=== PATIENT | male | born 1950 | race Caucasian/White ===

== ENCOUNTER 2016-12-11 11:20 | Emergency (ER) | payer BC ==
[2016-12-11 12:29] LABS: Hematocrit 32 % (42-52); Hemoglobin 11.3 g/dl (14.0-18.0); Mean Corpuscular HGB Conc 35 g/dl (31-36); Mean Corpuscular Hemoglobin 36 pg (27-31); Mean Corpuscular Volume 102 fL (80-94); Mean Platelet Volume 8 um3 (7.4-10.4); Red Blood Count 3.11 10^6/ul (4.0-5.4); Red Cell Distribution Width 20 % (10.5-15); White Blood Count 3.6 10^3/ul (3.5-10.8)
[2016-12-11 12:48] LABS: Troponin I 0.01 ng/mL (<0.04)
[2016-12-11 12:50] LABS: Albumin 3.8 g/dL (3.2-5.2); EGFR African American 51.1 (>60); EGFR Non-African American 39.7 (>60); Globulin 2.7 g/dL (2-4); Potassium 3.9 mmol/L (3.5-5.0); Total Bilirubin 0.6 mg/dL (0.2-1.0); Total Protein 6.5 g/dL (6.4-8.9)
--- NOTE | 2016-12-11 13:49 | RAD ---
INDICATION: Slurred speech COMPARISON: CT brain April 05, 2014 TECHNIQUE: Noncontrast axial source images were acquired from the skull base to the vertex. FINDINGS: Ventricles/sulci: The ventricles and cisterns are normal in size and configuration for age. Brain parenchyma: There is no focal parenchymal finding, evidence of intracranial mass, or intracranial mass effect. Intracranial hemorrhage:None. Extra-axial spaces: There are no abnormal extra axial fluid collections or evidence of extra-axial mass. Calvarium: There is no calvarial fracture or other calvarial abnormality. Scalp: There is no evidence of scalp or extracalvarial soft tissue abnormality. Paranasal sinuses/mastoid: The paranasal sinuses and mastoid air cells are clear. Other: None. IMPRESSION: NEGATIVE EXAMINATION
[2016-12-11 13:51] LABS: Urine Bacteria Absent (Absent); Urine Bilirubin Negative (Negative); Urine Glucose 2+(150 mg/dL) (Negative); Urine Nitrite Negative (Negative)
--- NOTE | 2016-12-11 17:20 | PN ---
Progress Note - Progress Note SOAP: Subjective: []Multiple myeloma a/p allo transplant 03/04/2016 Presented the ER following seeing PCP who was concerned for a stroke. States several weeks of intermittent slurred/garbled speech. agrees slight left facial droop. Denies any weakness of left arm or leg. Denies any headache, dizziness, or other neuro symptoms. PMH: DM, HTN, DM, severe anxiety, headaches, and bells palsy -- seen in past by Dr. Finn of neuro Meds: ASA, Revlimid maintanence -- see medrec for full list Objective: [] Vital Signs Temp Pulse Resp BP Pulse Ox 98.1 F 51 11 133/76 94 12/11/16 11:25 12/11/16 14:04 12/11/16 16:00 12/11/16 16:30 12/11/16 14:04 A&Ox3, EOMI, PERRLA, FREY, strength=bilat. Very slight droop of left eye noted, no left sided lip droop noted HRR, SR on tele Resp even and non-labored Laboratory Results - last 24 hr 12/11/16 12/11/16 12/11/16 12:15 12:15 12:15 WBC 3.6 RBC 3.11 L Hgb 11.3 L Hct 32 L MCV 102 H MCH 36 H MCHC 35 RDW 20 H Plt Count 106 L MPV 8 Neut % (Auto) 40.2 Lymph % (Auto) 39.9 [place] % (Auto) 10.8 H Eos % (Auto) 4.9 Baso % (Auto) 4.2 H Absolute Neuts (auto) 1.5 Absolute Lymphs (auto) 1.4 Absolute Monos (auto) 0.4 Absolute Eos (auto) 0.2 Absolute Basos (auto) 0.1 Absolute Nucleated RBC 0 Nucleated RBC % 0.1 Sodium 132 L Potassium 3.9 Chloride 101 Carbon Dioxide 24 Anion Gap 7 BUN 19 Creatinine 1.73 H Est GFR ( Amer) 51.1 Est GFR (Non-Af Amer) 39.7 BUN/Creatinine Ratio 11.0 Glucose 212 H Lactic Acid 1.5 Calcium 9.0 Total Bilirubin 0.60 AST 63 H ALT 60 H Alkaline Phosphatase 49 Troponin I 0.01 B-Natriuretic Peptide Total Protein 6.5 Albumin 3.8 Globulin 2.7 Albumin/Globulin Ratio 1.4 Urine Color Urine Appearance Urine pH Ur Specific [place] Urine Protein Urine Ketones Urine Blood Urine Nitrate Urine Bilirubin Urine Urobilinogen Ur Leukocyte Esterase Urine WBC (Auto) Urine RBC (Auto) Urine Bacteria Urine Glucose Urine Ascorbic Acid 12/11/16 12/11/16 12:15 13:25 WBC RBC Hgb Hct MCV MCH MCHC RDW Plt Count MPV Neut % (Auto) Lymph % (Auto) [place] % (Auto) Eos % (Auto) Baso % (Auto) Absolute Neuts (auto) Absolute Lymphs (auto) Absolute Monos (auto) Absolute Eos (auto) Absolute Basos (auto) Absolute Nucleated RBC Nucleated RBC % Sodium Potassium Chloride Carbon Dioxide Anion Gap BUN Creatinine Est GFR ( Amer) Est GFR (Non-Af Amer) BUN/Creatinine Ratio Glucose Lactic Acid Calcium Total Bilirubin AST ALT Alkaline Phosphatase Troponin I B-Natriuretic Peptide 258 H Total Protein Albumin Globulin Albumin/Globulin Ratio Urine Color Yellow Urine Appearance Clear Urine pH 5.0 Ur Specific [place] 1.016 Urine Protein 2+(100 mg/dl) H Urine Ketones Negative Urine Blood Negative Urine Nitrate Negative Urine Bilirubin Negative Urine Urobilinogen Negative Ur Leukocyte Esterase Negative Urine WBC (Auto) Absent Urine RBC (Auto) Absent Urine Bacteria Absent Urine Glucose 2+(150 mg/dl) H Urine Ascorbic Acid * H Assessment/Plan: []66 yo male with stable myeloma per labs, minimal change in light chains over last 3 months but without evidence for progressive disease s/p allotransplant approx. 8 months ago; ultimately very low risk for underlying myeloma as cause of neuro symptoms (no elevated IgM therefore no evidence for hyperviscosity). Known risk for hypercoagulability with Revlimid, currently on ASA. DDx includes recurrent [place] Palsy and TIA. If requires work-up for TIA would request hospitalist input for expertise, otherwise suggest outpatient work-up with MRI of head w/wo LANDON, carotid doppler LANDON, and referral back to Dr. Finn. I have instructed him to hold Revlimid and we will see him back in our office 12/13 as scheduled. Case discussed with ER , Dr. Schwarz (hospitalist), and attending (Dr. Jones )
--- NOTE | 2016-12-11 17:37 | ED ---
Davida Almodovar Anna, scribed for Christy Lepe MD on 12/11/16 at 1725 . Progress - Progress Note Progress Note: Patient was signed out from Dr. Long at shift change. Patient was evaluated by Umm Fountain and recommended for outpatient follow up. His diagnosis is facial droop, and he should follow up with Dr. Finn. Course/Dx - Diagnoses Provider Diagnoses: Facial droop The documentation as recorded by the Davida mcfarland Anna accurately reflects the service I personally performed and the decisions made by , Christy Lepe MD.
[2016-12-11 17:38] VITALS: BP 135/68
--- NOTE | 2016-12-11 20:58 | CONS ---
CC: Dr. Finn; Aditya Weston NP NEUROLOGY CONSULT: DATE OF CONSULT: 12/11/16 REQUESTING PHYSICIAN: Dr. Long in ED. NEUROLOGIST: Dr. Finn. PRIMARY CARE PROVIDER: Aditya Weston NP REASON FOR CONSULT: Left facial weakness and dysarthria. HISTORY OF PRESENT ILLNESS: The patient is a 66-year-old right-handed male who about 1 week ago started to have symptoms of feeling hoarse in the voice and feeling dry in the throat, gradually progressing to dysarthria and per the family, swelling of the left side of his face. He also intermittently had problem with walking and balance; however, this was not a continuous problem. He denies any double vision, numbness, choking on food, or weakness in the legs or arms and there has been no reports of confusion. He eventually came to the ED today for evaluation. PAST MEDICAL HISTORY: 1. Hypertension. 2. Diabetes, type 2. 3. Sleep apnea. 4. GERD. 5. History of multiple myeloma, s/p bone marrow allograft. He has closely been followed by Hematology, currently on Revlimid 6. Chronic kidney disease, stage 3. 7. Sluggish gallbladder with history of pancreatitis. 8. Anxiety. 9. Question of renal mass. 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 I looked at his picture on his driving license issued in 2009 with new picture, and there was no ptosis or obvious facial abnormality. PAST SURGICAL HISTORY: 1. He had a bone marrow transplant. 2. Melanoma in the right axilla. 3. Carpal tunnel release on the right hand. 4. Multiple cardiac catheterizations. MEDICATIONS: Include: 1. Metformin 500 mg p.o. b.i.d. 2. Zofran p.r.n. 3. Triamcinolone topical daily. 4. Spiriva 1 inhalation daily. 5. Protonix 40 mg p.o. daily. 6. Oxycodone p.r.n. 7. Nitroglycerin p.r.n. 8. Multivitamin. 9. Metoprolol XL 50 mg p.o. daily. 10. Losartan 50 mg p.o. daily. 11. Loperamide 4 mg p.o. 4 times daily p.r.n. 12. Lenalidomide (Revlimid) 10 mg p.o. daily for 21 days cycles and 7 days off 13. Lantus. 14. Isosorbide. 15. Gabapentin 300 mg 4 times a day. 16. Flexeril 10 mg p.o. t.i.d. p.r.n. 17. Colace. 18. Diltiazem CD 120 mg p.o. daily. 19. Cholecalciferol 6000 units daily. 20. Aspirin 81 mg p.o. daily. 21. Albuterol. 22. Acyclovir 400 mg p.o. b.i.d. 23. Xanax. ALLERGIES: No known drug allergies. FAMILY HISTORY: History of Alzheimer's disease in mother. Father at age 76 with renal failure, diabetes, and heart disease. One of the sisters has heart problems and he has a brother who of sarcoma. SOCIAL HISTORY: He quit smoking a few years ago, but has a long history of smoking prior to that. Drinks only occasionally/socially. Lives with his . REVIEW OF SYSTEMS: Complete review of systems was performed and other than not mentioned above is negative. PHYSICAL EXAM: Blood pressure 126/71, pulse rate 55, respiratory rate 12, O2 sat 94% on room air, temperature 98.1. The patient is awake, alert, and oriented x3. He is in no acute distress. Speech is fluent, but dysarthric; however, it is completely intelligible. Pupils are symmetric and reactive to light. Extraocular movements are intact. Visual acuña are intact by confrontation. There is a mild ptosis on the left eyelid and also slight facial droop on the left side. Sensation is intact to light touch and pinprick in V1 to V3 bilaterally other than a slight increase in sensation to pinprick in the left V3 distribution. Tongue is in midline. Palate elevates upward. Strength is 5/5 throughout. Sensation is intact to light touch and pinprick in the upper and lower extremities. [id number] is intact bilaterally with a very slight target tremor in the left hand with [id number]; however, there is no clear dysmetria. Rapid alternating movements are intact. Gait is narrow based, but cautious. Heart has regular rate and rhythm. Abdomen is slightly distended, but soft and nontender. DIAGNOSTIC STUDIES/LAB DATA: WBC 3.6, hemoglobin 11.3, hematocrit 32, platelets 106. Sodium 132, potassium 3.9, BUN 19, creatinine 1.73. AST 63, ALT 60, alkaline phosphatase 49. Imaging: CT of the head today was negative for acute abnormalities. ASSESSMENT AND PLAN: The patient is a 66-year-old male with history of multiple myeloma under chemotherapy with Revlimid now, who has developed gradual progressive dysarthria and left-sided facial droop within the last week. On exam, currently he has third nerve and probably 7th involvement. The progression of these are not consistent with a vascular event but rather with a slow growing pathology such as involvement of the meninges in the setting of multiple myeloma versus a new onset brain malignancy,. The patient needs an MRI with and without contrast plus an MRA. Based on those results may need an LP. After discussion with the patient and his felt that inpatient admission is more appropriate to proceed with the workup as outlined above. Time at bedside at least 45 minutes. [id number]/CPS #: [id number] MTDD
--- NOTE | 2016-12-23 21:15 | ED ---
I, Oh,Sonandiniun, scribed for Wilbert Long MD on 12/11/16 at 1419 . Neurological HPI - HPI Summary HPI Summary: This 66 y/o male presents to ED after being noted with slurred speech at family doctor office today AM. present at bedside also expresses concern about pt' s recent memory issues. She reports that pt "would put something in front of him and forget that he put it there". No recent head injury. Pt reports mild PUCKETT , but denies any fever, chills, or difficulty with gait. PMHx includes DM, HTN, GERD, carpal tunnel at RUE hand, multiple melanoma s/p removal, bone marros transplant, CAD s/p stent placement, and Rehman Palsy that is currently resolved. Pt cannot recall which side of his faced was affected by Rehman Palsy. Primary care involves Aditya Weston NP. - History of Current Complaint Chief Complaint: EDNeurologicalDeficit Stated Complaint: STROKE LIKE SYMPTOMS Time Seen by Provider: 12/11/16 11:33 Hx Obtained From: Patient, Family/Power Bender Operator - present at bedside, Medical Records Onset/Duration: Started hours ago, Still Present Timing: Constant Onset Severity: Moderate Current Severity: Moderate Character: Impaired Speech, Other: - "memory issues" per Aggravating: Nothing Alleviating: Nothing Associated Signs and Symptoms: Positive: Headache - mild, Impaired Speech - Additional Pertinent History Primary Care Physician: [id number] - Allergy/Home Medications Allergies/Adverse Reactions: Allergies Allergy/AdvReac Type Severity Reaction Status Date / Time No Known Allergies Allergy Verified 12/14/16 12:57 PMH/Surg Hx/FS Hx/Imm Hx Endocrine/Hematology History: Reports: Hx Diabetes - INSULIN and metformin, Hx Anemia Cardiovascular History: Reports: Hx Angina, Hx Coronary Artery Disease - STENT X3, Hx Hypercholesterolemia, Hx Hypertension, Other Cardiovascular Problems/ Disorders - 3 stents Denies: Hx Cardiac Arrest, Hx Pacemaker/ICD Respiratory History: Reports: Hx Asthma - possible, Hx Seasonal Allergies, Hx Sleep Apnea Denies: Other Respiratory Problems/Disorders - DENIES Comment Only: Hx Chronic Obstructive Pulmonary Disease (COPD) - possible GI History: Reports: Hx Gastroesophageal Reflux Disease Comment Only: Other GI Disorders - GERD/HX OD PANCREATITIS History: Reports: Hx Kidney Stones - many years ago Denies: Hx Renal Disease Comment Only: Other Problems/Disorders - benign growth on L kidney Musculoskeletal History: Reports: Hx Arthritis, Hx Back Problems - arthritis Sensory History: Reports: Hx Contacts or Glasses Denies: Hx Cataracts - lens implants, Hx Hearing Aid Opthamlomology History: Reports: Hx Contacts or Glasses Denies: Hx Cataracts - lens implants Neurological History: Reports: Other Neuro Impairments/Disorders - numbness R hand Psychiatric History: Reports: Hx Anxiety - with panic attacks Denies: Hx Panic Disorder - Cancer History Cancer Type, Location and Year: 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 MULTIPLE MELANOMA Hx Chemotherapy: Yes - Surgical History Surgery Procedure, Year, and Place: CAD - HEART STENT -, 09/2013 ( [employer] X3 - [employer] - @[place] - CONDITIONAL 5 FOR 1.5T ONLY). carpal tunnel/trigger finger surgery. cataracts. Rt AXILLA DISSECTION - REMOVED TUMOR-1977 - Immunization History Date of Tetanus Vaccine: Unk Date of Influenza Vaccine: Fall 2012 Infectious Disease History: No Infectious Disease History: Reports: Hx Shingles - 10/2015 Denies: Hx Clostridium Difficile, Hx Hepatitis, Hx Human Immunodeficiency Virus (HIV), Hx of Known/Suspected MRSA, Hx Tuberculosis, Hx Known/Suspected VRE , Hx Known/Suspected VRSA, History Other Infectious Disease, Traveled Outside the [place] in Last 30 Days - Family History Known Family History: Positive: Cardiac Disease - Social History Alcohol Use: Rare Substance Use Type: Reports: None Hx Tobacco Use: Yes - PIPE AND OCCASSIONAL CIGAR Smoking Status (MU): Former Smoker Type: Cigarettes Length of Time of Smoking/Using Tobacco: went form about 1pck/d Cigarettes,to pipe occ cigar. Have You Smoked in the Last Year: No Review of Systems Negative: Fever Negative: Blurred Vision, Erythema Negative: Sore Throat Negative: Chest Pain Negative: Shortness Of Breath, Cough Negative: Abdominal Pain, Vomiting, Nausea Negative: dysuria, hematuria Negative: Myalgia, Edema Positive: Headache - mild, Numbness - chronic numbness at BLE secondary to DM and at RUE hand secondary to carpal tunnel, Slurred Speech Negative: Anxious, Depressed All Other Systems Reviewed And Are Negative: Yes Physical Exam - Summary Physical Exam Summary: Constitutional: Well-developed, Well-nourished, Alert. (-) Distressed Skin: Warm, Dry HENT: Eyes: Conjunctiva normal Neck: Musculoskeletal ROM normal neck. (-) JVD, (-) Stridor, (-) Tracheal deviation Cardio: Rhythm regular, rate normal, Heart sounds normal; Intact distal pulses ; The pedal pulses are 2+ and symmetric. Radial pulses are 2+ and symmetric. (- ) Murmur Pulmonary/Chest wall: Effort normal. (-) Respiratory distress, (-) Wheezes, (-) Rales Abd: Soft. (-) Tenderness, (-) Distension, (-) Guarding, (-) Rebound Musculoskeletal: (-) Edema Lymph: (-) Cervical adenopathy Neuro: Alert, Oriented x3, Strength normal (+) Mild facial droop on left side. ( +) Mild ptosis on left eyelid. (-) Dysmetria, (-) Nystagmus, (-) Ataxia by finger to nose testing, (-) Sensory deficit. Psych: Mood and affect Normal Triage Information Reviewed: Yes Vital Signs On Initial Exam: Initial Vitals Temp Pulse Resp BP Pulse Ox 98.1 F 56 20 140/69 99 12/11/16 11:25 12/11/16 11:25 12/11/16 11:25 12/11/16 11:25 12/11/16 11:25 Vital Signs Reviewed: Yes - Srikanth Coma Scale Coma Scale Total: 15 Diagnostics - Vital Signs Vital Signs Temp Pulse Resp BP Pulse Ox 12/11/16 14:00 51 10 94 12/11/16 13:00 51 10 126/71 92 12/11/16 12:00 53 14 104/60 94 12/11/16 11:38 55 12 95 12/11/16 11:37 116/61 12/11/16 11:25 98.1 F 56 20 140/69 99 - Laboratory Lab Results: Lab Results 12/11/16 12/11/16 12/11/16 Range/Units 12:15 12:15 12:15 WBC 3.6 (3.5-10.8) 10^3/ul RBC 3.11 L (4.0-5.4) 10^6/ul Hgb 11.3 L (14.0-18.0) g/dl Hct 32 L (42-52) % MCV 102 H (80-94) fL MCH 36 H (27-31) pg MCHC 35 (31-36) g/dl RDW 20 H (10.5-15) % Plt Count 106 L (150-450) 10^3/ul MPV 8 (7.4-10.4) um3 Neut % (Auto) 40.2 (38-83) % Lymph % (Auto) 39.9 (25-47) % [place] % (Auto) 10.8 H (1-9) % Eos % (Auto) 4.9 (0-6) % Baso % (Auto) 4.2 H (0-2) % Absolute Neuts (auto) 1.5 (1.5-7.7) 10^3/ul Absolute Lymphs (auto) 1.4 (1.0-4.8) 10^3/ul Absolute Monos (auto) 0.4 (0-0.8) 10^3/ul Absolute Eos (auto) 0.2 (0-0.6) 10^3/ul Absolute Basos (auto) 0.1 (0-0.2) 10^3/ul Absolute Nucleated RBC 0 10^3/ul Nucleated RBC % 0.1 Sodium 132 L (133-145) mmol/L Potassium 3.9 (3.5-5.0) mmol/L Chloride 101 (101-111) mmol/L Carbon Dioxide 24 (22-32) mmol/L Anion Gap 7 (2-11) mmol/L BUN 19 (6-24) mg/dL Creatinine 1.73 H (0.67-1.17) mg/dL Est GFR ( Amer) 51.1 (>60) Est GFR (Non-Af Amer) 39.7 (>60) BUN/Creatinine Ratio 11.0 (8-20) Glucose 212 H (70-100) mg/dL Lactic Acid 1.5 (0.5-2.0) mmol/L Calcium 9.0 (8.6-10.3) mg/dL Total Bilirubin 0.60 (0.2-1.0) mg/dL AST 63 H (13-39) U/L ALT 60 H (7-52) U/L Alkaline Phosphatase 49 (34-104) U/L Troponin I 0.01 (<0.04) ng/mL Total Protein 6.5 (6.4-8.9) g/dL Albumin 3.8 (3.2-5.2) g/dL Globulin 2.7 (2-4) g/dL Albumin/Globulin Ratio 1.4 (1-3) Urine Color Urine Appearance Urine pH (5-9) Ur Specific [place] (1.010-1.030) Urine Protein (Negative) Urine Ketones (Negative) Urine Blood (Negative) Urine Nitrate (Negative) Urine Bilirubin (Negative) Urine Urobilinogen (Negative) Ur Leukocyte Esterase (Negative) Urine WBC (Auto) (Absent) Urine RBC (Auto) (Absent) Urine Bacteria (Absent) Urine Glucose (Negative) Urine Ascorbic Acid (Negative) 12/11/16 Range/Units 13:25 WBC (3.5-10.8) 10^3/ul RBC (4.0-5.4) 10^6/ul Hgb (14.0-18.0) g/dl Hct (42-52) % MCV (80-94) fL MCH (27-31) pg MCHC (31-36) g/dl RDW (10.5-15) % Plt Count (150-450) 10^3/ul MPV (7.4-10.4) um3 Neut % (Auto) (38-83) % Lymph % (Auto) (25-47) % [place] % (Auto) (1-9) % Eos % (Auto) (0-6) % Baso % (Auto) (0-2) % Absolute Neuts (auto) (1.5-7.7) 10^3/ul Absolute Lymphs (auto) (1.0-4.8) 10^3/ul Absolute Monos (auto) (0-0.8) 10^3/ul Absolute Eos (auto) (0-0.6) 10^3/ul Absolute Basos (auto) (0-0.2) 10^3/ul Absolute Nucleated RBC 10^3/ul Nucleated RBC % Sodium (133-145) mmol/L Potassium (3.5-5.0) mmol/L Chloride (101-111) mmol/L Carbon Dioxide (22-32) mmol/L Anion Gap (2-11) mmol/L BUN (6-24) mg/dL Creatinine (0.67-1.17) mg/dL Est GFR ( Amer) (>60) Est GFR (Non-Af Amer) (>60) BUN/Creatinine Ratio (8-20) Glucose (70-100) mg/dL Lactic Acid (0.5-2.0) mmol/L Calcium (8.6-10.3) mg/dL Total Bilirubin (0.2-1.0) mg/dL AST (13-39) U/L ALT (7-52) U/L Alkaline Phosphatase (34-104) U/L Troponin I (<0.04) ng/mL Total Protein (6.4-8.9) g/dL Albumin (3.2-5.2) g/dL Globulin (2-4) g/dL Albumin/Globulin Ratio (1-3) Urine Color Yellow Urine Appearance Clear Urine pH 5.0 (5-9) Ur Specific [place] 1.016 (1.010-1.030) Urine Protein 2+(100 mg/dl) H (Negative) Urine Ketones Negative (Negative) Urine Blood Negative (Negative) Urine Nitrate Negative (Negative) Urine Bilirubin Negative (Negative) Urine Urobilinogen Negative (Negative) Ur Leukocyte Esterase Negative (Negative) Urine WBC (Auto) Absent (Absent) Urine RBC (Auto) Absent (Absent) Urine Bacteria Absent (Absent) Urine Glucose 2+(150 mg/dl) H (Negative) Urine Ascorbic Acid * H (Negative) Result Diagrams: 12/11/16 12:15 12/11/16 12:15 Lab Statement: Any lab studies that have been ordered have been reviewed, and results considered in the medical decision making process. - CT Brain CT Interpretation: No Acute Changes - Negative exam CT Interpretation Completed By: Radiologist - EKG 1301 Cardiac Rate: Bradycardia - 50 bpm EKG Rhythm: Sinus Bradycardia Course/Dx - Diagnoses Provider Diagnoses: Facial droop - Physician Notifications Discussed Care of Patient With: Dr. Brian (Neurologist) at 1430 PM Instructed by Provider To: MD Will See In ED Discharge - Discharge Plan Condition: Guarded Disposition: HOME Referrals: Andreia Finn MD [Medical Doctor] - Aditya Weston NP [Primary Care Provider] - Additional Instructions: Follow up with Dr. Finn and consult with Dr. Finn to schedule an MRI. The documentation as recorded by the Aristides mcfarland Soohyun accurately reflects the service I personally performed and the decisions made by Ethan webster Jerry, MD.
== END 2016-12-11 17:38 | disposition home or self-care (01) ==
LOC: ED 11:20
DX: R29.810 Facial weakness (principal); I12.9 Hypertensive chronic kidney disease with stage 1 through stage 4 chronic kidney disease, or unspecified chronic kidney disease; E11.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mellitus with diabetic chronic kidney disease; N18.3 Chronic kidney disease, stage 3 (moderate); G47.30 Sleep apnea, unspecified; F41.9 Anxiety disorder, unspecified; K21.9 Gastro-esophageal reflux disease without esophagitis; Z85.820 Personal history of malignant melanoma of skin; Z79.82 Long term (current) use of aspirin
CPT/HCPCS: 36415; 70450; 80053; 81003; 81015; 83605; 83880; 84484; 85025; 93005; 99283

== ENCOUNTER → 2017-01-25 12:03 | Day surgery (SDC) | payer BC ==
[~2017-01-25 12:03] MED LIST: Buffered Lidocaine 1% SYRIN* 3 ML/SYR SYRINGE INTRADERM ONE; Bupivacaine 0.25% SDV* 30 ML ONE; Clindamycin 900 MG IVPREMIX(* 900 MG/50 ML SDV IV ONE; Midazolam* 1 MG/ML 2 ML VIAL (2 MG) ONE; fentaNYL* 50 MCG/ML 2 ML VIAL (100 MCG VIAL) ONE
[2017-01-25 15:53] VITALS: BP 114/71
== END | disposition home or self-care (01) ==
LOC: OREAST 12:03
PROVIDERS: ATTEND Plastic Surgery
DX: G56.01 Carpal tunnel syndrome, right upper limb (principal); E11.8 Type 2 diabetes mellitus with unspecified complications; Z79.4 Long term (current) use of insulin; I25.10 Atherosclerotic heart disease of native coronary artery without angina pectoris; Z95.5 Presence of coronary angioplasty implant and graft; I10 Essential (primary) hypertension; J45.909 Unspecified asthma, uncomplicated; Z87.891 Personal history of nicotine dependence; C90.00 Multiple myeloma not having achieved remission
CPT/HCPCS: J2250; J3010

== ENCOUNTER → 2017-10-02 10:26 | Day surgery (SDC) | payer BC ==
[~2017-10-02 10:26] MED LIST changes: -Buffered Lidocaine 1% SYRIN* 3 ML/SYR SYRINGE INTRADERM ONE; -Bupivacaine 0.25% SDV* 30 ML ONE; -Clindamycin 900 MG IVPREMIX(* 900 MG/50 ML SDV IV ONE; +Diazepam TAB(*) 5 MG ONE; +Heparin 2 UNITS/ML IVPREMIX* 1,000 ML IV ONE; +Heparin(*) 1000 UNIT/ML 10 ML VIAL CATH LAB IV ONE; +Iodixanol* (CONTRAST) 320 MG/ML 100 ML SDV ONE; +Lidocaine 1% INJ* 10 MG/ML 30 ML SDV ONE; +Midazolam* 1 MG/ML 10 ML VIAL (10 MG) ONE; -Midazolam* 1 MG/ML 2 ML VIAL (2 MG) ONE; +NS 0.9% 1000 ML* 1,000 ML IV SCH; +VERAPAMIL 2.5 MG/ML 4 ML VIAL ONE; +diPHENhydraMINE PO* 25 MG ONE; +nitroGLYCERIN DRIP* 25,000 MCG/250 ML BTL ONE
[2017-10-02 17:15] VITALS: BP 155/77
--- NOTE | 2017-10-03 09:39 | CATH ---
CC: Aditya Weston NP * CARDIAC CATHETERIZATION REPORT: DATE OF PROCEDURE: 10/02/17 INDICATIONS FOR PROCEDURE: The patient with epigastric discomfort with a history of moderate coronary artery disease with an abnormal nuclear stress test suggested with abnormal proximal anterior/anterolateral perfusion report assessed for the presence of progression in coronary artery disease. PROCEDURE: Coronary arteriography, left heart catheterization. The patient was interviewed and examined in the office where the risks and benefits were explained and he understood them and wished to proceed. The patient was brought to the cardiovascular laboratory where a formal time-out was performed. A coronary arteriography was performed. The patient was prepped and drape in sterile fashion. Of note, in the holding area the right radial artery was assessed and found to be of an appropriate size for an approach for the procedure. The patient was brought to the cardiovascular laboratory where a formal time-out performed and the patient was prepped and draped in sterile fashion. Right radial artery area was anesthetized with 1% lidocaine. The right radial artery was entered and a 6- Sammarinese Glidesheath was placed followed by the radial artery cocktail of 3000 units of heparin, 300 micrograms of nitroglycerin and 3 mg of verapamil. Coronary arteriography was performed utilizing a 5-Sammarinese 4 curved right coronary catheter as well as a 5- Sammarinese 3.5 curve left coronary catheter. Central aortic pressure was recorded using 5-Sammarinese Performa radial catheter, which was advanced to the ascending aorta. The catheter was then passed across the aortic valve into left ventricle , where left ventricular pressure was recorded and pull back was performed. Following this, the catheter was removed and the sheath was removed and hemostasis was obtained with a Vasc band. The total contrast used for the case was 75 cc of Omnipaque dye. The radiation exposure included 9.7 minutes of fluoro time. The air kerma radiation was 1262 milligray. The DAP radiation was 7348 microgray per meter sq. RESULTS: HEMODYNAMIC DATA: Central aortic pressure was recorded at 157/70 with a mean of 107, left ventricular pressure 158 over left ventricular end-diastolic pressure of 31 (of note, the patient was hydrated with at least 500 cc of normal saline prior to coming into the cardiovascular laboratory in light of his renal insufficiency). CORONARY ARTERIOGRAPHY: A. Right coronary artery - a dominant vessel supplying multiple acute marginal branches and the PDA ending in a posterior left ventricular branch. There was moderate narrowing seen in the proximal and mid segment of the right coronary artery with luminal reduction seen to be as much as 40% to 45%. The distal most last posterior left ventricular branch appeared to have a significant 80% obstruction noted in its worst view. B. Left coronary artery: 1. Left main - widely patent. 2. Left anterior descending artery. There was a 60% to 65% proximal lesion in its worst view in the left anterior descending artery. The continuation of the left anterior descending artery had mild 25% to 30% narrowing seen throughout its mid-to- distal portion. The first diagonal branch was a small caliber vessel as was the second diagonal branch. The second diagonal branch itself had moderate disease seen in the mid segment of a small caliber vessel with narrowing as much as 55%. 3. The circumflex artery was a nondominant vessel with a widely patent stent that was placed from the past. There was [id number] narrowing of 35 % to 40% seen in the mid circumflex just after the stented area. This appeared to be unchanged from prior cardiac catheterization. OVERALL ASSESSMENT: Evidence of significant left ventricular diastolic dysfunction with increased left ventricular end diastolic pressure which partly could be due to aggressive hydration, precardiac catheterization in light of renal insufficiency. Moderate coronary artery disease in the left system with the proximal narrowing appearing to be with the proximal lesion being somewhat worst than in prior cardiac catheterization. Stress test however, failed to show any [id number] anterior apical ischemia noted. The most significant lesion was a distal posterior left ventricular branch of the right coronary artery, which reviewing the nuclear images does seem to show the presence of ischemia. At this point in time being a branch distal vessel attempts will be made for increased medical management and if we cannot stabilize the patient with this consideration for stenting the distal vessel for symptoms will be made. At that point, alternative fractional flow reserve analysis of the proximal LAD could be made as well. For now, we will work on medical management and consider increasing the metoprolol and possibly the amlodipine and following him carefully for symptom stabilization. In the meantime, he will also have a BUN and creatinine drawn in 48 hours to decide on restarting his metformin in light of his renal insufficiency. [id number]/[facility] #: [id number] [facility]
== END | disposition home or self-care (01) ==
LOC: CHICATH 10:26
PROVIDERS: ATTEND Internal Medicine Cardiovascular Disease
DX: I25.119 Atherosclerotic heart disease of native coronary artery with unspecified angina pectoris (principal); R10.13 Epigastric pain; R94.39 Abnormal result of other cardiovascular function study; N28.9 Disorder of kidney and ureter, unspecified; E11.9 Type 2 diabetes mellitus without complications; Z79.84 Long term (current) use of oral hypoglycemic drugs; Z79.4 Long term (current) use of insulin; G47.30 Sleep apnea, unspecified; K21.9 Gastro-esophageal reflux disease without esophagitis
CPT/HCPCS: 76937; 93458; A9270-GY; J1644; J2250; J3010

== ENCOUNTER 2017-10-26 10:44 | Inpatient (IN) | payer BC ==
[2017-10-26] MEDS ORDERED: NS 0.9% 1000 ML* 1,000 ML IV ONE (11:07)
--- OUTSIDE RECORDS SUMMARY | 2017-10-26 11:07 | XMS REPORT ---
:1950 External Reference #:[id number] Author Organization [facility] Address [address] [address] Phone [phone] Care Team Providers Name Role Phone Emmanuel David NP Primary Care Physician Unavailable Payers Type Date Identification Numbers Payment Provider Subscriber Commercial Effective: Policy Number: [id number] BS Facets Charo Josse 2012 PayID: [id number] [address] [address] [place] [id number] Medigap Part B Effective: 2009 Policy Number: BS Of CNLeonor Mancilla Josse [id number] Expires: 2012 PayID: [id number] [address] [address] [place] [id number] Problems Date Description Provider Status Onset: 09/27/2011 Coronary arteriosclerosis Jacqueline Garg D.O. Active Onset: 02/26/2012 Chest pain Jacqueline Garg D.O. Active Onset: 06/04/2012 Hyperlipidemia Brianda Butcher N.PPaul Active Onset: 06/04/2012 Benign essential hypertension Brianda Butcher, N.PPaul Active Onset: 10/30/2012 Coronary arteriosclerosis Jacqueline Garg D.O. Active Onset: 09/15/2013 Angina decubitus Jacqueline Garg D.O. Active Onset: 11/28/2013 Essential hypertension Jimmie Malone M.D., [facility], Active [facility] Onset: 11/28/2013 Chronic ischemic heart disease Jimmie Malone M.D., [facility], Active [facility] Onset: 11/28/2013 Radiation injury Jimmie Malone M.D., [facility], Active [facility] Onset: 03/26/2015 Tremor Andreia Finn M.D. Active Onset: 03/26/2015 Headache Andreia Finn M.D. Active Onset: 07/14/2015 Essential hypertension Jimmie Malone M.D., [facility], Active [facility] Onset: 07/14/2015 Chronic ischemic heart disease, Jimmie Malone M.D., [facility], Active unspecified [facility] Onset: 08/10/2016 Carpal tunnel syndrome of right Andreia Finn M.D. Active wrist Onset: 12/14/2016 Facial palsy Andreia Finn M.D. Active Onset: 08/14/2017 Snapping thumb syndrome Jericho Herr MD Active Onset: 08/14/2017 Acquired trigger finger Jericho Herr MD Active Onset: 09/05/2017 Angina pectoris Jimmie Malone M.D., [facility], Active [facility] Onset: 09/18/2017 Lateral epicondylitis Jericho Herr MD Active Onset: 10/08/2017 Athscl heart disease of [place] Jimmie Malone M.D., [facility] , Active art w oth ang pct[facility] Family History Date Family Member(s) Problem(s) Comments General Heart Disease General Diabetes General Cancer Father due to Renal () - was in Failure his 70s. 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 Used to smoke cigarettes then pipe then cigars. Recreational Drug Use Denies Drug Use Daily Caffeine Consumes on average 2 cups of regular coffee per day Daily Caffeine Consumes on average 1 soda diet per day Exercise Type/Frequency Exercises regularly Walks, 3 times a week, 3 miles at a time, Allergies, Adverse Reactions, Alerts Date Description Reaction Status Severity Comments 09/04/2016 Augmentin active diarrhea 01/27/2011 NKDA inactive Medications Medication Date Status Form Strength Qnty SIG Indications Ordering Provider Atorvastatin 09/12 Active Tablets 20mg 90tab take 1 Jimmie Calcium s tablet at [place], bedtime M.DPaul, [facility], [facility] Amlodipine 09/05 Active Tablets 5mg 30tab 1 by mouth I10 Jimmie Besylate s every day Brock Malone, [facility], [facility] Humalog Kwikpen 12/14 Active Solution 100Unit/M 15ml sliding Andreia . Pen-Inject L scale Brock Finn Acyclovir 12/14 Active Tablets 400mg 30tab take 1 Andreia M. s tablet by jonny Finn.Holli twice a day prn Metoprolol 07/14 Active Tablets ER 50mg 180ta 1 by mouth Jimmie Succinate 24HR bs in in the [facility], morning 1 M.D., pill in at [facility], night [facility] Isosorbide 10/28 Active Tablets ER 120mg 90tab 1 by mouth Jimmie Mononitrate ER 24HR s every day Brock Malone, [facility], [facility] [place] 04/17 Active Aerosol 75mcg/Act 3Mon 1 puff bid prn Ordering Provider Proair HFA 04/17 Active Aerosol 108(90Bas 1unit 2 puffs po e) s q4h prn Ordering mcg/Act Provider Oxygen Active 2Liters/M qhs /0000 in Metformin HCL Active Tablets 1000mg 1/2 tablet Unknown 0000 twice daily (500 mg twice daily) Triamcinolone Active Ointment 0.05% 15gm apply to Unknown Acetonide In /0000 affected Absorbase area sparingly daily Lantus Active Solution 100Unit/M 48 units Unknown /0000 L qam Multiple Vitamins Active Tablets 1 po qd Unknown /0000 Iron Active Tablets 325(65Fe) 1 by mouth Unknown /0000 mg every day Oxycodone HCL Active Tablets 10mg as needed Unknown for pain Spiriva Active Capsules 18mcg 1 unit Unknown Handihaler /0000 inhalation daily Gabapentin Active Capsules 300mg 1 am 1 Unknown /0000 noon 1 evening 1 hs Omeprazole Active Capsules 40mg 1 po qd` Unknown DR Aspir-[address] 81mg 1 by mouth Unknown / every day Vitamin D High Active Capsules 2000Units 2 by mouth Unknown Potency /0000 every day Alprazolam Active Tablets 0.5mg 1-2 Unknown tablets 4 times daily as needed Nitroglycerin Active Tablets 0.4mg 1 sl Sub q5mins x3 as needed for chest pain Nystatin Active Powder 10Bu Unknown Valium 12/14 Hx Tablets 5mg 2tabs 1 - 2 tab [facility] PO prior Huma, - to MRI M.D. 07/25 Clopidogrel 10/27 Hx Tablets 75mg 90tab 1 po qd Jimmie [facility] Antoine Ernandez M.D., 03/22 [facility] [place] 09/23 Hx Tablets 5-325mg 20tab 1-2 by Norberto s mouth q Manuela, - as needed M.D. 07/13 Nortriptyline HCL 05/21 Hx Capsules 10mg 120ca 3 po q Andreia Mckeon Antoine Gutierrez M.D. 03/22 Valium 05/19 Hx Tablets 5mg 2tabs 1 - 2 tabs 333.1 by mouth Manuela, - prior to M.D. 03/22 Imdur 01/02 Hx Tablets ER 60mg 150ta 1 1/ po Jimmie 24HR bs Antoine Welch M.D., 10/28 [facility] Diltiazem HCL ER 11/28 Hx Caps ER 120mg 180ca 1 cap by Jimmie 24HR ps mouth Antoine Malone twice a M.D., 08/[address] [facility] Imdur 11/24 Hx Tablets ER 60mg 30tab 1 po qd Jimmie 24HR Antoine Ernandez M.D., 01/02 [facility] Imdur 11/13 Hx Tablets ER 30mg 30tab 1 po qd Jacqueline /2014 24HR Antoine Stallworth D.O. 11/24 Diltiazem CD 10/27 Hx Caps ER 120mg 30cap 1 po qd 24HR s Ordering - Provider 11/28 Aspirin 09/23 Hx Tablets 81mg 100ta 1 po qd bs Antoine Garg.O. 07/25 Plavix 09/23 Hx Tablets 75mg 30tab 1 po qd s Antoine Garg.O. 10/27 Omeprazole 09/15 Hx Capsules 20mg 90cap [address] georges Ordering - Provider 11/04 Ranitidine HCL 09/15 Hx Capsules 150mg 60cap 1 po bid s Ordering - Provider 10/27 Imdur 09/15 Hx Tablets ER 60mg 30tab 1 po daily 24HR s Antoine Garg.O. 11/04 Metoprolol 03/06 Hx Tablets ER 50mg 45tab take one Jimmie Succinate ER 24HR s tablet by Faisal - jonny Gutiérrez, 07/14 every [facility] morning [facility] Atorvastatin 02/25 Hx Tablets 40mg 30tab take one Jimmie Calcium s tablet by Antoine Malone M.D., 09/03 every day [facility] Toprol XL 02/23 Hx Tablets ER 50mg 30tab 1 po qd 24HR s Antoine Garg.O. 09/15 Metoprolol 02/16 Hx Tablets 50mg 60tab 1 po qd Tartrate s Antoine Garg.O. 02/23 Simvastatin 02/16 Hx Tablets 40mg 30tab Take One s Tablet By [place] - Mouth D.O. 02/25 Evening Plavix 02/16 Hx Tablets 75mg 30tab Take One s Tablet By [place] - Mouth D.O. 04/17 Nitrostat 02/16 Hx Tablets 0.4mg 25tab place 1 Sub s tablet Faisal - under the M.DPaul, 09/25 tongue [facility] every 5 [facility] minutes up to 3 doses as needed Xanax 06/08 Hx Tablets 0.5mg 1 to 2 po Antoine Begum M.D. 07/25 Glucotrol XL 06/08 Hx Tablets 10mg 30tab 1 PO qd Antoine Luu M.D. 01/30 Nexium 06/08 Hx Capsules 40mg 30cap 1 PO qd Antoine Luu M.D. 01/27 Zestril 06/08 Hx Tablets 2.5mg 30tab 1 PO qd Antoine Luu M.D. 01/27 Carafate Hx Tablets 1gm 120ta 1 po qid Unknown /0000 bs prn - 01/30 Omeprazole Hx Capsules 40mg 30cap 1 po bid Unknown /0000 s - 02/16 Glipizide ER Hx Tablets ER 10mg 90tab bid Unknown /0000 24HR s - 02/25 Byetta Hx Solution 5mcg/0.02 1mon sc bid Unknown /0000 ML - 01/30 Viagra Hx Tablets 100mg 8tabs 1 po 30 Unknown /0000 min before - intercours 04/21 Avapro Hx Tablets 150mg 30tab 1 po qd Unknown /0000 s - 09/03 Percocet Hx Tablets 5-325mg 40tab 1-2 po q6h Unknown /0000 s prn pain - 01/30 Flexeril Hx Tablets 10mg 40tab 1/2 to 1 Unknown /0000 s po q8h prn - 01/30 Chlorthalidone Hx Tablets 25mg 45tab 1 po qd Unknown /0000 s - 09/15 Amitriptyline HCL 0000 Hx Tablets 10mg 30tab 1/2 po qd Unknown /0000 s - 09/27 Protonix 00/ Hx Tablets DR 40mg 100ta 1 po qd Unknown /0000 bs - 04/17 Novolog Penfill Hx Solution 100Unit/M 10-20 Unknown /0000 L units - before 09/03 (depending on sugar), 45 units @ noon, and 30 units before supper daily. Fish Oil 00/00 Hx 1 qd Unknown / - 11/04 Zantac Hx Capsules 150mg 1 po qd Unknown / - 09/15 Protonix 00/[address] 40mg 30tab 1 po qd Unknown / s - 09/25 Calcitriol Hx Capsules 0.25mcg 90cap 1 po qd Unknown / s - 09/03 Vitamin D 400 / Hx qd Unknown / - 03/22 Topiramate Hx Tablets 25mg 120ta 1 tab po q Unknown / bs evening - 10/27 Hydrochlorothiazi Hx Tablets 25mg 1 by mouth Unknown de /0000 every day - 01/02 Morphine Sulfate Hx Caps ER 30mg 1 by mouth Unknown ER /0000 24HR bid prn - 09/03 Gabapentin / Hx Tablets 600mg bid Unknown / - 09/25 Flexeril Hx Tablets 10mg as needed Unknown /0000 - 07/25 Zofran 00 Hx Tablets 4mg 1 tab by Unknown /0000 mouth - every 6 10/04 hours as needed nausea Valtrex Hx Tablets 500mg take 1 Unknown /0000 tablet by - mouth 12/14 twice day as needed Chemo Therapy 00/00 Hx Unknown /0000 - 09/25 Lasix 00/00 Hx Tablets 20mg 1 by mouth Unknown /0000 every day - 09/03 Colace 00 Hx Capsules 100mg 2 po daily Unknown /0000 prn - 07/25 Humalog 00 Hx Solution 100Unit/M as Unknown /0000 Cartridge L directed - 09/25 Losartan 00 Hx Tablets 50mg 1 by mouth Unknown Potassium /0000 every day - 07/23 Revlimid 0000 Hx Capsules 10mg on for 21 Unknown /0000 days then - off for 7 Novolog Mix 70/30 00/00 Hx Supn (70-30)10 as Unknown Prefilled Flexpen /0000 0Unit/ML directed` - 12/14 Nitroglycerin 00/00 Hx Tablets 0.4mg 1 spray Unknown /0000 Sub with chest - pain,march 02 every 5 mts x max 3 times. if chestpain continues go to er Diltiazem CD 00 Hx Caps ER 120mg 1 by mouth /0000 24HR every day - 09/25 Influenza Virus Active Injection Andreia Mckeon Vaccine /0000 Brock Finn Medications Administered in Office Medication Date Status Form Strength Qnty SIG Indications Ordering Provider Celestone 3 mg Administered Injection Jericho and 3mg 017 MD Carmenza Celestone 3 mg Administered Injection Jericho and 3mg 017 MD Carmenza Celestone 3 mg Administered Injection Jericho and 3mg 017 MD Carmenza Celestone 3 mg Administered Injection Jericho and 3mg 017 MD Carmenza Depomedrol Administered Injection Soni 80MG 015 [place]AND[place] Celestone 3 mg Administered Injection Norberto and 3mg 015 Brock Roy Depomedrol Administered Injection Norberto 80MG 015 Brock Roy Depomedrol Administered Injection Norberto 80MG 012 Brock Roy Depomedrol Administered Injection Norberto 40MG 011 Brock Roy Vital Signs Date Vital Result Comment 10/08/2017 Height 65 inches 5'5" Weight 252.00 lb w/ shoes Heart Rate 76 /min BP Systolic Sitting 142 mmHg lue large cuff BP Diastolic Sitting 86 mmHg lue large cuff BP Systolic Standing 140 mmHg lue large cuff BP Diastolic Standing 80 mmHg lue large cuff Respiratory Rate 18 /min BMI (Body Mass Index) 41.9 kg/m2 Ejection Fraction 55-60% echo 05/15/16 09/26/2017 Height 65 inches 5'5" Weight 248.00 lb Heart Rate 72 /min BP Systolic 172 mmHg home unit (Not Accurate) BP Diastolic 77 mmHg home unit (Not Accurate) BP Systolic Sitting 148 mmHg la, reg BP Diastolic Sitting 64 mmHg la, reg BMI (Body Mass Index) 41.3 kg/m2 Ejection Fraction 55%-60% 05/15/16 echo 09/18/2017 Height 65 inches 5'5" Weight 248.00 lb Heart Rate 80 /min Respiratory Rate 16 /min Body Temperature 97.7 F Pain Level 0 BMI (Body Mass Index) 41.3 kg/m2 09/05/2017 Height 65 inches 5'5" Weight 274.25 lb with shoes Heart Rate 66 /min BP Systolic Sitting 164 mmHg Ra lrg cuff BP Diastolic Sitting 98 mmHg Ra lrg cuff BP Systolic Standing 166 mmHg Ra lrg cuff BP Diastolic Standing 92 mmHg Ra lrg cuff BMI (Body Mass Index) 45.6 kg/m2 Ejection Fraction 55% - 60% echo 05/15/16 08/14/2017 Height 65 inches 5'5" Weight 248.00 lb Heart Rate 72 /min BP Systolic 130 mmHg BP Diastolic 77 mmHg Respiratory Rate 18 /min Body Temperature 97.4 F Pain Level 6 BMI (Body Mass Index) 41.3 kg/m2 01/09/2017 Height 65 inches 5'5" Weight 245.00 lb Heart Rate 68 /min BP Systolic Sitting 118 mmHg BP Diastolic Sitting 72 mmHg Respiratory Rate 14 /min BMI (Body Mass Index) 40.8 kg/m2 12/14/2016 Height 65 inches 5'5" Weight 248.00 lb Heart Rate 78 /min BP Systolic Sitting 118 mmHg BP Diastolic Sitting 64 mmHg Respiratory Rate 16 /min BMI (Body Mass Index) 41.3 kg/m2 09/26/2016 Height 65 inches 5'5" Weight 215.00 lb Heart Rate 72 /min BP Systolic Sitting 118 mmHg BP Diastolic Sitting 64 mmHg Respiratory Rate 18 /min BMI (Body Mass Index) 35.8 kg/m2 09/04/2016 Height 65 inches 5'5" Weight 215.00 lb Heart Rate 72 /min 74 BP Systolic Sitting 122 mmHg left arm, reg cuff BP Diastolic Sitting 60 mmHg left arm, reg cuff BP Systolic Standing 104 mmHg left arm, reg cuff BP Diastolic Standing 58 mmHg left arm, reg cuff Respiratory Rate 24 /min BMI (Body Mass Index) 35.8 kg/m2 Ejection Fraction 55-60% 05/15/16 08/10/2016 Height 65 inches 5'5" Weight 228.00 lb Heart Rate 72 /min BP Systolic Sitting 124 mmHg BP Diastolic Sitting 66 mmHg Respiratory Rate 14 /min BMI (Body Mass Index) 37.9 kg/m2 12/02/2015 Height 65 inches 5'5" Weight 270.00 lb Heart Rate 64 /min BP Systolic Sitting 138 mmHg BP Diastolic Sitting 66 mmHg Respiratory Rate 14 /min BMI (Body Mass Index) 44.9 kg/m2 07/14/2015 Height 65 inches 5'5" Weight 264.00 lb Heart Rate 78 /min 80 BP Systolic Sitting 140 mmHg right arm, large cuff BP Diastolic Sitting 86 mmHg right arm, large cuff BP Systolic Standing 134 mmHg right arm, large cuff BP Diastolic Standing 80 mmHg right arm, large cuff Respiratory Rate 16 /min BMI (Body Mass Index) 43.9 kg/m2 Ejection Fraction 55-60% 09/24/13 04/21/2015 Height 65 inches 5'5" Weight 262.00 lb Heart Rate 68 /min BP Systolic 138 mmHg BP Diastolic 74 mmHg Pain Level 0 BMI (Body Mass Index) 43.6 kg/m2 03/26/2015 Height 65 inches 5'5" Weight 262.00 lb Heart Rate 72 /min BP Systolic Sitting 148 mmHg BP Diastolic Sitting 72 mmHg Respiratory Rate 24 /min BMI (Body Mass Index) 43.6 kg/m2 03/19/2015 Height 65 inches 5'5" Weight 262.00 lb Pain Level 3 8 (at most painful) BMI (Body Mass Index) 43.6 kg/m2 12/25/2014 Height 65 inches 5'5" Weight 260.00 lb Pain Level 7 BMI (Body Mass Index) 43.3 kg/m2 10/28/2014 Height 65 inches 5'5" Weight 260.00 lb Heart Rate 74 /min 82 BP Systolic Sitting 156 mmHg left arm, large cuff BP Diastolic Sitting 84 mmHg left arm, large cuff BP Systolic Standing 154 mmHg left arm, large cuff BP Diastolic Standing 86 mmHg left arm, large cuff Respiratory Rate 24 /min BMI (Body Mass Index) 43.3 kg/m2 10/27/2014 Height 65 inches 5'5" Heart Rate 76 /min BP Systolic 154 mmHg BP Diastolic 78 mmHg 09/23/2014 Height 65 inches 5'5" Weight 264.75 lb Heart Rate 76 /min BP Systolic 153 mmHg BP Diastolic 76 mmHg BMI (Body Mass Index) 44.1 kg/m2 08/27/2014 Height 65.75 inches 5'5.75" Weight 257.00 lb Heart Rate 76 /min BP Systolic Sitting 142 mmHg BP Diastolic Sitting 82 mmHg Respiratory Rate 16 /min BMI (Body Mass Index) 41.8 kg/m2 05/19/2014 Height 65.75 inches 5'5.75" Weight 257.00 lb Heart Rate 7620 /min BP Systolic Sitting 152 mmHg BP Diastolic Sitting 80 mmHg Respiratory Rate 20 /min BMI (Body Mass Index) 41.8 kg/m2 01/02/2014 Height 65.75 inches 5'5.75" Weight 258.00 lb Heart Rate 6870 /min BP Systolic Sitting 144 mmHg left arm, large cuff BP Diastolic Sitting 72 mmHg left arm, large cuff BP Systolic Standing 140 mmHg left arm, large cuff BP Diastolic Standing 68 mmHg left arm, large cuff Respiratory Rate 20 /min BMI (Body Mass Index) 42.0 kg/m2 11/28/2013 Height 65.75 inches 5'5.75" Weight 260.00 lb Heart Rate 7880 /min BP Systolic Sitting 140 mmHg left arm, large cuff BP Diastolic Sitting 62 mmHg left arm, large cuff BP Systolic Standing 134 mmHg left arm, large cuff BP Diastolic Standing 60 mmHg left arm, large cuff Respiratory Rate 22 /min BMI (Body Mass Index) 42.3 kg/m2 11/04/2013 Height 65 inches 5'5" Weight 265.00 lb Heart Rate 78 /min BP Systolic Sitting 140 mmHg BP Diastolic Sitting 70 mmHg BMI (Body Mass Index) 44.1 kg/m2 10/27/2013 Height 65 inches 5'5" Weight 265.25 lb Heart Rate 76 /min BP Systolic Sitting 130 mmHg BP Diastolic Sitting 72 mmHg BMI (Body Mass Index) 44.1 kg/m2 09/15/2013 Height 65 inches 5'5" Weight 266.25 lb Heart Rate 76 /min Regular BP Systolic Sitting 156 mmHg BP Diastolic Sitting 64 mmHg BMI (Body Mass Index) 44.3 kg/m2 04/17/2013 Height 65 inches 5'5" Weight 259.00 lb Heart Rate 68 /min Regular BP Systolic Sitting 128 mmHg BP Diastolic Sitting 68 mmHg BMI (Body Mass Index) 43.1 kg/m2 10/30/2012 Height 65 inches 5'5" Weight 259.75 lb Heart Rate 80 /min BP Systolic Sitting 142 mmHg BP Diastolic Sitting 82 mmHg BMI (Body Mass Index) 43.2 kg/m2 06/04/2012 Height 65 inches 5'5" Weight 253.25 lb Heart Rate 80 /min BP Systolic Sitting 112 mmHg BP Diastolic Sitting 64 mmHg BMI (Body Mass Index) 42.1 kg/m2 02/26/2012 Height 65 inches 5'5" Weight 256.00 lb Heart Rate 80 /min BP Systolic Sitting 130 mmHg BP Diastolic Sitting 70 mmHg BMI (Body Mass Index) 42.6 kg/m2 09/27/2011 Height 65 inches 5'5" Weight 253.00 lb Heart Rate 68 /min BP Systolic 120 mmHg BP Diastolic 78 mmHg BMI (Body Mass Index) 42.1 kg/m2 09/21/2011 Height 65 inches 5'5" Weight 250.00 lb Heart Rate 69 /min BP Systolic 135 mmHg BP Diastolic 77 mmHg BMI (Body Mass Index) 41.6 kg/m2 05/01/2011 Height 65 inches 5'5" Weight 247.00 lb Heart Rate 76 /min BP Systolic Sitting 106 mmHg BP Diastolic Sitting 60 mmHg BMI (Body Mass Index) 41.1 kg/m2 02/16/2011 Height 65 inches 5'5" Weight 246.50 lb Heart Rate 66 /min BP Systolic Sitting 120 mmHg l BP Diastolic Sitting 70 mmHg l BMI (Body Mass Index) 41.0 kg/m2 01/30/2011 Height 65 inches 5'5" Weight 251.00 lb Heart Rate 81 /min BP Systolic Sitting 134 mmHg left arm, right arm 128/66 BP Diastolic Sitting 74 mmHg left arm, right arm 128/66 BP Systolic Standing 152 mmHg right arm BP Diastolic Standing 68 mmHg right arm BMI (Body Mass Index) 41.8 kg/m2 06/22/2005 Height 65 inches 5'5" Weight 235.00 lb Heart Rate 74 /min BP Systolic Sitting 126 mmHg left arm, right arm 134/84 BP Diastolic Sitting 80 mmHg left arm, right arm 134/84 BP Systolic Standing 136 mmHg BP Diastolic Standing 90 mmHg O2 % BldC Oximetry 96 % BMI (Body Mass Index) 39.1 kg/m2 Results Test Date Test Result H/L Range Note Basic Metabolic Panel 10/04/2017 Sodium 138 mmol/L 133-145 Potassium 4.0 mmol/L 3.5-5.0 Chloride 104 mmol/L 101-111 Co2 Carbon Dioxide 28 mmol/L 22-32 Anion Gap 6 mmol/L 2-11 Glucose 122 mg/dL High 70-100 Blood Urea Nitrogen 26 mg/dL High 6-24 Creatinine 1.71 mg/dL High 0.67-1.17 BUN/Creatinine Ratio 15.2 8-20 Calcium 9.0 mg/dL 8.6-10.3 Egfr Non- 40.1 >60 Egfr 51.6 >60 1 Laboratory test finding 10/02/2017 Point of Care 141 mg/dL High 70-100 2 Glucose Cath Panel 09/26/2017 Partial Thrombo Time 27.5 seconds 26.0-36.3 PTT CBC Auto Diff 09/26/2017 White Blood Count 10.1 10^3/uL 3.5-10.8 Red Blood Count 3.59 10^6/uL Low 4.0-5.4 Hemoglobin 11.7 g/dL Low 14.0-18.0 Hematocrit 34 % Low 42-52 Mean Corpuscular Volume 95 fL High 80-94 Mean Corpuscular Hemoglobin 33 pg High 27-31 Mean Corpuscular HGB Conc 34 g/dL 31-36 Red Cell Distribution Width 18 % High 10.5-15 Platelet Count 182 10^3/uL 150-450 Mean Platelet Volume 8 um3 7.4-10.4 Abs Neutrophils 7.5 10^3/uL 1.5-7.7 Abs Lymphocytes 1.7 10^3/uL 1.0-4.8 Abs Monocytes 0.7 10^3/uL 0-0.8 Abs Eosinophils 0.2 10^3/uL 0-0.6 Abs Basophils 0 10^3/uL 0-0.2 Abs Nucleated RBC 0.01 10^3/uL Granulocyte % 74.0 % 38-83 Lymphocyte % 16.7 % Low 25-47 Monocyte % 7.3 % 1-9 Eosinophil % 1.6 % 0-6 Basophil % 0.4 % 0-2 Nucleated Red Blood Cells % 0.1 Inr/Protime 09/26/2017 Inr 0.85 0.77-1.02 3 Basic Metabolic Panel 09/26/2017 Sodium 133 mmol/L 133-145 Potassium 4.3 mmol/L 3.5-5.0 Chloride 99 mmol/L Low 101-111 Co2 Carbon Dioxide 29 mmol/L 22-32 Anion Gap 5 mmol/L 2-11 Glucose 235 mg/dL High 70-100 Blood Urea Nitrogen 24 mg/dL 6-24 Creatinine 1.82 mg/dL High 0.67-1.17 BUN/Creatinine Ratio 13.2 8-20 Calcium 8.6 mg/dL 8.6-10.3 Egfr Non- 37.3 >60 Egfr 48.0 >60 4 Laboratory test finding 09/06/2017 Alt (SGPT) 14 U/L 7-52 Ast (Sgot) 15 U/L 13-39 Lipid Profile (Trig/Chol/HDL) 09/06/2017 Triglycerides 190 mg/dL 5 Cholesterol 233 mg/dL 6 HDL Cholesterol 33.2 mg/dL 7 LDL Cholesterol 162 mg/dL 8 Basic Metabolic Panel 09/06/2017 Sodium 137 mmol/L 133-145 Potassium 4.2 mmol/L 3.5-5.0 Chloride 102 mmol/L 101-111 Co2 Carbon Dioxide 30 mmol/L 22-32 Anion Gap 5 mmol/L 2-11 Glucose 171 mg/dL High 70-100 Blood Urea Nitrogen 27 mg/dL High 6-24 Creatinine 1.54 mg/dL High 0.67-1.17 BUN/Creatinine Ratio 17.5 8-20 Calcium 9.5 mg/dL 8.6-10.3 Egfr Non- 45.3 >60 Egfr 58.2 >60 9 Laboratory test finding 09/06/2017 Alt 14 U/L 7-52 Ast (Sgot) 15 U/L 13-39 Lipid Profile (Trig/Chol/HDL) 09/06/2017 Triglycerides 190 mg/dL 10 Cholesterol 233 mg/dL 11 HDL Cholesterol 33.2 mg/dL 12 LDL Cholesterol 162 mg/dL 13 Basic Metabolic Panel 09/06/2017 Sodium 137 mmol/L 133-145 Potassium 4.2 mmol/L 3.5-5.0 Chloride 102 mmol/L 101-111 Co2 Carbon Dioxide 30 mmol/L 22-32 Anion Gap 5 mmol/L 2-11 Glucose 171 mg/dL High 70-100 Blood Urea Nitrogen 27 mg/dL High 6-24 Creatinine 1.54 mg/dL High 0.67-1.17 BUN/Creatinine Ratio 17.5 8-20 Calcium 9.5 mg/dL 8.6-10.3 Egfr Non- 45.3 >60 Egfr 58.2 >60 14 Basic Metabolic Panel 12/14/2016 Sodium 133 mmol/L 133-145 Potassium 4.1 mmol/L 3.5-5.0 Chloride 100 mmol/L Low 101-111 Co2 Carbon Dioxide 27 mmol/L 22-32 Anion Gap 6 mmol/L 2-11 Glucose 207 mg/dL High 70-100 Blood Urea Nitrogen 20 mg/dL 6-24 Creatinine 2.01 mg/dL High 0.67-1.17 BUN/Creatinine Ratio 10.0 8-20 Calcium 9.4 mg/dL 8.6-10.3 Egfr Non- 33.4 >60 Egfr 43.0 >60 15 Laboratory test finding 09/06/2016 Alt (SGPT) 15 U/L 7-52 16 Ast (Sgot) 11 U/L Low 13-39 17 Lipid Profile (Trig/Chol/HDL) 09/06/2016 Triglycerides 116 mg/dL 18 Cholesterol 135 mg/dL 19 HDL Cholesterol 27.9 mg/dL 20 LDL Cholesterol 84 mg/dL 21 Comp Metabolic Panel 03/28/2016 Sodium 136 mmol/L 133-145 Potassium 4.5 mmol/L 3.5-5.0 Chloride 100 mmol/L Low 101-111 Co2 Carbon Dioxide 28 mmol/L 22-32 Anion Gap 8 mmol/L 2-11 Glucose 199 mg/dL High 70-100 Blood Urea Nitrogen 10 mg/dL 6-24 Creatinine 1.34 mg/dL High 0.67-1.17 BUN/Creatinine Ratio 7.5 Low 8-20 Calcium 10.1 mg/dL 8.6-10.3 Total Protein 6.0 g/dL Low 6.4-8.9 Albumin 3.9 g/dL 3.2-5.2 Globulin 2.1 g/dL 2-4 Albumin/Globulin Ratio 1.9 1-3 Total Bilirubin 0.50 mg/dL 0.2-1.0 Alkaline Phosphatase 65 U/L 34-104 Alt 16 U/L 7-52 Ast 17 U/L 13-39 Egfr Non- 53.5 >60 Egfr 68.8 >60 22 Laboratory test finding 03/28/2016 Magnesium 1.7 mg/dL Low 1.9-2.7 CBC Auto Diff 03/28/2016 White Blood Count 8.3 10^3/uL 3.5-10.8 Red Blood Count 3.28 10^6/uL Low 4.0-5.4 Hemoglobin 10.4 g/dL Low 14.0-18.0 Hematocrit 31 % Low 42-52 Mean Corpuscular Volume 95 fL High 80-94 Mean Corpuscular Hemoglobin 32 pg High 27-31 Mean Corpuscular HGB Conc 33 g/dL 31-36 Red Cell Distribution Width 18 % High 10.5-15 Platelet Count 286 10^3/uL 150-450 Mean Platelet Volume 8 um3 7.4-10.4 Abs Neutrophils 5.2 10^3/uL 1.5-7.7 Abs Lymphocytes 2.0 10^3/uL 1.0-4.8 Abs Monocytes 0.8 10^3/uL 0-0.8 Abs Eosinophils 0.3 10^3/uL 0-0.6 Abs Basophils 0.1 10^3/uL 0-0.2 Abs Nucleated RBC 0 10^3/uL Granulocyte % 62.5 % 38-83 Lymphocyte % 23.8 % Low 25-47 Monocyte % 9.4 % High 1-9 Eosinophil % 3.1 % 0-6 Basophil % 1.2 % 0-2 Nucleated Red Blood Cells % 0 Lipid Profile (Trig/Chol/HDL) 11/04/2014 Triglycerides 86 mg/dL 23, 24 Cholesterol 108 mg/dL 23, 25 HDL Cholesterol 37.0 mg/dL 23, 26 LDL Cholesterol 54 mg/dL 23, 27 Laboratory test finding 11/04/2014 Alt 49 U/L 7-52 23, 28 Ast 25 U/L 13-39 23, 29 Laboratory test finding 05/21/2014 Erythrocyte Sed Rate 15 mm/Hr 0-20 Basic Metabolic Panel 11/23/2013 Sodium 134 mmol/L 133-145 Potassium 4.2 mmol/L 3.5-5.0 Chloride 102 mmol/L 101-111 Co2 Carbon Dioxide 27.0 mmol/L 22-32 Anion Gap 5.0 mmol/L 2-11 Glucose 139 mg/dL High 70-100 Blood Urea Nitrogen 22 mg/dL 6-24 Creatinine 1.40 mg/dL 0.50-1.40 BUN/Creatinine Ratio 15.7 8-20 Calcium 8.8 mg/dL 8.1-9.9 Egfr Non- 51.2 >60 Egfr 65.8 >60 30 Basic Metabolic Panel 11/19/2013 Sodium 132 mmol/L Low 133-145 Potassium 4.1 mmol/L 3.5-5.0 Chloride 101 mmol/L 101-111 Co2 Carbon Dioxide 27.0 mmol/L 22-32 Anion Gap 4.0 mmol/L 2-11 Glucose 192 mg/dL High 70-100 Blood Urea Nitrogen 21 mg/dL 6-24 Creatinine 1.50 mg/dL High 0.50-1.40 BUN/Creatinine Ratio 14.0 8-20 Calcium 8.6 mg/dL 8.1-9.9 Egfr Non- 47.3 >60 Egfr 60.8 >60 31 CBC No Diff 11/19/2013 White Blood Count 8.9 10^3/uL 4.8-10.8 Red Blood Count 3.58 10^6/uL Low 4.0-5.4 Hemoglobin 8.6 g/dL Low 14.0-18.0 Hematocrit 27 % Low 42-52 Mean Corpuscular Volume 75 fL Low 80-94 Mean Corpuscular Hemoglobin 24 pg Low 27-31 Mean Corpuscular HGB Conc 32 g/dL 31-36 Red Cell Distribution Width 20 % High 10.5-15 Platelet Count 318 10^3/uL 150-450 Mean Platelet Volume 8 um3 7.4-10.4 Inr/Protime 11/19/2013 Inr 0.92 0.85-1.06 Laboratory test finding 11/19/2013 Activated Partial 28.7 seconds 24.0- 36.1 Thrombo Time Basic Metabolic Panel 09/25/2013 Sodium 133 mmol/L 133-145 Potassium 4.3 mmol/L 3.5-5.0 Chloride 100 mmol/L Low 101-111 Co2 Carbon Dioxide 27.0 mmol/L 22-32 Anion Gap 6.0 mmol/L 2-11 Glucose 229 mg/dL High 70-100 Blood Urea Nitrogen 18 mg/dL 6-24 Creatinine 1.50 mg/dL High 0.50-1.40 BUN/Creatinine Ratio 12.0 8-20 Calcium 8.8 mg/dL 8.1-9.9 Egfr Non- 47.3 >60 Egfr 60.8 >60 32 Basic Metabolic Panel 09/17/2013 Sodium 133 mmol/L 133-145 Potassium 4.6 mmol/L 3.5-5.0 Chloride 101 mmol/L 101-111 Co2 Carbon Dioxide 28.0 mmol/L 22-32 Anion Gap 4.0 mmol/L 2-11 Glucose 136 mg/dL High 70-100 Blood Urea Nitrogen 17 mg/dL 6-24 Creatinine 1.40 mg/dL 0.50-1.40 BUN/Creatinine Ratio 12.1 8-20 Calcium 8.9 mg/dL 8.1-9.9 Egfr Non- 51.2 >60 Egfr 65.8 >60 33 CBC Auto Diff 09/17/2013 White Blood Count 9.3 10^3/uL 4.8-10.8 Red Blood Count 3.68 10^6/uL Low 4.0-5.4 Hemoglobin 9.1 g/dL Low 14.0-18.0 Hematocrit 28 % Low 42-52 Mean Corpuscular Volume 77 fL Low 80-94 Mean Corpuscular Hemoglobin 25 pg Low 27-31 Mean Corpuscular HGB Conc 32 g/dL 31-36 Red Cell Distribution Width 19 % High 10.5-15 Platelet Count 298 10^3/uL 150-450 Mean Platelet Volume 8 um3 7.4-10.4 Abs Neutrophils 7.2 10^3/uL 1.5-7.7 Abs Lymphocytes 1.2 10^3/uL 1.0-4.8 Abs Monocytes 0.5 10^3/uL 0-0.8 Abs Eosinophils 0.4 10^3/uL 0-0.6 Abs Basophils 0.1 10^3/uL 0-0.2 Abs Nucleated RBC 0 10^3/uL Granulocyte % 77.1 % 38-83 Lymphocyte % 13.0 % Low 25-47 Monocyte % 5.2 % 1-9 Eosinophil % 4.1 % 0-6 Basophil % 0.6 % 0-2 Nucleated Red Blood Cells % 0 Inr/Protime 09/17/2013 Inr 0.90 0.85-1.06 34 Cell Morphology 09/17/2013 Microcytosis 1+ Hypochromasia 1+ Basophilic Stippling 1+ Lipid Profile (Trig/Chol/HDL) 04/03/2013 Triglycerides 109 mg/dL 40-200 Cholesterol 111 mg/dL Less than 200 HDL Cholesterol 35 mg/dL Low 40-60 35 Cholesterol/HDL Ratio 3.2 Average 1-4.44 LDL Cholesterol 54.2 Less Than 100 36 Laboratory test finding 04/03/2013 Alt 29 U/L 14-54 37 Ast 21 U/L 12-42 38 Lipid Profile (Trig/Chol/HDL) 10/23/2012 Triglycerides 128 mg/dL 40-200 Cholesterol 93 mg/dL Low Less than 200 HDL Cholesterol 24 mg/dL Low 40-60 39 Cholesterol/HDL Ratio 3.9 Average 1-4.44 LDL Cholesterol 43.4 mg/dL Less Than 100 40 Urine Culture & 07/06/2012 M <SEE 41 Sensitivi NOTE> Lipid Profile 06/04/2012 Triglyceride 141 mg/dL 40-200 23 (Trig/Chol/HDL) Cholesterol 115 mg/dL Less Than 200 23, 42 High Density Lipoprotein 34 mg/dL Low 40-60 23, 43 Cholesterol/HDL Ratio 3.38 AVERAGE 1-4.97 23 Low Density Lipoprotein 53 mg/dL Less Than 100 23, 44 Laboratory test finding 06/04/2012 Ast (Sgot) 28 U/L 12- 23 Alt (SGPT) 41 U/L - 23 Lipid Profile (Trig/Chol/HDL) 02/21/2012 Triglyceride 134 mg/dL 40-200 Cholesterol 124 mg/dL Less Than 200 45 High Density Lipoprotein 29 mg/dL Low 40-60 46 Cholesterol/HDL Ratio 4.28 AVERAGE 1-4.97 Low Density Lipoprotein 68 mg/dL Less Than 100 47 Laboratory test finding 02/21/2012 Alt (SGPT) 35 U/L - Ast (Sgot) 29 U/L - Lipid Profile (Trig/Chol/HDL) 09/07/2011 Triglyceride 162 mg/dL 40-200 Cholesterol 123 mg/dL Less Than 200 48 High Density Lipoprotein 31 mg/dL Low 40-60 49 Cholesterol/HDL Ratio 3.97 AVERAGE 1-4.97 Low Density Lipoprotein 60 mg/dL Less Than 100 50 Liver Function Panel 09/07/2011 Total Protein 7.3 GM/DL 6.2-8.1 Albumin 3.8 GM/DL 3.2-5.2 Globulin 3.5 GM/DL 2-4 Albumin/Globulin Ratio 1.1 1-3 Bilirubin Total 0.6 mg/dL 0.4-1.5 51 Bilirubin Direct 0.1 mg/dL 0.1-0.5 Indirect Bilirubin 0.5 mg/dL 0.3-1.0 52 Alkaline Phosphatase 72 U/L 39-117 Alt (SGPT) 36 U/L 17-63 Ast (Sgot) 25 U/L - Liver Function Panel 03/13/2011 Total Protein 6.9 GM/DL 6.2-8.1 Albumin 3.6 GM/DL 3.2-5.2 Globulin 3.3 GM/DL 2-4 Albumin/Globulin Ratio 1.1 1-3 Bilirubin Total 0.8 mg/dL 0.4-1.5 53 Bilirubin Direct 0.1 mg/dL 0.1-0.5 Indirect Bilirubin 0.7 mg/dL 0.3-1.0 54 Alkaline Phosphatase 64 U/L 39-117 Alt (SGPT) 34 U/L 17-63 Ast (Sgot) 25 U/L 12-42 Lipid Profile (Trig/Chol/HDL) 03/13/2011 Triglyceride 151 mg/dL 40-200 Cholesterol 110 mg/dL Less Than 200 55 High Density Lipoprotein 29 mg/dL Low 40-60 56 Cholesterol/HDL Ratio 3.79 AVERAGE 1-4.97 Low Density Lipoprotein 51 mg/dL Less Than 100 57 Basic Metabolic Panel 02/13/2011 Sodium 132 mmol/L Low 135-145 Potassium 4.6 mmol/L 3.5-5.0 Chloride 97 mmol/L Low 101-111 Co2 (Carbon Dioxide) 29.0 mmol/L 22-32 Anion Gap 6.0 mmol/L 2-11 58 Glucose 186 mg/dL High 70-100 BUN 17 mg/dL 6-24 Creatinine 1.30 mg/dL 0.50-1.40 One Over Creatinine 0.70 BUN/Creatinine Ratio 13.1 8-20 Calcium 9.4 mg/dL 8.1-9.9 eGFR Non- 56.3 > 60 eGFR 72.4 > 60 59 Basic Metabolic Panel 02/06/2011 Sodium 134 mmol/L Low 135-145 23 Potassium 4.3 mmol/L 3.5-5.0 23 Chloride 95 mmol/L Low 101-111 23 Co2 (Carbon Dioxide) 28.0 mmol/L 22-32 23 Anion Gap 11.0 mmol/L 2-11 23, 60 Glucose 179 mg/dL High 70-100 23 BUN 26 mg/dL High 6-24 23 Creatinine 1.40 mg/dL 0.50-1.40 23 One Over Creatinine 0.70 23 BUN/Creatinine Ratio 18.6 8-20 23 Calcium 9.6 mg/dL 8.1-9.9 23 eGFR Non- 51.7 > 60 23 eGFR 66.5 > 60 23, 61 MRSA/Vre Screen 02/02/2011 MRSA/Vre Culture [facility] 62 CBC Auto Diff 01/30/2011 White Blood Count 8.2 CUMM 4.8-10.8 63 Red Cell Count 4.53 CUMM Low 4.6-6.2 63 Hemoglobin 13.4 g/dL Low 14.0-18.0 63 Hematocrit 40 % Low 42-52 63 Mean Corpuscular Volume 88 um3 80-94 63 Mean Corpuscular Hemoglob 30 pg 27-31 63 Mean Corpuscular HGB Cone 34 g/dL 32-36 63 Redcell Distribution WDTH 15 % 10.5-15 63 Platelet Count 267 CUMM 150-450 63 Mean Platelet Volume 8.0 um3 7.4-10.4 63 Gran % 70.7 % 38-83 63 Lymph % 19.9 % Low 25-47 63 Mononuclear % 5.7 % 1-9 63 Eosinophil % 3.3 % 0-6 63 Basophil % 0.4 % 0-2 63 Abs Lymphs 1.6 1.0-4.8 63 Abs Mononuclear 0.5 0-0.8 63 Absolute Neutrophil Count 5.8 1.5-7.7 63 Abs Eosinophils 0.3 0-0.6 63 Abs Basophils 0 0-0.2 63, 64 Protime 01/30/2011 Inr 0.94 0.82-1.17 63, 65 Protime 11.0 SEC 10.2-14.8 63, 66 Basic Metabolic Panel 01/30/2011 Sodium 134 mmol/L Low 135-145 63 Potassium 4.0 mmol/L 3.5-5.0 63 Chloride 101 mmol/L 101-111 63 Co2 (Carbon Dioxide) 25.0 mmol/L 22-32 63 Anion Gap 8.0 mmol/L 2-11 63, 67 Glucose 247 mg/dL High 70-100 63 BUN 19 mg/dL 6-24 63 Creatinine 1.20 mg/dL 0.50-1.40 63 One Over Creatinine 0.80 63 BUN/Creatinine Ratio 15.8 8-20 63 Calcium 9.5 mg/dL 8.1-9.9 63 eGFR Non- 61.8 > 60 63 eGFR 79.4 > 60 63, 68 Basic Metabolic Panel 07/31/2008 Sodium 133 mmol/L Low 135-145 69 Potassium 4.4 mmol/L 3.5-5.0 69 Chloride 96 mmol/L Low 101-111 69 Co2 (Carbon Dioxide) 30.0 mmol/L 22-32 69 Anion Gap 7.0 mmol/L 2-11 69, 70 Glucose 208 mg/dL High 70-100 69, 71 BUN 19 mg/dL 6-24 69 Creatinine 1.2 mg/dL 0.5-1.4 69 One Over Creatinine 0.83 69 BUN/Creatinine Ratio 15.8 8-20 69 Calcium 9.9 mg/dL 8.1-9.9 69, 72 CBC With Electronic Diff 07/31/2008 White Blood Count 7.8 CUMM 4.8-10.8 69 Red Cell Count 4.88 CUMM 4.6-6.2 69 Hemoglobin 14.8 g/dL 14.0-18.0 69 Hematocrit 43 % 42-52 69 Mean Corpuscular Volume 87 um3 80-94 69 Mean Corpuscular Hemoglob 30 pg 27-31 69 Mean Corpuscular HGB Cone 35 g/dL 32-36 69 Redcell Distribution WDTH 14 % 10.5-15 69 Platelet Count 307 CUMM 150-450 69 Mean Platelet Volume 7.2 um3 Low 7.4-10.4 69 Gran % 70.4 % 38-83 69 Lymph % 21.1 % 20-45 69 Mononuclear % 5.7 % 1-9 69 Eosinophil % 2.3 % 0-6 69 Basophil % 0.5 % 0-2 69 Abs Lymphs 1.7 1.0-4.8 69 Abs Mononuclear 0.4 0-0.8 69 Absolute Neutrophil Count 5.5 1.5-7.7 69 Abs Eosinophils 0.2 0-0.6 69 Abs Basophils 0 0-0.2 69 1 Because ethnic data is not always readily available, this report includes an eGFR for both -Americans and non- Americans. The National Kidney Disease Education Program (NKDEP) does not endorse the use of the MDRD equation for patients that are not between the ages of 18 and 70, are , have extremes of body size, muscle mass, or nutritional status, or are non- or non-. According to the National Kidney Foundation, irrespective of diagnosis, the stage of the disease is based on the level of kidney function: Stage Description GFR(mL/min/1.73 m(2)) 1 Kidney damage with normal or decreased GFR 90 2 Kidney damage with mild decrease in GFR 60-89 3 Moderate decrease in GFR 30-59 4 Severe decrease in GFR 15-29 5 Kidney failure <15 (or dialysis) 2 Scientific Director: [id number] 3 Please note the change in INR reference range effective 17. 4 Because ethnic data is not always readily available, this report includes an eGFR for both -Americans and non- Americans. The National Kidney Disease Education Program (NKDEP) does not endorse the use of the MDRD equation for patients that are not between the ages of 18 and 70, are , have extremes of body size, muscle mass, or nutritional status, or are non- or non-. According to the National Kidney Foundation, irrespective of diagnosis, the stage of the disease is based on the level of kidney function: Stage Description GFR(mL/min/1.73 m(2)) 1 Kidney damage with normal or decreased GFR 90 2 Kidney damage with mild decrease in GFR 60-89 3 Moderate decrease in GFR 30-59 4 Severe decrease in GFR 15-29 5 Kidney failure <15 (or dialysis) 5 Desirable: <150 Borderline High: 150-199 High: 200-499 Very High: >500 6 Desirable: <200 Borderline High: 200-239 High: >239 7 Low: <40 Desirable: 40-60 High: >60 8 Desirable: <100 Near Optimal: 100-129 Borderline High: 130-159 High: 160-189 Very High: >189 9 Because ethnic data is not always readily available, this report includes an eGFR for both -Americans and non- Americans. The National Kidney Disease Education Program (NKDEP) does not endorse the use of the MDRD equation for patients that are not between the ages of 18 and 70, are , have extremes of body size, muscle mass, or nutritional status, or are non- or non-. According to the National Kidney Foundation, irrespective of diagnosis, the stage of the disease is based on the level of kidney function: Stage Description GFR(mL/min/1.73 m(2)) 1 Kidney damage with normal or decreased GFR 90 2 Kidney damage with mild decrease in GFR 60-89 3 Moderate decrease in GFR 30-59 4 Severe decrease in GFR 15-29 5 Kidney failure <15 (or dialysis) 10 Desirable: <150 Borderline High: 150-199 High: 200-499 Very High: >500 11 Desirable: <200 Borderline High: 200-239 High: >239 12 Low: <40 Desirable: 40-60 High: >60 13 Desirable: <100 Near Optimal: 100-129 Borderline High: 130-159 High: 160-189 Very High: >189 14 Because ethnic data is not always readily available, this report includes an eGFR for both -Americans and non- Americans. The National Kidney Disease Education Program (NKDEP) does not endorse the use of the MDRD equation for patients that are not between the ages of 18 and 70, are , have extremes of body size, muscle mass, or nutritional status, or are non- or non-. According to the National Kidney Foundation, irrespective of diagnosis, the stage of the disease is based on the level of kidney function: Stage Description GFR(mL/min/1.73 m(2)) 1 Kidney damage with normal or decreased GFR 90 2 Kidney damage with mild decrease in GFR 60-89 3 Moderate decrease in GFR 30-59 4 Severe decrease in GFR 15-29 5 Kidney failure <15 (or dialysis) 15 Because ethnic data is not always readily available, this report includes an eGFR for both -Americans and non- Americans. The National Kidney Disease Education Program (NKDEP) does not endorse the use of the MDRD equation for patients that are not between the ages of 18 and 70, are , have extremes of body size, muscle mass, or nutritional status, or are non- or non-. According to the National Kidney Foundation, irrespective of diagnosis, the stage of the disease is based on the level of kidney function: Stage Description GFR(mL/min/1.73 m(2)) 1 Kidney damage with normal or decreased GFR 90 2 Kidney damage with mild decrease in GFR 60-89 3 Moderate decrease in GFR 30-59 4 Severe decrease in GFR 15-29 5 Kidney failure <15 (or dialysis) 16 FASTING Copy to ALTAF Platt, Dr. Malick Loya Copy Result to: EMMANUEL DAVID NP ([id number]) 17 FASTING Copy to ALTAF Platt, Dr. Malick Loya Copy Result to: EMMANUEL DAVID NP ([id number]) 18 Desirable <150 Borderline high 150-199 High 200-499 Very High >500 19 Desirable <200 Borderline high 200-239 High >239 20 Low <40 Desirable: 40-60 High: >60 21 Desirable: <100 mg/dL Near Optimal: 100-129 mg/dL Borderline High: 130-159 mg/dL High: 160-189 mg/dL Very High: >189 mg/dL 22 Because ethnic data is not always readily available, this report includes an eGFR for both -Americans and non- Americans. The National Kidney Disease Education Program (NKDEP) does not endorse the use of the MDRD equation for patients that are not between the ages of 18 and 70, are , have extremes of body size, muscle mass, or nutritional status, or are non- or non-. According to the National Kidney Foundation, irrespective of diagnosis, the stage of the disease is based on the level of kidney function: Stage Description GFR(mL/min/1.73 m(2)) 1 Kidney damage with normal or decreased GFR 90 2 Kidney damage with mild decrease in GFR 60-89 3 Moderate decrease in GFR 30-59 4 Severe decrease in GFR 15-29 5 Kidney failure <15 (or dialysis) 23 FASTING 24 Desirable <150 Borderline high 150-199 High 200-499 Very High >500 25 Desirable <200 Borderline high 200-239 High >239 26 Low <40 Desirable: 40-60 High: >60 27 Desirable <100 Near Optimal 100-129 Borderline high 130-159 High 160-189 Very High >189 28 FASTING 29 FASTING 30 Because ethnic data is not always readily available, this report includes an eGFR for both -Americans and non- Americans. The National Kidney Disease Education Program (NKDEP) does not endorse the use of the MDRD equation for patients that are not between the ages of 18 and 70, are , have extremes of body size, muscle mass, or nutritional status, or are non- or non-. According to the National Kidney Foundation, irrespective of diagnosis, the stage of the disease is based on the level of kidney function: Stage Description GFR(mL/min/1.73 m(2)) 1 Kidney damage with normal or decreased GFR 90 2 Kidney damage with mild decrease in GFR 60-89 3 Moderate decrease in GFR 30-59 4 Severe decrease in GFR 15-29 5 Kidney failure <15 (or dialysis) 31 Because ethnic data is not always readily available, this report includes an eGFR for both -Americans and non- Americans. The National Kidney Disease Education Program (NKDEP) does not endorse the use of the MDRD equation for patients that are not between the ages of 18 and 70, are , have extremes of body size, muscle mass, or nutritional status, or are non- or non-. According to the National Kidney Foundation, irrespective of diagnosis, the stage of the disease is based on the level of kidney function: Stage Description GFR(mL/min/1.73 m(2)) 1 Kidney damage with normal or decreased GFR 90 2 Kidney damage with mild decrease in GFR 60-89 3 Moderate decrease in GFR 30-59 4 Severe decrease in GFR 15-29 5 Kidney failure <15 (or dialysis) 32 Because ethnic data is not always readily available, this report includes an eGFR for both -Americans and non- Americans. The National Kidney Disease Education Program (NKDEP) does not endorse the use of the MDRD equation for patients that are not between the ages of 18 and 70, are , have extremes of body size, muscle mass, or nutritional status, or are non- or non-. According to the National Kidney Foundation, irrespective of diagnosis, the stage of the disease is based on the level of kidney function: Stage Description GFR(mL/min/1.73 m(2)) 1 Kidney damage with normal or decreased GFR 90 2 Kidney damage with mild decrease in GFR 60-89 3 Moderate decrease in GFR 30-59 4 Severe decrease in GFR 15-29 5 Kidney failure <15 (or dialysis) 33 Because ethnic data is not always readily available, this report includes an eGFR for both -Americans and non- Americans. The National Kidney Disease Education Program (NKDEP) does not endorse the use of the MDRD equation for patients that are not between the ages of 18 and 70, are , have extremes of body size, muscle mass, or nutritional status, or are non- or non-. According to the National Kidney Foundation, irrespective of diagnosis, the stage of the disease is based on the level of kidney function: Stage Description GFR(mL/min/1.73 m(2)) 1 Kidney damage with normal or decreased GFR 90 2 Kidney damage with mild decrease in GFR 60-89 3 Moderate decrease in GFR 30-59 4 Severe decrease in GFR 15-29 5 Kidney failure <15 (or dialysis) 34 Please note the change in the INR reference range effective 13. 35 HDL Interpretation: Undesirable: High Risk: Less than 40 mg/dL Desirable: Low Risk: Greater than 60 mg/dL 36 LDL Interpretation: Low Risk Optimal Level: LDL Less than 100 mg/dL Near or Above Optimal: LDL 100-129 mg/dL Borderline High Risk: LDL 130-159 mg/dL High Risk: LDL 160-189 mg/dL Very High Risk: LDL Greater than 189 mg/dL 37 FASTING 38 FASTING 39 HDL Interpretation: Undesirable: High Risk: Less than 40 MG/DL Desirable: Low Risk: Greater than 60 MG/DL 40 LDL Interpretation: Low Risk Optimal Level: LDL Less than 100 MG/DL Near or Above Optimal: LDL 100-129 MG/DL Borderline High Risk: LDL 130-159 MG/DL High Risk: LDL 160-189 MG/DL Very High Risk: LDL Greater than 189 MG/DL 41 RUN DATE: 07/08/12 [facility] NMI LIVE PAGE 1 RUN TIME: 45 Specimen Inquiry RUN USER: INTERFACE Name: THAD LOAIZA Status: DIS Larry Re07/06/12 Age/Sex: 62/M Unit#: [id number] Location: : 50 SPEC #: [id number] ANTOINE: 07/06/12 STATUS: COMP REQ #: [id number] RECD: 07/06/[address] [facility] [address]: Sue SCOTT,Gaye Cobb SOURCE: URINE ENTR: 07/06/12 [facility] DR: Enrico LOPES,Emmanuel Camarena [facility]: ORDERED: URINE C S QUERIES: SPECIMEN DESCRIPTION: URINE, RANDOM ACT WKST: UR 07/08/12 #1 Procedure Result Verified Site > URINE CULTURE SENSITIVI Final -0945 ML FINAL: NO GROWTH DAY 2 (<1,000 CFU/mL) ML - [facility] State Permit #[id number] [address] [place] [address] DEPARTMENT OF PATHOLOGY, [address] [place] [address] [facility] Permit #[id number] Lorenzo Lowry M.D. Director Camille Buenrostro M.D. Urologist Md 42 CHOLESTEROL INTERPRETATION: Desirable: Less than 200 MG/DL Borderline-High Risk: 200-239 MG/DL High-Risk: 240 MG/DL and over 43 HDL INTERPRETATION: Undesirable: High Risk: Less than 40 MG/DL Desirable: Low Risk: Greater than 60 MG/DL 44 LDL INTERPRETATION: Low Risk Optimal Level: LDL Less than 100 MG/DL Near or Above Optimal: LDL 100-129 MG/DL Borderline High Risk: LDL 130-159 MG/DL High Risk: LDL 160-189 MG/DL Very High Risk: LDL Greater than 189 MG/DL 45 CHOLESTEROL INTERPRETATION: Desirable: Less than 200 MG/DL Borderline-High Risk: 200-239 MG/DL High-Risk: 240 MG/DL and over 46 HDL INTERPRETATION: Undesirable: High Risk: Less than 40 MG/DL Desirable: Low Risk: Greater than 60 MG/DL 47 LDL INTERPRETATION: Low Risk Optimal Level: LDL Less than 100 MG/DL Near or Above Optimal: LDL 100-129 MG/DL Borderline High Risk: LDL 130-159 MG/DL High Risk: LDL 160-189 MG/DL Very High Risk: LDL Greater than 189 MG/DL 48 CHOLESTEROL INTERPRETATION: Desirable: Less than 200 MG/DL Borderline-High Risk: 200-239 MG/DL High-Risk: 240 MG/DL and over 49 HDL INTERPRETATION: Undesirable: High Risk: Less than 40 MG/DL Desirable: Low Risk: Greater than 60 MG/DL 50 LDL INTERPRETATION: Low Risk Optimal Level: LDL Less than 100 MG/DL Near or Above Optimal: LDL 100-129 MG/DL Borderline High Risk: LDL 130-159 MG/DL High Risk: LDL 160-189 MG/DL Very High Risk: LDL Greater than 189 MG/DL 51 A metabolite of Naproxen, O-desmethylnaproxen, has been shown to interfere with the Jendrassik-Barstow method for measuring total bilirubin. Samples from patients who have taken Naproxen have shown spurious elevation in total bilirubin levels. 52 Please note updated reference range, effective 05/12/10 53 A metabolite of Naproxen, O-desmethylnaproxen, has been shown to interfere with the Jendrassik-Barstow method for measuring total bilirubin. Samples from patients who have taken Naproxen have shown spurious elevation in total bilirubin levels. 54 Please note updated reference range, effective 05/12/10 55 CHOLESTEROL INTERPRETATION: Desirable: Less than 200 MG/DL Borderline-High Risk: 200-239 MG/DL High-Risk: 240 MG/DL and over 56 HDL INTERPRETATION: Undesirable: High Risk: Less than 40 MG/DL Desirable: Low Risk: Greater than 60 MG/DL 57 LDL INTERPRETATION: Low Risk Optimal Level: LDL Less than 100 MG/DL Near or Above Optimal: LDL 100-129 MG/DL Borderline High Risk: LDL 130-159 MG/DL High Risk: LDL 160-189 MG/DL Very High Risk: LDL Greater than 189 MG/DL 58 Anion gap measurement may be of limited value in the presence of any alkalosis, especially in a combined acid base disorder. . 59 Because ethnic data is not always readily available, this report includes an eGFR for both -Americans and non- Americans. The National Kidney Disease Education Program (NKDEP) does not endorse the use of the MDRD equation for patients that are not between the ages of 18 and 70, are , have extremes of body size, muscle mass, or nutritional status, or are non- or non-. According to the National Kidney Foundation, irrespective of diagnosis, the stage of the disease is based on the level of kidney function: Stage Description GFR(mL/min/1.73 m(2)) 1 Kidney damage with normal or decreased GFR 90 2 Kidney damage with mild decrease in GFR 60-89 3 Moderate decrease in GFR 30-59 4 Severe decrease in GFR 15-29 5 Kidney failure <15 (or dialysis) 60 Anion gap measurement may be of limited value in the presence of any alkalosis, especially in a combined acid base disorder. . 61 Because ethnic data is not always readily available, this report includes an eGFR for both -Americans and non- Americans. The National Kidney Disease Education Program (NKDEP) does not endorse the use of the MDRD equation for patients that are not between the ages of 18 and 70, are , have extremes of body size, muscle mass, or nutritional status, or are non- or non-. According to the National Kidney Foundation, irrespective of diagnosis, the stage of the disease is based on the level of kidney function: Stage Description GFR(mL/min/1.73 m(2)) 1 Kidney damage with normal or decreased GFR 90 2 Kidney damage with mild decrease in GFR 60-89 3 Moderate decrease in GFR 30-59 4 Severe decrease in GFR 15-29 5 Kidney failure <15 (or dialysis) 62 NO MRSA ISOLATED 63 PT TAKES AN ASPRIN 64 Lymphopenia % 65 Recommended INR for Patients on Oral Anticoagulants Prophylaxis 2.0 - 3.0 Treatment of thrombosis 2.0 - 3.0 Prevention of embolism 2.0 - 3.0 Prevention of embolism from prosthetic heart valves 2.5 - 3.5 66 DIAGNOSIS,TREATMENT,AND THERAPY MUST BE BASED ON THE INR VALUE ALONE. 67 Anion gap measurement may be of limited value in the presence of any alkalosis, especially in a combined acid base disorder. . 68 Because ethnic data is not always readily available, this report includes an eGFR for both -Americans and non- Americans. The National Kidney Disease Education Program (NKDEP) does not endorse the use of the MDRD equation for patients that are not between the ages of 18 and 70, are , have extremes of body size, muscle mass, or nutritional status, or are non- or non-. According to the National Kidney Foundation, irrespective of diagnosis, the stage of the disease is based on the level of kidney function: Stage Description GFR(mL/min/1.73 m(2)) 1 Kidney damage with normal or decreased GFR 90 2 Kidney damage with mild decrease in GFR 60-89 3 Moderate decrease in GFR 30-59 4 Severe decrease in GFR 15-29 5 Kidney failure <15 (or dialysis) 69 SDS 08/06 70 Anion gap measurement may be of limited value in the presence of any alkalosis, especially in a combined acid base disorder. . 71 Note change in reference range as of 06/11/08. The change was based on recommendations from the [place] [employer]. 72 Please note change in reference range effective 08 . Procedures Date CPT Code Description Status 10/02/2017 36772 Left Heart Cath. Incl S/I Coronaries, Angio S/I V Gram Completed If Done 09/25/2017 88531 Treadmill Interp/Report Only Completed 09/25/2017 06073 Stress Test Supervsn W/Out I/R Completed 09/18/201720666 Injection Single Tendon Origin/Insertion Completed 09/18/201766798 Inject Tendon Sheath Or Ligament Aponeurosis Eg Plantar Completed Fascia 09/05/2017 60918 EKG Tracing & Interpretation Completed 08/14/201731475 Inject Tendon Sheath Or Ligament Aponeurosis Eg Plantar Completed Fascia 08/14/201713679 Inject Tendon Sheath Or Ligament Aponeurosis Eg Plantar Completed Fascia 09/26/2016 33177 Nerve Conduction 03-04 Studies Completed 09/04/2016 33800 EKG Tracing & Interpretation Completed 06/22/2016 51550 Treadmill Interp/Report Only Completed 06/22/2016 41479 Stress Test Supervsn W/Out I/R Completed 06/22/2016 29682 EKG, Interpretation Only Completed 05/15/2016 79276 ECHO Transthorasic Realtime 2D W Doppler & Color Completed [facility] 07/14/2015 35162 EKG Tracing & Interpretation Completed 03/19/2015 83038 Inject/Drain Joint/Bursa Major Completed 12/25/2014 83765 Inject/Drain Joint/Bursa Small Completed 10/28/2014 06158 EKG Tracing & Interpretation Completed 10/27/201437517 Inject/Drain Joint/Bursa Major Completed 09/23/2014 30699 Rad Shoulder Comp, Min. 2 Views Completed 11/21/2013 81714 Left Heart Cath. Incl S/I Coronaries, Angio S/I V Gram Completed If Done 11/13/2013 46932 Treadmill Interp/Report Only Completed 11/13/2013 72906 Stress Test Supervsn W/Out I/R Completed 11/04/2013 24627 EKG Tracing & Interpretation Completed 09/24/2013 26300 ECHO Transthorasic Realtime 2D W Doppler & Color Completed [facility] 09/24/2013 48955 EKG, Interpretation Only Completed 09/23/2013 70668 IV Rx Trancath Therapy(Nitro/Arcenio) Completed 09/23/2013 97864 Percutaneous Transcatheter Placement Of Intracoronary Completed Stent 09/23/2013 97457 Ptca W/Intracor Stent Completed 09/23/2013 37900 EKG, Interpretation Only Completed 09/23/2013 77887 Cath PLMT&NJX L Ventriculog Img S&I Completed 09/23/2013 10300 Left Heart Cath. Incl S/I Coronaries, Angio S/I V Gram Completed If Done 05/23/201222078 Inject/Drain Joint/Bursa Major Completed 03/05/2012 40063 Treadmill Interp/Report Only Completed 03/05/2012 43292 Stress Test Supervsn W/Out I/R Completed 02/26/2012 07841 EKG Tracing & Interpretation Completed 09/27/2011 37751 EKG Tracing & Interpretation Completed 09/21/2011 38007 Rad Shoulder Comp, Min. 2 Views Completed 09/21/201132268 Inject/Drain Joint/Bursa Intermediate Completed 02/16/2011 44883 EKG Tracing & Interpretation Completed 02/04/2011 45457 EKG, Interpretation Only Completed 02/02/2011 21423 Ptca W/Intracor Stent Completed 02/02/2011 36230 EKG, Interpretation Only Completed 02/02/2011 38420 ECHO Transthorasic Realtime 2D W Doppler & Color Completed [facility] 02/02/2011 92765 Pulse Wave/Continuous-Interp.RPT Completed 02/02/2011 58168 Color Flow Doppler/Interp & Reprt Completed 02/02/2011 23730 Left Heart Cath. Incl S/I Coronaries, Angio S/I V Gram Completed If Done 01/30/2011 48091 EKG Tracing & Interpretation Completed 08/06/2008 11981 Endoscopy Wrist Surg W/Release Of Transverse Carpal Completed Ligament 08/06/2008 92029 Endoscopy Wrist Surg W/Release Of Transverse Carpal Completed Ligament 06/23/2005 87197 ECHO/Stress Completed 06/23/2005 28096 Stress Test Completed 06/22/2005 39357 EKG Tracing & Interpretation Completed Encounters Type Date Location Provider CPT E/M Dx Office Visit 09/26/2017 [facility] Jimmie Malone M.D., 04904 R10.13 3:40p Imaging Services Director At [facility], FSCAI R94.39 Office Visit 09/18/2017 2:15p [facility] [place] [address] M65.311 C.M.A. M65.351 M77.12 Office Visit 09/05/2017 10:40a [facility] Jimmie Malone M.D., 29480 E78.5 Imaging Services Director At [facility], [facility] I10 I25.10 R10.13 Office Visit 08/14/2017 1:15p [facility] [place] [address] M65.311 C.M.A. M65.321 M65.351 G56.01 Office Visit 01/09/2017 11:45a [facility] Andreia Finn, 11752 R47.1 Services Of Matthew Gutiérrez R29.810 Office Visit 12/14/2016 9:45a [facility] Andreia Mckeon 05811 R29.810 Services Of Matthew Finn M.D. Office Visit 12/11/2016 3:30p [facility] Augusto Brianliam, 65128 R29.810 Brock R47.1 Office Visit 09/04/2016 9:40a [facility] Jimmie Malone M.D., 21914 I25.10 Imaging Services Director At [facility], [facility] I10 E78.5 Office Visit 08/10/2016 3:00p [facility] Andreia Finn, 61409 G25.0 Services Of Matthew Gutiérrez R20.0 Office Visit 06/22/2016 12:19p [facility] Jimmie Malone M.D., 58153 R07.9 Imaging Services Director At [facility], [facility] I25.10 Office Visit 06/21/2016 12:18p [facility] Jimmie Malone M.D., 65203 R07.9 Imaging Services Director At [facility], [facility] I25.10 Office Visit 12/02/2015 9:00a [facility] Andreia Finn, 90130 R51 Services Of Matthew Gutiérrez G25.0 I67.9 Office Visit 07/14/2015 4:00p [facility] Matthew Malone M.D., 79150 I10 At [facility], [facility] I25.9 E78.5 Office Visit 04/21/2015 10:30a [facility] [place] 49527 333.1 Rivka Veras M.D. Office Visit 03/26/2015 10:30a [facility] Andreia Finn, 83166 784.0 Brock 333.1 Office Visit 12/25/2014 9:45a [facility] Norberto Roy, 49495 719.41 Rivka Gutiérrez 729.5 715.34 Office Visit 10/28/2014 2:40p [facility] Jimmie Malone M.D., 40685 401.1 Imaging Services Director At [facility], [facility] 414.9 272.4 Office Visit 10/27/2014 3:30p [facility] Roy, 90049 719.41 C.M.A. MJaja 726.2 Office Visit 09/23/2014 9:00a [facility] Roy, 76462 719.41 C.M.A. MJaja Office Visit 08/27/2014 12:30p [facility] Andreia Finn, 25205 784.0 Services Of Imaging Services Director M.D. 333.1 437.9 Office Visit 05/19/2014 3:15p [facility] Andreia Finn, 92145 784.0 Services Of Imaging Services Director M.DPaul 333.1 Office Visit 01/02/2014 2:30p [facility] Jimmie Malone M.D., 14429 414.9 Imaging Services Director At [facility] 401.1 272.4 Office Visit 11/28/2013 3:00p [facility] Jimmie Malone M.D., 18383 401.1 Imaging Services Director At [facility] 272.4 414.9 Office Visit 11/04/2013 2:00p [facility] Jacqueline Garg, 54165 786.50 [facility] D.OPaul 414.01 401.1 250.00 530.81 272.4 Office Visit 10/27/2013 11:00a [facility] Jacqueline Garg D.O. 67797 414.01 401.1 250.00 530.81 272.4 Office Visit 09/27/2013 4:00p [facility], Oliverio Scott M.D. 22745 786.50 Hospitalists 414.01 530.81 401.9 Office Visit 09/26/2013 10:37a [facility] Jacqueline Garg D.O. 11584 786.50 414.01 250.00 401.1 Office Visit 09/26/2013 3:59p [facility], Oliverio Scott M.D. 05789 786.50 Hospitalists 414.01 530.81 401.9 Office Visit 09/24/2013 3:13p [facility] Jacqueline Garg D.O. 77255 411.1 414.01 401.1 250.00 Office Visit 09/23/2013 9:30a [facility] Jacqueline Garg D.O. 00514 411.1 414.01 401.1 250.00 Office Visit 09/15/2013 1:20p [facility] Jacqueline Garg D.O. 68963 413.0 414.01 401.1 272.4 250.90 Office Visit 04/17/2013 2:40p [facility] Jacqueline Forest, 52025 414.01 [facility] D.OPaul 401.1 272.4 250.90 278.00 Office Visit 10/30/2012 2:20p [facility] Jacqueline Garg D.O. 42218 414.01 401.1 272.4 250.90 278.00 Office Visit 07/26/2012 8:30a [facility] Andreia Finn, 16980 784.0 Services Of Matthew Gutiérrez 354.0 Office Visit 07/07/2012 9:45a [facility],[place] [address] 530.81 Hospitalists 414.02 250.90 Office Visit 07/06/2012 9:45a [facility],[place] [address] 786.51 Hospitalists 414.02 530.81 250.90 Office Visit 06/04/2012 2:30p [facility] Brianda Adair, 69698 414.01 [facility] 272.4 401.1 Office Visit 05/23/2012 10:15a [facility] Roy M.D. 06148 726.2 C.MPaulAPaul 715.11 Office Visit 02/26/2012 11:00a [facility] Jacqueline Garg D.O. 89565 786.50 414.01 401.1 272.4 250.00 Office Visit 10/18/2011 8:45a [facility] Roy 74976 716.91 C.M.APaul Gutiérrez 726.2 Office Visit 09/27/2011 10:20a [facility] Jacqueline Garg D.O. 99040 414.01 401.1 272.4 250.00 278.00 Office Visit 09/21/2011 2:15p [facility] Roy 51189 716.91 C.Megan Gutiérrez 726.2 Office Visit 05/01/2011 2:20p [facility] Jacqueline Garg D.O. 24273 414.01 401.1 272.4 250.00 278.00 Office Visit 02/16/2011 8:30a [facility] Jacqueline Garg D.O. 82671 414.01 250.62 401.1 272.4 Office Visit 02/05/2011 8:49a [facility] Stacia Rico, 83824 794.31 MJaja 414.01 401.1 786.50 V45.82 Office Visit 02/03/2011 8:44a [facility] Jacqueline Garg D.O. 40371 414.01 V45.82 786.50 Office Visit 02/02/2011 9:30a [facility] Jacqueline Garg D.O. 16376 414.01 v45.82 786.50 Office Visit 01/30/2011 10:20a [facility] Jacqueline Garg D.O. 17264 411.1 250.00 401.1 278.01 Office Visit 07/28/2008 1:00p [facility] Russ Rogers, 80759 354.0 Of Matthew Gutiérrez Office Visit 05/25/2008 3:30p [facility] Russ Rogers, 43736 354.0 Of Matthew Gutiérrez Office Visit 06/22/2005 3:20p [facility] Terrence Zambrano 32022 786.50 Brock Ruiz 401.1 272.0 278.01 Plan of Care 10/08/2017 - Jimmie Malone M.D., [facility], IGMWQG29.5 Hyperlipidemia, unspecifiedComments:We need to check your cholesterol on medication.Recommendations:We will give you a prescription to get your cholesterol checked in late October 2017.I25.10 Athscl heart disease of [place] coronary artery w/o ang pctrsNew Orders:Blood Pressure CheckComments:You currently do not have any significant symptoms of progressive coronary artery disease.Follow up:3 monthsRecommendations:We will increase the metoprolol to 50 mg twice a day.
--- OUTSIDE RECORDS SUMMARY | 2017-10-26 11:09 | XMS REPORT ---
:1950 External Reference #:[id number] Author Organization [facility] Address [address] [address] Phone [phone] Care Team Providers Name Role Phone Emmanuel David NP Primary Care Physician Unavailable Payers Type Date Identification Numbers Payment Provider Subscriber Commercial Effective: Policy Number: [id number] BS Facets Charo Josse 2012 PayID: [id number] [address] [address] [place] [id number] Medigap Part B Effective: 2009 Policy Number: BS Of ARANZA Mancilla Josse [id number] Expires: 2012 PayID: [id number] [address] [address] [place] [id number] Problems Date Description Provider Status Onset: 09/27/2011 Coronary arteriosclerosis Jacqueline Garg D.O. Active Onset: 02/26/2012 Chest pain Jacqueline Garg D.O. Active Onset: 06/04/2012 Hyperlipidemia Brianda Butcher N.PPaul Active Onset: 06/04/2012 Benign essential hypertension Brianda Butcher, N.PPaul Active Onset: 10/30/2012 Coronary arteriosclerosis Jacqueline Garg D.O. Active Onset: 09/15/2013 Angina decubitus Jacqueline Garg D.O. Active Onset: 11/28/2013 Essential hypertension Jimmie Malone M.D., [facility], Active [facility] Onset: 11/28/2013 Chronic ischemic heart disease Jimmie Malone M.D., [facility], Active [facility] Onset: 11/28/2013 Radiation injury Jimmie Malone M.D., [facility], Active [facility] Onset: 03/26/2015 Tremor Andreia Finn M.D. Active Onset: 03/26/2015 Headache Andreia Finn M.D. Active Onset: 07/14/2015 Essential hypertension Jimmie Malone M.D., [facility], Active [facility] Onset: 07/14/2015 Chronic ischemic heart disease, Jimmie Malone M.D., [facility], Active unspecified [facility] Onset: 08/10/2016 Carpal tunnel syndrome of right Andreia Finn M.D. Active wrist Onset: 12/14/2016 Facial palsy Andreia Finn M.D. 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 twice a day prn Metoprolol 07/14 Active Tablets ER 50mg 135ta 1 by mouth Jimmie Succinate ER 24HR bs in in the [facility] [place] morning M.DPaul, 10/23 apill [facility], [facility] night Isosorbide 10/28 Active Tablets ER 120mg 90tab 1 by mouth Jimmie Mononitrate ER 24HR s every day Brock Malone, [facility] Azmacort 04/17 Active Aerosol 75mcg/Act 3Mon 1 puff bid prn Ordering Provider Proair HFA 04/17 Active Aerosol 108(90Bas 1unit 2 puffs po e) s q4h prn Ordering mcg/Act Provider Oxygen Active 2Liters/M qhs Unknown /0000 in Metformin HCL Active Tablets 1000mg 1/2 tablet Unknown /0000 twice daily (500 mg twice daily) Triamcinolone Active Ointment 0.05% 15gm apply to Unknown Acetonide In affected Absorbase area sparingly daily Lantus Active Solution 100Unit/M 48 units Unknown /0000 L qpm Multiple Vitamins Active Tablets 1 po qd Unknown /0000 Iron Active Tablets 325(65Fe) 1 by mouth Unknown /0000 mg every day Oxycodone HCL Active Tablets 10mg as needed Unknown / for pain Spiriva Active Capsules 18mcg 1 unit Unknown Handihaler /0000 inhalation daily Gabapentin Active Capsules 300mg 1 am 1 Unknown /0000 noon 1 evening 1 hs Omeprazole Active Capsules 40mg 1 po qd` Unknown /0000 DR Aspir-[address] 81mg 1 by mouth Unknown /0000 every day Vitamin D High Active Capsules 1000Unit 1 by mouth Unknown Potency /0000 every day Alprazolam Active Tablets 0.5mg Unknown / Nitroglycerin Active Tablets 0.4mg 1 sl Unknown /0000 Sub q5mins x3 as needed for chest pain Valium 12/14 Hx Tablets 5[facility]tabs 1 [facility] - to [facility] M.D. 07/25 Clopidogrel 10/27 Hx Tablets 75mg 90tab 1 po qd Jimmie [facility] s Antoine Malone M.D., 03/22 [facility] Douglas 09/23 Hx Tablets 5-325mg 20tab 1-2 by s mouth alexis Roy, - as needed M.D. 07/13 Nortriptyline HCL 05/21 Hx Capsules 10mg 120ca 3 po [facility] Antoine Gutierrez M.D. 03/22 Valium 05/19 Hx Tablets 5mg 2tabs 1 - 2 tabs 333.1 by mouth Manuela, - prior to M.D. 03/22 Imdur 01/02 Hx Tablets ER 60mg 150ta 1 1 po 24HR bs Antoine Welch M.D., 10/28 [facility] Diltiazem HCL ER 11/28 Hx Caps ER 120mg 180ca 1 cap by 24HR ps jonny Malone - twice a M.DPaul, [facility] Imdur 11/24 Hx Tablets ER 60mg 30tab 1 po qd 24HR Antoine Ernandez M.D., 01/02 [facility] Imdur 11/13 Hx Tablets ER 30mg 30tab 1 po qd 24HR Antoine StallworthOPaul 11/24 Diltiazem CD 10/27 Hx Caps ER 120mg 30cap 1 po qd 24HR s Ordering - Provider 11/28 Aspirin 09/23 Hx Tablets 81mg 100ta 1 po qd Antoine SinghOPaul 07/25 Plavix 09/23 Hx Tablets 75mg 30tab 1 po qd s Antoine Garg D.O. 10/27 Omeprazole 09/15 Hx Capsules 20mg 90cap [address] georges Ordering - Provider 11/04 Ranitidine HCL 09/15 Hx Capsules 150mg 60cap 1 po bid Other s Ordering - Provider 10/27 Imdur 09/15 Hx Tablets ER 60mg 30tab 1 po daily 24HR s Antoine Garg.OPaul 11/04 Metoprolol 03/06 Hx Tablets ER 50mg 45tab take one Jimmie Succinate ER 24HR s tablet by Antoine Malone M.D., 07/14 every [facility] morning [facility] Atorvastatin 02/25 Hx Tablets 40mg 30tab take one Jimmie Calcium s tablet by Antoine Malone M.D., 09/03 every day [facility] Toprol XL 02/23 Hx Tablets ER 50mg 30tab 1 po qd 24HR s Antoine GargOPaul 09/15 Metoprolol 02/16 Hx Tablets 50mg 60tab 1 po qd Tar s Antoine Garg.OPaul 02/23 Simvastatin 02/16 Hx Tablets 40mg 30tab Take One s Tablet By Forest - Mouth D.O. 02/25 Evening Plavix 02/16 Hx Tablets 75mg 30tab Take One s Tablet By Forest - Mouth D.O. 04/17 Nitrostat 02/16 Hx Tablets 0.4mg 25tab place 1 Sub s tablet Antoine Malone the M.DPaul, 09/25 tongue [facility] every 5 [facility] minutes up to 3 doses as needed [...] Tablets 1gm 120ta 1 po qid Unknown / bs prn - 01/30 Omeprazole Hx Capsules 40mg 30cap 1 po bid Unknown /0000 s - 02/16 Glipizide ER Hx Tablets ER 10mg 90tab bid Unknown / 24HR s - 02/25 Byetta Hx Solution [...] s po q8h prn - 01/30 Chlorthalidone / Hx Tablets 25mg 45tab 1 po qd Unknown /0000 s - 09/15 Amitriptyline HCL Hx Tablets 10mg 30tab 1/2 po qd Unknown /0000 s - 09/27 Protonix 00/[address] 40mg 100ta 1 po qd Unknown /0000 bs - 04/17 Novolog Penfill Hx Solution 100Unit/M 10-20 Unknown /0000 L units - before 09/03 (depending on sugar), 45 units @ noon, and 30 units before supper daily. Fish Oil 00/00 Hx 1 qd Unknown /0000 - 11/04 Zantac /00 Hx Capsules 150mg 1 po qd Unknown /0000 - 09/15 Protonix 00/[address] 40mg 30tab 1 po qd Unknown /0000 s - 09/25 Calcitriol Hx Capsules 0.25mcg 90cap 1 po qd Unknown /0000 s - 09/03 Vitamin D 400 Hx qd Unknown /0000 - 03/22 Topiramate Hx Tablets 25mg 120ta 1 tab po q Unknown /0000 bs evening - 10/27 Hydrochlorothiazi Hx Tablets 25mg 1 by mouth Unknown de /0000 every day - 01/02 Morphine Sulfate 00 Hx Caps ER 30mg 1 by mouth Unknown ER /0000 24HR bid prn - 09/03 Gabapentin Hx Tablets 600mg bid Unknown /0000 - 09/25 Flexeril Hx Tablets 10mg as needed Unknown /0000 - 07/25 Zofran Hx Tablets 4mg 1 tab by Unknown /0000 mouth - every 6 10/04 hours needed nausea Valtrex Hx Tablets 500mg take 1 Unknown /0000 tablet by - mouth 12/14 twice day as needed Chemo Therapy 00/ Hx Unknown /0000 - 09/25 Lasix Hx Tablets 20mg 1 by mouth Unknown /0000 every day - 09/03 Colace Hx Capsules 100mg 2 po daily Unknown /0000 prn - 07/25 Humalog Hx Solution 100Unit/M as Unknown /0000 Cartridge L directed - 09/25 Losartan 00 Hx Tablets 50mg 1 by mouth Unknown Potassium /0000 every day - 07/23 Revlimid Hx Capsules 10mg on for 21 Unknown /0000 days then - off for 7 Novolog Mix 70/30 00/00 Hx Supn (70-30)10 as Unknown Prefilled Flexpen /0000 0Unit/ML directed` - 12/14 Nitroglycerin 00/ Hx Tablets 0.4mg 1 spray Unknown /0000 Sub with chest - pain,march 02 every 5 mts x max 3 times. if chestpain continues go to er Diltiazem CD 00 Hx Caps ER 120mg 1 by mouth Unknown /0000 24HR every day - 09/25 Influenza Virus Active Injection Andreia Mckeon Vaccine /0000 Stackman, M.D. Celestone 3 mg 00/00 Active Injection Jericho and 3mg /0000 MD Carmenza Celestone 3 mg 0000 Active Injection Jericho and 3mg /0000 MD Elina Herrestone 3 mg 0000 Active Injection Jericho and 3mg /0000 MD Carmenza Medications Administered in Office Medication Date Status [...] Roy Vital Signs Date Vital Result Comment 09/26/2017 Height 65 inches 5'5" Weight 248.00 [...] Test Date Test Result H/L Range Note Laboratory test finding 09/06/2017 Alt (SGPT) 14 U/L 7-52 Ast (Sgot) 15 U/L 13-39 Lipid Profile (Trig/Chol/HDL) 09/06/2017 Triglycerides 190 mg/dL 1 Cholesterol 233 mg/dL 2 HDL Cholesterol 33.2 mg/dL 3 LDL Cholesterol 162 mg/dL 4 Basic Metabolic Panel 09/06/2017 Sodium 137 mmol/L 133-145 Potassium 4.2 mmol/L 3.5-5.0 Chloride 102 mmol/L 101-111 Co2 Carbon Dioxide 30 mmol/L 22-32 Anion Gap 5 mmol/L 2-11 Glucose 171 mg/dL High 70-100 Blood Urea Nitrogen 27 mg/dL High 6-24 Creatinine 1.54 mg/dL High 0.67-1.17 BUN/Creatinine Ratio 17.5 8-20 Calcium 9.5 mg/dL 8.6-10.3 Egfr Non- 45.3 >60 Egfr 58.2 >60 5 Laboratory test finding 09/06/2017 Alt 14 U/L 7-52 Ast (Sgot) 15 U/L 13-39 Lipid Profile (Trig/Chol/HDL) 09/06/2017 Triglycerides 190 mg/dL 6 Cholesterol 233 mg/dL 7 HDL Cholesterol 33.2 mg/dL 8 LDL Cholesterol 162 mg/dL 9 Basic Metabolic Panel 09/06/2017 Sodium 137 mmol/L 133-145 Potassium 4.2 mmol/L 3.5-5.0 Chloride 102 mmol/L 101-111 Co2 Carbon Dioxide 30 mmol/L 22-32 Anion Gap 5 mmol/L 2-11 Glucose 171 mg/dL High 70-100 Blood Urea Nitrogen 27 mg/dL High 6-24 Creatinine 1.54 mg/dL High 0.67-1.17 BUN/Creatinine Ratio 17.5 8-20 Calcium 9.5 mg/dL 8.6-10.3 Egfr Non- 45.3 >60 Egfr 58.2 >60 10 Basic Metabolic Panel 12/14/2016 Sodium 133 mmol/L 133-145 Potassium 4.1 mmol/L 3.5-5.0 Chloride 100 mmol/L Low 101-111 Co2 Carbon Dioxide 27 mmol/L 22-32 Anion Gap 6 mmol/L 2-11 Glucose 207 mg/dL High 70-100 Blood Urea Nitrogen 20 mg/dL 6-24 Creatinine 2.01 mg/dL High 0.67-1.17 BUN/Creatinine Ratio 10.0 8-20 Calcium 9.4 mg/dL 8.6-10.3 Egfr Non- 33.4 >60 Egfr 43.0 >60 11 Laboratory test finding 09/06/2016 Alt (SGPT) 15 U/L 7-52 12 Ast (Sgot) 11 U/L Low 13-39 13 Lipid Profile (Trig/Chol/HDL) 09/06/2016 Triglycerides 116 mg/dL 14 Cholesterol 135 mg/dL 15 HDL Cholesterol 27.9 mg/dL 16 LDL Cholesterol 84 mg/dL 17 Comp Metabolic Panel 03/28/2016 Sodium 136 mmol/L [...] Egfr Non- 53.5 >60 Egfr 68.8 >60 18 Laboratory test finding 03/28/2016 Magnesium 1.7 mg/dL [...] Lipid Profile (Trig/Chol/HDL) 11/04/2014 Triglycerides 86 mg/dL 19, 20 Cholesterol 108 mg/dL 19, 21 HDL Cholesterol 37.0 mg/dL 19, 22 LDL Cholesterol 54 mg/dL 19, 23 Laboratory test finding 11/04/2014 Alt 49 U/L 7-52 19, 24 Ast 25 U/L 13-39 19, 25 Laboratory test finding 05/21/2014 Erythrocyte Sed Rate [...] Egfr Non- 51.2 >60 Egfr 65.8 >60 26 Basic Metabolic Panel 11/19/2013 Sodium 132 mmol/L Low 133-145 Potassium 4.1 mmol/L 3.5-5.0 Chloride 101 mmol/L 101-111 Co2 Carbon Dioxide 27.0 mmol/L 22-32 Anion Gap 4.0 mmol/L 2-11 Glucose 192 mg/dL High 70-100 Blood Urea Nitrogen 21 mg/dL 6-24 Creatinine 1.50 mg/dL High 0.50-1.40 BUN/Creatinine Ratio 14.0 8-20 Calcium 8.6 mg/dL 8.1-9.9 Egfr Non- 47.3 >60 Egfr 60.8 >60 27 CBC No Diff 11/19/2013 White Blood Count [...] Egfr Non- 47.3 >60 Egfr 60.8 >60 28 Basic Metabolic Panel 09/17/2013 Sodium 133 mmol/L 133-145 Potassium 4.6 mmol/L 3.5-5.0 Chloride 101 mmol/L 101-111 Co2 Carbon Dioxide 28.0 mmol/L 22-32 Anion Gap 4.0 mmol/L 2-11 Glucose 136 mg/dL High 70-100 Blood Urea Nitrogen 17 mg/dL 6-24 Creatinine 1.40 mg/dL 0.50-1.40 BUN/Creatinine Ratio 12.1 8-20 Calcium 8.9 mg/dL 8.1-9.9 Egfr Non- 51.2 >60 Egfr 65.8 >60 29 CBC Auto Diff 09/17/2013 White Blood Count [...] % 0 Inr/Protime 09/17/2013 Inr 0.90 0.85-1.06 30 Cell Morphology 09/17/2013 Microcytosis 1+ Hypochromasia 1+ Basophilic Stippling 1+ Lipid Profile (Trig/Chol/HDL) 04/03/2013 Triglycerides 109 mg/dL 40-200 Cholesterol 111 mg/dL Less than 200 HDL Cholesterol 35 mg/dL Low 40-60 31 Cholesterol/HDL Ratio 3.2 Average 1-4.44 LDL Cholesterol 54.2 Less Than 100 32 Laboratory test finding 04/03/2013 Alt 29 U/L 14-54 33 Ast 21 U/L 12-42 34 Lipid Profile (Trig/Chol/HDL) 10/23/2012 Triglycerides 128 mg/dL 40-200 Cholesterol 93 mg/dL Low Less than 200 HDL Cholesterol 24 mg/dL Low 40-60 35 Cholesterol/HDL Ratio 3.9 Average 1-4.44 LDL Cholesterol 43.4 mg/dL Less Than 100 36 Urine Culture & 07/06/2012 M <SEE 37 Sensitivi NOTE> Lipid Profile 06/04/2012 Triglyceride 141 mg/dL 40-200 19 (Trig/Chol/HDL) Cholesterol 115 mg/dL Less Than 200 19, 38 High Density Lipoprotein 34 mg/dL Low 40-60 19, 39 Cholesterol/HDL Ratio 3.38 AVERAGE 1-4.97 19 Low Density Lipoprotein 53 mg/dL Less Than 100 19, 40 Laboratory test finding 06/04/2012 Ast (Sgot) 28 U/L 12-42 19 Alt (SGPT) 41 U/L 17-63 19 Lipid Profile (Trig/Chol/HDL) 02/21/2012 Triglyceride 134 mg/dL 40-200 Cholesterol 124 mg/dL Less Than 200 41 High Density Lipoprotein 29 mg/dL Low 40-60 42 Cholesterol/HDL Ratio 4.28 AVERAGE 1-4.97 Low Density Lipoprotein 68 mg/dL Less Than 100 43 Laboratory test finding 02/21/2012 Alt (SGPT) 35 U/L 17-63 Ast (Sgot) 29 U/L 12-42 Lipid Profile (Trig/Chol/HDL) 09/07/2011 Triglyceride 162 mg/dL 40-200 Cholesterol 123 mg/dL Less Than 200 44 High Density Lipoprotein 31 mg/dL Low 40-60 45 Cholesterol/HDL Ratio 3.97 AVERAGE 1-4.97 Low Density Lipoprotein 60 mg/dL Less Than 100 46 Liver Function Panel 09/07/2011 Total Protein 7.3 GM/DL 6.2-8.1 Albumin 3.8 GM/DL 3.2-5.2 Globulin 3.5 GM/DL 2-4 Albumin/Globulin Ratio 1.1 1-3 Bilirubin Total 0.6 mg/dL 0.4-1.5 47 Bilirubin Direct 0.1 mg/dL 0.1-0.5 Indirect Bilirubin 0.5 mg/dL 0.3-1.0 48 Alkaline Phosphatase 72 U/L 39-117 Alt (SGPT) 36 U/L 17-63 Ast (Sgot) 25 U/L 12- Liver Function Panel 03/13/2011 Total Protein 6.9 GM/DL 6.2-8.1 Albumin 3.6 GM/DL 3.2-5.2 Globulin 3.3 GM/DL 2-4 Albumin/Globulin Ratio 1.1 1-3 Bilirubin Total 0.8 mg/dL 0.4-1.5 49 Bilirubin Direct 0.1 mg/dL 0.1-0.5 Indirect Bilirubin 0.7 mg/dL 0.3-1.0 50 Alkaline Phosphatase 64 U/L 39-117 Alt (SGPT) 34 U/L 17-63 Ast (Sgot) 25 U/L Lipid Profile (Trig/Chol/HDL) 03/13/2011 Triglyceride 151 mg/dL 40-200 Cholesterol 110 mg/dL Less Than 200 51 High Density Lipoprotein 29 mg/dL Low 40-60 52 Cholesterol/HDL Ratio 3.79 AVERAGE 1-4.97 Low Density Lipoprotein 51 mg/dL Less Than 100 53 Basic Metabolic Panel 02/13/2011 Sodium 132 mmol/L Low 135-145 Potassium 4.6 mmol/L 3.5-5.0 Chloride 97 mmol/L Low 101-111 Co2 (Carbon Dioxide) 29.0 mmol/L 22-32 Anion Gap 6.0 mmol/L 2-11 54 Glucose 186 mg/dL High 70-100 BUN 17 mg/dL 6-24 Creatinine 1.30 mg/dL 0.50-1.40 One Over Creatinine 0.70 BUN/Creatinine Ratio 13.1 8-20 Calcium 9.4 mg/dL 8.1-9.9 eGFR Non- 56.3 > 60 eGFR 72.4 > 60 55 Basic Metabolic Panel 02/06/2011 Sodium 134 mmol/L Low 135-145 19 Potassium 4.3 mmol/L 3.5-5.0 19 Chloride 95 mmol/L Low 101-111 19 Co2 (Carbon Dioxide) 28.0 mmol/L 22-32 19 Anion Gap 11.0 mmol/L 2-11 19, 56 Glucose 179 mg/dL High 70-100 19 BUN 26 mg/dL High 6-24 19 Creatinine 1.40 mg/dL 0.50-1.40 19 One Over Creatinine 0.70 19 BUN/Creatinine Ratio 18.6 8-20 19 Calcium 9.6 mg/dL 8.1-9.9 19 eGFR Non- 51.7 > 60 19 eGFR 66.5 > 60 19, 57 MRSA/Vre Screen 02/02/2011 MRSA/Vre Culture [facility] 58 Basic Metabolic Panel 01/30/2011 Sodium 134 mmol/L Low 135-145 59 Potassium 4.0 mmol/L 3.5-5.0 59 Chloride 101 mmol/L 101-111 59 Co2 (Carbon Dioxide) 25.0 mmol/L 22-32 59 Anion Gap 8.0 mmol/L 2-11 59, 60 Glucose 247 mg/dL High 70-100 59 BUN 19 mg/dL 6-24 59 Creatinine 1.20 mg/dL 0.50-1.40 59 One Over Creatinine 0.80 59 BUN/Creatinine Ratio 15.8 8-20 59 Calcium 9.5 mg/dL 8.1-9.9 59 eGFR Non- 61.8 > 60 59 eGFR 79.4 > 60 59, 61 CBC Auto Diff 01/30/2011 White Blood Count 8.2 CUMM 4.8-10.8 59 Red Cell Count 4.53 CUMM Low 4.6-6.2 59 Hemoglobin 13.4 g/dL Low 14.0-18.0 59 Hematocrit 40 % Low 42-52 59 Mean Corpuscular Volume 88 um3 80-94 59 Mean Corpuscular Hemoglob 30 pg 27-31 59 Mean Corpuscular HGB Cone 34 g/dL 32-36 59 Redcell Distribution WDTH 15 % 10.5-15 59 Platelet Count 267 CUMM 150-450 59 Mean Platelet Volume 8.0 um3 7.4-10.4 59 Gran % 70.7 % 38-83 59 Lymph % 19.9 % Low 25-47 59 Mononuclear % 5.7 % 1-9 59 Eosinophil % 3.3 % 0-6 59 Basophil % 0.4 % 0-2 59 Abs Lymphs 1.6 1.0-4.8 59 Abs Mononuclear 0.5 0-0.8 59 Absolute Neutrophil Count 5.8 1.5-7.7 59 Abs Eosinophils 0.3 0-0.6 59 Abs Basophils 0 0-0.2 59, 62 Protime 01/30/2011 Inr 0.94 0.82-1.17 59, 63 Protime 11.0 SEC 10.2-14.8 59, 64 Basic Metabolic Panel 07/31/2008 Sodium 133 mmol/L Low 135-145 65 Potassium 4.4 mmol/L 3.5-5.0 65 Chloride 96 mmol/L Low 101-111 65 Co2 (Carbon Dioxide) 30.0 mmol/L 22-32 65 Anion Gap 7.0 mmol/L 2-11 65, 66 Glucose 208 mg/dL High 70-100 65, 67 BUN 19 mg/dL 6-24 65 Creatinine 1.2 mg/dL 0.5-1.4 65 One Over Creatinine 0.83 65 BUN/Creatinine Ratio 15.8 8-20 65 Calcium 9.9 mg/dL 8.1-9.9 65, 68 CBC With Electronic Diff 07/31/2008 White Blood Count 7.8 CUMM 4.8-10.8 65 Red Cell Count 4.88 CUMM 4.6-6.2 65 Hemoglobin 14.8 g/dL 14.0-18.0 65 Hematocrit 43 % 42-52 65 Mean Corpuscular Volume 87 um3 80-94 65 Mean Corpuscular Hemoglob 30 pg 27-31 65 Mean Corpuscular HGB Cone 35 g/dL 32-36 65 Redcell Distribution WDTH 14 % 10.5-15 65 Platelet Count 307 CUMM 150-450 65 Mean Platelet Volume 7.2 um3 Low 7.4-10.4 65 Gran % 70.4 % 38-83 65 Lymph % 21.1 % 20-45 65 Mononuclear % 5.7 % 1-9 65 Eosinophil % 2.3 % 0-6 65 Basophil % 0.5 % 0-2 65 Abs Lymphs 1.7 1.0-4.8 65 Abs Mononuclear 0.4 0-0.8 65 Absolute Neutrophil Count 5.5 1.5-7.7 65 Abs Eosinophils 0.2 0-0.6 65 Abs Basophils 0 0-0.2 65 1 Desirable: <150 Borderline High: 150-199 High: 200-499 Very High: >500 2 Desirable: <200 Borderline High: 200-239 High: >239 3 Low: <40 Desirable: 40-60 High: >60 4 Desirable: <100 Near Optimal: 100-129 Borderline High: 130-159 High: 160-189 Very High: >189 5 Because ethnic data is not always readily [...] 15-29 5 Kidney failure <15 (or dialysis) 6 Desirable: <150 Borderline High: 150-199 High: 200-499 Very High: >500 7 Desirable: <200 Borderline High: 200-239 High: >239 8 Low: <40 Desirable: 40-60 High: >60 9 Desirable: <100 Near Optimal: 100-129 Borderline High: 130-159 High: 160-189 Very High: >189 10 Because ethnic data is not always readily [...] 15-29 5 Kidney failure <15 (or dialysis) 11 Because ethnic data is not always readily [...] 15-29 5 Kidney failure <15 (or dialysis) 12 FASTING Copy to ALTAF Platt, Dr. Malick Loya Copy Result to: EMMANUEL DAVID NP ([id number]) 13 FASTING Copy to ALTAF Platt, Dr. Malick Loya Copy Result to: EMMANUEL DAVID NP ([id number]) 14 Desirable <150 Borderline high 150-199 High 200-499 Very High >500 15 Desirable <200 Borderline high 200-239 High >239 16 Low <40 Desirable: 40-60 High: >60 17 Desirable: <100 mg/dL Near Optimal: 100-129 mg/dL Borderline High: 130-159 mg/dL High: 160-189 mg/dL Very High: >189 mg/dL 18 Because ethnic data is not always readily [...] 15-29 5 Kidney failure <15 (or dialysis) 19 FASTING 20 Desirable <150 Borderline high 150-199 High 200-499 Very High >500 21 Desirable <200 Borderline high 200-239 High >239 22 Low <40 Desirable: 40-60 High: >60 23 Desirable <100 Near Optimal 100-129 Borderline high 130-159 High 160-189 Very High >189 24 FASTING 25 FASTING 26 Because ethnic data is not always readily [...] 15-29 5 Kidney failure <15 (or dialysis) 27 Because ethnic data is not always readily [...] 15-29 5 Kidney failure <15 (or dialysis) 28 Because ethnic data is not always readily [...] 15-29 5 Kidney failure <15 (or dialysis) 29 Because ethnic data is not always readily [...] 15-29 5 Kidney failure <15 (or dialysis) 30 Please note the change in the INR reference range effective 13. 31 HDL Interpretation: Undesirable: High Risk: Less than 40 mg/dL Desirable: Low Risk: Greater than 60 mg/dL 32 LDL Interpretation: Low Risk Optimal Level: LDL Less than 100 mg/dL Near or Above Optimal: LDL 100-129 mg/dL Borderline High Risk: LDL 130-159 mg/dL High Risk: LDL 160-189 mg/dL Very High Risk: LDL Greater than 189 mg/dL 33 FASTING 34 FASTING 35 HDL Interpretation: Undesirable: High Risk: Less than 40 MG/DL Desirable: Low Risk: Greater than 60 MG/DL 36 LDL Interpretation: Low Risk Optimal Level: LDL Less than 100 MG/DL Near or Above Optimal: LDL 100-129 MG/DL Borderline High Risk: LDL 130-159 MG/DL High Risk: LDL 160-189 MG/DL Very High Risk: LDL Greater than 189 MG/DL 37 RUN DATE: 07/08/[address] [facility] NMI LIVE PAGE 1 RUN TIME: 944 Specimen Inquiry RUN USER: INTER[id number]: DIS Larry Re07/06/12 Age/Sex: 62/M Unit#: [id number] Location: : 50 SPEC #: [id number] ANTOINE: 07/06/12 STATUS: JADEN REQ #: [id number] RECD: 07/06/[address]: Sue SCOTT,Gaye Cobb SOURCE: URINE ENTR: 07/06/[address]: Enrico LOPES,Emmanuel Camarena [facility]: ORDERED: URINE C S QUERIES: SPECIMEN DESCRIPTION: URINE, RANDOM ACT WKST: UR 07/08/12 #1 Procedure Result Verified Site > URINE CULTURE SENSITIVI Final -0945 ML FINAL: NO GROWTH DAY 2 (<1,000 CFU/mL) ML - [facility] State Permit #[id number] [address] [place] [address] DEPARTMENT OF PATHOLOGY, [address] [place] [address] [facility] Permit #[id number] Lorenzo Lowry M.D. Director Camille Buenrostro M.D. Inside Sales Manager 38 CHOLESTEROL INTERPRETATION: Desirable: Less than 200 MG/DL Borderline-High Risk: 200-239 MG/DL High-Risk: 240 MG/DL and over 39 HDL INTERPRETATION: Undesirable: High Risk: Less than 40 MG/DL Desirable: Low Risk: Greater than 60 MG/DL 40 LDL INTERPRETATION: Low Risk Optimal Level: LDL Less than 100 MG/DL Near or Above Optimal: LDL 100-129 MG/DL Borderline High Risk: LDL 130-159 MG/DL High Risk: LDL 160-189 MG/DL Very High Risk: LDL Greater than 189 MG/DL 41 CHOLESTEROL INTERPRETATION: Desirable: Less than 200 MG/DL Borderline-High Risk: 200-239 MG/DL High-Risk: 240 MG/DL and over 42 HDL INTERPRETATION: Undesirable: High Risk: Less than 40 MG/DL Desirable: Low Risk: Greater than 60 MG/DL 43 LDL INTERPRETATION: Low Risk Optimal Level: LDL Less than 100 MG/DL Near or Above Optimal: LDL 100-129 MG/DL Borderline High Risk: LDL 130-159 MG/DL High Risk: LDL 160-189 MG/DL Very High Risk: LDL Greater than 189 MG/DL 44 CHOLESTEROL INTERPRETATION: Desirable: Less than 200 MG/DL Borderline-High Risk: 200-239 MG/DL High-Risk: 240 MG/DL and over 45 HDL INTERPRETATION: Undesirable: High Risk: Less than 40 MG/DL Desirable: Low Risk: Greater than 60 MG/DL 46 LDL INTERPRETATION: Low Risk Optimal Level: LDL Less than 100 MG/DL Near or Above Optimal: LDL 100-129 MG/DL Borderline High Risk: LDL 130-159 MG/DL High Risk: LDL 160-189 MG/DL Very High Risk: LDL Greater than 189 MG/DL 47 A metabolite of Naproxen, O-desmethylnaproxen, has been shown to interfere with the [place] method for measuring total bilirubin. Samples from patients who have taken Naproxen have shown spurious elevation in total bilirubin levels. 48 Please note updated reference range, effective 05/12/10 49 A metabolite of Naproxen, O-desmethylnaproxen, has been shown to interfere with the [place] method for measuring total bilirubin. Samples from patients who have taken Naproxen have shown spurious elevation in total bilirubin levels. 50 Please note updated reference range, effective 05/12/10 51 CHOLESTEROL INTERPRETATION: Desirable: Less than 200 MG/DL Borderline-High Risk: 200-239 MG/DL High-Risk: 240 MG/DL and over 52 HDL INTERPRETATION: Undesirable: High Risk: Less than 40 MG/DL Desirable: Low Risk: Greater than 60 MG/DL 53 LDL INTERPRETATION: Low Risk Optimal Level: LDL Less than 100 MG/DL Near or Above Optimal: LDL 100-129 MG/DL Borderline High Risk: LDL 130-159 MG/DL High Risk: LDL 160-189 MG/DL Very High Risk: LDL Greater than 189 MG/DL 54 Anion gap measurement may be of limited value in the presence of any alkalosis, especially in a combined acid base disorder. . 55 Because ethnic data is not always readily [...] 15-29 5 Kidney failure <15 (or dialysis) 56 Anion gap measurement may be of limited value in the presence of any alkalosis, especially in a combined acid base disorder. . 57 Because ethnic data is not always readily [...] 15-29 5 Kidney failure <15 (or dialysis) 58 NO MRSA ISOLATED 59 PT TAKES AN ASPRIN 60 Anion gap measurement may be of [...] 5 Kidney failure <15 (or dialysis) 62 Lymphopenia % 63 Recommended INR for Patients on Oral Anticoagulants Prophylaxis 2.0 - 3.0 Treatment of thrombosis 2.0 - 3.0 Prevention of embolism 2.0 - 3.0 Prevention of embolism from prosthetic heart valves 2.5 - 3.5 64 DIAGNOSIS,TREATMENT,AND THERAPY MUST BE BASED ON THE INR VALUE ALONE. 65 SDS /16 66 Anion gap measurement may be of limited value in the presence of any alkalosis, especially in a combined acid base disorder. . 67 Note change in reference range as of 06/11/08. The change was based on recommendations from the [employer] [place] [employer]. 68 Please note change in reference range effective 08 . Procedures Date CPT Code Description Status 09/18/201738693 Injection Single Tendon Origin/Insertion Completed 09/18/201717476 Inject Tendon Sheath Or Ligament Aponeurosis Eg Plantar Completed Fascia 09/05/2017 30353 EKG Tracing & Interpretation Completed 08/14/201731264 Inject Tendon Sheath Or Ligament Aponeurosis Eg Plantar Completed Fascia 08/14/2017 51403 Inject Tendon Sheath Or Ligament Aponeurosis Eg Plantar Completed Fascia 09/26/2016 94127 Nerve Conduction 03-04 Studies Completed 09/04/2016 52619 EKG Tracing & Interpretation Completed 06/22/2016 00489 Treadmill Interp/Report Only Completed 06/22/2016 23704 Stress Test Supervsn W/Out I/R Completed 06/22/2016 59998 EKG, Interpretation Only Completed 05/15/2016 93330 ECHO Transthorasic Realtime 2D W Doppler & Color Completed Flow [facility] 07/14/2015 70765 EKG Tracing & Interpretation Completed 03/19/2015 16247 Inject/Drain Joint/Bursa Major Completed 12/25/2014 33823 Inject/Drain Joint/Bursa Small Completed 10/28/2014 77872 EKG Tracing & Interpretation Completed 10/27/2014 07990 Inject/Drain Joint/Bursa Major Completed 09/23/2014 68708 Rad Shoulder Comp, Min. 2 Views Completed 11/21/2013 18558 Left Heart Cath. Incl S/I Coronaries, Angio S/I V Gram Completed If Done 11/13/2013 77382 Treadmill Interp/Report Only Completed 11/13/2013 71502 Stress Test Supervsn W/Out I/R Completed 11/04/2013 07120 EKG Tracing & Interpretation Completed 09/24/2013 46216 ECHO Transthorasic Realtime 2D W Doppler & Color Completed [facility] 09/24/2013 67369 EKG, Interpretation Only Completed 09/23/2013 40482 IV Rx Trancath Therapy(Nitro/Arcenio) Completed 09/23/2013 76083 Percutaneous Transcatheter Placement Of Intracoronary Completed Stent 09/23/2013 26913 Ptca W/Intracor Stent Completed 09/23/2013 02002 EKG, Interpretation Only Completed 09/23/2013 88625 Cath PLMT&NJX L Ventriculog Img S&I Completed 09/23/2013 90647 Left Heart Cath. Incl S/I Coronaries, Angio S/I V Gram Completed If Done 05/23/2012 27390 Inject/Drain Joint/Bursa Major Completed 03/05/2012 19427 Treadmill Interp/Report Only Completed 03/05/2012 82048 Stress Test Supervsn W/Out I/R Completed 02/26/2012 44300 EKG Tracing & Interpretation Completed 09/27/2011 54162 EKG Tracing & Interpretation Completed 09/21/2011 84307 Rad Shoulder Comp, Min. 2 Views Completed 09/21/2011 39733 Inject/Drain Joint/Bursa Intermediate Completed 02/16/2011 27546 EKG Tracing & Interpretation Completed 02/04/2011 25561 EKG, Interpretation Only Completed 02/02/2011 02180 Ptca W/Intracor Stent Completed 02/02/2011 12310 EKG, Interpretation Only Completed 02/02/2011 73036 ECHO Transthorasic Realtime 2D W Doppler & Color Completed Flow [facility] 02/02/2011 21232 Pulse Wave/Continuous-Interp.RPT Completed 02/02/2011 60217 Color Flow Doppler/Interp & Reprt Completed 02/02/2011 78162 Left Heart Cath. Incl S/I Coronaries, Angio S/I V Gram Completed If Done 01/30/2011 81237 EKG Tracing & Interpretation Completed 08/06/2008 10834 Endoscopy Wrist Surg W/Release Of Transverse Carpal Completed Ligament 08/06/2008 83210 Endoscopy Wrist Surg W/Release Of Transverse Carpal Completed Ligament 06/23/2005 01990 ECHO/Stress Completed 06/23/2005 54872 Stress Test Completed 06/22/2005 04671 EKG Tracing & Interpretation Completed Encounters Type Date Location Provider CPT E/M Dx Office Visit 09/05/2017 [facility] Roxana Malone M.D., 83783 E78.5 10:40a Quality Nurse At [facility] I10 I25.10 R10.13 Office Visit 01/09/2017 11:45a [facility] Andreia Finn, 72217 R47.1 Services Of Matthew Gutiérrez R29.810 Office Visit 12/14/2016 9:45a [facility] Andreia Mckeon 18080 R29.810 Services Of Matthew Finn M.D. Office Visit 12/11/2016 3:30p [facility] Augusto Brian, 05211 R29.810 Brock R47.1 Office Visit 09/04/2016 9:40a [facility] Roxana Malone M.D., 17652 I25.10 [facility] At [facility] I10 E78.5 Office Visit 08/10/2016 3:00p [facility] Finn, 55369 G25.0 Services Of Matthew Gutiérrez R20.0 Office Visit 06/22/2016 12:19p [facility] Roxana Malone M.D., 66044 R07.9 [facility] I25.10 Office Visit 06/21/2016 12:18p [facility] Roxana Malone M.D., 70765 R07.9 Quality Nurse At [facility] I25.10 Office Visit 12/02/2015 9:00a [facility] Finn, 46805 R51 Services Of Matthew Gutiérrez G25.0 I67.9 Office Visit 07/14/2015 4:00p [facility] Of Matthew Malone M.D., 25805 I10 At [facility] I25.9 E78.5 Office Visit 04/21/2015 10:30a [facility] Of Malaika 37295 333.1 Rivka Veras M.D. Office Visit 03/26/2015 10:30a [facility] Andreia Finn, 77277 784.0 MJaja 333.1 Office Visit 12/25/2014 9:45a [facility] Norberto Roy, 03579 719.41 CLilly Gutiérrez 729.5 715.34 Office Visit 10/28/2014 2:40p [facility] Of Jimmie Malone M.D., 28016 401.1 [facility] 414.9 272.4 Office Visit 10/27/2014 3:30p [facility], 30370 719.41 C.Megan Gutiérrez 726.2 Office Visit 09/23/2014 9:00a [facility], 45164 719.41 Rivka Gutiérrez Office Visit 08/27/2014 12:30p [facility] Finn, 74291 784.0 Services Of Matthew Gutiérrez 333.1 437.9 Office Visit 05/19/2014 3:15p [facility] Finn, 81423 784.0 Services Of Matthew Gutiérrez 333.1 Office Visit 01/02/2014 2:30p [facility] Of Jimmie Malone M.D., 07188 414.9 [facility] 401.1 272.4 Office Visit 11/28/2013 3:00p [facility] Of Jimmie Malone M.D., 27924 401.1 [facility] At [facility], [facility] 272.4 414.9 Office Visit 11/04/2013 2:00p [facility] Jacqueline Garg 22428 786.50 [facility] D.OPaul 414.01 401.1 250.00 530.81 272.4 Office Visit 10/27/2013 11:00a [facility] Jacqueline Garg D.O. 79212 414.01 401.1 250.00 530.81 272.4 Office Visit 09/27/2013 4:00p [facility], lOiverio Scott M.D. 21318 786.50 Hospitalists 414.01 530.81 401.9 Office Visit 09/26/2013 3:59p [facility],pc Oliverio Scott M.D. 57480 786.50 Hospitalists 414.01 530.81 401.9 Office Visit 09/26/2013 10:37a [facility] Jacqueline Garg D.O. 08288 786.50 414.01 250.00 401.1 Office Visit 09/24/2013 3:13p [facility] Jacqueline Garg D.O. 06290 411.1 414.01 401.1 250.00 Office Visit 09/23/2013 9:30a [facility] Jacqueline Garg D.O. 84246 411.1 414.01 401.1 250.00 Office Visit 09/15/2013 1:20p [facility] Jacqueline Garg D.O. 02480 413.0 414.01 401.1 272.4 250.90 Office Visit 04/17/2013 2:40p [facility] Jacqueline Garg 67582 414.01 [facility] D.O. 401.1 272.4 250.90 278.00 Office Visit 10/30/2012 2:20p [facility] Jacqueline Garg D.O. 28935 414.01 401.1 272.4 250.90 278.00 Office Visit 07/26/2012 8:30a [facility] Andreia Finn, 29361 784.0 Services Of Matthew Gutiérrez 354.0 Office Visit 07/07/2012 9:45a [facility] [address] 530.81 Hospitalists 414.02 250.90 Office Visit 07/06/2012 9:45a [facility] [address] 786.51 Hospitalists 414.02 530.81 250.90 Office Visit 06/04/2012 2:30p [facility], 21377 414.01 [facility] 272.4 401.1 Office Visit 05/23/2012 10:15a [facility] Roy M.D. 91821 726.2 C.M.A. 715.11 Office Visit 02/26/2012 11:00a [facility] Jacqueline Garg D.O. 07163 786.50 414.01 401.1 272.4 250.00 Office Visit 10/18/2011 8:45a [facility], 62743 716.91 C.M.A. M.DPaul 726.2 Office Visit 09/27/2011 10:20a [facility] Jacqueline Garg D.O. 68097 414.01 401.1 272.4 250.00 278.00 Office Visit 09/21/2011 2:15p [facility] Roy, 85122 716.91 C.M.A. M.DPaul 726.2 Office Visit 05/01/2011 2:20p [facility] Jacqueline Garg D.O. 50782 414.01 401.1 272.4 250.00 278.00 Office Visit 02/16/2011 8:30a [facility] Jacqueline Garg D.O. 15093 414.01 250.62 401.1 272.4 Office Visit 02/05/2011 8:49a [facility] Weslindamarvin MilaPaul Rico, 06960 794.31 Brock 414.01 401.1 786.50 V45.82 Office Visit 02/03/2011 8:44a [facility] Jacqueline Garg D.O. 92822 414.01 V45.82 786.50 Office Visit 02/02/2011 9:30a [facility] Jacqueline Garg D.O. 06425 414.01 v45.82 786.50 Office Visit 01/30/2011 10:20a [facility] Jacqueline Garg D.O. 09804 411.1 250.00 401.1 278.01 Office Visit 07/28/2008 1:00p [facility] Russ Rogers 99978 354.0 Of Matthew Gutiérrez Office Visit 05/25/2008 3:30p [facility] Russ Rogers 73414 354.0 Of Matthew Gutiérrez Office Visit 06/22/2005 3:20p [facility] Terrence Zambrano 22114 786.50 Brock Ruiz 401.1 272.0 278.01 Plan of Care Future Appointment(s):10/08/2017 3:40 pm - Jimmie Malone M.D., FAC, [facility] At [facility]10/02/2017 11:30 am - Jimmie Malone M.D., FACC, [facility] at [facility] At [facility]09/26/2017 - Jimmie Malone M.D., [facility], [id number] Epigastric painNew Orders:Cardiac CatheterizationComments:We need to further assess your chest discomforts in light of the abnormal stress test.Recommendations:We will schedule your catheterization. Stop your metformin 2 days before the catheterization.
[2017-10-26] MEDS ORDERED: Morphine INJ* 4 MG/ML 1 ML CARPUJECT IV ONE (11:55)
[2017-10-26] MEDS ORDERED: Ondansetron INJ* 2 MG/ML VIAL IV ONE (11:55)
[2017-10-26 12:02] LABS: ABS Basophils 0.1 10^3/ul (0-0.2); ABS Eosinophils 0.2 10^3/ul (0-0.6); ABS Lymphocytes 1.7 10^3/ul (1.0-4.8); ABS Monocytes 0.5 10^3/ul (0-0.8); ABS Neutrophils 6.6 10^3/ul (1.5-7.7); ABS Nucleated RBC 0 10^3/ul; Eosinophil % 2.5 % (0-6); Hematocrit 35 % (42-52); Hemoglobin 11.9 g/dl (14.0-18.0); Lymphocyte % 18.4 % (25-47); Mean Corpuscular HGB Conc 34 g/dl (31-36); Mean Corpuscular Hemoglobin 32 pg (27-31); Mean Corpuscular Volume 94 fL (80-94); Mean Platelet Volume 7 um3 (7.4-10.4); Nucleated Red Blood Cells % 0; Platelet Count 237 10^3/ul (150-450); Red Blood Count 3.78 10^6/ul (4.0-5.4); Red Cell Distribution Width 17 % (10.5-15); White Blood Count 9.2 10^3/ul (3.5-10.8)
[2017-10-26 12:15] LABS: EGFR Non-African American 38.6 (>60)
[2017-10-26] MEDS ORDERED: Morphine INJ* 10 MG/ML 1 ML CARPUJECT ONE ×2 (12:44→18:37)
[2017-10-26] MEDS ORDERED: Iodixanol* (CONTRAST) 320 MG/ML 100 ML SDV IV ONE (13:47)
--- NOTE | 2017-10-26 14:33 | RAD ---
CLINICAL HISTORY: Right lower quadrant pain, left upper quadrant pain, history of pancreatitis COMPARISON: November 06, 2014 TECHNIQUE: Multiple contiguous axial CT scans were obtained of the abdomen and pelvis after the administration of intravenous contrast. Coronal and sagittal multiplanar reformations are submitted for review. Oral contrast was administered. Delayed images were obtained through the abdomen and pelvis. FINDINGS: The dome of the liver is incompletely included within the [id number] the current images. LUNG BASES: The lung bases are clear. LIVER: The liver is diffusely low in attenuation compared to the spleen. There are no focal hepatic parenchymal masses. BILE DUCTS: There is no intrahepatic or extrahepatic biliary dilatation. GALLBLADDER: The gallbladder is normal, without pericholecystic inflammatory change. PANCREAS: The pancreas is normal, without mass or ductal dilatation. SPLEEN: Normal in size and appearance. UPPER GI TRACT: Evaluation of the gastrointestinal tract is limited by incomplete gastric distention. The upper GI tract is unremarkable. SMALL BOWEL AND MESENTERY: The small bowel is normal in contour, course, and caliber. There is no obstruction or dilatation. COLON: The colon is normal in contour, course, caliber. There is no pericolonic inflammatory change. ADRENALS: Normal bilaterally. KIDNEYS: There is stranding of the perinephric fat on the right with focal hyperattenuation along the upper pole. There is focal hypoattenuation of the lower pole of the left kidney There is no appreciable hydronephrosis or nephrolithiasis. BLADDER: The bladder is collapsed and is not well evaluated. PELVIC ORGANS: The prostate gland is normal. The seminal vesicles are symmetric. AORTA: There is calcific atherosclerotic disease of the abdominal aorta and its branches, without aneurysmal dilatation IVC: Unremarkable LYMPH NODES: There is no lymphadenopathy by size criteria. ABDOMINAL WALL: There is no evidence for abdominal wall hernia. BONES AND SOFT TISSUES: Degenerative changes are noted OTHER: None IMPRESSION: 1. PERINEPHRIC INFLAMMATORY CHANGE ON THE RIGHT WITH MILD HYPOATTENUATION OF THE UPPER POLE OF THE RIGHT KIDNEY. THERE IS FOCAL HYPOATTENUATION OF THE LEFT KIDNEY. THE DIFFERENTIAL INCLUDES MULTIFOCAL PYELONEPHRITIS OR BILATERAL RENAL INFARCTS.. 2. FATTY INFILTRATION OF THE LIVER. 3. ATHEROSCLEROSIS
[2017-10-26 15:08] LABS: Urine Appearance Cloudy; Urine Blood Negative (Negative); Urine Color Amber; Urine Ketones Negative (Negative); Urine Protein 2+(100 mg/dL) (Negative); Urine Specific Gravity 1.018 (1.010-1.030); Urine Urobilinogen Negative (Negative)
[2017-10-26] MEDS ORDERED: Acetaminophen TAB* 325 MG PO PRN (17:06)
[2017-10-26] MEDS ORDERED: Dextrose 50% Syringe 50 ML* 25 GM/50 ML SYRINGE IV PUSH PRN (17:06)
[2017-10-26] MEDS ORDERED: Ondansetron INJ* 2 MG/ML VIAL IV PRN (17:06)
[2017-10-26] MEDS ORDERED: ALPRAZolam TAB* 0.5 MG PO PRN (17:09)
[2017-10-26] MEDS ORDERED: Albuterol HFA INHALER* 8 gm MDI INH PRN (17:17)
[2017-10-26] MEDS: Morphine INJ* 4 MG/ML 1 ML CARPUJECT IV PRN ×2 (18:40→23:39)
[2017-10-26] MEDS: Insulin GLARGINE(*) 1 UNITS UNIT SUBCUT SCH (21:16)
[2017-10-26] MEDS: Heparin VIAL(*) 5000 UNITS/ML VIAL (FIVE THOUSAND) SUBCUT SCH (21:18)
[2017-10-26] MEDS: Gabapentin CAP(*) 300 MG PO SCH (21:21)
[2017-10-26] MEDS: Metoprolol Succinate XL TAB* 50 MG PO SCH (21:28)
--- NOTE | 2017-10-26 21:51 | HP ---
CC: Aditya Weston NP; Dr. Loya; Dr. Craven * HISTORY AND PHYSICAL: DATE OF ADMISSION: 10/26/17 PRIMARY CARE PROVIDER: Aditya Weston NP PRIMARY ONCOLOGIST: Dr. Loya. ATTENDING PHYSICIAN WHILE IN THE HOSPITAL: Amadeo Keith MD * (report dictated by Amarjit Huynh NP). CHIEF COMPLAINT: Abdominal pain. HISTORY OF PRESENT ILLNESS: Mr. Loaiza is a 67-year-old male patient with multiple medical problems. He is a vasculopath. He has a history of CAD, hypertension, history of tremors, diabetes, RADU, GERD, melanoma, nephro- lithiasis, Rehman's palsy, multiple myeloma, depression, anxiety, and a history of a renal mass. He comes in to our ER today stating that yesterday he started to have a gradual onset of epigastric and right upper quadrant pain that did settle down into his left flank. He was concerned because the pain was getting more and more severe. He had no associated nausea, fevers, chills. No dysuria, no frequency. He has had no vomiting or diarrhea associated with it. He was concerned though, because the discomfort just was not getting any better. He said he had no chest pain and no shortness of breath with this. He denied having any other abdominal pain. He described it as a sharp stabbing pain that was unrelenting. He denied any exacerbating or alleviating factors at this point. He was concerned, came into the ED, was ultimately found to have a CT scan that was concerning for either bilateral pyelonephritis or bilateral renal infarcts. At that point, the hospitalist service was asked to evaluate for admission. PAST MEDICAL HISTORY: Significant for: 1. CAD. 2. Hypertension. 3. Tremors. 4. Diabetes. 5. RADU. 6. GERD. 7. Melanoma. 8. History of nephrolithiasis. 9. Rehman's palsy. 10. Multiple myeloma. 11. Depression. 12. Anxiety. 13. Renal mass. PAST SURGICAL HISTORY: The patient has had carpal tunnel extraction. He has had a melanoma excision. He has had trigger finger release. He has had a heart catheterization x2. He has had cataracts. He has had a history of a stem cell transplant. MEDICATIONS: Home medications include: 1. Amlodipine 5 mg p.o. daily. 2. Prilosec 40 mg daily. 3. Vitamin D 1000 units p.o. daily. 4. Acyclovir 400 mg p.o. b.i.d. as needed. 5. Triamcinolone cream 1 application topically daily as needed. 6. Toprol XL 50 mg p.o. b.i.d. 7. Neurontin 300 mg p.o. 4 times a day. 8. Nitro 0.4 mg sublingual every 5 minutes x3 for chest pain. 9. Ferrous sulfate 325 mg p.o. daily. 10. Aspirin 81 mg daily. 11. ProAir 2 puffs inhaled every 4 hours. 12. Spiriva 1 capsule inhaled daily. 13. Imdur 120 mg p.o. q.a.m. 14. Lantus 48 units subcu q.p.m. 15. Xanax 1 to 2 tablets p.o. 4 times a day as needed. 16. Multivitamin 1 tablet daily. 17. Metformin 500 mg p.o. b.i.d. 18. Lipitor 20 mg at 1700. 19. Insulin 70/30, 45 units daily and 30 units subcu b.i.d. ALLERGIES: To medications include AUGMENTIN. FAMILY HISTORY: His mother had a history of dementia. Father had a history of diabetes, CAD and MS. SOCIAL HISTORY: He is a former smoker. He does not drink alcohol. Surrogate decision maker is his . REVIEW OF SYSTEMS: There is no documented fever. He denied having any significant weight change. There was no double vision. He denies having any rhinorrhea. There was no sore throat. He denied having any thyroid enlargement. There was no chest pain, no orthopnea. There was no nocturnal dyspnea. There is abdominal pain per my HPI. There was no nausea, no vomiting , no dysuria, no frequency, no loss of consciousness, no pruritus, and no skin ulcerations. Review of 14 systems completed, all others negative. PHYSICAL EXAMINATION GENERAL: At this time, Mr. Loaiza is a 67-year-old male patient who appears to be well nourished, well developed. He is sitting in the ED stretcher. He does not appear to be in any acute distress. VITAL SIGNS: Blood pressure 142/85, pulse 61, respirations 16, his O2 saturation was 92% on 2 L, and his temperature is 98.9. HEENT: Head atraumatic and normocephalic. Eyes: EOMs are intact. Sclerae anicteric and not pale. NECK: Supple. Throat; oral mucosa appears to be moist. No oropharyngeal erythema. LUNGS: Clear to auscultation bilaterally. No wheezes, rales, or rhonchi. HEART: Sounds S1 and S2. Regular rate and rhythm. No murmurs, rubs, or gallops. ABDOMEN: Soft, flat and nontender with the exception he did have some left- sided CVA tenderness. EXTREMITIES: Pulses were 2+ throughout. He was able to move all 4 extremities with 5/5 strength. NEUROLOGIC: The patient is awake. He is alert, he is oriented x3. His tongue is midline. His die forger are equal. He had no gross focal deficits. SKIN: Grossly intact. LABORATORY DATA/DIAGNOSTIC STUDIES: WBC of 9.2, RBC of 3.78, hemoglobin 11.9, hematocrit of 35, platelet count of 237,000. Sodium 135, potassium of 4, chloride of 100, bicarb 27, BUN 20, creatinine 1.77, glucose 153, lactate 1.3, calcium 9.5, total bili 0.8, AST 14, ALT 15, alk phos 70, LDH pending. CRP of 59, albumin of 4. Urine showed 2+ protein, 1+ RBC, and 1+ glucose. The patient did have an abdominal and pelvis CT scan with contrast, showed perinephritic inflammatory change on the right with mild hypoattenuation of the upper pole of the right kidney. There was focal hypoattenuation of the left kidney. The differential includes multifocal pyelonephritis with bilateral renal infarcts. He had a fatty infiltrate of the liver. He had atherosclerosis. Old medical records were reviewed. ASSESSMENT AND PLAN: Mr. Loaiza is a 67-year-old male patient with multiple vascular risk factors coming into the ED today with abdominal pain, on evaluation found to have bilateral renal infarcts versus bilateral pyelonephritis. We were asked to evaluate for admission. He will admitted under inpatient status for: 1. Bilateral pyelonephritis versus renal infarcts. I suspect this is probably renal infarct, as his urine essentially has trace WBC's, but no overt signs of infection which is what I would expect with pyelonephritis, particularly bilaterally. In addition to this, he has no white count and no fever. Should he spike a fever, I think he gets antibiotics as this was most likely infection. However, the patient is a vasculopath, he has multiple plaques in his aorta. 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 I did touch base with Dr. Craven. He recommended checking a D-dimer, blood cultures, LDH, also echo with bubble study, and to look for deep venous thrombosis in bilateral lower extremities. Ultrasounds to rule out deep venous thrombosis. I did evaluate the patient's nail beds and did not appreciate any cyanosis or splinter like lesions that I could see. The plan again at this point is to rule out other etiologies. I also have added on a hypercoagulable workup and again the LDH. We will continue with pain management. I did order the patient Percocet as needed for pain and I will continue to follow him closely and follow his renal function closely. 2. Coronary artery disease. He is on nitrates, aspirin, statin and beta- angel therapy. We will continue. 3. Hypertension. Continue meds as prescribed. 4. History of tremors, not an active issue. 5. History of melanoma and multiple myeloma. He will follow with Dr. Loya. 6. History of nephrolithiasis. No reports of stones on CT imaging. 7. Anxiety. Continue meds as prescribed. 8. Obstructive sleep apnea. I did order a CPAP. He does wear O2 at night. 9. History of gastroesophageal reflux disease. Continue PPI therapy. 10. History of diabetes. Continue meds as prescribed. 11. History of reactive airway disease, possible chronic obstructive pulmonary disease. Again, he is on Spiriva and p.r.n. albuterol. We will continue these meds as prescribed. 12. DVT prophylaxis. He will be placed on heparin subcu. 13. Chronic kidney disease. His creatinine appears to be at baseline, we will monitor, especially in the setting of possible renal infarcts. 14. Code status. He is a full code. 15. Fluids, electrolytes, and nutrition. He can have a heart-healthy consistent carb type diet. TIME SPENT: Time spent on the admission was approximately 60 minutes, greater than half that time was spent [id number] with the patient obtaining my history and physical, other half of the time spent going over the plan of care with the patient and implementing the plan of care. I discussed the plan with my attending, Dr. Keith, who is in agreement. AMARJIT HUYNH NP [id number]/[facility] #: [id number] [facility]ITAL[facility]
--- NOTE | 2017-10-26 22:21 | ED ---
Genesis Almodovar Julia, scribed for Wilbert Long MD on 10/26/17 at 1223 . Abdominal Pain/Male - HPI Summary HPI Summary: This patient is a 67 year old M presenting to [facility] accompanied by his with a chief complaint of abdominal pain radiating to back since last evening worsening today. Patient denies N/V/D, irregular BM, dysuria, or hematuria. The patient rates the pain 6/10 in severity. Symptoms aggravated by nothing. Symptoms alleviated by nothing. Patient denies a history of hernias. - History of Current Complaint Chief Complaint: EDAbdPain Stated Complaint: ABD PAIN Time Seen by Provider: 10/26/17 11:25 Hx Obtained From: Patient Onset/Duration: Lasting Days Timing: Constant Severity Initially: Mild Severity Currently: Moderate Pain Intensity: 6 Pain Scale Used: 0-10 Numeric Radiates to: Back Aggravating Factor(s): Nothing Alleviating Factor(s): Nothing - Allergies/Home Medications Allergies/Adverse Reactions: Allergies Allergy/AdvReac Type Severity Reaction Status Date / Time Amoxicillin [From Augmentin] Allergy Diarrhea Verified 10/01/17 15:30 Clavulanic Acid Allergy Unknown Verified 04/12/17 10:36 [From Augmentin] Reaction Details PMH/Surg Hx/FS Hx/Imm Hx Endocrine/Hematology History: Reports: Hx Diabetes - INSULIN and metformin, Hx Anemia Cardiovascular History: Reports: Hx Angina, Hx Coronary Artery Disease, Hx Hypercholesterolemia, Hx Hypertension, Other Cardiovascular Problems/Disorders - 3 stents Denies: Hx Cardiac Arrest, Hx Myocardial Infarction, Hx Pacemaker/ICD, Hx Valvular Heart Disease Respiratory History: Reports: Hx Asthma - possible, Hx Seasonal Allergies, Hx Sleep Apnea Denies: Hx Chronic Obstructive Pulmonary Disease (COPD) - possible, Other Respiratory Problems/Disorders - DENIES GI History: Reports: Hx Gastroesophageal Reflux Disease, Other GI Disorders - GERD/HX OD PANCREATITIS History: Reports: Hx Kidney Stones - many years ago Denies: Hx Renal Disease Comment Only: Other Problems/Disorders - benign growth on L kidney Musculoskeletal History: Reports: Hx Arthritis, Hx Back Problems - arthritis Sensory History: Reports: Hx Contacts or Glasses Denies: Hx Cataracts - lens implants, Hx Hearing Aid Opthamlomology History: Reports: Hx Contacts or Glasses Denies: Hx Cataracts - lens implants Neurological History: Reports: Other Neuro Impairments/Disorders - numbness R hand, PAIN CLINIC PATIENT Psychiatric History: Reports: Hx Anxiety - with panic attacks Denies: Hx Panic Disorder - Cancer History Cancer Type, Location and Year: 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 MULTIPLE Myeloma Hx Chemotherapy: Yes - Surgical History Surgery Procedure, Year, and Place: CAD - HEART STENT -, 09/2013. carpal tunnel /trigger finger surgery-BILATERAL HANDS. cataracts-BILATERAL. Rt AXILLA DISSECTION - REMOVED TUMOR-1977. Stem Cell Transplant, [facility] February 2016 Hx Anesthesia Reactions: No - Immunization History Date of Tetanus Vaccine: Unk Date of Influenza Vaccine: Fall 2012 Infectious Disease History: Yes Infectious Disease History: Reports: Hx Shingles - 10/2015 Denies: Hx Clostridium Difficile, Hx Hepatitis, Hx Human Immunodeficiency Virus (HIV), Hx of Known/Suspected MRSA, Hx Tuberculosis, Hx Known/Suspected VRE , Hx Known/Suspected VRSA, History Other Infectious Disease, Traveled Outside the in Last 30 Days - Family History Known Family History: Positive: Cardiac Disease, Diabetes - Social History Alcohol Use: Rare Substance Use Type: Reports: None Hx Tobacco Use: Yes - PIPE AND OCCASSIONAL CIGAR Smoking Status (MU): Former Smoker Type: Cigarettes Amount Used/How Often: CIGARS AND PIPE 1-3 TIMES A WEEK WHILE GOLFING Length of Time of Smoking/Using Tobacco: went form about 1pck/d Cigarettes,to pipe occ cigar. Have You Smoked in the Last Year: No Review of Systems Negative: Fever, Chills Negative: Erythema Negative: Sore Throat Negative: Chest Pain Negative: Shortness Of Breath, Cough Positive: Abdominal Pain, Other - negative - irregular BM. Negative: Vomiting, Diarrhea, Nausea Negative: dysuria, hematuria Negative: Myalgia, Edema Negative: Rash Neurological: Other - negative - dizziness All Other Systems Reviewed And Are Negative: Yes Physical Exam - Summary Physical Exam Summary: Constitutional: Well-developed, Well-nourished, Alert. (-) Distressed Skin: Warm, Dry HENT: Normocephalic; Atraumatic Eyes: Conjunctiva normal Neck: Musculoskeletal ROM normal neck. (-) JVD, (-) Stridor, (-) Tracheal deviation Cardio: Rhythm regular, rate normal, Heart sounds normal; Intact distal pulses; The pedal pulses are 2+ and symmetric. Radial pulses are 2+ and symmetric. (-) Murmur Pulmonary/Chest wall: Effort normal. (-) Respiratory distress, (-) Wheezes, (-) Rales Abd: Soft, LUQ and RLQ Tenderness, (-) Distension, (-) Guarding, (-) Rebound, No palpable hernias Musculoskeletal: (-) Edema Lymph: (-) Cervical adenopathy Neuro: Alert, Oriented x3 Psych: Mood and affect Normal Triage Information Reviewed: Yes Vital Signs On Initial Exam: Initial Vitals Temp Pulse Resp BP Pulse Ox 98.9 F 70 18 170/89 94 10/26/17 10:46 10/26/17 10:46 10/26/17 10:46 10/26/17 10:46 10/26/17 10:46 Vital Signs Reviewed: Yes - Srikanth Coma Scale Coma Scale Total: 15 Diagnostics - Vital Signs Vital Signs Temp Pulse Resp BP Pulse Ox 10/26/17 11:29 95 10/26/17 11:02 64 95 10/26/17 11:01 144/82 10/26/17 10:46 98.9 F 70 18 170/89 94 - Laboratory Lab Results: Lab Results 10/26/17 10/26/17 10/26/17 Range/Units 11:47 11:47 11:47 WBC 9.2 (3.5-10.8) 10^3/ul RBC 3.78 L (4.0-5.4) 10^6/ul Hgb 11.9 L (14.0-18.0) g/dl Hct 35 L (42-52) % MCV 94 (80-94) fL MCH 32 H (27-31) pg MCHC 34 (31-36) g/dl RDW 17 H (10.5-15) % Plt Count 237 (150-450) 10^3/ul MPV 7 L (7.4-10.4) um3 Neut % (Auto) 72.4 (38-83) % Lymph % (Auto) 18.4 L (25-47) % [place] % (Auto) 5.9 (1-9) % Eos % (Auto) 2.5 (0-6) % Baso % (Auto) 0.8 (0-2) % Absolute Neuts (auto) 6.6 (1.5-7.7) 10^3/ul Absolute Lymphs (auto) 1.7 (1.0-4.8) 10^3/ul Absolute Monos (auto) 0.5 (0-0.8) 10^3/ul Absolute Eos (auto) 0.2 (0-0.6) 10^3/ul Absolute Basos (auto) 0.1 (0-0.2) 10^3/ul Absolute Nucleated RBC 0 10^3/ul Nucleated RBC % 0 Sodium 135 (133-145) mmol/L Potassium 4.0 (3.5-5.0) mmol/L Chloride 100 L (101-111) mmol/L Carbon Dioxide 27 (22-32) mmol/L Anion Gap 8 (2-11) mmol/L BUN 20 (6-24) mg/dL Creatinine 1.77 H (0.67-1.17) mg/dL Est GFR ( Amer) 49.6 (>60) Est GFR (Non-Af Amer) 38.6 (>60) BUN/Creatinine Ratio 11.3 (8-20) Glucose 153 H (70-100) mg/dL Lactic Acid 1.3 (0.5-2.0) mmol/L Calcium 9.5 (8.6-10.3) mg/dL Total Bilirubin 0.80 (0.2-1.0) mg/dL AST 14 (13-39) U/L ALT 15 (7-52) U/L Alkaline Phosphatase 70 (34-104) U/L Lactate Dehydrogenase 219 (140-271) U/L C-Reactive Protein 59.36 H (< 5.00) mg/L Total Protein 7.8 (6.4-8.9) g/dL Albumin 4.0 (3.2-5.2) g/dL Globulin 3.8 (2-4) g/dL Albumin/Globulin Ratio 1.1 (1-3) Lipase 11 (11.0-82.0) U/L Urine Color Urine Appearance Urine pH (5-9) Ur Specific [place] (1.010-1.030) Urine Protein (Negative) Urine Ketones (Negative) Urine Blood (Negative) Urine Nitrate (Negative) Urine Bilirubin (Negative) Urine Urobilinogen (Negative) Ur Leukocyte Esterase (Negative) Urine WBC (Auto) (Absent) Urine RBC (Auto) (Absent) Urine Bacteria (Absent) Urine Glucose (Negative) Urine Ascorbic Acid (Negative) 10/26/17 Range/Units 13:55 WBC (3.5-10.8) 10^3/ul RBC (4.0-5.4) 10^6/ul Hgb (14.0-18.0) g/dl Hct (42-52) % MCV (80-94) fL MCH (27-31) pg MCHC (31-36) g/dl RDW (10.5-15) % Plt Count (150-450) 10^3/ul MPV (7.4-10.4) um3 Neut % (Auto) (38-83) % Lymph % (Auto) (25-47) % [place] % (Auto) (1-9) % Eos % (Auto) (0-6) % Baso % (Auto) (0-2) % Absolute Neuts (auto) (1.5-7.7) 10^3/ul Absolute Lymphs (auto) (1.0-4.8) 10^3/ul Absolute Monos (auto) (0-0.8) 10^3/ul Absolute Eos (auto) (0-0.6) 10^3/ul Absolute Basos (auto) (0-0.2) 10^3/ul Absolute Nucleated RBC 10^3/ul Nucleated RBC % Sodium (133-145) mmol/L Potassium (3.5-5.0) mmol/L Chloride (101-111) mmol/L Carbon Dioxide (22-32) mmol/L Anion Gap (2-11) mmol/L BUN (6-24) mg/dL Creatinine (0.67-1.17) mg/dL Est GFR ( Amer) (>60) Est GFR (Non-Af Amer) (>60) BUN/Creatinine Ratio (8-20) Glucose (70-100) mg/dL Lactic Acid (0.5-2.0) mmol/L Calcium (8.6-10.3) mg/dL Total Bilirubin (0.2-1.0) mg/dL AST (13-39) U/L ALT (7-52) U/L Alkaline Phosphatase (34-104) U/L Lactate Dehydrogenase (140-271) U/L C-Reactive Protein (< 5.00) mg/L Total Protein (6.4-8.9) g/dL Albumin (3.2-5.2) g/dL Globulin (2-4) g/dL Albumin/Globulin Ratio (1-3) Lipase (11.0-82.0) U/L Urine Color Avril Urine Appearance Cloudy Urine pH 6.0 (5-9) Ur Specific [place] 1.018 (1.010-1.030) Urine Protein 2+(100 mg/dl) H (Negative) Urine Ketones Negative (Negative) Urine Blood Negative (Negative) Urine Nitrate Negative (Negative) Urine Bilirubin Negative (Negative) Urine Urobilinogen Negative (Negative) Ur Leukocyte Esterase Negative (Negative) Urine WBC (Auto) Trace(0-5/hpf) (Absent) Urine RBC (Auto) 1+(3-5/hpf) H (Absent) Urine Bacteria Absent (Absent) Urine Glucose 1+(50 mg/dl) H (Negative) Urine Ascorbic Acid * H (Negative) Result Diagrams: 10/26/17 11:47 10/26/17 11:47 Lab Statement: Any lab studies that have been ordered have been reviewed, and results considered in the medical decision making process. - CT A/P CT Interpretation Completed By: Radiologist - 1. PERINEPHRIC INFLAMMATORY CHANGE ON THE RIGHT WITH MILD HYPOATTENUATION OF THE UPPER POLE OF THE RIGHT KIDNEY. THERE IS FOCAL HYPOATTENUATION OF THE LEFT KIDNEY. THE DIFFERENTIAL INCLUDES MULTIFOCAL PYELONEPHRITIS OR BILATERAL RENAL INFARCTS.. 2. FATTY INFILTRATION OF THE LIVER. 3. ATHEROSCLEROSIS ED Physician has reviewed this report. Abdominal Pain Fem Course/Dx - Diagnoses Provider Diagnoses: Renal infarction - Provider Notifications Discussed Care Of Patient With: Zen Keith Time Discussed With Above Provider: 15:45 Instructed by Provider To: Other - admit to r/o thromboembolic source of renal infarction Discharge - Discharge Plan Condition: Stable Disposition: ADMITTED TO [facility] The documentation as recorded by the Genesis mcfarland Julia accurately reflects the service I personally performed and the decisions made by me, Wilbert Long MD.
[2017-10-27] MEDS: Heparin VIAL(*) 5000 UNITS/ML VIAL (FIVE THOUSAND) SUBCUT SCH ×3 (05:53→21:32)
[2017-10-27 08:02] LABS: ABS Basophils 0 10^3/ul (0-0.2); ABS Eosinophils 0.2 10^3/ul (0-0.6); ABS Lymphocytes 1.3 10^3/ul (1.0-4.8); ABS Monocytes 0.5 10^3/ul (0-0.8); ABS Neutrophils 5.5 10^3/ul (1.5-7.7); ABS Nucleated RBC 0 10^3/ul; Eosinophil % 2.8 % (0-6); Hematocrit 30 % (42-52); Hemoglobin 10.2 g/dl (14.0-18.0); Lymphocyte % 16.9 % (25-47); Mean Corpuscular HGB Conc 35 g/dl (31-36); Mean Corpuscular Hemoglobin 32 pg (27-31); Mean Corpuscular Volume 93 fL (80-94); Mean Platelet Volume 7 um3 (7.4-10.4); Nucleated Red Blood Cells % 0; Platelet Count 194 10^3/ul (150-450); Red Blood Count 3.18 10^6/ul (4.0-5.4); Red Cell Distribution Width 18 % (10.5-15); White Blood Count 7.5 10^3/ul (3.5-10.8)
[2017-10-27 08:12] LABS: EGFR Non-African American 37.1 (>60)
[2017-10-27] MEDS: Aspirin EC Low Dose* 81 MG TAB.EC PO SCH (08:49)
[2017-10-27] MEDS: Metoprolol Succinate XL TAB* 50 MG PO SCH ×2 (08:49→21:31)
[2017-10-27] MEDS: Omeprazole CAP* 20 MG PO SCH (08:49)
[2017-10-27] MEDS: amLODIPine TAB* 5 MG PO SCH (08:49)
[2017-10-27] MEDS: Isosorbide Mononitrate ER TAB* 60 MG PO SCH (08:49)
[2017-10-27] MEDS: Gabapentin CAP(*) 300 MG PO SCH ×4 (08:49→21:31)
[2017-10-27] MEDS: Multivitamins/Minerals TAB PO SCH (08:50)
[2017-10-27] MEDS: Insulin LISPRO* 1 UNITS UNIT SUBCUT SCH ×3 (08:50→17:06)
[2017-10-27] MEDS: Ferrous Sulfate TAB* 325 MG PO SCH (08:50)
[2017-10-27] MEDS ORDERED: Spiriva Inhaler DEVICE* 1 EACH DEVICE INH ONE (09:00)
[2017-10-27] MEDS: Tiotropium CAP.INH* CAP.INH/18 MCG (USE ORDER SET !) INH SCH (09:03)
--- NOTE | 2017-10-27 09:41 | PN ---
Subjective Date of Service: 10/27/17 Interval History: Pt examined today at the bedside today. States that he is feeling better. Denies chest pain. States his abdominal pain is imrpoved and is almost gone. Denies nausea or vomiting. ROS-denies fever, denies chest pain, denies sob, admits to abdominal pain to left flank but improved, denies nausea, denies vomiting, denies lightheadedness , denies loc, review of 11 systems completed all others negative, Objective Active Medications: Acetaminophen (Tylenol Tab*) 650 mg PO Q4H PRN PRN Reason: FEVER/PAIN Albuterol (Ventolin Hfa Inhaler*) 2 puff INH Q4H PRN PRN Reason: SOB/WHEEZING Alprazolam (Xanax Tab*) 0.5 mg PO QID PRN PRN Reason: ANXIETY Amlodipine Besylate (Norvasc Tab*) 5 mg PO DAILY [facility] Last Admin: 10/27/17 08:49 Dose: 5 mg Aspirin (A[facility]in Ec Low Dose*) [facility] Last Admin: 10/27/17 08:49 Dose: 81 mg Atorvastatin Calcium (Lipitor*) 80 mg PO 1700 [facility] Dextrose (D50w Syringe 50 Ml*) 12.5 gm IV PUSH .FOR FS < 60 - SS PRN PRN Reason: FS < 60 Ferrous Sulfate (Ferrous Sulfate Tab*) 325 mg PO QAM [facility] Last Admin: 10/27/17 08:50 Dose: 325 mg Gabapentin (Neurontin Cap(*)) 300 mg PO QID [facility] Last Admin: 10/27/17 08:49 Dose: 300 mg Heparin Sodium (Porcine) (Heparin Vial(*)) 5,000 units SUBCUT Q8HR [facility] Last Admin: 10/27/17 05:53 Dose: 5,000 units Insulin Glargine (Lantus(*)) 48 units SUBCUT QPM [facility] Last Admin: 10/26/17 21:16 Dose: 48 units Insulin Human Lispro (Humalog*) 0 units SUBCUT AC [facility] PRN Reason: Protocol Last Admin: 10/27/17 08:50 Dose: 3 unit Isosorbide Mononitrate (Imdur Er Tab*) [facility] Last Admin: 10/27/17 08:49 Dose: 120 mg Metoprolol Succinate (Toprol Xl Tab*) 50 mg PO BID [facility] Last Admin: 10/27/17 08:49 Dose: 50 mg Morphine Sulfate (Morphine Inj (Syringe)*) 4 mg IV Q4H PRN PRN Reason: PAIN Last Admin: 10/26/17 23:39 Dose: 4 mg Multivitamins/Minerals (Theragran/Minerals Tab*) 1 tab PO QAM [facility] Last Admin: 10/27/17 08:50 Dose: 1 tab Omeprazole (Prilosec Cap*) 40 mg PO DAILY [facility] Last Admin: 10/27/17 08:49 Dose: 40 mg Ondansetron HCl (Zofran Inj*) 4 mg IV Q6H PRN PRN Reason: NAUSEA Oxycodone/Acetaminophen (Percocet 5/325 Tab*) 1 tab PO Q4H PRN PRN Reason: PAIN Tiotropium [place] (Spiriva Cap.Inh*) 1 cap INH QAM [facility] Last Admin: 10/27/17 09:03 Dose: 1 cap Vital Signs - 8 hr 10/27/17 10/27/17 10/27/17 03:30 07:21 08:00 Temperature 98.0 F 98.2 F Pulse Rate 62 66 Respiratory 22 16 20 Rate Blood Pressure 130/67 141/67 (mmHg) O2 Sat by Pulse 96 88 Oximetry 10/27/17 10/27/17 08:49 09:10 Temperature Pulse Rate 66 Respiratory 16 20 Rate Blood Pressure (mmHg) O2 Sat by Pulse 90 Oximetry Oxygen Devices in Use Now: Nasal Cannula Appearance: 67 y/o male patient sitting in bed NAD, Eyes: No Scleral Icterus, PERRLA Ears/Nose/Mouth/Throat: NL Teeth, Lips, Gums Neck: NL Appearance and Movements; NL JVP, No Thyroid Enlargement, Masses Respiratory: Symmetrical Chest Expansion and Respiratory Effort Cardiovascular: NL Sounds; No Murmurs; No JVD Abdominal: NL Sounds; No Tenderness; No Distention Extremities: No Edema Skin: No Rash or Ulcers Neurological: Alert and Oriented x 3 Lines/Tubes/Other Access: Clean, Dry and Intact Peripheral IV Result Diagrams: 10/27/17 07:30 10/27/17 07:30 Additional Lab and Data: Lab Results 10/26/17 10/26/17 10/26/17 Range/Units 11:47 11:47 11:47 WBC 9.2 (3.5-10.8) 10^3/ul RBC 3.78 L (4.0-5.4) 10^6/ul Hgb 11.9 L (14.0-18.0) g/dl Hct 35 L (42-52) % MCV 94 (80-94) fL MCH 32 H (27-31) pg MCHC 34 (31-36) g/dl RDW 17 H (10.5-15) % Plt Count 237 (150-450) 10^3/ul MPV 7 L (7.4-10.4) um3 Neut % (Auto) 72.4 (38-83) % Lymph % (Auto) 18.4 L (25-47) % [place] % (Auto) 5.9 (1-9) % Eos % (Auto) 2.5 (0-6) % Baso % (Auto) 0.8 (0-2) % Absolute Neuts (auto) 6.6 (1.5-7.7) 10^3/ul Absolute Lymphs (auto) 1.7 (1.0-4.8) 10^3/ul Absolute Monos (auto) 0.5 (0-0.8) 10^3/ul Absolute Eos (auto) 0.2 (0-0.6) 10^3/ul Absolute Basos (auto) 0.1 (0-0.2) 10^3/ul Absolute Nucleated RBC 0 10^3/ul Nucleated RBC % 0 Sodium 135 (133-145) mmol/L Potassium 4.0 (3.5-5.0) mmol/L Chloride 100 L (101-111) mmol/L Carbon Dioxide 27 (22-32) mmol/L Anion Gap 8 (2-11) mmol/L BUN 20 (6-24) mg/dL Creatinine 1.77 H (0.67-1.17) mg/dL Est GFR ( Amer) 49.6 (>60) Est GFR (Non-Af Amer) 38.6 (>60) BUN/Creatinine Ratio 11.3 (8-20) Glucose 153 H (70-100) mg/dL Lactic Acid 1.3 (0.5-2.0) mmol/L Calcium 9.5 (8.6-10.3) mg/dL Total Bilirubin 0.80 (0.2-1.0) mg/dL AST 14 (13-39) U/L ALT 15 (7-52) U/L Alkaline Phosphatase 70 (34-104) U/L Lactate Dehydrogenase 219 (140-271) U/L C-Reactive Protein 59.36 H (< 5.00) mg/L Total Protein 7.8 (6.4-8.9) g/dL Albumin 4.0 (3.2-5.2) g/dL Globulin 3.8 (2-4) g/dL Albumin/Globulin Ratio 1.1 (1-3) Lipase 11 (11.0-82.0) U/L Urine Color Urine Appearance Urine pH (5-9) Ur Specific [place] (1.010-1.030) Urine Protein (Negative) Urine Ketones (Negative) Urine Blood (Negative) Urine Nitrate (Negative) Urine Bilirubin (Negative) Urine Urobilinogen (Negative) Ur Leukocyte Esterase (Negative) Urine WBC (Auto) (Absent) Urine RBC (Auto) (Absent) Urine Bacteria (Absent) Urine Glucose (Negative) Urine Ascorbic Acid (Negative) 10/26/17 Range/Units 13:55 WBC (3.5-10.8) 10^3/ul RBC (4.0-5.4) 10^6/ul Hgb (14.0-18.0) g/dl Hct (42-52) % MCV (80-94) fL MCH (27-31) pg MCHC (31-36) g/dl RDW (10.5-15) % Plt Count (150-450) 10^3/ul MPV (7.4-10.4) um3 Neut % (Auto) (38-83) % Lymph % (Auto) (25-47) % [place] % (Auto) (1-9) % Eos % (Auto) (0-6) % Baso % (Auto) (0-2) % Absolute Neuts (auto) (1.5-7.7) 10^3/ul Absolute Lymphs (auto) (1.0-4.8) 10^3/ul Absolute Monos (auto) (0-0.8) 10^3/ul Absolute Eos (auto) (0-0.6) 10^3/ul Absolute Basos (auto) (0-0.2) 10^3/ul Absolute Nucleated RBC 10^3/ul Nucleated RBC % Sodium (133-145) mmol/L Potassium (3.5-5.0) mmol/L Chloride (101-111) mmol/L Carbon Dioxide (22-32) mmol/L Anion Gap (2-11) mmol/L BUN (6-24) mg/dL Creatinine (0.67-1.17) mg/dL Est GFR ( Amer) (>60) Est GFR (Non-Af Amer) (>60) BUN/Creatinine Ratio (8-20) Glucose (70-100) mg/dL Lactic Acid (0.5-2.0) mmol/L Calcium (8.6-10.3) mg/dL Total Bilirubin (0.2-1.0) mg/dL AST (13-39) U/L ALT (7-52) U/L Alkaline Phosphatase (34-104) U/L Lactate Dehydrogenase (140-271) U/L C-Reactive Protein (< 5.00) mg/L Total Protein (6.4-8.9) g/dL Albumin (3.2-5.2) g/dL Globulin (2-4) g/dL Albumin/Globulin Ratio (1-3) Lipase (11.0-82.0) U/L Urine Color Avril Urine Appearance Cloudy Urine pH 6.0 (5-9) Ur Specific [place] 1.018 (1.010-1.030) Urine Protein 2+(100 mg/dl) H (Negative) Urine Ketones Negative (Negative) Urine Blood Negative (Negative) Urine Nitrate Negative (Negative) Urine Bilirubin Negative (Negative) Urine Urobilinogen Negative (Negative) Ur Leukocyte Esterase Negative (Negative) Urine WBC (Auto) Trace(0-5/hpf) (Absent) Urine RBC (Auto) 1+(3-5/hpf) H (Absent) Urine Bacteria Absent (Absent) Urine Glucose 1+(50 mg/dl) H (Negative) Urine Ascorbic Acid * H (Negative) Assess/Plan/Problems-Billing Assessment: 67 y/[place] [facility] [place] flank pain, found to have bilateral renal infarcts, - Patient Problems (1) CAD (coronary artery disease) Current Visit: Yes Status: Acute Priority: High Comment: No reports of chest pain, or sob, on asa stain and beta, nitrates, follows with Dr aleman, (2) HTN (hypertension) Current Visit: Yes Status: Acute Priority: High Comment: Blood pressure stable, continue PO meds, (3) HLD (hyperlipidemia) Current Visit: Yes Status: Acute Priority: High Comment: Increased statin 80 mg, (4) Tremor Current Visit: Yes Status: Acute Priority: High Comment: Not active, no tremor seen (5) Diabetes Current Visit: Yes Status: Acute Priority: High Comment: COnintue sliding scale, glucose 150-160's, continue lantus, (6) RADU (obstructive sleep apnea) Current Visit: Yes Status: Acute Priority: High Comment: 02 at night, (7) GERD (gastroesophageal reflux disease) Current Visit: Yes Status: Acute Priority: High Comment: PPI no reports of epigastric pain (8) Melanoma Current Visit: Yes Status: Acute Priority: High Comment: not active follows with Dr Loya, (9) Multiple myeloma Current Visit: Yes Status: Acute Priority: High Comment: in remission, follows with Dr Loya, (10) Depression with anxiety Current Visit: Yes Status: Acute Priority: High Comment: Supportive Care, (11) DVT prophylaxis Current Visit: Yes Status: Acute Priority: High Comment: heparin sub q (12) FEN Current Visit: Yes Status: Acute Priority: High Comment: Consistent Carb diet, (13) Full code status Current Visit: Yes Status: Acute Priority: High (14) Renal infarct Current Visit: Yes Status: Acute Priority: High Comment: Creatitine 1.8, etiology unclear but most likely arthoembolic disease, statin increased, will need BP control and DM control, on asa, Dr ibarra to see, echo pending dvt studies pending, hypercoaug work up sent given hx of CA, Dr Loya seeing as well , pain improved, echo tomorrow, (15) Hypoxia Current Visit: Yes Status: Acute Priority: High Comment: Etiology unclear , less likley PE as ddimer 200, checking u/s lower exts, would hold on cta given renal infarct, not tachy and no reports of sob, states he wears o2 at night and his o2 sats are low at baseline, will check cxr, Status and Disposition: Home when stable await input from nephrology,
--- NOTE | 2017-10-27 10:16 | PN ---
Progress Note - Progress Note Date of Service: 10/27/17 SOAP: Subjective: []Has had some intermittent abdominal pain, RUQ with acute increase in pain 2 days ago, sever, 07/31 and came to ER. CT scan with hypodense area lower pole of left kidney, question of infarct or infection. Admission for further evaluation. PmHx: - MM. Dx 05/2015, induction and ASCT 02/2016. - off all therapy from 11/2016 - ROSY as of 09/18/17 - CAD, vascular disease - CRI - DM II - GERD - pancreatitis. Objective: [] Vital Signs Temp Pulse Resp BP Pulse Ox 98.2 F 66 20 141/67 90 10/27/17 07:21 10/27/17 09:10 10/27/17 09:10 10/27/17 07:21 10/27/17 09:10 HEENT - mucosa moist, pale CTA RRR S1S2 Obease, no abdominal or flank pain on exam. Patient reports improved Tr edema LE CT scan reviewed with Dr. Carballo. Most notable finding is lower pole Left kidney , could be infection, infarct, could be chronic. Right side finding left significant. Pancreas looks fine as does GB. Assessment: [67 year old with multiple medical problems and follow for MM in remission. He has acute RUQ pain and CT with question of left renal infarct or infection but no supporting evidence for either. Differential is broad and I am not sure pain is related to CT finding. ] Plan: []1. Agree with coagulation work up, negative Ddimer is reassuring. - No anticoagulation 2. Consider RUQ US for gall stones. 3. Follow pain and if continues to improve can probably be discharged. 4. Nephrology input pending.
--- NOTE | 2017-10-27 10:20 | PN ---
Progress Note - Progress Note Date of Service: 10/27/17 SOAP: ADDENDUM: [There is some increase in globulin, CT no new lytic lesions. Will check SPEP, light chains and QSIG ]
--- NOTE | 2017-10-27 10:22 | RAD ---
INDICATION: Hypoxia. COMPARISON: Comparison is made with a prior chest x-ray study from September 26, 2013. TECHNIQUE: Dual-energy PA and lateral views of the chest were obtained. FINDINGS: The heart is within normal limits in size. Mediastinal and hilar contours appear within normal limits. The lungs are underinflated and clear. No pleural effusion is seen. There is an old healed fracture of the left lateral sixth rib. IMPRESSION: NO EVIDENCE FOR ACTIVE CARDIOPULMONARY DISEASE.
[2017-10-27] MEDS: oxyCODONE/Acetamin 5/325 MG* TAB PO PRN ×2 (14:05→21:32)
[2017-10-27] MEDS ORDERED: Atorvastatin* 20 MG TAB PO SCH (17:00)
[2017-10-27] MEDS: Atorvastatin* 80 MG TAB PO SCH (17:06)
[2017-10-27] MEDS: Insulin GLARGINE(*) 1 UNITS UNIT SUBCUT SCH (18:07)
[2017-10-28] MEDS: Heparin VIAL(*) 5000 UNITS/ML VIAL (FIVE THOUSAND) SUBCUT SCH ×3 (05:22→21:27)
[2017-10-28 05:45] LABS: ABS Basophils 0 10^3/ul (0-0.2); ABS Eosinophils 0.3 10^3/ul (0-0.6); ABS Lymphocytes 1.5 10^3/ul (1.0-4.8); ABS Monocytes 0.5 10^3/ul (0-0.8); ABS Neutrophils 4.4 10^3/ul (1.5-7.7); ABS Nucleated RBC 0 10^3/ul; Eosinophil % 4.4 % (0-6); Hematocrit 28 % (42-52); Hemoglobin 9.5 g/dl (14.0-18.0); Lymphocyte % 22.2 % (25-47); Mean Corpuscular HGB Conc 34 g/dl (31-36); Mean Corpuscular Hemoglobin 32 pg (27-31); Mean Corpuscular Volume 93 fL (80-94); Mean Platelet Volume 7 um3 (7.4-10.4); Nucleated Red Blood Cells % 0; Platelet Count 189 10^3/ul (150-450); Red Blood Count 2.98 10^6/ul (4.0-5.4); Red Cell Distribution Width 18 % (10.5-15); White Blood Count 6.7 10^3/ul (3.5-10.8)
[2017-10-28 06:00] LABS: EGFR Non-African American 31.1 (>60)
[2017-10-28] MEDS: Tiotropium CAP.INH* CAP.INH/18 MCG (USE ORDER SET !) INH SCH (08:15)
[2017-10-28] MEDS: Gabapentin CAP(*) 300 MG PO SCH ×4 (08:53→21:24)
[2017-10-28] MEDS: Aspirin EC Low Dose* 81 MG TAB.EC PO SCH (08:53)
[2017-10-28] MEDS: Multivitamins/Minerals TAB PO SCH (08:53)
[2017-10-28] MEDS: Omeprazole CAP* 20 MG PO SCH (08:53)
[2017-10-28] MEDS: Metoprolol Succinate XL TAB* 50 MG PO SCH ×2 (08:53→21:24)
[2017-10-28] MEDS: amLODIPine TAB* 5 MG PO SCH (08:53)
[2017-10-28] MEDS: Ferrous Sulfate TAB* 325 MG PO SCH (08:53)
[2017-10-28] MEDS: Isosorbide Mononitrate ER TAB* 60 MG PO SCH (08:54)
[2017-10-28] MEDS: Insulin LISPRO* 1 UNITS UNIT SUBCUT SCH ×3 (08:54→17:53)
--- NOTE | 2017-10-28 14:33 | PN ---
Subjective Date of Service: 10/28/17 Interval History: Pt examined today at the bedside. Pt states that he is feeling better he denies chest pain and denies abdominal pain. Denies nausea and denies vomiting. States he is voiding. ROS-denies fever, denies chills, denies abdominal pain, denies nausea, denies vomiting, denies lightheadedness, denies loc, denies chest pain, denies sob, review of 11 systems completed all others negative, Objective Active Medications: Acetaminophen (Tylenol Tab*) 650 mg PO Q4H PRN PRN Reason: FEVER/PAIN Albuterol (Ventolin Hfa Inhaler*) 2 puff INH Q4H PRN PRN Reason: SOB/WHEEZING Alprazolam (Xanax Tab*) 0.5 mg PO QID PRN PRN Reason: ANXIETY Last Admin: 10/27/17 21:41 Dose: 0.5 mg Amlodipine Besylate (Norvasc Tab*) 5 mg PO DAILY [facility] Last Admin: 10/28/17 08:53 Dose: 5 mg Aspirin (Aspirin Ec Low Dose*) [facility] Last Admin: 10/28/17 08:53 Dose: 81 mg Atorvastatin Calcium (Lipitor*) 80 mg PO 1700 [facility] Last Admin: 10/27/17 17:06 Dose: 80 mg Dextrose (D50w Syringe 50 Ml*) 12.5 gm IV PUSH .FOR FS < 60 - SS PRN PRN Reason: FS < 60 Ferrous Sulfate (Ferrous Sulfate Tab*) [facility] Last Admin: 10/28/17 08:53 Dose: 325 mg Gabapentin (Neurontin Cap(*)) 300 mg PO QID [facility] Last Admin: 10/28/17 13:41 Dose: 300 mg Heparin Sodium (Porcine) (Heparin Vial(*)) 5,000 units SUBCUT Q8HR [facility] Last Admin: 10/28/17 13:38 Dose: 5,000 units Insulin Glargine (Lantus(*)) 48 units SUBCUT QPM [facility] Last Admin: 10/27/17 18:07 Dose: 48 units Insulin Human Lispro (Humalog*) 0 units SUBCUT AC [facility] PRN Reason: Protocol Last Admin: 10/28/17 13:38 Dose: 3 unit Isosorbide Mononitrate (Imdur Er Tab*) 120 mg PO [facility] Last Admin: 10/28/17 08:54 Dose: 120 mg Metoprolol Succinate (Toprol Xl Tab*) 50 mg PO BID [facility] Last Admin: 10/28/17 08:53 Dose: 50 mg Morphine Sulfate (Morphine Inj (Syringe)*) 4 mg IV Q4H PRN PRN Reason: PAIN Last Admin: 10/26/17 23:39 Dose: 4 mg Multivitamins/Minerals (Theragran/Minerals Tab*) 1 tab PO QAM [facility] Last Admin: 10/28/17 08:53 Dose: 1 tab Omeprazole (Prilosec Cap*) 40 mg PO DAILY [facility] Last Admin: 10/28/17 08:53 Dose: 40 mg Ondansetron HCl (Zofran Inj*) 4 mg IV Q6H PRN PRN Reason: NAUSEA Oxycodone/Acetaminophen (Percocet 5/325 Tab*) 1 tab PO Q4H PRN PRN Reason: PAIN Last Admin: 10/27/17 21:32 Dose: 1 tab Tiotropium [place] (Spiriva Cap.Inh*) [facility] Last Admin: 10/28/17 08:15 Dose: 1 cap Vital Signs - 8 hr 10/28/17 10/28/17 10/28/17 07:24 08:00 08:15 Temperature 97.5 F Pulse Rate 58 66 Respiratory 18 18 16 Rate Blood Pressure 144/81 (mmHg) O2 Sat by Pulse 98 98 Oximetry 10/28/17 10/28/17 10/28/17 08:53 12:32 13:41 Temperature 97.2 F Pulse Rate 61 Respiratory 18 20 16 Rate Blood Pressure 130/74 (mmHg) O2 Sat by Pulse 95 Oximetry Oxygen Devices in Use Now: None Appearance: 67 y/o male patietn NAD, sitting in chair Eyes: No Scleral Icterus, PERRLA Ears/Nose/Mouth/Throat: NL Teeth, Lips, Gums Neck: NL Appearance and Movements; NL JVP Respiratory: Symmetrical Chest Expansion and Respiratory Effort, Clear to Auscultation Cardiovascular: NL Sounds; No Murmurs; No JVD Abdominal: NL Sounds; No Tenderness; No Distention Extremities: No Edema Skin: No Rash or Ulcers Neurological: Alert and Oriented x 3, NL Muscle Strength and Tone Lines/Tubes/Other Access: Clean, Dry and Intact Peripheral IV Result Diagrams: 10/28/17 05:02 10/28/17 05:02 Additional Lab and Data: Lab Results 10/26/17 10/26/17 10/26/17 Range/Units 11:47 11:47 11:47 WBC 9.2 (3.5-10.8) 10^3/ul RBC 3.78 L (4.0-5.4) 10^6/ul Hgb 11.9 L (14.0-18.0) g/dl Hct 35 L (42-52) % MCV 94 (80-94) fL MCH 32 H (27-31) pg MCHC 34 (31-36) g/dl RDW 17 H (10.5-15) % Plt Count 237 (150-450) 10^3/ul MPV 7 L (7.4-10.4) um3 Neut % (Auto) 72.4 (38-83) % Lymph % (Auto) 18.4 L (25-47) % [place] % (Auto) 5.9 (1-9) % Eos % (Auto) 2.5 (0-6) % Baso % (Auto) 0.8 (0-2) % Absolute Neuts (auto) 6.6 (1.5-7.7) 10^3/ul Absolute Lymphs (auto) 1.7 (1.0-4.8) 10^3/ul Absolute Monos (auto) 0.5 (0-0.8) 10^3/ul Absolute Eos (auto) 0.2 (0-0.6) 10^3/ul Absolute Basos (auto) 0.1 (0-0.2) 10^3/ul Absolute Nucleated RBC 0 10^3/ul Nucleated RBC % 0 Sodium 135 (133-145) mmol/L Potassium 4.0 (3.5-5.0) mmol/L Chloride 100 L (101-111) mmol/L Carbon Dioxide 27 (22-32) mmol/L Anion Gap 8 (2-11) mmol/L BUN 20 (6-24) mg/dL Creatinine 1.77 H (0.67-1.17) mg/dL Est GFR ( Amer) 49.6 (>60) Est GFR (Non-Af Amer) 38.6 (>60) BUN/Creatinine Ratio 11.3 (8-20) Glucose 153 H (70-100) mg/dL Lactic Acid 1.3 (0.5-2.0) mmol/L Calcium 9.5 (8.6-10.3) mg/dL Total Bilirubin 0.80 (0.2-1.0) mg/dL AST 14 (13-39) U/L ALT 15 (7-52) U/L Alkaline Phosphatase 70 (34-104) U/L Lactate Dehydrogenase 219 (140-271) U/L C-Reactive Protein 59.36 H (< 5.00) mg/L Total Protein 7.8 (6.4-8.9) g/dL Albumin 4.0 (3.2-5.2) g/dL Globulin 3.8 (2-4) g/dL Albumin/Globulin Ratio 1.1 (1-3) Lipase 11 (11.0-82.0) U/L Urine Color Urine Appearance Urine pH (5-9) Ur Specific [place] (1.010-1.030) Urine Protein (Negative) Urine Ketones (Negative) Urine Blood (Negative) Urine Nitrate (Negative) Urine Bilirubin (Negative) Urine Urobilinogen (Negative) Ur Leukocyte Esterase (Negative) Urine WBC (Auto) (Absent) Urine RBC (Auto) (Absent) Urine Bacteria (Absent) Urine Glucose (Negative) Urine Ascorbic Acid (Negative) 10/26/17 Range/Units 13:55 WBC (3.5-10.8) 10^3/ul RBC (4.0-5.4) 10^6/ul Hgb (14.0-18.0) g/dl Hct (42-52) % MCV (80-94) fL MCH (27-31) pg MCHC (31-36) g/dl RDW (10.5-15) % Plt Count (150-450) 10^3/ul MPV (7.4-10.4) um3 Neut % (Auto) (38-83) % Lymph % (Auto) (25-47) % [place] % (Auto) (1-9) % Eos % (Auto) (0-6) % Baso % (Auto) (0-2) % Absolute Neuts (auto) (1.5-7.7) 10^3/ul Absolute Lymphs (auto) (1.0-4.8) 10^3/ul Absolute Monos (auto) (0-0.8) 10^3/ul Absolute Eos (auto) (0-0.6) 10^3/ul Absolute Basos (auto) (0-0.2) 10^3/ul Absolute Nucleated RBC 10^3/ul Nucleated RBC % Sodium (133-145) mmol/L Potassium (3.5-5.0) mmol/L Chloride (101-111) mmol/L Carbon Dioxide (22-32) mmol/L Anion Gap (2-11) mmol/L BUN (6-24) mg/dL Creatinine (0.67-1.17) mg/dL Est GFR ( Amer) (>60) Est GFR (Non-Af Amer) (>60) BUN/Creatinine Ratio (8-20) Glucose (70-100) mg/dL Lactic Acid (0.5-2.0) mmol/L Calcium (8.6-10.3) mg/dL Total Bilirubin (0.2-1.0) mg/dL AST (13-39) U/L ALT (7-52) U/L Alkaline Phosphatase (34-104) U/L Lactate Dehydrogenase (140-271) U/L C-Reactive Protein (< 5.00) mg/L Total Protein (6.4-8.9) g/dL Albumin (3.2-5.2) g/dL Globulin (2-4) g/dL Albumin/Globulin Ratio (1-3) Lipase (11.0-82.0) U/L Urine Color Avril Urine Appearance Cloudy Urine pH 6.0 (5-9) Ur Specific [place] 1.018 (1.010-1.030) Urine Protein 2+(100 mg/dl) H (Negative) Urine Ketones Negative (Negative) Urine Blood Negative (Negative) Urine Nitrate Negative (Negative) Urine Bilirubin Negative (Negative) Urine Urobilinogen Negative (Negative) Ur Leukocyte Esterase Negative (Negative) Urine WBC (Auto) Trace(0-5/hpf) (Absent) Urine RBC (Auto) 1+(3-5/hpf) H (Absent) Urine Bacteria Absent (Absent) Urine Glucose 1+(50 mg/dl) H (Negative) Urine Ascorbic Acid * H (Negative) Microbiology and Other Data: Microbiology 10/26/17 18:35 Aerobic Blood Culture - Preliminary Blood Venous No Growth Day 1 Anaerobic Blood Culture - Preliminary No Growth Day 1 10/26/17 18:35 Aerobic Blood Culture - Preliminary Blood Venous No Growth Day 1 Anaerobic Blood Culture - Preliminary No Growth Day 1 Assess/Plan/Problems-Billing Assessment: 67 y/o male patient [place] [facility] [place] of left flank pain, found to have bilateral renal infarcts, - Patient Problems (1) CAD (coronary artery disease) Current Visit: Yes Status: Acute Priority: High Comment: No reports of chest pain, or sob, on asa stain and beta, nitrates, follows with Dr aleman, (2) HTN (hypertension) Current Visit: Yes Status: Acute Priority: High Comment: Blood pressure stable, continue PO meds, (3) HLD (hyperlipidemia) Current Visit: Yes Status: Acute Priority: High Comment: Increased statin 80 mg, (4) Tremor Current Visit: Yes Status: Acute Priority: High Comment: Not active, no tremor seen (5) Diabetes Current Visit: Yes Status: Acute Priority: High Comment: COnintue sliding scale, glucose stable continue lantus, (6) RADU (obstructive sleep apnea) Current Visit: Yes Status: Acute Priority: High Comment: 02 at night, (7) GERD (gastroesophageal reflux disease) Current Visit: Yes Status: Acute Priority: High Comment: PPI no reports of epigastric pain (8) Melanoma Current Visit: Yes Status: Acute Priority: High Comment: not active follows with Dr Loya, (9) Multiple myeloma Current Visit: Yes Status: Acute Priority: High Comment: in remission, follows with Dr Loya, (10) Depression with anxiety Current Visit: Yes Status: Acute Priority: High Comment: Supportive Care, (11) DVT prophylaxis Current Visit: Yes Status: Acute Priority: High Comment: heparin sub q (12) FEN Current Visit: Yes Status: Acute Priority: High Comment: Consistent Carb diet, (13) Full code status Current Visit: Yes Status: Acute Priority: High (14) Renal infarct Current Visit: Yes Status: Acute Priority: High Comment: Creatitine 2.1 today, etiology unclear but most likely arthoembolic disease, statin increased, will need BP control and DM control, on asa, Dr ibarra to see, echo pending dvt studies pending, hypercoaug work up sent given hx of CA, Dr Loya seeing as well , pain improved, echo done today await report, plan for FENA, renal u/s, check urine protien and check bladder scan, hold nephrotoxic agents, (15) Hypoxia Current Visit: Yes Status: Acute Priority: High Comment: Etiology unclear , less likley PE as ddimer 200, checking u/s lower exts, would hold on cta given renal infarct, not tachy and no reports of sob, states he wears o2 at night and his o2 sats are low at baseline, CXR stable on RA today 95 percent Status and Disposition: Home when stable await input from nephrology,
--- NOTE | 2017-10-28 15:49 | ECHO ---
Patient: MAURICE WEBER [facility] Rec#: [id number] : 1950 Date: 10/28/2017 Age: 67y Height: 165.1 cm / 65.0 in Weight: 112.49 kg / 247.9 lbs Sex: M BSA: 2.17 Room#: 438 Admit Date#: 10/26/2017 Type: Inpatient Referring: Amarjit Huynh NP Reading: Jaya Hansen MD Tree Farmer: Radha Sparks RDCS Transthoracic Echocardiogram Indication: Renal infarction, CAD BP: 153/74 HR: 70 Rhythm: NSR with PVCs Findings History: CAD, HTN, tremors, DM, RADU, GERD, melanoma, renal mass, nephrolithiasis, bells palsy, multiple myeloma. Technical Comments: The study quality is fair. The study is technically limited due to poor apical windows. The study is technically limited due to patient body habitus. Completed at 1300. Left Ventricle: The left ventricular chamber size is normal. Moderate concentric left ventricular hypertrophy is observed. Global left ventricular wall motion and contractility are within normal limits. There is normal left ventricular systolic function. The estimated ejection fraction is 55-60%. There is no consistent Doppler evidence of clinically significant diastolic dysfunction. Left Atrium: The left atrium is severely dilated. Right Ventricle: The right ventricular cavity size is normal. The right ventricular global systolic function is normal. Right Atrium: The right atrium is moderately dilated. Interatrial septum appears intact without evidence of shunting. The bubble study is negative. A patent foramen ovale is not demonstrated with color Doppler and agitated contrast. Aortic Valve: The aortic valve is trileaflet. The aortic valve leaflets are mildly thickened. There is a trace of aortic regurgitation. There is no evidence of aortic stenosis. Mitral Valve: There is mitral annular calcification. The mitral valve leaflets are moderately thickened. There is trace to mild mitral regurgitation. There is no evidence of mitral stenosis. Tricuspid Valve: The tricuspid valve leaflets are mildly thickened. There is trace tricuspid regurgitation. The right ventricular systolic pressure is estimated at 24 mmHg. No pulmonary hypertension is noted. There is no tricuspid stenosis. Pulmonic Valve: The pulmonic valve appears normal. There is a trace pulmonic regurgitation. There is no pulmonic stenosis. Pericardium: There is no significant pericardial effusion. A pericardial fat pad is visualized. Aorta: There is mild dilatation of the ascending aorta. There is no dilatation of the aortic arch. There is moderate dilatation of the aortic root. Pulmonary Artery: The main pulmonary artery is not well visualized. Venous: The inferior vena cava appears normal in size. There is a greater than 50% respiratory change in the inferior vena cava dimension. Contrast: Normal saline was used as contrast for the bubble study. Images 1 and 2. Intravenous contrast was used to help determine presence of intracardiac shunting. Conclusions Moderate concentric left ventricular hypertrophy is observed. Global left ventricular wall motion and contractility are within normal limits. The estimated ejection fraction is 55-60%. The right ventricular global systolic function is normal. Interatrial septum appears intact without evidence of shunting. A patent foramen ovale is not demonstrated with color Doppler and agitated contrast. There is a trace of aortic regurgitation. There is trace to mild mitral regurgitation. There is trace tricuspid regurgitation. The right ventricular systolic pressure is estimated at 24 mmHg. There is no significant pericardial effusion. Measurements Name Value Normal Range RVIDd (AP) 2D 3.5 cm (0.9 - 2.6) RVDdMajor (2D) 4.3 cm (2.2 - 4.4) RAd ISD 4CH 6.2 cm (3.4 - 4.9) RA (A4C)W 4.6 cm (2.9 - 4.6) IVSd (2D) 1.5 cm (0.6 - 1) LVPWd (2D) 1.4 cm (0.6 - 1) LVIDd (2D) 4.6 cm (3.6 - 5.4) LVIDs (2D) 3.7 cm - LV FS (2D) 20 % (25 - 45) Aortic Annulus 1.8 cm (1.4 - 2.6) Ao root diameter (2D) 4.1 cm (2.1 - 3.5) Ascending Ao 3.7 cm (2.1 - 3.4) Aortic arch 2.5 cm (1.8 - 3.4) LA dimension (AP) 2D 4.2 cm (2.3 - 3.8) LAd ISD 4CH 5.7 cm (2.9 - 5.3) LA ISD 4CH W 4.9 cm (2.5 - 4.5) Name Value Normal Range LA ESV SP 4CH (A/L) 90 ml - LA ESV SP 2CH (A/L) 109 ml - LA ESV BP (A/L) 105 ml - LA ESV BP (A/L) index 48.55 ml/m2 - LA ESV SP 4CH (MOD) 83 ml - LA ESV SP 2CH (MOD) 101 ml - Name Value Normal Range MV E-wave Vmax 0.99 m/sec - MV deceleration time 189 msec - MV A-wave Vmax 0.52 m/sec - MV E:A ratio 1.9 ratio - LV septal e' Vmax 0.07 m/sec - LV lateral e' Vmax 0.1 m/sec - LV E:e' septal ratio 14.14 ratio - LV E:e' lateral ratio 9.9 ratio - Name Value Normal Range AV Vmax 1.22 m/sec - AV VTI 26.28 cm - AV peak gradient 6.03 mmHg - AV mean gradient 3.27 mmHg - LVOT Vmax 0.99 m/sec - LVOT VTI 22.07 cm - LVOT peak gradient 3.91 mmHg - LVOT mean gradient 2.03 mmHg - DOMINICK Vmax 0.88 m/sec - Name Value Normal Range TR Vmax 2.3 m/sec - TR peak gradient 21 mmHg - RAP 3 mmHg - RVSP 24 mmHg - IVC diameter 1.6 cm - Name Value Normal Range PV Vmax 0.73 m/sec - PV peak gradient 2.16 mmHg -
--- NOTE | 2017-10-28 16:36 | RAD ---
INDICATION: Renal infarcts. COMPARISON: Comparison is made with a prior CT of the abdomen and pelvis from October 26, 2017. TECHNIQUE: Multiple real-time images of the kidneys were obtained. FINDINGS: The kidneys are normal in size shape and echogenicity. The right kidney measured 11.4 x 5.6 x 7.1 cm and the left kidney measured 11.3 x 5.5 x 6.1 cm. No hydronephrosis is seen. No focal abnormality is seen to correlate with the areas of decreased attenuation within the kidneys noted on the prior CT study. IMPRESSION: NEGATIVE EXAM.
[2017-10-28] MEDS: Atorvastatin* 80 MG TAB PO SCH (17:49)
[2017-10-28] MEDS: Insulin GLARGINE(*) 1 UNITS UNIT SUBCUT SCH (17:51)
[2017-10-28 17:58] LABS: Urine Appearance Cloudy; Urine Blood Negative (Negative); Urine Color Yellow; Urine Ketones Negative (Negative); Urine Protein 2+(100 mg/dL) (Negative); Urine Urobilinogen Negative (Negative)
[2017-10-29 05:43] LABS: ABS Basophils 0 10^3/ul (0-0.2); ABS Eosinophils 0.3 10^3/ul (0-0.6); ABS Lymphocytes 1.5 10^3/ul (1.0-4.8); ABS Monocytes 0.5 10^3/ul (0-0.8); ABS Neutrophils 4.5 10^3/ul (1.5-7.7); ABS Nucleated RBC 0 10^3/ul; Hematocrit 27 % (42-52); Hemoglobin 9.4 g/dl (14.0-18.0); Lymphocyte % 22.4 % (25-47); Mean Corpuscular HGB Conc 34 g/dl (31-36); Mean Corpuscular Hemoglobin 32 pg (27-31); Mean Corpuscular Volume 92 fL (80-94); Mean Platelet Volume 7 um3 (7.4-10.4); Nucleated Red Blood Cells % 0; Platelet Count 188 10^3/ul (150-450); Red Blood Count 2.99 10^6/ul (4.0-5.4); Red Cell Distribution Width 18 % (10.5-15); White Blood Count 6.8 10^3/ul (3.5-10.8)
[2017-10-29 05:58] LABS: EGFR Non-African American 33.5 (>60)
[2017-10-29] MEDS: Heparin VIAL(*) 5000 UNITS/ML VIAL (FIVE THOUSAND) SUBCUT SCH (06:05)
[2017-10-29 08:21] VITALS: BP 148/64
[2017-10-29] MEDS: Tiotropium CAP.INH* CAP.INH/18 MCG (USE ORDER SET !) INH SCH (08:24)
[2017-10-29] MEDS: Ferrous Sulfate TAB* 325 MG PO SCH (09:04)
[2017-10-29] MEDS: Gabapentin CAP(*) 300 MG PO SCH (09:04)
[2017-10-29] MEDS: Isosorbide Mononitrate ER TAB* 60 MG PO SCH (09:04)
[2017-10-29] MEDS: Metoprolol Succinate XL TAB* 50 MG PO SCH (09:04)
[2017-10-29] MEDS: Multivitamins/Minerals TAB PO SCH (09:04)
[2017-10-29] MEDS: Omeprazole CAP* 20 MG PO SCH (09:04)
[2017-10-29] MEDS: Aspirin EC Low Dose* 81 MG TAB.EC PO SCH (09:04)
[2017-10-29] MEDS: amLODIPine TAB* 5 MG PO SCH (09:04)
[2017-10-29] MEDS: Insulin LISPRO* 1 UNITS UNIT SUBCUT SCH (09:05)
--- NOTE | 2017-10-30 05:44 | DS ---
CC: Aditya Weston NP; Dr. Craven; Dr. Loya * DISCHARGE SUMMARY: DATE OF ADMISSION: 10/26/17 DATE OF DISCHARGE: 10/29/17 PRIMARY CARE PROVIDER: Aditya Weston NP ATTENDING PHYSICIAN WHILE IN THE HOSPITAL: Jericho Schwarz MD * (report dictated by Amarjit Huynh NP). CONSULTING POLICY INTERN: Dr. Craven. CONSULTING BILL DISTRIBUTOR: Dr. Loya. PRINCIPAL DIAGNOSIS: Include renal infarct. SECONDARY DIAGNOSES: Include: 1. Coronary artery disease. 2. Hypertension. 3. Tremors. 4. Diabetes. 5. Obstructive sleep apnea. 6. Gastroesophageal reflux disease. 7. Melanoma. 8. Multiple myeloma. 9. Rehman's palsy. 10. Anxiety. 11. Depression. 12. Renal mass. DISCHARGE MEDICATIONS: Include new medications: 1. Atorvastatin 80 mg p.o. daily. 2. Amlodipine 5 mg daily. 3. Prilosec 40 mg daily. 4. Vitamin D 1000 units p.o. daily. 5. Acyclovir 400 mg p.o. b.i.d. as needed. 6. Triamcinolone cream 1 application topically daily as needed. 7. Metoprolol 50 mg p.o. b.i.d. 8. Gabapentin 300 mg p.o. q.i.d. 9. Nitro 0.4 mg sublingual q.5 minutes p.r.n. chest pain x3. 10. Ferrous sulfate 325 mg p.o. daily. 11. Aspirin 81 mg daily. 12. ProAir 2 puffs inhaled every 4 hours as needed. 13. Spiriva 1 capsule inhaled daily. 14. Imdur 120 mg p.o. daily. 15. Lantus 48 units subcu q.p.m. 16. Xanax 1 to 2 tablets every 6 hours as needed. 17. Multivitamin 1 tablet daily. 18. Metformin 500 mg p.o. b.i.d. 19. Insulin 70/30, 45 units in the morning and 30 units b.i.d. 20. Lipitor 80 mg daily. HISTORY OF PRESENT ILLNESS: I will refer you to my H and P dictated on the for details, but in short, Mr. Loaiza is a 67-year-old male patient that presented to the emergency department today on the with complaints of abdominal pain, starting initially epigastric, right upper quadrant and then settled into his left flank. He said the pain was getting more severe. He had no fevers, chills, dysuria, or frequency. He had no vomiting or diarrhea associated. He was concerned and came into the ED. Ultimately, CT scan was concerning for either bilateral pyelonephritis or bilateral renal infarcts. At that point, we were asked to evaluate for admission. He was admitted. I touched base with Dr. Craven. I touched base with Dr. Loya. We initially send him for hypercoagulable workup which is pending, but his LDH never spiked, which was odd in the setting of a renal infarct. His pain went away throughout the hospital stay and got better and better each day. He had an echo with a bubble study that showed no PFO. Ultrasound of the lower extremities at that point were held because it was a negative D-dimer. It was felt that him having a clot in the lower extremities and it going over to the arterial circulation would be unlikely. Working diagnosis is may be he had a plaque rupture as a CT of the aorta, did show some significant plaques. 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 He did have a couple of episodes when it was in the 88% to 89%, but his stats now are 95% on room air. He had a chest x-ray, which was negative. I did repeat the renal cell ultrasound yesterday as his creatinine did bumped just a little bit to 2.1 from 1.8 and it was a negative exam. There was no hydronephrosis. He was urinating. He had no issues there. He had no reports of tarry black, melanotic stools. Today he was evaluated. He said his pain was gone and he wanted to go home. He denied having any chest pain or shortness of breath, said he was feeling well and again he was urinating. It was noted that his H and H did drop a little bit, one from 10.2 on the first day of admission to 9.4 today. I did send off some iron studies as he does have a history of anemia in the past. He is to follow with Dr. Loya for this and Aditya Weston. The patient again will be discharged home. CONDITION ON DISCHARGE: Stable. STATUS DURING HOSPITALIZATION: Inpatient. PHYSICAL EXAM ON DISCHARGE: Vital Signs: Blood pressure 148/64, pulse 61, respirations 16, O2 sat 92% on room air, temperature 98.4. General: At this time, Mr. Loaiza is a 67-year-old male pain. He is sitting in the hospital bed. He is awake. He is alert. He is oriented x3. He had no gross focal deficits. His skin was intact. HEENT: Head: Atraumatic, normocephalic. Eyes : EOMs intact. Sclerae anicteric and not pale. Neck: Supple. Throat: Oral mucosa appears to be moist. No oropharyngeal erythema. Heart: Sounds S1, S2. Regular rate and rhythm. No murmurs, rubs, or gallops. Lungs: Clear to auscultation bilaterally. No wheezing, rales, or rhonchi. Abdomen is soft, flat , nontender. Bowel sounds are present. Extremities: Pulses are 2+ throughout. Neurologically, he is awake, alert, oriented x3. No gross focal deficits. Skin: Intact. DIAGNOSTIC STUDIES/LAB DATA: WBC today 6.8, RBC of 2.99, hemoglobin 9.4, hematocrit 27, platelet count 188. His D-dimer was 200. His sodium was 136; potassium of 4; chloride of 104; bicarb 27; BUN was 30; creatinine was 2, his baseline is 1.8; his glucose was 171; calcium 8.4. Urine was again negative. He did have a renal ultrasound done yesterday, which showed negative exam. He had a chest x-ray obtained on the , which showed no evidence for acute disease. He got a CT abdomen and pelvis done on the , which showed perinephric inflammatory change on the right with mild hypoattenuation of the upper pole of the right kidney. There is focal hypoattenuation of the left kidney. Differential includes multifocal pyelonephritis or bilateral renal infarcts. Fatty infiltration of the liver, atherosclerosis. He did have an echo done on Sunday, the , impression: EF of 55% to 60%. He had PFO, has not demonstrated with color Doppler and agitated contrast. Intraarterial septum appears intact without evidence of shunting. Again, he had no signs of AFib on tele. This is a complex medical case, I refer you to the medical chart for details. ISSUES TO BE ADDRESSED ON FOLLOWUP: 1. Renal infarcts. Again, at this point the etiology is unclear. He is to follow up with Dr. Craven. At this point, we will increase his statin up to 80 mg. We will go ahead and continue aspirin therapy. There was concern that he may have had a ruptured plaque, but again will not a bump as this seems highly unlikely. I did send off hypercoagulable workup which is pending at the time of dictation along with anemia studies, which is pending at the time of dictation and he can follow with his primary for this and Dr. Loya. As I did touch base with Dr. Loya, his office will be reaching out and Dr. Craven did state that to have the patient call his office for an appointment. 2. CAD. Follow with Dr. Malone. Continue with aggressive lifestyle modifications. In addition to this, continue his beta-angel, aspirin and statin therapy and nitrates. 3. History of anemia. Again, his H and H was slightly lower than baseline here today. I did send off some anemia or studies of the iron panels and B12 panels. Follow with primary for this. 4. Hypertension. Continue meds as prescribed. 5. Tremors, not an active issue currently and follow up with primary. 6. Diabetes. Continue meds as prescribed. His blood sugars are controlled here. 7. Obstructive sleep apnea. Continue his current medical regimen. 8. GERD. Continue PPI therapy. 9. History of melanoma and multiple myeloma. Follow up with Dr. Loya. 10. History of anxiety and depression. Continue meds as prescribed. 11. Issues to return to the hospital include, but not limited to chest pain, shortness of breath, fevers, chills, nausea, vomiting, chest pain, shortness of breath, or any other worrisome symptoms. TIME SPENT: On the discharge was approximately 40 minutes, greater than half the time spent going over the plan of care with the patient, another half time was spent on implementing the discharge plan. I did discuss the discharge plan with my attending, Dr. Schwarz; he is in agreement. AMARJIT HUYNH NP [id number]/[facility] #: [id number] CAM
[2017-10-30 17:24] LABS: Prothrombin 20210 Mutation Negative (Negative)
== END 2017-10-29 11:50 | disposition home or self-care (01) | DRG 468 ==
LOC: ED 10:44 → MEDTELE 16:43
PROVIDERS: ADMIT Internal Medicine; ATTEND Internal Medicine
DX: N28.0 Ischemia and infarction of kidney (principal); C90.00 Multiple myeloma not having achieved remission; E11.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mellitus with diabetic chronic kidney disease; Z94.84 Stem cells transplant status; Q21.1 Atrial septal defect; I25.10 Atherosclerotic heart disease of native coronary artery without angina pectoris; K21.9 Gastro-esophageal reflux disease without esophagitis; G47.33 Obstructive sleep apnea (adult) (pediatric); E78.5 Hyperlipidemia, unspecified; J45.909 Unspecified asthma, uncomplicated; M19.90 Unspecified osteoarthritis, unspecified site; G51.0 Bell's palsy; R25.1 Tremor, unspecified; I70.0 Atherosclerosis of aorta; I12.9 Hypertensive chronic kidney disease with stage 1 through stage 4 chronic kidney disease, or unspecified chronic kidney disease; N18.9 Chronic kidney disease, unspecified; F41.8 Other specified anxiety disorders; R09.02 Hypoxemia; K76.0 Fatty (change of) liver, not elsewhere classified; N28.89 Other specified disorders of kidney and ureter; D64.9 Anemia, unspecified; Z88.1 Allergy status to other antibiotic agents; Z88.8 Allergy status to other drugs, medicaments and biological substances; Z95.5 Presence of coronary angioplasty implant and graft; Z79.82 Long term (current) use of aspirin; Z87.442 Personal history of urinary calculi; Z85.820 Personal history of malignant melanoma of skin; Z86.19 Personal history of other infectious and parasitic diseases; Z98.42 Cataract extraction status, left eye; Z98.41 Cataract extraction status, right eye; Z82.49 Family history of ischemic heart disease and other diseases of the circulatory system; Z83.3 Family history of diabetes mellitus; Z87.891 Personal history of nicotine dependence; Z79.4 Long term (current) use of insulin
CPT/HCPCS: 36415; 71046; 74177; 76775; 80048; 80053; 81003; 81015; 81240; 81241; 82570; 82607; 82728; 82746; 82784; 83090; 83540; 83550; 83605; 83615; 83690; 83883; 83921; 84155; 84156; 84165; 84300; 84466; 85025; 85300; 85303; 85306; 85307; 85379; 85610; 85613; 85730; 86140; 86147; 87040; 87086; 93306; 94640; 94760; 99232; A9270-GY; J1644; J2270; J2405; Q9967

== ENCOUNTER 2018-01-30 06:13 | Inpatient (IN) | payer BC ==
[2018-01-30] MEDS ORDERED: Furosemide IV* 10 MG/ML VIAL (40 MG) IV SLOW PU ONE (07:01)
[2018-01-30 07:04] LABS: ABS Basophils 0.1 10^3/ul (0-0.2); ABS Eosinophils 0.2 10^3/ul (0-0.6); ABS Lymphocytes 1.5 10^3/ul (1.0-4.8); ABS Monocytes 0.5 10^3/ul (0-0.8); ABS Nucleated RBC 0 10^3/ul; Eosinophil % 2.8 % (0-6); Hematocrit 28 % (42-52); Hemoglobin 9.5 g/dl (14.0-18.0); Lymphocyte % 17.8 % (25-47); Mean Corpuscular HGB Conc 34 g/dl (31-36); Mean Corpuscular Hemoglobin 31 pg (27-31); Mean Corpuscular Volume 91 fL (80-94); Mean Platelet Volume 6.5 um3 (7.4-10.4); Nucleated Red Blood Cells % 0; Platelet Count 198 10^3/ul (150-450); Red Blood Count 3.09 10^6/ul (4.0-5.4); Red Cell Distribution Width 20 % (10.5-15); White Blood Count 8.4 10^3/ul (3.5-10.8)
--- NOTE | 2018-01-30 07:05 | ED ---
Samira Almodovar Abhishek, scribed for Tenzin Daniels MD on 01/30/18 at 0653 . Shortness of Breath - HPI Summary HPI Summary: PT is a 67 y/o male BIBA in ALS to the [facility] with a chief complaint of SOB The pt reports indigestion, and slight chest pain. The pt states uses oxygen only at HS but otherwise has no other respiratory issues. Currently, pt has no pain and rates the severity as a 0/10. Symptoms are aggravated by nothing and symptoms are alleviated by nothing. - History of Current Complaint Chief Complaint: EDShortnessOfBreath Time Seen by Provider: 01/30/18 06:28 Hx Obtained From: Patient, EMS Onset/Duration: Sudden Onset, Still Present Associated Signs & Symptoms: Chest Pain Unrelated to Cough - Allergy/Home Medications Allergies/Adverse Reactions: Allergies Allergy/AdvReac Type Severity Reaction Status Date / Time amoxicillin Allergy Diarrhea Verified 01/30/18 06:38 clavulanic acid Allergy Unknown Verified 01/30/18 06:38 Reaction Details PMH/Surg Hx/FS Hx/Imm Hx Endocrine/Hematology History: Reports: Hx Diabetes - INSULIN and metformin, Hx Anemia, Other Endocrine/Hematological Disorders Cardiovascular History: Reports: Hx Angina, Hx Coronary Artery Disease, Hx Hypercholesterolemia, Hx Hypertension, Other Cardiovascular Problems/Disorders - 3 stents Denies: Hx Cardiac Arrest, Hx Myocardial Infarction, Hx Pacemaker/ICD, Hx Valvular Heart Disease Respiratory History: Reports: Hx Asthma - possible, Hx Seasonal Allergies, Hx Sleep Apnea Denies: Hx Chronic Obstructive Pulmonary Disease (COPD) - possible, Other Respiratory Problems/Disorders - DENIES GI History: Reports: Hx Gastroesophageal Reflux Disease, Other GI Disorders - GERD/HX OD PANCREATITIS History: Reports: Hx Kidney Stones - many years ago Denies: Hx Renal Disease Comment Only: Other Problems/Disorders - benign growth on L kidney Musculoskeletal History: Reports: Hx Arthritis, Hx Back Problems - arthritis Sensory History: Reports: Hx Contacts or Glasses Denies: Hx Cataracts - lens implants, Hx Hearing Aid Opthamlomology History: Reports: Hx Contacts or Glasses Denies: Hx Cataracts - lens implants Neurological History: Reports: Other Neuro Impairments/Disorders - numbness R hand, PAIN CLINIC PATIENT Psychiatric History: Reports: Hx Anxiety - with panic attacks, Hx Depression, Other Psychiatric Issues/Disorders - claustrophobia Denies: Hx Panic Disorder - Cancer History Cancer Type, Location and Year: 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 MULTIPLE Myeloma Hx Chemotherapy: Yes - Surgical History Surgery Procedure, Year, and Place: CAD - HEART STENT -, 09/2013. carpal tunnel /trigger finger surgery-BILATERAL HANDS. cataracts-BILATERAL. Rt AXILLA DISSECTION - REMOVED TUMOR-1977. Stem Cell Transplant, [facility] February 2016 Hx Anesthesia Reactions: No - Immunization History Date of Tetanus Vaccine: Unk Date of Influenza Vaccine: Fall 2012 Infectious Disease History: No Infectious Disease History: Reports: Hx Shingles - 10/2015 Denies: Hx Clostridium Difficile, Hx Hepatitis, Hx Human Immunodeficiency Virus (HIV), Hx of Known/Suspected MRSA, Hx Tuberculosis, Hx Known/Suspected VRE , Hx Known/Suspected VRSA, History Other Infectious Disease, Traveled Outside the [place] in Last 30 Days - Family History Known Family History: Positive: Cardiac Disease, Diabetes - Social History Alcohol Use: Rare Substance Use Type: Reports: None Hx Tobacco Use: Yes - PIPE AND OCCASSIONAL CIGAR Smoking Status (MU): Former Smoker Type: Cigarettes Amount Used/How Often: CIGARS AND PIPE 1-3 TIMES A WEEK WHILE GOLFING Length of Time of Smoking/Using Tobacco: went form about 1pck/d Cigarettes,to pipe occ cigar. Have You Smoked in the Last Year: No Review of Systems Constitutional: Negative Eyes: Negative ENT: Negative Positive: Chest Pain Positive: Shortness Of Breath Gastrointestinal: Other - Indigestion Genitourinary: Negative Musculoskeletal: Negative Skin: Negative Neurological: Negative Psychological: Normal All Other Systems Reviewed And Are Negative: Yes Physical Exam - Summary Physical Exam Summary: VITAL SIGNS: Reviewed. GENERAL: ~Patient is morbidly obese (MALE) who is lying comfortable in the stretcher. Patient is not in any acute respiratory distress. HEAD AND FACE: No signs of trauma. No ecchymosis, hematomas or skull depressions. No sinus tenderness. EYES: PERRLA, EOMI x 2, No injected conjunctiva, no nystagmus. EARS: Hearing grossly intact. Ear canals and tympanic membranes are within normal limits. MOUTH: Oropharynx within normal limits. NECK: Supple, trachea is midline, no adenopathy, no JVD, no carotid bruit, no c- spine tenderness, neck with full ROM. CHEST: Symmetric, no tenderness at palpation LUNGS: decrease breath sounds bilaterally CVS: Regular rate and rhythm, S1 and S2 present, no murmurs or gallops appreciated. ABDOMEN: Soft, non-tender. No signs of distention. No rebound no guarding, and no masses palpated. Bowel sounds are normal. EXTREMITIES: 2+ bilaterally pitting edema NEURO: Alert and oriented x 3. No acute neurological deficits. Speech is normal and follows commands. SKIN: Dry and warm Triage Information Reviewed: Yes Vital Signs On Initial Exam: Initial Vitals Temp Pulse Resp BP Pulse Ox 98.4 F 78 32 168/77 88 01/30/18 06:16 01/30/18 06:16 01/30/18 06:16 01/30/18 06:16 01/30/18 06:16 Vital Signs Reviewed: Yes Diagnostics - Vital Signs Vital Signs Temp Pulse Resp BP Pulse Ox 01/30/18 06:16 98.4 F 78 32 168/77 88 - Laboratory Lab Statement: Any lab studies that have been ordered have been reviewed, and results considered in the medical decision making process. - Radiology Chest X-ray Radiology Interpretation Completed By: ED Physician - Chest X-ray reveals bilateral interstitial infiltrate consistent with CHF as per ED physician. - EKG 0654 EKG Rhythm: Sinus Rhythm ST Segment: Normal - 71 bpm Course/Dx - Course Course Of Treatment: The pt is a 67 y/o male with a chief complaint of SOB. PT also reports of chest pain and indigestion. The pt will be signed out to Dr. Glez, pending lab work and imaging results as well as disposition. Dx will be difficulty breathing. - Diagnoses Provider Diagnoses: Difficulty breathing Discharge - Sign-Out/Discharge Documenting (check all that apply): Sign-Out Patient Signing out patient TO: Ahmet Glez - Discharge Plan Condition: Stable Discharge Disposition Comment: Signed out to Dr. Glez Referrals: Aditya Weston, HOG DROPPER [Primary Care Provider] - The documentation as recorded by the Samira mcfarland Abhishek accurately reflects the service I personally performed and the decisions made by me, Tenzin Daniels MD.
[2018-01-30 07:20] LABS: INR 0.87 (0.77-1.02)
[2018-01-30 07:22] LABS: EGFR Non-African American 24.7 (>60)
--- NOTE | 2018-01-30 07:46 | RAD ---
INDICATION: Abdominal pain and shortness of breath COMPARISON: Chest x-ray dated October 27, 2017 TECHNIQUE: PA and lateral views of the chest were obtained. FINDINGS: The heart and mediastinum are normal in size and contour. On the AP view there are increased reticular nodular densities overlying the bilateral lungs. The left lung base is obscured. On the lateral view this density is localized to the posterior deep tendon thorax. Visualized bones are normal for the patient's age. There is no radiographic evidence of free air beneath the diaphragm IMPRESSION: DEPENDING ON THE CLINICAL PRESENTATION, THE CHEST X-RAY FINDINGS COULD BE COMPATIBLE WITH VASCULAR CONGESTION WITH PLEURAL EFFUSION AT THE LEFT LUNG BASE. ALTERNATIVELY PNEUMONIA AT THE POSTERIOR LEFT LUNG BASE COULD ALSO BE CONSIDERED.
[2018-01-30] MEDS ORDERED: Enoxaparin(*) 100 MG/ML SYR SUBCUT ONE (10:14)
--- NOTE | 2018-01-30 11:24 | RAD ---
INDICATION: Shortness of breath. Comparison: Comparison is made with a prior chest x-ray study from January 30, 2018. Technique: The patient was given an intravenous injection of 11.5 mCi of xenon-133 via a rebreathing mask. The lungs were imaged in both the anterior and posterior projections. Subsequently, the patient received 6.2 mCi of technetium 99 MAA intravenously and the lungs were imaged in 8 projections. The ventilation images are limited. The patient was unable to take a good breath. FINDINGS: There is a small subsegmental perfusion defect present laterally toward the left lung base. There is also a small matched subsegmental defect present posteriorly at the right lung base There is otherwise relatively normal distribution of radiopharmaceutical on the perfusion images. The ventilation images are extremely limited. The chest x-ray study performed earlier today demonstrates diffuse interstitial infiltrates small bibasilar patchy infiltrates and small bilateral pleural effusions. IMPRESSION: LOW PROBABILITY FOR PULMONARY EMBOLISM.
[2018-01-30] MEDS ORDERED: Lidocaine PATCH 5%* 1 PATCH TRANSDERM PRN (12:10)
[2018-01-30] MEDS ORDERED: Albuterol HFA INHALER* 8 gm MDI INH PRN (12:10)
[2018-01-30] MEDS ORDERED: Ondansetron TAB* 4 MG PO PRN (12:10)
[2018-01-30] MEDS ORDERED: amLODIPine TAB* 5 MG PO ONE (12:12)
[2018-01-30] MEDS ORDERED: Dextrose 50% Syringe 50 ML* 25 GM/50 ML SYRINGE IV PUSH PRN (12:13)
[2018-01-30] MEDS ORDERED: Acetaminophen TAB* 325 MG PO PRN (12:15)
[2018-01-30] MEDS ORDERED: Lidocaine Patch REMOVE* 1 NOTE MISC PATCH OFF PRN (12:42)
[2018-01-30] MEDS: Isosorbide Mononitrate ER TAB* 60 MG PO SCH (14:23)
--- NOTE | 2018-01-30 16:19 | HP ---
CC: Aditya Weston NP; Dr. Loya; Dr. Craven * ADMISSION HISTORY AND PHYSICAL: DATE OF ADMISSION: 01/30/18 PRIMARY CARE PROVIDER: Aditya Weston NP INTRAMURAL DIRECTOR: Dr. Loya. MEDIUM CYCLE SALESPERSON: Dr. Craven. HEALTHCARE PROXY: His . CODE STATUS: Full. SOURCE OF INFORMATION: History obtained from interview with the patient and his , review of past medical records. RELIABILITY: From the patient and is fair. CHIEF COMPLAINT: Shortness of breath. HISTORY OF PRESENT ILLNESS: This is a 67-year-old man, with past medical history of CAD, status post 3 stents, last approximately 5 years prior to presentation; insulin-dependent diabetes mellitus; hypertension; RADU, not on CPAP; multiple myeloma, status post stem cell transplant, as well as diastolic heart dysfunction based on last left heart cath in September 2017, who had several weeks of headaches, saw his PCP 4 days prior to presentation, thought it was secondary to either sinus or ear infection, started on Bactrim. Approximately 1-1/2 weeks ago, he has had a GI illness, where he had had vertigo and a fall associated with profound nausea and vomiting. No diarrhea associated with subjective fevers that lasted for approximately 24 hours before resolving, after which his contracted the same illness. Since Sunday, he had been feeling better; however, day prior to presentation, he was downtown , walked upstairs and noticed increased shortness of breath as well as a substernal chest pain. He usually has anginal symptoms that are typical, substernal, lasting approximately 3 minutes, resolving with rest; however, this episode was described as a burning, aching and stabbing similar in character to previous pain; however, lasted there until the time he went to sleep. He noticed that his breathing became worse throughout the day and he woke up approximately 2:30 a.m. with shortness of breath and a cough. He tried to sit up and then his breathing was improved; however, he still had difficulty breathing. He had no chest pain at 02:30 when he woke up and no nausea or vomiting, his chest pain did not radiate, he had no diaphoresis. Because his breathing did not improve, he presented to the emergency room. He noticed no increased lower extremity swelling, orthopnea, or PND other than what was just described above. He noticed recent changes in medication include with the addition of Bactrim 4 days prior to presentation as well as the doubling of his dose of Toprol approximately 2 to 3 weeks prior to presentation by his plan nurse, Dr. Malone. He denies any recent travel and other sick contacts. PAST MEDICAL HISTORY: Includes: 1. CAD, status post multiple stents, last left heart cath September 2017 with decision to manage CAD medically at that time. 2. Hypertension. 3. Insulin-dependent type 2 diabetes mellitus. 4. Obstructive sleep apnea, on CPAP. 5. Chronic respiratory failure, on 2 L home oxygen. 6. GERD. 7. Melanoma. 8. Nephrolithiasis. 9. Episode of last hospital stay for concern for bilateral renal infarct, although identification of those masses has not been established. 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 11. Multiple myeloma, stem cell transplant. 12. Depression. 13. Anxiety. 14. Carpal tunnel release. 15. Trigger finger release. 16. Cataract surgery. 17. CKD. MEDICATIONS: Include: 1. Bactrim double strength twice daily since Sunday. 2. Oxycodone 10 mg twice daily as needed. The patient notes he has not been taking this medication for a month. 3. Metformin 1000 mg twice daily despite CKD. 4. Amlodipine 5 mg daily. 5. Ondansetron 4 mg every 8 hours as needed. 6. Omeprazole 40 mg daily. 7. Metoprolol succinate 50 mg twice daily. 8. Imdur 120 mg daily. 9. Insulin glargine in the evening 44 units. 10. Insulin NovoLog 70/30, 20 units in the morning, 45 units with lunch, and 30 units in the evening. 11. Gabapentin 300 mg four times a day as needed. 12. Lipitor 80 mg in the evening. 13. Vitamin D 4000 units daily. 14. Aspirin 81 mg daily. 15. Triamcinolone 0.5% cream topically twice daily as needed. 16. Sublingual nitroglycerin every 5 minutes as needed. 17. Multivitamin 1 tab daily. 18. Nystatin cream 3 times a day. 19. Asmanex inhaled daily. 20. Ventolin every 4 hours as needed. 21. Lidocaine patch 5% topically daily as needed. 22. Xanax 0.5 to 1 tab twice daily as needed for anxiety. ALLERGIES: To AMOXICILLIN AND CLAVULANIC ACID. FAMILY HISTORY: Father with CAD with an [place] as well as type 2 diabetes. SOCIAL HISTORY: Former tobacco, quit 10 years prior. Smoked since his 20s, less than 1 pack per day as well as cigars and pipes. Rare alcohol. 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 REVIEW OF SYSTEMS: As per HPI; otherwise, all other systems negative. PHYSICAL EXAMINATION GENERAL: Older than stated age, sitting up 45 degrees in bed, interactive, pleasant, in no apparent distress. VITAL SIGNS: When seen by this author, 178/80, heart rate 73, respiratory rate is 16, T-max in the emergency room is 94%. The patient notes he did not take his medications this morning. HEENT: Oropharynx is clear. He has moist mucous membranes. Sclerae are anicteric. NECK: JVD to the angle of his jaw. No cervical or supraclavicular lymphadenopathy. LUNGS: Has rales bilateral bases up about a quarter to the apex. HEART: He has regular rate and rhythm, no murmurs, rubs, or gallops. ABDOMEN: Soft, nontender, nondistended. EXTREMITIES: Warm, well perfused. He has 2+ bilateral pitting edema to approximately 6 inches below the knees. NEUROLOGIC: He is alert, oriented x3. His cranial nerves II through XII are intact. Moves all extremities symmetrically. He has no anxiety, agitation, or depression. DIAGNOSTIC STUDIES/LAB DATA: Laboratory data reviewed: Hemoglobin 9.5. Arterial blood gas: pH 7.4, CO2 43, PO2 69, unknown FiO2. BUN 30, creatinine 2.6, lactic acid 1.2. Troponin I 0.03. CRP 9. BNP 334. TSH 30. Data reviewed: EKG: Normal sinus rhythm. Normal limit axis. Late R-wave progression in V5. No ST or T-wave changes. : Formal report, depending on the clinical presentation, x-ray findings could be compatible with vascular congestion with pleural effusion at the left lung base. Alternatively, pneumonia at the posterior left lung base could be considered. Lung V/Q scan: Low probability for pulmonary embolism. ASSESSMENT AND PLAN: This is a 67-year-old man with past medical history of diastolic heart failure; coronary artery disease; multiple myeloma, status post stem cell transplant, presenting with increasing shortness of breath, worse since yesterday, associated with worsening substernal chest pain compared to his usual angina. 1. Hypoxic respiratory failure, suspect in the setting of diastolic heart failure exacerbation. Please note, diastolic dysfunction was noted on his left heart cath, although not as clearly on his last echocardiogram in October of 2017. He has received 40 mg of IV Lasix in the emergency room and now feels better. Strict I's and O's. Daily weights. Continue Lasix tomorrow. Pneumonia is possible based on the chest x-ray, although he has had no fevers. We will hold on antibiotics, continue to follow. If he has fevers or change in his leukocytosis, can consider treating. V/Q scan ordered in the emergency room , low probability pulmonary embolism. In the setting of worsening chest pain, there is concern this could have been preceded by ischemic event or his heart failure was the etiology of his worsening chest pain. We will continue to trend troponins. EKG if they are rising. If rise in troponin, we will consider Cardiology consultation given known coronary artery disease and decision to manage medically. Suspect congestive heart failure exacerbation in the setting of recent illness 1-1/2 weeks ago. I am not ordering a repeat transthoracic echocardiogram compared to October at this time. 2. Congestive heart failure exacerbation, diastolic, acute. Continue Lasix as indicated above. 3. Coronary artery disease. Last left heart cath September 2017. Continue aspirin, metoprolol, atorvastatin, Imdur. 4. Obstructive sleep apnea, on no CPAP. Would likely benefit in the future. 5. Hypertension. Systolic blood pressure 170s now. Did not take medications this morning, one time doses of amlodipine and Imdur, then continue all antihypertensives tomorrow. 6. Type 2 diabetes. Holding metformin in the setting of known chronic kidney disease. Continue with home dose Lantus as well as high-dose insulin sliding scale. Consideration for addition of carb counting ratio should his glucose remain out of control. 7. Hypothyroidism. TSH is elevated, is 30, which is consistent with his previous check in September, unclear validity in the setting of acute illness. I have added on free T3 and free T4 for comparison. Can consider starting low- dose Synthroid in the setting of congestive heart failure exacerbation. This may have contributed to his exacerbation as well. 8. Recent diagnosis of sinus infection. Continue Bactrim double strength twice daily. 9. DVT prophylaxis. The patient received 1 mg/kg of Lovenox in the emergency room prior to V/Q scan. We will continue heparin subcutaneously, starting 24 hours from now. 10. Code status. Full. [id number] #: [id number]
[2018-01-30] MEDS ORDERED: Insulin LISPRO* 1 UNITS UNIT SUBCUT SCH ×2 (16:30→17:32)
[2018-01-30] MEDS: Insulin GLARGINE(*) 1 UNITS UNIT SUBCUT SCH (17:37)
[2018-01-30] MEDS: Insulin LISPRO* 1 UNITS UNIT SUBCUT SCH ×2 (17:41→20:57)
[2018-01-30] MEDS: Atorvastatin* 80 MG TAB PO SCH (20:57)
[2018-01-30] MEDS: Sulfamethox/Trimethoprim DS 800/160* TAB PO SCH (20:57)
[2018-01-30] MEDS: Metoprolol Succinate XL TAB* 50 MG PO SCH (20:57)
[2018-01-30] MEDS: ALPRAZolam TAB* 0.25 MG PO PRN (23:35)
[2018-01-30] MEDS: Gabapentin CAP(*) 300 MG PO PRN (23:40)
[2018-01-31 05:27] LABS: ABS Basophils 0.1 10^3/ul (0-0.2); ABS Eosinophils 0.3 10^3/ul (0-0.6); ABS Lymphocytes 1.8 10^3/ul (1.0-4.8); ABS Monocytes 0.6 10^3/ul (0-0.8); ABS Neutrophils 5.3 10^3/ul (1.5-7.7); ABS Nucleated RBC 0 10^3/ul; Eosinophil % 3.7 % (0-6); Hematocrit 27 % (42-52); Hemoglobin 9.2 g/dl (14.0-18.0); Lymphocyte % 21.9 % (25-47); Mean Corpuscular HGB Conc 34 g/dl (31-36); Mean Corpuscular Hemoglobin 31 pg (27-31); Mean Corpuscular Volume 91 fL (80-94); Mean Platelet Volume 6.4 um3 (7.4-10.4); Nucleated Red Blood Cells % 0.1; Platelet Count 186 10^3/ul (150-450); Red Blood Count 3.01 10^6/ul (4.0-5.4); Red Cell Distribution Width 20 % (10.5-15); White Blood Count 8.1 10^3/ul (3.5-10.8)
[2018-01-31 05:42] LABS: EGFR Non-African American 24.5 (>60)
[2018-01-31] MEDS: Insulin LISPRO* 1 UNITS UNIT SUBCUT SCH ×5 (07:48→21:25)
[2018-01-31] MEDS ORDERED: Furosemide IV* 10 MG/ML VIAL (40 MG) IV SLOW PU SCH (09:00)
[2018-01-31] MEDS: Isosorbide Mononitrate ER TAB* 60 MG PO SCH (09:20)
[2018-01-31] MEDS: Cholecalciferol TAB* 1000 UNITS PO SCH (09:20)
[2018-01-31] MEDS: Gabapentin CAP(*) 300 MG PO PRN (09:20)
[2018-01-31] MEDS: Metoprolol Succinate XL TAB* 50 MG PO SCH ×2 (09:20→21:26)
[2018-01-31] MEDS: Aspirin EC TAB* 81 MG TAB.EC PO SCH (09:21)
[2018-01-31] MEDS: Omeprazole CAP* 20 MG PO SCH (09:21)
[2018-01-31] MEDS: amLODIPine TAB* 5 MG PO SCH (09:21)
[2018-01-31] MEDS: Sulfamethox/Trimethoprim DS 800/160* TAB PO SCH ×2 (09:21→21:26)
[2018-01-31] MEDS: Multivitamins/Minerals TAB PO SCH (09:21)
[2018-01-31] MEDS: Furosemide IV* 10 MG/ML VIAL (40 MG) IV SLOW PU SCH ×2 (09:22→21:25)
[2018-01-31] MEDS: Mometasone 220 MCG MDI INH SCH (12:04)
--- NOTE | 2018-01-31 12:04 | ED ---
Arsalan Almodovar Angela, scribed for Ahmet Glez MD on 01/30/18 at 0719 . Progress - Progress Note Progress Note: This pt was signed out by Dr. Daniels, pending disposition, awaiting labs. Pt is a 67 y/o male who presents to [facility] via EMS for SOB and slight chest pain. PMHx includes diabetes, HTN, CAD s/p 3 stents. Chest XR, as read by radiologist IMPRESSION: Depending on the clinical presentation, the chest x-ray findings could be compatible with vascular congestion with pleural effusion at the left lung base. Alternatively pneumonia at the posterior left lung base could also be considered. Lung VQ Scan, as read by radiologist IMPRESSION: Low probability for pulmonary embolism. Dr. Glez has reviewed these radiology report. Course/Dx - Course Course Of Treatment: This pt was signed out by Dr. Daniels to follow up on the lab results and further disposition. Pt has chronic anemia, D-dimer is 674, he has acute on chronic renal failure, BUN of 30, creatinine of 2.60, BNP of 334 and CRP is 9. ABG shows pH of 7.42, pCO2 of 43, pO2 of 69, O2 saturation of 94.3. Chest XR: Depending on the clinical presentation, the chest x-ray findings could be compatible with vascular congestion with pleural effusion at the left lung base. Alternatively pneumonia at the posterior left lung base could also be considered. In the ED course the pt was given Lasix by Dr. Daniels for CHF exacerbation. Because of the increased D-dimer I wanted to do a chest CTA but the GFR is too low, therefore I ordered a lung perfusion and ventilation scan, which is still pending. I gave the pt Lovenox to prevent the risk for blood clots. He denied any recent GI bleed or melena, therefore the pt was given Lovenox. I discussed the case with Dr. Schwarz, hospitalist, who accepted the pt for admission. Pt is hemodynamically stable, alert and oriented x3. - Diagnoses Provider Diagnoses: CHF exacerbation, Acute on chronic renal failure, Hypoxia - Provider Notifications Discussed Care Of Patient With: Jericho Schwarz Time Discussed With Above Provider: 10:18 Instructed by Provider To: Other - I discussed pt's case with Dr. Schwarz, hospitalist, who has agreed to admit the pt. Discharge - Sign-Out/Discharge Documenting (check all that apply): Discharge - admit to [facility] [place], Receiving Sign-Out Receiving patient FROM: Tenzin Daniels - Discharge Plan Condition: Stable Disposition: ADMITTED TO [facility] Referrals: Aditya Weston, LACTATION SPECIALIST [Primary Care Provider] - The documentation as recorded by the Arsalan mcfarland Angela accurately reflects the service I personally performed and the decisions made by , Ahmet Glez MD.
[2018-01-31] MEDS: Heparin VIAL(*) 5000 UNITS/ML VIAL (FIVE THOUSAND) SUBCUT SCH ×2 (14:12→21:27)
--- NOTE | 2018-01-31 15:09 | PN ---
Subjective Date of Service: 01/31/18 Interval History: Breathing feels much better today. However, ambulated this afternoon and desat to high 80s on 4L with associated SOB. At baseline [place] walk around [place] mall several times without HINKLE. No other complaints Objective Active Medications: Acetaminophen (Tylenol Tab*) 650 mg PO Q4H PRN PRN Reason: FEVER/PAIN Albuterol (Ventolin Hfa Inhaler*) 1 puff INH Q4H PRN PRN Reason: COUGH Alprazolam (Xanax Tab*) 0.25 mg PO BID PRN PRN Reason: ANXIETY Last Admin: 01/30/18 23:35 Dose: 0.25 mg Amlodipine Besylate (Norvasc Tab*) 5 mg PO DAILY [facility] Last Admin: 01/31/18 09:21 Dose: 5 mg Aspirin (Aspirin Ec Tab*) 81 mg PO QAM [facility] Last Admin: 01/31/18 09:21 Dose: 81 mg Atorvastatin Calcium (Lipitor*) 80 mg PO BEDTIME [facility] Last Admin: 01/30/18 20:57 Dose: 80 mg Cholecalciferol (Vitamin D Tab*) 4,000 units PO DAILY [facility] Last Admin: 01/31/18 09:20 Dose: 4,000 units Dextrose (D50w Syringe 50 Ml*) 12.5 gm IV PUSH .FOR FS < 60 - SS PRN PRN Reason: FS < 60 Furosemide (Lasix Iv*) 40 mg IV SLOW PU BID [facility] Last Admin: 01/31/18 09:22 Dose: 40 mg Gabapentin (Neurontin Cap(*)) 300 mg PO QID PRN PRN Reason: PAIN Last Admin: 01/31/18 09:20 Dose: 300 mg Heparin Sodium (Porcine) (Heparin Vial(*)) 5,000 units SUBCUT Q8HR [facility] Last Admin: 01/31/18 14:12 Dose: 5,000 units Insulin Glargine (Lantus(*)) 44 units SUBCUT QPM [facility] Last Admin: 01/30/18 17:37 Dose: 44 units Insulin Human Lispro (Humalog*) 0 units SUBCUT 0730,1130,1630,2100 YOVANA PRN Reason: Protocol Last Admin: 01/31/18 13:03 Dose: 9 units Isosorbide Mononitrate (Imdur Er Tab*) 120 mg PO QAM [facility] Last Admin: 01/31/18 09:20 Dose: 120 mg Lidocaine (Lidoderm 5% Patch*) 1 patch TRANSDERM DAILY PRN PRN Reason: PAIN Metoprolol Succinate (Toprol Xl Tab*) 50 mg PO BID [facility] Last Admin: 01/31/18 09:20 Dose: 50 mg Mometasone Furoate (Asmanex 220 Mcg Mdi *) 1 puff INH DAILY [facility] PRN Reason: Protocol Last Admin: 01/31/18 12:04 Dose: Not Given Multivitamins/Minerals (Theragran/Minerals Tab*) 1 tab PO QAM [facility] Last Admin: 01/31/18 09:21 Dose: 1 tab Omeprazole (Prilosec Cap*) 40 mg PO DAILY [facility] Last Admin: 01/31/18 09:21 Dose: 40 mg Ondansetron HCl (Zofran Tab*) 4 mg PO Q8H PRN PRN Reason: NAUSEA Pharmacy Profile Note (Lidocaine Patch Remove*) 1 note PATCH OFF 2100 PRN PRN Reason: IF APPLIED Trimethoprim/Sulfamethoxazole (Bactrim Ds 800/160 Tab*) 1 tab PO BID [facility] Last Admin: 01/31/18 09:21 Dose: 1 tab Vital Signs - 8 hr 01/31/18 01/31/18 01/31/18 07:06 08:00 09:20 Temperature 97.8 F Pulse Rate 73 Respiratory 18 16 18 Rate Blood Pressure 153/82 (mmHg) O2 Sat by Pulse 92 Oximetry 01/31/18 01/31/18 11:27 11:57 Temperature 98.2 F Pulse Rate 74 Respiratory 18 18 Rate Blood Pressure 154/78 (mmHg) O2 Sat by Pulse 100 Oximetry Oxygen Devices in Use Now: Nasal Cannula - 4L Appearance: Sleeping flat when I arrived, wakes easily, NAD Eyes: No Scleral Icterus, PERRLA Ears/Nose/Mouth/Throat: Clear Oropharnyx, Mucous Membranes Moist Neck: NL Appearance and Movements; NL JVP Respiratory: Symmetrical Chest Expansion and Respiratory Effort, - - left greater than right rales in bases Cardiovascular: RRR Abdominal: NL Sounds; No Tenderness; No Distention, No Hepatosplenomegaly Lymphatic: No Cervical Adenopathy Extremities: - - trace to 1+ LE - improved Neurological: Alert and Oriented x 3 Result Diagrams: 01/31/18 05:15 01/31/18 05:15 Assess/Plan/Problems-Billing Assessment: 67 yo M ho dCHF, CAD, multiple myeloma, pw increased SOB - Patient Problems (1) Acute respiratory failure with hypoxia Comment: suspect acute decompensated dyastolic HF exacerbation. Improving with diuretics. Increase lasix to BID. Fluid restrict to 1500cc/day Strict I/O, daily weights Less likely PNA while improving w/o abx and in absence of fever, cough, normal procalcitonin (2) CAD (coronary artery disease) Comment: ASA, statin, beta angel, nitrates (3) RADU (obstructive sleep apnea) Comment: does not use CPAP (4) Diabetes Comment: AM FSG <100 but elevate dthroughout the day Add carb counting insulin (1:12) in addition to long acting and sliding scale (5) Hypothyroidism Comment: low T4 but normal T3 recheck 4-6 weeks when not ill. (6) DVT prophylaxis Comment: HSQ
[2018-01-31] MEDS: Insulin GLARGINE(*) 1 UNITS UNIT SUBCUT SCH (17:40)
[2018-01-31] MEDS: Atorvastatin* 80 MG TAB PO SCH (21:25)
[2018-01-31] MEDS: ALPRAZolam TAB* 0.25 MG PO PRN (21:26)
[2018-02-01] MEDS: Heparin VIAL(*) 5000 UNITS/ML VIAL (FIVE THOUSAND) SUBCUT SCH (05:44)
[2018-02-01 05:57] LABS: ABS Basophils 0.1 10^3/ul (0-0.2); ABS Eosinophils 0.3 10^3/ul (0-0.6); ABS Lymphocytes 1.6 10^3/ul (1.0-4.8); ABS Monocytes 0.5 10^3/ul (0-0.8); ABS Neutrophils 5.3 10^3/ul (1.5-7.7); ABS Nucleated RBC 0 10^3/ul; Hematocrit 30 % (42-52); Hemoglobin 10.1 g/dl (14.0-18.0); Lymphocyte % 20.3 % (25-47); Mean Corpuscular HGB Conc 34 g/dl (31-36); Mean Corpuscular Hemoglobin 31 pg (27-31); Mean Corpuscular Volume 92 fL (80-94); Mean Platelet Volume 6.9 um3 (7.4-10.4); Nucleated Red Blood Cells % 0.1; Platelet Count 208 10^3/ul (150-450); Red Blood Count 3.23 10^6/ul (4.0-5.4); Red Cell Distribution Width 20 % (10.5-15); White Blood Count 7.8 10^3/ul (3.5-10.8)
[2018-02-01 06:12] LABS: EGFR Non-African American 23.3 (>60)
[2018-02-01] MEDS: Mometasone 220 MCG MDI INH SCH (07:56)
[2018-02-01 08:34] VITALS: BP 156/78
[2018-02-01] MEDS: Isosorbide Mononitrate ER TAB* 60 MG PO SCH (08:50)
[2018-02-01] MEDS: amLODIPine TAB* 5 MG PO SCH (08:51)
[2018-02-01] MEDS: Sulfamethox/Trimethoprim DS 800/160* TAB PO SCH (08:51)
[2018-02-01] MEDS: Cholecalciferol TAB* 1000 UNITS PO SCH (08:51)
[2018-02-01] MEDS: Insulin LISPRO* 1 UNITS UNIT SUBCUT SCH ×4 (08:51→12:13)
[2018-02-01] MEDS: Metoprolol Succinate XL TAB* 50 MG PO SCH (08:51)
[2018-02-01] MEDS: Multivitamins/Minerals TAB PO SCH (08:51)
[2018-02-01] MEDS: Furosemide IV* 10 MG/ML VIAL (40 MG) IV SLOW PU SCH (08:51)
[2018-02-01] MEDS: Omeprazole CAP* 20 MG PO SCH (08:51)
[2018-02-01] MEDS: Aspirin EC TAB* 81 MG TAB.EC PO SCH (08:51)
--- NOTE | 2018-02-01 14:16 | DS ---
CC: Aditya Weston NP * DISCHARGE SUMMARY: DATE OF ADMISSION: 01/30/18 DATE OF DISCHARGE: 01/31/18 PRIMARY CARE PROVIDER: Aditya Weston NP PRIMARY DIAGNOSES: 1. Acute diastolic heart failure exacerbation. 2. History of coronary artery disease with multiple stents. 3. Hypertension. 4. Insulin-dependent type 2 diabetes mellitus. 5. Obstructive sleep apnea, on CPAP. 6. Chronic respiratory failure, uses oxygen more during sleep and not during the day. 7. Gastroesophageal reflux disease. 8. Multiple myeloma status post stem cell transplant. 9. Depression. 10. Anxiety. 11. Chronic kidney disease. MEDICATIONS ON DISCHARGE: Metformin was discontinued secondary to CKD. Largely unchanged except for the addition of Lasix and as follows: 1. Lasix 40 mg daily. 2. Oxycodone 10 mg twice daily as needed. 3. Amlodipine 5 mg daily. 4. Ondansetron 4 mg every 8 hours as needed. 5. Omeprazole 40 mg daily. 6. Metoprolol succinate 50 mg twice daily. 7. Imdur 120 mg daily. 8. Insulin glargine 44 units in the evening with NovoLog 70/30 - 20 units in the morning , 45 units at lunch, and 30 units in the evening with meals. 9. Gabapentin 300 mg 4 times a day as needed. 10. Atorvastatin 80 mg at bedtime. 11. Vitamin D 4000 units daily. 12. Aspirin 81 mg daily. 13. Triamcinolone cream topically twice daily. 14. Nitroglycerin 0.4 mg sublingual 3 times up to 5 minutes apart. 15. Multivitamin 1 tab daily. 16. Nystatin cream topically 3 times a day. 17. Mometasone 1 puff daily. 18. Albuterol HFA every 4 hours as needed. 19. Lidocaine patch transdermally as needed. 20. Xanax 0.5 mg to 1 mg twice daily as needed. 21. Bactrim double strength, to complete prescription started by Aditya Weston for sinus infection. PERTINENT LABORATORY DATA: Notable for creatinine of 2.74 on discharge with a BUN of 35. TSH is 30; free T4 is 0.56, low; and free T3 is 2.70, normal. PERTINENT IMAGING STUDIES: Chest x-ray, impression: Depending on the clinical presentation, the chest x-ray finding could be compatible with a vascular congestion with pleural effusion at the left lung base. Alternatively, a pneumonia at the posterior left lung base could also be considered. Lung V/Q scan: Low probability for pulmonary embolism. HISTORY OF PRESENT ILLNESS AND HOSPITAL COURSE: This is a 67-year-old man with a past medical history as outlined in the history of present illness on the day of admission, who presented to the hospital with shortness of breath with notable findings as indicated above suggestive of pulmonary vascular congestion. There is a low suspicion for pneumonia based on his absence of leukocytosis, normal procalcitonin, absence of cough and fever. He was treated with diuretics in the emergency room with improvement the following day. His diuretics were increased to 40 mg IV twice daily with a negative output of 1000 cc the following day. He was titrated down to room air oxygen and was ambulating around the unit without distress. His lower extremity edema had improved and his lung exam had completely cleared without rales or rhonchi. The etiology for exacerbation is not entirely clear; however, he had been sick approximately 1 to 2 weeks prior to presentation with GI illness and was suffering from what was thought to be a sinus infection, being treated with Bactrim on presentation. He has diastolic dysfunction based on his left heart cath, although not elucidate on his echocardiogram. He will be discharged on 40 mg of Lasix. Of note, his chronic kidney disease precludes the administration of metformin and was discontinued. Additionally, on 40 mg twice daily of Lasix or 80 mg IV Lasix daily. He only produced 2100 cc of urine in a day. The 40 mg of Lasix may or may not be sufficient to maintain his volume neutrality. Additionally, his TSH is elevated with a low T4, but a normal T3. There were no other complications during the course of the hospital stay. At followup, please: 1. A BMP was ordered for the day of his followup on 02/07/18 to trend his creatinine, which is elevated, now on Lasix as well as to check his potassium level. 2. Please adjust Lasix based on volume status. His right leg is noted to have trace to 1+ lower extremity edema, while his left has none. The patient notes this is chronic. 3. We recommend repeat TSH with free T3 and T4 in 4 to 6 weeks when the patient is not acutely ill. 4. No other specific labs or vitals. Please note the patient's dry weight was 110.45 kg on the day of discharge. Reasons to return to the hospital including, but not limited to, recurrent or worsening symptoms, chest pain, shortness of breath, nausea, vomiting, lightheadedness, loss of consciousness, syncope, lower extremity swelling, inability to obtain or tolerate medications, fevers or chills, we discussed with the patient. He acknowledged understanding. TIME SPENT: Greater than 60 minutes was spent on the discharge of this patient , greater than half was spent [id number] with the patient. [id number]/[facility] #: [id number] CAM
== END 2018-02-01 12:33 | disposition home or self-care (01) | DRG 194 ==
LOC: ED 06:13 → MEDTELE 12:15
PROVIDERS: ADMIT Internal Medicine; ATTEND Internal Medicine
DX: I13.0 Hypertensive heart and chronic kidney disease with heart failure and stage 1 through stage 4 chronic kidney disease, or unspecified chronic kidney disease (principal); I50.33 Acute on chronic diastolic (congestive) heart failure; J96.21 Acute and chronic respiratory failure with hypoxia; C90.00 Multiple myeloma not having achieved remission; Z94.84 Stem cells transplant status; N17.9 Acute kidney failure, unspecified; Z68.41 Body mass index [BMI] 40.0-44.9, adult; I25.10 Atherosclerotic heart disease of native coronary artery without angina pectoris; G47.33 Obstructive sleep apnea (adult) (pediatric); K21.9 Gastro-esophageal reflux disease without esophagitis; F32.9 Major depressive disorder, single episode, unspecified; F41.9 Anxiety disorder, unspecified; E11.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mellitus with diabetic chronic kidney disease; N18.9 Chronic kidney disease, unspecified; E03.9 Hypothyroidism, unspecified; E78.00 Pure hypercholesterolemia, unspecified; J45.909 Unspecified asthma, uncomplicated; M46.90 Unspecified inflammatory spondylopathy, site unspecified; F40.240 Claustrophobia; E66.01 Morbid (severe) obesity due to excess calories; D64.9 Anemia, unspecified; J32.9 Chronic sinusitis, unspecified; Z95.5 Presence of coronary angioplasty implant and graft; Z99.81 Dependence on supplemental oxygen; Z79.4 Long term (current) use of insulin; Z79.82 Long term (current) use of aspirin; Z87.442 Personal history of urinary calculi; Z85.820 Personal history of malignant melanoma of skin; Z88.1 Allergy status to other antibiotic agents; Z88.0 Allergy status to penicillin; Z82.49 Family history of ischemic heart disease and other diseases of the circulatory system; Z83.3 Family history of diabetes mellitus; Z91.81 History of falling; Z87.891 Personal history of nicotine dependence; Z98.42 Cataract extraction status, left eye; Z98.41 Cataract extraction status, right eye; Z72.89 Other problems related to lifestyle
CPT/HCPCS: 36415; 36600; 71046; 78582; 80048; 80053; 82803; 83605; 83880; 84145; 84439; 84443; 84481; 84484; 85025; 85379; 85610; 85730; 86140; 87040; 93005; 94640; 94760; 99284; A9270-GY; A9540; A9558; J1644; J1650; J1940

== ENCOUNTER 2018-04-29 11:00 | Day surgery (SDC) | payer BC ==
[~2018-04-29 11:00] MED LIST changes: +Buffered Lidocaine 0.9% SYRIN* 5 ML/SYR SYRINGE INTRADERM ONE; -Diazepam TAB(*) 5 MG ONE; +Famotidine IV* 10 MG/ML 2 ML (20 mg) IV ONE; -Heparin 2 UNITS/ML IVPREMIX* 1,000 ML IV ONE; -Heparin(*) 1000 UNIT/ML 10 ML VIAL CATH LAB IV ONE; -Iodixanol* (CONTRAST) 320 MG/ML 100 ML SDV ONE; -Lidocaine 1% INJ* 10 MG/ML 30 ML SDV ONE; -Midazolam* 1 MG/ML 10 ML VIAL (10 MG) ONE; -NS 0.9% 1000 ML* 1,000 ML IV SCH; +Ondansetron INJ* 2 MG/ML VIAL ONE; -VERAPAMIL 2.5 MG/ML 4 ML VIAL ONE; -diPHENhydraMINE PO* 25 MG ONE; -fentaNYL* 50 MCG/ML 2 ML VIAL (100 MCG VIAL) ONE; -nitroGLYCERIN DRIP* 25,000 MCG/250 ML BTL ONE
[2018-04-29] MEDS ORDERED: Ondansetron ODT TAB* 4 MG ONE (11:18)
[2018-04-29] MEDS ORDERED: Famotidine IV* 10 MG/ML 2 ML (20 mg) ONE (11:18)
[2018-04-29] MEDS ORDERED: Metoprolol Tartrate TAB* 25 MG ONE (13:44)
[2018-04-29] MEDS ORDERED: fentaNYL* 50 MCG/ML 2 ML VIAL (100 MCG VIAL) ONE (14:02)
[2018-04-29] MEDS ORDERED: Midazolam* 1 MG/ML 10 ML VIAL (10 MG) ONE (14:02)
[2018-04-29] MEDS ORDERED: Bupivacaine 0.5% PF 10 ML VIAL INJ ONE (14:15)
[2018-04-29] MEDS ORDERED: fentaNYL* 50 MCG/ML 2 ML VIAL (100 MCG VIAL) IV PRN (14:30)
[2018-04-29] MEDS ORDERED: DiMENhydriNATE IV* 50 MG/ML VIAL IV PUSH PRN (14:30)
[2018-04-29] MEDS ORDERED: Naloxone* 0.4 MG/ML 1 ML VIAL IV PRN (14:30)
[2018-04-29] MEDS ORDERED: oxyCODONE/Acetamin 5/325 MG* TAB PO PRN (14:30)
[2018-04-29] MEDS ORDERED: Metoprolol Tartrate IV* 1 MG/ML 5 ML VIAL ONE (14:50)
[2018-04-29 15:55] VITALS: BP 149/77
--- NOTE | 2018-05-08 11:19 | OP ---
DATE OF OPERATION: 04/29/18 - [facility] DATE OF : 50 SURGEON: Jericho Herr MD NURSE GENERAL DUTY: ALEJANDRINA Morris ANESTHESIA: Local MAC. PRE-OP DIAGNOSES: 1. Right small trigger finger. 2. Right trigger thumb. POST-OP DIAGNOSES: 1. Right small trigger finger. 2. Right trigger thumb. OPERATIVE PROCEDURE: 1. Right small trigger finger release. 2. Right trigger thumb release. INDICATIONS: Thad has a history of multiple trigger fingers. He has had prior injections. The trigger fingers have recurred. We had talked about doing more injections versus surgery. He had wanted to proceed with surgery. ESTIMATED BLOOD LOSS: 2 mL. COMPLICATIONS: None. FINDINGS: As expected. DESCRIPTION OF PROCEDURE: Thad was seen in the preoperative holding area. The correct side, site, and procedures were identified. We came back to the operating room where the arm was prepped and draped in the usual fashion. I had infiltrated the operative area with Marcaine prior to prepping and draping the arm. A time-out was performed. The arm was exsanguinated with the Esmarch and the tourniquet inflated to 250 mmHg. I began by making a 1 cm transverse incision in the MP joint flexion crease of the right thumb. Full-thickness flaps were bluntly raised off the tendon sheath. The digital nerves were protected. A 15-blade was used to incise the A1 caitlin longitudinally. The release was completed distally and proximally with a tenotomy scissors. Everything was looking good, so the wound was irrigated out and the skin closed with 4-0 nylon. I made a 1 cm longitudinal incision over the small finger A1 caitlin. Full- thickness flaps were again bluntly raised off the tendon sheath. Again, digital nerves were protected. The tendon sheath was incised longitudinally on the radial aspect with the 15-blade. The release was completed distally and proximally with the tenotomy scissors. Once the release was complete, the wound was irrigated out, the skin closed with 4-0 nylon suture. The wounds were dressed. The tourniquet was deflated. All fingers pinked up immediately. He was taken to the recovery room in stable condition. [id number]/[facility] #: [id number] MTDD
== END 2018-04-29 15:54 | disposition home or self-care (01) ==
LOC: OR 11:00
PROVIDERS: ATTEND Orthopaedic Surgery Hand Surgery
DX: M65.311 Trigger thumb, right thumb (principal); M65.351 Trigger finger, right little finger; M75.32 Calcific tendinitis of left shoulder; M77.12 Lateral epicondylitis, left elbow; E11.9 Type 2 diabetes mellitus without complications; Z79.4 Long term (current) use of insulin; I25.119 Atherosclerotic heart disease of native coronary artery with unspecified angina pectoris; I10 Essential (primary) hypertension; E78.5 Hyperlipidemia, unspecified; R25.1 Tremor, unspecified; R53.82 Chronic fatigue, unspecified
CPT/HCPCS: A9270-GY; J2250; J3010; J3490

== ENCOUNTER 2018-05-21 12:41 | Inpatient (IN) | payer BC ==
[2018-05-21] MEDS ORDERED: NS 0.9% 1000 ML* 1,000 ML IV ONE (12:42)
--- NOTE | 2018-05-21 12:44 | ED ---
Neurological HPI - HPI Summary HPI Summary: ALYSSIA KAY CALLED AT 1241. This is bruna Hou documenting for attending Ahmet Glez MD. This patient is a 67 year old M BIBA to ED with a chief complaint of neurological deficit since [id number] this morning. The patient reports he had R leg numbness and inability to write s/p walking home from the mall. The patient rates the pain 5/10 in severity. Symptoms aggravated by nothing. Symptoms alleviated by nothing. Patient was initially seen at 1240 upon arrival by ambulance. Head CT was ordered at 1241 and done at 1242. Patient was seen again at 1251. Radiologist called at [address] is negative. Consulted Dr. Araujo at 1256 about the patients case. - History of Current Complaint Stated Complaint: WEAKNESS Time Seen by Provider: 05/21/18 12:41 Hx Obtained From: Patient Onset/Duration: Sudden Onset, Started hours ago - since [id number] this morning. , Still Present Timing: Constant Neurological Deficit Location: RLE - numbness Pain Intensity: 5 Pain Scale Used: 0-10 Numeric Aggravating: Nothing Alleviating: Nothing Associated Signs and Symptoms: Positive: Numbness - in R leg, Nothing - unable to write - Additional Pertinent History Primary Care Physician: [id number] - Allergy/Home Medications Allergies/Adverse Reactions: Allergies Allergy/AdvReac Type Severity Reaction Status Date / Time amoxicillin Allergy Diarrhea Verified 04/22/18 11:29 clavulanic acid Allergy Dizziness Verified 04/22/18 11:29 Home Medications: Home Medications ALPRAZolam TAB* [Xanax TAB*] 0.5 - 1 mg PO BID PRN MDD 2 mg 05/21/18 [History Confirmed 05/21/18] Albuterol HFA INHALER* [Ventolin HFA Inhaler*] 1 puff INH .Q4-6H PRN 05/21/18 [ History Confirmed 05/21/18] Albuterol/Ipratropium RESP(NF) [Combivent Respimat(NF)] 1 puff INH BID 05/21/18 [History Confirmed 05/21/18] Cholecalciferol TAB* [Vitamin D TAB*] 2,000 units PO DAILY 05/21/18 [History Confirmed 05/21/18] Gabapentin CAP(*) [Neurontin 300 CAP(*)] 300 mg PO QID 05/21/18 [History Confirmed 05/21/18] Insulin Glargine,Hum.rec.anlog [Lantus Solostar] 60 unit SUBCUT DAILY 05/21/18 [ History Confirmed 05/21/18] Levothyroxine TAB* [Synthroid TAB*] 50 mcg PO DAILY 05/21/18 [History Confirmed 05/21/18] Lidocaine PATCH 5%* [Lidoderm 5% Patch*] 1 patch TRANSDERM DAILY 05/21/18 [ History Confirmed 05/21/18] Metoprolol Succinate XL TAB* [Toprol XL TAB*] 50 mg PO BID 05/21/18 [History Confirmed 05/21/18] Mometasone 220 MCG MDI * [Asmanex 220 MCG MDI *] 1 puff INH DAILY 05/21/18 [ History Confirmed 05/21/18] Multivitamins/Minerals TAB* [Theragran/minerals TAB*] 1 tab PO DAILY 05/21/18 [ History Confirmed 05/21/18] Nitroglycerin TAB 0.4 MG* 0.4 mg SL Q5M PRN 05/21/18 [History Confirmed 05/21/18 ] Ondansetron TAB* [Zofran 4 MG Tab*] 4 mg PO TID PRN 05/21/18 [History Confirmed 05/21/18] traMADol TAB* [Ultram*] 50 - 100 mg PO Q6HR PRN 05/21/18 [History Confirmed ] PMH/Surg Hx/FS Hx/Imm Hx Endocrine/Hematology History: Reports: Hx Bone Marrow Disease - Multiple myeloma 2014/2015, Hx Diabetes - INSULIN and metformin, Hx Thyroid Disease - on medication, Hx Anemia - history of, not recent, Other Endocrine/ Hematological Disorders Cardiovascular History: Reports: Hx Angina - unstable angina, Hx Coronary Artery Disease - 3 cardiac stents, 2010 & 2012, Hx Hypercholesterolemia, Hx Hypertension - on medication, Other Cardiovascular Problems/Disorders - hyperlipidemia Denies: Hx Cardiac Arrest, Hx Myocardial Infarction, Hx Pacemaker/ICD, Hx Valvular Heart Disease Respiratory History: Reports: Hx Asthma - possible, Hx Seasonal Allergies, Hx Sleep Apnea - Oxygen 3 liters at night. Denies: Hx Chronic Obstructive Pulmonary Disease (COPD) - possible, Hx Pulmonary Edema, Other Respiratory Problems/Disorders GI History: Reports: Hx Gastroesophageal Reflux Disease - on medication, Other GI Disorders - PANCREATITIS History: Reports: Hx Kidney Stones - history of, 3, Other Problems/ Disorders - benign growth on L kidney-follows with Dr Posey Denies: Hx Renal Disease Musculoskeletal History: Reports: Hx Arthritis - left shoulder, Hx Back Problems - arthritis, Hx Tendonitis - right elbow, Other Musculoskeletal History - Right hand thumb and pinky trigger fingers Sensory History: Reports: Hx Cataracts - 2007 Bilateral, Hx Contacts or Glasses - Reading glasses Denies: Hx Hearing Aid Opthamlomology History: Reports: Hx Cataracts - 2008 Bilateral, Hx Contacts or Glasses - Reading glasses Neurological History: Reports: Hx Headaches, Hx Nerve Disease - Neuropathy bilateral feet, hx of carpal tunnel right wrist, Other Neuro Impairments/ Disorders - numbness R hand, Rehman's palsy 2008, balance issues, hx of tremors Psychiatric History: Reports: Hx Anxiety - occasional, Hx Depression - history of, not recent, Other Psychiatric Issues/Disorders - claustrophobia Denies: Hx Panic Disorder - Cancer History Cancer Type, Location and Year: 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 MULTIPLE Myeloma Hx Chemotherapy: Yes - Surgical History Surgery Procedure, Year, and Place: CAD - HEART STENT - 09/2013. Carpal tunnel/ trigger finger surgery-BILATERAL HANDS. Cataracts-BILATERAL. Rt AXILLA DISSECTION - REMOVED melonama-1977. Stem Cell Transplant, [facility] February 2016. Carpal tunnel Hx Anesthesia Reactions: No - Immunization History Date of Tetanus Vaccine: Unk Date of Influenza Vaccine: Fall 2012 Infectious Disease History: Reports: Hx Shingles - 10/2015 Denies: Hx Clostridium Difficile, Hx Hepatitis, Hx Human Immunodeficiency Virus (HIV), Hx of Known/Suspected MRSA, Hx Tuberculosis, Hx Known/Suspected VRE , Hx Known/Suspected VRSA, History Other Infectious Disease - Family History Known Family History: Positive: Cardiac Disease, Diabetes - Social History Alcohol Use: Occasionally Substance Use Type: Reports: None Hx Tobacco Use: Yes - PIPE AND OCCASSIONAL CIGAR Smoking Status (MU): Former Smoker Type: Cigarettes Amount Used/How Often: CIGARS AND PIPE 1-3 TIMES A WEEK WHILE GOLFING Length of Time of Smoking/Using Tobacco: went form about 1pck/d Cigarettes,to pipe occ cigar. Have You Smoked in the Last Year: No Review of Systems Negative: Fever Neurological: Other - unable to write Positive: Numbness - in R leg All Other Systems Reviewed And Are Negative: Yes Physical Exam - Summary Physical Exam Summary: VITAL SIGNS: Reviewed. GENERAL: Patient is a well-developed and nourished MALE who is lying comfortable in the stretcher.Patient is not in any acute respiratory distress. HEAD AND FACE: No signs of trauma. No ecchymosis, hematomas or skull depressions. No sinus tenderness. EYES: PERRLA, EOMI x 2, No injected conjunctiva, no nystagmus. No photophobia. EARS: Hearing grossly intact. Ear canals and tympanic membranes are within normal limits. MOUTH: Oropharynx within normal limits. NECK: Supple, trachea is midline, no adenopathy, no JVD, no carotid bruit, no c- spine tenderness, neck with full ROM. No meningeal signs, no Kernig's or brudzinskis signs. CHEST: Symmetric, no tenderness at palpation LUNGS: Clear to auscultation bilaterally. No wheezing or crackles. CVS: Regular rate and rhythm, S1 and S2 present, no murmurs or gallops appreciated. ABDOMEN: Soft, non-tender. No signs of distention. No rebound no guarding, and no masses palpated. Bowel sounds are normal. EXTREMITIES: FROM in all major joints, no edema, no cyanosis or clubbing. NEURO: Alert and oriented x 3. Speech is normal and follows commands. Slight facial droop and L side weakness with NIH score of 3 SKIN: Dry and warm GCS: 15 Triage Information Reviewed: Yes Vital Signs On Initial Exam: Initial Vitals Temp Pulse Resp BP Pulse Ox 98.4 F 60 18 134/80 98 05/21/18 12:42 05/21/18 12:42 05/21/18 12:42 05/21/18 12:42 05/21/18 12:42 Vital Signs Reviewed: Yes Diagnostics - Laboratory Result Diagrams: 05/21/18 13:01 05/21/18 13:01 Lab Statement: Any lab studies that have been ordered have been reviewed, and results considered in the medical decision making process. - Radiology CXR Radiology Interpretation Completed By: Radiologist - PULMONARY VASCULAR CONGESTION. ED physician has reviewed this radiology report. - CT Head CT Interpretation Completed By: Radiologist - NO ACUTE INTRACRANIAL PATHOLOGY. PRELIMINARY FINDINGS WERE DISCUSSED WITH DR. BLOOM IN THE EMERGENCY DEPARTMENT AT APPROXIMATELY 12:50 PM ON MAY 21, 2018. ED physician has reviewed this radiology report. CTA CT Interpretation: No Acute Changes CT Interpretation Completed By: Radiologist - IMPRESSION: NO ANEURYSM, VASCULAR MALFORMATION, OCCLUSION, OR STENOSIS OF THE VISUALIZED INTRACRANIAL CIRCULATION. MRA Head CT Interpretation: No Acute Changes CT Interpretation Completed By: Radiologist - IMPRESSION: NO ANEURYSM, VASCULAR MALFORMATION, OCCLUSION, OR STENOSIS OF THE VISUALIZED INTRACRANIAL CIRCULATION. - Ultrasound No standard instances Ultrasound Interpretation Completed By: Radiologist - Carotid US reveals THERE IS MILD PLAQUE PRESENT BILATERALLY WITHIN THE CAROTID BULBS AND PROXIMAL INTERNAL CAROTID ARTERIES, NO HEMODYNAMICALLY SIGNIFICANT STENOSIS IS SEEN. ED physician has reviewed this radiology report. - EKG 1322 Cardiac Rate: NL - 62 BPM EKG Rhythm: Sinus Rhythm EKG Interpretation: No ST elevations EKG Comparison: No Significant Change - similar to EKG done on 01/30/18 NIH Scale - NIH Scale Level of Consciousness: Alert/Keenly Responsive Ask Patient the Month and His/Her Age: Both Correct Ask Pt to Open/Close Eyes and Wind Up Worker/Release Non-Paretic Hand: Both Correctly Best Gaze (Only Horizontal Eye Movement): Normal Visual Field Testing: No Visual Loss Facial Paresis-Pt to Smile & Close Eyes or Grimace Symmetry: Minor Paralysis Motor Function - Right Arm: No Drift-Holds 10 Seconds Motor Function - Left Arm: Drifts LT 10 seconds Motor Function - Right Leg: No Drift-Holds 10 Seconds Motor Function - Left Leg: Drifts LT 10 seconds Limb Ataxia-Must be out of Proportion to Weakness Present: Absent Sensory (Use Pinprick to Test Arms/Legs/Trunk/Face): Normal Best Language (Describe Picture, Name Items): No Aphasia Dysarthria (Read Several Words): Normal Extinction and Inattention: No Abnormality Total Score: 3 Course/Dx - Course Assessment/Plan: ALYSSIA KAY CALLED AT 1241. Patient was initially seen at 1240 upon arrival by ambulance. Head CT was ordered at 1241 and done at 1242. Patient was seen again at 1251. Radiologist called at [address] is negative. Consulted Dr. Araujo at 1256 about the patients case. Patient was accepted for admission at 1608. This patient is a 67 year old M BIBA to ED with a chief complaint of neurological deficit since [id number] this morning. The patient reports he had R leg numbness and inability to write s/p walking home from the mall. The patient rates the pain 5/10 in severity. Symptoms aggravated by nothing. Symptoms alleviated by nothing. Patient was initially seen at 1240 upon arrival by ambulance. Head CT was ordered at 1241 and done at 1242. Patient was seen again at 1251. Radiologist called at [address] is negative. Consulted Dr. Araujo at 1256 about the patients case. Blood test results she was instructed anemia, be when of 33 creatinine 2.46 significant for renal failure. Glucose is 213, troponin is 0.01. EKG shows a sinus rhythm with no ST elevation. Head CT impression: No acute intracranial pathology. At this time I discussed my physical exam, findings and test results with Dr. Araujo who came and assessed the patient. He recommends for the patient to get a CTA of the head and neck. However because of the renal failure at this time unable to get a CTA. Therefore he recommends carotid ultrasound and also to give him Plavix 300 mg by mouth. Carotid ultrasound impression: There is some mild headache present bilaterally within the carotid bulb and proximal internal carotid arteries. No hemodynamically significant stenosis is seen. At this point he recommends for the patient to get an MRA of the brain. MRI of the brain impression: No aneurysm or vascular malformation or occlusion or stenosis of the visualized intracranial circulation. At this time Dr. Araujo recommends for the patient to be admitted to the medical team for further workup and management. I discussed the case with Dr. Amin who agrees to admit the patient to his services for further workup and management. The patient is hemodynamically stable alert and oriented 3. - Differential Dx Differential Diagnoses Neuro: Positive: Carbon Monoxide Poisoning, Cerebrovascular Accident, Seizure Disorder, Transient Ischemic Attack, Vasovagal Reaction - Diagnoses Provider Diagnoses: Ischemic cerebrovascular accident (CVA) - Physician Notifications Discussed Care Of Patient With: Merlin Araujo Time Discussed With Above Provider: 12:56 Instructed by Provider To: Other - Consulted Dr. Araujo at 1256 about the patients case and he recommend to do a Head CTA. Dr. Araujo came and saw the patient in the ED at 1334. Consult Dr. Araujo at 1334 who recommends to do a carotid US instead of the CTA and give the patient Plavix 300 PO. He reports not to do a TPA because its been more than 4.[address] Araujo ordered an MRI for this patient at 1447. Discharge - Sign-Out/Discharge Documenting (check all that apply): Patient Departure - Discharge Plan Condition: Stable Disposition: ADMITTED TO [facility] - Billing Disposition and Condition Condition: STABLE Disposition: Admitted to [facility]
--- NOTE | 2018-05-21 12:56 | RAD ---
HISTORY: Neurological changes/code petit COMPARISONS: December 11, 2016 TECHNIQUE: Multiple contiguous axial CT scans were obtained of the head without intravenous contrast. FINDINGS: HEMORRHAGE/INFARCT: There is no hemorrhage or acute infarct. MASSES/SHIFT: There is no mass or shift. EXTRA-AXIAL SPACES: There are no extra-axial fluid collections. SULCI AND VENTRICLES: The sulci and ventricles are normal in size and position for the patient's stated age. CEREBRUM: There are no focal parenchymal abnormalities. BRAINSTEM: There are no focal parenchymal abnormalities. CEREBELLUM: There are no focal parenchymal abnormalities. VESSELS: There is calcification of the cavernous segments of the internal carotid arteries bilaterally. PARANASAL SINUSES: The paranasal sinuses are clear. ORBITS: The orbits are unremarkable. BONES AND SOFT TISSUE: No bone or soft tissue abnormalities are noted. OTHER: None IMPRESSION: NO ACUTE INTRACRANIAL PATHOLOGY. PRELIMINARY FINDINGS WERE DISCUSSED WITH DR. BLOOM IN THE EMERGENCY DEPARTMENT AT APPROXIMATELY 12:50 PM ON MAY 21, 2018.
[2018-05-21 13:12] LABS: ABS Basophils 0 10^3/ul (0-0.2); ABS Eosinophils 0.2 10^3/ul (0-0.6); ABS Lymphocytes 1.8 10^3/ul (1.0-4.8); ABS Monocytes 0.5 10^3/ul (0-0.8); ABS Neutrophils 5.1 10^3/ul (1.5-7.7); ABS Nucleated RBC 0 10^3/ul; Eosinophil % 3.1 % (0-6); Hematocrit 31 % (42-52); Hemoglobin 10.5 g/dl (14.0-18.0); Mean Corpuscular HGB Conc 33 g/dl (31-36); Mean Corpuscular Hemoglobin 31 pg (27-31); Mean Corpuscular Volume 93 fL (80-94); Mean Platelet Volume 7.5 um3 (7.4-10.4); Nucleated Red Blood Cells % 0; Platelet Count 212 10^3/ul (150-450); Red Blood Count 3.39 10^6/ul (4.00-5.40); Red Cell Distribution Width 18 % (10.5-15); White Blood Count 7.7 10^3/ul (3.5-10.8)
[2018-05-21 13:28] LABS: INR 0.88 (0.77-1.02)
[2018-05-21 13:31] LABS: EGFR Non-African American 26.4 (>60)
[2018-05-21] MEDS ORDERED: Clopidogrel TAB* 300 MG PO ONE (13:35)
--- NOTE | 2018-05-21 13:53 | RAD ---
HISTORY: Neurological Changes/Code Machado COMPARISONS: January 30, 2018 VIEWS: 1: frontal portable view of the chest at 1:10 PM FINDINGS: LINES AND TUBES: None. CARDIOMEDIASTINAL SILHOUETTE: The cardiomediastinal silhouette is normal for portable technique. PLEURA: The costophrenic angles are sharp. No pleural abnormalities are noted. LUNG PARENCHYMA: There is prominence of the central pulmonary vasculature. ABDOMEN: The upper abdomen is clear. There is no subphrenic gas. BONES AND SOFT TISSUES: No bone or soft tissue abnormalities are noted. IMPRESSION: PULMONARY VASCULAR CONGESTION.
--- NOTE | 2018-05-21 14:54 | RAD ---
INDICATION: Left-sided weakness. COMPARISON: Correlation is made with a prior carotid duplex study from December 15, 2016. TECHNIQUE: Multiple grayscale, color and Doppler tracings of the common, internal and external carotid and vertebral arteries were obtained. Stenosis estimations reflect velocity criteria that it been correlated to angiographic stenosis calculations based on the distal internal carotid diameter. RIGHT CAROTID: There is mild plaque within the right carotid bulb and proximal internal carotid artery. The peak systolic velocity in the proximal right internal carotid artery is 51 cm/s and the maximum end-diastolic velocity is 15 cm/s. The peak systolic velocity in the distal right common carotid artery is 86 cm/s and the maximum end-diastolic velocity is 17 cm/s. The internal to common carotid artery ratio is 0.6. This would be consistent with a less than 50% stenosis. LEFT CAROTID: There is mild plaque within the left carotid bulb and proximal internal carotid artery. The peak systolic velocity in the proximal left internal carotid artery is 72 cm/s and the maximum end-diastolic velocity is 20 cm/s. The peak systolic velocity in the distal left common carotid artery is 86 cm/s and the maximum end-diastolic velocity is 19 cm/s. The internal to common carotid artery ratio is 0.8. This would be consistent with a less than 50% stenosis. VERTEBRALS: There is antegrade flow in both vertebral arteries. IMPRESSION: THERE IS MILD PLAQUE PRESENT BILATERALLY WITHIN THE CAROTID BULBS AND PROXIMAL INTERNAL CAROTID ARTERIES, NO HEMODYNAMICALLY SIGNIFICANT STENOSIS IS SEEN. CPT II Codes: 3100F
[2018-05-21] MEDS ORDERED: LORazepam INJ* 2 MG/ML 1 ML VIAL IV PUSH ONE ×3 (15:00→19:08)
--- NOTE | 2018-05-21 15:50 | RAD ---
HISTORY: cva COMPARISONS: None TECHNIQUE: 3-D axial [id number] MR angiography was performed of the head to include the eek of Hernandez. Multiple 3-D maximum intensity projection reconstructions are also submitted for review. FINDINGS: RIGHT VERTEBRAL ARTERY: The distal right vertebral artery is unremarkable, without stenosis. LEFT VERTEBRAL ARTERY: The distal left vertebral artery is unremarkable, without stenosis. DOMINANCE: The vertebral arteries are codominant. DISTAL RIGHT CERVICAL INTERNAL CAROTID ARTERY: The distal right cervical internal carotid artery is unremarkable. DISTAL LEFT CERVICAL INTERNAL CAROTID ARTERY: The distal left cervical internal carotid artery is unremarkable. INTRACRANIAL CIRCULATION: There is no aneurysm, vascular malformation, occlusion, or stenosis of the visualized intracranial circulation. The anterior communicating artery complex is clear. There is a origin of the left posterior cerebral artery. OTHER FINDINGS: None IMPRESSION: NO ANEURYSM, VASCULAR MALFORMATION, OCCLUSION, OR STENOSIS OF THE VISUALIZED INTRACRANIAL CIRCULATION.
[2018-05-21 16:32] LABS: Urine Appearance Clear; Urine Blood 1+ (Negative); Urine Color Straw; Urine Ketones Negative (Negative); Urine Protein 2+(100 mg/dL) (Negative); Urine Red Blood Cell Trace(0-2/hpf) (Absent); Urine Specific Gravity 1.011 (1.010-1.030); Urine Urobilinogen Negative (Negative); Urine White Blood Cell Trace(0-5/hpf) (Absent)
--- NOTE | 2018-05-21 16:43 | CONS ---
CC: Dr. Craven; Aditya Weston NP * NEUROLOGY CONSULTATION: DATE OF CONSULT: 05/21/18 REFERRING PHYSICIAN: Dr. Glez. LOCATION: He is in the emergency room to be admitted. CHIEF COMPLAINT: Rights-sided weakness. HISTORY OF PRESENT ILLNESS: Thad Loaiza is a 67-year-old right-handed man who was out doing some errands this morning at about 8:00. He went to the mall and was walking the length of it. He noted that his right leg started to become weak. He drove home and subsequently realized that his right arm was getting weak and not sure when he noticed his speech was off, but that was affected as well. He presented to the emergency room about 4-1/2 hours after onset of symptoms. Dr. Glez evaluated him and I was asked to see him in evaluation. He had a CT scan of the brain, which I reviewed and is interpreted as normal. There is no prior history of cerebrovascular disease. He does not note any significant headache or change in vision. He notes the right side of his face feels a little numb. He is an ex-smoker. He has diabetes, hypertension, peripheral vascular disease, and coronary artery disease. He takes aspirin 81 mg on a daily basis. He is not on any anticoagulants. PAST MEDICAL HISTORY: Notable for chronic kidney disease; diabetes; hypertension; obstructive sleep apnea, not on CPAP; multiple myeloma with bone marrow transplant; diastolic heart dysfunction based on cardiac catheterization in 2017; episodes of vertigo in the past; diabetic neuropathy. MEDICATIONS: At home, consist of: 1. Insulin. 2. Imdur 120 mg p.o. q. day. 3. Metoprolol 50 mg p.o. b.i.d. 4. Omeprazole 40 mg p.o. q. day. 5. Metformin 1000 mg p.o. b.i.d. 6. Lipitor 80 mg p.o. q. day. 7. Gabapentin 300 mg q.i.d. 8. Aspirin 81 mg p.o. q. day. 9. Xanax 0.5 mg b.i.d. p.r.n. anxiety. ALLERGIES: He is listed as having reactions of diarrhea to AMOXICILLIN and dizziness to CLAVULANIC ACID. No other drug allergies listed. FAMILY HISTORY: Noncontributory. REVIEW OF SYSTEMS: Negative for GI bleeding, he is not on any anticoagulants, he has not fallen. He does not have any headache currently. He has not had any recent fevers or infections. PHYSICAL EXAM: He is overweight. Heart rate in the 70s and sinus on the monitor. Blood pressure is running about 140/70. Heart is in a regular rhythm and I do not hear any murmurs. Carotid pulses are present. There are no cervical bruits. Oral mucosa is moist and atraumatic. On neurological exam, pupils react equally from about 3 to 2 mm. Eye movements are normal. Visual acuña are full to confrontation. Funduscopic exam is unremarkable. Facial musculature is notable for right facial synkinesis (he has a history of right Rehman's palsy). Facial sensation is reported as symmetric to pin, decreased to light touch in the right. Palate and tongue appear normal and he has a mild dysarthria. Tongue protrudes in the midline and palate rises symmetrically, however. Motor exam reveals antigravity strength in the right upper extremity, but with a pronator drift. He has good strength in the left arm. He has barely antigravity strength in the right leg proximally, but normal strength distally in the right leg. He has normal strength in the left leg proximally and distally. On sensory exam, he has sensory loss to pin and light touch in a stocking distribution to just below the knees bilaterally. He has decreased pin discrimination in the right arm relative to the left and decreased light touch in the right hand relative to the left. Reflexes are intact and symmetric at the right biceps, left brachioradialis, both knees. Ankle reflexes are absent. Plantar responses are flexor bilaterally. Finger taps are slow and clumsy in the right hand. He is alert and oriented and a good detailed historian. Memory is intact and language is fluent. He has normal attention, concentration, and fund of knowledge. Language is fluent. DIAGNOSTIC STUDIES/LAB DATA: Includes a EKG, which is in sinus rhythm. His CBC from today is notable for a hemoglobin of 10.5, which is stable for him historically from prior evaluations. Platelets counts normal at 212,000. Chemistries today notable for a creatinine of 2.46, which is also stable for him from historical values. Hemoglobin A1c on 04/23/18 was 8.7%. Cholesterol today is 139, LDL 67. CT scan of the brain is reported in the history of present illness is interpreted as no acute intracranial pathology. IMPRESSION: Impression is that of a left hemisphere cerebrovascular accident. He is over 4-1/2 hours out and not a candidate for intravenous t-PA. Unfortunately, we cannot get a CT angiogram with the way his renal function is. He therefore does not appear to be a large vessel occlusion candidate. I recommend we will get a carotid ultrasound in the emergency room. If he has high- grade left internal carotid stenosis, he may be a candidate for transfer to a center with vascular surgery capabilities. If he does not, then I think he should be admitted here. I should note he had a carotid ultrasound early last year, which showed less than 50% stenosis bilaterally. Recommend giving Plavix load 300 mg now. He should be continued on his aspirin therapy. Blood pressure should be managed with permissive hypertension, most recent value is 134/80. If he does stay here, he will need an MRI scan of the brain, telemetry, and probably an echocardiogram. He is already on a statin and his lipid profile is optimized. Further recommendations depend upon his hospital course and results of his studies. [id number]/[facility] #: [id number] CAM
[2018-05-21] MEDS ORDERED: Ondansetron INJ* 2 MG/ML VIAL IV PRN (17:31)
[2018-05-21] MEDS ORDERED: Acetaminophen TAB* 325 MG PO PRN (17:31)
[2018-05-21] MEDS ORDERED: ALPRAZolam TAB* 0.5 MG PO PRN (17:44)
[2018-05-21] MEDS ORDERED: Nystatin TOP POWDER* 15 GM BTL TOPICAL PRN (17:44)
[2018-05-21] MEDS ORDERED: traMADol TAB* 50 MG PO PRN (17:44)
[2018-05-21] MEDS ORDERED: oxyCODONE TAB* 5 MG TAB PO PRN (17:44)
[2018-05-21] MEDS ORDERED: Albuterol HFA INHALER* 8 gm MDI INH PRN (17:44)
[2018-05-21] MEDS ORDERED: Ondansetron TAB* 4 MG PO PRN (17:44)
[2018-05-21] MEDS ORDERED: INSULIN ASPART PROT SUBCUT SCH ×2 (17:45→18:00)
[2018-05-21] MEDS ORDERED: INSULN ASP SUBCUT SCH ×2 (17:45→18:00)
[2018-05-21] MEDS ORDERED: Dextrose 50% Syringe 50 ML* 25 GM/50 ML SYRINGE IV PUSH PRN (18:32)
--- NOTE | 2018-05-21 20:08 | RAD ---
HISTORY: Right arm numbness COMPARISONS: None TECHNIQUE: The following sequences were obtained of the head: Sagittal T1-weighted images, axial T2-weighted images, axial FLAIR images, axial susceptibility weighted images, axial T1-weighted images. Additionally, axial diffusion-weighted images were obtained with calculated apparent diffusion coefficients.. FINDINGS: HEMORRHAGE/INFARCT: There is no hemorrhage or acute infarct. MASSES/SHIFT: There is no mass or shift. EXTRA-AXIAL SPACES/MENINGES: There are no extra-axial fluid collections. SULCI AND VENTRICLES: The sulci and ventricles are normal in size and position for the patient's stated age. CEREBRUM: At the left thalamus there is a 6 mm hyperattenuating focus on diffusion-weighted imaging consistent with a focal acute infarction. On T2-weighted imaging there is additional periventricular and subcortical white matter hyperintensity most consistent with chronic microvascular disease that does not correspond to any acute findings on diffusion-weighted imaging. BRAINSTEM: There are no focal parenchymal abnormalities. CEREBELLUM: There are no focal parenchymal abnormalities. The cerebellar tonsils are normal in size and position. SELLA: The sella is normal. PINEAL: The pineal region is clear. CP ANGLE/TEMPORAL BONES: The labyrinthine structures are grossly normal. VESSELS: Normal flow-voids are noted within the visualized vertebral vasculature. DIFFUSION ABNORMALITIES: There are no diffusion abnormalities. PARANASAL SINUSES/MASTOIDS: The paranasal sinuses are clear. ORBITS: The orbits are unremarkable. BONES AND SOFT TISSUE: No bone or soft tissue abnormalities are noted. IMPRESSION: 1. MR FINDINGS ARE CONSISTENT WITH AN ACUTE FOCAL INFARCTION MEASURING 6 MM AT THE LEFT THALAMUS. 2. IN ADDITION THERE IS MILD CHRONIC APPEARING PERIVENTRICULAR AND SUBCORTICAL WHITE MATTER MICROVASCULAR DISEASE.
[2018-05-21] MEDS: Albuterol/Ipratropium RESP(NF) MDI (Combivent Respimat) INH SCH (20:50)
[2018-05-21] MEDS ORDERED: Insulin GLARGINE(*) 1 UNITS UNIT SUBCUT SCH (21:00)
[2018-05-21] MEDS: Insulin LISPRO* 1 UNITS UNIT SUBCUT SCH ×2 (21:10→21:16)
[2018-05-21] MEDS: Atorvastatin* 80 MG TAB PO SCH (21:28)
[2018-05-21] MEDS: Gabapentin CAP(*) 300 MG PO SCH (21:28)
[2018-05-21] MEDS: Heparin VIAL(*) 5000 UNITS/ML VIAL (FIVE THOUSAND) SUBCUT SCH (21:30)
[2018-05-21] MEDS: CMCS: Pantoprazole TAB (NF) 40 MG TAB PO SCH (21:33)
--- NOTE | 2018-05-21 22:01 | CONS ---
NEUROLOGY CONSULTATION: ADDENDUM: DATE OF CONSULTATION: 05/21/18 LOCATION: He is in the emergency room to be admitted. EMERGENCY ROOM PHYSICIAN: Dr. Glez. Thad had a carotid ultrasound study which I reviewed and which shows no significant carotid stenosis. We decided to do MR angiogram of the brain without contrast because of his renal dysfunction and to rule out a large vessel occlusion. There is no evidence of significant large vessel disease on the MR angiogram. On exam, he has markedly improved. He no longer has a right pronator drift and he can raise his right leg up strongly as well as the left. Visual acuña are full to confrontations. He had some diazepam for the MRI, so his speech is a little bit dysarthric, but other than that he is doing fine. We plan to admit him and continue Plavix and aspirin. He should have an echocardiogram and a regular MRI scan of the brain without contrast. [id number] #: [id number] MTDD
--- NOTE | 2018-05-21 22:58 | HP ---
CC: Aditya Weston NP; Dr. Thad Loya; Dr. Bradly Craven; Dr. Jimmie Malone * MEDICINE HISTORY AND PHYSICAL: DATE OF ADMISSION: 05/21/18 PROVIDER: Brandon Leblanc NP. ATTENDING PHYSICIAN: Dr. Ximena Amin * (dictated by Brandon Leblanc NP). CONSULTING NEUROLOGIST: Dr. Merlin Araujo. PRIMARY CARE PROVIDER: Aditya Weston. PRIMARY TAPE SEWER: Dr. Bradly Craven. PRIMARY AUTOMATION TECHNOLOGIST/ONCOLOGIST: Dr. Thad Loya. PRIMARY RESTAURANT AND BAR MANAGER: Dr. Malone. CHIEF COMPLAINT: Right-sided weakness and speech difficulties. HISTORY OF PRESENT ILLNESS: Mr. Loaiza is a 67-year-old male, who presented to the ER today with concern for right-sided weakness and speech difficulties. He states he was out early this morning doing errands and walking around the mall. He has noticed at one point that he felt like his right leg was dragging. He was able to get into his car and drive himself home. He states that he could barely walk inside the house. He also noticed that he was having some difficulty with his speech, and that it sounded different than normal. He did call EMS Services and was transported to the ER where he was evaluated, was concerned for an acute stroke. He was a [employer] [place] and seen in consultation in the ER by Dr. Araujo of Neurology. At that time, he was recommended to have a carotid ultrasound and head MRA in the emergency room in order to evaluate for high-grade internal carotid stenosis, as he was unable to have a CTA due to his renal function. His carotid Doppler studies showed mild plaque present bilaterally within the carotid bulbs and proximal internal carotid arteries, but no hemodynamically significant stenosis was seen. His head MRA showed no aneurysm, vascular malformation, occlusion, or stenosis of the visualized intracranial circulation and a CT brain showed no acute intracranial pathology. The CT was taken upon arrival per [facility] protocol. Given these findings, the patient was recommended for admission here to [facility]. He was given a Plavix load of 300 mg and recommended to continue on aspirin therapy. Mr. Loaiza does report some mild improvement in his symptoms stating that he now has more active use of his right lower extremity. He feels as if his right hand weakness is still fairly significant. He does not feel as if he is having difficulty expressing himself or forming his words. He denies any chest pain. He does state at baseline he does have some chest pain with exertion and was told by his web coordinator to take a nitro prior to exerting activities, such as mowing his lawn. He states that most recently when mowing his lawn, he had more chest pain than usual requiring up to 3 nitro. However, he denies having any chest pain today. He denies any significant shortness of breath stating that he does get some shortness of breath with exertion at baseline, but denies any increase in this. He has felt at his best and denies any acute illness or concerns prior to his presentation this morning with the right-sided weakness. PAST MEDICAL HISTORY: Which was gathered from the patient and review of medical records includes: 1. Coronary artery disease, status post multiple stents. 2. Hypertension. 3. Type 2 diabetes, insulin dependent. 4. Obstructive sleep apnea, not on CPAP. 5. COPD. 6. History of multiple myeloma, status post stem cell transplant. 7. Chronic kidney disease, Nephrology consult pending. 8. GERD. 9. Melanoma. 10. History of nephrolithiasis. 11. Question of previous bilateral renal infarct. 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 13. Depression. 14. Anxiety. 15. Cataracts with surgery. PAST SURGICAL HISTORY: Includes carpal tunnel release, trigger finger release, cataract surgery, and left heart cath in September 2017. HOME MEDICATIONS: 1. Mometasone 220 mcg 1 puff inhaled daily. 2. Tramadol 50 to 100 mg q. 6 hours p.r.n. 3. Oxycodone 10 mg q.i.d. p.r.n. 4. Omeprazole 40 mg b.i.d. 5. Furosemide 40 mg q.a.m. 6. Atorvastatin 80 mg q.p.m. 7. Amlodipine 5 mg q.a.m. 8. Gabapentin 300 mg q.i.d. 9. Aspirin 81 mg q.a.m. 10. Multivitamin 1 tablet daily. 11. Cholecalciferol 2000 units daily. 12. Metoprolol succinate XL 50 mg b.i.d. 13. Nitroglycerin 0.4 mg sublingual q. 5 minutes p.r.n. 14. Nystatin 1 application topical t.i.d. p.r.n. 15. Albuterol inhaler 1 puff inhaled q. 4 to 6 hours p.r.n. 16. Lidocaine patch 5% apply 1 patch transdermally daily. 17. Imdur ER 120 mg q.a.m. 18. Alprazolam 0.5 to 1 mg b.i.d. p.r.n. 19. Insulin glargine 60 units subcu daily. 20. NovoLog Mix 70/30, 30 units subcu q.p.m. 21. NovoLog Mix 70/30, 20 units subcu q.a.m. 22. NovoLog Mix 70/30, 45 units subcu at lunch. 23. Zofran 4 mg t.i.d. p.r.n. 24. Combivent 1 puff inhaled b.i.d. 25. Levothyroxine 50 mcg daily. ALLERGIES: Include AMOXICILLIN and CLAVULANIC ACID. FAMILY HISTORY: Includes father with history of coronary artery disease and type 2 diabetes. SOCIAL HISTORY: He is a former smoker. He quit 10 years ago and was a previous less than 1 pack per day smoker. He reports rare alcohol use, reporting an occasional beer. He is retired. 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 He is . His , Charo Loaiza is his surrogate decision maker and healthcare proxy. REVIEW OF SYSTEMS: An 11 point review of systems was completed. All pertinent positives and negatives as per HPI. All others not mentioned are negative. PHYSICAL EXAMINATION GENERAL: This is a very pleasant older male, who is lying in bed, in no acute distress. He is very pleasant, interactive. VITAL SIGNS: Temperature 98.4, pulse rate 56, respiratory rate 20, blood pressure 163/86, and O2 saturation is 95% on room air. HEENT: Head, atraumatic, normocephalic. He appears to have mild facial drooping to the left side, which he states is chronic from history of Rehman's palsy. Pupils are equal, round, and reactive to light and accommodation. Extraocular movements are intact. Oral mucosa is moist. There is no oropharyngeal erythema or exudate. NECK: Supple. No JVD noted. No carotid bruits noted. He has full range of motion to the neck. No lymphadenopathy appreciated. RESPIRATORY: Lungs are clear to auscultation bilaterally with good air flow throughout. CARDIAC: Normal S1 and S2 heart sounds with regular rate and rhythm. No murmurs appreciated. He does have bilateral lower extremity edema, approximately 1+ and pitting. Distal pulses are intact and present 1+. ABDOMEN: Soft, nontender, nondistended. Bowel sounds are normoactive. MUSCULOSKELETAL: There is no clubbing or cyanosis. SKIN: Appears warm and dry. No rashes noted. NEUROLOGIC: He is alert and oriented x3. Speech has occasional slurring but is fluent and easy to understand. The patient is able to make needs known and able to follow commands. There is mild right pronator drift and slight right- sided weakness with dry cans operator. Strength is 5/5 in lower extremities, 4/5 in right upper extremity and 5/5 in left upper extremity. The patient was able to stand steadily but was somewhat lightheaded, so we did not ambulate. LABORATORY DATA AND DIAGNOSTIC STUDIES: CBC: WBC 7.7, hemoglobin 10.5, hematocrit 31, platelet count 212. INR 0.88. CMP: Sodium 138, potassium 4.3, chloride 106, carbon dioxide 24, BUN 33, creatinine 2.46, glucose 213, lactic acid 1.5, calcium 8.7. Total bilirubin 0.4, AST 20, ALT 20, alk phos 88. Troponin 0.01. Total protein 6.6. Albumin 3.8. Triglycerides 325, cholesterol 139, LDL 67, HDL 27.2. Urinalysis positive for 1+ blood and 1+ glucose. Head MRA and carotid Doppler studies as per the HPI. EKG was reviewed, shows sinus rhythm with no significant ST or T wave changes. Chest x-ray was reviewed , shows some pulmonary vascular congestion. Brain CT also as per HPI and old medical records were reviewed. ASSESSMENT: This is a 67-year-old male, who presents today for left hemispheric cerebrovascular accident. He unfortunately presented outside the window for tPA, but he will be admitted here initially in observation for further evaluation and monitoring as well as MRI and echocardiogram. PLAN: As follows: 1. CVA. Admit to telemetry, continue to monitor the patient on telemetry with plans to follow up with an MRI of the brain as well as an echo, which will likely happen tomorrow. I appreciate recommendations as outlined by Dr. Araujo in his notes. We will continue him on Plavix and allow for permissive hypertension. I do note that he has had some elevated blood pressures here in the ER, but I am not sure of the accuracy of this as he is moving when pressure cuff tightens and the cuff does appear to be too small for the patient; however , if we do find that he has persistently elevated pressures with SBP >200 or DBP >110, we can consider utilizing a small dosage of antihypertensive to regulate this; however, in the mean time, we will continue to hold his medications and to allow for permissive hypertension with close attention to the blood pressures. Statin therapy will be continued at his current dosing. He is already optimized on this. Continuous neurological checks, PT/OT consults and he is ordered bedside dysphagia screen, should he show any concern for dysphagia , he will be ordered a speech consult. 2. History of coronary artery disease. Continue aspirin and atorvastatin. We will continue his Imdur. We will hold his metoprolol temporarily to allow for permissive hypertension. 3. History of hypertension. Again, we will be holding the majority of his medications to allow for permissive hypertension in the presence of an acute CVA. 4. History of congestive heart failure. It does not appear to be acute exacerbation. We will need to carefully monitor him for his fluid status. We will temporarily hold his Lasix, but we will resume this when reasonable to do so. 5. History of obstructive sleep apnea. Does not use CPAP. 6. History of chronic kidney disease. The patient states that he is due to see Dr. Craven in 2 weeks in his office. He should follow up as an outpatient in terms of his renal function here. We will recheck his BMP again tomorrow. We will continue to follow this intermittently. His creatinine appears to be within baseline as his last few checks showed his baseline to be between 2.6 and 2.7 since January. 6. Type 2 diabetes. We will continue him on insulin therapy. He will continue on his daily dose of insulin glargine. We will change his NovoLog 70/ 30 insulin to lispro sliding scale insulin with carb coverage. 7. History of GERD. Continue omeprazole. 8. History of multiple myeloma and melanoma. Continue outpatient followup with Dr. Loya as scheduled. 9. History of depression and anxiety. Continue home regimen with alprazolam. 10. Hypothyroidism. Continue levothyroxine. 11. FEN: He will be ordered a heart-healthy diet. 12. Code status: He is a full code. 13. DVT prophylaxis: He was ordered subcu heparin. 14. Disposition: Pending PT and OT evaluations TIME SPENT: Approximately 65 minutes were spent on this admission with more than half that time spent [id number] with the patient obtaining history and physical, performing physical examination and reviewing the plan of care. Plan of care was also reviewed with my attending, Dr. Ximena Amin, who is in agreement. BRANDON LEBLANC, PSYCHOLOGY TEACHER [id number]/CPS #: [id number] CAM
[2018-05-22 05:49] LABS: ABS Basophils 0 10^3/ul (0-0.2); ABS Eosinophils 0.2 10^3/ul (0-0.6); ABS Lymphocytes 1.3 10^3/ul (1.0-4.8); ABS Monocytes 0.5 10^3/ul (0-0.8); ABS Nucleated RBC 0 10^3/ul; Eosinophil % 3.4 % (0-6); Hematocrit 31 % (42-52); Hemoglobin 10.3 g/dl (14.0-18.0); Lymphocyte % 18.7 % (25-47); Mean Corpuscular HGB Conc 34 g/dl (31-36); Mean Corpuscular Hemoglobin 31 pg (27-31); Mean Corpuscular Volume 93 fL (80-94); Mean Platelet Volume 7.2 um3 (7.4-10.4); Nucleated Red Blood Cells % 0; Platelet Count 188 10^3/ul (150-450); Red Blood Count 3.29 10^6/ul (4.00-5.40); Red Cell Distribution Width 18 % (10.5-15); White Blood Count 7.2 10^3/ul (3.5-10.8)
[2018-05-22] MEDS: Levothyroxine TAB* 50 MCG TAB PO SCH (05:51)
[2018-05-22] MEDS: Heparin VIAL(*) 5000 UNITS/ML VIAL (FIVE THOUSAND) SUBCUT SCH ×3 (05:51→21:18)
[2018-05-22] MEDS: Mometasone 220 MCG MDI INH SCH (07:48)
[2018-05-22 07:58] LABS: EGFR Non-African American 26.5 (>60)
--- NOTE | 2018-05-22 08:04 | PN ---
Subjective Date of Service: 05/22/18 Interval History: Pt is feeling weak in his R UE. He thinks he has significant improvement in his R LE. His speech is still slurred. He states he is hungry having only had a turkey sandwich last night. He denies any pain or SOB. Objective Active Medications: Acetaminophen (Tylenol Tab*) 650 mg PO Q4H PRN PRN Reason: FEVER/PAIN Albuterol (Ventolin Hfa Inhaler*) 1 puff INH Q4H PRN PRN Reason: SHORTNESS OF BREATH Last Admin: 05/22/18 07:47 Dose: 1 puff Albuterol/Ipratropium (Combivent Respimat(Nf)) 1 puff INH BID [facility]; Protocol Last Admin: 05/21/18 20:50 Dose: Not Given Alprazolam (Xanax Tab*) 0.5 mg PO BID PRN PRN Reason: ANXIETY Last Admin: 05/21/18 22:40 Dose: 0.5 mg Aspirin (Aspirin Ec Tab*) 81 mg PO QAM [facility] Atorvastatin Calcium (Lipitor*) 80 mg PO QPM [facility] Last Admin: 05/21/18 21:28 Dose: 80 mg Cholecalciferol (Vitamin D Tab*) 2,000 units PO DAILY [facility] Clopidogrel Bisulfate (Plavix Tab*) 75 mg PO DAILY [facility] Dextrose (D50w Syringe 50 Ml*) 12.5 gm IV PUSH .FOR FS < 60 - SS PRN PRN Reason: FS < 60 Gabapentin (Neurontin Cap(*)) 300 mg PO QID [facility] Last Admin: 05/21/18 21:28 Dose: 300 mg Heparin Sodium (Porcine) (Heparin Vial(*)) 5,000 units SUBCUT Q8HR [facility] Last Admin: 05/22/18 05:51 Dose: 5,000 units Insulin Glargine (Lantus(*)) 60 units SUBCUT DAILY [facility] Insulin Human Lispro (Humalog*) 0 units SUBCUT AC [facility]; Protocol Last Admin: 05/21/18 21:16 Dose: Not Given Insulin Human Lispro (Humalog*) 0 units SUBCUT AC [facility]; Protocol Last Admin: 05/21/18 21:10 Dose: Not Given Isosorbide Mononitrate (Imdur Er Tab*) 120 mg PO QAM [facility] Levothyroxine Sodium (Synthroid Tab*) 50 mcg PO 0600 [facility] Last Admin: 05/22/18 05:51 Dose: 50 mcg Lidocaine (Lidoderm 5% Patch*) 1 patch TRANSDERM DAILY [facility] Mometasone Furoate (Asmanex 220 Mcg Mdi *) 1 puff INH DAILY [facility]; Protocol Last Admin: 05/22/18 07:48 Dose: 1 puff Multivitamins/Minerals (Theragran/Minerals Tab*) 1 tab PO DAILY [facility] Nystatin (Nystatin Top Powder*) 1 applic TOPICAL TID PRN PRN Reason: RASH Ondansetron HCl (Zofran Inj*) 4 mg IV Q4H PRN PRN Reason: NAUSEA/VOMITING Ondansetron HCl (Zofran Tab*) 4 mg PO TID PRN PRN Reason: NAUSEA/VOMITING Oxycodone HCl (Roxycodone Tab*) 10 mg PO QID PRN PRN Reason: PAIN Pantoprazole Sodium (Protonix Tab (Nf)) 80 mg PO BID [facility] Last Admin: 05/21/18 21:33 Dose: 80 mg Pharmacy Profile Note (Lidocaine Patch Remove*) 1 note PATCH OFF 2099 [facility] Tramadol HCl (Ultram*) 50 mg PO Q6HR PRN PRN Reason: PAIN Vital Signs - 8 hr 05/22/18 05/22/18 05/22/18 00:20 00:21 03:41 Temperature 98.3 F Pulse Rate 67 Respiratory 18 18 20 Rate Blood Pressure 198/84 (mmHg) O2 Sat by Pulse 95 Oximetry 05/22/18 03:56 Temperature Pulse Rate Respiratory Rate Blood Pressure 188/98 (mmHg) O2 Sat by Pulse Oximetry Oxygen Devices in Use Now: Nasal Cannula Appearance: Middle aged male lying in bed, NAD Eyes: No Scleral Icterus Ears/Nose/Mouth/Throat: Mucous Membranes Moist Respiratory: Symmetrical Chest Expansion and Respiratory Effort, Clear to Auscultation - anteriorly and lateral bases Cardiovascular: NL Sounds; No Murmurs; No JVD, RRR, No Edema, - - heart sounds are distant Abdominal: NL Sounds; No Tenderness; No Distention, - - obese abdomen Extremities: No Clubbing, Cyanosis Skin: No Nodules or Sclerosis Neurological: Alert and Oriented x 3, - - + mild dysarthria, mild droop of the L corner of the mouth, 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 - Patient Problems (1) Acute thalamic infarction Current Visit: Yes Status: Acute Code(s): I63.9 - CEREBRAL INFARCTION, UNSPECIFIED SNOMED Code(s): 238573006 Comment: The patient was found to have an acute infarct at the L thalamus on MRI. Today pt still dysarthric and with mild R arm weakness. Will obtain echo, continue to monitor on tele, continue ASA and plavix (new), continue lipitor. PT /OT/speech evals pending. (2) CAD (coronary artery disease) Current Visit: Yes Status: Acute Code(s): I25.10 - ATHSCL HEART DISEASE OF [place] CORONARY ARTERY W/O ANG PCTRS SNOMED Code(s): 00037608 Comment: Pt has episodes of CP with exertion. Nothing recent. He will continue on his usual home medication regimen and plavix has been added for his acute CVA. Monitor for symptoms. (3) Diabetes Current Visit: Yes Status: Acute Code(s): E11.9 - TYPE 2 DIABETES MELLITUS WITHOUT COMPLICATIONS SNOMED Code(s): 22830467 Comment: A1c in 04/2018 was elevated at 8.7%. Will continue lantus and monitor sugars. Pt is on a combination insulin at home. Continue lispro sliding scale. The patient's uncontrolled diabetes likely has lead to some vascular disease and therefore likely contributed in a roundabout way to his acute CVA. (4) HTN (hypertension) Current Visit: Yes Status: Acute Code(s): I10 - ESSENTIAL (PRIMARY) HYPERTENSION SNOMED Code(s): 23076901 Comment: Allowing the patient to be hypertensive. Will start back metoprolol XL so he does not become tachycardic from BBlocker withdrawal. Continue imdur. Hold amlodipine. (5) Depression with anxiety Current Visit: Yes Status: Acute Comment: Continue xanax prn. Continue supportive care. (6) HLD (hyperlipidemia) Current Visit: Yes Status: Acute Code(s): E78.5 - HYPERLIPIDEMIA, UNSPECIFIED SNOMED Code(s): 13792072 Comment: Continue lipitor 80mg daily. LDL is 67. (7) GERD (gastroesophageal reflux disease) Current Visit: Yes Status: Acute Code(s): K21.9 - GASTRO-ESOPHAGEAL REFLUX DISEASE WITHOUT ESOPHAGITIS SNOMED Code(s): 882537352 Comment: Continue protonix. (8) Hypothyroidism Current Visit: Yes Status: Acute Code(s): E03.9 - HYPOTHYROIDISM, UNSPECIFIED SNOMED Code(s): 49653115 Comment: TSH 17.73 in 04/2018-improving from 02/2018. Continue current dose of synthroid and he will need recheck in about 2 weeks. (9) Multiple myeloma Current Visit: Yes Status: Acute Code(s): C90.00 - MULTIPLE MYELOMA NOT HAVING ACHIEVED REMISSION SNOMED Code(s): 360933795 Comment: In remission, follows with Dr Loya. (10) DVT prophylaxis Current Visit: Yes Status: Acute Code(s): RZK6361 - SNOMED Code(s): 525804522 Comment: SQ heparin (11) Full code status Current Visit: Yes Status: Acute Code(s): Z78.9 - OTHER SPECIFIED HEALTH STATUS SNOMED Code(s): 218209384
[2018-05-22] MEDS ORDERED: [UNRECOGNIZED DRUG - OTHER] SUBCUT SCH (09:00)
[2018-05-22] MEDS ORDERED: Insulin GLARGINE(*) 1 UNITS UNIT SUBCUT SCH (09:00)
[2018-05-22] MEDS ORDERED: INSULN ASP SUBCUT SCH (09:00)
[2018-05-22] MEDS ORDERED: INSULIN GLARGINE HUM REC ANLOG 60 UNIT SUBCUT SCH (09:00)
[2018-05-22] MEDS ORDERED: INSULIN ASPART PROT SUBCUT SCH (09:00)
[2018-05-22] MEDS: Insulin GLARGINE(*) 1 UNITS UNIT SUBCUT SCH (09:18)
[2018-05-22] MEDS: Insulin LISPRO* 1 UNITS UNIT SUBCUT SCH ×6 (09:19→18:06)
[2018-05-22] MEDS: Isosorbide Mononitrate ER TAB* 60 MG PO SCH (09:20)
[2018-05-22] MEDS: Aspirin EC TAB* 81 MG TAB.EC PO SCH (09:20)
[2018-05-22] MEDS: Metoprolol Succinate XL TAB* 50 MG PO SCH ×2 (09:20→21:02)
[2018-05-22] MEDS: Gabapentin CAP(*) 300 MG PO SCH ×4 (09:20→21:03)
[2018-05-22] MEDS: Cholecalciferol TAB* 1000 UNITS PO SCH (09:20)
[2018-05-22] MEDS: Clopidogrel TAB* 75 MG PO SCH (09:20)
[2018-05-22] MEDS: Multivitamins/Minerals TAB PO SCH (09:21)
[2018-05-22] MEDS: Lidocaine PATCH 5%* 1 PATCH TRANSDERM SCH (09:21)
[2018-05-22] MEDS: CMCS: Pantoprazole TAB (NF) 40 MG TAB PO SCH ×2 (09:28→21:16)
[2018-05-22] MEDS: Albuterol/Ipratropium RESP(NF) MDI (Combivent Respimat) INH SCH ×2 (09:30→20:45)
[2018-05-22] MEDS ORDERED: Perflutren Lipid Microsphere* 3 ML VIAL ONE (11:10)
--- NOTE | 2018-05-22 13:44 | ECHO ---
Patient: MAURICE WEBER [facility] Rec#: [id number] : 1950 Date: 05/22/2018 Age: 67y Height: 165 cm / 65.0 in Weight: 117 kg / 257.9 lbs Sex: M BSA: 2.2 Room#: [facility] Admit Date#: 05/21/2018 Type: Inpatient Referring: Maddison Nolan Reading: Agusto Cruz DO Optometric Coordinator: Brianda Chopra,PAYTONCS,RDMS CC: Aditya Weston NP Transthoracic Echocardiogram Indication: CVA BP: 188/98 HR: 55 Rhythm: Bradycardia Findings History: CAD, PCI, HTN, DM, COPD, RADU Technical Comments: The study quality is fair. The study is technically limited due to poor apical windows. Left Ventricle: The left ventricular chamber size is normal. Moderate concentric left ventricular hypertrophy is observed. There is normal left ventricular systolic function. The estimated ejection fraction is 55-60%. Abnormal left ventricular diastolic function is observed. Left Atrium: The left atrium is mildly dilated. Right Ventricle: The right ventricular chamber size and systolic function are within normal limits. Right Atrium: The right atrium is mildly dilated. The bubble study is negative. A patent foramen ovale is not demonstrated with color Doppler and agitated contrast. Aortic Valve: The aortic valve is trileaflet. The aortic valve leaflets are mildly thickened. Mild aortic leaflet calcification is visualized. Systolic excursion of the aortic valve is normal. There is no evidence of aortic regurgitation. There is no evidence of aortic stenosis. Mitral Valve: The mitral valve leaflets are moderately thickened. Mild mitral leaflet calcification is visualized. There is mild mitral regurgitation. There is no evidence of mitral stenosis. Tricuspid Valve: The tricuspid valve leaflets are normal. There is no evidence of tricuspid valve regurgitation. Unable to estimate the right ventricular systolic pressure. Pulmonic Valve: The pulmonic valve appears normal. There is a trace pulmonic regurgitation. Pericardium: There is no significant pericardial effusion. Aorta: The aortic root appears normal. There is no dilatation of the aortic arch. Pulmonary Artery: The main pulmonary artery is not well visualized. Venous: The inferior vena cava appears normal in size. There is a greater than 50% respiratory change in the inferior vena cava dimension. Contrast: Definity was used to optimize study. A total of 2 ml was used Intravenous agitated saline contrast was used to assess intracardiac shunting. Conclusions The left ventricular chamber size is normal. Moderate concentric left ventricular hypertrophy is observed. There is normal left ventricular systolic function. The estimated ejection fraction is 55-60%. The left atrium is mildly dilated. The right ventricular chamber size and systolic function are within normal limits. No significant valvular abnormalities noted The bubble study is negative. Definity was used to optimize study. Compared to prior study from 10/2017, no clinically significant changes noted. Measurements Name Value Normal Range RVIDd (AP) 2D 3 cm (0.9 - 2.6) RVDdMajor (2D) 3.9 cm (2.2 - 4.4) RAd ISD 4CH 5.9 cm (3.4 - 4.9) RA (A4C)W 4.4 cm (2.9 - 4.6) IVSd (2D) 1.6 cm (0.6 - 1) LVPWd (2D) 1.4 cm (0.6 - 1) LVIDd (2D) 4.8 cm (3.6 - 5.4) LVIDs (2D) 3.2 cm - LV FS (2D) 34 % (25 - 45) Aortic Annulus 2.2 cm (1.4 - 2.6) Ao root diameter (2D) 3.3 cm (2.1 - 3.5) Ascending Ao 3 cm (2.1 - 3.4) Aortic arch 2.8 cm (1.8 - 3.4) LA dimension (AP) 2D 4.6 cm (2.3 - 3.8) LAd ISD 4CH 6.3 cm (2.9 - 5.3) LA ISD 4CH W 5.2 cm (2.5 - 4.5) Name Value Normal Range LA ESV BP (A/L) index 35 ml/m2 - Name Value Normal Range MV E-wave Vmax 0.9 m/sec - MV deceleration time 240 msec - MV A-wave Vmax 0.5 m/sec - MV E:A ratio 1.6 ratio - LV septal e' Vmax 0.07 m/sec - LV lateral e' Vmax 0.1 m/sec - LV E:e' septal ratio 13 ratio - LV E:e' lateral ratio 9 ratio - Name Value Normal Range AV Vmax 1.1 m/sec - AV VTI 24.5 cm - AV peak gradient 5 mmHg - AV mean gradient 3 mmHg - LVOT diameter 2.3 cm - LVOT Vmax 0.9 m/sec - LVOT VTI 19 cm - LVOT peak gradient 3.2 mmHg - LVOT mean gradient 1 mmHg - AMARILIS (continuity Vmax) 3.4 cm2 - AMARILIS (continuity VTI) 3.2 cm2 - DOMINICK Vmax 0.7 m/sec - Name Value Normal Range MV Vmax 1.1 m/sec - MV VTI 37 cm - MV peak gradient 5 mmHg - MV mean gradient 2 mmHg - MV PHT 109 msec - MVA (PHT) 2 cm2 - MVA (continuity VTI) 2.2 cm2 - Name Value Normal Range RAP 8 mmHg - IVC diameter 2 cm - Name Value Normal Range PV Vmax 0.7 m/sec - PV peak gradient 2 mmHg -
[2018-05-22] MEDS: Atorvastatin* 80 MG TAB PO SCH (18:05)
[2018-05-22] MEDS ORDERED: Nitroglycerin TAB 0.4 MG* 0.4 MG TAB SL ONE (20:55)
[2018-05-22] MEDS ORDERED: Nitroglycerin TAB 0.4 MG* 0.4 MG TAB ONE (21:00)
[2018-05-22] MEDS: Lidocaine Patch REMOVE* 1 NOTE MISC PATCH OFF SCH (21:07)
--- NOTE | 2018-05-22 22:04 | CONS ---
NEUROLOGY FOLLOWUP NOTE: DATE OF FOLLOWUP: 05/22/18 LOCATION: He is an inpatient, room 441. HOSPITALIST: Ximena Amin DO CHIEF COMPLAINT: Right-sided weakness. INTERVAL HISTORY: Since yesterday, Thad feels that there has been some improvement in his right-sided strength. He was able to ambulate with the assistance of the physical therapist. He has no new symptoms to report. MEDICATIONS: Reviewed and he remains on: 1. Aspirin 81 mg p.o. daily. 2. Clopidogrel 75 mg p.o. daily. 3. Gabapentin 300 mg p.o. 4 times a day. 4. Heparin subcutaneous 5000 units q.8 hours. 5. Insulin sliding scale. 6. Imdur ER 120 mg p.o. q.a.m. 7. Levothyroxine 50 mcg p.o. daily. 8. Lidoderm patch. 9. Metoprolol XL 50 mg p.o. b.i.d. 10. Oxycodone 10 mg p.o. 4 times a day p.r.n. pain. 11. Protonix 80 mg p.o. b.i.d. 12. Ultram 50 mg p.o. q.6 hours p.r.n. pain. 13. Atorvastatin 80 mg p.o. q.p.m. PHYSICAL EXAMINATION: He is overweight. Temperature 97.9, most recent blood pressure 152/72, heart rate in the 60s, respiratory rate 20, oxygen saturation is 98% on 3 L by nasal cannula. Neurological Exam: He has mild right central pattern facial weakness. He has mild dysarthria. Eye movements are full. He has a right pronator drift, but has otherwise resistive strength in the right arm. There is pain with testing about the left shoulder, but strength is otherwise normal. He has normal strength in the left leg and good resistive strength proximally and distally in the right leg. Finger taps are slow and clumsy in the right hand. Pin discrimination is perhaps slightly decreased in the right cheek relative to the left. Pin discrimination in the limbs is symmetric. He is able to rise from a chair without the use of his arms 2 or 3 times, but then fatigued. He is alert and oriented with intact memory and fluent language. LABORATORY DATA/DIAGNOSTIC STUDIES: Included an MRI scan of the brain, which I reviewed and reveals an acute infarction in the left posterior limb of the internal capsule. It is measured at about 6 mm in diameter. There are also some chronic appearing white matter changes consistent with mild chronic ischemic changes. MR angiogram of the brain yesterday revealed no significant vascular abnormalities. Carotid ultrasound from 05/21/18 revealed mild atherosclerotic plaque in the carotid bulbs, but no significant stenosis bilaterally. Transthoracic echocardiogram was performed and reveals normal left ventricular chamber size, ejection fraction 55% to 60%, mildly dilated left atrium. Bubble study was negative. Other laboratory studies today include a stable CBC with a hemoglobin of 10.3, platelet count of 188,000. Chemistries from today notable for BUN at 30 and creatinine 2.45 which is stable compared to yesterday when it was 2.46. His cholesterol yesterday was 139 and LDL 67. 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 He carries the major risk factors of diabetes with hypertension. There is no evidence of significant large vessel disease or of cardioembolic disease. I recommend continued dual antiplatelet therapy for about 30 days and then switch to Plavix monotherapy. His statin is adequately controlled and his lipids. There is no evidence of cardioembolic disease. I would recommend he be reevaluated by the physical medicine rehab unit to see if they feel he is a candidate. We talked about prognosis a little bit. I told him most of the recovery takes place within the first 6 months and that early physical and other therapy is important to maximize his recovery. [id number]/CPS #: [id number] MTDD
[2018-05-23] MEDS: Heparin VIAL(*) 5000 UNITS/ML VIAL (FIVE THOUSAND) SUBCUT SCH ×3 (05:45→21:48)
[2018-05-23] MEDS: Levothyroxine TAB* 50 MCG TAB PO SCH (05:45)
[2018-05-23] MEDS: Albuterol/Ipratropium RESP(NF) MDI (Combivent Respimat) INH SCH ×2 (07:12→20:02)
--- NOTE | 2018-05-23 08:03 | PN ---
Subjective Date of Service: 05/23/18 Interval History: Feels good today, thinks he is getting better. Speech feels improved, as does strength. Notes that he leans towards the right when he transfers from bed to chair but also says he has had trouble with balance for years due to diabetic neuropathy. He is anxious to get to rehab. He expresses frustration with being sick so often and agrees much of his ailments are due to diabetes. We talked extensively about vasculopathies and diabetes. He is especially upset about his inability to get an erection and his inability to take viagra due to being on imdur. Family History: Unchanged from Admission Social History: Unchanged from Admission Past Medical History: Unchanged from Admission Objective Active Medications: Acetaminophen (Tylenol Tab*) 650 mg PO Q4H PRN PRN Reason: FEVER/PAIN Albuterol (Ventolin Hfa Inhaler*) 1 puff INH Q4H PRN PRN Reason: SHORTNESS OF BREATH Last Admin: 05/22/18 07:47 Dose: 1 puff Albuterol/Ipratropium (Combivent Respimat(Nf)) 1 puff INH BID [facility]; Protocol Last Admin: 05/23/18 07:12 Dose: Not Given Alprazolam (Xanax Tab*) 0.5 mg PO BID PRN PRN Reason: ANXIETY Last Admin: 05/21/18 22:40 Dose: 0.5 mg Aspirin (Aspirin Ec Tab*) 81 mg PO QAM [facility] Last Admin: 05/22/18 09:20 Dose: 81 mg Atorvastatin Calcium (Lipitor*) 80 mg PO QPM [facility] Last Admin: 05/22/18 18:05 Dose: 80 mg Cholecalciferol (Vitamin D Tab*) 2,000 units PO DAILY [facility] Last Admin: 05/22/18 09:20 Dose: 2,000 units Clopidogrel Bisulfate (Plavix Tab*) 75 mg PO DAILY [facility] Last Admin: 05/22/18 09:20 Dose: 75 mg Dextrose (D50w Syringe 50 Ml*) 12.5 gm IV PUSH .FOR FS < 60 - SS PRN PRN Reason: FS < 60 Gabapentin (Neurontin Cap(*)) 300 mg PO QID [facility] Last Admin: 05/22/18 21:03 Dose: 300 mg Heparin Sodium (Porcine) (Heparin Vial(*)) 5,000 units SUBCUT Q8HR [facility] Last Admin: 05/23/18 05:45 Dose: 5,000 units Insulin Glargine (Lantus(*)) 60 units SUBCUT DAILY [facility] Last Admin: 05/22/18 09:18 Dose: 60 unit Insulin Human Lispro (Humalog*) 0 units SUBCUT AC [facility]; Protocol Last Admin: 05/22/18 18:06 Dose: 3 unit Insulin Human Lispro (Humalog*) 0 units SUBCUT AC [facility]; Protocol Last Admin: 05/22/18 18:06 Dose: 3 unit Isosorbide Mononitrate (Imdur Er Tab*) 120 mg PO QAM [facility] Last Admin: 05/22/18 09:20 Dose: 120 mg Levothyroxine Sodium (Synthroid Tab*) 50 mcg PO 0600 [facility] Last Admin: 05/23/18 05:45 Dose: 50 mcg Lidocaine (Lidoderm 5% Patch*) 1 patch TRANSDERM DAILY [facility] Last Admin: 05/22/18 09:21 Dose: Not Given Metoprolol Succinate (Toprol Xl Tab*) 50 mg PO BID [facility] Last Admin: 05/22/18 21:02 Dose: 50 mg Mometasone Furoate (Asmanex 220 Mcg Mdi *) 1 puff INH DAILY [facility]; Protocol Last Admin: 05/22/18 07:48 Dose: 1 puff Multivitamins/Minerals (Theragran/Minerals Tab*) 1 tab PO DAILY [facility] Last Admin: 05/22/18 09:21 Dose: 1 tab Nystatin (Nystatin Top Powder*) 1 applic TOPICAL TID PRN PRN Reason: RASH Ondansetron HCl (Zofran Inj*) 4 mg IV Q4H PRN PRN Reason: NAUSEA/VOMITING Ondansetron HCl (Zofran Tab*) 4 mg PO TID PRN PRN Reason: NAUSEA/VOMITING Oxycodone HCl (Roxycodone Tab*) 10 mg PO QID PRN PRN Reason: PAIN Pantoprazole Sodium (Protonix Tab (Nf)) 80 mg PO BID [facility] Last Admin: 05/22/18 21:16 Dose: 80 mg Pharmacy Profile Note (Lidocaine Patch Remove*) 1 note PATCH OFF 2100 [facility] Last Admin: 05/22/18 21:07 Dose: Not Given Tramadol HCl (Ultram*) 50 mg PO Q6HR PRN PRN Reason: PAIN Vital Signs - 8 hr 05/23/18 05/23/18 05/23/18 03:21 03:29 03:30 Temperature 98.1 F Pulse Rate 59 Respiratory 22 18 18 Rate Blood Pressure 149/71 (mmHg) O2 Sat by Pulse 97 Oximetry Oxygen Devices in Use Now: None Appearance: alert, sitting up in bed, no distress Eyes: No Scleral Icterus Ears/Nose/Mouth/Throat: NL Teeth, Lips, Gums Neck: NL Appearance and Movements; NL JVP Respiratory: Symmetrical Chest Expansion and Respiratory Effort Skin: No Rash or Ulcers Neurological: Alert and Oriented x 3, - - speech is slow and intentional but clear and appropriate. right arm is just slightly weaker than left. Result Diagrams: 05/22/18 05:22 05/22/18 05:22 Assess/Plan/Problems-Billing Mr Loaiza is a 67 yo M who has a h/o stage III CKD, CAD, CHF, HTN, RADU and type II DM who presented to the ER with c/o R sided weakness and slurred speech and was admitted for an acute CVA. - Patient Problems (1) Acute thalamic infarction Current Visit: Yes Status: Acute Code(s): I63.9 - CEREBRAL INFARCTION, UNSPECIFIED SNOMED Code(s): 037494383 Comment: plan for dual antiplatelet therapy x 30 days, then plavix monotherapy evaluated by PT/OT/speech; awaiting PMRU evaluation bubble study negative, no large vessel disease on MRA (2) Stable angina Current Visit: Yes Status: Acute Code(s): I20.8 - OTHER FORMS OF ANGINA PECTORIS SNOMED Code(s): 294636264 Comment: he thinks he would rather be able to take viagra and have sex and have more poorly controlled angina than be on imdur I suggested he discuss this with his and then Dr. Malone at his next appointment after he goes home from rehab For now, continue imdur and nitro prn (3) CAD (coronary artery disease) Current Visit: Yes Status: Acute Code(s): I25.10 - ATHSCL HEART DISEASE OF [place] CORONARY ARTERY W/O ANG PCTRS SNOMED Code(s): 21750397 Comment: continue asa, statin, BB, nitrates (4) Depression with anxiety Current Visit: Yes Status: Acute Comment: Continue xanax prn. Continue supportive care. (5) Diabetes Current Visit: Yes Status: Acute Code(s): E11.9 - TYPE 2 DIABETES MELLITUS WITHOUT COMPLICATIONS SNOMED Code(s): 56412678 Comment: A1c 04/2018 was 8.7% continue lantus and monitor sugars Continue lispro sliding scale counseled on dietary changes and weight loss as the most effective treatment for diabetes (6) HTN (hypertension) Current Visit: Yes Status: Acute Code(s): I10 - ESSENTIAL (PRIMARY) HYPERTENSION SNOMED Code(s): 20829971 Comment: Allowing the patient to be hypertensive Plan to add back amlodipine at discharge (7) RADU (obstructive sleep apnea) Current Visit: No Status: Acute Priority: High Code(s): G47.33 - OBSTRUCTIVE SLEEP APNEA (ADULT) (PEDIATRIC) SNOMED Code(s): 22893501
[2018-05-23] MEDS: Mometasone 220 MCG MDI INH SCH (09:22)
[2018-05-23] MEDS: Insulin LISPRO* 1 UNITS UNIT SUBCUT SCH ×6 (09:40→17:50)
[2018-05-23] MEDS: Insulin GLARGINE(*) 1 UNITS UNIT SUBCUT SCH (09:42)
[2018-05-23] MEDS: Multivitamins/Minerals TAB PO SCH (09:49)
[2018-05-23] MEDS: Aspirin EC TAB* 81 MG TAB.EC PO SCH (09:49)
[2018-05-23] MEDS: Gabapentin CAP(*) 300 MG PO SCH ×4 (09:52→21:47)
[2018-05-23] MEDS: Cholecalciferol TAB* 1000 UNITS PO SCH (09:52)
[2018-05-23] MEDS: Clopidogrel TAB* 75 MG PO SCH (09:52)
[2018-05-23] MEDS: Metoprolol Succinate XL TAB* 50 MG PO SCH ×2 (09:54→21:48)
[2018-05-23] MEDS: Isosorbide Mononitrate ER TAB* 60 MG PO SCH (09:54)
[2018-05-23] MEDS: CMCS: Pantoprazole TAB (NF) 40 MG TAB PO SCH ×2 (09:55→21:48)
[2018-05-23] MEDS: Lidocaine PATCH 5%* 1 PATCH TRANSDERM SCH (09:56)
[2018-05-23] MEDS: Atorvastatin* 80 MG TAB PO SCH (17:53)
[2018-05-23] MEDS: Lidocaine Patch REMOVE* 1 NOTE MISC PATCH OFF SCH (21:48)
[2018-05-24] MEDS: Levothyroxine TAB* 50 MCG TAB PO SCH (05:34)
[2018-05-24] MEDS: Heparin VIAL(*) 5000 UNITS/ML VIAL (FIVE THOUSAND) SUBCUT SCH ×2 (05:35→13:28)
[2018-05-24] MEDS: Mometasone 220 MCG MDI INH SCH (07:15)
[2018-05-24] MEDS: Albuterol/Ipratropium RESP(NF) MDI (Combivent Respimat) INH SCH (07:16)
[2018-05-24] MEDS: Insulin GLARGINE(*) 1 UNITS UNIT SUBCUT SCH (09:48)
[2018-05-24] MEDS: Insulin LISPRO* 1 UNITS UNIT SUBCUT SCH ×6 (09:49→17:57)
[2018-05-24] MEDS: Cholecalciferol TAB* 1000 UNITS PO SCH (09:53)
[2018-05-24] MEDS: Aspirin EC TAB* 81 MG TAB.EC PO SCH (09:53)
[2018-05-24] MEDS: Clopidogrel TAB* 75 MG PO SCH (09:54)
[2018-05-24] MEDS: Gabapentin CAP(*) 300 MG PO SCH ×3 (09:55→16:39)
[2018-05-24] MEDS: Metoprolol Succinate XL TAB* 50 MG PO SCH (09:56)
[2018-05-24] MEDS: Isosorbide Mononitrate ER TAB* 60 MG PO SCH (09:56)
[2018-05-24] MEDS: Multivitamins/Minerals TAB PO SCH (09:56)
[2018-05-24] MEDS: CMCS: Pantoprazole TAB (NF) 40 MG TAB PO SCH (10:02)
[2018-05-24] MEDS: Lidocaine PATCH 5%* 1 PATCH TRANSDERM SCH (12:02)
[2018-05-24] MEDS ORDERED: Furosemide IV* 10 MG/ML VIAL (40 MG) IV ONE (13:41)
[2018-05-24] MEDS ORDERED: Furosemide TAB* 40 MG PO SCH (14:00)
[2018-05-24 15:26] VITALS: BP 160/83
[2018-05-24] MEDS: Atorvastatin* 80 MG TAB PO SCH (17:57)
--- NOTE | 2018-05-25 02:31 | DS ---
ADDENDUM INCLUDED ON THIS REPORT CC: Aditya Weston NP; Dr. Loya; Dr. Craven * DISCHARGE SUMMARY: DATE OF ADMISSION: 05/21/18 DATE OF DISCHARGE: 05/24/18 PRINCIPAL DISCHARGE DIAGNOSIS: Acute left thalamic cerebrovascular accident. SECONDARY DISCHARGE DIAGNOSES: 1. Type 2 diabetes. 2. Chronic kidney disease. 3. Hypertension. 4. Obstructive sleep apnea. 5. Multiple myeloma. 6. Chronic diastolic heart failure. 7. Diabetic neuropathy. 8. Coronary artery disease status post PCI. 9. Gastroesophageal reflux disease. 10. History of melanoma. 11. History of nephrolithiasis. 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 13. Depression and anxiety. DISCHARGE MEDICATIONS: 1. Imdur 120 mg daily. 2. Aspirin 81 mg daily. 3. Omeprazole 80 mg daily. 4. Amlodipine 5 mg daily. 5. 70/30 45 units at lunch. 6. NovoLog 20 units with breakfast. 7. NovoLog 70/30 30 units with dinner. 8. Oxycodone 10 mg q.i.d. p.r.n. pain. 9. Atorvastatin 80 mg nightly. 10. Nystatin powder t.i.d. p.r.n., rash. 11. Lasix 40 mg daily. 12. Mometasone 1 puff inhaled daily. 13. Tramadol 50 mg q.6 p.r.n. pain. 14. Gabapentin 300 mg q.i.d. 15. Multivitamin daily. 16. Cholecalciferol 2000 units daily. 17. Metoprolol XL 50 mg b.i.d. 18. Nitroglycerin 0.4 sublingual q. 5 minutes p.r.n. chest pain. 19. Albuterol 1 puff inhaled q.4 p.r.n., wheezing. 20. Lidocaine patch transdermal daily. 21. Alprazolam b.i.d. p.r.n. anxiety. 22. Lantus 60 units daily. 23. Zofran 4 mg p.o. t.i.d. as needed for nausea. 24. Levothyroxine 50 mcg daily. 25. Plavix 75 mg daily. PHYSICAL EXAM: At the time of discharge, temperature 98.2, heart rate 76, respiratory rate 20, pulse ox 94% on room air, blood pressure 143/78. General: Alert and well-appearing man in no distress, sitting up in the chair. HEENT: Pupils equal, round, and reactive to light. No nystagmus. Oral mucosa is moist. Tongue is midline. No pharyngeal exudates. Face is symmetric. Neck: No JVP. No cervical or supraclavicular adenopathy. Chest: Regular rate and rhythm. No murmurs. PMI nondisplaced. Lungs: Clear bilaterally. Abdomen: Soft, nontender, nondistended. No guarding or rebound. No CVA tenderness. Extremities: 2+ pitting edema to the knees. Strength is 4/5 in the right upper extremity, 5/5 in all other upper extremities. Neurologic: Speech is clear and articulate. He follows all commands both simple and complex. He answers my questions appropriately. His sensation is intact. His balance is slightly impaired with some lean towards the right. PERTINENT DATA: Transthoracic echocardiogram on 05/21/18 showed ejection fraction of 55% to 60%. No PFO. Bubble study is negative. No significant valvular abnormality is noted. Head MRA, no aneurysm, vascular malformation, occlusion, stenosis, or visualized intracranial circulation. MRI findings are consistent with an acute focal infarction measuring 6 mm at the left thalamus. In addition, there is mild chronic-appearing periventricular and subcortical white matter microvascular disease. HOSPITAL COURSE BY PROBLEM: 1. Acute left thalamic CVA. Unfortunately, he presented to the emergency department 4-1/2 hours after onset of symptoms excluding him from candidacy for tPA. He was evaluated by Dr. Araujo emergently who recommended the studies that were obtained and recommended a Plavix load and continuing aspirin. He has continued on aspirin, Plavix, and statin and should be for 30 days after which he should be continued on Plavix only. He underwent PT, OT, and speech evaluation and was improving already at the time of discharge. He is being discharged to [facility] for ongoing physical therapy. He was counseled extensively on modifiable secondary risk factors including improved control of diabetes, blood pressure and active lifestyle. He is a nonsmoker. 2. Chronic kidney disease. His creatinine was at baseline during this admission which appears to be approximately 2.5. 3. Chronic stable angina. He does report stable angina for sometime at home. He follows with Dr. Malone for this. Unfortunately, he is not a good candidate for left heart catheterization electively due to his renal failure, so he is medically optimized on nitroglycerin and Imdur. 4. Type 2 diabetes. He is on an unusual regimen of Lantus and 70/30, and he will be continued on this. This was verified with his pharmacy. 5. Diabetic neuropathy. He was continued on gabapentin. 6. Chronic diastolic heart failure. At the time of discharge, he does have lower extremity edema, but no oxygen requirement. His Lasix is being resumed. DISPOSITION: Mr. Loaiza is being discharged to [facility] on 05/24/18. Please do not hesitate to contact me with questions or concerns about his admission or discharge. TIME SPENT: Forty minutes were spent on this discharge with 20 minutes spent face- to-face with the patient. ADDENDUM: I note that his gabapentin dose is too high for his renal failure. I am discontinuing his current dose of gabapentin and reducing it to 600 mg once daily. [id number]/[facility] #: [id number]/CPS #: [id number] [facility]
--- NOTE | 2018-05-25 02:48 | DS ---
DISCHARGE SUMMARY: ADDENDUM: I note that his gabapentin dose is too high for his renal failure. I am discontinuing his current dose of gabapentin and reducing it to 600 mg once daily. [id number]/[facility] #: [id number] MTDD
== END 2018-05-24 18:15 | DRG 45 ==
LOC: ED 12:41 → MEDTELE 17:31 → OBSVTOIN 21:17 → INTOOBSV 21:17 → OBSVTOIN 05-22 21:17
PROVIDERS: ADMIT Hospitalist; ATTEND Internal Medicine
DX: I63.9 Cerebral infarction, unspecified (principal); G81.91 Hemiplegia, unspecified affecting right dominant side; I13.0 Hypertensive heart and chronic kidney disease with heart failure and stage 1 through stage 4 chronic kidney disease, or unspecified chronic kidney disease; I50.32 Chronic diastolic (congestive) heart failure; C90.01 Multiple myeloma in remission; Z68.41 Body mass index [BMI] 40.0-44.9, adult; R20.0 Anesthesia of skin; J45.909 Unspecified asthma, uncomplicated; K21.9 Gastro-esophageal reflux disease without esophagitis; M19.012 Primary osteoarthritis, left shoulder; F41.9 Anxiety disorder, unspecified; F32.9 Major depressive disorder, single episode, unspecified; F40.240 Claustrophobia; R29.703 NIHSS score 3; E11.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mellitus with diabetic chronic kidney disease; G47.33 Obstructive sleep apnea (adult) (pediatric); E11.40 Type 2 diabetes mellitus with diabetic neuropathy, unspecified; F41.8 Other specified anxiety disorders; I25.118 Atherosclerotic heart disease of native coronary artery with other forms of angina pectoris; R47.81 Slurred speech; E03.9 Hypothyroidism, unspecified; N18.3 Chronic kidney disease, stage 3 (moderate); E78.5 Hyperlipidemia, unspecified; I65.22 Occlusion and stenosis of left carotid artery; E66.3 Overweight; Z79.82 Long term (current) use of aspirin; Z98.42 Cataract extraction status, left eye; Z88.8 Allergy status to other drugs, medicaments and biological substances; Z88.0 Allergy status to penicillin; Z87.442 Personal history of urinary calculi; Z95.5 Presence of coronary angioplasty implant and graft; Z98.41 Cataract extraction status, right eye; Z82.49 Family history of ischemic heart disease and other diseases of the circulatory system; Z83.3 Family history of diabetes mellitus; Z72.89 Other problems related to lifestyle; Z79.4 Long term (current) use of insulin; Z85.820 Personal history of malignant melanoma of skin; Z79.02 Long term (current) use of antithrombotics/antiplatelets
CPT/HCPCS: 36415; 70450; 70544; 70551; 71045; 80048; 80053; 80061; 81003; 81015; 82784; 83605; 83883; 84155; 84165; 84484; 85025; 85610; 85730; 86850; 86900; 86901; 87086; 93005; 93306; 93880; 94640; 99284; A9270-GY; C8929; G0378; G8999-GN-CJ; G9158-GN-CI; G9186-GN-CJ; J1644; J2060

== ENCOUNTER 2018-05-24 14:12 | Inpatient (IN) | payer BC, MEDICARE ==
[2018-05-24] MEDS ORDERED: Docusate CAP* 100 MG PO PRN (14:26)
[2018-05-24] MEDS ORDERED: Senna TAB PO PRN (14:26)
[2018-05-24] MEDS ORDERED: traMADol TAB* 50 MG PO PRN (14:32)
[2018-05-24] MEDS ORDERED: oxyCODONE TAB* 5 MG TAB PO PRN (14:33)
[2018-05-24] MEDS ORDERED: Nitroglycerin TAB 0.4 MG* 0.4 MG TAB SL PRN (14:38)
[2018-05-24] MEDS ORDERED: Nystatin TOP POWDER* 15 GM BTL TOPICAL PRN (14:39)
[2018-05-24] MEDS ORDERED: ALPRAZolam TAB* 0.5 MG PO PRN (14:41)
[2018-05-24] MEDS ORDERED: Ondansetron ODT TAB* 4 MG SL PRN (14:42)
[2018-05-24] MEDS ORDERED: Dextrose 50% Syringe 50 ML* 25 GM/50 ML SYRINGE IV PUSH PRN (14:51)
--- NOTE | 2018-05-24 18:19 | HP ---
CC: Dr. Araujo; Aditya Weston NP; Dr. Craven; Dr. Loya; Dr. Malone REHABILITATION ADMISSION NOTE: DATE OF ADMISSION: 05/24/18 NEUROLOGIST: Dr. Araujo. PRIMARY CARE PROVIDER: Aditya Weston NP TELEGRAPH REPEATER INSTALLER: Dr. Craven. HEMATOLOGY/ONCOLOGY: Dr. Loya. CARDIOLOGY: Dr. Malone. REASON FOR ADMISSION: Stroke. HISTORY OF PRESENT ILLNESS: This is a 67-year-old man with coronary artery disease, hypertension, and diabetes, who was admitted on 05/21/18 after noticing some increased right-sided weakness at home and difficulty speaking. CT of the head was negative as well as initial MRA. He cannot have a CTA because of his chronic renal disease. Carotid Doppler showed mild plaquing, but no significant stenosis. He was seen by Dr. Araujo and given a Plavix load of 300 mg and then put on dual-antiplatelet therapy with aspirin and Plavix. MRI of the brain later showed a left thalamic infarct and mild chronic white matter ischemic changes. Transthoracic echo showed moderate LVH, ejection fraction 55% to 60% and a negative bubble study. While in the hospital, he has been monitored on telemetry. He had some exertional chest pain on 05/22/18 that was treated with nitroglycerin sublingually. He has had angina mowing the lawn regularly at home. Troponins were negative. EKG showed no changes. Prior to admission, he was independent with ambulating using a single-point cane. With physical therapy, he required contact guard for transfers and ambulation using a rolling walker up to 50 feet. With occupational therapy, he required a moderate amount of assistance for lower body dressing and 2 mod assistance for toileting and showering. With Speech, he has been noted to have a [id number] dysarthria. Initially, he was allowed to have permissive hypertension. He has been restarted on most of his medications except for Lasix. He has also been on sliding scale insulin instead of NovoLog 70/30 at meal times. PAST MEDICAL HISTORY: 1. Coronary artery disease, status post multiple stents with left heart cath in September 2017. He has been noted to have diastolic dysfunction. 2. Hypertension. 3. Insulin-dependent diabetes mellitus, type 2. 4. Obstructive sleep apnea. He does not use CPAP. 5. COPD. He uses oxygen 3 L at night. 6. History of multiple myeloma, status post stem cell transplant. 7. Chronic kidney disease with questionable bilateral renal infarcts, followed by Dr. Craven. 8. GERD. 9. Melanoma. 10. History of nephrolithiasis. 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 12. Depression and anxiety. 13. Status post cataract surgery. 14. Status post carpal tunnel releases and trigger finger releases with chronic numbness of his right hand. 15. Hypothyroidism. 16. History of vertigo. MEDICATIONS: 1. Mometasone 220 mcg 1 puff q. day. 2. Tramadol 50 mg q.6 hours p.r.n. 3. Oxycodone 10 mg four times daily p.r.n. 4. Protonix 80 mg b.i.d. 5. Lasix 40 mg q. day; has been on hold. 6. Atorvastatin 80 mg q.a.m. 7. Amlodipine 5 mg q. day; has been on hold. 8. Gabapentin 300 mg four times daily. 9. Aspirin 81 mg q. day. 10. Multivitamin q. day. 11. Cholecalciferol 2000 units q. day. 12. Metoprolol XL 50 mg b.i.d. 13. Nitro sublingual p.r.n. 14. Nystatin topically t.i.d. p.r.n. 15. Albuterol MDI 1 puff q.4 hours p.r.n. 16. Lidoderm patch to the left upper back q. day p.r.n. 17. Imdur ER 120 mg q. day. 18. Alprazolam 0.5 mg b.i.d. p.r.n. 19. Lantus insulin 60 units q.a.m. 20. Lispro sliding scale insulin for carb counting and by sliding scale. 21. Zofran 4 mg t.i.d. p.r.n. 22. Combivent 1 puff b.i.d. 23. Levothyroxine 50 mcg q. day. 24. Tylenol p.r.n. 25. Plavix 75 mg q. day. 26. Heparin 5000 units q.8 hours for DVT prophylaxis. ALLERGIES: AMOXICILLIN, CLAVULANIC ACID. FAMILY HISTORY: Significant for father with coronary artery disease and diabetes. SOCIAL HISTORY: He lives with his , Charo, who is his healthcare proxy if he cannot make decisions for himself. He quit smoking about 10 years ago. He rarely drinks alcohol. 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 His home has 1 level and has 3 steps to enter. REVIEW OF SYSTEMS: See history of present illness and past medical history. The remainder of a 13-system review was completed. No other significant findings. PHYSICAL EXAMINATION GENERAL: Well developed, well nourished, overweight. Mental Status: Alert and appropriate. He is oriented x3. VITAL SIGNS: Temperature 98.2, heart rate 76, respirations 20, oxygenation 94% on room air, blood pressure 143/78. HEENT: Normocephalic, atraumatic. Oropharynx is clear. Moist mucous membranes. LUNGS: Clear to auscultation bilaterally. HEART: Regular rate and rhythm. ABDOMEN: Active bowel sounds. Soft, nontender, nondistended. EXTREMITIES: No clubbing, cyanosis, or edema. He has scars from prior surgeries. MUSCULOSKELETAL: He has functional range of motion of all of his major joints. NEUROLOGICAL: Cranial nerves II through XII are intact. Upper and lower extremity motor shows 4/5 strength in the right upper and lower extremity with diminished sensation compared to the left. He reports the right hand has been numb since his prior hand surgeries. The left side shows 5/5 motor throughout with normal sensation. He has some diminished proprioception in the right great toe. IMPRESSION: A 67-year-old man with left thalamic stroke and right hemiparesis. He will be readmitted to [facility] so he can return to independent living. PLAN: 1. Stroke. Continue with Plavix and aspirin. The plan is after 30 days to switch to Plavix monotherapy. Continue with Lipitor. We can start to control his blood pressure better and consider when it is appropriate to add back in Lasix and amlodipine. Follow up with Neurology. 2. Coronary artery disease. Continue with aspirin, Lipitor, and Imdur. Heart - healthy diet. Add in his other antihypertensives as appropriate. 3. Chronic kidney disease. Follow up with Dr. Craven. 4. Hypothyroidism. Continue with levothyroxine and recommendations to have his TSH rechecked in 2 weeks. 5. Diabetes mellitus. Continue with Lantus insulin for now and sliding scale lispro with meals. See if we can get him on a more regular regimen. 6. Impaired mobility. He will be seen by Physical Therapy for transfer, gait, and stair training using the least restrictive assistive device. 7. Impaired self-care. He will be seen by Occupational Therapy for ADL training and equipment evaluation. 8. Dysarthria. He will be seen by Speech Therapy. 9. DVT prophylaxis. Continue with subcutaneous heparin. 10. Advance directives. He is a full code. His is his healthcare proxy if he cannot make decisions for himself. ESTIMATED LENGTH OF STAY: 1 week. [id number]/CPS #: [id number] CAM
--- NOTE | 2018-05-24 19:00 | PN ---
Progress Note - Progress Note Date of Service: 05/24/18 SOAP: Subjective: []Developed sudden weakness in right leg and right arm. Was walking in mall when symptoms occurred. Came to ER and MRI with L thalamus infarct 0.6 cm. MRI and Doppler without significant large vessel disease. Placed on ASA and Plavix. Has has had improved use of right arm, leg is still difficult. Health prior to this event had been stable. Chronic angina managed with NTG for mowing lawn but otherwise had been free of chest pain. PMHx: Myeloma, IgG Lambda 1. Sudden chest pain without trauma. CT chest on 06/14/15 - fracture in sixth rib, review of prior CT on 05/26/15 with 2 cm lytic lesion at location of fracture. No other bone lesions. CT chest 2004 did not show the lytic lesion. 2. Serology: M-spike 2.5 cm IgG lambda, SFLC neg, B2M 4.28 in CRI 3. 05/2015 Bone marrow biopsy 17% plasma cells 4. Skeletal Survey negative except for know rib fracture. 5. CyBorD started 09/24/15, on hold d/t pending BM transplant 6. 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 Day #80, BmBx: no myeloma, M-spike 0.5 mg/dl 8. 04/2016 Skeletal survey - Lytic lesions proximal humerus, new. 9. 05/2016 Revlimid maintenance 10 mg po daily. 10. 11/2016 Rev held d/t neuro symptoms 11. Admission 10/2017 with left flank pain - CT with question of renal infarct, ddimer negative. 12. Revlimid held 10/2017 - no therapy since 02/2018 slow rise in M-spike, BmBx: 8% PC CRI - progressive and followed by Dr. Craven. Hypothyriod - Recent increase in Levothyroxine to 50 mcg GERD DM II CAD - Refractory pain, not candidate for stent 2nd to CRI. Acetaminophen (Tylenol Tab*) 650 mg PO Q4H PRN PRN Reason: FEVER > 101 Albuterol (Ventolin Hfa Inhaler*) 1 puff INH Q4H PRN PRN Reason: SOB/WHEEZING Albuterol/Ipratropium (Combivent Respimat(Nf)) 1 puff INH RT.BID [facility]; Protocol Alprazolam (Xanax Tab*) 0.5 mg PO BID PRN PRN Reason: ANXIETY Aspirin (Aspirin 81 Mg Chew Tab*) 81 mg PO DAILY [facility] Atorvastatin Calcium (Lipitor*) 80 mg PO 1700 [facility] Cholecalciferol (Vitamin D Tab*) 2,000 units PO DAILY [facility] Clopidogrel Bisulfate (Plavix Tab*) 75 mg PO DAILY [facility] Dextrose (D50w Syringe 50 Ml*) 12.5 gm IV PUSH .FOR FS < 60 - SS PRN PRN Reason: FS < 60 Docusate Sodium (Colace Cap*) 100 mg PO BID PRN PRN Reason: CONSTIPATION Gabapentin (Neurontin Cap(*)) 300 mg PO QID [facility] Heparin Sodium (Porcine) (Heparin Vial(*)) 5,000 units SUBCUT Q8HR [facility] Insulin Glargine (Lantus(*)) 60 units SUBCUT Q24H [facility] Insulin Human Lispro (Humalog*) 0 units SUBCUT AC [facility]; Protocol Insulin Human Lispro (Humalog*) 1 units SUBCUT AC [facility]; Protocol Isosorbide Mononitrate (Imdur Er Tab*) 120 mg PO DAILY [facility] Levothyroxine Sodium (Synthroid Tab*) 50 mcg PO DAILY@0600 [facility] Lidocaine (Lidoderm 5% Patch*) 1 patch TRANSDERM DAILY [facility] Metoprolol Succinate (Toprol Xl Tab*) 50 mg PO BID [facility] Mometasone Furoate (Asmanex 220 Mcg Mdi *) 1 puff INH DAILY [facility]; Protocol Multivitamins/Minerals (Theragran/Minerals Tab*) 1 tab PO DAILY [facility] Nitroglycerin (Nitroglycerin Tab 0.4 Mg*) 0.4 mg SL Q5M PRN PRN Reason: ANGINA Nystatin (Nystatin Top Powder*) 1 applic TOPICAL TID PRN PRN Reason: RASH Ondansetron HCl (Zofran Odt Tab*) 4 mg SL Q6H PRN PRN Reason: NAUSEA/VOMITING Oxycodone HCl (Roxycodone Tab*) 10 mg PO Q6H PRN PRN Reason: low back pain Pantoprazole Sodium (Protonix Tab (Nf)) 80 mg PO BID [facility] Pharmacy Profile Note (Lidocaine Patch Remove*) 1 note N/A 2100 [facility] Senna (Senokot Tab*) 2 tab PO BEDTIME PRN PRN Reason: CONSTIPATION Tramadol HCl (Ultram*) 50 mg PO Q6H PRN PRN Reason: PAIN Objective: [] Vital Signs Temp Pulse Resp BP Pulse Ox 99.5 F 71 18 167/70 98 05/24/18 18:50 05/24/18 18:50 05/24/18 18:50 05/24/18 19:00 05/24/18 18:50 HEENT - Pale, no oral lesions, no JVD CTA RRR S1S2 Obese NT ND Ext tr edema Neuro - did not do full exam, talking and good history, right arm movement is fine. Assessment: []67 year old with long standing MM status post transplant with recurrent low grade disease but has not required additional therapy. Course complicated by CRI that has been progressive, CAD with exertional angina. 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 Plan: []1. In PMRU and appears to be improving. 2. HTN continues, un sure how far from infarct more stringent blood pressure control is safe. 3. Myeloma. Will re-check staging studies. Serologic evaluation pending. Will send 24 hr urine as well given increase in Cr. 4. Will follow up on Sunday, call over weekend with any questions.
[2018-05-24] MEDS: Acetaminophen TAB* 325 MG PO PRN (19:14)
[2018-05-24] MEDS: Insulin LISPRO* 1 UNITS UNIT SUBCUT SCH ×2 (19:51→19:52)
[2018-05-24] MEDS: Atorvastatin* 80 MG TAB PO SCH (19:53)
[2018-05-24] MEDS: Gabapentin CAP(*) 300 MG PO SCH ×2 (19:53→21:28)
[2018-05-24] MEDS: PTO:Albuterol/Ipratropium RESP(NF) MDI (Combivent Respimat) INH SCH (20:25)
[2018-05-24] MEDS: Albuterol HFA INHALER* 8 gm MDI INH PRN (20:42)
[2018-05-24] MEDS: Metoprolol Succinate XL TAB* 50 MG PO SCH (21:28)
[2018-05-24] MEDS: CMCS: Pantoprazole TAB (NF) 40 MG TAB PO SCH (21:28)
[2018-05-24] MEDS: Heparin VIAL(*) 5000 UNITS/ML VIAL (FIVE THOUSAND) SUBCUT SCH (21:30)
[2018-05-24] MEDS: Lidocaine Patch REMOVE* 1 NOTE MISC SCH (21:33)
[2018-05-25] MEDS: Heparin VIAL(*) 5000 UNITS/ML VIAL (FIVE THOUSAND) SUBCUT SCH ×3 (06:00→21:38)
[2018-05-25] MEDS: Levothyroxine TAB* 50 MCG TAB PO SCH (06:00)
[2018-05-25 06:08] LABS: ABS Basophils 0.1 10^3/ul (0-0.2); ABS Eosinophils 0.2 10^3/ul (0-0.6); ABS Lymphocytes 1.5 10^3/ul (1.0-4.8); ABS Monocytes 0.5 10^3/ul (0-0.8); ABS Neutrophils 4.3 10^3/ul (1.5-7.7); ABS Nucleated RBC 0 10^3/ul; Eosinophil % 3.3 % (0-6); Hematocrit 33 % (42-52); Hemoglobin 10.9 g/dl (14.0-18.0); Mean Corpuscular HGB Conc 34 g/dl (31-36); Mean Corpuscular Hemoglobin 31 pg (27-31); Mean Corpuscular Volume 92 fL (80-94); Mean Platelet Volume 7.1 um3 (7.4-10.4); Nucleated Red Blood Cells % 0; Platelet Count 199 10^3/ul (150-450); Red Blood Count 3.54 10^6/ul (4.00-5.40); Red Cell Distribution Width 18 % (10.5-15); White Blood Count 6.5 10^3/ul (3.5-10.8)
[2018-05-25] MEDS: Isosorbide Mononitrate ER TAB* 60 MG PO SCH (07:42)
[2018-05-25] MEDS: Metoprolol Succinate XL TAB* 50 MG PO SCH ×2 (07:42→21:36)
[2018-05-25] MEDS: Multivitamins/Minerals TAB PO SCH (07:43)
[2018-05-25] MEDS: CMCS: Pantoprazole TAB (NF) 40 MG TAB PO SCH ×2 (07:43→21:36)
[2018-05-25] MEDS: Gabapentin CAP(*) 300 MG PO SCH ×4 (07:43→21:35)
[2018-05-25] MEDS: Cholecalciferol TAB* 1000 UNITS PO SCH (07:43)
[2018-05-25] MEDS: Clopidogrel TAB* 75 MG PO SCH (07:43)
[2018-05-25] MEDS: Aspirin 81 mg CHEW TAB* 81 MG TAB.CHEW PO SCH (07:43)
[2018-05-25] MEDS: Mometasone 220 MCG MDI INH SCH (07:47)
[2018-05-25] MEDS: PTO:Albuterol/Ipratropium RESP(NF) MDI (Combivent Respimat) INH SCH ×2 (07:48→20:20)
[2018-05-25] MEDS: Albuterol HFA INHALER* 8 gm MDI INH PRN (07:49)
[2018-05-25] MEDS ORDERED: Insulin GLARGINE(*) 1 UNITS UNIT SUBCUT SCH (09:00)
[2018-05-25] MEDS ORDERED: Insulin GLARGINE(*) 1 UNITS UNIT SUBCUT ONE (09:40)
[2018-05-25] MEDS: amLODIPine TAB* 5 MG PO SCH (10:18)
[2018-05-25] MEDS: Insulin LISPRO* 1 UNITS UNIT SUBCUT SCH ×7 (10:21→17:41)
[2018-05-25] MEDS: Furosemide TAB* 40 MG PO SCH (11:20)
[2018-05-25] MEDS: Lidocaine PATCH 5%* 1 PATCH TRANSDERM SCH (11:20)
--- NOTE | 2018-05-25 12:15 | PN ---
Progress Note Date of Service: 05/25/18 Note: MAURICE WEBER was visited. Nursing notes read and reviewed. Evaluations in progress. No chest pain, shortness of breath or abdominal pain. Has a rash behind his right ear that itches. He has a cream he uses at home for it. His is bringing it in. Current Medications: Active Medications Generic Name Dose Route Start Last Admin Trade Name Freq PRN Reason Stop Dose Admin Acetaminophen 650 mg 05/24/18 14:26 05/24/18 19:14 Tylenol Tab* PO 650 mg Q4H PRN Administration FEVER > 101 Albuterol 1 puff 05/24/18 14:39 05/25/18 07:49 Ventolin Hfa Inhaler* INH 1 puff Q4H PRN Administration SOB/WHEEZING Albuterol/Ipratropium 1 puff 05/24/18 19:00 05/25/18 07:48 Combivent Respimat(Nf) INH Not Given RT.BID [facility] Protocol Alprazolam 0.5 mg 05/24/18 14:41 Xanax Tab* PO BID PRN ANXIETY Amlodipine Besylate 5 mg 05/25/18 10:00 05/25/18 10:18 Norvasc Tab* PO 5 mg DAILY [facility] Administration Aspirin 81 mg 05/25/18 09:00 05/25/18 07:43 Aspirin 81 Mg Chew Tab* PO 81 mg DAILY [facility] Administration Atorvastatin Calcium 80 mg 05/24/18 17:00 05/24/18 19:53 Lipitor* PO Not Given 1700 [facility] Cholecalciferol 2,000 units 05/25/18 09:00 05/25/18 07:43 Vitamin D Tab* PO 2,000 units DAILY [facility] Administration Clopidogrel Bisulfate 75 mg 05/25/18 09:00 05/25/18 07:43 Plavix Tab* PO 75 mg DAILY [facility] Administration Dextrose 12.5 gm 05/24/18 14:51 D50w Syringe 50 Ml* IV PUSH .FOR FS < 60 - SS PRN FS < 60 Docusate Sodium 100 mg 05/24/18 14:26 Colace Cap* PO BID PRN CONSTIPATION Furosemide 40 mg 05/25/18 10:00 05/25/18 11:20 Lasix Tab* PO 40 mg DAILY [facility] Administration Gabapentin 300 mg 05/24/18 17:00 05/25/18 07:43 Neurontin Cap(*) PO 300 mg QID [facility] Administration Heparin Sodium (Porcine) 5,000 units 05/24/18 22:00 05/25/18 06:00 Heparin Vial(*) SUBCUT 5,000 units Q8HR [facility] Administration Insulin Glargine 70 units 05/26/18 09:00 Lantus(*) SUBCUT Q24H [facility] Insulin Human Lispro 0 units 05/24/18 16:30 05/25/18 10:22 Humalog* SUBCUT 6 units AC [facility] Administration Protocol Insulin Human Lispro 0 units 05/25/18 09:30 05/25/18 10:21 Humalog* SUBCUT 3 units AC [facility] Administration Protocol Isosorbide Mononitrate 120 mg 05/25/18 09:00 05/25/18 07:42 Imdur Er Tab* PO 120 mg DAILY [facility] Administration Levothyroxine Sodium 50 mcg 05/25/18 06:00 05/25/18 06:00 Synthroid Tab* PO 50 mcg DAILY@0600 [facility] Administration Lidocaine 1 patch 05/25/18 09:00 05/25/18 11:20 Lidoderm 5% Patch* TRANSDERM 1 patch DAILY [facility] Administration Metoprolol Succinate 50 mg 05/24/18 21:00 05/25/18 07:42 Toprol Xl Tab* PO 50 mg BID [facility] Administration Mometasone Furoate 1 puff 05/25/18 09:00 05/25/18 07:47 Asmanex 220 Mcg Mdi * INH 1 puff DAILY [facility] Administration Protocol Multivitamins/Minerals 1 tab 05/25/18 09:00 05/25/18 07:43 Theragran/Minerals Tab* PO 1 tab DAILY [facility] Administration Nitroglycerin 0.4 mg 05/24/18 14:38 Nitroglycerin Tab 0.4 Mg* SL Q5M PRN ANGINA Nystatin 1 applic 05/24/18 14:39 Nystatin Top Powder* TOPICAL TID PRN RASH Ondansetron HCl 4 mg 05/24/18 14:42 Zofran Odt Tab* SL Q6H PRN NAUSEA/VOMITING Oxycodone HCl 10 mg 05/24/18 14:33 Roxycodone Tab* PO Q6H PRN low back pain Pantoprazole Sodium 80 mg 05/24/18 21:00 05/25/18 07:43 Protonix Tab (Nf) PO 80 mg BID [facility] Administration Pharmacy Profile Note 1 note 05/24/18 21:00 05/24/18 21:33 Lidocaine Patch Remove* N/A 1 note 2100 [facility] Administration Senna 2 tab 05/24/18 14:26 Senokot Tab* PO BEDTIME PRN CONSTIPATION Tramadol HCl 50 mg 05/24/18 14:32 Ultram* PO Q6H PRN PAIN Vital Signs: Vital Signs Temp Pulse Resp BP Pulse Ox 97.4 F 58 18 177/87 100 05/25/18 06:06 05/25/18 06:11 05/25/18 07:43 05/25/18 06:11 05/25/18 06:06 Lab Results: Laboratory Results - last 24 hr 05/24/18 05/25/18 05/25/18 20:03 05:51 05:51 WBC 6.5 RBC 3.54 L Hgb 10.9 L Hct 33 L MCV 92 MCH 31 MCHC 34 RDW 18 H Plt Count 199 MPV 7.1 L Neut % (Auto) 65.4 Lymph % (Auto) 23.0 L Bertie % (Auto) 7.4 H Eos % (Auto) 3.3 Baso % (Auto) 0.9 Absolute Neuts (auto) 4.3 Absolute Lymphs (auto) 1.5 Absolute Monos (auto) 0.5 Absolute Eos (auto) 0.2 Absolute Basos (auto) 0.1 Absolute Nucleated RBC 0 Nucleated RBC % 0 Sodium 136 Potassium 4.1 Chloride 104 Carbon Dioxide 27 Anion Gap 5 BUN 32 H Creatinine 2.49 H Est GFR ( Amer) 31.5 Est GFR (Non-Af Amer) 26.0 BUN/Creatinine Ratio 12.9 Glucose 194 H POC Glucose (mg/dL) 212 H Calcium 9.0 Total Bilirubin 0.50 AST 11 L ALT 12 Alkaline Phosphatase 77 Total Protein 6.3 L Albumin 3.5 Globulin 2.8 Albumin/Globulin Ratio 1.3 05/25/18 05/25/18 07:17 11:46 WBC RBC Hgb Hct MCV MCH MCHC RDW Plt Count MPV Neut % (Auto) Lymph % (Auto) Bertie % (Auto) Eos % (Auto) Baso % (Auto) Absolute Neuts (auto) Absolute Lymphs (auto) Absolute Monos (auto) Absolute Eos (auto) Absolute Basos (auto) Absolute Nucleated RBC Nucleated RBC % Sodium Potassium Chloride Carbon Dioxide Anion Gap BUN Creatinine Est GFR ( Amer) Est GFR (Non-Af Amer) BUN/Creatinine Ratio Glucose POC Glucose (mg/dL) 185 H 270 H Calcium Total Bilirubin AST ALT Alkaline Phosphatase Total Protein Albumin Globulin Albumin/Globulin Ratio Exam: GEN: no acute distress. alert and appropriate. LUNGS: clear to auscultation bilaterally. CV: regular rate and rhythm. ABD: + bowel sounds. soft, non-tender, non-distended. EXT: no edema. No increased tone. NEURO: CN II-XII intact. Decreased sensation in RUE/RLE compared to left. Motor 4+/5 RUE/RLE. 5/5 LUE/LLE. Assessment/Plan: 67yo man with left thalamic stroke and right hemiparesis. #Left thalamic stroke - Plavix and aspirin for 30days then change to plavix monotherapy. Continue lipitor. PT/OT/Speech #Hypertension - initially allowed permissive hypertension. Will now add back in lasix and amlodipine. Continue metoprolol/imdur. #CAD - has NTG sl prn and used to angina with mowing lawn. Had 1 episode on acute service. Heart healthy diet and meds as above. #CKD - f/u with Dr. Craven #Diabetes mellitus - increase lantus to 70u qday. On ssI lispro for carb counting and sliding scale. Was on 70/30 at home with each meal, but this may now change. May be a good candidate for f/u with clinical informatics educator. He did not eat well at home. #DVT ppx - sc heparin #Advanced directives - Full code. is hcp. #Estimated LOS - IPOC today. 05/25/18 12:23
--- NOTE | 2018-05-25 12:36 | PMRUTEAM ---
PMRU: Team Meeting Current Status: Nursing: Current Status Skin Deviations [right Rash posterior ear, neck] Physical Therapy: Current Status Bed Mobility Assistance min assist Transfer Moblility Assistance Contact Guard Assist Ambulation Assistance Contact Guard Assist Ambulation Assistive Devices Rolling Walker Stairs Assistance not tested Stairs Recommended Devices Two Rails Number of Stairs 4 Occupational Therapy: Current Status Upper Body Dressing Supervision Lower Body Dressing Min Assist Bathing Min Assist Toileting Contact Guard Assist Toilet Transfer Contact Guard Assist Shower Transfer Contact Guard Assist Speech therapy: evaluation on progress. Goals: PHYSICAL THERAPY INITIAL GOALS: modified independent bed mobility, transfers, ambulation and stairs with single point cane. Occupational Therapy: Initial Goals Goals to be Completed in (Days 7-10 ) Upper Body Bathing Routine Modified Independent with Lower Body Bathing Routine Modified Independent with Upper Body Dressing Routine Independent Lower Body Dressing Routine Modified Independent with Toilet Hygeine and Clothing Modified Independent with Management Routine Toilet Transfer Routine Modified Independent with Step-In Shower Transfer Modified Independent with Routine Functional Transfers for ADL Modified Independent with Grooming Routine Independent Feeding Routine Independent Speech therapy initial goals: evaluation in progress. Care Plan: Diabetes mellitus - independent with fingersticks and insulin management. Education on appropriate diet. Medication self administration Hypertension - educate on monitoring Stroke education Medicine Note: Length of Stay: [10 days] Anticipated Discharge Destination: home Tentative Discharge Date: [06/04/18] Discharged to: [home]
[2018-05-25] MEDS: Atorvastatin* 80 MG TAB PO SCH (17:38)
[2018-05-25] MEDS: Lidocaine Patch REMOVE* 1 NOTE MISC SCH (21:38)
[2018-05-26] MEDS: Heparin VIAL(*) 5000 UNITS/ML VIAL (FIVE THOUSAND) SUBCUT SCH ×3 (06:10→21:20)
[2018-05-26] MEDS: Levothyroxine TAB* 50 MCG TAB PO SCH (06:10)
[2018-05-26] MEDS ORDERED: Triamcinolone 0.5% OINT * 15 GM TUBE TOPICAL PRN (08:50)
[2018-05-26] MEDS: Mometasone 220 MCG MDI INH SCH (08:54)
[2018-05-26] MEDS: PTO:Albuterol/Ipratropium RESP(NF) MDI (Combivent Respimat) INH SCH ×2 (08:54→20:57)
[2018-05-26] MEDS: amLODIPine TAB* 5 MG PO SCH (09:07)
[2018-05-26] MEDS: Cholecalciferol TAB* 1000 UNITS PO SCH (09:07)
[2018-05-26] MEDS: Aspirin 81 mg CHEW TAB* 81 MG TAB.CHEW PO SCH (09:07)
[2018-05-26] MEDS: Furosemide TAB* 40 MG PO SCH (09:08)
[2018-05-26] MEDS: Clopidogrel TAB* 75 MG PO SCH (09:08)
[2018-05-26] MEDS: Isosorbide Mononitrate ER TAB* 60 MG PO SCH (09:09)
[2018-05-26] MEDS: Metoprolol Succinate XL TAB* 50 MG PO SCH ×2 (09:10→20:36)
[2018-05-26] MEDS: CMCS: Pantoprazole TAB (NF) 40 MG TAB PO SCH ×2 (09:10→20:36)
[2018-05-26] MEDS: Multivitamins/Minerals TAB PO SCH (09:10)
[2018-05-26] MEDS: Insulin LISPRO* 1 UNITS UNIT SUBCUT SCH ×6 (09:12→18:15)
[2018-05-26] MEDS: Insulin GLARGINE(*) 1 UNITS UNIT SUBCUT SCH (09:13)
[2018-05-26] MEDS: Lidocaine PATCH 5%* 1 PATCH TRANSDERM SCH (09:17)
[2018-05-26] MEDS: Gabapentin CAP(*) 300 MG PO SCH ×2 (09:53→20:36)
--- NOTE | 2018-05-26 10:39 | PN ---
Progress Note Date of Service: 05/26/18 Note: MAURICE WEBER was visited. Nursing and therapy notes read and reviewed. No new concerns overnight. Ordered home nystatin cream and steroid ointment he uses behind ear/neck prn. No chest pain, shortness of breath or abdominal pain. Current Medications: Active Medications Generic Name Dose Route Start Last Admin Trade Name Freq PRN Reason Stop Dose Admin Acetaminophen 650 mg 05/24/18 14:26 05/24/18 19:14 Tylenol Tab* PO 650 mg Q4H PRN Administration FEVER > 101 Albuterol 1 puff 05/24/18 14:39 05/25/18 07:49 Ventolin Hfa Inhaler* INH 1 puff Q4H PRN Administration SOB/WHEEZING Albuterol/Ipratropium 1 puff 05/24/18 19:00 05/26/18 08:54 Combivent Respimat(Nf) INH 1 puff RT.BID [facility] Administration Protocol Alprazolam 0.5 mg 05/24/18 14:41 Xanax Tab* PO BID PRN ANXIETY Amlodipine Besylate 5 mg 05/25/18 10:00 05/26/18 09:07 Norvasc Tab* PO 5 mg DAILY [facility] Administration Aspirin 81 mg 05/25/18 09:00 05/26/18 09:07 Aspirin 81 Mg Chew Tab* PO 81 mg DAILY [facility] Administration Atorvastatin Calcium 80 mg 05/24/18 17:00 05/25/18 17:38 Lipitor* PO 80 mg 1700 [facility] Administration Cholecalciferol 2,000 units 05/25/18 09:00 05/26/18 09:07 Vitamin D Tab* PO 2,000 units DAILY [facility] Administration Clopidogrel Bisulfate 75 mg 05/25/18 09:00 05/26/18 09:08 Plavix Tab* PO 75 mg DAILY [facility] Administration Dextrose 12.5 gm 05/24/18 14:51 D50w Syringe 50 Ml* IV PUSH .FOR FS < 60 - SS PRN FS < 60 Docusate Sodium 100 mg 05/24/18 14:26 Colace Cap* PO BID PRN CONSTIPATION Furosemide 40 mg 05/25/18 10:00 05/26/18 09:08 Lasix Tab* PO 40 mg DAILY [facility] Administration Gabapentin 300 mg 05/24/18 17:00 05/26/18 09:53 Neurontin Cap(*) PO 300 mg QID [facility] Administration Heparin Sodium (Porcine) 5,000 units 05/24/18 22:00 05/26/18 06:10 Heparin Vial(*) SUBCUT 5,000 units Q8HR [facility] Administration Insulin Glargine 70 units 05/26/18 09:00 05/26/18 09:13 Lantus(*) SUBCUT 70 units Q24H [facility] Administration Insulin Human Lispro 0 units 05/24/18 16:30 05/26/18 09:12 Humalog* SUBCUT 9 units [facility] Administration Protocol Insulin Human Lispro 0 units 05/25/18 09:30 05/26/18 09:13 Humalog* SUBCUT 12 units [facility] Administration Protocol Isosorbide Mononitrate 120 mg 05/25/18 09:00 05/26/18 09:09 Imdur Er Tab* PO 120 mg DAILY [facility] Administration Levothyroxine Sodium 50 mcg 05/25/18 06:00 05/26/18 06:10 Synthroid Tab* PO 50 mcg DAILY@0600 [facility] Administration Lidocaine 1 patch 05/25/18 09:00 05/26/18 09:17 Lidoderm 5% Patch* TRANSDERM 1 patch DAILY [facility] Administration Metoprolol Succinate 50 mg 05/24/18 21:00 05/26/18 09:10 Toprol Xl Tab* PO 50 mg BID [facility] Administration Mometasone Furoate 1 puff 05/25/18 09:00 05/26/18 08:54 Asmanex 220 Mcg Mdi * INH 1 puff DAILY [facility] Administration Protocol Multivitamins/Minerals 1 tab 05/25/18 09:00 05/26/18 09:10 Theragran/Minerals Tab* PO 1 tab DAILY [facility] Administration Nitroglycerin 0.4 mg 05/24/18 14:38 Nitroglycerin Tab 0.4 Mg* SL Q5M PRN ANGINA Nystatin 1 applic 05/24/18 14:39 Nystatin Top Powder* TOPICAL TID PRN RASH Nystatin 1 applic 05/26/18 08:49 Nystatin Cream* TOPICAL BID PRN itching rash Ondansetron HCl 4 mg 05/24/18 14:42 Zofran Odt Tab* SL Q6H PRN NAUSEA/VOMITING Oxycodone HCl 10 mg 05/24/18 14:33 Roxycodone Tab* PO Q6H PRN low back pain Pantoprazole Sodium 80 mg 05/24/18 21:00 05/26/18 09:10 Protonix Tab (Nf) PO 80 mg BID [facility] Administration Pharmacy Profile Note 1 note 05/24/18 21:00 05/25/18 21:38 Lidocaine Patch Remove* N/A 1 note 2100 [facility] Administration Senna 2 tab 05/24/18 14:26 Senokot Tab* PO BEDTIME PRN CONSTIPATION Tramadol HCl 50 mg 05/24/18 14:32 Ultram* PO Q6H PRN PAIN Triamcinolone Acetonide 1 applic 05/26/18 08:50 Triamcinolone 0.5% Oint * TOPICAL BID PRN itching rash Protocol Vital Signs: Vital Signs Temp Pulse Resp BP Pulse Ox 98.9 F 77 18 163/61 97 05/26/18 06:09 05/26/18 08:55 05/26/18 09:53 05/26/18 06:09 05/26/18 08:55 Lab Results: Laboratory Results - last 24 hr 05/25/18 05/25/18 05/25/18 11:46 16:45 20:32 POC Glucose (mg/dL) 270 H 251 H 128 H Exam: GEN: no acute distress. alert and appropriate. LUNGS: clear to auscultation bilaterally. CV: regular rate and rhythm. ABD: + bowel sounds. soft, non-tender, non-distended. EXT: no edema. No increased tone. NEURO: CN II-XII intact. Decreased sensation in RUE/RLE compared to left. Motor 4+/5 RUE/RLE. 5/5 LUE/LLE. Assessment/Plan: 67yo man with left thalamic stroke and right hemiparesis. #Left thalamic stroke - Plavix and aspirin for 30days then change to plavix monotherapy. Continue lipitor. PT/OT/Speech #Hypertension - Continue metoprolol/imdur/lasix/amlodipine. #CAD - has NTG sl prn and used to angina with mowing lawn. Had 1 episode on acute service. Heart healthy diet and meds as above. #CKD - f/u with Dr. Craven. Dr. Cisneros in her discharge summary wanted his gabapentin dose reduced to 600mg daily due to his poor renal function. I d/w patient. He originally was put on it for postherpetic neuralgia about 3yrs ago and continued for neuropathy. Will reduce dose to 300mg bid and see if ok. #Diabetes mellitus - increased lantus to 70u qday on 05/25. On ssI lispro for carb counting and sliding scale. Was on 70/30 at home with each meal at home, but this may now change. May be a good candidate for f/u with art educator. He did not eat well at home and diabetes was not well controlled. #DVT ppx - sc heparin #Advanced directives - Full code. is hcp. #Estimated LOS - anticipate d/c around 06/04. 05/26/18 10:32
[2018-05-26] MEDS: Atorvastatin* 80 MG TAB PO SCH (18:12)
[2018-05-26] MEDS: Lidocaine Patch REMOVE* 1 NOTE MISC SCH (20:40)
[2018-05-26] MEDS: Nystatin CREAM* 15 GM TUBE TOPICAL PRN (21:05)
[2018-05-27] MEDS: Levothyroxine TAB* 50 MCG TAB PO SCH (06:13)
[2018-05-27] MEDS: Heparin VIAL(*) 5000 UNITS/ML VIAL (FIVE THOUSAND) SUBCUT SCH ×3 (06:13→20:54)
[2018-05-27] MEDS: PTO:Albuterol/Ipratropium RESP(NF) MDI (Combivent Respimat) INH SCH ×2 (07:44→20:29)
[2018-05-27] MEDS: Mometasone 220 MCG MDI INH SCH (07:44)
[2018-05-27] MEDS: Insulin LISPRO* 1 UNITS UNIT SUBCUT SCH ×6 (08:57→18:08)
[2018-05-27] MEDS: Aspirin 81 mg CHEW TAB* 81 MG TAB.CHEW PO SCH (09:00)
[2018-05-27] MEDS: Cholecalciferol TAB* 1000 UNITS PO SCH (09:00)
[2018-05-27] MEDS: Clopidogrel TAB* 75 MG PO SCH (09:00)
[2018-05-27] MEDS: amLODIPine TAB* 5 MG PO SCH (09:00)
[2018-05-27] MEDS: Insulin GLARGINE(*) 1 UNITS UNIT SUBCUT SCH (09:01)
[2018-05-27] MEDS: Gabapentin CAP(*) 300 MG PO SCH ×2 (09:01→21:00)
[2018-05-27] MEDS: Furosemide TAB* 40 MG PO SCH (09:01)
[2018-05-27] MEDS: CMCS: Pantoprazole TAB (NF) 40 MG TAB PO SCH ×2 (09:02→20:53)
[2018-05-27] MEDS: Multivitamins/Minerals TAB PO SCH (09:02)
[2018-05-27] MEDS: Metoprolol Succinate XL TAB* 50 MG PO SCH ×2 (09:02→20:53)
[2018-05-27] MEDS: Lidocaine PATCH 5%* 1 PATCH TRANSDERM SCH (09:02)
[2018-05-27] MEDS: Isosorbide Mononitrate ER TAB* 60 MG PO SCH (09:02)
[2018-05-27] MEDS: Nystatin CREAM* 15 GM TUBE TOPICAL PRN (16:56)
[2018-05-27] MEDS: Atorvastatin* 80 MG TAB PO SCH (18:09)
--- NOTE | 2018-05-27 18:39 | PN ---
Progress Note Date of Service: 05/27/18 Note: MAURICE WEBER was visited. Therapy notes read and reviewed. Discussed some lifestyle changes with Malick and his family. Current Medications: Active Medications Generic Name Dose Route Start Last Admin Trade Name Freq PRN Reason Stop Dose Admin Acetaminophen 650 mg 05/24/18 14:26 05/24/18 19:14 Tylenol Tab* PO 650 mg Q4H PRN Administration FEVER > 101 Albuterol 1 puff 05/24/18 14:39 05/25/18 07:49 Ventolin Hfa Inhaler* INH 1 puff Q4H PRN Administration SOB/WHEEZING Albuterol/Ipratropium 1 puff 05/24/18 19:00 05/27/18 07:44 Combivent Respimat(Nf) INH 1 puff RT.BID [facility] Administration Protocol Alprazolam 0.5 mg 05/24/18 14:41 Xanax Tab* PO BID PRN ANXIETY Amlodipine Besylate 5 mg 05/25/18 10:00 05/27/18 09:00 Norvasc Tab* PO 5 mg DAILY [facility] Administration Aspirin 81 mg 05/25/18 09:00 05/27/18 09:00 Aspirin 81 Mg Chew Tab* PO 81 mg DAILY [facility] Administration Atorvastatin Calcium 80 mg 05/24/18 17:00 05/27/18 18:09 Lipitor* PO 80 mg 1700 [facility] Administration Cholecalciferol 2,000 units 05/25/18 09:00 05/27/18 09:00 Vitamin D Tab* PO 2,000 units DAILY [facility] Administration Clopidogrel Bisulfate 75 mg 05/25/18 09:00 05/27/18 09:00 Plavix Tab* PO 75 mg DAILY [facility] Administration Dextrose 12.5 gm 05/24/18 14:51 D50w Syringe 50 Ml* IV PUSH .FOR FS < 60 - SS PRN FS < 60 Docusate Sodium 100 mg 05/24/18 14:26 Colace Cap* PO BID PRN CONSTIPATION Furosemide 40 mg 05/25/18 10:00 05/27/18 09:01 Lasix Tab* PO 40 mg DAILY [facility] Administration Gabapentin 300 mg 05/26/18 21:00 05/27/18 09:01 Neurontin Cap(*) PO 300 mg 0921 [facility] Administration Heparin Sodium (Porcine) 5,000 units 05/24/18 22:00 05/27/18 13:25 Heparin Vial(*) SUBCUT 5,000 units Q8HR [facility] Administration Insulin Glargine 70 units 05/26/18 09:00 05/27/18 09:01 Lantus(*) SUBCUT 70 units Q24H [facility] Administration Insulin Human Lispro 0 units 05/24/18 16:30 05/27/18 18:07 Humalog* SUBCUT 7 units AC [facility] Administration Protocol Insulin Human Lispro 0 units 05/25/18 09:30 05/27/18 18:08 Humalog* SUBCUT 3 units AC [facility] Administration Protocol Isosorbide Mononitrate 120 mg 05/25/18 09:00 05/27/18 09:02 Imdur Er Tab* PO 120 mg DAILY [facility] Administration Levothyroxine Sodium 50 mcg 05/25/18 06:00 05/27/18 06:13 Synthroid Tab* PO 50 mcg DAILY@0600 [facility] Administration Lidocaine 1 patch 05/25/18 09:00 05/27/18 09:02 Lidoderm 5% Patch* TRANSDERM 1 patch DAILY [facility] Administration Metoprolol Succinate 50 mg 05/24/18 21:00 05/27/18 09:02 Toprol Xl Tab* PO 50 mg BID [facility] Administration Mometasone Furoate 1 puff 05/25/18 09:00 05/27/18 07:44 Asmanex 220 Mcg Mdi * INH 1 puff DAILY [facility] Administration Protocol Multivitamins/Minerals 1 tab 05/25/18 09:00 05/27/18 09:02 Theragran/Minerals Tab* PO 1 tab DAILY [facility] Administration Nitroglycerin 0.4 mg 05/24/18 14:38 Nitroglycerin Tab 0.4 Mg* SL Q5M PRN ANGINA Nystatin 1 applic 05/24/18 14:39 Nystatin Top Powder* TOPICAL TID PRN RASH Nystatin 1 applic 05/26/18 08:49 05/27/18 16:56 Nystatin Cream* TOPICAL 1 applic BID PRN Administration itching rash Ondansetron HCl 4 mg 05/24/18 14:42 Zofran Odt Tab* SL Q6H PRN NAUSEA/VOMITING Oxycodone HCl 10 mg 05/24/18 14:33 Roxycodone Tab* PO Q6H PRN low back pain Pantoprazole Sodium 80 mg 05/24/18 21:00 08/06/18 09:02 Protonix Tab (Nf) PO 80 mg BID [facility] Administration Pharmacy Profile Note 1 note 05/24/18 21:00 05/26/18 20:40 Lidocaine Patch Remove* N/A 1 note 2100 [facility] Administration Senna 2 tab 05/24/18 14:26 Senokot Tab* PO BEDTIME PRN CONSTIPATION Tramadol HCl 50 mg 05/24/18 14:32 Ultram* PO Q6H PRN PAIN Triamcinolone Acetonide 1 applic 05/26/18 08:50 Triamcinolone 0.5% Oint * TOPICAL BID PRN itching rash Protocol Vital Signs: Vital Signs Temp Pulse Resp BP Pulse Ox 98.3 F 71 18 143/67 96 05/27/18 16:16 05/27/18 16:16 05/27/18 16:16 05/27/18 16:16 05/27/18 16:16 Lab Results: Laboratory Results - last 24 hr 05/26/18 05/26/18 05/26/18 07:12 11:55 16:43 POC Glucose (mg/dL) 171 H 268 H 233 H 05/26/18 21:07 POC Glucose (mg/dL) 196 H Exam: GENERAL: no acute distress. alert and appropriate. LUNGS: clear to auscultation bilaterally. HEART: regular rate and rhythm. ABDOMEN: + bowel sounds. soft, non-tender, non-distended. EXTREMITIES: no edema. No increased tone. NEUROLOGIC: CN II-XII intact. Decreased sensation in RUE/RLE compared to left. Motor 4+/5 RUE/RLE. 5/5 LUE/LLE. Assessment/Plan: 1. Left thalamic CVA: Plavix/ASA for 30 days then change to plavix monotherapy. Continue lipitor. PT/OT/Speech 2. Hypertension: Continue metoprolol/imdur/lasix/amlodipine. 3. CAD: has NTG sl prn and used to angina with mowing lawn. Had 1 episode on acute service. Heart healthy diet and meds as above. 4. CKD: f/u with Dr. Craven. Dr. Cisneros wanted his gabapentin dose reduced to 600mg daily due to his renal function. Now on 300mg bid. 5. Diabetes mellitus: increased lantus to 70u qday on 05/25. On ssI lispro for carb counting and sliding scale. HbA1C 8.7 on April 23 6. DVT prophylaxis: sc heparin 7. Advanced directives - Full code. is hcp. 8. Estimated LOS - anticipate d/c around 06/04. 05/27/18 18:39 05/27/18 18:44
[2018-05-27] MEDS: Acetaminophen TAB* 325 MG PO PRN (20:53)
[2018-05-27] MEDS: Lidocaine Patch REMOVE* 1 NOTE MISC SCH (21:04)
[2018-05-28] MEDS: Levothyroxine TAB* 50 MCG TAB PO SCH (05:32)
[2018-05-28] MEDS: Heparin VIAL(*) 5000 UNITS/ML VIAL (FIVE THOUSAND) SUBCUT SCH ×3 (05:32→22:14)
[2018-05-28] MEDS: Mometasone 220 MCG MDI INH SCH (08:38)
[2018-05-28] MEDS: PTO:Albuterol/Ipratropium RESP(NF) MDI (Combivent Respimat) INH SCH ×2 (08:38→20:50)
[2018-05-28] MEDS: Lidocaine PATCH 5%* 1 PATCH TRANSDERM SCH (09:02)
[2018-05-28] MEDS: Insulin LISPRO* 1 UNITS UNIT SUBCUT SCH ×6 (09:05→18:06)
[2018-05-28] MEDS: Insulin GLARGINE(*) 1 UNITS UNIT SUBCUT SCH (09:07)
[2018-05-28] MEDS: Clopidogrel TAB* 75 MG PO SCH (09:09)
[2018-05-28] MEDS: Aspirin 81 mg CHEW TAB* 81 MG TAB.CHEW PO SCH (09:09)
[2018-05-28] MEDS: CMCS: Pantoprazole TAB (NF) 40 MG TAB PO SCH ×2 (09:09→20:27)
[2018-05-28] MEDS: Isosorbide Mononitrate ER TAB* 60 MG PO SCH (09:09)
[2018-05-28] MEDS: Metoprolol Succinate XL TAB* 50 MG PO SCH ×2 (09:09→20:27)
[2018-05-28] MEDS: Furosemide TAB* 40 MG PO SCH (09:09)
[2018-05-28] MEDS: Multivitamins/Minerals TAB PO SCH (09:09)
[2018-05-28] MEDS: amLODIPine TAB* 5 MG PO SCH (09:09)
[2018-05-28] MEDS: Cholecalciferol TAB* 1000 UNITS PO SCH (09:09)
[2018-05-28] MEDS: Gabapentin CAP(*) 300 MG PO SCH ×2 (09:10→20:29)
--- NOTE | 2018-05-28 11:06 | PN ---
Progress Note - Progress Note Date of Service: 05/28/18 SOAP: Subjective: []Doing better. More use of arm and leg over weekend. In PT and tolerating. No other complaints. Acetaminophen (Tylenol Tab*) 650 mg PO Q4H PRN PRN Reason: FEVER > 101 Last Admin: 05/27/18 20:53 Dose: 650 mg Albuterol (Ventolin Hfa Inhaler*) 1 puff INH Q4H PRN PRN Reason: SOB/WHEEZING Last Admin: 05/25/18 07:49 Dose: 1 puff Albuterol/Ipratropium (Combivent Respimat(Nf)) 1 puff INH RT.BID [facility]; Protocol Last Admin: 05/28/18 08:38 Dose: 1 puff Alprazolam (Xanax Tab*) 0.5 mg PO BID PRN PRN Reason: ANXIETY Amlodipine Besylate (Norvasc Tab*) 5 mg PO DAILY [facility] Last Admin: 05/28/18 09:09 Dose: 5 mg Aspirin (Aspirin 81 Mg Chew Tab*) 81 mg PO DAILY [facility] Last Admin: 05/28/18 09:09 Dose: 81 mg Atorvastatin Calcium (Lipitor*) 80 mg PO 1700 [facility] Last Admin: 05/27/18 18:09 Dose: 80 mg Cholecalciferol (Vitamin D Tab*) 2,000 units PO DAILY [facility] Last Admin: 05/28/18 09:09 Dose: 2,000 units Clopidogrel Bisulfate (Plavix Tab*) 75 mg PO DAILY [facility] Last Admin: 05/28/18 09:09 Dose: 75 mg Dextrose (D50w Syringe 50 Ml*) 12.5 gm IV PUSH .FOR FS < 60 - SS PRN PRN Reason: FS < 60 Docusate Sodium (Colace Cap*) 100 mg PO BID PRN PRN Reason: CONSTIPATION Furosemide (Lasix Tab*) 40 mg PO DAILY [facility] Last Admin: 05/28/18 09:09 Dose: 40 mg Gabapentin (Neurontin Cap(*)) 300 mg PO , [facility] Last Admin: 05/28/18 09:10 Dose: 300 mg Heparin Sodium (Porcine) (Heparin Vial(*)) 5,000 units SUBCUT Q8HR [facility] Last Admin: 05/28/18 05:32 Dose: 5,000 units Insulin Glargine (Lantus(*)) 70 units SUBCUT Q24H [facility] Last Admin: 05/28/18 09:07 Dose: 70 units Insulin Human Lispro (Humalog*) 0 units SUBCUT AC [facility]; Protocol Last Admin: 05/28/18 09:05 Dose: 7 units Insulin Human Lispro (Humalog*) 0 units SUBCUT AC [facility]; Protocol Last Admin: 05/28/18 09:07 Dose: 3 units Isosorbide Mononitrate (Imdur Er Tab*) 120 mg PO DAILY [facility] Last Admin: 05/28/18 09:09 Dose: 120 mg Levothyroxine Sodium (Synthroid Tab*) 50 mcg PO DAILY@0600 [facility] Last Admin: 05/28/18 05:32 Dose: 50 mcg Lidocaine (Lidoderm 5% Patch*) 1 patch TRANSDERM DAILY [facility] Last Admin: 05/28/18 09:02 Dose: 1 patch Metoprolol Succinate (Toprol Xl Tab*) 50 mg PO BID [facility] Last Admin: 05/28/18 09:09 Dose: 50 mg Mometasone Furoate (Asmanex 220 Mcg Mdi *) 1 puff INH DAILY [facility]; Protocol Last Admin: 05/28/18 08:38 Dose: 1 puff Multivitamins/Minerals (Theragran/Minerals Tab*) 1 tab PO DAILY [facility] Last Admin: 05/28/18 09:09 Dose: 1 tab Nitroglycerin (Nitroglycerin Tab 0.4 Mg*) 0.4 mg SL Q5M PRN PRN Reason: ANGINA Nystatin (Nystatin Top Powder*) 1 applic TOPICAL TID PRN PRN Reason: RASH Nystatin (Nystatin Cream*) 1 applic TOPICAL BID PRN PRN Reason: itching rash Last Admin: 05/27/18 16:56 Dose: 1 applic Ondansetron HCl (Zofran Odt Tab*) 4 mg SL Q6H PRN PRN Reason: NAUSEA/VOMITING Oxycodone HCl (Roxycodone Tab*) 10 mg PO Q6H PRN PRN Reason: low back pain Pantoprazole Sodium (Protonix Tab (Nf)) 80 mg PO BID [facility] Last Admin: 05/28/18 09:09 Dose: 80 mg Pharmacy Profile Note (Lidocaine Patch Remove*) 1 note N/A 2100 [facility] Last Admin: 05/27/18 21:04 Dose: 1 note Senna (Senokot Tab*) 2 tab PO BEDTIME PRN PRN Reason: CONSTIPATION Tramadol HCl (Ultram*) 50 mg PO Q6H PRN PRN Reason: PAIN Triamcinolone Acetonide (Triamcinolone 0.5% Oint *) 1 applic TOPICAL BID PRN; Protocol PRN Reason: itching rash Objective: [] Vital Signs Temp Pulse Resp BP Pulse Ox 97.8 F 64 18 144/79 100 05/28/18 05:41 05/28/18 05:41 05/28/18 09:10 05/28/18 05:41 05/28/18 05:41 HEENT - Pale, no oral lesions, no JVD CTA RRR S1S2 Obese NT ND Ext tr edema Neuro - talking and good history, right arm movement is fine, right leg 4/5 Labs: kappa 2.08, Lambda 4.37 Iga 107 Igm 27 IgG 1120 M-spice 0.8 24 urine pending. Assessment: []67 year old with long standing MM status post transplant with recurrent low grade disease but has not required additional therapy. Course complicated by CRI that has been progressive, CAD with exertional angina. 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 Plan: []1. In PMRU and appears to be improving. 2. Myeloma. Sociologically stable, follow up 24 hr urine. 3. Will follow up as out patient baring additional issues.
--- NOTE | 2018-05-28 12:42 | PMRUTEAM ---
PMRU: Team Meeting Current Status: Nursing: Current Status Skin Deviations [right Rash posterior ear, neck] Skin Deviation Description [ topical cream applied right posterior ear, neck] Bladder Current Status using urinal Bowel Current Status last bm 05/27 Nutrition Current Status appetite great. 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 met with patient on 05/27 for carb counting education Medication Current Status needs reinforcement Physical Therapy: Current Status Bed Mobility Assistance Not Tested Transfer Moblility Assistance Supervision Transfer/Bed Mobility Rolling Walker Recommended Devices Ambulation Assistance Supervision Ambulation Assistive Devices Rolling Walker Number of Feet Patient 150' Ambulated Stairs Assistance Supervision Stairs Recommended Devices Two Rails Number of Stairs 5 Manual Wheelchair Control/ Bilateral UE's Technique Wheelchair Propulsion Ability Standby Assistance Wheelchair Distance (ft) 30' Occupational Therapy: Current Status Upper Body Dressing Ind with Adaptive Equip Lower Body Dressing Supervision Lower Body Dressing Progress min A to thread TIFFANIE depends. Uses sock aid and materials management clerk. Bathing Contact Guard Assist Bathing Progress S for all steps but standing to wash manda area - CGA Toileting Supervision Toilet Transfer Supervision Shower Transfer Contact Guard Assist Eating Independent Rec Therapy: Current Status Summary of Assessment and Pt. was open to conversation - pt. 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 Pt. identified with numerous interests and regularly involvement in them. Pt. identifies with health problems that have made it difficult for him to engage in some of his hobbies. Treatment Goals Pt. will engage in leisure activities while on the unit. Treatment Plan Provide RT services and encourage involvement. Social Work: Current Status Discharge Plan return home with home care svs and family support Potential for Family Training pt's family are supportive and involved Anticipated Discharge Home Destination Discharge With home care svs and family support Nutrition: Current Status Monitoring Verbal consult received to review consistent carb diet with pt. Visited pt this afternoon and reinforced consistent carb diet and carb recommendations (4-5 servings per meal, 1-2 servings snacks). Answered pt's questions about protein items (i.e sausage or fry at B), and will allow LS gravy at L & D as needed as pt c/o meats being dry. Answered pt's questions about desserts (lyudmila peyton food cake) and how to balance carb content of meal if he orders a sugary dessert . Will continue to follow for any further ed needs . Otherwise doing well - eating adequately; last BM today; skin intact. Goals: Physical Therapy: Updated Goals Transfer/Bed Mobility Rolling Walker Recommended Devices Occupational Therapy: Initial Goals Goals to be Completed in (Days 7-10 ) Upper Body Bathing Routine Independent Lower Body Bathing Routine Modified Independent with Upper Body Dressing Routine Independent Lower Body Dressing Routine Modified Independent with Toilet Hygeine and Clothing Modified Independent with Management Routine Toilet Transfer Routine Modified Independent with Step-In Shower Transfer Modified Independent with Routine Functional Transfers for ADL Modified Independent with Grooming Routine Independent Feeding Routine Independent Light Housekeeping Tasks Modified Independent with Nursing: Goals Bladder Goal independent Bowel Goal independent Nutrition Goal 100% of all meals Medication Goal independent Nutrition: Goals Intervention Goals 1. Adequate PO intake to maintain lean body mass and hydration w/o promoting undesired weight gain 2. Adequate glycemic control per inpatient parameters (goal < 180) 3. Questions regarding diet in the setting of DM will be addressed prior to dc 4. Intake will promote skin integrity w/o pressure related breakdown 5. Maintain regularity of BM w/o constipation or diarrhea Speech: Goals Speech Goal 1 Motor-speech Goal 1 Comments Motor-speech Goals: Long-Term Goal: Pt speak with 95-100% intelligibility I'ly Short-Term Goal 1: Pt will use compensatory articulation strategies to increase speech to intelligibility to 95% in spontaneous conversational speech, given minimal cueing. Short-Term Goal 2: Pt will use compensatory articulation strategies to increase speech to intelligibility to 95% in structured speech activities, given minimal cueing. Speech Goal 2 Problem Solving Speech Goal 2 Comments Problem Solving Goals: Long-Term Goal: Pt will use compensatory strategies to solve moderately complex routine problems, with 100% accuracy, Independently, for ADLs such as shopping, time and money management. Short-Term Goal: Pt will use compensatory strategies to solve moderately complex routine problems, with 80% accuracy, given Moderate skilled instruction and cueing. Social Work: Goals Discharge Plan return home with home care svs and family support Potential for Family Training pt's family are supportive and involved Anticipated Discharge Home Destination Discharge With home care svs and family support Care Plan: Care Plan Communication-Improve/Maintain Start: 05/25/18 15:22 Freq: DAILY Status: Active Target: Protocol: Activity Type Activity Date Activity User E-Sign Co-Sign Detail Recorded Client Recorded Date Recorded By Document 05/28/18 00:00 [id number] [id number] 05/28/18 00:04 [id number] 05/28/18 00:00 PMRU Outcome: Communication/Cognitive Status Outcome/Goals Makes Needs Known Effectively Progression Toward Outcomes/Goals Progressing DVT Prophylaxis- Improve/Maintain Start: 05/25/18 17:04 Freq: QSHIFT Status: Active Target: Protocol: Activity Type Activity Date Activity User E-Sign Co-Sign Detail Recorded Client Recorded Date Recorded By Document 05/28/18 10:12 [id number] [id number] 05/28/18 10:13 [id number] 05/28/18 10:12 PMRU Outcome: DVT Prophylaxis Outcome/Goals Remains Free of DVT Complies with DVT Prophylaxis /Treatment TEDS Stockings on Every AM, Off at HS Progression Toward Outcome/Goals Progressing Discharge Planning - Improve/Maintain Start: 05/25/18 17:04 Freq: DAILY Status: Active Target: Protocol: Activity Type Activity Date Activity User E-Sign Co-Sign Detail Recorded Client Recorded Date Recorded By Document 05/28/18 00:00 [id number] 05/28/18 00:05 [id number] 05/28/18 00:00 PMRU Outcome: Discharge Planning Update Patient Family No Outcome/Goals Demonstrates Understanding of Discharge Plan Progression Toward Outcome/Goals Progressing Metabolic Status- Improve/Maintain Start: 05/25/18 17:04 Freq: QSHIFT Status: Active Target: Protocol: Activity Type Activity Date Activity User E-Sign Co-Sign Detail Recorded Client Recorded Date Recorded By Document 05/28/18 10:12 [id number] 05/28/18 10:13 [id number] 05/28/18 10:12 PMRU Outcome: Metabolic Status Have Fingersticks Been Ordered Yes Fingerstick Order Frequency AC & HS Outcome/Goals Maintain/ Improve Metabolic Status Demonstrate Knowledge of Prevention/ Treatment of Metabolic Imbalances Progression Toward Outcome/Goals Progressing Mobility- Improve/Maintain Start: 05/25/18 14:19 Freq: DAILY Status: Active Target: Protocol: Activity Type Activity Date Activity User E-Sign Co-Sign Detail Recorded Client Recorded Date Recorded By Document 05/25/18 14:19 [id number] [id number] 05/25/18 14:20 [id number] 05/25/18 14:19 PMRU Outcome: Mobility Physical Therapy Evaluation and Yes Treatment Activity OOB with Assistance Yes Device Yes: RW Assistance Yes: CGA Patient to be seen 5x/wk for 60-120 min/ Therex day for: Mobility Training Gait Training W/C Mobility Balance Outcome/Goals Maintain/ Achieve Baseline Mobility Status Improve Mobility Status Demonstrates Proper Use of Assistive Devices Free from Complications of Immobility Bed Mobility Yes: IND Transfers Yes: MOD I Gait x ft Yes: MOD I 150FT Up/Down Stairs Yes: MOD I 12 STEPS With HEP Yes Safety- Improve/Maintain Start: 05/25/18 17:04 Freq: QSHIFT Status: Active Target: Protocol: Activity Type Activity Date Activity User E-Sign Co-Sign Detail Recorded Client Recorded Date Recorded By Document 05/28/18 10:12 [id number] 05/28/18 10:13 [id number] 05/28/18 10:12 PMRU Outcome: Safety Outcome/Goals Remain Free of Injury or Harm Cooperates with Safety Measures for Least Restrictive Environment Prevent Falls/ Injury Progression Toward Outcome/Goals Progressing Outcome/Goals Met Comment PA in place Medicine Note: Length of Stay: 3 days Anticipated Discharge Destination: Home Tentative Discharge Date: 05/31/18 Discharged to: Home
[2018-05-28] MEDS: Acetaminophen TAB* 325 MG PO PRN ×2 (14:28→22:15)
[2018-05-28] MEDS: Atorvastatin* 80 MG TAB PO SCH (17:08)
--- NOTE | 2018-05-28 17:08 | PN ---
Progress Note Date of Service: 05/28/18 Note: MAURICE WEBER was visited. Therapy notes read and reviewed. Malick was discussed in interdisciplinary team rounds. He is doing fairly well with his function and may go home at end of week. Blood sugars a little high. May need additional agent (Januvia?) Current Medications: Active Medications Generic Name Dose Route Start Last Admin Trade Name Freq PRN Reason Stop Dose Admin Acetaminophen 650 mg 05/24/18 14:26 05/28/18 14:28 Tylenol Tab* PO 650 mg Q4H PRN Administration FEVER > 101 Albuterol 1 puff 05/24/18 14:39 05/25/18 07:49 Ventolin Hfa Inhaler* INH 1 puff Q4H PRN Administration SOB/WHEEZING Albuterol/Ipratropium 1 puff 05/24/18 19:00 05/28/18 08:38 Combivent Respimat(Nf) INH 1 puff RT.BID YOVANA Administration Protocol Alprazolam 0.5 mg 05/24/18 14:41 Xanax Tab* PO BID PRN ANXIETY Amlodipine Besylate 5 mg 05/25/18 10:00 05/28/18 09:09 Norvasc Tab* PO 5 mg DAILY YOVANA Administration Aspirin 81 mg 05/25/18 09:00 05/28/18 09:09 Aspirin 81 Mg Chew Tab* PO 81 mg DAILY YOVANA Administration Atorvastatin Calcium 80 mg 05/24/18 17:00 05/27/18 18:09 Lipitor* PO 80 mg 1700 YOVANA Administration Cholecalciferol 2,000 units 05/25/18 09:00 05/28/18 09:09 Vitamin D Tab* PO 2,000 units DAILY YOVANA Administration Clopidogrel Bisulfate 75 mg 05/25/18 09:00 05/28/18 09:09 Plavix Tab* PO 75 mg DAILY YOVANA Administration Dextrose 12.5 gm 05/24/18 14:51 D50w Syringe 50 Ml* IV PUSH .FOR FS < 60 - SS PRN FS < 60 Docusate Sodium 100 mg 05/24/18 14:26 Colace Cap* PO BID PRN CONSTIPATION Furosemide 40 mg 05/25/18 10:00 05/28/18 09:09 Lasix Tab* PO 40 mg DAILY YOVANA Administration Gabapentin 300 mg 05/26/18 21:00 05/28/18 09:10 Neurontin Cap(*) PO 300 mg YOVANA Administration Heparin Sodium (Porcine) 5,000 units 05/24/18 22:00 05/28/18 14:22 Heparin Vial(*) SUBCUT 5,000 units Q8HR YOVANA Administration Insulin Glargine 70 units 05/26/18 09:00 05/28/18 09:07 Lantus(*) SUBCUT 70 units Q24H YOVANA Administration Insulin Human Lispro 0 units 05/24/18 16:30 05/28/18 14:24 Humalog* SUBCUT 9 units AC YOVANA Administration Protocol Insulin Human Lispro 0 units 05/25/18 09:30 05/28/18 14:25 Humalog* SUBCUT 6 units AC [facility] Administration Protocol Isosorbide Mononitrate 120 mg 05/25/18 09:00 05/28/18 09:09 Imdur Er Tab* PO 120 mg DAILY YOVANA Administration Levothyroxine Sodium 50 mcg 05/25/18 06:00 05/28/18 05:32 Synthroid Tab* PO 50 mcg DAILY@0600 YOVANA Administration Lidocaine 1 patch 05/25/18 09:00 05/28/18 09:02 Lidoderm 5% Patch* TRANSDERM 1 patch DAILY YOVANA Administration Metoprolol Succinate 50 mg 05/24/18 21:00 05/28/18 09:09 Toprol Xl Tab* PO 50 mg BID YOVANA Administration Mometasone Furoate 1 puff 05/25/18 09:00 05/28/18 08:38 Asmanex 220 Mcg Mdi * INH 1 puff DAILY YOVANA Administration Protocol Multivitamins/Minerals 1 tab 05/25/18 09:00 05/28/18 09:09 Theragran/Minerals Tab* PO 1 tab DAILY YOVANA Administration Nitroglycerin 0.4 mg 05/24/18 14:38 Nitroglycerin Tab 0.4 Mg* SL Q5M PRN ANGINA Nystatin 1 applic 05/24/18 14:39 Nystatin Top Powder* TOPICAL TID PRN RASH Nystatin 1 applic 05/26/18 08:49 05/27/18 16:56 Nystatin Cream* TOPICAL 1 applic BID PRN Administration itching rash Ondansetron HCl 4 mg 05/24/18 14:42 Zofran Odt Tab* SL Q6H PRN NAUSEA/VOMITING Oxycodone HCl 10 mg 05/24/18 14:33 Roxycodone Tab* PO Q6H PRN low back pain Pantoprazole Sodium 80 mg 05/24/18 21:00 05/28/18 09:09 Protonix Tab (Nf) PO 80 mg BID YOVANA Administration Pharmacy Profile Note 1 note 05/24/18 21:00 05/27/18 21:04 Lidocaine Patch Remove* N/A 1 note 2100 YOVANA Administration Senna 2 tab 05/24/18 14:26 Senokot Tab* PO BEDTIME PRN CONSTIPATION Tramadol HCl 50 mg 05/24/18 14:32 Ultram* PO Q6H PRN PAIN Triamcinolone Acetonide 1 applic 05/26/18 08:50 Triamcinolone 0.5% Oint * TOPICAL BID PRN itching rash Protocol Vital Signs: Vital Signs Temp Pulse Resp BP Pulse Ox 98.3 F 67 18 146/67 95 05/28/18 15:11 05/28/18 15:11 05/28/18 15:11 05/28/18 15:11 05/28/18 15:11 Lab Results: Laboratory Results - last 24 hr 05/24/18 05/27/18 05/27/18 20:00 07:48 11:47 POC Glucose (mg/dL) 176 H 250 H PEP Impression See comment Ur Random Albumin % 74 U Random Total Protein 196 Ur Albumin/Globulin 2.82 U Random q-6-Ghejcepa % 4 U Random i-9-Mhyrtujt % 5 U Random b-Globulin % 7 U Random Gamma Glob % 10 05/27/18 05/27/18 05/28/18 16:49 20:45 07:49 POC Glucose (mg/dL) 176 H 218 H 174 H PEP Impression Ur Random Albumin % U Random Total Protein Ur Albumin/Globulin U Random o-2-Tmzsifdr % U Random m-4-Eivrwiyz % U Random b-Globulin % U Random Gamma Glob % 05/28/18 12:13 POC Glucose (mg/dL) 232 H PEP Impression Ur Random Albumin % U Random Total Protein Ur Albumin/Globulin U Random w-5-Snekonbx % U Random q-3-Akhzwoca % U Random b-Globulin % U Random Gamma Glob % Exam: GENERAL: no acute distress. alert and appropriate. LUNGS: clear to auscultation bilaterally. HEART: regular rate and rhythm. ABDOMEN: + bowel sounds. soft, non-tender, non-distended. EXTREMITIES: no edema. No increased tone. NEUROLOGIC: CN II-XII intact. Decreased sensation in RUE/RLE compared to left. Motor 4+/5 RUE/RLE. 5/5 LUE/LLE. Assessment/Plan: 1. Left thalamic CVA: Plavix/ASA for 30 days then change to plavix monotherapy. Continue lipitor. PT/OT/Speech 2. Hypertension: Continue metoprolol/imdur/lasix/amlodipine. 3. CAD: has NTG sl prn and used to angina with mowing lawn. Had 1 episode on acute service. Heart healthy diet and meds as above. 4. CKD: f/u with Dr. Craven. Dr. Cisneros wanted his gabapentin dose reduced due to his renal function. Now on 300mg bid. 5. Diabetes mellitus: increased lantus to 70u qday on 05/25. On ssI lispro for carb counting and sliding scale. HbA1C 8.7 on April 23. May need another agent 6. DVT prophylaxis: sc heparin 7. Advanced directives - Full code. is hcp. 8. Estimated LOS - anticipate d/c around 05/31. 05/28/18 17:08
[2018-05-28] MEDS: Nystatin CREAM* 15 GM TUBE TOPICAL PRN (20:28)
[2018-05-28] MEDS: Lidocaine Patch REMOVE* 1 NOTE MISC SCH (20:59)
[2018-05-29] MEDS: Acetaminophen TAB* 325 MG PO PRN ×3 (03:53→16:07)
[2018-05-29] MEDS: Heparin VIAL(*) 5000 UNITS/ML VIAL (FIVE THOUSAND) SUBCUT SCH ×3 (05:38→21:03)
[2018-05-29] MEDS: Levothyroxine TAB* 50 MCG TAB PO SCH (05:40)
[2018-05-29] MEDS: Insulin LISPRO* 1 UNITS UNIT SUBCUT SCH ×6 (08:28→17:42)
[2018-05-29] MEDS: amLODIPine TAB* 5 MG PO SCH (08:29)
[2018-05-29] MEDS: Aspirin 81 mg CHEW TAB* 81 MG TAB.CHEW PO SCH (08:29)
[2018-05-29] MEDS: Cholecalciferol TAB* 1000 UNITS PO SCH (08:30)
[2018-05-29] MEDS: Clopidogrel TAB* 75 MG PO SCH (08:30)
[2018-05-29] MEDS: Lidocaine PATCH 5%* 1 PATCH TRANSDERM SCH (08:31)
[2018-05-29] MEDS: Furosemide TAB* 40 MG PO SCH (08:31)
[2018-05-29] MEDS: Isosorbide Mononitrate ER TAB* 60 MG PO SCH (08:31)
[2018-05-29] MEDS: Metoprolol Succinate XL TAB* 50 MG PO SCH ×2 (08:32→20:58)
[2018-05-29] MEDS: Multivitamins/Minerals TAB PO SCH (08:32)
[2018-05-29] MEDS: CMCS: Pantoprazole TAB (NF) 40 MG TAB PO SCH ×2 (08:33→20:58)
[2018-05-29] MEDS: Insulin GLARGINE(*) 1 UNITS UNIT SUBCUT SCH (08:35)
[2018-05-29] MEDS: Gabapentin CAP(*) 300 MG PO SCH ×2 (08:54→20:58)
[2018-05-29] MEDS: Mometasone 220 MCG MDI INH SCH (09:37)
[2018-05-29] MEDS: PTO:Albuterol/Ipratropium RESP(NF) MDI (Combivent Respimat) INH SCH ×2 (09:38→20:43)
[2018-05-29] MEDS: Atorvastatin* 80 MG TAB PO SCH (17:15)
--- NOTE | 2018-05-29 20:05 | PN ---
Progress Note Date of Service: 05/29/18 Note: MAURICE WEBER was visited. Therapy notes read and reviewed. His dietary choices are still not great and his carbs may have to be limited. He is ambulating better Current Medications: Active Medications Generic Name Dose Route Start Last Admin Trade Name Freq PRN Reason Stop Dose Admin Acetaminophen 650 mg 05/24/18 14:26 05/29/18 16:07 Tylenol Tab* PO 650 mg Q4H PRN Administration FEVER > 101 Albuterol 1 puff 05/24/18 14:39 05/25/18 07:49 Ventolin Hfa Inhaler* INH 1 puff Q4H PRN Administration SOB/WHEEZING Albuterol/Ipratropium 1 puff 05/24/18 19:00 05/29/18 09:38 Combivent Respimat(Nf) INH 1 puff RT.BID YOVANA Administration Protocol Alprazolam 0.5 mg 05/24/18 14:41 Xanax Tab* PO BID PRN ANXIETY Amlodipine Besylate 5 mg 05/25/18 10:00 05/29/18 08:29 Norvasc Tab* PO 5 mg DAILY YOVANA Administration Aspirin 81 mg 05/25/18 09:00 05/29/18 08:29 Aspirin 81 Mg Chew Tab* PO 81 mg DAILY YOVANA Administration Atorvastatin Calcium 80 mg 05/24/18 17:00 05/29/18 17:15 Lipitor* PO 80 mg 1700 YOVANA Administration Cholecalciferol 2,000 units 05/25/18 09:00 05/29/18 08:30 Vitamin D Tab* PO 2,000 units DAILY YOVANA Administration Clopidogrel Bisulfate 75 mg 05/25/18 09:00 05/29/18 08:30 Plavix Tab* PO 75 mg DAILY YOVANA Administration Dextrose 12.5 gm 05/24/18 14:51 D50w Syringe 50 Ml* IV PUSH .FOR FS < 60 - SS PRN FS < 60 Docusate Sodium 100 mg 05/24/18 14:26 Colace Cap* PO BID PRN CONSTIPATION Furosemide 40 mg 05/25/18 10:00 05/29/18 08:31 Lasix Tab* PO 40 mg DAILY YOVANA Administration Gabapentin 300 mg 05/26/18 21:00 05/29/18 08:54 Neurontin Cap(*) PO 300 mg YOVANA Administration Heparin Sodium (Porcine) 5,000 units 05/24/18 22:00 05/29/18 12:53 Heparin Vial(*) SUBCUT 5,000 units Q8HR YOVANA Administration Insulin Glargine 70 units 05/26/18 09:00 05/29/18 08:35 Lantus(*) SUBCUT 70 units Q24H YOVANA Administration Insulin Human Lispro 0 units 05/24/18 16:30 05/29/18 17:42 Humalog* SUBCUT 9 units AC [facility] Administration Protocol Insulin Human Lispro 0 units 05/25/18 09:30 05/29/18 17:42 Humalog* SUBCUT 6 units AC [facility] Administration Protocol Isosorbide Mononitrate 120 mg 05/25/18 09:00 05/29/18 08:31 Imdur Er Tab* PO 120 mg DAILY YOVANA Administration Levothyroxine Sodium 50 mcg 05/25/18 06:00 05/29/18 05:40 Synthroid Tab* PO 50 mcg DAILY@0600 [facility] Administration Lidocaine 1 patch 05/25/18 09:00 05/29/18 08:31 Lidoderm 5% Patch* TRANSDERM 1 patch DAILY YOVANA Administration Metoprolol Succinate 50 mg 05/24/18 21:00 05/29/18 08:32 Toprol Xl Tab* PO 50 mg BID YOVANA Administration Mometasone Furoate 1 puff 05/25/18 09:00 05/29/18 09:37 Asmanex 220 Mcg Mdi * INH 1 puff DAILY [facility] Administration Protocol Multivitamins/Minerals 1 tab 05/25/18 09:00 05/29/18 08:32 Theragran/Minerals Tab* PO 1 tab DAILY YOVANA Administration Nitroglycerin 0.4 mg 05/24/18 14:38 Nitroglycerin Tab 0.4 Mg* SL Q5M PRN ANGINA Nystatin 1 applic 05/24/18 14:39 Nystatin Top Powder* TOPICAL TID PRN RASH Nystatin 1 applic 05/26/18 08:49 05/28/18 20:28 Nystatin Cream* TOPICAL 1 applic BID PRN Administration itching rash Ondansetron HCl 4 mg 05/24/18 14:42 Zofran Odt Tab* SL Q6H PRN NAUSEA/VOMITING Oxycodone HCl 10 mg 05/24/18 14:33 Roxycodone Tab* PO Q6H PRN low back pain Pantoprazole Sodium 80 mg 05/24/18 21:00 05/29/18 08:33 Protonix Tab (Nf) PO 80 mg BID YOVANA Administration Pharmacy Profile Note 1 note 05/24/18 21:00 05/28/18 20:59 Lidocaine Patch Remove* N/A 1 note 2100 YOVANA Administration Senna 2 tab 05/24/18 14:26 Senokot Tab* PO BEDTIME PRN CONSTIPATION Tramadol HCl 50 mg 05/24/18 14:32 Ultram* PO Q6H PRN PAIN Triamcinolone Acetonide 1 applic 05/26/18 08:50 Triamcinolone 0.5% Oint * TOPICAL BID PRN itching rash Protocol Vital Signs: Vital Signs Temp Pulse Resp BP Pulse Ox 98.2 F 68 18 133/57 94 05/29/18 18:05 05/29/18 18:05 05/29/18 18:05 05/29/18 18:05 05/29/18 18:45 Lab Results: Laboratory Results - last 24 hr 05/28/18 05/29/18 05/29/18 20:10 07:42 11:48 POC Glucose (mg/dL) 157 H 192 H 306 H 05/29/18 16:40 POC Glucose (mg/dL) 206 H Exam: GENERAL: no acute distress. alert and appropriate. LUNGS: clear to auscultation bilaterally. HEART: regular rate and rhythm. ABDOMEN: + bowel sounds. soft, non-tender, non-distended. EXTREMITIES: no edema. No increased tone. NEUROLOGIC: CN II-XII intact. Decreased sensation in RUE/RLE compared to left. Motor 4+/5 RUE/RLE. 5/5 LUE/LLE. Assessment/Plan: 1. Left thalamic CVA: Plavix/ASA for 30 days then change to plavix monotherapy. Continue lipitor. PT/OT/Speech 2. Hypertension: Continue metoprolol/imdur/lasix/amlodipine. 3. CAD: has NTG sl prn. Heart healthy diet and Metoprolol/Imdur. 4. CKD: f/u with Dr. Craven. gabapentin dose reduced to 300mg bid. 5. Diabetes mellitus: increased lantus to 70u qday on 05/25. On ssI lispro for carb counting and sliding scale. HbA1C 8.7 on April 23. May need another agent 6. DVT prophylaxis: sc heparin 7. Advanced directives - Full code. is hcp. 8. Estimated LOS - anticipate d/c around 05/31. 05/29/18 20:06
[2018-05-29] MEDS: Lidocaine Patch REMOVE* 1 NOTE MISC SCH (21:02)
[2018-05-30] MEDS: Levothyroxine TAB* 50 MCG TAB PO SCH (06:01)
[2018-05-30] MEDS: Acetaminophen TAB* 325 MG PO PRN ×2 (06:02→16:20)
[2018-05-30] MEDS: Heparin VIAL(*) 5000 UNITS/ML VIAL (FIVE THOUSAND) SUBCUT SCH ×3 (06:04→21:42)
[2018-05-30] MEDS: PTO:Albuterol/Ipratropium RESP(NF) MDI (Combivent Respimat) INH SCH ×2 (07:48→20:35)
[2018-05-30] MEDS: Mometasone 220 MCG MDI INH SCH (07:48)
[2018-05-30] MEDS: amLODIPine TAB* 5 MG PO SCH (09:24)
[2018-05-30] MEDS: Aspirin 81 mg CHEW TAB* 81 MG TAB.CHEW PO SCH (09:24)
[2018-05-30] MEDS: Clopidogrel TAB* 75 MG PO SCH (09:25)
[2018-05-30] MEDS: Cholecalciferol TAB* 1000 UNITS PO SCH (09:25)
[2018-05-30] MEDS: Furosemide TAB* 40 MG PO SCH (09:26)
[2018-05-30] MEDS: Gabapentin CAP(*) 300 MG PO SCH ×2 (09:26→20:53)
[2018-05-30] MEDS: Isosorbide Mononitrate ER TAB* 60 MG PO SCH (09:27)
[2018-05-30] MEDS: Insulin GLARGINE(*) 1 UNITS UNIT SUBCUT SCH (09:27)
[2018-05-30] MEDS: Metoprolol Succinate XL TAB* 50 MG PO SCH ×2 (09:28→20:53)
[2018-05-30] MEDS: Lidocaine PATCH 5%* 1 PATCH TRANSDERM SCH (09:28)
[2018-05-30] MEDS: Multivitamins/Minerals TAB PO SCH (09:28)
[2018-05-30] MEDS: CMCS: Pantoprazole TAB (NF) 40 MG TAB PO SCH ×2 (09:29→20:53)
[2018-05-30] MEDS: Insulin LISPRO* 1 UNITS UNIT SUBCUT SCH ×6 (09:37→18:55)
--- NOTE | 2018-05-30 18:37 | PN ---
Progress Note Date of Service: 05/30/18 Note: MAURICE WEBER was visited. Therapy notes read and reviewed. He complains of a headache behind his left eye that comes and goes. Blood sugars slightly better today Current Medications: Active Medications Generic Name Dose Route Start Last Admin Trade Name Freq PRN Reason Stop Dose Admin Acetaminophen 650 mg 05/24/18 14:26 05/30/18 16:20 Tylenol Tab* PO 650 mg Q4H PRN Administration FEVER > 101 Albuterol 1 puff 05/24/18 14:39 05/25/18 07:49 Ventolin Hfa Inhaler* INH 1 puff Q4H PRN Administration SOB/WHEEZING Albuterol/Ipratropium 1 puff 05/24/18 19:00 05/30/18 07:48 Combivent Respimat(Nf) INH 1 puff RT.BID YOVANA Administration Protocol Alprazolam 0.5 mg 05/24/18 14:41 Xanax Tab* PO BID PRN ANXIETY Amlodipine Besylate 5 mg 05/25/18 10:00 05/30/18 09:24 Norvasc Tab* PO 5 mg DAILY YOVANA Administration Aspirin 81 mg 05/25/18 09:00 05/30/18 09:24 Aspirin 81 Mg Chew Tab* PO 81 mg DAILY YOVANA Administration Atorvastatin Calcium 80 mg 05/24/18 17:00 05/29/18 17:15 Lipitor* PO 80 mg 1700 YOVANA Administration Cholecalciferol 2,000 units 05/25/18 09:00 05/30/18 09:25 Vitamin D Tab* PO 2,000 units DAILY YOVANA Administration Clopidogrel Bisulfate 75 mg 05/25/18 09:00 05/30/18 09:25 Plavix Tab* PO 75 mg DAILY YOVANA Administration Dextrose 12.5 gm 05/24/18 14:51 D50w Syringe 50 Ml* IV PUSH .FOR FS < 60 - SS PRN FS < 60 Docusate Sodium 100 mg 05/24/18 14:26 Colace Cap* PO BID PRN CONSTIPATION Furosemide 40 mg 05/25/18 10:00 05/30/18 09:26 Lasix Tab* PO 40 mg DAILY YOVANA Administration Gabapentin 300 mg 05/26/18 21:00 05/30/18 09:26 Neurontin Cap(*) PO 300 mg YOVANA Administration Heparin Sodium (Porcine) 5,000 units 05/24/18 22:00 05/30/18 13:15 Heparin Vial(*) SUBCUT 5,000 units Q8HR YOVANA Administration Insulin Glargine 70 units 05/26/18 09:00 05/30/18 09:27 Lantus(*) SUBCUT 70 units Q24H YOVANA Administration Insulin Human Lispro 0 units 05/24/18 16:30 05/30/18 13:18 Humalog* SUBCUT 10 units AC [facility] Administration Protocol Insulin Human Lispro 0 units 05/25/18 09:30 05/30/18 13:26 Humalog* SUBCUT 9 units AC [facility] Administration Protocol Isosorbide Mononitrate 120 mg 05/25/18 09:00 05/30/18 09:27 Imdur Er Tab* PO 120 mg DAILY YOVANA Administration Levothyroxine Sodium 50 mcg 05/25/18 06:00 05/30/18 06:01 Synthroid Tab* PO 50 mcg DAILY@0600 YOVANA Administration Lidocaine 1 patch 05/25/18 09:00 05/30/18 09:28 Lidoderm 5% Patch* TRANSDERM 1 patch DAILY YOVANA Administration Metoprolol Succinate 50 mg 05/24/18 21:00 05/30/18 09:28 Toprol Xl Tab* PO 50 mg BID YOVANA Administration Mometasone Furoate 1 puff 05/25/18 09:00 05/30/18 07:48 Asmanex 220 Mcg Mdi * INH 1 puff DAILY [facility] Administration Protocol Multivitamins/Minerals 1 tab 05/25/18 09:00 05/30/18 09:28 Theragran/Minerals Tab* PO 1 tab DAILY YOVANA Administration Nitroglycerin 0.4 mg 05/24/18 14:38 Nitroglycerin Tab 0.4 Mg* SL Q5M PRN ANGINA Nystatin 1 applic 05/24/18 14:39 Nystatin Top Powder* TOPICAL TID PRN RASH Nystatin 1 applic 05/26/18 08:49 05/28/18 20:28 Nystatin Cream* TOPICAL 1 applic BID PRN Administration itching rash Ondansetron HCl 4 mg 05/24/18 14:42 Zofran Odt Tab* SL Q6H PRN NAUSEA/VOMITING Oxycodone HCl 10 mg 05/24/18 14:33 Roxycodone Tab* PO Q6H PRN low back pain Pantoprazole Sodium 80 mg 05/24/18 21:00 05/30/18 09:29 Protonix Tab (Nf) PO 80 mg BID YOVANA Administration Pharmacy Profile Note 1 note 05/24/18 21:00 05/29/18 21:02 Lidocaine Patch Remove* N/A 1 note 2100 YOVANA Administration Senna 2 tab 05/24/18 14:26 Senokot Tab* PO BEDTIME PRN CONSTIPATION Tramadol HCl 50 mg 05/24/18 14:32 Ultram* PO Q6H PRN PAIN Triamcinolone Acetonide 1 applic 05/26/18 08:50 Triamcinolone 0.5% Oint * TOPICAL BID PRN itching rash Protocol Vital Signs: Vital Signs Temp Pulse Resp BP Pulse Ox 98.2 F 66 18 145/63 93 05/30/18 15:46 05/30/18 15:46 05/30/18 15:46 05/30/18 15:46 05/30/18 15:46 Lab Results: Laboratory Results - last 24 hr 05/29/18 05/30/18 05/30/18 20:28 07:48 12:41 POC Glucose (mg/dL) 230 H 175 H 262 H 05/30/18 17:08 POC Glucose (mg/dL) 213 H Exam: GENERAL: no acute distress. alert and appropriate. HEENT: No tenderness over left eye LUNGS: clear to auscultation bilaterally. HEART: regular rate and rhythm. ABDOMEN: + bowel sounds. soft, non-tender, non-distended. EXTREMITIES: no edema. No increased tone. NEUROLOGIC: CN II-XII intact. Decreased sensation in RUE/RLE compared to left. Motor 4+/5 RUE/RLE. 5/5 LUE/LLE. Assessment/Plan: 1. Left thalamic CVA: Plavix/ASA for 30 days then change to plavix monotherapy. Continue lipitor. PT/OT/Speech 2. Hypertension: Continue metoprolol/imdur/lasix/amlodipine. 3. CAD: has NTG sl prn. Heart healthy diet and Metoprolol/Imdur. 4. CKD: f/u with Dr. Craven. gabapentin dose reduced to 300mg bid. 5. Diabetes mellitus: increased lantus to 70u qday on 05/25. On ssI lispro for carb counting and sliding scale. HbA1C 8.7 on April 23. May need another agent 6. DVT prophylaxis: Heparin S/Q 7. Advanced directives: Full code. is hcp. 8. Estimated LOS - anticipate d/c tomorrow. 9. Headache: Will check CT of head 05/30/18 18:39
[2018-05-30] MEDS: Atorvastatin* 80 MG TAB PO SCH (19:07)
--- NOTE | 2018-05-30 19:27 | RAD ---
Indication: History of LEFT thalamic CVA. Now with LEFT-sided headache. Comparison: May 21, [address] Technique: Noncontrast CT vertex of skull through foramen magnum. Report: 0.6 cm subacute lacunar infarct at the interface of the LEFT thalamus and posterior limb of the internal capsule corresponding with the focus of restricted diffusion on the May 21, 2018 MRI. Negative for mass effect. No additional intra or extra-axial lesions evident. Negative for intra or extra-axial hemorrhage. Decreased density in the periventricular and subcortical white matter while non-specific is most likely due to chronic microangiopathy. Unremarkable cerebral sulci, ventricles, and basal cisterns. Unremarkable partially visualized orbital contents. Unremarkable calvarium and skull base. Unchanged mild posterior scalp edema extending to the vertex. IMPRESSION: #. 0.6 cm subacute lacunar infarct at the interface of the LEFT thalamus and posterior limb of the internal capsule corresponding with the focus of restricted diffusion on the May 21, 2018 MRI. Negative for mass effect. #. Negative for intracranial hemorrhage. #. Stigmata of chronic small vessel ischemic disease.
[2018-05-30] MEDS: Lidocaine Patch REMOVE* 1 NOTE MISC SCH (20:59)
[2018-05-31] MEDS: Acetaminophen TAB* 325 MG PO PRN (01:06)
[2018-05-31] MEDS: Heparin VIAL(*) 5000 UNITS/ML VIAL (FIVE THOUSAND) SUBCUT SCH (05:30)
[2018-05-31] MEDS: Levothyroxine TAB* 50 MCG TAB PO SCH (05:30)
[2018-05-31 05:32] VITALS: BP 138/68
[2018-05-31] MEDS: amLODIPine TAB* 5 MG PO SCH (09:22)
[2018-05-31] MEDS: Cholecalciferol TAB* 1000 UNITS PO SCH (09:22)
[2018-05-31] MEDS: Gabapentin CAP(*) 300 MG PO SCH (09:23)
[2018-05-31] MEDS: Furosemide TAB* 40 MG PO SCH (09:23)
[2018-05-31] MEDS: Clopidogrel TAB* 75 MG PO SCH (09:23)
[2018-05-31] MEDS: Isosorbide Mononitrate ER TAB* 60 MG PO SCH (09:24)
[2018-05-31] MEDS: Metoprolol Succinate XL TAB* 50 MG PO SCH (09:24)
[2018-05-31] MEDS: Insulin GLARGINE(*) 1 UNITS UNIT SUBCUT SCH (09:24)
[2018-05-31] MEDS: Lidocaine PATCH 5%* 1 PATCH TRANSDERM SCH (09:24)
[2018-05-31] MEDS: Multivitamins/Minerals TAB PO SCH (09:25)
[2018-05-31] MEDS: Aspirin 81 mg CHEW TAB* 81 MG TAB.CHEW PO SCH (09:25)
[2018-05-31] MEDS: Insulin LISPRO* 1 UNITS UNIT SUBCUT SCH ×4 (09:25→12:36)
[2018-05-31] MEDS: CMCS: Pantoprazole TAB (NF) 40 MG TAB PO SCH (09:25)
[2018-05-31] MEDS: PTO:Albuterol/Ipratropium RESP(NF) MDI (Combivent Respimat) INH SCH (09:58)
[2018-05-31] MEDS: Mometasone 220 MCG MDI INH SCH (09:58)
--- NOTE | 2018-06-01 04:08 | DS ---
CC: Aditya Weston NP, [facility]* DISCHARGE SUMMARY: DATE OF ADMISSION: 05/24/18 DATE OF DISCHARGE: 05/31/18 DISCHARGE DIAGNOSES: 1. Left thalamic cerebrovascular accident. 2. Diabetes mellitus. 3. Multiple myeloma. 4. Chronic kidney disease. 5. Coronary artery disease. 6. Hypertension. HISTORY OF ILLNESS AND HOSPITAL COURSE: For complete history of the events leading up to his rehab stay, please see the history and physical dictated by Dr. Nupur Calderon on 05/24/18. While on the rehab unit, his blood sugars remained in fairly good control. Several attempts were made to try to teach the patient the concept of carb counting with insulin coverage. The patient could not understand the concept of carb counting. Instead, it was recommended that he go home on a consistent carbohydrate diet with Humalog insulin at a fixed dose with every meal. The patient's kidney disease was stable while on the rehab unit. The patient was seen by Dr. Loya several times during his rehab stay. The patient was otherwise medically stable. He was seen by both Physical and Occupational Therapy and made good gains with both disciplines. With physical therapy at the time of admission, the patient required minimal amount of assistance for bed mobility, contact guard for transfers, contact guard to ambulate. With occupational therapy, he was min assist for lower body dressing, setup for upper body dressing, min assist for bathing, contact guard for toileting. By the time of discharge, he was independent in all activities. The patient was discharged home on 05/31/18. DISCHARGE DIET: Consistent carbohydrate. DISCHARGE MEDICATIONS: 1. Lantus insulin 70 units subcutaneously once a day. 2. Humalog or lispro insulin 4 units subcutaneously with meals. 3. Albuterol HFA inhaler 1 puff every 4 hours as needed. 4. Combivent 1 puff twice a day. 5. Xanax 0.5 mg twice daily as needed. 6. Norvasc 5 mg daily. 7. Aspirin 81 mg daily. 8. Plavix 75 mg daily. 9. Lipitor 80 mg at 5 p.m. 10. Lasix 40 mg daily. 11. Gabapentin 300 mg at 9 a.m. and 9 p.m. 12. Imdur ER 120 mg daily. 13. Synthroid 50 mcg daily. 14. Toprol-XL 50 mg twice daily. 15. Asmanex 1 puff daily. 16. Nitroglycerin 0.4 mg sublingually every 5 minutes as needed for angina. 17. Oxycodone 10 mg every 6 hours as needed. 18. Omeprazole 40 mg twice daily. 19. The patient will also have Humalog insulin 4 units subcutaneous with every meal. SERVICES AFTER DISCHARGE: The patient will have outpatient physical therapy and occupational therapy. FOLLOWUP: The patient will follow up with his primary care provider, Aditya Weston NP. The patient will remain on dual-antiplatelet therapy for 30 days and then go to Plavix monotherapy. Greater than 50 minutes were spent on this discharge of which more than half was face to face instructions to the patient and his on post rehab care and diabetes management. He was examined by me on the day of his discharge and his exam was stable. [id number]/[facility] #: [id number] CAM
== END 2018-05-31 15:26 | disposition home or self-care (01) | DRG 57 ==
LOC: PMRU 18:16
PROVIDERS: ADMIT Physical Medicine & Rehabilitation; ATTEND Physical Medicine & Rehabilitation
PROC: F07Z5ZZ Bed Mobility Treatment (ICD-10-PCS; principal; 2018-05-24)
PROC: F07Z9ZZ Gait Training/Functional Ambulation Treatment (ICD-10-PCS; 2018-05-24)
PROC: F07Z8ZZ Transfer Training Treatment (ICD-10-PCS; 2018-05-24)
PROC: F07Z4ZZ Wheelchair Mobility Treatment (ICD-10-PCS; 2018-05-24)
PROC: F08Z0ZZ Bathing/Showering Techniques Treatment (ICD-10-PCS; 2018-05-24)
PROC: F08Z1ZZ Dressing Techniques Treatment (ICD-10-PCS; 2018-05-24)
PROC: F08Z3ZZ Feeding/Eating Treatment (ICD-10-PCS; 2018-05-24)
PROC: F06Z8ZZ Motor Speech Treatment (ICD-10-PCS; 2018-05-24)
PROC: F08Z2ZZ Grooming/Personal Hygiene Treatment (ICD-10-PCS; 2018-05-24)
DX: I69.351 Hemiplegia and hemiparesis following cerebral infarction affecting right dominant side (principal); I13.0 Hypertensive heart and chronic kidney disease with heart failure and stage 1 through stage 4 chronic kidney disease, or unspecified chronic kidney disease; I50.30 Unspecified diastolic (congestive) heart failure; C90.02 Multiple myeloma in relapse; Z99.81 Dependence on supplemental oxygen; E11.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mellitus with diabetic chronic kidney disease; C43.9 Malignant melanoma of skin, unspecified; I69.322 Dysarthria following cerebral infarction; J44.9 Chronic obstructive pulmonary disease, unspecified; N18.9 Chronic kidney disease, unspecified; I25.10 Atherosclerotic heart disease of native coronary artery without angina pectoris; E03.9 Hypothyroidism, unspecified; K21.9 Gastro-esophageal reflux disease without esophagitis; F32.9 Major depressive disorder, single episode, unspecified; F41.9 Anxiety disorder, unspecified; Z95.5 Presence of coronary angioplasty implant and graft; Z79.82 Long term (current) use of aspirin; Z79.4 Long term (current) use of insulin; Z79.891 Long term (current) use of opiate analgesic; Z79.899 Other long term (current) drug therapy; Z88.1 Allergy status to other antibiotic agents; Z88.8 Allergy status to other drugs, medicaments and biological substances; Z82.49 Family history of ischemic heart disease and other diseases of the circulatory system; Z83.3 Family history of diabetes mellitus
CPT/HCPCS: 36415; 70450; 80053; 84156; 84166; 85025; 94640; 99232; 99233; A9270-GY; G0515-GO; J1644

== ENCOUNTER 2018-06-17 15:40 | Inpatient (IN) | payer BC, MEDICARE ==
--- OUTSIDE RECORDS SUMMARY | 2018-06-17 16:16 | XMS REPORT ---
:1950 External Reference #:[id number] Author Organization [facility] Address [address] [place] [address] [place] [address] Phone [phone] Care Team Providers Name Role Phone Emmanuel David NP Primary Care Physician Unavailable Payers Type Date Identification Numbers Payment Provider Subscriber Commercial Effective: Policy Number: [id number] BS Facets Charo Josse 2012 PayID: [id number] [address] [address] [place] [address] Medigap Part B Effective: 2009 Policy Number: BS Of CNLeonor Mancilla Josse [id number] Expires: 2012 PayID: [id number] [address] [address] [place] [address] Problems Date Description Provider Status Onset: 09/27/2011 Coronary arteriosclerosis Jacqueline Garg D.O. Active Onset: 02/26/2012 Chest pain Jacqueline Garg D.O. Active Onset: 06/04/2012 Hyperlipidemia Brianda Butcher NRoyal Active Onset: 06/04/2012 Benign essential hypertension Brianda Butcher N.Ariel Active Onset: 10/30/2012 Coronary arteriosclerosis Jacqueline Garg D.O. Active Onset: 09/15/2013 Angina decubitus Jacqueline Garg D.O. Active Onset: 11/28/2013 Essential hypertension Jimmie Malone M.D., [facility], Active [facility] Onset: 11/28/2013 Chronic ischemic heart disease Jimmie Malone M.D., [facility], Active [facility] Onset: 11/28/2013 Radiation injury Jimmie Malone M.D., [facility], Active [facility] Onset: 03/26/2015 Tremor Andreia Finn M.D. Active Onset: 03/26/2015 Headache Andreia Finn M.D. Active Onset: 07/14/2015 Essential hypertension Jimmie Malone M.D., [facility], Active [facility] Onset: 07/14/2015 Chronic ischemic heart disease, Jimmie Malone M.D., [facility], Active unspecified [facility] Onset: 08/10/2016 Carpal tunnel syndrome of right Andreia Finn M.D. Active wrist Onset: 12/14/2016 Facial palsy Andreia Finn M.D. Active Onset: 08/14/2017 Snapping thumb syndrome Jericho Herr MD Active Onset: 08/14/2017 Acquired trigger finger Jericho Herr MD Active Onset: 09/05/2017 Angina pectoris Jimmie Malone M.D., [facility], Active [facility] Onset: 09/18/2017 Lateral epicondylitis Jericho Herr MD Active Onset: 10/08/2017 Athscl heart disease of [place] Jimmie Malone M.D., [facility], Active cor art w oth ang pctrs [facility] Onset: 01/09/2018 Preoperative cardiovascular Jimmie Malone M.D., [facility], Active examination [facility] Onset: 02/22/2018 Polyneuropathy Jude Ramos M.D. Active Onset: 02/22/2018 Abnormal gait Jude Ramos M.D. Active Onset: 02/22/2018 Nervous system symptoms Jude Ramos M.D. Active Onset: 02/22/2018 Chronic fatigue syndrome Jude Ramos M.D. Active Onset: 03/20/2018 Athscl heart disease of [place] Jimmie Malone M.D., [facility], Active cor art w unsp ang pctrs [facility] Onset: 06/04/2018 Type 2 diabetes mellitus Jude Ramos M.D. Active Onset: 06/04/2018 Cerebrovascular disease Jude Ramos M.D. Active Onset: 06/04/2018 Cerebral artery occlusion Jude Ramos M.D. 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 Used to smoke cigarettes then pipe then cigars. Recreational Drug Use Denies Drug Use Daily Caffeine Consumes on average 2 cups of regular coffee per day Exercise Type/Frequency Exercises regularly Walks, 3 times a week, 3 miles at a time, Allergies, Adverse Reactions, Alerts Date Description Reaction Status Severity Comments 09/04/2016 Augmentin active diarrhea 01/27/2011 NKDA inactive Medications Medication Date Status Form Strength Qnty SIG Indications Ordering Provider Metoprolol 03/20 Active Tablets ER 100mg 60tab 100mg in Jimmie Succinate 24HR s the am, Stefek, 50mg at M.D., night [facility], [facility] Amlodipine 09/05 Active Tablets 5mg 30tab 1 by I10 Jimmie Besylate s mouth Stefek, every day M.D., [facility], [facility] Isosorbide 10/28 Active Tablets ER 120mg 90tab 1 by mouth Jimmie Mononitrate 24HR s every day Brock Malone, [facility], [facility] Azmacort 04/17 Active Aerosol 75mcg/Act 3Mon 1 puff bid prn Ordering Provider Proair HFA 04/17 Active Aerosol 108(90Bas 1unit 2 puffs po e) s q4h prn Ordering mcg/Act Provider Oxygen Active 4Liters/M qhs Unknown / in Triamcinolone Active Ointment 0.05% 15gm apply to Unknown Acetonide In affected Absorbase area sparingly daily Lantus Active Solution 100Unit/M 70 units Unknown /0000 L qam Oxycodone HCL Active Tablets 10mg half Unknown tablet to one tablet as needed for pain Spiriva Active Capsules 18mcg 1 unit Unknown Handihaler 0000 inhalation daily Gabapentin Active Capsules 300mg 1 am and Unknown /0000 1 hs Omeprazole Active Capsules 40mg Twice A Unknown /0000 DR Day Aspir-[address] 81mg 1 by mouth Unknown / every day Vitamin D High Active Capsules 2000Units 2 by mouth Unknown Potency / every day Alprazolam Active Tablets 0.5mg half tab Unknown to one tablet twice a day as needed Nitroglycerin Active Tablets 0.4mg 30tab 1 sl Sub s q5mins x3 Stefek, as needed M.D., for chest FACC, pain [facility] Levothyroxine Active Tablets 50mcg 1 by mouth Unknown Sodium every day Furosemide Active Tablets 40mg 1 by mouth Unknown every day Foradil Aerolizer Active Capsules 12mcg inhale one Unknown /0000 capsule twice a day Ventolin HFA Active Aerosol 108(90Bas inhale one Unknown e) puff every mcg/Act 4 to 6 hours as needed Asmanex HFA Active Aerosol one puff Unknown once a day Atorvastatin Active Tablets 20mg take 1 Unknown Calcium 0000 tablet at bedtime Ondansetron Active Tablets 4mg one tablet Unknown Dispers three times a day as needed Lidocaine Active Patch 5% appy to as Unknown /[address] Humalog Kwikpen Active Solution 100Unit/M 4 units Unknown Pen-Inject L with each meal Clopidogrel Active Tablets 75mg [place], Bisulfate /0000 MD Juan Tramadol HCL 04/29 Hx Tablets 50mg 30tab 1-2 Jericho s tablets by MD Carmenza - mouth 06/03 every hours as needed pain Atorvastatin 11/26 Hx Tablets 80mg 1 by mouth Jimmie Calcium every day Faisal, - M.DPaul, 04[facility] Atorvastatin 09/12 Hx Tablets 20mg 90tab take 1 [facility] - bed[facility] M.D., 11/26 [facility]AC [facility] Humalog Kwikpen 12/14 Hx Solution 100Unit/M 15ml sliding Pen-Inject L scale Antoine Finn M.D. 10/18 Acyclovir 12/14 Hx Tablets 400mg 30tab take 1 . s tablet by Huma, - mouth M.D. 12/19 twice a day prn Valium 12/14 Hx Tablets 5mg 2tabs 1 - 2 tab . PO prior Huma, - to MRI M.D. 07/25 Metoprolol 07/14 Hx Tablets ER 50mg 180ta 1.5 Jimmie Succinate 24HR bs tablets by Faisal, - mouth in M.D., 03/20 in the [facility] morning 1 [facility] pill in at night Clopidogrel 10/27 Hx Tablets 75mg 90tab 1 po qd Jimmie Bisulf s Antoine Malone M.D., 03/22 [facility] Council 09/23 Hx Tablets 5-325mg 20tab 1-2 by Norberto s mouth qpatti Roy, - as needed M.D. 07/13 Nortriptyline HCL 05/21 Hx Capsules 10mg 120ca 3 po qhs Andreia . ps Antoine Finn M.D. 03/22 Valium 05/19 Hx Tablets 5mg 2tabs 1 - 2 tabs 333.1 by mouth Manuela, - prior to M.D. 03/22 Imdur 01/02 Hx Tablets ER 60mg 150ta 1 1/2 po Jimmie 24HR bs qd Antoine Malone M.D., 10/28 [facility] Diltiazem HCL ER 11/28 Hx Caps ER 120mg 180ca 1 cap by Jimmie 24HR ps mouth Faisal, - twice a M.D., 08/14 day [facility] Imdur 11/24 Hx Tablets ER 60mg 30tab 1 po qd Jimmie 24HR s Antoine Malone M.D., 01/02 [facility] Imdur 11/13 Hx Tablets ER 30mg 30tab 1 po qd Jacqueline 24HR s Antoine Garg D.O. 11/24 Diltiazem CD 10/27 Hx Caps [...] ER 50mg 45tab take one Jimmie Succinate 24HR s tablet by Antoine Malone M.D., 07/14 every [facility] morning [facility] Atorvastatin 02/25 Hx Tablets 40mg 30tab take one Jimmie Calcium s tablet by Antoine Malone M.D., 09/03 every day [facility] Toprol XL 02/23 Hx Tablets ER 50mg 30tab 1 po qd 24HR s Antoine Garg.O. 09/15 Metoprolol 02/16 Hx Tablets 50mg 60tab 1 po qd Tar Antoine Stallworth.O. 02/23 Simvastatin 02/16 Hx Tablets 40mg 30tab Take One s Tablet By [place] - Mouth D.O. 02/25 Evening Plavix 02/16 Hx Tablets 75mg 30tab Take One s Tablet By [place] - Mouth D.O. 04/17 Nitrostat 02/16 Hx Tablets 0.4mg 25tab place 1 Sub s tablet Faisal - under the M.DPaul, 09/25 tongue [facility] every [facility] minutes up to 3 doses as needed [...] sc bid Unknown /0000 ML - 01/30 Metformin HCL Hx Tablets 1000mg 1/2 tablet Unknown /0000 twice - daily (500 /30 mg twice /2018 daily) Viagra Hx Tablets 100mg 8tabs 1 po [...] po qd Unknown /0000 s - 09/27 Multiple Vitamins 00/00 Hx Tablets 1 po qd Unknown /0000 - 03/19 Protonix 00/[address] 40mg 100ta 1 po qd Unknown /0000 bs - 04/17 Novolog Penfill 00/00 Hx Solution 100Unit/M 10-20 Unknown /0000 L units - before 09/03 (depending on sugar), 45 units @ noon, and 30 units before supper daily. Fish Oil 00/00 Hx 1 qd Unknown /0000 - 11/04 Zantac 00/00 Hx Capsules 150mg 1 po qd Unknown /0000 - 09/15 Protonix 00/[address] 40mg 30tab 1 po qd Unknown /0000 s - 09/25 Calcitriol 00/ Hx Capsules 0.25mcg 90cap 1 po qd Unknown /0000 s - 09/03 Vitamin D 400 00/ Hx qd Unknown /0000 - 03/22 Topiramate 00/00 Hx Tablets 25mg 120ta 1 tab po q Unknown /0000 bs evening - 10/27 Iron 00/00 Hx Tablets 325(65Fe) 1 by mouth Unknown /0000 mg every day - 12/19 Hydrochlorothiazi 00/ Hx Tablets 25mg 1 by mouth Unknown de /0000 every day - 01/02 Morphine Sulfate 00/00 Hx Caps ER 30mg 1 by mouth Unknown ER /0000 24HR bid prn - 09/03 Gabapentin 00/ Hx Tablets 600mg bid Unknown /0000 - 09/25 Flexeril 00/00 Hx Tablets 10mg as needed Unknown /0000 - 07/25 Zofran 00/00 Hx Tablets 4mg 1 tab by Unknown /0000 mouth - every 6 10/04 hours needed nausea Valtrex 00 Hx Tablets 500mg take 1 Unknown /0000 tablet by - mouth 12/14 twice a day as needed Chemo Therapy 00/00 Hx Unknown /0000 - 09/25 Lasix 00/00 Hx Tablets 20mg 1 by mouth Unknown /0000 every day - 09/03 Colace 00/00 Hx Capsules 100mg 2 po daily Unknown /0000 prn - 07/25 Humalog 00/00 Hx Solution 100Unit/M as Unknown /0000 Cartridge L directed - 09/25 Losartan 00/00 Hx Tablets 50mg 1 by mouth Unknown Potassium /0000 every day - 07/23 Revlimid 00/00 Hx Capsules 10mg on for 21 Unknown [...] Unknown /0000 24HR every day - 09/25 Nystatin Hx Powder 10Bu Unknown /0000 - 04/24 Novolog Mix 70/30 00/00 Hx Supn (70-30)10 20 units Unknown Prefilled Flexpen /0000 0Unit/ML prior to - breakfast, 06/03 45 units /2017 prior to lunch, 30 units prior to dinner. Lasix 00 Hx Tablets 40mg 1 by mouth Unknown /0000 every day - 06/03 Medications Administered in Office Medication Date Status Form Strength Qnty SIG Indications Ordering Provider Celestone 3 mg Administered Injection Jericho and 3mg 018 MD Carmenza Celestone 3 mg Administered Injection Jericho and 3mg 017 MD Elina Herrestone 3 mg Administered Injection Jericho and 3mg 017 MD Elina Herrestone 3 mg Administered Injection Jericho and 3mg [...] Roy Vital Signs Date Vital Result Comment 06/04/2018 Height 65 inches 5'5" Weight 147.00 lb Heart Rate 72 /min BP Systolic 158 mmHg BP Diastolic 70 mmHg Respiratory Rate 20 /min BMI (Body Mass Index) 24.5 kg/m2 05/10/2018 Height 65 inches 5'5" Heart Rate 78 /min BP Systolic 142 mmHg BP Diastolic 76 mmHg Respiratory Rate 18 /min Body Temperature 98.0 F Pain Level 2 04/26/2018 Height 65 inches 5'5" Weight 252.00 lb Heart Rate 72 /min BP Systolic Sitting 148 mmHg BP Diastolic Sitting 80 mmHg Respiratory Rate 16 /min BMI (Body Mass Index) 41.9 kg/m2 04/12/2018 Height 65 inches 5'5" Weight 258.75 lb Heart Rate 78 /min BP Systolic 126 mmHg BP Diastolic 72 mmHg Respiratory Rate 14 /min Body Temperature 98.3 F Pain Level 6 BMI (Body Mass Index) 43.1 kg/m2 04/08/2018 Height 65 inches 5'5" Weight 256.00 lb w/ shoes Heart Rate 70 /min reg BP Systolic Sitting 130 mmHg Lue, lg cuff BP Diastolic Sitting 70 mmHg Lue, lg cuff BP Systolic Standing 126 mmHg Lue BP Diastolic Standing 70 mmHg Lue Respiratory Rate 16 /min BMI (Body Mass Index) 42.6 kg/m2 Ejection Fraction 55-60% as of 10/2017 echo 03/20/2018 Height 65 inches 5'5" Weight 255.00 lb w/ shoes 248 at home w/o clothing Heart Rate 80 /min BP Systolic Sitting 152 mmHg lue lg cuff BP Diastolic Sitting 82 mmHg lue lg cuff BP Systolic Standing 158 mmHg lue lg cuff BP Diastolic Standing 82 mmHg lue lg cuff Respiratory Rate 22 /min BMI (Body Mass Index) 42.4 kg/m2 Ejection Fraction 55-60% echo 10/28/17 02/22/2018 Height 65 inches 5'5" Weight 244.00 lb Heart Rate 72 /min BP Systolic Sitting 138 mmHg BP Diastolic Sitting 60 mmHg Respiratory Rate 16 /min BMI (Body Mass Index) 40.6 kg/m2 01/09/2018 Height 65 inches 5'5" Weight 244.00 lb Heart Rate 70 /min BP Systolic Sitting 132 mmHg lue large cuff BP Diastolic Sitting 72 mmHg lue large cuff BP Systolic Standing 138 mmHg lue large cuff BP Diastolic Standing 68 mmHg lue large cuff Respiratory Rate 18 /min BMI (Body Mass Index) 40.6 kg/m2 Ejection Fraction 55-60% echo 10/28/17 12/24/2017 Height 65 inches 5'5" Weight 247.00 lb w/ shoes Heart Rate 74 /min BP Systolic Sitting 142 mmHg lue large cuff BP Diastolic Sitting 82 mmHg lue large cuff BP Systolic Standing 152 mmHg lue large cuff BP Diastolic Standing 74 mmHg lue large cuff Respiratory Rate 18 /min BMI (Body Mass Index) 41.1 kg/m2 Ejection Fraction 55-60% ECHO 10/28/17 10/24/2017 Height 65 inches 5'5" Weight 247.00 lb stated by pt weighed at home w/o clothes Heart Rate 68 /min BP Systolic Sitting 132 mmHg lue large cuff BP Diastolic Sitting 76 mmHg lue large cuff BP Systolic Standing 138 mmHg lue large cuff BP Diastolic Standing 74 mmHg lue large cuff Respiratory Rate 18 /min BMI (Body Mass Index) 41.1 kg/m2 Ejection Fraction 55-60% echo 05/15/16 10/08/2017 Height 65 inches 5'5" Weight 252.00 [...] kg/m2 Ejection Fraction 55%-60% 05/15/16 echo 09/18/2017 Heart Rate 70 /min irregular BP Systolic Sitting 132 mmHg lue large cuff BP Diastolic Sitting 64 mmHg lue large cuff BP Systolic Standing 140 mmHg lue large cuff BP Diastolic Standing 70 mmHg lue large cuff 09/18/2017 Height 65 inches 5'5" Weight 248.00 [...] Result H/L Range Note Laboratory test finding 04/29/2018 Point of Care Glucose 142 mg/dL High 70 -100 1 Laboratory test finding 04/29/2018 Point of Care Glucose 186 mg/dL High 70 -100 2 Laboratory test finding 02/22/2018 Lyme Disease Serology Negative Negative 3 Laboratory test finding 02/22/2018 Vitamin B12 515 pg/mL 180-914 4 Folic Acid (Folate) 18.54 ng/mL >3.99 Connective Tissue Panel 02/22/2018 Anti-Nuclear Antibody 0.8 U 5 Cyclic Citrullinated Peptide <15.6 U 6 Interpretation See Comment 7 Laboratory test finding 02/22/2018 PSA Screening 0.885 ng/mL 0-4.0 8 Protein Electrophoresis 02/22/2018 Total Protein(Pep) 6.9 g/dL 6.3 - 7.9 Albumin 3.4 g/dL 3.4-4.7 Alpha-1 Globulin 0.3 g/dL 0.1-0.3 Alpha-2 Globulin 1.1 g/dL 0.6-1.0 Beta Globulin 1.0 g/dL 0.7-1.2 Gamma Globulin 1.3 g/dL 0.6-1.6 Albumin/Globulin Ratio 0.95 M Fercho 0.9 g/dL Impression See Comment 9 Anca Panel For Vasculitis 02/22/2018 Myeloperoxidase AB < 0.2 U 10 Proteinase 3 AB < 0.2 U 11 Laboratory test finding 02/22/2018 TSH (Thyroid Stim 38.30 mcIU/mL High 0.34-5.60 Horm) Free T4 (Free Thyroxine) 0.47 ng/dL Low 0.61-1.12 CBC Auto Diff 02/22/2018 White Blood Count 8.4 10^3/uL 3.5-10.8 Red Blood Count 3.05 10^6/uL Low 4.0-5.4 Hemoglobin 9.5 g/dL Low 14.0-18.0 Hematocrit 28 % Low 42-52 Mean Corpuscular Volume 93 fL 80-94 Mean Corpuscular Hemoglobin 31 pg 27-31 Mean Corpuscular HGB Conc 34 g/dL 31-36 Red Cell Distribution Width 20 % High 10.5-15 Platelet Count 236 10^3/uL 150-450 Mean Platelet Volume 7.4 um3 7.4-10.4 Abs Neutrophils 5.6 10^3/uL 1.5-7.7 Abs Lymphocytes 1.9 10^3/uL 1.0-4.8 Abs Monocytes 0.5 10^3/uL 0-0.8 Abs Eosinophils 0.3 10^3/uL 0-0.6 Abs Basophils 0 10^3/uL 0-0.2 Abs Nucleated RBC 0 10^3/uL Granulocyte % 66.9 % 38-83 Lymphocyte % 22.9 % Low 25-47 Monocyte % 6.2 % 0-7 Eosinophil % 3.5 % 0-6 Basophil % 0.5 % 0-2 Nucleated Red Blood Cells % 0 Comp Metabolic Panel 02/22/2018 Sodium 136 mmol/L Low 139-145 Potassium 4.1 mmol/L 3.5-5.0 Chloride 101 mmol/L 101-111 Co2 Carbon Dioxide 27 mmol/L 22-32 Anion Gap 8 mmol/L 2-11 Glucose 210 mg/dL High 70-100 Blood Urea Nitrogen 36 mg/dL High 6-24 Creatinine 2.63 mg/dL High 0.67-1.17 BUN/Creatinine Ratio 13.7 8-20 Calcium 8.8 mg/dL 8.6-10.3 Total Protein 6.5 g/dL 6.4-8.9 Albumin 3.7 g/dL 3.2-5.2 Globulin 2.8 g/dL 2-4 Albumin/Globulin Ratio 1.3 1-3 Total Bilirubin 0.40 mg/dL 0.2-1.0 Alkaline Phosphatase 74 U/L 34-104 Alt 14 U/L 7-52 Ast 13 U/L 13-39 Egfr Non- 24.4 >60 Egfr 31.4 >60 12 [place]/Lambda Free Light Chains 02/22/2018 [place] Free Light Chain 4.13 mg/dL 13 Ser Lambda Free Light Chain 7.53 mg/dL 14 [place]/Lambda Free Light Chain 0.5485 15 Immunoglobulins Serum Quant 02/22/2018 Immunoglobulin G 1330 mg/dL 767 - 1590 16 Immunoglobulin M 26 mg/dL 37 - 286 Immunoglobulin A 142 mg/dL 61 - 356 Basic Metabolic Panel 02/05/2018 Sodium 137 mmol/L Low 139-145 Potassium 4.8 mmol/L 3.5-5.0 Chloride 103 mmol/L 101-111 Co2 Carbon Dioxide 27 mmol/L 22-32 Anion Gap 7 mmol/L 2-11 Glucose 131 mg/dL High 70-100 Blood Urea Nitrogen 32 mg/dL High 6-24 Creatinine 2.70 mg/dL High 0.67-1.17 BUN/Creatinine Ratio 11.9 8-20 Calcium 9.1 mg/dL 8.6-10.3 Egfr Non- 23.7 >60 Egfr 30.5 >60 17 Lipid Profile (Trig/Chol/HDL) 11/26/2017 Triglycerides 98 mg/dL 18, 19 Cholesterol 90 mg/dL 18, 20 HDL Cholesterol 24.9 mg/dL 18, 21 LDL Cholesterol 46 mg/dL 18, 22 Laboratory test finding 11/26/2017 Alt (SGPT) 14 U/L 7-52 18, 23 Ast (Sgot) 11 U/L Low 13-39 18, 24 Basic Metabolic Panel 10/04/2017 Sodium 138 mmol/L 133-145 Potassium 4.0 mmol/L 3.5-5.0 Chloride 104 mmol/L 101-111 Co2 Carbon Dioxide 28 mmol/L 22-32 Anion Gap 6 mmol/L 2-11 Glucose 122 mg/dL High 70-100 Blood Urea Nitrogen 26 mg/dL High 6-24 Creatinine 1.71 mg/dL High 0.67-1.17 BUN/Creatinine Ratio 15.2 8-20 Calcium 9.0 mg/dL 8.6-10.3 Egfr Non- 40.1 >60 Egfr 51.6 >60 25 Laboratory test finding 10/02/2017 Point of Care 141 mg/dL High 70-100 26 Glucose Cath Panel 09/26/2017 Partial Thrombo Time [...] % 0.1 Inr/Protime 09/26/2017 Inr 0.85 0.77-1.02 27 Basic Metabolic Panel 09/26/2017 Sodium 133 mmol/L 133-145 Potassium 4.3 mmol/L 3.5-5.0 Chloride 99 mmol/L Low 101-111 Co2 Carbon Dioxide 29 mmol/L 22-32 Anion Gap 5 mmol/L 2-11 Glucose 235 mg/dL High 70-100 Blood Urea Nitrogen 24 mg/dL 6-24 Creatinine 1.82 mg/dL High 0.67-1.17 BUN/Creatinine Ratio 13.2 8-20 Calcium 8.6 mg/dL 8.6-10.3 Egfr Non- 37.3 >60 Egfr 48.0 >60 28 Laboratory test finding 09/06/2017 Alt (SGPT) 14 U/L 7-52 Ast (Sgot) 15 U/L 13-39 Lipid Profile (Trig/Chol/HDL) 09/06/2017 Triglycerides 190 mg/dL 29 Cholesterol 233 mg/dL 30 HDL Cholesterol 33.2 mg/dL 31 LDL Cholesterol 162 mg/dL 32 Basic Metabolic Panel 09/06/2017 Sodium 137 mmol/L 133-145 Potassium 4.2 mmol/L 3.5-5.0 Chloride 102 mmol/L 101-111 Co2 Carbon Dioxide 30 mmol/L 22-32 Anion Gap 5 mmol/L 2-11 Glucose 171 mg/dL High 70-100 Blood Urea Nitrogen 27 mg/dL High 6-24 Creatinine 1.54 mg/dL High 0.67-1.17 BUN/Creatinine Ratio 17.5 8-20 Calcium 9.5 mg/dL 8.6-10.3 Egfr Non- 45.3 >60 Egfr 58.2 >60 33 Laboratory test finding 09/06/2017 Alt 14 U/L 7-52 Ast (Sgot) 15 U/L 13-39 Lipid Profile (Trig/Chol/HDL) 09/06/2017 Triglycerides 190 mg/dL 34 Cholesterol 233 mg/dL 35 HDL Cholesterol 33.2 mg/dL 36 LDL Cholesterol 162 mg/dL 37 Basic Metabolic Panel 09/06/2017 Sodium 137 mmol/L 133-145 Potassium 4.2 mmol/L 3.5-5.0 Chloride 102 mmol/L 101-111 Co2 Carbon Dioxide 30 mmol/L 22-32 Anion Gap 5 mmol/L 2-11 Glucose 171 mg/dL High 70-100 Blood Urea Nitrogen 27 mg/dL High 6-24 Creatinine 1.54 mg/dL High 0.67-1.17 BUN/Creatinine Ratio 17.5 8-20 Calcium 9.5 mg/dL 8.6-10.3 Egfr Non- 45.3 >60 Egfr 58.2 >60 38 Basic Metabolic Panel 12/14/2016 Sodium 133 mmol/L 133-145 Potassium 4.1 mmol/L 3.5-5.0 Chloride 100 mmol/L Low 101-111 Co2 Carbon Dioxide 27 mmol/L 22-32 Anion Gap 6 mmol/L 2-11 Glucose 207 mg/dL High 70-100 Blood Urea Nitrogen 20 mg/dL 6-24 Creatinine 2.01 mg/dL High 0.67-1.17 BUN/Creatinine Ratio 10.0 8-20 Calcium 9.4 mg/dL 8.6-10.3 Egfr Non- 33.4 >60 Egfr 43.0 >60 39 Laboratory test finding 09/06/2016 Alt (SGPT) 15 U/L 7-52 40 Ast (Sgot) 11 U/L Low 13-39 41 Lipid Profile (Trig/Chol/HDL) 09/06/2016 Triglycerides 116 mg/dL 42 Cholesterol 135 mg/dL 43 HDL Cholesterol 27.9 mg/dL 44 LDL Cholesterol 84 mg/dL 45 CBC Auto Diff 03/28/2016 White Blood Count [...] 0-2 Nucleated Red Blood Cells % 0 Laboratory test finding 03/28/2016 Magnesium 1.7 mg/dL Low 1.9-2.7 Comp Metabolic Panel 03/28/2016 Sodium 136 mmol/L [...] Egfr Non- 53.5 >60 Egfr 68.8 >60 46 Laboratory test finding 11/04/2014 Alt 49 U/L 7-52 18, 47 Ast 25 U/L 13-39 18, 48 Lipid Profile (Trig/Chol/HDL) 11/04/2014 Triglycerides 86 mg/dL 18, 49 Cholesterol 108 mg/dL 18, 50 HDL Cholesterol 37.0 mg/dL 18, 51 LDL Cholesterol 54 mg/dL 18, 52 Laboratory test finding 05/21/2014 Erythrocyte Sed Rate [...] Egfr Non- 51.2 >60 Egfr 65.8 >60 53 Laboratory test finding 11/19/2013 Activated Partial 28.7 seconds 24.0- 36.1 Thrombo Time Inr/Protime 11/19/2013 Inr 0.92 0.85-1.06 CBC No Diff 11/19/2013 White Blood Count [...] 150-450 Mean Platelet Volume 8 um3 7.4-10.4 Basic Metabolic Panel 11/19/2013 Sodium 132 mmol/L Low 133-145 Potassium 4.1 mmol/L 3.5-5.0 Chloride 101 mmol/L 101-111 Co2 Carbon Dioxide 27.0 mmol/L 22-32 Anion Gap 4.0 mmol/L 2-11 Glucose 192 mg/dL High 70-100 Blood Urea Nitrogen 21 mg/dL 6-24 Creatinine 1.50 mg/dL High 0.50-1.40 BUN/Creatinine Ratio 14.0 8-20 Calcium 8.6 mg/dL 8.1-9.9 Egfr Non- 47.3 >60 Egfr 60.8 >60 54 Basic Metabolic Panel 09/25/2013 Sodium 133 mmol/L 133-145 Potassium 4.3 mmol/L 3.5-5.0 Chloride 100 mmol/L Low 101-111 Co2 Carbon Dioxide 27.0 mmol/L 22-32 Anion Gap 6.0 mmol/L 2-11 Glucose 229 mg/dL High 70-100 Blood Urea Nitrogen 18 mg/dL 6-24 Creatinine 1.50 mg/dL High 0.50-1.40 BUN/Creatinine Ratio 12.0 8-20 Calcium 8.8 mg/dL 8.1-9.9 Egfr Non- 47.3 >60 Egfr 60.8 >60 55 Basic Metabolic Panel 09/17/2013 Sodium 133 mmol/L 133-145 Potassium 4.6 mmol/L 3.5-5.0 Chloride 101 mmol/L 101-111 Co2 Carbon Dioxide 28.0 mmol/L 22-32 Anion Gap 4.0 mmol/L 2-11 Glucose 136 mg/dL High 70-100 Blood Urea Nitrogen 17 mg/dL 6-24 Creatinine 1.40 mg/dL 0.50-1.40 BUN/Creatinine Ratio 12.1 8-20 Calcium 8.9 mg/dL 8.1-9.9 Egfr Non- 51.2 >60 Egfr 65.8 >60 56 CBC Auto Diff 09/17/2013 White Blood Count [...] % 0 Inr/Protime 09/17/2013 Inr 0.90 0.85-1.06 57 Cell Morphology 09/17/2013 Microcytosis 1+ Hypochromasia 1+ Basophilic Stippling 1+ Lipid Profile (Trig/Chol/HDL) 04/03/2013 Triglycerides 109 mg/dL 40-200 Cholesterol 111 mg/dL Less than 200 HDL Cholesterol 35 mg/dL Low 40-60 58 Cholesterol/HDL Ratio 3.2 Average 1-4.44 LDL Cholesterol 54.2 Less Than 100 59 Laboratory test finding 04/03/2013 Alt 29 U/L 14-54 60 Ast 21 U/L 12-42 61 Lipid Profile (Trig/Chol/HDL) 10/23/2012 Triglycerides 128 mg/dL 40-200 Cholesterol 93 mg/dL Low Less than 200 HDL Cholesterol 24 mg/dL Low 40-60 62 Cholesterol/HDL Ratio 3.9 Average 1-4.44 LDL Cholesterol 43.4 mg/dL Less Than 100 63 Urine Culture & 07/06/2012 M <SEE NOTE> 64 Sensitivi Lipid Profile 06/04/2012 Triglyceride 141 mg/dL 40-200 18 (Trig/Chol/HDL) Cholesterol 115 mg/dL Less Than 200 18, 65 High Density Lipoprotein 34 mg/dL Low 40-60 18, 66 Cholesterol/HDL Ratio 3.38 AVERAGE 1-4.97 18 Low Density Lipoprotein 53 mg/dL Less Than 100 18, 67 Laboratory test finding 06/04/2012 Ast (Sgot) 28 U/L 12-42 18 Alt (SGPT) 41 U/L 17-63 18 Lipid Profile (Trig/Chol/HDL) 02/21/2012 Triglyceride 134 mg/dL 40-200 Cholesterol 124 mg/dL Less Than 200 68 High Density Lipoprotein 29 mg/dL Low 40-60 69 Cholesterol/HDL Ratio 4.28 AVERAGE 1-4.97 Low Density Lipoprotein 68 mg/dL Less Than 100 70 Laboratory test finding 02/21/2012 Alt (SGPT) 35 U/L 17-63 Ast (Sgot) 29 U/L 12-42 Lipid Profile (Trig/Chol/HDL) 09/07/2011 Triglyceride 162 mg/dL 40-200 Cholesterol 123 mg/dL Less Than 200 71 High Density Lipoprotein 31 mg/dL Low 40-60 72 Cholesterol/HDL Ratio 3.97 AVERAGE 1-4.97 Low Density Lipoprotein 60 mg/dL Less Than 100 73 Liver Function Panel 09/07/2011 Total Protein 7.3 GM/DL 6.2-8.1 Albumin 3.8 GM/DL 3.2-5.2 Globulin 3.5 GM/DL 2-4 Albumin/Globulin Ratio 1.1 1-3 Bilirubin Total 0.6 mg/dL 0.4-1.5 74 Bilirubin Direct 0.1 mg/dL 0.1-0.5 Indirect Bilirubin 0.5 mg/dL 0.3-1.0 75 Alkaline Phosphatase 72 U/L 39-117 Alt (SGPT) 36 U/L 17-63 Ast (Sgot) 25 U/L 12-42 Liver Function Panel 03/13/2011 Total Protein 6.9 GM/DL 6.2-8.1 Albumin 3.6 GM/DL 3.2-5.2 Globulin 3.3 GM/DL 2-4 Albumin/Globulin Ratio 1.1 1-3 Bilirubin Total 0.8 mg/dL 0.4-1.5 76 Bilirubin Direct 0.1 mg/dL 0.1-0.5 Indirect Bilirubin 0.7 mg/dL 0.3-1.0 77 Alkaline Phosphatase 64 U/L 39-117 Alt (SGPT) 34 U/L 17-63 Ast (Sgot) 25 U/L 12-42 Lipid Profile (Trig/Chol/HDL) 03/13/2011 Triglyceride 151 mg/dL 40-200 Cholesterol 110 mg/dL Less Than 200 78 High Density Lipoprotein 29 mg/dL Low 40-60 79 Cholesterol/HDL Ratio 3.79 AVERAGE 1-4.97 Low Density Lipoprotein 51 mg/dL Less Than 100 80 Basic Metabolic Panel 02/13/2011 Sodium 132 mmol/L Low 135-145 Potassium 4.6 mmol/L 3.5-5.0 Chloride 97 mmol/L Low 101-111 Co2 (Carbon Dioxide) 29.0 mmol/L 22-32 Anion Gap 6.0 mmol/L 2-11 81 Glucose 186 mg/dL High 70-100 BUN 17 mg/dL 6-24 Creatinine 1.30 mg/dL 0.50-1.40 One Over Creatinine 0.70 BUN/Creatinine Ratio 13.1 8-20 Calcium 9.4 mg/dL 8.1-9.9 eGFR Non- 56.3 > 60 eGFR 72.4 > 60 82 Basic Metabolic Panel 02/06/2011 Sodium 134 mmol/L Low 135-145 18 Potassium 4.3 mmol/L 3.5-5.0 18 Chloride 95 mmol/L Low 101-111 18 Co2 (Carbon Dioxide) 28.0 mmol/L 22-32 18 Anion Gap 11.0 mmol/L 2-11 18, 83 Glucose 179 mg/dL High 70-100 18 BUN 26 mg/dL High 6-24 18 Creatinine 1.40 mg/dL 0.50-1.40 18 One Over Creatinine 0.70 18 BUN/Creatinine Ratio 18.6 8-20 18 Calcium 9.6 mg/dL 8.1-9.9 18 eGFR Non- 51.7 > 60 18 eGFR 66.5 > 60 18, 84 MRSA/Vre Screen 02/02/2011 MRSA/Vre Culture [facility] 85 Basic Metabolic Panel 01/30/2011 Sodium 134 mmol/L Low 135-145 86 Potassium 4.0 mmol/L 3.5-5.0 86 Chloride 101 mmol/L 101-111 86 Co2 (Carbon Dioxide) 25.0 mmol/L 22-32 86 Anion Gap 8.0 mmol/L 2-11 86, 87 Glucose 247 mg/dL High 70-100 86 BUN 19 mg/dL 6-24 86 Creatinine 1.20 mg/dL 0.50-1.40 86 One Over Creatinine 0.80 86 BUN/Creatinine Ratio 15.8 8-20 86 Calcium 9.5 mg/dL 8.1-9.9 86 eGFR Non- 61.8 > 60 86 eGFR 79.4 > 60 86, 88 Protime 01/30/2011 Inr 0.94 0.82-1.17 86, 89 Protime 11.0 SEC 10.2-14.8 86, 90 CBC Auto Diff 01/30/2011 White Blood Count 8.2 CUMM 4.8-10.8 86 Red Cell Count 4.53 CUMM Low 4.6-6.2 86 Hemoglobin 13.4 g/dL Low 14.0-18.0 86 Hematocrit 40 % Low 42-52 86 Mean Corpuscular Volume 88 um3 80-94 86 Mean Corpuscular Hemoglob 30 pg 27-31 86 Mean Corpuscular HGB Cone 34 g/dL 32-36 86 Redcell Distribution WDTH 15 % 10.5-15 86 Platelet Count 267 CUMM 150-450 86 Mean Platelet Volume 8.0 um3 7.4-10.4 86 Gran % 70.7 % 38-83 86 Lymph % 19.9 % Low 25-47 86 Mononuclear % 5.7 % 1-9 86 Eosinophil % 3.3 % 0-6 86 Basophil % 0.4 % 0-2 86 Abs Lymphs 1.6 1.0-4.8 86 Abs Mononuclear 0.5 0-0.8 86 Absolute Neutrophil Count 5.8 1.5-7.7 86 Abs Eosinophils 0.3 0-0.6 86 Abs Basophils 0 0-0.2 86, 91 Basic Metabolic Panel 07/31/2008 Sodium 133 mmol/L Low 135-145 92 Potassium 4.4 mmol/L 3.5-5.0 92 Chloride 96 mmol/L Low 101-111 92 Co2 (Carbon Dioxide) 30.0 mmol/L 22-32 92 Anion Gap 7.0 mmol/L 2-11 92, 93 Glucose 208 mg/dL High 70-100 92, 94 BUN 19 mg/dL 6-24 92 Creatinine 1.2 mg/dL 0.5-1.4 92 One Over Creatinine 0.83 92 BUN/Creatinine Ratio 15.8 8-20 92 Calcium 9.9 mg/dL 8.1-9.9 92, 95 CBC With Electronic Diff 07/31/2008 White Blood Count 7.8 CUMM 4.8-10.8 92 Red Cell Count 4.88 CUMM 4.6-6.2 92 Hemoglobin 14.8 g/dL 14.0-18.0 92 Hematocrit 43 % 42-52 92 Mean Corpuscular Volume 87 um3 80-94 92 Mean Corpuscular Hemoglob 30 pg 27-31 92 Mean Corpuscular HGB Cone 35 g/dL 32-36 92 Redcell Distribution WDTH 14 % 10.5-15 92 Platelet Count 307 CUMM 150-450 92 Mean Platelet Volume 7.2 um3 Low 7.4-10.4 92 Gran % 70.4 % 38-83 92 Lymph % 21.1 % 20-45 92 Mononuclear % 5.7 % 1-9 92 Eosinophil % 2.3 % 0-6 92 Basophil % 0.5 % 0-2 92 Abs Lymphs 1.7 1.0-4.8 92 Abs Mononuclear 0.4 0-0.8 92 Absolute Neutrophil Count 5.5 1.5-7.7 92 Abs Eosinophils 0.2 0-0.6 92 Abs Basophils 0 0-0.2 92 1 Aircraft Pne[employer]raulic [employer] Mechanic: [id number] 2 Aircraft Pneudraulic Systems Mechanic: [id number] 3 No evidence of antibodies to B. burgdorferi detected. False negative results may occur in recently infected patients (<=2 weeks) due to low or undetectable antibody levels to B. burgdorferi. If recent exposure is suspected, a second sample should be collected and tested in 2-4 weeks. Test Performed by: [facility] [address] [place] [address] 4 Normal Range 180 to 914 Indeterminate Range 145 to 180 Deficient Range <145 5 REFERENCE VALUE <=1.0 (Negative) 6 REFERENCE VALUE <20.0 (Negative) 7 Tests for antibodies to dsDNA and CHRISTINE antigens are not performed automatically unless the JOSH result is > or= 3.0 U. Studies performed at [facility] indicate that positive JOSH results <3.0 U are rarely accompanied by positive second order tests. Test Performed by: [place] [id number] 8 Serum levels of PSA measured using the Kim Lola Pirindola DXI Hybritech immunoassay should not be interpreted as absolute evidence of the presence or absence of disease. The PSA value should be used in conjunction with other pertinent clinical diagnostic procedures. The values obtained with different assay methods or kits cannot be used interchangeably. 9 M-spike in gamma fraction. Size of monoclonal protein not changed significantly since 11/13/2017. Test Performed by: [facility] - [address] [address] 10 REFERENCE VALUE <0.4 (Negative) 11 REFERENCE VALUE <0.4 (Negative) Test Performed by: [address] [id number] 12 Because ethnic data is not always readily [...] 15-29 5 Kidney failure <15 (or dialysis) 13 REFERENCE VALUE 0.3300-1.94 14 REFERENCE VALUE 0.5700-2.63 15 REFERENCE VALUE 0.2600-1.65 Test Performed by: [place] [address] 16 Test Performed by: [place] [address] 17 Because ethnic data is not always readily [...] 15-29 5 Kidney failure <15 (or dialysis) 18 FASTING 19 Desirable: <150 Borderline High: 150-199 High: 200-499 Very High: >500 20 Desirable: <200 Borderline High: 200-239 High: >239 21 Low: <40 Desirable: 40-60 High: >60 22 Desirable: <100 Near Optimal: 100-129 Borderline High: 130-159 High: 160-189 Very High: >189 23 FASTING 24 FASTING 25 Because ethnic data is not always readily [...] 15-29 5 Kidney failure <15 (or dialysis) 26 Aircraft Pneudraulic [employer] Mechanic: [id number] 27 Please note the change in INR reference range effective 17. 28 Because ethnic data is not always [...] 5 Kidney failure <15 (or dialysis) 29 Desirable: <150 Borderline High: 150-199 High: 200-499 Very High: >500 30 Desirable: <200 Borderline High: 200-239 High: >239 31 Low: <40 Desirable: 40-60 High: >60 32 Desirable: <100 Near Optimal: 100-129 Borderline High: 130-159 High: 160-189 Very High: >189 33 Because ethnic data is not always [...] 5 Kidney failure <15 (or dialysis) 34 Desirable: <150 Borderline High: 150-199 High: 200-499 Very High: >500 35 Desirable: <200 Borderline High: 200-239 High: >239 36 Low: <40 Desirable: 40-60 High: >60 37 Desirable: <100 Near Optimal: 100-129 Borderline High: 130-159 High: 160-189 Very High: >189 38 Because ethnic data is not always readily [...] 15-29 5 Kidney failure <15 (or dialysis) 39 Because ethnic data is not always readily [...] 15-29 5 Kidney failure <15 (or dialysis) 40 FASTING Copy to ALTAF Platt, Dr. Malick Loya Copy Result to: EMMANUEL DAVID NP ([id number]) 41 FASTING Copy to ALTAF Platt, Dr. Malick Loya Copy Result to: EMMANUEL DAVID NP ([id number]) 42 Desirable <150 Borderline high 150-199 High 200-499 Very High >500 43 Desirable <200 Borderline high 200-239 High >239 44 Low <40 Desirable: 40-60 High: >60 45 Desirable: <100 mg/dL Near Optimal: 100-129 mg/dL Borderline High: 130-159 mg/dL High: 160-189 mg/dL Very High: >189 mg/dL 46 Because ethnic data is not always readily [...] 15-29 5 Kidney failure <15 (or dialysis) 47 FASTING 48 FASTING 49 Desirable <150 Borderline high 150-199 High 200-499 Very High >500 50 Desirable <200 Borderline high 200-239 High >239 51 Low <40 Desirable: 40-60 High: >60 52 Desirable <100 Near Optimal 100-129 Borderline high 130-159 High 160-189 Very High >189 53 Because ethnic data is not always readily [...] 15-29 5 Kidney failure <15 (or dialysis) 54 Because ethnic data is not always readily [...] 15-29 5 Kidney failure <15 (or dialysis) 55 Because ethnic data is not always [...] 5 Kidney failure <15 (or dialysis) 56 Because ethnic data is not always readily [...] 15-29 5 Kidney failure <15 (or dialysis) 57 Please note the change in the INR reference range effective 13. 58 HDL Interpretation: Undesirable: High Risk: Less than 40 mg/dL Desirable: Low Risk: Greater than 60 mg/dL 59 LDL Interpretation: Low Risk Optimal Level: LDL Less than 100 mg/dL Near or Above Optimal: LDL 100-129 mg/dL Borderline High Risk: LDL 130-159 mg/dL High Risk: LDL 160-189 mg/dL Very High Risk: LDL Greater than 189 mg/dL 60 FASTING 61 FASTING 62 HDL Interpretation: Undesirable: High Risk: Less than 40 MG/DL Desirable: Low Risk: Greater than 60 MG/DL 63 LDL Interpretation: Low Risk Optimal Level: LDL Less than 100 MG/DL Near or Above Optimal: LDL 100-129 MG/DL Borderline High Risk: LDL 130-159 MG/DL High Risk: LDL 160-189 MG/DL Very High Risk: LDL Greater than 189 MG/DL 64 RUN DATE: 07/08/12 [facility] NMI LIVE PAGE 1 RUN TIME: 944 Specimen Inquiry RUN USER: INTERFACE Name: THAD LOAIZA Status: DIS Larry Re07/06/12 Age/Sex: 62/M Unit#: [id number] Location: : 50 SPEC #: [id number] ANTOINE: 07/06/12 STATUS: COMP REQ #: [id number] RECD: 07/06/[address]: Gaye Rogers MD SOURCE: URINE ENTR: 07/06/[address]: Enrico LOPES,Emmanuel Camarena [facility]: ORDERED: URINE C S QUERIES: SPECIMEN DESCRIPTION: URINE, RANDOM ACT WKST: UR 07/08/12 #1 Procedure Result Verified Site > URINE CULTURE SENSITIVI Final 07/08/12- 944 ML FINAL: NO GROWTH DAY 2 (<1,000 CFU/mL) ML - [facility] Permit #[id number] [address] [place] [address] DEPARTMENT OF PATHOLOGY, [address] [place] [address] [facility] Permit #[id number] Brock Lugo M.D. [employer] 65 CHOLESTEROL INTERPRETATION: Desirable: Less than 200 MG/DL Borderline-High Risk: 200-239 MG/DL High-Risk: 240 MG/DL and over 66 HDL INTERPRETATION: Undesirable: High Risk: Less than 40 MG/DL Desirable: Low Risk: Greater than 60 MG/DL 67 LDL INTERPRETATION: Low Risk Optimal Level: LDL Less than 100 MG/DL Near or Above Optimal: LDL 100-129 MG/DL Borderline High Risk: LDL 130-159 MG/DL High Risk: LDL 160-189 MG/DL Very High Risk: LDL Greater than 189 MG/DL 68 CHOLESTEROL INTERPRETATION: Desirable: Less than 200 MG/DL Borderline-High Risk: 200-239 MG/DL High-Risk: 240 MG/DL and over 69 HDL INTERPRETATION: Undesirable: High Risk: Less than 40 MG/DL Desirable: Low Risk: Greater than 60 MG/DL 70 LDL INTERPRETATION: Low Risk Optimal Level: LDL Less than 100 MG/DL Near or Above Optimal: LDL 100-129 MG/DL Borderline High Risk: LDL 130-159 MG/DL High Risk: LDL 160-189 MG/DL Very High Risk: LDL Greater than 189 MG/DL 71 CHOLESTEROL INTERPRETATION: Desirable: Less than 200 MG/DL Borderline-High Risk: 200-239 MG/DL High-Risk: 240 MG/DL and over 72 HDL INTERPRETATION: Undesirable: High Risk: Less than 40 MG/DL Desirable: Low Risk: Greater than 60 MG/DL 73 LDL INTERPRETATION: Low Risk Optimal Level: LDL Less than 100 MG/DL Near or Above Optimal: LDL 100-129 MG/DL Borderline High Risk: LDL 130-159 MG/DL High Risk: LDL 160-189 MG/DL Very High Risk: LDL Greater than 189 MG/DL 74 A metabolite of Naproxen, O-desmethylnaproxen, has been shown to interfere with the Jenmarquesik-Sera method for measuring total bilirubin. Samples from patients who have taken Naproxen have shown spurious elevation in total bilirubin levels. 75 Please note updated reference range, effective 05/12/10 76 A metabolite of Naproxen, O-desmethylnaproxen, has been shown to interfere with the Jendrassik-Teachey method for measuring total bilirubin. Samples from patients who have taken Naproxen have shown spurious elevation in total bilirubin levels. 77 Please note updated reference range, effective 05/12/10 78 CHOLESTEROL INTERPRETATION: Desirable: Less than 200 MG/DL Borderline-High Risk: 200-239 MG/DL High-Risk: 240 MG/DL and over 79 HDL INTERPRETATION: Undesirable: High Risk: Less than 40 MG/DL Desirable: Low Risk: Greater than 60 MG/DL 80 LDL INTERPRETATION: Low Risk Optimal Level: LDL Less than 100 MG/DL Near or Above Optimal: LDL 100-129 MG/DL Borderline High Risk: LDL 130-159 MG/DL High Risk: LDL 160-189 MG/DL Very High Risk: LDL Greater than 189 MG/DL 81 Anion gap measurement may be of limited value in the presence of any alkalosis, especially in a combined acid base disorder. . 82 Because ethnic data is not always readily [...] 15-29 5 Kidney failure <15 (or dialysis) 83 Anion gap measurement may be of limited value in the presence of any alkalosis, especially in a combined acid base disorder. . 84 Because ethnic data is not always readily [...] 15-29 5 Kidney failure <15 (or dialysis) 85 NO MRSA ISOLATED 86 PT TAKES AN ASPRIN 87 Anion gap measurement may be of limited value in the presence of any alkalosis, especially in a combined acid base disorder. . 88 Because ethnic data is not always readily [...] 15-29 5 Kidney failure <15 (or dialysis) 89 Recommended INR for Patients on Oral Anticoagulants Prophylaxis 2.0 - 3.0 Treatment of thrombosis 2.0 - 3.0 Prevention of embolism 2.0 - 3.0 Prevention of embolism from prosthetic heart valves 2.5 - 3.5 90 DIAGNOSIS,TREATMENT,AND THERAPY MUST BE BASED ON THE INR VALUE ALONE. 91 Lymphopenia % 92 SDS 08/06 93 Anion gap measurement may be of limited value in the presence of any alkalosis, especially in a combined acid base disorder. . 94 Note change in reference range as of 06/11/08. The change was based on recommendations from the [employer]. 95 Please note change in reference range effective 08 . Procedures Date CPT Code Description Status 05/22/2018 87657 ECHO Transthorasic Realtime 2D W Doppler & Color Flow Completed Hosp 04/29/2018 83533 Trigger Finger Release Incision / Tendon Sheath Completed Incision 04/29/2018 44801 Trigger Finger Release Incision / Tendon Sheath Completed Incision 04/29/2018 14824 Trigger Finger Release Incision / Tendon Sheath Completed Incision 04/29/2018 47091 Trigger Finger Release Incision / Tendon Sheath Completed Incision 04/12/2018 66687 Inject/Drain Joint/Bursa Major W/O US Completed 03/20/2018 45293 EKG Tracing & Interpretation Completed 02/13/2018 Colonoscopy Completed 02/13/2018 39099 Endoscopy Upper GI Biopsy Completed 02/13/2018 20000 Colonoscopy Flexible Remove Tumor/Polyp/Lesion Snare Completed Technique 02/13/2018 23814 Colonoscopy Flexible W/Biopsy Completed 12/24/2017 95579 EKG Tracing & Interpretation Completed 10/28/2017 89973 ECHO Transthorasic Realtime 2D W Doppler & Color Flow Completed Hosp 10/02/2017 63581 Left Heart Cath. Incl S/I Coronaries, Angio S/I V Gram Completed If Done 09/25/2017 59040 Treadmill Interp/Report Only Completed 09/25/2017 46096 Stress Test Supervsn W/Out I/R Completed 09/18/2017 55528 Injection Single Tendon Origin/Insertion Completed 09/18/2017 44467 Inject Tendon Sheath Or Ligament Aponeurosis Eg Plantar Completed Fascia 09/05/2017 32066 EKG Tracing & Interpretation Completed 08/14/2017 72011 Inject Tendon Sheath Or Ligament Aponeurosis Eg Plantar Completed Fascia 08/14/2017 86901 Inject Tendon Sheath Or Ligament Aponeurosis Eg Plantar Completed Fascia 09/26/2016 36062 Nerve Conduction 03-04 Studies Completed 09/04/2016 79837 EKG Tracing & Interpretation Completed 06/22/2016 99993 Stress Test Supervsn W/Out I/R Completed 06/22/2016 89743 EKG, Interpretation Only Completed 06/22/2016 96991 Treadmill Interp/Report Only Completed 05/15/2016 43894 ECHO Transthorasic Realtime 2D W Doppler & Color Flow Completed Hosp 07/14/2015 89515 EKG Tracing & Interpretation Completed 03/19/2015 32781 Inject/Drain Joint/Bursa Major W/O US Completed 12/25/2014 23760 Inject/Drain Joint/Bursa Small W/O US Completed 10/28/2014 85191 EKG Tracing & Interpretation Completed 10/27/2014 97994 Inject/Drain Joint/Bursa Major W/O US Completed 09/23/2014 96730 Rad Shoulder Comp, Min. 2 Views Completed 11/21/2013 33585 Left Heart Cath. Incl S/I Coronaries, Angio S/I V Gram Completed If Done 11/13/2013 60537 Treadmill Interp/Report Only Completed 11/13/2013 78512 Stress Test Supervsn W/Out I/R Completed 11/04/2013 20287 EKG Tracing & Interpretation Completed 09/24/2013 64308 ECHO Transthorasic Realtime 2D W Doppler & Color Flow Completed Hosp 09/24/2013 58495 EKG, Interpretation Only Completed 09/23/2013 53191 Left Heart Cath. Incl S/I Coronaries, Angio S/I V Gram Completed If Done 09/23/2013 53444 Cath PLMT&NJX L Ventriculog Img S&I Completed 09/23/2013 41521 EKG, Interpretation Only Completed 09/23/2013 98092 Ptca W/Intracor Stent Completed 09/23/2013 65577 Percutaneous Transcatheter Placement Of Intracoronary Completed Stent 09/23/2013 62942 IV Rx Trancath Therapy(Nitro/Arcenio) Completed 05/23/201220145 Inject/Drain Joint/Bursa Major W/O US Completed 03/05/2012 29562 Treadmill Interp/Report Only Completed 03/05/2012 90845 Stress Test Supervsn W/Out I/R Completed 02/26/2012 17053 EKG Tracing & Interpretation Completed 09/27/2011 37703 EKG Tracing & Interpretation Completed 09/21/2011 25369 Rad Shoulder Comp, Min. 2 Views Completed 09/21/201124203 Inject/Drain Joint/Bursa Intermediate W/O US Completed 02/16/2011 91049 EKG Tracing & Interpretation Completed 02/04/2011 93675 EKG, Interpretation Only Completed 02/02/2011 29348 Left Heart Cath. Incl S/I Coronaries, Angio S/I V Gram Completed If Done 02/02/2011 65758 Color Flow Doppler/Interp & Reprt Completed 02/02/2011 62009 Pulse Wave/Continuous-Interp.RPT Completed 02/02/2011 56958 ECHO Transthorasic Realtime 2D W Doppler & Color Flow Completed Hosp 02/02/2011 98420 EKG, Interpretation Only Completed 02/02/2011 99429 Ptca W/Intracor Stent Completed 01/30/2011 13018 EKG Tracing & Interpretation Completed 08/06/2008 87242 Endoscopy Wrist Surg W/Release Of Transverse Carpal Completed Ligament 08/06/2008 43148 Endoscopy Wrist Surg W/Release Of Transverse Carpal Completed Ligament 06/23/2005 71734 ECHO/Stress Completed 06/23/2005 15666 Stress Test Completed 06/22/2005 88069 EKG Tracing & Interpretation Completed Encounters Type Date Location Provider CPT E/M Dx Office Visit 06/04/2018 [facility] Jude Ramos M.D. 87020 G46.5 8:00a Services Of Matthew E11.9 I63.9 Office Visit 05/23/2018 3:18p [facility],[place] [address] I63.9 Hospitalists I25.10 E11.9 I10 G47.33 Office Visit 05/22/2018 7:00a [facility] Merlin Araujo, 95231 I63.8 Brock G46.5 Office Visit 05/22/2018 3:17p [facility], Ximena Amin, 10436 I63.9 Hospitalists D.OPaul I25.10 E11.8 I10 F41.8 E78.5 K21.9 E03.9 Office Visit 05/21/2018 7:00a [facility] Merlin Araujo, 50873 I63.9 Brock N18.9 Office Visit 05/21/2018 3:17p [facility],[place] [address] I63.9 Hospitalists Z86.79 I10 I50.9 G47.33 N18.9 E11.9 K21.9 Office Visit 04/26/2018 10:15a [facility] Jude Ramos, 01893 R26.81 Services Of Matthew Gutiérrez G62.9 R29.6 Office Visit 04/12/2018 9:45a [facility] [place] [address] M65.311 C.M.A. 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 AT [facility] [place] Brock, [facility] [place] Office Visit 02/22/2018 10:00a [facility] Ramos, 46728 G62.9 Services Of [facility] Brock R26.81 R29.6 R53.82 Office Visit 02/01/2018 10:23a [facility], Jericho Schwarz, 41109 J96.11 Hospitalists Brock J18.1 G47.33 E08.9 Office Visit 01/31/2018 10:23a [facility], Jericho Schwarz, 81975 J96.11 Hospitalists Brock J18.1 G47.33 E08.9 Office Visit 01/30/2018 10:22a [facility], Jericho Schwarz, 21271 J96.11 Hospitalists Brock J18.1 G47.33 E08.9 Office Visit 01/09/2018 9:40a [facility] Of Jimmie Malone M.D., 13654 I20.9 Toolroom Keeper AT [facility], [facility] I10 Z01.810 Office Visit 12/24/2017 9:40a [facility] Of Jimmie Malone M.D., 08958 I20.9 Toolroom Keeper AT [facility], [facility] I10 E78.5 Office Visit 10/29/2017 12:47p [facility], Harsha Huynh, 94552 N28.0 Hospitalists N.P. I25.10 E11.8 I10 Office Visit 10/28/2017 12:46p [facility], Harshajered Huynh, 43992 N28.0 Hospitalists N.P. E11.8 I25.10 I10 Office Visit 10/27/2017 12:45p [facility], Harsha Huynh, 54466 N28.0 Hospitalists N.P. E11.8 I25.10 I10 Office Visit 10/26/2017 12:44p [facility], Harsha Huynh, 58928 N28.0 Hospitalists N.P. 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311 C.M.A. M65.351 M77.12 Office Visit 09/05/2017 10:40a [facility] Of Jimmie Malone M.D., 17861 E78.5 Toolroom Keeper AT [facility], [facility] [place] I10 I25.10 R10.13 Office Visit 08/14/2017 1:15p [facility] [place] [address] M65.311 C.M.A. M65.321 M65.351 G56.01 Office Visit 01/09/2017 11:45a [facility] Andreia Finn, 05006 R47.1 Services Of Matthew Gutiérrez R29.810 Office Visit 12/14/2016 9:45a [facility] Andreia Mckeon 83447 R29.810 Services Of Matthew Finn M.D. Office Visit 12/11/2016 3:30p [facility] Augusto Brian, 03247 R29.810 Brock R47.1 Office Visit 09/04/2016 9:40a [facility] Of Jimmie Malone M.D., 09297 I25.10 Toolroom Keeper AT [facility], [facility] I10 E78.5 Office Visit 08/10/2016 3:00p [facility] Andreia Finn, 20454 G25.0 Services Of Matthew Gutiérrez R20.0 Office Visit 06/22/2016 12:19p [facility] Roxana Malone M.D., 39200 R07.9 [facility] AT [facility], [facility] I25.10 Office Visit 06/21/2016 12:18p [facility] Of Jimmie Malone M.D., 73198 R07.9 [facility] AT [facility], [facility] [place] I25.10 Office Visit 12/02/2015 9:00a [facility] Andreia Finn, 25866 R51 Services Of Matthew Gutiérrez G25.0 I67.9 Office Visit 07/14/2015 4:00p [facility] Of [facility] Jimmie Malone M.D., 84425 I10 AT [facility], [facility] I25.9 E78.5 Office Visit 04/21/2015 10:30a [facility] [place] 91406 333.1 Rivka Veras M.D. Office Visit 03/26/2015 10:30a [facility] Andreia Finn, 21749 784.0 MJaja 333.1 Office Visit 12/25/2014 9:45a [facility] Norberto Roy, 67180 719.41 CLilly Gutiérrez 729.5 715.34 Office Visit 10/28/2014 2:40p [facility] Jimmie Malone M.D., 93951 401.1 [facility] AT [facility] [place] 414.9 272.4 Office Visit 10/27/2014 3:30p [facility], 74330 719.41 Rivka Gutiérrez 726.2 Office Visit 09/23/2014 9:00a [facility] 66660 719.41 CLilly Gutiérrez Office Visit 08/27/2014 12:30p [facility] Finn, 99499 784.0 Services Of Matthew Gutiérrez 333.1 437.9 Office Visit 05/19/2014 3:15p [facility] Finn, 77207 784.0 Services Of Matthew Gutiérrez 333.1 Office Visit 01/02/2014 2:30p [facility] Jimmie Malone M.D., 97630 414.9 [employer] AT [facility], [facility] 401.1 272.4 Office Visit 11/28/2013 3:00p [facility] Jim[facility] Malone M.D., 37156 401.1 [employer] AT [facility], [facility] 272.4 414.9 Office Visit 11/04/2013 2:00p [facility] AT Jacqueline Forest, 59657 786.50 [facility] [place] D.OPaul 414.01 401.1 250.00 530.81 272.4 Office Visit 10/27/2013 11:00a [facility] Jacqueline Garg D.O. 80912 414.01 401.1 250.00 530.81 272.4 Office Visit 09/27/2013 4:00p [facility], Oliverio Scott M.D. 69280 786.50 Hospital[facility] 414.01 530.81 401.9 Office Visit 09/26/2013 3:59p [facility], Oliverio Scott M.D. 75010 786.50 Hospital[facility] 414.01 530.81 401.9 Office Visit 09/26/2013 10:37a [facility] Jacqueline Garg D.O. 31909 786.50 414.01 250.00 401.1 Office Visit 09/24/2013 3:13p [facility] Jacqueline Garg D.O. 51127 411.1 414.01 401.1 250.00 Office Visit 09/23/2013 9:30a [facility] Jacqueline Garg D.O. 40796 411.1 414.01 401.1 250.00 Office Visit 09/15/2013 1:20p [facility] Jacqueline Garg D.O. 80569 413.0 414.01 401.1 272.4 250.90 Office Visit 04/17/2013 2:40p [facility] Jac[place]eline [place] 55734 414.01 [facility] [place] D.OPaul 401.1 272.4 250.90 278.00 Office Visit 10/30/2012 2:20p [facility] Jacqueline Garg D.O. 85407 414.01 401.1 272.4 250.90 278.00 Office Visit 07/26/2012 8:30a [facility] Finn, 63922 784.0 Services Of Matthew Gutiérrez 354.0 Office Visit 07/07/2012 9:45a [facility],[place] [address] 530.81 Hospitalists 414.02 250.90 Office Visit 07/06/2012 9:45a [facility] [address] 786.51 Hospitalists 414.02 530.81 250.90 Office Visit 06/04/2012 2:30p [facility] AT [facility], 18906 414.01 [facility] [place] N.P. 272.4 401.1 Office Visit 05/23/2012 10:15a [facility] M.D. 25764 726.2 C.M.APaul 715.11 Office Visit 02/26/2012 11:00a [facility] Jacqueline Garg D.O. 10589 786.50 414.01 401.1 272.4 250.00 Office Visit 10/18/2011 8:45a [facility], 76578 716.91 C.M.A. MJaja 726.2 Office Visit 09/27/2011 10:20a [facility] Jacqueline Garg D.O. 09543 414.01 401.1 272.4 250.00 278.00 Office Visit 09/21/2011 2:15p [facility], 19306 716.91 C.M.A. MJaja 726.2 Office Visit 05/01/2011 2:20p [facility] Jacqueline Garg D.O. 67039 414.01 401.1 272.4 250.00 278.00 Office Visit 02/16/2011 8:30a [facility] Jacqueline Garg D.O. 73832 414.01 250.62 401.1 272.4 Office Visit 02/05/2011 8:49a [facility] Stacia Rico, 58364 794.31 Brock 414.01 401.1 786.50 V45.82 Office Visit 02/03/2011 8:44a [facility] Jacqueline Garg D.O. 34878 414.01 V45.82 786.50 Office Visit 02/02/2011 9:30a [facility] Jacqueline Garg D.O. 47386 414.01 v45.82 786.50 Office Visit 01/30/2011 10:20a [facility] Jacqueline Garg D.O. 22057 411.1 250.00 401.1 278.01 Office Visit 07/28/2008 1:00p [facility] Russ Rogers, 57756 354.0 [facility] Brock Office Visit 05/25/2008 3:30p [facility] Russ Rogers, 21326 354.0 Of Matthew Gutiérrez Office Visit 06/22/2005 3:20p [facility] Terrence Zambrano 97729 786.50 Brock Ruiz 401.1 272.0 278.01 Plan of Care Future Appointment(s):09/09/2018 9:00 am - Jude Ramos M.D. at [facility]10/31/2018 10:30 am - Jude Ramos M.D. at [facility]06/04/2018 - Jude Ramos M.D.G46.5 Pure motor lacunar syndromeFollow up:Follow up in 3 monthsRecommendations:Stop Aspirin on June 23, 2018 Go to ER with any stroke like [id number] Type 2 diabetes mellitus without [id number] Cerebral infarction, unspecified
--- OUTSIDE RECORDS SUMMARY | 2018-06-17 16:17 | XMS REPORT ---
:1950 External Reference #:[id number] Author Organization [facility] Address [address] [address] [place] [address] Phone [phone] Care Team Providers Name Role Phone Emmanuel David NP Primary Care Physician Unavailable Payers Type Date Identification Numbers Payment Provider Subscriber Commercial Effective: Policy Number: [id number] BS Facets Charo Josse 2012 PayID: [id number] [address] [address] [place] [address] Medigap Part B Effective: 2009 Policy Number: BS Of CNLeonor Mancilla Josse [id number] Expires: 2012 PayID: [id number] [address] [address] [place] [id number] Problems Date Description Provider Status Onset: 09/27/2011 Coronary arteriosclerosis Jacqueline Garg D.O. Active Onset: 02/26/2012 Chest pain Jacqueline Garg D.O. Active Onset: 06/04/2012 Hyperlipidemia Brianda Butcher NRoyal Active Onset: 06/04/2012 Benign essential hypertension Brianda Butcher, N.PPaul Active Onset: 10/30/2012 Coronary arteriosclerosis Jacqueline Garg D.O. Active Onset: 09/15/2013 Angina decubitus Jacqueline Garg D.O. Active Onset: 11/28/2013 Essential hypertension Jimmie Malone M.D., [facility], Active [facility] Onset: 11/28/2013 Chronic ischemic heart disease Jimmie Malone M.D., [facility], Active [facility] Onset: 11/28/2013 Radiation injury Jimmie Malone M.D., [facility], Active [facility] Onset: 03/26/2015 Tremor Andreia Finn M.D. Active Onset: 03/26/2015 Headache Andreia Finn M.D. Active Onset: 07/14/2015 Essential hypertension Jimmie Malone M.D., [facility], Active [facility] Onset: 07/14/2015 Chronic ischemic heart disease, Jimmie Malone M.D., [facility], Active unspecified [facility] Onset: 08/10/2016 Carpal tunnel syndrome of right Andreia Finn M.D. Active wrist Onset: 12/14/2016 Facial palsy Andreia Finn M.D. Active Onset: 08/14/2017 Snapping thumb syndrome Jericho Herr MD Active Onset: 08/14/2017 Acquired trigger finger Jericho Herr MD Active Onset: 09/05/2017 Angina pectoris Jimmie Malone M.D., [facility], Active [facility] Onset: 09/18/2017 Lateral epicondylitis Jericho Herr MD Active Onset: 10/08/2017 Athscl heart disease of marshall Jimmie Malone M.D., [facility], Active cor art w ot ang pctrs [facility] Onset: 01/09/2018 Preoperative cardiovascular Jimmie Malone M.D., [facility], Active examination [facility] Onset: 02/22/2018 Polyneuropathy Jude Ramos M.D. Active Onset: 02/22/2018 Abnormal gait Jude Ramos M.D. Active Onset: 02/22/2018 Nervous system symptoms Jude Ramos M.D. Active Onset: 02/22/2018 Chronic fatigue syndrome Jude Ramos M.D. 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 ETOH Use Rarely consumes alcohol [...] Form Strength Qnty SIG Indications Ordering Provider Tramadol HCL 04/29 Active Tablets 50mg 30tab 1-2 s tablets by MD Carmenza mouth every 6 hours as needed pain Metoprolol 03/20 Active Tablets ER 100mg 60tab 100mg in Jimmie Succinate 24HR s the am, Stefek, 50mg at M.D., night [facility] Amlodipine 09/05 Active Tablets 5mg 30tab 1 by I10 Jimmie Besylate s mouth Stefek, every day Brock, [facility], [facility] Isosorbide 10/28 Active Tablets ER 120mg 90tab 1 by mouth Jimmie Mononitrate ER 24HR s every day Brock Malone, [facility], [facility] Azmacort 04/17 Active Aerosol 75mcg/Act 3Mon 1 puff bid prn Ordering Provider Proair HFA 04/17 Active Aerosol 108(90Bas 1unit 2 puffs po e) s q4h prn Ordering mcg/Act Provider Oxygen Active 2Liters/M qhs Unknown /0000 in Triamcinolone Active Ointment 0.05% 15gm apply to Unknown Acetonide In affected Absorbase area sparingly daily Lantus Active Solution 100Unit/M 50 units Unknown /0000 L qam Oxycodone HCL Active Tablets 10mg half Unknown tablet to one tablet as needed for pain Spiriva Active Capsules 18mcg 1 unit Unknown Handihaler /0000 inhalation daily Gabapentin Active Capsules 300mg 1 am 1 Unknown /0000 noon 1 evening 1 hs Omeprazole Active Capsules 40mg Twice A Unknown /0000 DR Day Aspir-[address] 81mg 1 by mouth Unknown /0000 every day Vitamin D High Active Capsules 2000Units 2 by mouth Unknown Potency /0000 every day Alprazolam Active Tablets 0.5mg half tab Unknown /0000 to one tablet twice a day as needed Nitroglycerin Active Tablets 0.4mg 30tab 1 sl Sub s q5mins x3 Stefek, as needed M.D., for chest FACC, pain [facility] Novolog Mix 70/30 Active Supn (70-30)10 20 units Unknown Prefilled Flexpen / 0Unit/ML prior to breakfast, 45 units prior to lunch, 30 units prior to dinner. Levothyroxine Active Tablets 25mcg 1 by mouth Unknown Sodium / every day Furosemide Active Tablets 20mg 1 by mouth Unknown / every day Foradil Aerolizer Active Capsules 12mcg inhale one Unknown /0000 capsule twice a day Ventolin HFA Active Aerosol 108(90Bas inhale one Unknown /0000 e) puff every mcg/Act 4 to 6 hours as needed Asmanex HFA Active Aerosol one puff Unknown /0000 once a day Lasix Active Tablets 40mg 1 by mouth Unknown /0000 every day Atorvastatin Active Tablets 20mg take 1 Unknown Calcium / tablet at bedtime Ondansetron Active Tablets 4mg one tablet Unknown /0000 Dispers three times a day as needed Lidocaine Active Patch 5% appy to as Unknown /[address] Atorvastatin 11/26 Hx Tablets 80mg 1 by mouth Jimmie every day Faisal - M.DPaul, 04/24 FAC [facility] Atorvastatin 09/12 Hx Tablets 20mg 90tab take 1 Jimmie Calcium s tablet at [facility], - bedtime M.D., 11/26 FAC [facility] Humalog Kwikpen 12/14 Hx Solution 100Unit/M 15ml sliding Andreia MPaul Pen-Inject L scale Antoine Finn M.D. 10/18 Acyclovir 12/14 Hx Tablets 400mg 30tab take 1 . s tablet by Huma, - mouth M.D. 12/19 twice a day prn Valium 12/14 Hx Tablets 5mg 2tabs 1 - 2 tab PO prior Huma, - to MRI M.D. 07/25 Metoprolol 07/14 Hx Tablets ER 50mg 180ta 1.5 Jimmie Succinate 24HR bs tablets by Faisal, - mouth in M.D., 03/20 in the [facility], morning 1 [facility] pill in at night Clopidogrel 10/27 Hx Tablets 75mg 90tab 1 po qd Jimmie Callejas s Antoine Malone M.D., 03/22 [facility] Glen 09/23 Hx Tablets 5-325mg 20tab 1-2 by Norberto s mouth qhs Manuela, - as needed M.D. 07/13 Nortriptyline HCL 05/21 Hx Capsules 10mg 120ca 3 po qhs Andreia Paul ps Antoine Finn M.D. 03/22 Valium 05/19 Hx Tablets 5mg 2tabs 1 - 2 tabs 333.1 by mouth Manuela, - prior to M.D. 03/22 Imdur 01/02 Hx Tablets ER 60mg 150ta 1 1/2 po Jimmie 24HR bs qd Antoine Malone M.D., 10/28 [facility] Diltiazem HCL ER 11/28 Hx Caps ER 120mg 180ca 1 cap by Jimmie 24HR ps mouth Faisal, - twice a M.D., 08/14 day [facility] Imdur 11/24 Hx Tablets ER 60mg 30tab 1 po qd Jimmie 24HR s Antoine Malone M.D., 01/02 [facility] Imdur 11/13 Hx Tablets ER 30mg 30tab 1 po qd Jacqueline /2014 24HR s Antoine Garg D.O. 11/24 Diltiazem CD 10/27 Hx Caps ER 120mg 30cap 1 po qd 24HR s Ordering - Provider 11/28 Aspirin 09/23 Hx Tablets 81mg 100ta 1 po qd bs Forest - D.OPaul 07/25 Plavix 09/23 Hx Tablets 75mg 30tab 1 po qd s Forest - Josiah.O. 10/27 Omeprazole 09/15 Hx Capsules 20mg 90cap [address] georges Ordering - Provider 11/04 Ranitidine HCL 09/15 Hx Capsules 150mg 60cap 1 po bid s Ordering - Provider 10/27 Imdur 09/15 Hx Tablets ER 60mg 30tab 1 po daily 24HR s Antoine Garg D.O. 11/04 Metoprolol 03/06 Hx Tablets ER 50mg 45tab take one Jimmie Succinate ER 24HR s tablet by Antoine Malone M.D., 07/14 every [facility] morning [facility] Atorvastatin 02/25 Hx Tablets 40mg 30tab take one Jimmie Calcium s tablet by Antoine Malone M.D., 09/03 every day [facility] Toprol XL 02/23 Hx Tablets ER 50mg 30tab 1 po qd 24HR s Antoine Garg.O. 09/15 Metoprolol 02/16 Hx Tablets 50mg 60tab 1 po qd s Antoine Garg.O. 02/23 Simvastatin 02/16 Hx Tablets 40mg 30tab Take One s Tablet By Forest - Mouth D.O. 02/25 Evening Plavix 02/16 Hx Tablets 75mg 30tab Take One s Tablet By Forest - Mouth D.O. 04/17 Nitrostat 02/16 Hx Tablets 0.4mg 25tab place 1 Sub s tablet Antoine Malone the MJaja, 09/25 tongue [facility] every 5 [facility] minutes up to 3 doses as needed [...] Unknown /0000 s - 09/15 Amitriptyline HCL 00 Hx Tablets 10mg 30tab 1/2 po qd Unknown /0000 s - 09/27 Multiple Vitamins 00/00 Hx Tablets 1 po qd Unknown /0000 - 03/19 Protonix / Hx Tablets DR 40mg 100ta 1 po qd Unknown /0000 bs - 04/17 Novolog Penfill Hx Solution 100Unit/M 10-20 Unknown /0000 L units - before 09/03 (depending on sugar), 45 units @ noon, and 30 units before supper daily. Fish Oil 00/00 Hx 1 qd Unknown / - 11/04 Zantac 00/00 Hx Capsules 150mg 1 po qd Unknown / - 09/15 Protonix /[address] 40mg 30tab 1 po qd Unknown / s - 09/25 Calcitriol /00 Hx Capsules 0.25mcg 90cap 1 po qd Unknown /0000 s - 09/03 Vitamin D 400 00/ Hx qd Unknown / - 03/22 Topiramate 00/ Hx Tablets 25mg 120ta 1 tab po q Unknown /0000 bs evening - 10/27 Iron 00/00 Hx Tablets 325(65Fe) 1 by mouth Unknown /0000 mg every day - 12/19 Hydrochlorothiazi / Hx Tablets 25mg 1 by mouth Unknown de /0000 every day - 01/02 Morphine Sulfate / Hx Caps ER 30mg 1 by mouth [...] 00/00 Hx Unknown /0000 - 09/25 Lasix 00 Hx Tablets 20mg 1 by mouth Unknown /0000 every day - 09/03 Colace 00/ Hx Capsules 100mg 2 po daily Unknown /0000 prn - 07/25 Humalog 00/00 Hx Solution 100Unit/M as Unknown /0000 Cartridge L directed - 09/25 Losartan 0000 Hx Tablets 50mg 1 by mouth Unknown Potassium /0000 every day - 07/23 Revlimid 00/00 Hx Capsules 10mg on for 21 Unknown /0000 days then - off for 7 Novolog Mix 70/30 00/00 Hx Supn (70-30)10 as Unknown Prefilled Flexpen /0000 0Unit/ML directed` - 12/14 Nitroglycerin 00 Hx Tablets 0.4mg 1 spray Unknown /0000 Sub with chest - pain,march 02 every 5 mts x max 3 times. if chestpain continues go to er Diltiazem CD 00 Hx Caps ER 120mg 1 by mouth Unknown /0000 24HR every day - 09/25 Nystatin Hx Powder 10Bu Unknown / - 04/24 Medications Administered in Office Medication Date Status Form Strength Qnty SIG Indications Ordering Provider Celestone 3 mg Administered Injection Jericho and 3mg 018 MD Carmenza Celestone 3 mg Administered Injection Jericho and 3mg 017 MD Carmenza Celestone 3 mg Administered Injection Jerciho and 3mg 017 MD Elina Herrestone 3 [...] Roy Vital Signs Date Vital Result Comment 05/10/2018 Height 65 inches 5'5" Heart Rate [...] Non- 24.4 >60 Egfr 31.4 >60 12 Boardman/Lambda Free Light Chains 02/22/2018 [place] Free Light Chain 4.13 mg/dL 13 Ser Lambda Free Light Chain 7.53 mg/dL 14 [place]/Lambda Free Light Chain 0.5485 15 Immunoglobulins Serum [...] 35 U/L 17-63 Ast (Sgot) 29 U/L - Lipid Profile [...] 34 U/L 17-63 Ast (Sgot) 25 U/L - Lipid Profile (Trig/Chol/HDL) 03/13/2011 Triglyceride 151 mg/dL [...] 92 Abs Basophils 0 0-0.2 92 1 Edge Trimmer: [id number] 2 Edge Trimmer: [id number] 3 No evidence of antibodies to B. burgdorferi detected. False negative results may occur in recently infected patients (<=2 weeks) due to low or undetectable antibody levels to B. burgdorferi. If recent exposure is suspected, a second sample should be collected and tested in 2-4 weeks. Test Performed by: [facility] [address] [place] [address] 4 Normal Range 180 to 914 Indeterminate Range 145 to 180 Deficient Range <145 5 REFERENCE VALUE <=1.0 (Negative) 6 REFERENCE VALUE <20.0 (Negative) 7 Tests for antibodies to dsDNA and CHRISTINE antigens are not performed automatically unless the JOSH result is > or= 3.0 U. Studies performed at [facility] indicate that positive JOSH results <3.0 U are rarely accompanied by positive second order tests. Test Performed by: [facility] - [address] [address] 8 Serum levels of PSA measured using the Loomio DXI Hybritech immunoassay should not be interpreted as absolute evidence of the presence or absence of disease. The PSA value should be used in conjunction with other pertinent clinical diagnostic procedures. The values obtained with different assay methods or kits cannot be used interchangeably. 9 M-spike in gamma fraction. Size of monoclonal protein not changed significantly since 11/13/2017. Test Performed by: [facility] - [address] [address] 10 REFERENCE VALUE <0.4 (Negative) 11 REFERENCE VALUE <0.4 (Negative) Test Performed by: [facility] - [address] [address] 12 Because ethnic data is not always [...] 15 REFERENCE VALUE 0.2600-1.65 Test Performed by: [facility] [address] [address] 16 Test Performed by: [facility] - [address] [address] 17 Because ethnic data is not always [...] 5 Kidney failure <15 (or dialysis) 26 Edge Trimmer: [id number] 27 Please note the change in INR [...] Platt, Dr. Malick Loya Copy Result to: MUNIRA DAVIDNTI SPACE BUYER ([id number]) 41 FASTING Copy to ALTAF Platt, Dr. Malick Loya Copy Result to: JOANN EMMANUEL LOPES ([id number]) 42 Desirable <150 Borderline high 150-199 High [...] than 189 MG/DL 64 RUN DATE: 07/08/12 [facility] NMI LIVE PAGE 1 RUN TIME: 944 Specimen Inquiry RUN USER: INTERFACE Name: THAD LOAIZA Status: DIS Larry Re07/06/12 Age/Sex: 62/M Unit#: [id number] Location: : 50 SPEC #: [id number] ANTOINE: 07/06/12 STATUS: COMP REQ #: [id number] RECD: 07/06/[address] [facility] [address]: Sue SCOTT,Gaye Cobb SOURCE: URINE ENTR: 07/06/12 [facility] DR: Joann LOPES,Emmanuel Camarena SPDESC: ORDERED: URINE C S QUERIES: SPECIMEN DESCRIPTION: URINE, RANDOM ACT WKST: UR 07/08/12 #1 Procedure Result Verified Site > URINE CULTURE SENSITIVI Final 07/08/12- 0945 ML FINAL: NO GROWTH DAY 2 (<1,000 CFU/mL) - [facility] Permit #[id number] [facility] [email or web address] [place] [address] DEPARTMENT OF PATHOLOGY, [address] [place] [address] [facility] Permit #[id number] Lorenzo Lowry M.D. Director Camille Buenrostro M.D. [place] 65 CHOLESTEROL INTERPRETATION: Desirable: Less than 200 [...] has been shown to interfere with the Jendrassik-Murdo method for measuring total bilirubin. Samples from patients who have taken Naproxen have shown spurious elevation in total bilirubin levels. 75 Please note updated reference range, effective 05/12/10 76 A metabolite of Naproxen, O-desmethylnaproxen, has been shown to interfere with the Jendrassik-Murdo method for measuring total bilirubin. Samples from [...] change was based on recommendations from the [place] [employer]. 95 Please note change in reference range effective 08 . Procedures Date CPT Code Description Status 04/29/2018 22865 Trigger Finger Release Incision / Tendon Sheath Completed Incision 04/29/2018 19690 Trigger Finger Release Incision / Tendon Sheath Completed Incision 04/29/2018 78965 Trigger Finger Release Incision / Tendon Sheath Completed Incision 04/29/2018 53757 Trigger Finger Release Incision / Tendon Sheath Completed Incision 04/12/2018 55417 Inject/Drain Joint/Bursa Major W/O US Completed 03/20/2018 25230 EKG Tracing & Interpretation Completed 02/13/2018 Colonoscopy Completed 02/13/2018 56116 Endoscopy Upper GI Biopsy Completed 02/13/2018 75681 Colonoscopy Flexible Remove Tumor/Polyp/Lesion Snare Completed Technique 02/13/2018 81120 Colonoscopy Flexible W/Biopsy Completed 12/24/2017 72305 EKG Tracing & Interpretation Completed 10/28/2017 68654 ECHO Transthorasic Realtime 2D W Doppler & Color Flow Completed Hosp 10/02/2017 35176 Left Heart Cath. Incl S/I Coronaries, Angio S/I V Gram Completed If Done 09/25/2017 84559 Treadmill Interp/Report Only Completed 09/25/2017 63633 Stress Test Supervsn W/Out I/R Completed 09/18/201768860 Injection Single Tendon Origin/Insertion Completed 09/18/201753885 Inject Tendon Sheath Or Ligament Aponeurosis Eg Plantar Completed Fascia 09/05/2017 62276 EKG Tracing & Interpretation Completed 08/14/201758292 Inject Tendon Sheath Or Ligament Aponeurosis Eg Plantar Completed Fascia 08/14/201734492 Inject Tendon Sheath Or Ligament Aponeurosis Eg Plantar Completed Fascia 09/26/2016 86992 Nerve Conduction 03-04 Studies Completed 09/04/2016 24800 EKG Tracing & Interpretation Completed 06/22/2016 32698 Stress Test Supervsn W/Out I/R Completed 06/22/2016 13826 EKG, Interpretation Only Completed 06/22/2016 65256 Treadmill Interp/Report Only Completed 05/15/2016 43108 ECHO Transthorasic Realtime 2D W Doppler & Color Flow Completed Hosp 07/14/2015 54131 EKG Tracing & Interpretation Completed 03/19/2015 10624 Inject/Drain Joint/Bursa Major W/O US Completed 12/25/2014 05789 Inject/Drain Joint/Bursa Small W/O US Completed 10/28/2014 18490 EKG Tracing & Interpretation Completed 10/27/2014 47355 Inject/Drain Joint/Bursa Major W/O US Completed 09/23/2014 91716 Rad Shoulder Comp, Min. 2 Views Completed 11/21/2013 58254 Left Heart Cath. Incl S/I Coronaries, Angio S/I V Gram Completed If Done 11/13/2013 69487 Treadmill Interp/Report Only Completed 11/13/2013 76431 Stress Test Supervsn W/Out I/R Completed 11/04/2013 23397 EKG Tracing & Interpretation Completed 09/24/2013 82169 ECHO Transthorasic Realtime 2D W Doppler & Color Flow Completed Hosp 09/24/2013 43325 EKG, Interpretation Only Completed 09/23/2013 66990 Left Heart Cath. Incl S/I Coronaries, Angio S/I V Gram Completed If Done 09/23/2013 53197 Cath PLMT&NJX L Ventriculog Img S&I Completed 09/23/2013 41687 EKG, Interpretation Only Completed 09/23/2013 28469 Ptca W/Intracor Stent Completed 09/23/2013 13710 Percutaneous Transcatheter Placement Of Intracoronary Completed Stent 09/23/2013 93478 IV Rx Trancath Therapy(Nitro/Arcenio) Completed 05/23/2012 Inject/Drain Joint/Bursa Major W/O US Completed 03/05/2012 01520 Treadmill Interp/Report Only Completed 03/05/2012 74723 Stress Test Supervsn W/Out I/R Completed 02/26/2012 58507 EKG Tracing & Interpretation Completed 09/27/2011 69400 EKG Tracing & Interpretation Completed 09/21/2011 95755 Rad Shoulder Comp, Min. 2 Views Completed 09/21/2011 Inject/Drain Joint/Bursa Intermediate W/O US Completed 02/16/2011 50506 EKG Tracing & Interpretation Completed 02/04/2011 85374 EKG, Interpretation Only Completed 02/02/2011 74858 Left Heart Cath. Incl S/I Coronaries, Angio S/I V Gram Completed If Done 02/02/2011 17289 Color Flow Doppler/Interp & Reprt Completed 02/02/2011 98469 Pulse Wave/Continuous-Interp.RPT Completed 02/02/2011 13058 ECHO Transthorasic Realtime 2D W Doppler & Color Flow Completed Hosp 02/02/2011 02962 EKG, Interpretation Only Completed 02/02/2011 85586 Ptca W/Intracor Stent Completed 01/30/2011 64395 EKG Tracing & Interpretation Completed 08/06/2008 55689 Endoscopy Wrist Surg W/Release Of Transverse Carpal Completed Ligament 08/06/2008 94416 Endoscopy Wrist Surg W/Release Of Transverse Carpal Completed Ligament 06/23/2005 92777 ECHO/Stress Completed 06/23/2005 13671 Stress Test Completed 06/22/2005 43288 EKG Tracing & Interpretation Completed Encounters Type Date Location Provider CPT E/M Dx Office Visit 04/26/2018 [facility] Jude Ramos, 67365 R26.81 10:15a Services Of Matthew Gutiérrez G62.9 R29.6 Office Visit 04/12/2018 9:45a [facility] [place] [address] M65.311 C.M.A. M65.351 M75.32 M77.12 Office Visit 04/08/2018 1:00p [facility] [place] [address] I10 Accounts Payable Administrator AT [facility] Office Visit 03/20/2018 3:40p [facility] Jimmie Malone, 74162 I25.119 Accounts Payable Administrator AT [facility] Brock, [facility], [facility] I10 Office Visit 02/22/2018 10:00a [facility] Jude Ramos, 31803 G62.9 Services Of Accounts Payable Administrator Brock R26.81 R29.6 R53.82 Office Visit 02/01/2018 10:23a [facility], Jericho Schwarz, 82807 J96.11 Hospitalists Brock J18.1 G47.33 E08.9 Office Visit 01/31/2018 10:23a [facility], Jericho Schwarz, 76623 J96.11 Hospitalists Brock J18.1 G47.33 E08.9 Office Visit 01/30/2018 10:22a [facility], Jericho Schwarz, 68348 J96.11 Hospitalists Brock J18.1 G47.33 E08.9 Office Visit 01/09/2018 9:40a [facility] Of Jimmie Malone M.D., 17312 I20.9 Accounts Payable Administrator AT [facility], [facility] I10 Z01.810 Office Visit 12/24/2017 9:40a [facility] Of Jimmie Malone M.D., 31867 I20.9 Accounts Payable Administrator AT [facility], [facility] I10 E78.5 Office Visit 10/29/2017 12:47p [facility], Harsha Huynh, 17947 N28.0 Hospitalists N.P. I25.10 E11.8 I10 Office Visit 10/28/2017 12:46p [facility], Harsha Huynh, 65691 N28.0 Hospitalists N.P. E11.8 I25.10 I10 Office Visit 10/27/2017 12:45p [facility], Harsha Huynh, 01585 N28.0 Hospitalists N.P. E11.8 I25.10 I10 Office Visit 10/26/2017 12:44p [facility], Harsha Huynh, 06208 N28.0 Hospitalists N.P. I25.10 E11.8 I10 Office Visit 10/24/2017 2:00p [facility] [place] [address] I25.10 [facility] AT [facility] Office Visit 10/08/2017 3:40p [facility] Of Jimmie Malone M.D., 70156 E78.5 Accounts Payable Administrator AT [facility], [facility] I25.10 I10 Office Visit 09/26/2017 3:40p [facility] Of Jimmie Malone M.D., 08137 R10.13 Accounts Payable Administrator AT [facility], [facility] R94.39 Office Visit 09/18/2017 2:15p [facility] [place] [address] M65.311 C.M.A. M65.351 M77.12 Office Visit 09/18/2017 1:00p [facility] [place] [address] I10 AT [facility] Office Visit 09/05/2017 10:40a [facility] Jimmie Malone M.D., 20235 E78.5 AT [facility], [facility] I10 I25.10 R10.13 Office Visit 08/14/2017 1:15p [facility] [place] [address] M65.311 C.M.A. M65.321 M65.351 G56.01 Office Visit 01/09/2017 11:45a [facility] Andreia Finn, 67142 R47.1 Services Of Matthew Gutiérrez R29.810 Office Visit 12/14/2016 9:45a [facility] Andreia Mckeon 06220 R29.810 Services Of Matthew Finn M.D. Office Visit 12/11/2016 3:30p [facility] Augusto Brian, 56017 R29.810 Brock R47.1 Office Visit 09/04/2016 9:40a [facility] Of Jimmie Malone M.D., 28949 I25.10 Accounts Payable Administrator AT [facility], [facility] I10 E78.5 Office Visit 08/10/2016 3:00p Eladio Finn, 13181 G25.0 Services Of Matthew Gutiérrez R20.0 Office Visit 06/22/2016 12:19p [facility] Of Jimmie Malone M.D., 04183 R07.9 [facility] AT [facility], [facility] I25.10 Office Visit 06/21/2016 12:18p [facility] Of Jimmie Malone M.D., 60257 R07.9 [facility] AT [facility], [facility] I25.10 Office Visit 12/02/2015 9:00a [facility] Andre[facility] Finn, 61363 R51 Services Of Matthew Gutiérrez G25.0 I67.9 Office Visit 07/14/2015 4:00p [facility] Of Matthew Malone M.D., 56999 I10 AT [facility], [facility] I25.9 E78.5 Office Visit 04/21/2015 10:30a [facility] Of Malaika 74207 333.1 Rivka Veras M.D. Office Visit 03/26/2015 10:30a [facility] Andreia Finn, 83871 784.0 Brock 333.1 Office Visit 12/25/2014 9:45a [facility] Of Norberto Roy 17981 719.41 CLilly Gutiérrez 729.5 715.34 Office Visit 10/28/2014 2:40p [facility] Jimmie Malone M.D., 73628 401.1 [facility] AT [facility] 414.9 272.4 Office Visit 10/27/2014 3:30p [facility] 93990 719.41 C.Megan Gutiérrez 726.2 Office Visit 09/23/2014 9:00a [facility] 98425 719.41 Rivka Gutiérrez Office Visit 08/27/2014 12:30p [facility] Andreia Finn, 67238 784.0 Services Of Matthew Gutiérrez 333.1 437.9 Office Visit 05/19/2014 3:15p [facility] Finn, 59643 784.0 Services Of Matthew Gutiérrez 333.1 Office Visit 01/02/2014 2:30p [facility] Jimmie Malone M.D., 23035 414.9 Accounts Payable Administrator AT [facility] 401.1 272.4 Office Visit 11/28/2013 3:00p [facility] Jimmie Malone M.D., 35437 401.1 Accounts Payable Administrator AT [facility] 272.4 414.9 Office Visit 11/04/2013 2:00p [facility] AT Jacqueline Garg, 80954 786.50 [facility] D.OPaul 414.01 401.1 250.00 530.81 272.4 Office Visit 10/27/2013 11:00a [facility] Jacqueline Garg D.O. 15840 414.01 401.1 250.00 530.81 272.4 Office Visit 09/27/2013 4:00p [facility], Oliverio Scott M.D. 63190 786.50 Hospital[facility] 414.01 530.81 401.9 Office Visit 09/26/2013 10:37a [facility] Jacqueline Garg D.O. 00752 786.50 414.01 250.00 401.1 Office Visit 09/26/2013 3:59p [facility], Oliverio Scott M.D. 14458 786.50 Hospitalists 414.01 530.81 401.9 Office Visit 09/24/2013 3:13p [facility] Jacqueline Garg D.O. 87827 411.1 414.01 401.1 250.00 Office Visit 09/23/2013 9:30a [facility] Jacqueline Garg D.O. 01722 411.1 414.01 401.1 250.00 Office Visit 09/15/2013 1:20p [facility] Jacqueline Garg D.O. 83110 413.0 414.01 401.1 272.4 250.90 Office Visit 04/17/2013 2:40p [facility] AT Jacqueline Garg 70495 414.01 [facility] Josiah.OPaul 401.1 272.4 250.90 278.00 Office Visit 10/30/2012 2:20p [facility] Jacqueline Garg D.O. 94767 414.01 401.1 272.4 250.90 278.00 Office Visit 07/26/2012 8:30a [facility] Andreia Finn, 39765 784.0 Services Of Matthew Gutiérrez 354.0 Office Visit 07/07/2012 9:45a [facility],[place] [address] 530.81 Hospitalists 414.02 250.90 Office Visit 07/06/2012 9:45a [facility], [place] [address] 786.51 Hospitalists 414.02 530.81 250.90 Office Visit 06/04/2012 2:30p [facility] AT [facility], 06848 414.01 [facility] 272.4 401.1 Office Visit 05/23/2012 10:15a [facility] M.D. 79346 726.2 C.M.APaul 715.11 Office Visit 02/26/2012 11:00a [facility] Jacqueline Garg D.O. 58930 786.50 414.01 401.1 272.4 250.00 Office Visit 10/18/2011 8:45a [facility], 40096 716.91 [facility] MJaja 726.2 Office Visit 09/27/2011 10:20a [facility] Jacqueline Garg D.O. 12566 414.01 401.1 272.4 250.00 278.00 Office Visit 09/21/2011 2:15p [facility], 59735 716.91 C.M.A. MJaja 726.2 Office Visit 05/01/2011 2:20p [facility] Jacqueline Garg D.O. 70979 414.01 401.1 272.4 250.00 278.00 Office Visit 02/16/2011 8:30a [facility] Jacqueline Garg D.O. 47455 414.01 250.62 401.1 272.4 Office Visit 02/05/2011 8:49a [facility] Stacia Rico, 73344 794.31 Brock 414.01 401.1 786.50 V45.82 Office Visit 02/03/2011 8:44a [facility] Jacqueline Garg D.O. 25589 414.01 V45.82 786.50 Office Visit 02/02/2011 9:30a [facility] Jacqueline Garg D.O. 18765 414.01 v45.82 786.50 Office Visit 01/30/2011 10:20a [facility] Jacqueline Garg D.O. 25541 411.1 250.00 401.1 278.01 Office Visit 07/28/2008 1:00p [facility] Russ Rogers 28422 354.0 Of Matthew Gutiérrez Office Visit 05/25/2008 3:30p [facility] Russ Rogers 85408 354.0 Of Matthew Gutiérrez Office Visit 06/22/2005 3:20p [facility] Terrence Zambrano 92339 786.50 Brock Ruiz 401.1 272.0 278.01 Plan of Care Future Appointment(s):06/05/2018 10:15 am - Jacqueline Barajas M.D. at [facility]10/31/2018 10:30 am - Jude Ramos M.D. at [facility]05/10/2018 - Elvira Regan [facility]-CM65.311 Trigger thumb, right thumbFollow up:Follow up: with Dr. Herr 3-4 ergwaP44.351 Trigger finger, right little eoidmuR20.02 Encounter for removal of sutures
--- NOTE | 2018-06-17 16:31 | ED ---
HPI Chest Pain - HPI Summary HPI Summary: The pt is a 68 y/[facility] since [facility] days ago worsened today. The CP is rated 9/10 in severity at its worst. The pt wears O2 at home. He notes SOB, productive cough and weakness on the R side. The CP is aggravated by walking. He reports that he had a CVA at the end of April 2018 for which he was hospitalized. He did not take any medication for the pain [employer]GER - History of Current Complaint Chief Complaint: EDChestPainROMI Time Seen by Provider: 06/17/18 15:54 Hx Obtained From: Patient, Family/Patrol Mother Onset/Duration: Started Days Ago - 3 days, Atraumatic, Still Present Timing: Constant Current Severity: Severe Pain Intensity: 9 Pain Scale Used: 0-10 Numeric Character: Cough, Productive, Dyspnea at Exertion Aggravating Factor(s): Other: - Walking Associated Signs and Symptoms: Positive: Chest Pain, Weakness - R sided, Shortness of Breath, Productive Cough - Additional Pertinent History Primary Care Physician: JIA - Allergy/Home Medications Allergies/Adverse Reactions: Allergies Allergy/AdvReac Type Severity Reaction Status Date / Time amoxicillin Allergy Diarrhea Verified 06/17/18 15:56 clavulanic acid Allergy Dizziness Verified 06/17/18 15:56 Home Medications: Home Medications Albuterol Sulfate [Ventolin Hfa] 1 puff INH Q4H PRN 06/17/18 [History Confirmed 06/17/18] Albuterol/Ipratropium RESP(NF) [Combivent Respimat (NF)] 1 puff INH DAILY [History Confirmed 06/17/18] Insulin Lispro [Humalog Kwikpen U-100] 4 unit SUBCUT AC 06/17/18 [History Confirmed 06/17/18] Metoprolol Succinate [Toprol Xl] 100 mg PO BID 06/17/18 [History Confirmed 06/17] Triamcinolone 0.1% Oint (NF) [Triamcinolone Acetonide] 1 applic TOPICAL BID [History Confirmed 06/17/18] oxyCODONE TAB* [Roxycodone TAB 5 mg*] 5 - 10 mg PO Q6H PRN 06/17/18 [History Confirmed 06/17/18] PMH/Surg Hx/FS Hx/Imm Hx Previously Healthy: No Endocrine/Hematology History: Reports: Hx Bone Marrow Disease - Multiple myeloma , Hx Diabetes, Hx Thyroid Disease - on medication, Hx Anemia - history of, not recent, Other Endocrine/Hematological Disorders Cardiovascular History: Reports: Hx Angina - unstable angina, Hx Coronary Artery Disease - 3 cardiac stents, 2010 & 2012, Hx Hypercholesterolemia, Hx Hypertension, Other Cardiovascular Problems/Disorders - hyperlipidemia Denies: Hx Cardiac Arrest, Hx Myocardial Infarction, Hx Pacemaker/ICD, Hx Valvular Heart Disease Respiratory History: Reports: Hx Asthma - possible, Hx Chronic Obstructive Pulmonary Disease (COPD), Hx Seasonal Allergies, Hx Sleep Apnea - Oxygen 3 liters at night. Denies: Hx Pulmonary Edema, Other Respiratory Problems/Disorders GI History: Reports: Hx Gastroesophageal Reflux Disease - on medication, Other GI Disorders - PANCREATITIS History: Reports: Hx Kidney Stones - history of, 3, Other Problems/ Disorders - benign growth on L kidney-follows with Dr Posey Denies: Hx Renal Disease Musculoskeletal History: Reports: Hx Arthritis - left shoulder, Hx Back Problems - arthritis, Hx Tendonitis - right elbow, Other Musculoskeletal History - Right hand thumb and pinky trigger fingers Sensory History: Reports: Hx Cataracts - 2007 Bilateral, Hx Contacts or Glasses - reading Denies: Hx Hearing Aid Opthamlomology History: Reports: Hx Cataracts - 2007 Bilateral, Hx Contacts or Glasses - reading Neurological History: Reports: Hx Headaches, Hx Nerve Disease - Neuropathy bilateral feet, hx of carpal tunnel right wrist, Other Neuro Impairments/ Disorders - numbness R hand, Rehman's palsy 2008, balance issues, hx of tremors Psychiatric History: Reports: Hx Anxiety - occasional, Hx Depression - history of, not recent, Other Psychiatric Issues/Disorders - claustrophobia Denies: Hx Panic Disorder - Cancer History Cancer Type, Location and Year: 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 MULTIPLE Myeloma Hx Chemotherapy: Yes - Surgical History Surgery Procedure, Year, and Place: CAD - HEART STENT - 09/2013. Carpal tunnel/ trigger finger surgery-BILATERAL HANDS. Cataracts-BILATERAL. Rt AXILLA DISSECTION - REMOVED melonama-1977. Stem Cell Transplant, [facility] February 2016. Carpal tunnel Hx Anesthesia Reactions: No - Immunization History Date of Tetanus Vaccine: Unk Date of Influenza Vaccine: Fall 2012 Infectious Disease History: Yes Infectious Disease History: Reports: Hx Shingles - 10/2015 Denies: Hx Clostridium Difficile, Hx Hepatitis, Hx Human Immunodeficiency Virus (HIV), Hx of Known/Suspected MRSA, Hx Tuberculosis, Hx Known/Suspected VRE , Hx Known/Suspected VRSA, History Other Infectious Disease, Traveled Outside the [place] in Last 30 Days - Family History Known Family History: Positive: Cardiac Disease, Diabetes - Social History Occupation: Retired Lives: With Family Alcohol Use: Rare Substance Use Type: Reports: None Hx Tobacco Use: Yes - PIPE AND OCCASSIONAL CIGAR Smoking Status (MU): Former Smoker Type: Cigarettes Amount Used/How Often: CIGARS AND PIPE 1-3 TIMES A WEEK WHILE GOLFING Length of Time of Smoking/Using Tobacco: went form about 1pck/d Cigarettes,to pipe occ cigar. Have You Smoked in the Last Year: No Review of Systems Positive: Chest Pain Positive: Shortness Of Breath Positive: Weakness - R sided All Other Systems Reviewed And Are Negative: Yes Physical Exam - Summary Physical Exam Summary: GENERAL: Patient is a well developed and nourished M who is lying comfortable in the stretcher. Patient is not in any acute respiratory distress. HEAD AND FACE: Normocephalic EYES: PERRLA, EOMI x 2. EARS: Hearing grossly intact. MOUTH: Oropharynx within normal limits. NECK: Supple, trachea is midline, no adenopathy, no JVD, no carotid bruit. CHEST: Symmetric, no tenderness at palpation LUNGS: Decreased breath sounds with mild expiratory wheezing CVS: Regular rate and rhythm, S1 and S2 present, no murmurs or gallops appreciated. ABDOMEN: Soft, non-tender. Bowel sounds are normal. No abdominal abnormal pulsations. EXTREMITIES: Full ROM in all major joints, 3+ pitting pedal edema bilaterally, no cyanosis or clubbing. NEURO: Alert and oriented x 3. No acute neurological deficits. Speech is normal and follows commands. SKIN: Dry and warm Triage Information Reviewed: Yes Vital Signs On Initial Exam: Initial Vitals Temp Pulse Resp BP Pulse Ox 98.6 F 67 18 150/50 94 06/17/18 15:49 06/17/18 15:49 06/17/18 15:49 06/17/18 15:49 06/17/18 15:49 Vital Signs Reviewed: Yes Diagnostics - Vital Signs Vital Signs Temp Pulse Resp BP Pulse Ox 06/17/18 16:10 50 27 161/56 94 08/27/18 16:08 38 24 97 06/17/18 15:49 98.6 F 67 18 150/50 94 - Laboratory Result Diagrams: 06/17/18 16:35 06/17/18 16:36 Lab Statement: Any lab studies that have been ordered have been reviewed, and results considered in the medical decision making process. - Radiology CXR Radiology Interpretation Completed By: Radiologist - IMPRESSION: In the correct clinical setting chest x-ray findings could be compatible with early, mild vascular congestion similar in appearance to the prior chest x-ray. The ED physician has reviewed this radiology report. - EKG 16:11 Cardiac Rate: NL - 89 bpm EKG Interpretation: PVC is consistent with ventricular bigeminy Chest Pain Course/Dx - Course Course Of Treatment: A 68 year-old M presents to the ED with a CC of CP since 3 days ago worsened today. The CP is rated 9/10 in severity at its worst. The pt wears O2 at home. He notes SOB, productive cough and weakness on the R side. The CP is aggravated by walking. He reports that he had a CVA at the end of April 2018 for which he was hospitalized. A physical exam revealed decreased breath sounds and 3+ pitting pedal edeam bilaterally. A CXR reveals early, mild vascular congestion similar in appearance to the prior chest x-ray. An EKG reveals PVC consistent with ventricular bigeminy. In the ED course, pt was given Albuterol, Dexamethasone, Furosemide, Guaifensin and Azithromycin which improved the symptoms. I discussed the care of the pt with Coby Alston who agreed to admit the pt. Patient will be admitted to [facility] with a final Dx of CHF exacerbation and COPD exacerbation. The pt is agreeable with this plan. Allergies noted. - Diagnoses Provider Diagnoses: COPD exacerbation, CHF exacerbation - Provider Notifications Discussed Care Of Patient With: Coby Cisneros Time Discussed With Above Provider: 17:51 Instructed by Provider To: Admit As Inpatient Discharge - Sign-Out/Discharge Documenting (check all that apply): Patient Departure - Admit - Discharge Plan Condition: Stable Disposition: ADMITTED TO [facility] - Billing Disposition and Condition Condition: STABLE Disposition: Admitted to [facility] - Attestation Statements Document Initiated by Scribe: Yes Documenting Scribe: Marina Higuera Provider For Whom Toshia is Documenting (Include Credential): Dr. Emma Mai MD Scribe Attestation: I, Marina Higuera , scribed for Dr. Emma Mai MD on 06/17/18 at 1852. Scribe Documentation Reviewed: Yes Provider Attestation: The documentation as recorded by the scribeMarina accurately reflects the service I personally performed and the decisions made by me, Dr. Emma Mai MD
[2018-06-17 16:46] LABS: ABS Basophils 0.1 10^3/ul (0-0.2); ABS Eosinophils 0.4 10^3/ul (0-0.6); ABS Lymphocytes 2.1 10^3/ul (1.0-4.8); ABS Monocytes 0.6 10^3/ul (0-0.8); ABS Neutrophils 6.8 10^3/ul (1.5-7.7); ABS Nucleated RBC 0 10^3/ul; Eosinophil % 3.8 % (0-6); Hematocrit 27 % (42-52); Hemoglobin 9.1 g/dl (14.0-18.0); Lymphocyte % 20.8 % (25-47); Mean Corpuscular HGB Conc 33 g/dl (31-36); Mean Corpuscular Hemoglobin 31 pg (27-31); Mean Corpuscular Volume 93 fL (80-94); Mean Platelet Volume 7.6 um3 (7.4-10.4); Nucleated Red Blood Cells % 0.1; Platelet Count 196 10^3/ul (150-450); Red Blood Count 2.93 10^6/ul (4.00-5.40); Red Cell Distribution Width 18 % (10.5-15)
--- NOTE | 2018-06-17 17:01 | RAD ---
INDICATION: Chest pain COMPARISON: Most recent comparison chest x-rays dated May 21, 2018 TECHNIQUE: Single AP portable view of the chest was obtained. FINDINGS: Image quality is compromised due to the relative inferiority of a portable chest x-ray. The heart and mediastinum exhibit normal size and contour. The pulmonary vasculature appears mildly engorged and indistinct, an appearance similar to the prior chest x-ray. There is no focal mass or consolidation. The costophrenic angles are adequately defined in the AP projection. Visualized bones are normal for the patient's age. IMPRESSION: In the correct clinical setting chest x-ray findings could be compatible with early, mild vascular congestion similar in appearance to the prior chest x-ray.
[2018-06-17] MEDS ORDERED: Dexamethasone IV* 4 MG/ML 1 ML (4 MG) IV SLOW PU ONE (17:22)
[2018-06-17] MEDS ORDERED: Albuterol/Ipratropium NEB.SOL* Albuterol 2.5 MG/Ipratropium 0.5 MG 3 ML INH ONE (17:22)
[2018-06-17] MEDS ORDERED: guaiFENesin/CODIEN 100MG-10MG* 5 ML UDC PO ONE (17:24)
[2018-06-17] MEDS ORDERED: Azithromycin IV(*) 500 MG in NS 0.9% 250 ML* 250 ML IVPB ONE (17:24)
[2018-06-17] MEDS ORDERED: Furosemide IV* 10 MG/ML VIAL (40 MG) IV ONE (17:24)
[2018-06-17 17:25] LABS: INR 0.98 (0.77-1.02)
[2018-06-17] MEDS ORDERED: Azithromycin IV* 500 MG ADVAN VIAL/BAG IVPB ONE (17:33)
[2018-06-17] MEDS ORDERED: Ondansetron TAB* 4 MG PO PRN (18:55)
[2018-06-17] MEDS ORDERED: oxyCODONE TAB* 5 MG TAB PO PRN (18:55)
[2018-06-17] MEDS ORDERED: Albuterol HFA INHALER* 8 gm MDI INH PRN (18:55)
[2018-06-17] MEDS ORDERED: Dextrose 50% Syringe 50 ML* 25 GM/50 ML SYRINGE IV PUSH PRN (19:02)
[2018-06-17] MEDS ORDERED: Nitroglycerin 2% OINT* 1 GM PAK TOPICAL ONE (19:36)
[2018-06-17] MEDS ORDERED: Albuterol/Ipratropium NEB.SOL* Albuterol 2.5 MG/Ipratropium 0.5 MG 3 ML INH PRN (19:43)
[2018-06-17] MEDS ORDERED: Albuterol/Ipratropium NEB.SOL* Albuterol 2.5 MG/Ipratropium 0.5 MG 3 ML INH SCH (20:00)
--- NOTE | 2018-06-17 22:20 | HP ---
CC: Aditya Weston NP * HISTORY AND PHYSICAL: DATE OF ADMISSION: 06/17/18 PRIMARY CARE PROVIDER: Aditya Weston NP. ATTENDING PHYSICIAN: Carmina Gonzalez MD * (dictated by Fortino Thorne NP). CHIEF COMPLAINT: Shortness of breath and chest pain. HISTORY OF PRESENT ILLNESS: Mr. Loaiza is a 68-year-old male with past medical history significant for coronary artery disease status post stenting x3; recent CVA; angina; hypertension; GERD; obesity; chronic ischemic heart disease; obstructive sleep apnea, not on CPAP who states that he had been feeling pretty well since his stroke and being discharged on 05/31/18. The patient states that he had noticed cough and what he feels like was some wheezing ever since he was started on Plavix around 05/22/18. In the past, he has angina with any exertional activity and had been instructed by Cardiology to take a nitro prior to activity. He stated it was taking him up to 3 nitro to be able to mow his lawn, he reports that Cardiology stated that was took much Nitro and he had decreased the amount of activity he was doing. Denies any recent fevers, chills , nausea or vomiting. He states that he had chest pain today that is similar to his past, which he feels was worse due to the fact that he was not doing anything exertional when he was having the pain. He took nitro and the pain did not go away. Additionally, he has been having shortness of breath for a few days. He typically only uses oxygen at night, but used oxygen during the day today due to his shortness of breath. He states that on Sunday approximately 3 days ago, he had crab bisque and a few days prior to that, he had meat loaf. He feels as though his lower extremity edema is slightly worse than his baseline. Additionally, the patient has chronic kidney disease and has been trying to follow up with Dr. Craven, but due to his stroke he has been unable to make an appointment. Due to his symptoms, he presented to the emergency room for further evaluation. While in the emergency room, he had labs showing an elevated creatinine slightly above his baseline. He additionally had an elevated troponin at 0.05, elevated BNP of 1665, and was noted to be anemic. He had a chest x-ray showing vasculature congestion. He received nebulizers, steroids, and azithromycin for a possible COPD exacerbation and additionally, he received IV Lasix for a CHF exacerbation. The hospitalists were asked to evaluate the patient for admission. PAST MEDICAL HISTORY: 1. Coronary artery disease. 2. CVA. 3. Angina. 4. Hypertension. 5. GERD. 6. Multiple myeloma. 7. Melanoma status post BCG treatment. 8. Obesity, BMI of 42. 9. Erectile dysfunction. 10. Headaches. 11. Chronic ischemic heart disease. 12. Hyperlipidemia. 13. Obstructive sleep apnea, uses O2 at night. 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 15. Pancreatitis. 16. Anxiety. 17. Diabetes mellitus. PAST SURGICAL HISTORY: 1. Status post cataract extraction. 2. Status post PCI with history of 3 stents, 1 in the RCA, 1 in the proximal circ, and 1 in the first posterolateral branch or circ. 3. Status post excision of melanoma of the right axilla. 4. Status post trigger finger repair x2 on the left and x2 on the right hand. 5. Status post bilateral carpal tunnel release. HOME MEDICATIONS: Include: 1. Triamcinolone 0.1% apply topical twice daily. 2. Combivent Respimat 1 puff inhalation daily. 3. Humalog KwikPen 4 units subcu with meals. 4. Xanax 0.5 to 1 mg oral twice daily as needed for anxiety. 5. Ventolin 1 puff inhalation every 4 hours as needed for shortness of breath or wheeze. 6. Vitamin D 2000 units oral twice daily. 7. Atorvastatin 80 mg oral daily. 8. Aspirin 81 mg oral daily. 9. Furosemide 40 mg oral daily. 10. Plavix 75 mg oral daily. 11. Gabapentin 3 mg oral twice daily. 12. Lantus 70 units subcu daily. 13. Metoprolol succinate 100 mg oral twice daily. 14. Lidocaine patch 5% apply transdermal daily. 15. Levothyroxine 50 mcg oral daily. 16. Imdur ER 120 mg oral daily. 17. Zofran 4 mg oral 3 times daily as needed for nausea. 18. Asmanex 220 mg MDI 1 puff inhalation daily. 19. Nystatin apply topical 3 times daily as needed for rash. 20. Nitro 0.4 mg sublingual every 5 minutes as needed for chest pain. 21. Prilosec 40 mg oral twice daily. 22. Oxycodone 5 to 10 mg oral every 6 hours as needed for low back pain. 23. Amlodipine 5 mg oral daily. ALLERGIES: AUGMENTIN. FAMILY HISTORY: The patient's sister with a history of heart disease and diabetes. His paternal grandmother with a history of diabetes. Brother with a history of sarcoma. Father with a history of renal failure, coronary artery disease, diabetes, and a pacemaker. Mother with a history of possible CVA and dementia. SOCIAL HISTORY: He is a former smoker, quit approximately 4 years ago. Prior to that, he smoked a pack a day and then had transitioned to a cigar pipe 1 to 3 times a week. He rarely drinks alcohol. Denies recreational drug use. His , Charo Loaiza, will be his surrogate decision maker in the event he is unable to make decisions for himself. REVIEW OF SYSTEMS: I performed an 11-point review of systems. All the pertinent positives and negatives are mentioned in the history of present illness. The remaining review of systems are negative. PHYSICAL EXAMINATION GENERAL APPEARANCE: The patient is alert, pleasant, and appears to be in no acute distress. VITAL SIGNS: Temperature 98.6, heart rate 78, respiratory rate 14, O2 sat 92% on 2 L via nasal cannula, blood pressure 123/70. HEENT: Normocephalic, atraumatic. Pupils are equal and reactive to light. Extraocular movements are intact. RESPIRATORY: There is no accessory muscle use. The lung sounds have some expiratory wheezing and crackles bilateral. CARDIOVASCULAR: Regular rate and rhythm. S1 and S2 present. There are no murmurs, rubs, or gallops heard. ABDOMEN: Soft, nontender, large, nondistended. There are bowel sounds present x4. EXTREMITIES: There is 2 to 3+ bilateral lower extremity edema. DP and PT pulses are 1+ and symmetric. MUSCULOSKELETAL: There is no clubbing or cyanosis noted. The patient exhibits good strength in all extremities, though he does have right upper and lower extremity weakness. NEUROLOGICAL: Cranial nerves II through XII are grossly intact. The patient is alert and oriented x4. PSYCHOLOGICAL: The patient is calm and cooperative. SKIN: There are no rashes or abnormalities seen. DIAGNOSTIC STUDIES/LAB DATA: Sodium 136, potassium 4.1, chloride 106, CO2 of 26, BUN 42, creatinine 2.76, glucose 118. White blood cell count 10, hemoglobin 9.1, hematocrit 27, platelet count 196,000. Troponin 0.05. BNP 1665. EKG shows a sinus rhythm, rate of 89 and PVC's, similar to previous EKG from 12/09. Chest x-ray from today, radiologist's impression: Mild vascular congestion. IMPRESSION: Mr. Loaiza is a 68-year-old male with past medical history significant for coronary artery disease, cerebrovascular accident, angina, hypertension, gastroesophageal reflux disease, multiple myeloma, melanoma, obesity, chronic ischemic heart disease, Rehman's palsy, pancreatitis, anxiety, obstructive sleep apnea treated with nocturnal oxygen, who presented to the ER with complaints of chest pain and shortness of breath who will be admitted as an inpatient for an [id number] diastolic congestive heart failure exacerbation. ASSESSMENT/PLAN: 1. Txpok-vl-[id number] diastolic congestive heart failure. The patient has congestive heart failure exacerbation based on his chest x-ray with vascular congestion, 2 to 3+ bilateral lower extremity edema and crackles in the bases. He received IV Lasix in the ER. I will continue him on 40 mg of IV Lasix daily , with daily weights, strict I's and O's. I will also place him on Nitro paste. His last echocardiogram was 05/21/18 at which time his EF was 55-60%, I will not repeat an echo at this time. 2. Possible chronic obstructive pulmonary disease exacerbation. The patient has some wheezing. I question if this is actually secondary to his congestive heart failure exacerbation. For now we will hold off on steroids and antibiotics. If he continues to have significant wheezing, we can consider treating him for a chronic obstructive pulmonary disease exacerbation. 3. Chest pain. The patient has no signs of acute ischemia on his EKG. He has an elevated troponin of 0.05. I question if the elevated troponin is secondary to his chronic kidney disease. We will trend his troponins. Monitor him on telemetry. He will benefit from a stress test outpatient once he has recovered from his congestive heart failure exacerbation. 4. Chronic kidney disease stage 4. Creatinine is slightly elevated above his baseline. We will avoid necphrotoxic agents. He should follow with Dr. Craven outpatient as previously planned. 5. Anemia. His HH is lower than he was earlier this month, but appears to be similar to his baseline. We will continue to monitor. 6. Coronary artery disease. The patient will be continued on his home aspirin , Plavix, statin, and beta-angel. 7. Cerebrovascular accident. The patient will be continued on his statin, aspirin and Plavix. 8. Hypertension. The patient is currently normotensive. He will be continued on amlodipine, metoprolol. 9. Obesity. The patient's BMI is approximately 42. 10. Diabetes mellitus. We will do glucose checks a.c. and h.s. He will have lispro sliding scale with meals and he will be continued on his home Lantus. We will get a nutrition consult for carb counting as he is trying to transition to carb counting at home. 11. Obstructive sleep apnea. The patient will be continued on oxygen at night. 12. Anxiety. He will be continued on his home Xanax. 13. Fluids, electrolytes, and nutrition. He will be on a heart-healthy, low- sodium diet. 14. Code status. Full code. 15. DVT prophylaxis. He is at highest risk, will have subcu heparin. I will hold on TEDs or SCDs in the setting of his congestive heart failure. 16. Disposition. Inpatient. TIME SPENT: Time for this admission was approximately 60 minutes, greater than half of that was spent with the patient and his discussing medications, past medical history, the events leading up to his arrival today, and performing a physical examination. The case has been reviewed with the attending , Dr. Gonzalez, who agrees with the plan of care. Reviewed by FORTINO THORNE, ALTAF-C 06/18/18 1941 [id number]/[facility] #: [id number] CAM
[2018-06-17] MEDS: Metoprolol Succinate XL TAB* 100 MG PO SCH (22:58)
[2018-06-17] MEDS: CMCS:Pantoprazole TAB (NF) 40 MG TAB PO SCH (22:58)
[2018-06-17] MEDS: Gabapentin CAP(*) 300 MG PO SCH (22:58)
[2018-06-17] MEDS: Cholecalciferol TAB* 1000 UNITS PO SCH (22:58)
[2018-06-17] MEDS: ALPRAZolam TAB* 0.5 MG PO PRN (22:58)
[2018-06-17] MEDS: Heparin VIAL(*) 5000 UNITS/ML VIAL (FIVE THOUSAND) SUBCUT SCH (22:59)
[2018-06-18 06:01] LABS: Hematocrit 26 % (42-52); Hemoglobin 8.7 g/dl (14.0-18.0)
[2018-06-18 06:17] LABS: EGFR Non-African American 21.7 (>60)
[2018-06-18] MEDS: Heparin VIAL(*) 5000 UNITS/ML VIAL (FIVE THOUSAND) SUBCUT SCH ×3 (06:23→22:39)
[2018-06-18] MEDS: Levothyroxine TAB* 50 MCG TAB PO SCH (06:23)
[2018-06-18] MEDS ORDERED: methylPREDNISolone SOD 40 MG* 1 ML VIAL IV SCH (08:00)
--- NOTE | 2018-06-18 08:13 | PN ---
Subjective Date of Service: 06/18/18 Interval History: Patient reports his breathing has improved since admission reporting he doesnt feel SOB at rest. He states his LE edema hasnt changed and feels that he is at his baseline. He reports prior to his CVA at the end of April he started taking his nitro prn more frequently, he then states during his rehab he did not experience this increase in CP and denies the need for prn nitro however over the past 2 week he reports he has had increase in CP with exertion and reports this week the last 3-4 days everyday has taken 3-4 nitros throughout the day when he experience CP with exertion reporting relief of symptoms after taking the nitro., Since being hospitalized he has not had any CP. Pt reports cough which is chronic, denies sputum production. Denies fever and chills. Objective Active Medications: Albuterol (Ventolin Hfa Inhaler*) 1 puff INH Q4H PRN PRN Reason: WHEEZING Albuterol/Ipratropium (Duoneb (Albuterol 2.5 Mg/Ipratropium 0.5 Mg)) 1 neb INH Q6H PRN PRN Reason: SOB/WHEEZING Alprazolam (Xanax Tab*) 0.5 mg PO BID PRN PRN Reason: ANXIETY Last Admin: 06/17/18 22:58 Dose: 0.5 mg Amlodipine Besylate (Norvasc Tab*) 5 mg PO DAILY [facility] Aspirin (Aspirin Ec Tab*) 81 mg PO QAM [facility] Atorvastatin Calcium (Lipitor*) 80 mg PO 1700 [facility] Cholecalciferol (Vitamin D Tab*) 2,000 units PO BID [facility] Last Admin: 06/17/18 22:58 Dose: 2,000 units Clopidogrel Bisulfate (Plavix Tab*) 75 mg PO DAILY [facility] Dextrose (D50w Syringe 50 Ml*) 12.5 gm IV PUSH .FOR FS < 60 - SS PRN PRN Reason: FS < 60 Furosemide (Lasix Iv*) 40 mg IV DAILY [facility] Gabapentin (Neurontin Cap(*)) 300 mg PO Q12HR@0900,2100 [facility] Last Admin: 06/17/18 22:58 Dose: 300 mg Heparin Sodium (Porcine) (Heparin Vial(*)) 5,000 units SUBCUT Q8HR [facility] Last Admin: 06/18/18 06:23 Dose: 5,000 units Insulin Glargine (Lantus(*)) 70 units SUBCUT Q24H [facility] Insulin Human Lispro (Humalog*) 0 - 10 units SUBCUT AC [facility]; Protocol Isosorbide Mononitrate (Imdur Er Tab*) 120 mg PO DAILY [facility] Levothyroxine Sodium (Synthroid Tab*) 50 mcg PO DAILY@0600 [facility] Last Admin: 06/18/18 06:23 Dose: 50 mcg Lidocaine (Lidoderm 5% Patch*) 1 patch TRANSDERM DAILY [facility] Metoprolol Succinate (Toprol Xl Tab*) 100 mg PO BID [facility] Last Admin: 06/17/18 22:58 Dose: 100 mg Mometasone Furoate (Asmanex 220 Mcg Mdi *) 1 puff INH DAILY [facility]; Protocol Ondansetron HCl (Zofran Tab*) 4 mg PO TID PRN PRN Reason: NAUSEA/VOMITING Oxycodone HCl (Roxycodone Tab*) 5 mg PO Q6H PRN PRN Reason: low back pain Pantoprazole Sodium (Protonix Tab (Nf)) 40 mg PO BID [facility] Last Admin: 06/17/18 22:58 Dose: 40 mg Pharmacy Profile Note (Lidocaine Patch Remove*) 1 note PATCH OFF 2100 [facility] Vital Signs - 8 hr 06/18/18 06/18/18 06/18/18 02:11 04:23 07:37 Temperature 98.1 F 97.9 F Pulse Rate 63 55 Respiratory 16 24 18 Rate Blood Pressure 143/53 153/67 (mmHg) O2 Sat by Pulse 95 97 Oximetry 06/18/18 07:40 Temperature Pulse Rate Respiratory 18 Rate Blood Pressure (mmHg) O2 Sat by Pulse Oximetry Oxygen Devices in Use Now: Nasal Cannula Appearance: obese male sitting up on the side of the bed in NAD. A+O x3 Eyes: No Scleral Icterus, PERRLA Ears/Nose/Mouth/Throat: NL Teeth, Lips, Gums, Mucous Membranes Moist Neck: NL Appearance and Movements; NL JVP Respiratory: Symmetrical Chest Expansion and Respiratory Effort, Clear to Auscultation Cardiovascular: NL Sounds; No Murmurs; No JVD, RRR, - - 1+ bilateral LE edema Abdominal: NL Sounds; No Tenderness; No Distention, - - obese Extremities: No Clubbing, Cyanosis Skin: No Nodules or Sclerosis Neurological: Alert and Oriented x 3, NL Sensation, NL Muscle Strength and Tone Lines/Tubes/Other Access: Clean, Dry and Intact Peripheral IV Nutrition: Taking PO's Result Diagrams: 06/18/18 05:29 06/18/18 05:29 Assess/Plan/Problems-Billing Assessment: 68 yo male with a PMH significant for multiple myeloma (followed by Dr. Loya), CAD s/p stenting x3, recent CVA (discharged 05/31/18), angina, HTN, Obesity, chronic ischemic heart disease, RADU, hx of renal infarct who presented on 06/17 with c/o SOB/CP - Patient Problems (1) Acute CHF (congestive heart failure) Comment: - SOB improved since admission - BNP 1600- much higher than previous, - reports high salt diet this past week. - DC weight on 05/31 was 248 - however the day previous was 255 - difficult to know what pts baseline weight is. - Chest xray in ED showing mild CHF - Echo 05/22 normla LV function EF 55-60%, LVH, RV function wnls, no significant valvular abdnormalities, negative bubble study - Started on IV lasix on admission and dose of 40 mg given this am - plan to hold lasix for now and re-evaluated tomorrow - Dank wraps to LEs - Monitor daily weights (2) Chest pain Comment: - angina at baseline taking prn nitro at home however this has increased over the last week. - Initial Trop 0.05 - next two trops were flat. - No ST EKG changes - repeat EKG this am - Plan for Nuclear Stress Test - chemical - tomorrow, NPO at midnight - side consulted with Dr. Hansen who agrees with the plan and reviewed the prior stress test imaging. (3) Acute on chronic renal failure Comment: a little above baseline Repeat in am (4) Diabetes Comment: A1c 04/2018 was 8.7% Hyperglycemic this morning suspect secondary to Dexamethasone given in ED yesterday continue lantus and lispro sliding scale (5) History of CVA (cerebrovascular accident) Comment: recent left thalamic CVA with [facility] [place] hospitalization and PMRU rehab from 05/21 - - dual-antiplatelet therapy for 30 days then plavix monotherapy post CVA - continue ASA, plavix (6) CAD (coronary artery disease) Comment: continue asa, statin, BB, Imdur (7) HTN (hypertension) Comment: - slightly hypertensive - needs better control - plan to increase home norvasc - continue metoprolol, norvasc, metoprolol, Imdur (8) Hypothyroidism Comment: TSH 17.73 in 04/2018-improving from 02/2018. Continue home dose of synthroid Add on TSH (9) RADU (obstructive sleep apnea) Comment: does not use CPAP (10) DVT prophylaxis Comment: SQ heparin Status and Disposition: inpatient CHF and chest pain. Home when medically stable
[2018-06-18] MEDS: Mometasone 220 MCG MDI INH SCH (08:20)
[2018-06-18] MEDS: Insulin LISPRO* 1 UNITS UNIT SUBCUT SCH ×4 (08:54→22:39)
[2018-06-18] MEDS: Metoprolol Succinate XL TAB* 100 MG PO SCH ×2 (08:55→22:38)
[2018-06-18] MEDS: Cholecalciferol TAB* 1000 UNITS PO SCH ×2 (08:55→22:38)
[2018-06-18] MEDS: Isosorbide Mononitrate ER TAB* 60 MG PO SCH (08:55)
[2018-06-18] MEDS: Aspirin EC TAB* 81 MG TAB.EC PO SCH (08:55)
[2018-06-18] MEDS: Insulin GLARGINE(*) 1 UNITS UNIT SUBCUT SCH (08:55)
[2018-06-18] MEDS: Clopidogrel TAB* 75 MG PO SCH (08:55)
[2018-06-18] MEDS ORDERED: Albuterol/Ipratropium RESP(NF) MDI (Combivent Respimat) INH SCH (09:00)
[2018-06-18] MEDS ORDERED: amLODIPine TAB* 5 MG PO SCH (09:00)
[2018-06-18] MEDS ORDERED: Furosemide IV* 10 MG/ML VIAL (40 MG) IV SCH (09:00)
[2018-06-18] MEDS ORDERED: Pneumococcal *Vac Polyvalent 0.5 ML VIAL IM ONE (09:00)
[2018-06-18] MEDS: CMCS:Pantoprazole TAB (NF) 40 MG TAB PO SCH ×2 (09:01→22:38)
[2018-06-18] MEDS: Gabapentin CAP(*) 300 MG PO SCH ×2 (09:01→22:38)
[2018-06-18] MEDS: Lidocaine PATCH 5%* 1 PATCH TRANSDERM SCH (09:01)
[2018-06-18] MEDS ORDERED: Insulin LISPRO* 1 UNITS UNIT SUBCUT ONE (12:42)
[2018-06-18] MEDS ORDERED: Dextrose 50% Syringe 50 ML* 25 GM/50 ML SYRINGE IV PUSH PRN (12:42)
[2018-06-18] MEDS: Atorvastatin* 80 MG TAB PO SCH (17:10)
[2018-06-18] MEDS ORDERED: Azithromycin IV(*) 500 MG in NS 0.9% 250 ML* 250 ML IVPB SCH (18:00)
[2018-06-18] MEDS: Lidocaine Patch REMOVE* 1 NOTE MISC PATCH OFF SCH (22:41)
[2018-06-18] MEDS: ALPRAZolam TAB* 0.5 MG PO PRN (22:50)
[2018-06-19] MEDS: Levothyroxine TAB* 50 MCG TAB PO SCH (05:14)
[2018-06-19] MEDS: Heparin VIAL(*) 5000 UNITS/ML VIAL (FIVE THOUSAND) SUBCUT SCH ×3 (05:15→20:24)
[2018-06-19 05:57] LABS: ABS Basophils 0.1 10^3/ul (0-0.2); ABS Eosinophils 0.1 10^3/ul (0-0.6); ABS Lymphocytes 1.3 10^3/ul (1.0-4.8); ABS Monocytes 0.4 10^3/ul (0-0.8); ABS Neutrophils 7.6 10^3/ul (1.5-7.7); ABS Nucleated RBC 0 10^3/ul; Eosinophil % 0.9 % (0-6); Hematocrit 27 % (42-52); Hemoglobin 9.3 g/dl (14.0-18.0); Lymphocyte % 13.7 % (25-47); Mean Corpuscular HGB Conc 34 g/dl (31-36); Mean Corpuscular Hemoglobin 32 pg (27-31); Mean Corpuscular Volume 93 fL (80-94); Mean Platelet Volume 8.1 um3 (7.4-10.4); Nucleated Red Blood Cells % 0; Platelet Count 200 10^3/ul (150-450); Red Blood Count 2.95 10^6/ul (4.00-5.40); Red Cell Distribution Width 18 % (10.5-15); White Blood Count 9.5 10^3/ul (3.5-10.8)
[2018-06-19] MEDS: ALPRAZolam TAB* 0.5 MG PO PRN (07:45)
[2018-06-19] MEDS: Mometasone 220 MCG MDI INH SCH (07:54)
[2018-06-19] MEDS: Insulin GLARGINE(*) 1 UNITS UNIT SUBCUT SCH (09:22)
[2018-06-19] MEDS: Isosorbide Mononitrate ER TAB* 60 MG PO SCH (09:24)
[2018-06-19] MEDS: CMCS:Pantoprazole TAB (NF) 40 MG TAB PO SCH ×2 (09:24→20:23)
[2018-06-19] MEDS: Cholecalciferol TAB* 1000 UNITS PO SCH ×3 (09:25→20:23)
[2018-06-19] MEDS: Clopidogrel TAB* 75 MG PO SCH (09:25)
[2018-06-19] MEDS: Aspirin EC TAB* 81 MG TAB.EC PO SCH (09:25)
[2018-06-19] MEDS: amLODIPine TAB* 5 MG PO SCH (09:37)
[2018-06-19] MEDS: Insulin LISPRO* 1 UNITS UNIT SUBCUT SCH ×4 (09:41→20:24)
[2018-06-19] MEDS: Metoprolol Succinate XL TAB* 100 MG PO SCH (09:42)
[2018-06-19] MEDS: Gabapentin CAP(*) 300 MG PO SCH ×2 (09:45→20:28)
[2018-06-19] MEDS: Lidocaine PATCH 5%* 1 PATCH TRANSDERM SCH (10:20)
[2018-06-19] MEDS ORDERED: Aminophylline IV* 25 MG/ML 10 ML VIAL ONE (11:11)
[2018-06-19] MEDS ORDERED: Regadenoson* 0.4 MG/5 ML SYRINGE ONE (11:11)
--- NOTE | 2018-06-19 13:15 | PN ---
Subjective Date of Service: 06/19/18 Interval History: pt reports he feels "fine" he denies having any CP or SOB. After stress test noted to have HR 40's which increases with activity - he states he is asymtomatic to this - he also was given a xanax due to anxiety of the test and being in small close areas. He reports he has been fairly sleepy all day. Discussed plan with his - Objective Active Medications: Albuterol (Ventolin Hfa Inhaler*) 1 puff INH Q4H PRN PRN Reason: WHEEZING Last Admin: 06/18/18 08:20 Dose: 1 puff Albuterol/Ipratropium (Duoneb (Albuterol 2.5 Mg/Ipratropium 0.5 Mg)) 1 neb INH Q6H PRN PRN Reason: SOB/WHEEZING Alprazolam (Xanax Tab*) 0.5 mg PO BID PRN PRN Reason: ANXIETY Last Admin: 06/19/18 07:45 Dose: 0.5 mg Amlodipine Besylate (Norvasc Tab*) 10 mg PO DAILY [facility] Last Admin: 06/19/18 09:37 Dose: 10 mg Aspirin (Aspirin Ec Tab*) 81 mg PO QAM [facility] Last Admin: 06/19/18 09:25 Dose: 81 mg Atorvastatin Calcium (Lipitor*) 80 mg PO 1700 [facility] Last Admin: 06/18/18 17:10 Dose: 80 mg Cholecalciferol (Vitamin D Tab*) 2,000 units PO BID [facility] Last Admin: 06/19/18 09:36 Dose: 2,000 units Clopidogrel Bisulfate (Plavix Tab*) 75 mg PO DAILY [facility] Last Admin: 06/19/18 09:25 Dose: 75 mg Dextrose (D50w Syringe 50 Ml*) 12.5 gm IV PUSH .FOR FS < 60 - SS PRN PRN Reason: FS < 60 Gabapentin (Neurontin Cap(*)) 300 mg PO Q12HR@0900,2100 [facility] Last Admin: 06/19/18 09:45 Dose: 300 mg Heparin Sodium (Porcine) (Heparin Vial(*)) 5,000 units SUBCUT Q8HR [facility] Last Admin: 06/19/18 05:15 Dose: 5,000 units Insulin Glargine (Lantus(*)) 70 units SUBCUT Q24H [facility] Last Admin: 06/19/18 09:22 Dose: 70 units Insulin Human Lispro (Humalog*) 0 - 10 units SUBCUT ACHS [facility]; Protocol Last Admin: 06/19/18 09:41 Dose: Not Given Isosorbide Mononitrate (Imdur Er Tab*) 120 mg PO DAILY [facility] Last Admin: 06/19/18 09:24 Dose: 120 mg Levothyroxine Sodium (Synthroid Tab*) 50 mcg PO DAILY@0600 [facility] Last Admin: 06/19/18 05:14 Dose: 50 mcg Lidocaine (Lidoderm 5% Patch*) 1 patch TRANSDERM DAILY [facility] Last Admin: 06/19/18 10:20 Dose: Not Given Metoprolol Succinate (Toprol Xl Tab*) 100 mg PO BID [facility] Last Admin: 06/19/18 09:42 Dose: Not Given Mometasone Furoate (Asmanex 220 Mcg Mdi *) 1 puff INH DAILY [facility]; Protocol Last Admin: 06/19/18 07:54 Dose: 1 puff Ondansetron HCl (Zofran Tab*) 4 mg PO TID PRN PRN Reason: NAUSEA/VOMITING Oxycodone HCl (Roxycodone Tab*) 5 mg PO Q6H PRN PRN Reason: low back pain Pantoprazole Sodium (Protonix Tab (Nf)) 40 mg PO BID [facility] Last Admin: 06/19/18 09:24 Dose: 40 mg Pharmacy Profile Note (Lidocaine Patch Remove*) 1 note PATCH OFF 2100 [facility] Last Admin: 06/18/18 22:41 Dose: Not Given Vital Signs - 8 hr 06/19/18 06/19/18 06/19/18 07:39 07:45 07:56 Temperature 97.3 F Pulse Rate 55 74 Respiratory 20 18 14 Rate Blood Pressure 129/76 (mmHg) O2 Sat by Pulse 98 96 Oximetry 06/19/18 06/19/18 06/19/18 08:00 09:45 09:52 Temperature Pulse Rate Respiratory 20 20 20 Rate Blood Pressure (mmHg) O2 Sat by Pulse Oximetry 06/19/18 10:14 Temperature Pulse Rate 48 Respiratory Rate Blood Pressure 140/64 (mmHg) O2 Sat by Pulse Oximetry Oxygen Devices in Use Now: None Appearance: obese 68 yo male A+O x3 in NAD Eyes: No Scleral Icterus, PERRLA Ears/Nose/Mouth/Throat: NL Teeth, Lips, Gums, Mucous Membranes Moist Neck: NL Appearance and Movements; NL JVP Respiratory: Symmetrical Chest Expansion and Respiratory Effort, Clear to Auscultation Cardiovascular: NL Sounds; No Murmurs; No JVD, RRR, No Edema Abdominal: No Hepatosplenomegaly Lymphatic: No Cervical Adenopathy Extremities: No Edema, No Clubbing, Cyanosis Skin: No Rash or Ulcers, No Nodules or Sclerosis Neurological: Alert and Oriented x 3, NL Sensation, NL Gait, NL Muscle Strength and Tone Lines/Tubes/Other Access: Clean, Dry and Intact Peripheral IV Nutrition: Taking PO's Result Diagrams: 06/19/18 05:28 06/19/18 05:28 Assess/Plan/Problems-Billing Assessment: 68 yo male with a PMH significant for multiple myeloma (followed by Dr. Loya), CAD s/p stenting x3, recent CVA (discharged 05/31/18), angina, HTN, Obesity, chronic ischemic heart disease, RADU, hx of renal infarct who presented on 06/17 with c/o SOB/CP - Patient Problems (1) Acute CHF (congestive heart failure) Comment: - suspect mild CHF exacerbation - SOB improved since admission - BNP 1600 on admission- much higher than previous, - reports high salt diet this past week. - DC weight on 05/31 was 248 - however the day previous was 255 - difficult to know what pts baseline weight is. - Chest xray in ED showing mild CHF - Echo 05/22 normla LV function EF 55-60%, LVH, RV function wnls, no significant valvular abdnormalities, negative bubble study - Continue daily home dose lasix 40 mg po - Dank wraps to LEs - Monitor daily weights (2) Chest pain Comment: - angina at baseline taking prn nitro at home however this has increased over the last week. Side consulted Dr. Witt - she reviewed the nuclear images and states there might be some ischemia in the apex - the patient is not a canidate for cath d/t hx of renal infarcts - recommednatio is to switch the patients metopprol to coreg this evening as he is on a very high dose and is somewhat bradycardic. Start corge 25 mg BID and could discharge home on metorpolol 50 mg po Q6 hr prn for HR >80. Recommendation to keep patient monitor overnight on telemetry. - Initial Trop 0.05 - next two trops were flat. - No ST EKG changes - Nuclear Stress Test - chemical - placing him at low risk - discussed with Dr. Witt (3) Acute on chronic renal failure Comment: a little above baseline Pt is to follow up with Dr. Craven on 06/26 - he is supposed to have labs prior to appointment BMP, Mg, Phos. Repeat in am (4) Diabetes Comment: A1c 04/2018 was 8.7% improving continue lantus and lispro sliding scale (5) History of CVA (cerebrovascular accident) Comment: recent left thalamic CVA with [facility] hospitalization and [facility] rehab from 05/21 - - dual-antiplatelet therapy for 30 days then plavix monotherapy post CVA - continue ASA, plavix (6) CAD (coronary artery disease) Comment: continue asa, statin, BB, Imdur (7) HTN (hypertension) Comment: - slightly hypertensive - needs better control - plan to increase home norvasc - continue metoprolol, norvasc, metoprolol, Imdur (8) Hypothyroidism Comment: TSH 17.73 in 04/2018-improving from 02/2018. Continue home dose of synthroid TSH wnls (9) RADU (obstructive sleep apnea) Comment: does not use CPAP (10) DVT prophylaxis Comment: SQ heparin Status and Disposition: inpatient CHF and chest pain. Home when medically stable
[2018-06-19] MEDS ORDERED: Furosemide TAB* 40 MG PO ONE (13:18)
--- NOTE | 2018-06-19 13:40 | RAD ---
Edited for charges. INDICATION: Chest pain on exertion. Shortness of breath. Diabetes, hypertension , elevated cholesterol, family history of heart disease. COMPARISON: September 25, 2017 TECHNIQUE: 10.900 mCi of Tc-99m Myoview were administered IV. SPECT images of the heart were obtained. Later on the same day. Under the direction of Dr. Malone, the patient was given an IV injection of a pharmacologic stress agent. Subsequently, the patient was given an IV injection of 25.980 mCi Tc-99m Myoview. SPECT images of the heart were obtained and a gated wall motion study was performed. No CT for attenuation correction due to claustrophobia. FINDINGS: Gated wall motion images were obtained at stress and demonstrate global mild hypokinesia. The calculated left ventricular ejection fraction is 51 % at stress. Estimated LEFT ventricular end diastolic volume is 157 mL. TID 1.09. Very small focus of decreased perfusion at the apex at stress without corresponding finding on the rest exam. No additional perfusion defects at stress or rest. IMPRESSION: #. Suggestion of a small focus of potential ischemia at the apex. #. Dilated LEFT ventricle with global mild hypokinesia and borderline low estimated LEFT ventricular ejection fraction. ASSESSMENT: Low risk based on nuclear portion. Based on imaging criteria from ACC/AHA 2002 Guideline Update for the Management of Patients With Chronic Stable Angina Table 23. Noninvasive Risk Stratification. MTDD
[2018-06-19] MEDS: Atorvastatin* 80 MG TAB PO SCH (17:10)
[2018-06-19] MEDS: Carvedilol TAB* 25 MG PO SCH (20:23)
[2018-06-19] MEDS: Lidocaine Patch REMOVE* 1 NOTE MISC PATCH OFF SCH (20:27)
[2018-06-20] MEDS: Heparin VIAL(*) 5000 UNITS/ML VIAL (FIVE THOUSAND) SUBCUT SCH (05:52)
[2018-06-20] MEDS: Levothyroxine TAB* 50 MCG TAB PO SCH (05:52)
[2018-06-20 05:55] LABS: EGFR Non-African American 26.5 (>60)
[2018-06-20] MEDS: Mometasone 220 MCG MDI INH SCH (07:27)
[2018-06-20] MEDS: Insulin GLARGINE(*) 1 UNITS UNIT SUBCUT SCH (08:18)
[2018-06-20] MEDS: Insulin LISPRO* 1 UNITS UNIT SUBCUT SCH ×2 (08:21→12:40)
[2018-06-20] MEDS: Cholecalciferol TAB* 1000 UNITS PO SCH (08:39)
[2018-06-20] MEDS: Isosorbide Mononitrate ER TAB* 60 MG PO SCH (08:40)
[2018-06-20] MEDS: amLODIPine TAB* 5 MG PO SCH (08:41)
[2018-06-20] MEDS: Clopidogrel TAB* 75 MG PO SCH (08:42)
[2018-06-20] MEDS: Gabapentin CAP(*) 300 MG PO SCH (08:42)
[2018-06-20] MEDS: Aspirin EC TAB* 81 MG TAB.EC PO SCH (08:44)
[2018-06-20] MEDS: Carvedilol TAB* 25 MG PO SCH (08:45)
[2018-06-20] MEDS: Lidocaine PATCH 5%* 1 PATCH TRANSDERM SCH (08:46)
[2018-06-20] MEDS: CMCS:Pantoprazole TAB (NF) 40 MG TAB PO SCH (09:14)
--- NOTE | 2018-06-20 10:21 | DCNOTE ---
Subjective Date of Service: 06/20/18 Interval History: Patient reports he feels good and would like to go home. He reports he feels steady on his feet. No CP/SOB. He reports his LE's edema is much improved. Objective Active Medications: Albuterol (Ventolin Hfa Inhaler*) 1 puff INH Q4H PRN PRN Reason: WHEEZING Last Admin: 06/18/18 08:20 Dose: 1 puff Albuterol/Ipratropium (Duoneb (Albuterol 2.5 Mg/Ipratropium 0.5 Mg)) 1 neb INH Q6H PRN PRN Reason: SOB/WHEEZING Alprazolam (Xanax Tab*) 0.5 mg PO BID PRN PRN Reason: ANXIETY Last Admin: 06/19/18 07:45 Dose: 0.5 mg Amlodipine Besylate (Norvasc Tab*) 10 mg PO DAILY [facility] Last Admin: 06/20/18 08:41 Dose: 10 mg Aspirin (Aspirin Ec Tab*) 81 mg PO QAM [facility] Last Admin: 06/20/18 08:44 Dose: 81 mg Atorvastatin Calcium (Lipitor*) 80 mg PO 1700 [facility] Last Admin: 06/19/18 17:10 Dose: 80 mg Carvedilol (Coreg Tab*) 25 mg PO BID [facility] Last Admin: 06/20/18 08:45 Dose: 25 mg Cholecalciferol (Vitamin D Tab*) 2,000 units PO BID [facility] Last Admin: 06/20/18 08:39 Dose: 2,000 units Clopidogrel Bisulfate (Plavix Tab*) 75 mg PO DAILY [facility] Last Admin: 06/20/18 08:42 Dose: 75 mg Dextrose (D50w Syringe 50 Ml*) 12.5 gm IV PUSH .FOR FS < 60 - SS PRN PRN Reason: FS < 60 Gabapentin (Neurontin Cap(*)) 300 mg PO Q12HR@0900,2100 [facility] Last Admin: 06/20/18 08:42 Dose: 300 mg Heparin Sodium (Porcine) (Heparin Vial(*)) 5,000 units SUBCUT Q8HR [facility] Last Admin: 06/20/18 05:52 Dose: 5,000 units Insulin Glargine (Lantus(*)) 70 units SUBCUT Q24H [facility] Last Admin: 06/20/18 08:18 Dose: 70 units Insulin Human Lispro (Humalog*) 0 - 10 units SUBCUT ACHS [facility]; Protocol Last Admin: 06/20/18 08:21 Dose: 2 units Isosorbide Mononitrate (Imdur Er Tab*) 120 mg PO DAILY [facility] Last Admin: 06/20/18 08:40 Dose: 120 mg Levothyroxine Sodium (Synthroid Tab*) 50 mcg PO DAILY@0600 [facility] Last Admin: 06/20/18 05:52 Dose: 50 mcg Lidocaine (Lidoderm 5% Patch*) 1 patch TRANSDERM DAILY [facility] Last Admin: 06/20/18 08:46 Dose: Not Given Mometasone Furoate (Asmanex 220 Mcg Mdi *) 1 puff INH DAILY [facility]; Protocol Last Admin: 06/20/18 07:27 Dose: 1 puff Ondansetron HCl (Zofran Tab*) 4 mg PO TID PRN PRN Reason: NAUSEA/VOMITING Oxycodone HCl (Roxycodone Tab*) 5 mg PO Q6H PRN PRN Reason: low back pain Pantoprazole Sodium (Protonix Tab (Nf)) 40 mg PO BID [facility] Last Admin: 06/20/18 09:14 Dose: 40 mg Pharmacy Profile Note (Lidocaine Patch Remove*) 1 note PATCH OFF 2100 [facility] Last Admin: 06/19/18 20:27 Dose: Not Given Vital Signs - 8 hr 06/20/18 06/20/18 06/20/18 04:10 07:43 08:42 Temperature 97.6 F 97.8 F Pulse Rate 59 59 Respiratory 20 16 18 Rate Blood Pressure 149/69 152/65 (mmHg) O2 Sat by Pulse 93 95 Oximetry 06/20/18 09:03 Temperature Pulse Rate Respiratory 18 Rate Blood Pressure (mmHg) O2 Sat by Pulse Oximetry Oxygen Devices in Use Now: None Appearance: 68 yo male sitting up in a chair in NAD, A+O x3 Eyes: No Scleral Icterus, PERRLA Ears/Nose/Mouth/Throat: Mucous Membranes Moist Neck: NL Appearance and Movements; NL JVP Respiratory: Symmetrical Chest Expansion and Respiratory Effort, Clear to Auscultation Cardiovascular: NL Sounds; No Murmurs; No JVD, RRR, No Edema Abdominal: NL Sounds; No Tenderness; No Distention, - - obese Extremities: No Edema, No Clubbing, Cyanosis Skin: No Rash or Ulcers, No Nodules or Sclerosis Neurological: Alert and Oriented x 3, NL Sensation, NL Muscle Strength and Tone Lines/Tubes/Other Access: Clean, Dry and Intact Peripheral IV Nutrition: Taking PO's Result Diagrams: 06/19/18 05:28 06/20/18 05:15 Assess/Plan/Problems-Billing Assessment: 68 yo male with a PMH significant for multiple myeloma (followed by Dr. Loya), CAD s/p stenting x3, recent CVA (discharged 05/31/18), angina, HTN, Obesity, chronic ischemic heart disease, RADU, hx of renal infarct who presented on 06/17 with c/o SOB/CP - Patient Problems (1) Acute CHF (congestive heart failure) Comment: - suspect mild CHF exacerbation - SOB improved since admission with IV lasix - BNP 1600 on admission- much higher than previous, - reports high salt diet this past week. - DC weight on 05/31 was 248 - however the day previous was 255 - difficult to know what pts baseline weight is. - Chest xray in ED showing mild CHF - Echo 05/22 normla LV function EF 55-60%, LVH, RV function wnls, no significant valvular abdnormalities, negative bubble study - Continue daily home dose lasix 40 mg po - Dank wraps to LEs - Monitor daily weights - avoid high salt foods (2) Chest pain Comment: - angina at baseline taking prn nitro at home however this has increased over the last week. Side consulted Dr. Witt - she reviewed the nuclear images and states there might be some ischemia in the apex - the patient is not a canidate for cath d/t hx of renal infarcts - recommedation to medical optimize and switch the patients metoporol to coreg d/t bradycardic. Tolerating Coreg 25 mg BID - Initial Trop 0.05 - next two trops were flat. - No ST EKG changes - Nuclear Stress Test - chemical - placing him at low risk - discussed with Dr. Witt (3) Acute on chronic renal failure Comment: a little above baseline Pt is to follow up with Dr. Craven on 06/26 - he is supposed to have labs prior to appointment BMP, Mg, Phos on 06/24 - will send home with lab order Repeat in am (4) Diabetes Comment: A1c 04/2018 was 8.7% increased from previous. Inhospital continues to have higher FSBGs FSBGs continue in the 180-300 range continue lantus and lispro sliding scale - add on home dose of 4 units lispro AC Discussed healthy diabetic/cardiac diet with patient - he is interested in referral to [facility] Dr. Loja to see patient prior to DC today - (5) History of CVA (cerebrovascular accident) Comment: recent left thalamic CVA with [facility] [place] [facility] rehab from 05/21 - - dual-antiplatelet therapy for 30 days then plavix monotherapy post CVA - continue ASA, plavix (6) CAD (coronary artery disease) Comment: continue asa, statin, BB, Imdur (7) HTN (hypertension) Comment: - slightly hypertensive - needs better control - plan to increase home norvasc - continue metoprolol, norvasc, coreg, Imdur (8) Hypothyroidism Comment: TSH 17.73 in 04/2018-improving from 02/2018. Continue home dose of synthroid TSH wnls (9) RADU (obstructive sleep apnea) Comment: does not use CPAP (10) DVT prophylaxis Comment: SQ heparin Status and Disposition: inpatient CHF and chest pain. Home when medically stable
[2018-06-20] MEDS ORDERED: Insulin LISPRO* 1 UNITS UNIT SUBCUT SCH (11:30)
--- NOTE | 2018-06-20 11:58 | CONSULT ---
Consult Consult: SUBJECTIVE: 68 yo M with complicated T2DM of >10 years duration, managed with basal/bolus insulin regimen with A1c 7.0-9.5% in recent years. He also has history of CAD (s/p PTCA), CVA (April 2018) MM (s/p aBMT 2015). He presented this week [place] [facility] with complaints of SOB and chest discomfort, attributed to combination of COPD and CHF. Endocrine was consulted on the day prior to discharge for further evaluation and management of hyperglycemia. After his rehab stay in early May 2018, he was discharged on Lantus 70 and Humalog SSI with meals. Prior to this admission, he tells me that he was using scheduled doses of Humalog with every meal, 25 units with breakfast, 45 units with lunch and 35 units with supper -- total of 175 units/day or approximately 1.5 units/kg/day. On this regimen he was able to achieve A1c 7.0% in December 2017 , though most recent A1c 8.7% in April 2018 represents a significant worsening of glycemic control since then. Since Humalog dose was reduced, however, he has experienced significant hyperglycemia with frequent BG>250 noted during the current admission. He has received only sliding scale coverage for BG>200 in the past 48 hours due to NPO status. OBJECTIVE: Vital Signs - 12 hr Temp Pulse Resp BP Pulse Ox 06/20/18 11:38 18 06/20/18 09:03 18 06/20/18 08:42 18 06/20/18 07:43 97.8 F 59 16 152/65 95 06/20/18 07:27 80 06/20/18 04:10 97.6 F 59 20 149/69 93 06/20/18 00:30 152/74 06/20/18 00:21 97.4 F 51 20 175/69 98 GEN: obese male in no distress, sitting upright in chair ENT: MMM, no bruit, no thyromegaly HEART: RRR, no murmur CHEST: no crackles or dullness in upright position ABD: obese, S/NT/ND EXT: bilat ankle wraps in place Glucose Results 06/19/18 00:34 380 06/19/18 08:05 263 06/19/18 13:10 181 06/19/18 16:29 252 06/19/18 16:59 252 06/19/18 20:07 294 08/30/18 08:06 185 Laboratory Results - last 24 hr 06/20/18 05:15 Sodium 138 Potassium 4.0 Chloride 107 Carbon Dioxide 25 Anion Gap 6 BUN 53 H Creatinine 2.44 H Est GFR ( Amer) 32.1 Est GFR (Non-Af Amer) 26.5 BUN/Creatinine Ratio 21.7 H Glucose 197 H Calcium 8.9 Magnesium 2.0 ASSESSMENT: 68 yo M with long-standing, insulin-deficient type 2 diabetes complicated by CKD3, CAD, neuropathy and retinopathy. He has achieved some success in recent years with basal/bolus insulin regimen, but his current doses should be rebalanced to bring him back under control. His estimated daily insulin requirement is 1.2 units/kg/day = 120 units/day. Of this dose, 50% should be provided as basal and 50% provided TID-AC as bolus. Unfortunately, oral and other injectable medications for diabetes are not an option for him due to renal disease. To improve adherence and dosing with multi-dose insulin regimen, I have discussed that he consider a wearable glucose monitor ( [email or web address]) in place of fingerstick glucose monitoring -- this is not currently covered by his insurance carrier, however, and will need to be revisited at a future appointment. PLAN: - reduce Lantus to 60 units once daily - restart Humalog 20 units immediately prior to meals - further insulin titration to happen as outpatient in next 7-10 days - follow-up at [facility] Endocrinology and Diabetes in 1-2 weeks (to be scheduled, patient will be contacted)
[2018-06-20 12:56] VITALS: BP 139/58
--- NOTE | 2018-06-20 16:54 | DS ---
ADDENDUM NOW INCLUDED ON THIS REPORT DISCHARGE SUMMARY: DATE OF ADMISSION: 06/17/18 DATE OF DISCHARGE: 06/20/18 PROVIDER: Sami Narayanan NP ATTENDING PHYSICIAN: Dr. Amin * (report dictated by Sami Narayanan NP). PRIMARY CARE PROVIDER: Aditya Weston NP APPLIED RESEARCH DIRECTOR: Dr. Cruz EDUCATION PROGRAM COORDINATOR: Dr. Batres DISCHARGE DIAGNOSES: 1. Acute-on chronic diastolic congestive heart failure. 2. Angina. 3. Uncontrolled type 2 diabetes. SECONDARY DIAGNOSES: 1. Coronary artery disease. 2. Cerebrovascular accident. 3. Hypertension. 4. Obesity. 5. Gastroesophageal reflux disease. 6. Multiple myeloma. 7. Melanoma status post BCG treatment. 8. Erectile dysfunction. 9. Headaches. 10. Chronic ischemic heart disease. 11. Hyperlipidemia. 12. Episodes of sleep apnea, uses 2 liters of oxygen at night. 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 14. History of pancreatitis. 15. Anxiety. 16. Insulin-dependent type 2 diabetes. 17. History of renal infarcts, now with chronic kidney disease. HISTORY OF PRESENT ILLNESS AND HOSPITAL COURSE: Please see history and physical by Dr. Radha Spears for full admission details. In summary , this is a 68- year-old with a past medical history stated above, who presented to the emergency department on 06/17/18, with shortness of breath and chest pain. The patient reports a history of angina symptoms in which with exertional activity as mentioned to the Cardiology, has taken nitro prior to activity. However, in the last couple of weeks, this has increased in frequency. He also reported use of oxygen during the day due to shortness of breath, and reported mild increase of lower extremity edema. The patient did admit to several salty meals the few days prior to hospitalization. In the emergency department, he was found to have a BNP of 1665, which was much higher than his baseline. Chest x-ray showing "early mild vascular congestion." He also initially had a troponin of 0.05. The patient was admitted to the hospitalist service on telemetry. He underwent a cardiac nuclear stress test placing him at low risk reporting "suggestion of a small focus of potential ischemia at the apex, dilated left ventricle with global, mild hypokinesia and borderline low estimate EF ventricular ejection fraction." Reporting that he has a left ventricular ejection fraction of 51% at rest. Again, the assessment was low-risk based on nuclear portion. The patient underwent a chemical stress portion, which showed no acute changes. I did decide to consult Dr. Witt, it data architect due to the noted potential ischemia at the apex. She reviewed the images and does report it is possible there is a very small amount of ischemia at the apex. The patient is not a candidate for cardiac catheterization due to the history of renal infarcts after his last cardiac catheterization. The patient's troponins were trended, which were as stated above, initially was 0.05 and the next 2 were flat. He has had no EKG changes. Recommendation from Cardiology was to discontinue the patient's metoprolol due to noted baseline heart rates in the 50s and low 60s and start the patient on Coreg 25 mg p.o. b.i.d. As well, the patient was noted to be slightly hypertensive during his hospitalization and his Norvasc was increased from 5 mg to 10 mg p.o. daily. The patient was monitored overnight on medication change for discontinued metoprolol to initiating the Coreg last night. His heart rate is in the high 50s to low 60s. When he ambulates, this increases to 70s. The patient has no complaints today and is stable for discharge to home. His previous it data architect is Dr. Malone, who has recently retired from outpatient medicine and the patient will follow up with it data architect, Dr. Agusto Cruz. In regards to the patient's mild congestive heart failure, he was given several doses of IV Lasix in which he was able to be off oxygen during the day, as well as his lower extremity edema has greatly improved. It was unclear what the patient's baseline weight is per the hospital records and the patient is unaware. I did discuss with the patient to monitor his weight daily and if he gains 2 to 3 pounds, this should be reported to his primary care or it data architect. The patient will resume his home dose of Lasix 40 mg p.o. daily as well we discussed avoiding high-salt meals and added salt. The patient is interested in referal to [facility]. In regards to the patient's uncontrolled type 2 diabetes, it appears his hemoglobin A1c has increased from his last evaluation per the patient as well. He reports his blood sugars have been consistently higher at home. The patient is referred to Dr. Casper Batres, clothes wringer for better diabetes control. The patient has also been referred to [facility]. In regards to the patient's chronic angina, the patient has not had any further chest pain during hospitalization. He has been ambulating around the unit and is at his baseline. The patient is to follow up with Dr. Craven regarding his chronic kidney disease next week. The labs have been ordered for his upcoming appointment in request with the energy administrator. DISCHARGE MEDICATIONS: Coreg 25 mg p.o. b.i.d. New medication: 1. Norvasc 10 mg p.o. daily. Please note this is an increase from 5 mg. 2. Oxycodone 5 to 10 mg p.o. q.6 hours p.r.n. 3. Omeprazole 40 mg p.o. b.i.d. 4. Nitroglycerin 0.4 mg sublingual q.5 minutes p.r.n. 5. Nystatin 1 application topical t.i.d. p.r.n. 6. Asmanex 1 puff INH daily. 7. Imdur 120 mg p.o. daily. 8. Synthroid 50 mcg p.o. daily. 9. Lidocaine patch 5% 1 patch transderm daily. 10. Lantus SoloSTAR 70 units subcu daily. 11. Neurontin 300 mg p.o. b.i.d. 12. Plavix 75 mg p.o. daily. 13. Lasix 40 mg p.o. daily. 14. Aspirin 81 mg p.o. q.a.m. 15. Lipitor 80 mg p.o. daily. 16. Vitamin D 2000 units p.o. daily. 17. Ventolin 1 puff INH q.4 hours. 18. Xanax 0.5 to 1 mg p.o. b.i.d. p.r.n. max daily dose 2 mg. 19. Lisinopril 4 units subcu a.c. 20. Combivent 1 puff INH b.i.d. DISCHARGE PLAN: 1. The patient is to follow up with his primary care provider within 4 to 7 days. 2. Follow up with Dr. Casper Batres. The patient was seen by Dr. Batres on the day of discharge. 3. Follow up with Dr. Agusto Cruz. The patient was instructed to call his office to make a followup appointment. 4. Follow up with Dr. Bradly Craven, energy administrator on 06/26/18, at 10:30 a.m. 5. The patient is to get labs on 06/25/18, with phosphorus, magnesium, and BNP with results sent to Dr. Craven. 6. Referal to [facility]. TIME SPENT: Approximately 60 minutes was spent on this discharge. SAMI NARAYANAN NP ADDENDUM: Discussed case with Dr. Armin Loaj, clothes wringer, who saw the patient prior to discharge recommending the patient lower his Lantus to 60 units subcu 24 hours and discontinue the sliding scale and increase his mealtime lispro to 20 units with meals 3 times a day. He will follow up with the patient in this office next week or the week prior. SAMI NARAYANAN NP [id number]/CPS #: [id number]/CPS #: [id number] CAM
--- NOTE | 2018-06-20 20:51 | DS ---
DISCHARGE SUMMARY: DATE OF ADMISSION: DATE OF DISCHARGE: ADDENDUM: Discussed case with Dr. Armin Loja, data clerk, who saw the patient prior to discharge recommending the patient lower his Lantus to 60 units subcu 24 hours and discontinue the sliding scale and increase his mealtime lispro to 20 units with meals 3 times a day. He will follow up with the patient in this office next week or the week prior. SAMI NARAYANAN NP [id number]/CPS #: [id number] CAM
== END 2018-06-20 14:30 | disposition home or self-care (01) | DRG 194 ==
LOC: ED 15:40 → MEDTELE 17:48
PROVIDERS: ADMIT Internal Medicine; ATTEND Hospitalist
PROC: 4A12XM4 Monitoring of Cardiac Stress, External Approach (ICD-10-PCS; principal; 2018-06-19)
DX: I13.0 Hypertensive heart and chronic kidney disease with heart failure and stage 1 through stage 4 chronic kidney disease, or unspecified chronic kidney disease (principal); I50.33 Acute on chronic diastolic (congestive) heart failure; N18.4 Chronic kidney disease, stage 4 (severe); N17.9 Acute kidney failure, unspecified; Z68.41 Body mass index [BMI] 40.0-44.9, adult; E03.9 Hypothyroidism, unspecified; J44.9 Chronic obstructive pulmonary disease, unspecified; J30.2 Other seasonal allergic rhinitis; M19.012 Primary osteoarthritis, left shoulder; F41.9 Anxiety disorder, unspecified; F32.9 Major depressive disorder, single episode, unspecified; F40.240 Claustrophobia; K21.9 Gastro-esophageal reflux disease without esophagitis; E66.9 Obesity, unspecified; I25.9 Chronic ischemic heart disease, unspecified; D63.1 Anemia in chronic kidney disease; E78.5 Hyperlipidemia, unspecified; E11.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mellitus with diabetic chronic kidney disease; E11.40 Type 2 diabetes mellitus with diabetic neuropathy, unspecified; E11.319 Type 2 diabetes mellitus with unspecified diabetic retinopathy without macular edema; N52.9 Male erectile dysfunction, unspecified; G47.33 Obstructive sleep apnea (adult) (pediatric); E11.65 Type 2 diabetes mellitus with hyperglycemia; I25.119 Atherosclerotic heart disease of native coronary artery with unspecified angina pectoris; R51 Headache; Z88.0 Allergy status to penicillin; Z88.8 Allergy status to other drugs, medicaments and biological substances; Z95.5 Presence of coronary angioplasty implant and graft; Z99.81 Dependence on supplemental oxygen; Z85.79 Personal history of other malignant neoplasms of lymphoid, hematopoietic and related tissues; Z98.42 Cataract extraction status, left eye; Z98.41 Cataract extraction status, right eye; Z87.442 Personal history of urinary calculi; Z82.49 Family history of ischemic heart disease and other diseases of the circulatory system; Z83.3 Family history of diabetes mellitus; Z87.891 Personal history of nicotine dependence; Z86.73 Personal history of transient ischemic attack (TIA), and cerebral infarction without residual deficits; Z81.8 Family history of other mental and behavioral disorders; Z84.1 Family history of disorders of kidney and ureter; Z85.820 Personal history of malignant melanoma of skin; Z79.4 Long term (current) use of insulin; Z79.82 Long term (current) use of aspirin; Z79.02 Long term (current) use of antithrombotics/antiplatelets
CPT/HCPCS: 36415; 71045; 78452; 80048; 80053; 82947; 83605; 83735; 83880; 84443; 84484; 85014; 85018; 85025; 85610; 85730; 93005; 93017; 94640; 99284; A9270-GY; A9502; J0280; J0456; J1100; J1644; J1940; J2785

== ENCOUNTER 2018-09-02 12:11 | Inpatient (IN) | payer BC ==
[2018-09-02] MEDS ORDERED: NS 0.9% 1000 ML* 1,000 ML IV ONE (12:40)
[2018-09-02] MEDS ORDERED: Levofloxacin 750 MG IVPREMIX(* 750 MG/150 ML BAG IVPB ONE (12:40)
[2018-09-02] MEDS ORDERED: Acetaminophen TAB* 325 MG PO ONE (12:40)
--- NOTE | 2018-09-02 12:44 | ED ---
Complex/Multi-Sys Presentation - HPI Summary HPI Summary: A 68 y/o male brought in by ambulance presents to the ED c/o generalized weakness since the night of 09/01/2018. He states that after sleeping he has gotten better, but the morning of 09/02/2018 he fell and could not get back up. He is currently in remission for multiple myeloma. He also c/o a fever at 102.6 , chills, edema in both legs, pain in his big toe of his right leg, and a nonproductive cough. He denies rhinorrhea, dysuria and diarrhea. He states that he is taking Lantus for his DM. He states that he had diabetic neuropathy when going through chemotherapy. He denies smoking. - History Of Current Complaint Time Seen by Provider: 09/02/18 12:27 Hx Obtained From: Patient Onset/Duration: Gradual Onset Timing: Constant Severity Currently: Moderate Severity Initially: Moderate Associated Signs And Symptoms: Positive: Weakness, Edema. Negative: Dysuria - Allergies/Home Medications Allergies/Adverse Reactions: Allergies Allergy/AdvReac Type Severity Reaction Status Date / Time amoxicillin Allergy Diarrhea Verified 07/15/18 09:29 clavulanic acid Allergy Dizziness Verified 07/15/18 09:29 Home Medications: Home Medications Albuterol HFA INHALER* [Ventolin HFA Inhaler*] 1 puff INH .Q4-6H PRN 09/02/18 [ History Confirmed 09/02/18] Atorvastatin* [Lipitor*] 80 mg PO 1700 09/02/18 [History Confirmed 09/02/18] Benzonatate CAP* [Tessalon 100 MG CAP*] 100 mg PO TID PRN 09/02/18 [History Confirmed 09/02/18] Carvedilol TAB* [Coreg TAB*] 25 mg PO BID WITH MEALS 09/02/18 [History Confirmed 09/02/18] Clopidogrel TAB* [Plavix TAB*] 75 mg PO DAILY 09/02/18 [History Confirmed ] Gabapentin CAP(*) [Neurontin 300 CAP(*)] 300 mg PO BID 09/02/18 [History Confirmed 09/02/18] Insulin GLARGINE(*) [Lantus(*)] 60 units SUBCUT QPM 09/02/18 [History Confirmed 09/02/18] Levothyroxine TAB* [Synthroid TAB*] 50 mcg PO DAILY 09/02/18 [History Confirmed 09/02/18] Multivitamin [Multivitamins] 1 cap PO DAILY 09/02/18 [History Confirmed 09/02/18 ] Pantoprazole TAB (NF) [Protonix TAB (NF)] 40 mg PO DAILY 09/02/18 [History Confirmed 09/02/18] amLODIPine TAB* [Norvasc 5 mg TAB*] 5 mg PO DAILY 09/02/18 [History Confirmed ] PMH/Surg Hx/FS Hx/Imm Hx Endocrine/Hematology History: Reports: Hx Bone Marrow Disease - Multiple myeloma , Hx Diabetes, Hx Thyroid Disease - on medication, Hx Anemia - history of, not recent, Other Endocrine/Hematological Disorders Cardiovascular History: Reports: Hx Angina - unstable angina, Hx Coronary Artery Disease - 3 cardiac stents, 2010 & 2012, Hx Hypercholesterolemia, Hx Hypertension - ON MEDS, Other Cardiovascular Problems/Disorders - hyperlipidemia Denies: Hx Cardiac Arrest, Hx Myocardial Infarction, Hx Pacemaker/ICD, Hx Valvular Heart Disease Respiratory History: Reports: Hx Asthma - possible, Hx Chronic Obstructive Pulmonary Disease (COPD), Hx Seasonal Allergies, Hx Sleep Apnea - Oxygen 3 liters at night. Denies: Hx Pulmonary Edema, Other Respiratory Problems/Disorders GI History: Reports: Hx Gastroesophageal Reflux Disease - on medication, Other GI Disorders - PANCREATITIS History: Reports: Hx Kidney Stones - history of, 3, Other Problems/ Disorders - benign growth on L kidney-follows with Dr Posey Denies: Hx Renal Disease Musculoskeletal History: Reports: Hx Arthritis - left shoulder, Hx Back Problems - arthritis, Hx Tendonitis - right elbow, Other Musculoskeletal History - Right hand thumb and pinky trigger fingers Sensory History: Reports: Hx Cataracts - 2008 Bilateral, Hx Contacts or Glasses - reading Denies: Hx Hearing Aid Opthamlomology History: Reports: Hx Cataracts - 2008 Bilateral, Hx Contacts or Glasses - reading Neurological History: Reports: Hx Headaches, Hx Nerve Disease - Neuropathy bilateral feet, hx of carpal tunnel right wrist, Other Neuro Impairments/ Disorders - numbness R hand, Rehman's palsy 2009, balance issues, hx of tremors Psychiatric History: Reports: Hx Anxiety - occasional, Hx Depression - history of, not recent, Other Psychiatric Issues/Disorders - claustrophobia Denies: Hx Panic Disorder - Cancer History Cancer Type, Location and Year: 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 MULTIPLE Myeloma Hx Chemotherapy: Yes - Surgical History Surgery Procedure, Year, and Place: CAD - HEART STENT - 09/2013 -3X. Carpal tunnel/trigger finger surgery-BILATERAL HANDS. Cataracts-BILATERAL. Rt AXILLA DISSECTION - REMOVED melonama-1977. Stem Cell Transplant, [facility] February 2016. Carpal tunnel Hx Anesthesia Reactions: No - Immunization History Date of Tetanus Vaccine: Unk Date of Influenza Vaccine: Fall 2012 Infectious Disease History: Reports: Hx Shingles - 10/2015 Denies: Hx Clostridium Difficile, Hx Hepatitis, Hx Human Immunodeficiency Virus (HIV), Hx of Known/Suspected MRSA, Hx Tuberculosis, Hx Known/Suspected VRE , Hx Known/Suspected VRSA, History Other Infectious Disease - Family History Known Family History: Positive: Cardiac Disease, Diabetes - Social History Alcohol Use: Occasionally Substance Use Type: Reports: None Hx Tobacco Use: Yes - PIPE AND OCCASSIONAL CIGAR Smoking Status (MU): Former Smoker Type: Cigarettes Amount Used/How Often: CIGARS AND PIPE 1-3 TIMES A WEEK WHILE GOLFING Length of Time of Smoking/Using Tobacco: went form about 1pck/d Cigarettes,to pipe occ cigar. Have You Smoked in the Last Year: No Review of Systems Positive: Fever, Chills Negative: Nasal Discharge Positive: Cough Negative: Diarrhea Negative: dysuria Positive: Myalgia, Edema Positive: Weakness All Other Systems Reviewed And Are Negative: Yes Physical Exam - Summary Physical Exam Summary: Appearance: The patient is well-nourished in no acute distress and in no acute pain. Skin: The skin is warm and dry and skin color reflects adequate perfusion. HEENT: The head is normocephalic and atraumatic. The pupils are equal and reactive. The conjunctivae are clear and without drainage. Nares are patent and without drainage. Mouth reveals moist mucous membranes and the throat is without erythema and exudate. The external ears are intact. The ear canals are patent and without drainage. The tympanic membranes are intact. Neck: The neck is supple with full range of motion and non-tender. There are no carotid bruits. There is no neck vein distension. Respiratory: Chest is non-tender. Lungs are clear to auscultation and breath sounds are symmetrical and equal. Cardiovascular: Hard to hear heart because of body habitus and pt was not very cooperative. There is no murmur or rub auscultated. Abdomen: The abdomen is soft and non-tender. There are normal bowel sounds heard in all four quadrants and there is no organomegaly palpated. Musculoskeletal: There is no back tenderness noted. Extremities are non-tender with full range of motion. There is good capillary refill. Bilateral pitting edema of legs. Neurological: Patient is alert and oriented to person, place and time. The patient has symmetrical motor strength in all four extremities. Cranial nerves are grossly intact. Deep tendon reflexes are symmetrical and equal in all four extremities. Psychiatric: The patient has an appropriate affect and does not exhibit any anxiety or depression. Triage Information Reviewed: Yes Vital Signs Reviewed: Yes Diagnostics - Laboratory Result Diagrams: 09/02/18 13:09 09/02/18 13:09 Lab Statement: Any lab studies that have been ordered have been reviewed, and results considered in the medical decision making process. - Radiology CXR Radiology Interpretation Completed By: Radiologist - No evidence for acute disease. This report has been reviewed by the ED physician. Complex Multi-Symp Course/Dx Course Of Treatment: Mr. Loaiza presented to the emergency department complaining of extreme fatigue which came on today and perhaps a little bit yesterday. His only other complaint has been a cough that's mild for a few days. He was febrile on arrival. I could not find the source. He was given Levaquin on arrival in the emergency department and IV fluids and the hospitals were contacted for admission. - Diagnoses Provider Diagnoses: Fever - Physician Notifications Discussed Care Of Patient With: Luis Alfredo Stoddard Time Discussed With Above Provider: 14:40 Instructed by Provider To: Other - Dr. Stoddard, oncologist, wants the hospitalist to accept the pt for admission. Discharge - Sign-Out/Discharge Documenting (check all that apply): Post-Discharge Follow Up - Admit - Discharge Plan Condition: Fair Disposition: ADMITTED TO [facility] - Billing Disposition and Condition Condition: FAIR Disposition: Admitted to [facility] - Attestation Statements Document Initiated by Scribe: Yes Documenting Scribe: Jimmie Barkley Provider For Whom Scribe is Documenting (Include Credential): Shahid Perkins MD Scribe Attestation: IJimmie, scribed for Shahid Perkins MD on 09/02/18 at 2040. Scribe Documentation Reviewed: Yes Provider Attestation: The documentation as recorded by the scribe, Jimmie Barkley accurately reflects the service I personally performed and the decisions made by me, Shahid Perkins MD Consult Consult: At 13:05 Dr. Mojica accepted the pt for admission.
[2018-09-02 13:21] LABS: ABS Basophils 0.1 10^3/ul (0-0.2); ABS Eosinophils 0.1 10^3/ul (0-0.6); ABS Lymphocytes 1.4 10^3/ul (1.0-4.8); ABS Monocytes 0.7 10^3/ul (0-0.8); ABS Neutrophils 7.9 10^3/ul (1.5-7.7); ABS Nucleated RBC 0 10^3/ul; Eosinophil % 1.2 % (0-6); Hematocrit 27 % (42-52); Lymphocyte % 13.9 % (25-47); Mean Corpuscular HGB Conc 34 g/dl (31-36); Mean Corpuscular Hemoglobin 31 pg (27-31); Mean Corpuscular Volume 92 fL (80-94); Mean Platelet Volume 6.8 fL (7.4-10.4); Nucleated Red Blood Cells % 0.1; Platelet Count 203 10^3/ul (150-450); Red Blood Count 2.92 10^6/ul (4.00-5.40); Red Cell Distribution Width 19 % (10.5-15); White Blood Count 10.3 10^3/ul (3.5-10.8)
[2018-09-02 13:31] LABS: INR 1.07 (0.77-1.02)
[2018-09-02 13:54] LABS: EGFR Non-African American 24.1 (>60)
[2018-09-02 14:22] LABS: Urine Appearance Clear; Urine Blood 2+ (Negative); Urine Color Yellow; Urine Ketones Negative (Negative); Urine Protein 2+(100 mg/dL) (Negative); Urine Red Blood Cell 1+(3-5/hpf) (Absent); Urine Specific Gravity 1.013 (1.010-1.030); Urine Urobilinogen Negative (Negative); Urine White Blood Cell Absent (Absent)
[2018-09-02] MEDS ORDERED: Acetaminophen TAB* 325 MG PO PRN (16:00)
[2018-09-02] MEDS ORDERED: Dextrose 50% Syringe 50 ML* 25 GM/50 ML SYRINGE IV PUSH PRN (16:00)
[2018-09-02] MEDS ORDERED: NS 0.9% 1000 ML* 1,000 ML IV SCH (16:00)
[2018-09-02] MEDS ORDERED: oxyCODONE TAB* 5 MG TAB PO PRN (16:03)
[2018-09-02] MEDS ORDERED: ALPRAZolam TAB* 0.5 MG PO PRN (16:03)
[2018-09-02] MEDS ORDERED: Albuterol 2.5 MG/3 ML NEB.SOL* (0.083%) INH PRN (16:07)
[2018-09-02] MEDS: Insulin LISPRO* 1 UNITS UNIT SUBCUT SCH (18:21)
[2018-09-02] MEDS: Azithromycin IV(*) 500 MG in NS 0.9% 250 ML* 250 ML IVPB SCH (18:21)
[2018-09-02] MEDS: Insulin GLARGINE(*) 1 UNITS UNIT SUBCUT SCH (18:22)
[2018-09-02] MEDS: Atorvastatin* 80 MG TAB PO SCH (18:23)
[2018-09-02] MEDS: Carvedilol TAB* 25 MG PO SCH (18:23)
[2018-09-02] MEDS: cefTRIAXone(*) 1 GM in NS 0.9% 50 ML* 50 ML IVPB SCH (19:49)
[2018-09-02] MEDS: Albuterol/Ipratropium RESP(NF) MDI (Combivent Respimat) INH SCH (20:15)
--- NOTE | 2018-09-02 20:43 | HP ---
AMENDED REPORT NOW INCLUDES DESIGNATED COSIGNER CC: Aditya Weston NP; Dr. Agusto Cruz; Dr. Craven; Dr. Loya * HISTORY AND PHYSICAL: DATE OF ADMISSION: 09/02/18 PRIMARY CARE PROVIDER: Aditya Weston NP ATTENDING PHYSICIAN WHILE IN THE HOSPITAL: Kala Srinivasan MD * (report dictated by Amarjit Huynh NP) CHIEF COMPLAINT: 1. Cough. 2. Weakness. 3. Not feeling well. HISTORY OF PRESENT ILLNESS: Mr. Loaiza is a 68-year-old male patient with multiple medical problems. He has a history of CAD, CVA, angina, hypertension, GERD, multiple myeloma. He carries a history of melanoma, history of CHF, obesity, ED, headaches, COPD, CKD, Rehman's palsy, RADU, hyperlipidemia, pancreatitis, anxiety, and history of diabetes. He is coming in to our ER today stating that this morning, he was feeling very weak. He has been having a cough for the last 2 to 3 days. It has been nonproductive. He denies any URI symptoms. He does not feel short of breath, but he was concerned today because he felt like he had a fever at home, may have had one last night he says. He says he he could barely walk, could not get up, he just was generally weak. His was concerned and brought him into the hospital. He denies again shortness of breath. There has been no nausea, no vomiting. No abdominal pain. He states that his appetite has been okay. He is feeling better now, he is eating. He denied having any chest discomfort with this and he denies having any arthralgias or myalgias and no sick contacts. He came into the ED today. It was noted that he was febrile as high as 103.9. When he came in, heart rate was in the 90s. He was tachypneic. There was concern because he was showing signs of SIRS and sepsis. Chest x-ray did reveal possible nodule. Because of these findings, we were asked to evaluate for admission. PAST MEDICAL HISTORY: Significant for: 1. CAD. 2. CVA. 3. Angina. 4. Hypertension. 5. GERD. 6. Multiple myeloma. 7. Melanoma. 8. CHF. 9. Obesity. 10. ED. 11. Headaches. 12. COPD. 13. CKD. 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 15. RADU. 16. Hyperlipidemia. 17. Pancreatitis. 18. Anxiety. 19. Diabetes. 20. Hypothyroidism. PAST SURGICAL HISTORY: 1. He has had cardiac catheterization with 3 stents. 2. Cataract extraction. 3. Melanoma excision to his right axilla. 4. Trigger finger repair to the left hand twice, to the right hand twice. 5. Carpal tunnel release bilaterally. HOME MEDICATIONS: According to the list that he provided includes: 1. Oxycodone 1 to 2 tablets p.o. every 6 hours as needed. 2. Zofran 4 mg p.o. t.i.d. as needed. 3. Triamcinolone cream 1 application topically b.i.d. 4. Xanax 0.25 to 0.5 mg p.o. b.i.d. as needed. 5. Nystatin powder 1 application topically t.i.d. as needed. 6. Lidocaine 1 patch transdermally daily as needed. 7. Coreg 25 mg p.o. b.i.d. with meals. 8. Tessalon Perles 100 mg p.o. t.i.d. as needed. 9. Combivent 1 puff inhaled b.i.d. 10. Ventolin 1 puff inhaled every 4 to 6 hours as needed. 11. Vitamin D 2000 units p.o. b.i.d. 12. Gabapentin 300 mg p.o. b.i.d. 13. Aspirin 81 mg daily. 14. Nitro 0.4 mg sublingual q.5 minutes x3 p.r.n. chest pain. 15. Imdur 120 mg p.o. daily. 16. Lipitor 80 mg daily. 17. Multivitamin 1 tablet daily. 18. Lasix 40 mg daily. 19. Norvasc 5 mg daily. 20. Synthroid 50 mcg daily. 21. Protonix 40 mg daily. 22. Plavix 75 mg daily. 23. Insulin lispro 20 units subcu before meals. 24. Lantus 60 units subcu q.p.m. ALLERGIES TO MEDICATIONS: Include AUGMENTIN. FAMILY HISTORY: His mother had history of dementia. Father also had a history of renal failure, CAD, and diabetes. SOCIAL HISTORY: He is a former smoker. He does not drink alcohol; if he does, it is very rarely. Surrogate decision maker is his . REVIEW OF SYSTEMS: There is a documented fever here. He did admit to having possible fever last night. He denies having any chills. He denied having any rhinorrhea. No sore throat. No thyroid enlargement. He denied chest pain. He denied any shortness of breath. No orthopnea. He denies having any weight changes. No nocturnal dyspnea. There was no abdominal pain. No nausea, no vomiting. No dysuria, no frequency. There was no seizure. No loss of consciousness. No pruritus and no skin ulcerations. Review of 14 systems completed, all others negative. PHYSICAL EXAMINATION GENERAL: At this time, Mr. Loaiza is a 68-year-old male patient. He is chronically ill appearing. He is sitting in the ED stretcher. He does not appear to be in any acute distress. VITAL SIGNS: Blood pressure 165/89, pulse 78, respirations were 24 now with O2 saturation was 94% on 2 L, temperature of 100.4. HEENT: Head: Atraumatic and normocephalic. Eyes: EOMs are intact. Sclerae are anicteric and not pale. Throat: Oral mucosa appears to be dry. No oropharyngeal erythema. NECK: Supple. LUNGS: Clear to auscultation bilaterally. There were no wheezes, rales, rhonchi. HEART: Sounds S1, S2. He had a regular rate and rhythm. He had no murmurs, rubs, or gallops. ABDOMEN: Soft. It was flat, it was nontender. Bowel sounds were present. EXTREMITIES: Pulses were 2+ throughout. He is moving all 4 extremities now with 5/5 strength. NEUROLOGICAL: He is awake. He is alert. He is oriented x3. His tongue is midline. Harpoon Engagement Planning Operator were equal. He had no gross focal deficits. SKIN: Intact. LABORATORY DATA/DIAGNOSTIC STUDIES: Labs, WBC 10.3, RBC of 2.92, hemoglobin of 9, hematocrit 27, it is right at his baseline for his hemoglobin, his platelet count was 203. INR 1.07. His sodium was 135, potassium 4.0, chloride of 103, bicarb 24, BUN 39, creatinine at 2.65, his baseline creatinine is right around 2.4. His glucose is 130. Lactate 0.9. Calcium 8.8. Total bili 1.0, AST 13, ALT 14, alk phos 97. Troponin 0.04. CRP is 70. Albumin is 3.7. Urine showed 2+ protein, 2+ blood, 1+ rbc, 1+ glucose. Serology was negative for the flu. He had a chest x- ray obtained today, which revealed no evidence for acute disease. He did have an echo done in April of this year, which showed EF of 55% to 60%. He did have a stress test done on 06/19/18, which did show a small focus of potential ischemia at the apex, dilated left ventricle with global mild hypokinesis and borderline low left ventricular EF. Old medical records were reviewed. ASSESSMENT AND PLAN: Mr. Loaiza is a 68-year-old male patient coming in to the ED today with complaints of cough, weakness, fevers and chills. We were asked to evaluate for admission. He will be admitted under inpatient status for: 1. Systemic inflammatory response syndrome. Again, etiology is unclear as to the source of infection. It could certainly be upper respiratory infection, possible viral. So, he has been pancultured. I have put him on empiric antibiotic therapy. I am going to hydrate him with 75 cc an hour of fluid, keeping an eye on his respiratory status given his history of congestive heart failure, but I think he looks clinically dehydrated currently. He deserves the fluids, he is pancultured and we will continue to follow him. This could just be viral. He is now wheezing on exam, so I do not think he need steroids, but I did order p.r.n. albuterol for him. We will try to get sputum cultures, Strep pneumoniae antigen and Legionella antigen and we will continue to follow. 2. Abnormal chest x-ray. There does appear to be a possible nodule, so I am getting a CT of the chest. Unfortunately, I cannot do it with contrast because of his history of chronic kidney disease. 3. Coronary artery disease. His troponin was mildly elevated. It is probably demand ischemia in the setting of acute illness. We will trend those troponins. We will get an echo. EKG is pending right now, which is being done, but he is on aspirin, statin, beta-angel. We will continue these. 4. History of cerebrovascular accident. Continue with secondary prevention. 5. History of angina. Continue his nitrates with hold parameters and his beta - angel and continue to follow. 6. Hypertension. Continue meds as prescribed with the exception of Lasix. 7. History of congestive heart failure. He does not appear to be in acute failure. We will diurese as needed. I held his Lasix. He appears to be dry. 8. History of multiple myeloma. Again, we are getting a CT of chest. If there is any concern for masses, certainly we will get in touch with Oncology. 9. Melanoma. Again, we are CTing his chest. If there is any concern for masses, we will touch base with Oncology. 10. Gastroesophageal reflux disease. Continue PPI therapy. 11. History of chronic obstructive pulmonary disease. I have ordered his p.r.n. nebs. We will continue his oxygen. 12. Hyperlipidemia. Continue statin therapy. 13. Chronic kidney disease with acute kidney injury. His creatinine is up from his baseline at 2.6. I will send off a FENa and hydrate him and we will try to avoid nephrotoxic agents. 14. Obstructive sleep apnea. He wears an oxygen at night, which I have ordered. 15. History of anxiety. Continue with p.r.n. Xanax. 16. Diabetes. He has been put on a lispro sliding scale and Lantus. 17. DVT prophylaxis. I have ordered heparin subcu. 18. Code status. He wishes to be a full code. 19. Fluids, electrolytes, and nutrition. I have ordered a consistent carb diet. TIME SPENT: Time spent on the admission 60 minutes, greater than half the time spent [id number] with the patient obtaining my history and physical; the other half time spent going over the plan of care with the patient and implementing plan of care. I did discuss the plan of care with my attending, Dr. Srinivasan; she is in agreement. AMARJIT HUYNH, MARIANNE [id number]/[facility] #: [id number] CAM
[2018-09-02] MEDS: Heparin VIAL(*) 5000 UNITS/ML VIAL (FIVE THOUSAND) SUBCUT SCH (21:29)
[2018-09-02] MEDS: Gabapentin CAP(*) 300 MG PO SCH (21:29)
[2018-09-03] MEDS: Heparin VIAL(*) 5000 UNITS/ML VIAL (FIVE THOUSAND) SUBCUT SCH ×3 (05:36→20:11)
[2018-09-03] MEDS: Levothyroxine TAB* 50 MCG TAB PO SCH (05:36)
[2018-09-03 07:27] LABS: ABS Basophils 0 10^3/ul (0-0.2); ABS Eosinophils 0.1 10^3/ul (0-0.6); ABS Monocytes 0.4 10^3/ul (0-0.8); ABS Neutrophils 5.2 10^3/ul (1.5-7.7); ABS Nucleated RBC 0 10^3/ul; Eosinophil % 1.1 % (0-6); Hematocrit 24 % (42-52); Lymphocyte % 14.6 % (25-47); Mean Corpuscular HGB Conc 33 g/dl (31-36); Mean Corpuscular Hemoglobin 31 pg (27-31); Mean Corpuscular Volume 92 fL (80-94); Mean Platelet Volume 7.4 fL (7.4-10.4); Nucleated Red Blood Cells % 0; Platelet Count 156 10^3/ul (150-450); Red Blood Count 2.61 10^6/ul (4.00-5.40); Red Cell Distribution Width 19 % (10.5-15); White Blood Count 6.7 10^3/ul (3.5-10.8)
[2018-09-03 07:32] LABS: INR 1.17 (0.77-1.02)
[2018-09-03] MEDS ORDERED: Perflutren Lipid Microsphere* 3 ML VIAL ONE (07:56)
[2018-09-03 08:16] LABS: EGFR Non-African American 23.2 (>60)
[2018-09-03] MEDS: Albuterol/Ipratropium RESP(NF) MDI (Combivent Respimat) INH SCH ×2 (08:23→20:14)
[2018-09-03] MEDS ORDERED: Aspirin EC TAB* 81 MG TAB.EC PO SCH (09:00)
[2018-09-03] MEDS: Insulin LISPRO* 1 UNITS UNIT SUBCUT SCH ×3 (09:11→16:49)
[2018-09-03] MEDS: Gabapentin CAP(*) 300 MG PO SCH ×2 (09:13→20:10)
[2018-09-03] MEDS: Isosorbide Mononitrate ER TAB* 60 MG PO SCH (09:13)
[2018-09-03] MEDS: Clopidogrel TAB* 75 MG PO SCH (09:13)
[2018-09-03] MEDS: Carvedilol TAB* 25 MG PO SCH ×2 (09:13→16:49)
[2018-09-03] MEDS: Multivitamins/Minerals TAB PO SCH (09:13)
[2018-09-03] MEDS: amLODIPine TAB* 5 MG PO SCH (09:13)
[2018-09-03] MEDS: CMCS Pantoprazole TAB (NF) 40 MG TAB PO SCH (09:18)
--- NOTE | 2018-09-03 11:15 | ECHO ---
Patient: MAURICE WEBER [facility] Rec#: [id number] : 1950 Date: 09/03/2018 Age: 68y Height: 165 cm / 65.0 in Weight: 113.4 kg / 249.9 lbs Sex: M BSA: 2.17 Room#: 433 Admit Date#: 09/02/2018 Type: Inpatient Referring: Amarjit Huynh NP Reading: Jaya Hansen MD Travel Nurse: Radha Sparks RDCS CC: Aditya Weston NP Transthoracic Echocardiogram Indication: Shortness of breath BP: 165/89 HR: 56 Rhythm: Bradycardia Findings History: DM, COPD, chemotherapy, RADU, stents, HTN, HLD, obesity, CHF, CVA, in remission for multiple myeloma. Technical Comments: The study is technically limited due to patient body habitus. Completed at 0845. Left Ventricle: The left ventricular chamber size is normal. Moderate concentric left ventricular hypertrophy is observed. Global left ventricular wall motion and contractility are within normal limits. There is normal left ventricular systolic function. The estimated ejection fraction is 55-60%. Abnormal left ventricular diastolic function is observed. Left Atrium: The left atrium is moderately dilated. Right Ventricle: Moderator Band present. The right ventricle is mildly dilated. The right ventricular global systolic function is low normal. Right Atrium: The right atrium is mildly dilated. Aortic Valve: The aortic valve is trileaflet. The aortic valve leaflets are mildly thickened. There is no evidence of aortic regurgitation. There is no evidence of aortic stenosis. Mitral Valve: There is mitral annular calcification. The mitral valve leaflets are moderately thickened. There is moderate mitral regurgitation. There is borderline mitral stenosis. Tricuspid Valve: The tricuspid valve leaflets are normal. There is trace tricuspid regurgitation. Unable to estimate the right ventricular systolic pressure. There is no tricuspid stenosis. Pulmonic Valve: The pulmonic valve appears normal. There is a trace pulmonic regurgitation. There is no pulmonic stenosis. Pericardium: There is no significant pericardial effusion. A pericardial fat pad is visualized. Aorta: There is mild dilatation of the ascending aorta.3.7 cm The aortic arch is not well visualized. There is mild dilatation of the aortic root. Pulmonary Artery: The main pulmonary artery is not well visualized. Venous: The inferior vena cava is dilated. There is a greater than 50% respiratory change in the inferior vena cava dimension. Contrast: Definity was used to optimize study. 3 mL of diluted Definity were utilized. Intravenous contrast was used to enhance endocardial border definition. Conclusions Moderate concentric left ventricular hypertrophy is observed. Global left ventricular wall motion and contractility are within normal limits. The estimated ejection fraction is 55-60%. There is no evidence of aortic stenosis. There is moderate mitral regurgitation. There is trace tricuspid regurgitation. Unable to estimate the right ventricular systolic pressure. There is no significant pericardial effusion. Compared to study of 05/22/18, the LV function is the same. The degree of MR is slightly worse Measurements Name Value Normal Range RVIDd (AP) 2D 3.6 cm (0.9 - 2.6) RVDdMajor (2D) 4.7 cm (2.2 - 4.4) RAd ISD 4CH 5.9 cm (3.4 - 4.9) RA (A4C)W 4.9 cm (2.9 - 4.6) IVSd (2D) 1.4 cm (0.6 - 1) LVPWd (2D) 1.3 cm (0.6 - 1) LVIDd (2D) 4.9 cm (3.6 - 5.4) LVIDs (2D) 3.9 cm - LV FS (2D) 20 % (25 - 45) Aortic Annulus 2.2 cm (1.4 - 2.6) Ao root diameter (2D) 3.6 cm (2.1 - 3.5) Ascending Ao 3.7 cm (2.1 - 3.4) LA dimension (AP) 2D 4.3 cm (2.3 - 3.8) LAd ISD 4CH 6.3 cm (2.9 - 5.3) LA ISD 4CH W 5.3 cm (2.5 - 4.5) Name Value Normal Range LA ESV BP (A/L) index 49 ml/m2 - Name Value Normal Range MV E-wave Vmax 1.3 m/sec - MV deceleration time 222 msec - MV A-wave Vmax 0.4 m/sec - MV E:A ratio 3.2 ratio - Name Value Normal Range AV Vmax 1.3 m/sec - AV VTI 26.8 cm - AV peak gradient 7 mmHg - AV mean gradient 4 mmHg - LVOT Vmax 1 m/sec - LVOT VTI 19.9 cm - LVOT peak gradient 4 mmHg - LVOT mean gradient 2 mmHg - Name Value Normal Range MR Vmax 4.65 m/sec - MR VTI 145 cm - MR flow (PISA) 60.4 ml/sec - MR ERO 0.13 cm2 - MR PISA radius 0.5 cm - MR alias Vmax 38.5 cm/sec - Name Value Normal Range IVC diameter 2.5 cm - Name Value Normal Range PV Vmax 1 m/sec - PV peak gradient 4 mmHg -
--- NOTE | 2018-09-03 15:53 | PN ---
Subjective Date of Service: 09/03/18 Interval History: Patient seen in this afternoon, He was sitting in the chair, He does have increase wheezing, no acute distress but audible wheezing and rales with minimal movement during the exam. No chest pain. he has not had a fever since admission Past Medical History: Unchanged from Admission Objective Active Medications: Acetaminophen (Tylenol Tab*) 650 mg PO Q4H PRN PRN Reason: FEVER/PAIN Last Admin: 09/02/18 18:22 Dose: 650 mg Albuterol (Ventolin 2.5 Mg/3 Ml Neb.Ronel*) 2.5 mg INH Q2H PRN PRN Reason: SOB/WHEEZING Albuterol/Ipratropium (Combivent Respimat(Nf)) 1 puff INH BID [facility]; Protocol Last Admin: 09/03/18 08:23 Dose: Not Given Alprazolam (Xanax Tab*) 0.25 mg PO BID PRN PRN Reason: ANXIETY Amlodipine Besylate (Norvasc Tab*) 5 mg PO DAILY [facility] Last Admin: 09/03/18 09:13 Dose: 5 mg Atorvastatin Calcium (Lipitor*) 80 mg PO 1700 [facility] Last Admin: 09/02/18 18:23 Dose: 80 mg Carvedilol (Coreg Tab*) 25 mg PO BID WITH MEALS [facility] Last Admin: 09/03/18 09:13 Dose: 25 mg Clopidogrel Bisulfate (Plavix Tab*) 75 mg PO DAILY [facility] Last Admin: 09/03/18 09:13 Dose: 75 mg Dextrose (D50w Syringe 50 Ml*) 12.5 gm IV PUSH .FOR FS < 60 - SS PRN PRN Reason: FS < 60 Furosemide (Lasix Tab*) 40 mg PO DAILY [facility] Gabapentin (Neurontin Cap(*)) 300 mg PO BID [facility] Last Admin: 09/03/18 09:13 Dose: 300 mg Heparin Sodium (Porcine) (Heparin Vial(*)) 5,000 units SUBCUT Q12HR [facility] Ceftriaxone Sodium 1 gm/ (Sodium Chloride) 50 mls @ 200 mls/hr IVPB Q24H [facility] Last Admin: 09/02/18 19:49 Dose: 200 mls/hr Azithromycin 500 mg/ Sodium (Chloride) 250 mls @ 250 mls/hr IVPB 1700 [facility] Last Admin: 09/02/18 18:21 Dose: 250 mls/hr Insulin Glargine (Lantus(*)) 60 units SUBCUT QPM [facility] Last Admin: 09/02/18 18:22 Dose: 60 units Insulin Human Lispro (Humalog*) 0 units SUBCUT AC [facility]; Protocol Last Admin: 09/03/18 12:12 Dose: 6 units Isosorbide Mononitrate (Imdur Er Tab*) 120 mg PO DAILY [facility] Last Admin: 09/03/18 09:13 Dose: 120 mg Levothyroxine Sodium (Synthroid Tab*) 50 mcg PO 0600 [facility] Last Admin: 09/03/18 05:36 Dose: 50 mcg Multivitamins/Minerals (Theragran/Minerals Tab*) 1 tab PO DAILY [facility] Last Admin: 09/03/18 09:13 Dose: 1 tab Oxycodone HCl (Roxycodone Tab*) 5 mg PO Q6H PRN PRN Reason: PAIN - BACK Pantoprazole Sodium (Protonix Tab (Nf)) 40 mg PO DAILY [facility] Last Admin: 09/03/18 09:18 Dose: 40 mg Vital Signs - 8 hr 09/03/18 09/03/18 09/03/18 08:00 09:13 13:26 Respiratory 20 18 18 Rate Oxygen Devices in Use Now: Nasal Cannula Appearance: Awake, Obese, no Acute distress. No fever at present time Eyes: No Scleral Icterus, - - EOMI Ears/Nose/Mouth/Throat: NL Teeth, Lips, Gums Neck: NL Appearance and Movements; NL JVP, Trachea Midline Respiratory: - - audible wheezing bilateral. diminished breath sound at bases bilateral Cardiovascular: NL Sounds; No Murmurs; No JVD, RRR, - - + 2 edema Abdominal: NL Sounds; No Tenderness; No Distention Extremities: - - + 2 edema Skin: No Rash or Ulcers Neurological: Alert and Oriented x 3 Result Diagrams: 09/03/18 06:44 09/03/18 06:44 Microbiology and Other Data: Microbiology 09/02/18 13:08 Aerobic Blood Culture - Preliminary Blood Venous No Growth Day 1 Anaerobic Blood Culture - Preliminary No Growth Day 1 09/02/18 13:09 Aerobic Blood Culture - Preliminary Blood Venous No Growth Day 1 Anaerobic Blood Culture - Preliminary No Growth Day 1 09/02/18 14:09 Legionella Urinary Antigen - Final Urine Negative Legionella Antigen Streptococcus pneumoniae Ag Screen - Final Negative S. pneumo Antigen 09/02/18 13:48 Influenza Types A,B Antigen - Final Nasal Specimen received for Influenza A/B Molecular testing Assess/Plan/Problems-Billing Assessment: 68 year old male presented for generalized malaise fatigue difficulty ambulating and was found to have fever 103.9 admitted for penumonaie and SIRS! - Patient Problems (1) Right middle lobe pneumonia Current Visit: Yes Status: Acute Code(s): J18.1 - LOBAR PNEUMONIA, UNSPECIFIED ORGANISM SNOMED Code(s): 273067902 Comment: - Community acquired - s/p Fever 103.9 - BC pending, improving on rocehpin and azithromycin Day # 1! Follow up final flu a serology and will order sputum culture and sensitivity. continue albuterol and will place on mucinex 600 mg bid - CT scan of chest could not rule out mass. Recommend repeat CT scan in a month to ensure resolution of the mass/consolidaiton given his underlying history of multiple myeloma (2) Anemia Current Visit: Yes Status: Acute Code(s): D64.9 - ANEMIA, UNSPECIFIED SNOMED Code(s): 806532039 Comment: - Acute on chronic (CKD & Mulitple Myeloma) in addtion to dual antiplatelet. - No active bleed I will check for stool OB - I did order for iron panel and B12, Folate - I did place a call to Dr. Stoddard covering for Dr. Loya. given his acute drop and know Multiple myeloma it would be appreciated to get the input from Hem/Onc if his anemia simply due to chonric illness versus progression of his MM, espescially with his CT chest finding (3) Chronic kidney disease (CKD) stage G4/A1, severely decreased glomerular filtration rate (GFR) between 15-29 mL/min/1.73 square meter and albuminuria creatinine ratio less than 30 mg/g Current Visit: Yes Status: Chronic Code(s): N18.4 - CHRONIC KIDNEY DISEASE, STAGE 4 (SEVERE) SNOMED Code(s): 646127729 Comment: - Acute on chronic. He follows with Dr. Craven. - His GFR today is 24. Classify for CKD-4 - It is probably secondary to diabetes and polypharmacy including cardiac meds. - Will monitor, however I do need to d/c fluid as he does show today mild sign of CHF given his fluid and diuretic on hold. I will resume his lasix and will alert Dr. Craven if any need for emergent dialysis. but for now will manage conservatively and avoid nephrotoxic drug that is not nesscarry. But I do feel the need to resume his diuretics (4) RADU (obstructive sleep apnea) Current Visit: No Status: Chronic Code(s): G47.33 - OBSTRUCTIVE SLEEP APNEA (ADULT) (PEDIATRIC) SNOMED Code(s): 68192502 Comment: - He does not use CPAP - Only O2 at night (5) Diastolic CHF, chronic Current Visit: Yes Status: Acute Code(s): I50.32 - CHRONIC DIASTOLIC ( CONGESTIVE) HEART FAILURE SNOMED Code(s): 158620331 Comment: - Will D/c IVF. Check BNP from ED and recheck in 2-3 days - I will resume lasix and d/c IVF - Continue his Coreg, - Echo done today shows EF 55%; Diastollic dysfunction and Moderate MR (6) Mitral regurgitation Current Visit: Yes Status: Chronic Comment: - Will D/c IVF. Check BNP from ED and recheck in 2-3 days - I will resume lasix and d/c IVF - Continue his Coreg, - Echo done today shows EF 55%; Diastollic dysfunction and Moderate MR (7) Depression with anxiety Current Visit: No Status: Acute Comment: - Continue xanax prn. Continue supportive care. (8) GERD (gastroesophageal reflux disease) Current Visit: No Status: Acute Code(s): K21.9 - GASTRO-ESOPHAGEAL REFLUX DISEASE WITHOUT ESOPHAGITIS SNOMED Code(s): 243221345 Comment: - Not on PPI will initiate protonix 40 mg daily given his anemia (9) HLD (hyperlipidemia) Current Visit: No Status: Acute Code(s): E78.5 - HYPERLIPIDEMIA, UNSPECIFIED SNOMED Code(s): 21501961 Comment: - Continue lipitor 80mg daily. (10) Multiple myeloma Current Visit: No Status: Acute Code(s): C90.00 - MULTIPLE MYELOMA NOT HAVING ACHIEVED REMISSION SNOMED Code(s): 686491012 Comment: - He follows with Dr Loya. - Left a message with Dr. Stoddard for consult given his anemia, CT finding. - Will not transfuse today, will reassess CBC in am, will type and screen with an labs but will not type and cross unless transfusion is required (11) CAD (coronary artery disease) Current Visit: No Status: Chronic Code(s): I25.10 - ATHSCL HEART DISEASE OF [place] CORONARY ARTERY W/O ANG PCTRS SNOMED Code(s): 14977783 Comment: - Given his anemnia, I did hold his aspirin, I kept him only on plavix. - I will continue his Coreg, statins, And isosorbide - Will need to verbally discuss with cardiology if patient will need to remain on both antiplatet therapy (and if not aspirin versus plavix alone) (12) HTN (hypertension) Current Visit: No Status: Chronic Code(s): I10 - ESSENTIAL (PRIMARY) HYPERTENSION SNOMED Code(s): 64500799 Comment: - Continue his home amlodipine, coreg, Imdur (13) Hypothyroidism Current Visit: No Status: Chronic Code(s): E03.9 - HYPOTHYROIDISM, UNSPECIFIED SNOMED Code(s): 30574699 Comment: - Continue home dose of synthroid - Chect TSH/FT4 in am (14) DVT prophylaxis Current Visit: No Status: Acute Code(s): MDM6359 - SNOMED Code(s): 192746340 Comment: - SQ heparin, decrease to Q12 given his anemia
[2018-09-03] MEDS: Furosemide TAB* 40 MG PO SCH (16:35)
[2018-09-03] MEDS: Atorvastatin* 80 MG TAB PO SCH (16:49)
[2018-09-03] MEDS: Azithromycin IV(*) 500 MG in NS 0.9% 250 ML* 250 ML IVPB SCH (17:04)
[2018-09-03] MEDS: Insulin GLARGINE(*) 1 UNITS UNIT SUBCUT SCH (18:02)
[2018-09-03] MEDS: cefTRIAXone(*) 1 GM in NS 0.9% 50 ML* 50 ML IVPB SCH (18:14)
[2018-09-03] MEDS: guaiFENesin ER TAB 600 MG PO SCH (20:10)
[2018-09-04 05:34] LABS: ABS Basophils 0 10^3/ul (0-0.2); ABS Eosinophils 0.2 10^3/ul (0-0.6); ABS Lymphocytes 1.3 10^3/ul (1.0-4.8); ABS Monocytes 0.6 10^3/ul (0-0.8); ABS Neutrophils 3.6 10^3/ul (1.5-7.7); ABS Nucleated RBC 0 10^3/ul; Eosinophil % 4.2 % (0-6); Hematocrit 23 % (42-52); Hemoglobin 7.8 g/dl (14.0-18.0); Lymphocyte % 22.2 % (25-47); Mean Corpuscular HGB Conc 34 g/dl (31-36); Mean Corpuscular Hemoglobin 31 pg (27-31); Mean Corpuscular Volume 91 fL (80-94); Nucleated Red Blood Cells % 0; Platelet Count 156 10^3/ul (150-450); Red Blood Count 2.52 10^6/ul (4.00-5.40); Red Cell Distribution Width 19 % (10.5-15); White Blood Count 5.8 10^3/ul (3.5-10.8)
[2018-09-04] MEDS: Levothyroxine TAB* 50 MCG TAB PO SCH (05:54)
[2018-09-04 05:59] LABS: EGFR Non-African American 21.2 (>60)
[2018-09-04] MEDS: Albuterol/Ipratropium RESP(NF) MDI (Combivent Respimat) INH SCH ×2 (07:16→20:00)
[2018-09-04] MEDS: Heparin VIAL(*) 5000 UNITS/ML VIAL (FIVE THOUSAND) SUBCUT SCH ×2 (08:26→20:26)
[2018-09-04] MEDS: Insulin LISPRO* 1 UNITS UNIT SUBCUT SCH ×3 (08:29→16:38)
[2018-09-04] MEDS: amLODIPine TAB* 5 MG PO SCH (08:31)
[2018-09-04] MEDS: Furosemide TAB* 40 MG PO SCH (08:31)
[2018-09-04] MEDS: Isosorbide Mononitrate ER TAB* 60 MG PO SCH (08:31)
[2018-09-04] MEDS: Gabapentin CAP(*) 300 MG PO SCH ×2 (08:32→20:26)
[2018-09-04] MEDS: Carvedilol TAB* 25 MG PO SCH ×2 (08:33→16:37)
[2018-09-04] MEDS: CMCS Pantoprazole TAB (NF) 40 MG TAB PO SCH (08:33)
[2018-09-04] MEDS: Clopidogrel TAB* 75 MG PO SCH (08:34)
[2018-09-04] MEDS: guaiFENesin ER TAB 600 MG PO SCH ×2 (08:35→20:27)
[2018-09-04] MEDS: Multivitamins/Minerals TAB PO SCH (08:35)
--- NOTE | 2018-09-04 11:15 | PN ---
Progress Note - Progress Note Date of Service: 09/04/18 SOAP: Subjective: []Admitted with SIRS 2/2 PNA. Onc. consult requested 2/2 anemia with hx. Multiple Myeloma. Mr. Loaiza was initially diagnosed in 2014 following incidental findings of lytic lesions after traumatic injury (05/2015). At that time he had an M.spike of 2.5cm IgG lambda with negative SFLC and a Beta-2 microglobulin of 4.28. At the time of diagnosis he had moderate renal insufficienty with Cr 1.52 and a GFR 46.4 (stage 3 renal insufficiency likely 2/2 DM type II). Bone marrow biopsy at that time revealed 17% plasma cells. He received induction therapy with CyBorD starting 09/2015 and had ASCT 03/04/16. Post transplant bone marrow biopsy day 80 with no evidence for myeloma and M-spike 0.5mg/dl. He was started on maintanence Revlimid 05/2016 however his course was complicated by acute neurological changes 11/2016 (negative work-up and followed by neurology) with Revlimid subsequently held, this was not restarted. He has since been stable from an oncologic standpoint, though his course has been complicated by a CVA in May. of this year. He was last seen by Dr. Loya (primary oncologist) on 07/23/18 at which time there was no indication for therapy and his anemia was being evaluated as 2/2 CRI or Iron def. Mr. Loaiza tells me up until this admission he has been feeling reasonably well. He has chronic intermittent back pain, most recently in the lower back L> R. He denies new areas of pain. He has normal UO and denies changes in his urine. He is followed by Dr. Craven for his CRI. He has chronic neuropathy in the feet R>L and tells me this might be a little worse in his great toes. He has no other areas of neuro changes. At this time he feels better than admission though is still coughing quite a bit. Medications: Acetaminophen (Tylenol Tab*) 650 mg PO Q4H PRN PRN Reason: FEVER/PAIN Last Admin: 09/02/18 18:22 Dose: 650 mg Albuterol (Ventolin 2.5 Mg/3 Ml Neb.Ronel*) 2.5 mg INH Q2H PRN PRN Reason: SOB/WHEEZING Albuterol/Ipratropium (Combivent Respimat(Nf)) 1 puff INH BID [facility]; Protocol Last Admin: 09/04/18 07:16 Dose: Not Given Alprazolam (Xanax Tab*) 0.25 mg PO BID PRN PRN Reason: ANXIETY Last Admin: 09/03/18 21:51 Dose: 0.25 mg Amlodipine Besylate (Norvasc Tab*) 5 mg PO DAILY [facility] Last Admin: 09/04/18 08:31 Dose: 5 mg Atorvastatin Calcium (Lipitor*) 80 mg PO 1700 [facility] Last Admin: 09/03/18 16:49 Dose: 80 mg Carvedilol (Coreg Tab*) 25 mg PO BID WITH MEALS [facility] Last Admin: 09/04/18 08:33 Dose: 25 mg Clopidogrel Bisulfate (Plavix Tab*) 75 mg PO DAILY [facility] Last Admin: 09/04/18 08:34 Dose: 75 mg Dextrose (D50w Syringe 50 Ml*) 12.5 gm IV PUSH .FOR FS < 60 - SS PRN PRN Reason: FS < 60 Furosemide (Lasix Tab*) 40 mg PO DAILY [facility] Last Admin: 09/04/18 08:31 Dose: 40 mg Gabapentin (Neurontin Cap(*)) 300 mg PO BID [facility] Last Admin: 09/04/18 08:32 Dose: 300 mg Guaifenesin (Mucinex*) 600 mg PO BID [facility] Last Admin: 09/04/18 08:35 Dose: 600 mg Heparin Sodium (Porcine) (Heparin Vial(*)) 5,000 units SUBCUT Q12HR [facility] Last Admin: 09/04/18 08:26 Dose: 5,000 units Ceftriaxone Sodium 1 gm/ (Sodium Chloride) 50 mls @ 200 mls/hr IVPB Q24H [facility] Last Admin: 09/03/18 18:14 Dose: 200 mls/hr Azithromycin 500 mg/ Sodium (Chloride) 250 mls @ 250 mls/hr IVPB 1700 [facility] Last Admin: 09/03/18 17:04 Dose: 250 mls/hr Insulin Glargine (Lantus(*)) 60 units SUBCUT QPM [facility] Last Admin: 09/03/18 18:02 Dose: 60 units Insulin Human Lispro (Humalog*) 0 units SUBCUT AC [facility]; Protocol Last Admin: 09/04/18 08:29 Dose: 2 units Isosorbide Mononitrate (Imdur Er Tab*) 120 mg PO DAILY [facility] Last Admin: 09/04/18 08:31 Dose: 120 mg Levothyroxine Sodium (Synthroid Tab*) 50 mcg PO 0600 [facility] Last Admin: 09/04/18 05:54 Dose: 50 mcg Multivitamins/Minerals (Theragran/Minerals Tab*) 1 tab PO DAILY [facility] Last Admin: 09/04/18 08:35 Dose: 1 tab Oxycodone HCl (Roxycodone Tab*) 5 mg PO Q6H PRN PRN Reason: PAIN - BACK Pantoprazole Sodium (Protonix Tab (Nf)) 40 mg PO DAILY [facility] Last Admin: 09/04/18 08:33 Dose: 40 mg Objective: [] Vital Signs Temp Pulse Resp BP Pulse Ox 98.4 F 73 22 133/72 97 09/04/18 03:37 09/04/18 04:38 09/04/18 08:32 09/04/18 03:37 09/04/18 04:38 A&Ox3, EOMI, FREY, good strength=bilat. HRR, S1S2 LS clear with harsh wet cough +BS, abd. soft and non-tender Obese Involved in plan of care Laboratory Tests 05/23/18 05/26/18 06/18/18 05:21 11:30 05:29 Hgb Hct MCV MCH MCHC RDW Creatinine 2.91 H Est GFR (Non-Af Amer) 21.7 Total Protein Ur Total Protein 24 Hr 8760 H D IgG 1120 [place] Light Chain 2.08 H Lambda Light Chain 4.37 H 06/19/18 08/29/18 09/02/18 05:28 09:19 13:09 Hgb 9.3 L 9.0 L Hct 27 L 27 L MCV MCH MCHC RDW Creatinine Est GFR (Non-Af Amer) Total Protein Ur Total Protein 24 Hr IgG 1650 H [place] Light Chain 2.81 H Lambda Light Chain 8.40 H 09/02/18 09/03/18 09/04/18 13:09 06:44 05:14 Hgb 8.0 L 7.8 L Hct 23 L MCV 91 MCH 31 MCHC 34 RDW 19 H Creatinine Est GFR (Non-Af Amer) Total Protein 6.9 Ur Total Protein 24 Hr IgG [place] Light Chain Lambda Light Chain 09/04/18 05:14 Hgb Hct MCV MCH MCHC RDW Creatinine 2.97 H Est GFR (Non-Af Amer) 21.2 Total Protein Ur Total Protein 24 Hr IgG [place] Light Chain Lambda Light Chain Assessment: []68 yo male with history of multiple myeloma admitted with severe PNA and found to have progressive anemia. At this time I believe there is a combination of causes, including his acute illness with positive fluid balance and likely CRI as a large factor. Plan: []1. PNA: management as per hospitalist 2. Anemia: normocytic, normochromatic - suspect 2/2 CRI - followed by nephrology and case discussed - consider epo as outpatient, however risk associated with thrombosis - no evidence for vitamin def., no replacement indicated - consider transfusion for hmg <7.5 d/t cardiac demand 3. CRI with proteinuria: appears chronic without clone on prior electrophoresis , repeat today - f/u with nephrology as outpatient 4. Multiple Myeloma: no clear indication for relapse on labs from 08/29 - check 24hr urine with UPEP, no roll for further imaging or bone marrow biopsy at this time
[2018-09-04] MEDS ORDERED: Furosemide IV* 10 MG/ML VIAL (40 MG) IV ONE (14:02)
[2018-09-04] MEDS: Atorvastatin* 80 MG TAB PO SCH (16:37)
[2018-09-04] MEDS: Insulin GLARGINE(*) 1 UNITS UNIT SUBCUT SCH (16:37)
--- NOTE | 2018-09-04 16:52 | PN ---
Subjective Date of Service: 09/04/18 Interval History: Mr. Loaiza is feeling much better today. His and sister are in the room with him and agree he is getting better. He has not been producing much sputum. He went for a walk in the hallway today without shortnes of breath. His fevers have reduced. Past Medical History: Unchanged from Admission Objective Active Medications: Acetaminophen (Tylenol Tab*) 650 mg PO Q4H PRN PRN Reason: FEVER/PAIN Last Admin: 09/02/18 18:22 Dose: 650 mg Albuterol (Ventolin 2.5 Mg/3 Ml Neb.Ronel*) 2.5 mg INH Q2H PRN PRN Reason: SOB/WHEEZING Albuterol/Ipratropium (Combivent Respimat(Nf)) 1 puff INH BID [facility]; Protocol Last Admin: 09/04/18 07:16 Dose: Not Given Alprazolam (Xanax Tab*) 0.25 mg PO BID PRN PRN Reason: ANXIETY Last Admin: 09/03/18 21:51 Dose: 0.25 mg Amlodipine Besylate (Norvasc Tab*) 5 mg PO DAILY [facility] Last Admin: 09/04/18 08:31 Dose: 5 mg Atorvastatin Calcium (Lipitor*) 80 mg PO 1700 [facility] Last Admin: 09/04/18 16:37 Dose: 80 mg Carvedilol (Coreg Tab*) 25 mg PO BID WITH MEALS [facility] Last Admin: 09/04/18 16:37 Dose: 25 mg Clopidogrel Bisulfate (Plavix Tab*) 75 mg PO DAILY [facility] Last Admin: 09/04/18 08:34 Dose: 75 mg Dextrose (D50w Syringe 50 Ml*) 12.5 gm IV PUSH .FOR FS < 60 - SS PRN PRN Reason: FS < 60 Furosemide (Lasix Tab*) 40 mg PO DAILY [facility] Last Admin: 09/04/18 08:31 Dose: 40 mg Gabapentin (Neurontin Cap(*)) 300 mg PO BID [facility] Last Admin: 09/04/18 08:32 Dose: 300 mg Guaifenesin (Mucinex*) 600 mg PO BID [facility] Last Admin: 09/04/18 08:35 Dose: 600 mg Heparin Sodium (Porcine) (Heparin Vial(*)) 5,000 units SUBCUT Q12HR [facility] Last Admin: 09/04/18 08:26 Dose: 5,000 units Ceftriaxone Sodium 1 gm/ (Sodium Chloride) 50 mls @ 200 mls/hr IVPB Q24H [facility] Last Admin: 09/03/18 18:14 Dose: 200 mls/hr Azithromycin 500 mg/ Sodium (Chloride) 250 mls @ 250 mls/hr IVPB 1700 [facility] Last Admin: 09/03/18 17:04 Dose: 250 mls/hr Insulin Glargine (Lantus(*)) 60 units SUBCUT QPM [facility] Last Admin: 09/04/18 16:37 Dose: 60 units Insulin Human Lispro (Humalog*) 0 units SUBCUT AC [facility]; Protocol Last Admin: 09/04/18 16:38 Dose: 6 units Isosorbide Mononitrate (Imdur Er Tab*) 120 mg PO DAILY [facility] Last Admin: 09/04/18 08:31 Dose: 120 mg Levothyroxine Sodium (Synthroid Tab*) 50 mcg PO 0600 [facility] Last Admin: 09/04/18 05:54 Dose: 50 mcg Multivitamins/Minerals (Theragran/Minerals Tab*) 1 tab PO DAILY [facility] Last Admin: 09/04/18 08:35 Dose: 1 tab Oxycodone HCl (Roxycodone Tab*) 5 mg PO Q6H PRN PRN Reason: PAIN - BACK Pantoprazole Sodium (Protonix Tab (Nf)) 40 mg PO DAILY [facility] Last Admin: 09/04/18 08:33 Dose: 40 mg Vital Signs - 8 hr 09/04/18 09/04/18 11:35 12:25 Temperature 97.6 F Pulse Rate 63 Respiratory 18 18 Rate Blood Pressure 128/58 (mmHg) O2 Sat by Pulse 97 Oximetry Oxygen Devices in Use Now: Nasal Cannula Appearance: alert, sitting up in chair, well appearing Eyes: No Scleral Icterus Ears/Nose/Mouth/Throat: NL Teeth, Lips, Gums Neck: NL Appearance and Movements; NL JVP Respiratory: Symmetrical Chest Expansion and Respiratory Effort, Clear to Auscultation Cardiovascular: NL Sounds; No Murmurs; No JVD, RRR Abdominal: NL Sounds; No Tenderness; No Distention Lymphatic: No Cervical Adenopathy Extremities: No Edema Skin: No Rash or Ulcers Neurological: Alert and Oriented x 3 Result Diagrams: 09/04/18 05:14 09/04/18 05:14 Microbiology and Other Data: Microbiology 09/02/18 13:08 Aerobic Blood Culture - Preliminary Blood Venous No Growth Day 1 Anaerobic Blood Culture - Preliminary No Growth Day 1 09/02/18 13:09 Aerobic Blood Culture - Preliminary Blood Venous No Growth Day 1 Anaerobic Blood Culture - Preliminary No Growth Day 1 09/02/18 14:09 Legionella Urinary Antigen - Final Urine Negative Legionella Antigen Streptococcus pneumoniae Ag Screen - Final Negative S. pneumo Antigen 09/02/18 13:48 Influenza Types A,B Antigen - Final Nasal Specimen received for Influenza A/B Molecular testing Assess/Plan/Problems-Billing Assessment: 68 year old male presented for generalized malaise fatigue difficulty ambulating and was found to have fever 103.9 admitted for pneumonia and SIRS - Patient Problems (1) Community acquired bacterial pneumonia Current Visit: Yes Status: Acute Code(s): J15.9 - UNSPECIFIED BACTERIAL PNEUMONIA SNOMED Code(s): 620329126 Comment: sputum culture pending need sputum culture prior to discharge given his immunocompromised status with myeloma (2) Acute on chronic diastolic (congestive) heart failure Current Visit: Yes Status: Acute Code(s): I50.33 - ACUTE ON CHRONIC DIASTOLIC (CONGESTIVE) HEART FAILURE SNOMED Code(s): 452116117 Comment: likely due to IVF given at admission for sepsis needs diuresis; IV lasix given today (3) Anemia Current Visit: Yes Status: Acute Code(s): D64.9 - ANEMIA, UNSPECIFIED SNOMED Code(s): 582440000 Comment: acute on chronic in setting of myeloma and CKD evaluated by oncology today who recommended nephrology evaluation (4) Multiple myeloma Current Visit: No Status: Acute Code(s): C90.00 - MULTIPLE MYELOMA NOT HAVING ACHIEVED REMISSION SNOMED Code(s): 596032909 Comment: - He follows with Dr Loya. - Left a message with Dr. Stoddard for consult given his anemia, CT finding. - Will not transfuse today, will reassess CBC in am, will type and screen with an labs but will not type and cross unless transfusion is required (5) CAD (coronary artery disease) Current Visit: No Status: Chronic Code(s): I25.10 - ATHSCL HEART DISEASE OF [place] CORONARY ARTERY W/O ANG PCTRS SNOMED Code(s): 42976344 Comment: asa held yesterday for anemia no evidence of bleeding so will resume (6) RADU (obstructive sleep apnea) Current Visit: No Status: Chronic Code(s): G47.33 - OBSTRUCTIVE SLEEP APNEA (ADULT) (PEDIATRIC) SNOMED Code(s): 41412035 Comment: - He does not use CPAP - Only O2 at night Status and Disposition: requires inpatient status awaiting culture results and ambulatory pulse ox
[2018-09-04] MEDS: Azithromycin IV(*) 500 MG in NS 0.9% 250 ML* 250 ML IVPB SCH (16:54)
[2018-09-04] MEDS: cefTRIAXone(*) 1 GM in NS 0.9% 50 ML* 50 ML IVPB SCH (18:00)
[2018-09-05] MEDS: Levothyroxine TAB* 50 MCG TAB PO SCH (05:22)
[2018-09-05 05:23] LABS: ABS Basophils 0 10^3/ul (0-0.2); ABS Eosinophils 0.3 10^3/ul (0-0.6); ABS Lymphocytes 1.3 10^3/ul (1.0-4.8); ABS Monocytes 0.5 10^3/ul (0-0.8); ABS Neutrophils 4.2 10^3/ul (1.5-7.7); ABS Nucleated RBC 0 10^3/ul; Eosinophil % 4.9 % (0-6); Hematocrit 24 % (42-52); Hemoglobin 8.1 g/dl (14.0-18.0); Mean Corpuscular HGB Conc 34 g/dl (31-36); Mean Corpuscular Hemoglobin 31 pg (27-31); Mean Corpuscular Volume 91 fL (80-94); Mean Platelet Volume 7.4 fL (7.4-10.4); Nucleated Red Blood Cells % 0; Platelet Count 177 10^3/ul (150-450); Red Blood Count 2.61 10^6/ul (4.00-5.40); Red Cell Distribution Width 19 % (10.5-15); White Blood Count 6.4 10^3/ul (3.5-10.8)
[2018-09-05] MEDS: Albuterol/Ipratropium RESP(NF) MDI (Combivent Respimat) INH SCH (08:00)
[2018-09-05] MEDS ORDERED: Aspirin EC TAB* 81 MG TAB.EC PO SCH (09:00)
[2018-09-05] MEDS ORDERED: Furosemide IV* 10 MG/ML VIAL (40 MG) IV ONE (09:20)
[2018-09-05] MEDS: Carvedilol TAB* 25 MG PO SCH (09:22)
[2018-09-05] MEDS: Clopidogrel TAB* 75 MG PO SCH (09:23)
[2018-09-05] MEDS: Gabapentin CAP(*) 300 MG PO SCH (09:23)
[2018-09-05] MEDS: guaiFENesin ER TAB 600 MG PO SCH (09:23)
[2018-09-05] MEDS: Isosorbide Mononitrate ER TAB* 60 MG PO SCH (09:23)
[2018-09-05] MEDS: amLODIPine TAB* 5 MG PO SCH (09:23)
[2018-09-05] MEDS: CMCS Pantoprazole TAB (NF) 40 MG TAB PO SCH (09:23)
[2018-09-05] MEDS: Heparin VIAL(*) 5000 UNITS/ML VIAL (FIVE THOUSAND) SUBCUT SCH (09:24)
[2018-09-05] MEDS: Multivitamins/Minerals TAB PO SCH (09:24)
[2018-09-05] MEDS: Insulin LISPRO* 1 UNITS UNIT SUBCUT SCH ×2 (09:24→12:32)
[2018-09-05] MEDS: Furosemide TAB* 40 MG PO SCH ×2 (09:24→09:58)
[2018-09-05 11:32] VITALS: BP 147/67
--- NOTE | 2018-09-06 14:40 | DS ---
CC: Aditya Weston NP; Dr. Loya * DISCHARGE SUMMARY: DATE OF ADMISSION: 09/02/18 DATE OF DISCHARGE: 09/05/18 PRINCIPAL DISCHARGE DIAGNOSIS: Community-acquired pneumonia. SECONDARY DISCHARGE DIAGNOSES: 1. Chronic kidney disease. 2. Multiple myeloma. 3. Diabetes mellitus. 4. Chronic diastolic heart failure. 5. History of cerebrovascular accident. 6. History of coronary artery disease. 7. Chronic obstructive pulmonary disease. 8. Obstructive sleep apnea. 9. Hyperlipidemia. 10. Anxiety. PHYSICAL EXAMINATION: At the time of discharge, temperature 98.9, heart rate 69 , respiratory rate 18, pulse ox 95% on room air, blood pressure 147/67. General : Alert, well appearing, nontoxic pleasant man sitting up in the chair, in no distress. HEENT: Pupils are equal, round, and reactive to light. Oral mucosa is moist. No exudates or erythema. Neck: No JVP. No cervical adenopathy. Chest: Regular rate and rhythm. No murmurs. Lungs clear bilaterally. Abdomen : Soft, nontender, nondistended. Extremities: 2+ edema bilaterally. HOSPITAL COURSE BY PROBLEM: 1. Community-acquired pneumonia. Mr. Loaiza was found to have an infiltrate on his chest x-ray and CT clinically clearly had pneumonia as well. He had productive sputum, fever, and was hypoxic at rest. He was treated with ceftriaxone and azithromycin. His sputum cultures returned only with yeast for culture and on the day of discharge. I attempted to send him home with renally dose of levofloxacin; however, Victorina' s did not have the dose so I am discharging him on Augmentin and azithromycin for 3 more days. He feels much better at the time of discharge and he has been walking around the hallways and ambulatory pulse ox revealed that his pulse ox was 95% on room air with ambulation. He does have oxygen at home and he has to continue to wear it at night. 2. Acute on chronic diastolic heart failure. He did receive some fluids at the time of admission and at the time of discharge, he has bilateral lower extremity swelling; however, he does not have any signs of pulmonary edema. So I am instructing him to double his home Lasix for the next 3 days that will be a dose of 80 mg daily and then return to his usual dose of 40 mg daily after that. 3. Multiple myeloma. He follows with Dr. Loya. His hemoglobin was slightly below baseline so Hematology was consulted and they believe it to be renal etiology and discussed the case with Nephrology, who will consider EPO or Aranesp. 4. CKD. Oncology ordered a 24-hour urine protein prior to discharge to be sure he does not have myeloma kidney. This is pending at the time of this dictation and will need to be followed up as an outpatient. 5. Abnormal CT scan. His CT showed a pneumonia versus mass. Clinically, he clearly had pneumonia; however, an underlying malignancy needs to be ruled out. I have explained the finding to both Mr. Loaiza and his and have asked that he will follow up with both his primary care physician and Dr. Loya to have a repeat CT ordered in 4 to 6 weeks. 6. Diabetes. He was continued on lispro 20 units t.i.d. with meals and Lantus 60 units daily. 7. Coronary artery disease. He was continued on Plavix and aspirin and atorvastatin. 8. Hypothyroidism. He was continued on levothyroxine. DISPOSITION: Mr. Loaiza was discharged to home on 09/05/18 with his and he is to follow up with Dr. Loya, Aditya Weston, and Dr. Craven. [id number]/[facility] #: [id number] [facility]
== END 2018-09-05 14:48 | disposition home or self-care (01) | DRG 720 ==
LOC: ED 12:11 → MEDTELE 15:57
PROVIDERS: ADMIT Internal Medicine; ATTEND Internal Medicine
DX: A41.9 Sepsis, unspecified organism (principal); J18.1 Lobar pneumonia, unspecified organism; I50.33 Acute on chronic diastolic (congestive) heart failure; N17.9 Acute kidney failure, unspecified; N18.4 Chronic kidney disease, stage 4 (severe); I13.0 Hypertensive heart and chronic kidney disease with heart failure and stage 1 through stage 4 chronic kidney disease, or unspecified chronic kidney disease; Z68.41 Body mass index [BMI] 40.0-44.9, adult; J44.0 Chronic obstructive pulmonary disease with (acute) lower respiratory infection; C90.01 Multiple myeloma in remission; I25.10 Atherosclerotic heart disease of native coronary artery without angina pectoris; K21.9 Gastro-esophageal reflux disease without esophagitis; E03.9 Hypothyroidism, unspecified; G47.33 Obstructive sleep apnea (adult) (pediatric); F41.9 Anxiety disorder, unspecified; R93.89 Abnormal findings on diagnostic imaging of other specified body structures; F40.240 Claustrophobia; D63.1 Anemia in chronic kidney disease; E78.5 Hyperlipidemia, unspecified; M19.012 Primary osteoarthritis, left shoulder; E11.40 Type 2 diabetes mellitus with diabetic neuropathy, unspecified; F32.9 Major depressive disorder, single episode, unspecified; R09.02 Hypoxemia; I34.0 Nonrheumatic mitral (valve) insufficiency; G89.29 Other chronic pain; E11.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mellitus with diabetic chronic kidney disease; E66.9 Obesity, unspecified; M54.5 Low back pain; Z86.73 Personal history of transient ischemic attack (TIA), and cerebral infarction without residual deficits; Z85.820 Personal history of malignant melanoma of skin; Z95.5 Presence of coronary angioplasty implant and graft; Z88.1 Allergy status to other antibiotic agents; Z84.1 Family history of disorders of kidney and ureter; Z83.3 Family history of diabetes mellitus; Z82.49 Family history of ischemic heart disease and other diseases of the circulatory system; Z87.891 Personal history of nicotine dependence; Z85.89 Personal history of malignant neoplasm of other organs and systems; Z95.9 Presence of cardiac and vascular implant and graft, unspecified; Z87.442 Personal history of urinary calculi; Z98.42 Cataract extraction status, left eye; Z98.41 Cataract extraction status, right eye; Z92.21 Personal history of antineoplastic chemotherapy; Z99.81 Dependence on supplemental oxygen; Z82.0 Family history of epilepsy and other diseases of the nervous system
CPT/HCPCS: 36415; 71045; 71250; 80048; 80053; 81003; 81015; 82272; 82570; 82607; 82728; 82746; 83540; 83550; 83605; 83735; 83880; 84100; 84156; 84300; 84439; 84443; 84484; 85025; 85610; 85730; 86140; 86850; 86900; 86901; 87040; 87070; 87205; 87899; 93005; 93306; 99233; 99283; A9270-GY; C8929; G8978-GP-CI; G8979-GP-CI; G8980-GP-CI; J0456; J0696; J1644; J1940

== ENCOUNTER 2019-02-24 06:35 | Emergency (ER) | payer BC, MEDICARE ==
[2019-02-24] MEDS ORDERED: Albuterol/Ipratropium NEB.SOL* Albuterol 2.5 MG/Ipratropium 0.5 MG 3 ML INH ONE (07:22)
[2019-02-24] MEDS ORDERED: methylPREDNISolone 125 MG* 2 ML VIAL IV ONE (07:23)
[2019-02-24 07:45] LABS: ABS Eosinophils 0.1 10^3/ul (0-0.6); ABS Lymphocytes 2.3 10^3/ul (1.0-4.8); ABS Monocytes 0.7 10^3/ul (0-0.8); ABS Neutrophils 10.2 10^3/ul (1.5-7.7); Eosinophil % 0.4 %; Hematocrit 29 % (42-52); Hemoglobin 9.6 g/dL (14.0-18.0); Lymphocyte % 17.2 %; Mean Corpuscular HGB Conc 33 g/dL (31-36); Mean Corpuscular Hemoglobin 30 pg (27-31); Mean Corpuscular Volume 92 fL (80-94); Mean Platelet Volume 7.4 fL (7.4-10.4); Platelet Count 194 10^3/uL (150-450); Red Blood Count 3.16 10^6 /uL (4.18-5.48); Red Cell Distribution Width 21 % (10.5-15); White Blood Count 13.2 10^3/uL (3.5-10.8)
[2019-02-24 08:04] LABS: Troponin I 0.02 ng/mL (<0.04)
[2019-02-24 08:07] LABS: Albumin 3.8 g/dL (3.2-5.2); Albumin/Globulin Ratio 1.1 (1-3); BUN/Creatinine Ratio 24.6 (8-20); C Reactive Protein 2.29 mg/L (<8.01); Calcium 9.2 mg/dL (8.6-10.3); EGFR African American 30.9 (>60); EGFR Non-African American 25.6 (>60); Globulin 3.5 g/dL (2-4); Potassium 3.9 mmol/L (3.5-5.0); Total Bilirubin 0.5 mg/dL (0.2-1.0); Total Protein 7.3 g/dL (6.4-8.9)
[2019-02-24 10:19] VITALS: BP 148/93
--- NOTE | 2019-02-24 17:09 | ED ---
Shortness of Breath - HPI Summary HPI Summary: Patient is a 68-year-old male who presents emergency department for ongoing cough several months. Patient has a history of COPD, CHF, diabetes, high blood pressure. Patient states he saw his family doctor last week and finished a course of doxycycline and prednisone. Patient states his cough still per cyst and presents for evaluation. Patient denies chest pain. He wears oxygen at home at night and not during the day. He denies abdominal pain, vomiting, diarrhea, urinary symptoms. Symptoms are moderate in severity. Activity makes symptoms worse. Rest makes symptoms better. - History of Current Complaint Chief Complaint: EDShortnessOfBreath Time Seen by Provider: 02/24/19 07:00 Hx Obtained From: Patient - Allergy/Home Medications Allergies/Adverse Reactions: Allergies Allergy/AdvReac Type Severity Reaction Status Date / Time amoxicillin Allergy Diarrhea Verified 02/24/19 06:50 clavulanic acid Allergy Dizziness Verified 02/24/19 06:50 PMH/Surg Hx/FS Hx/Imm Hx Previously Healthy: Yes Endocrine/Hematology History: Reports: Hx Bone Marrow Disease - Multiple myeloma , Hx Diabetes, Hx Thyroid Disease - on medication, Hx Anemia - history of, not recent, Other Endocrine/Hematological Disorders Cardiovascular History: Reports: Hx Angina - unstable angina, Hx Coronary Artery Disease - 3 cardiac stents, 2010 & 2012, Hx Hypercholesterolemia, Hx Hypertension - ON MEDS, Other Cardiovascular Problems/Disorders - hyperlipidemia , CVA 05/08 Denies: Hx Cardiac Arrest, Hx Myocardial Infarction, Hx Pacemaker/ICD, Hx Valvular Heart Disease Respiratory History: Reports: Hx Asthma - possible, Hx Chronic Obstructive Pulmonary Disease (COPD), Hx Seasonal Allergies, Hx Sleep Apnea - Oxygen 3 liters at night. Denies: Hx Pulmonary Edema, Other Respiratory Problems/Disorders GI History: Reports: Hx Gastroesophageal Reflux Disease - on medication, Other GI Disorders - PANCREATITIS History: Reports: Hx Kidney Stones - history of, 3, Other Problems/ Disorders - benign growth on L kidney-follows with Dr Posey Denies: Hx Renal Disease Musculoskeletal History: Reports: Hx Arthritis - left shoulder, Hx Back Problems - arthritis, Hx Tendonitis - right elbow, Other Musculoskeletal History - Right hand thumb and pinky trigger fingers Sensory History: Reports: Hx Cataracts - 2007 Bilateral, Hx Contacts or Glasses - reading Denies: Hx Hearing Aid Opthamlomology History: Reports: Hx Cataracts - 2008 Bilateral, Hx Contacts or Glasses - reading Neurological History: Reports: Hx Headaches, Hx Nerve Disease - Neuropathy bilateral feet, hx of carpal tunnel right wrist, Other Neuro Impairments/ Disorders - numbness R hand, Rehman's palsy 2008, balance issues, hx of tremors. 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 MULTIPLE Myeloma Hx Chemotherapy: Yes - Surgical History Surgery Procedure, Year, and Place: CAD - HEART STENT - 09/2013 -3X. Carpal tunnel/trigger finger surgery-BILATERAL HANDS. Cataracts-BILATERAL. Rt AXILLA DISSECTION - REMOVED melonama-1977. Stem Cell Transplant, [facility] February 2016. Carpal tunnel Hx Anesthesia Reactions: No - Immunization History Date of Tetanus Vaccine: Unk Date of Influenza Vaccine: Fall 2012 Infectious Disease History: No Infectious Disease History: Reports: Hx Shingles - 10/2015 Denies: Hx Clostridium Difficile, Hx Hepatitis, Hx Human Immunodeficiency Virus (HIV), Hx of Known/Suspected MRSA, Hx Tuberculosis, Hx Known/Suspected VRE , Hx Known/Suspected VRSA, History Other Infectious Disease, Traveled Outside the in Last 30 Days - Family History Known Family History: Positive: Cardiac Disease, Diabetes - Social History Occupation: Retired Lives: With Family Alcohol Use: Weekly Alcohol Amount: 1-2 beers a week Substance Use Type: Reports: None Hx Tobacco Use: Yes Smoking Status (MU): Former Smoker Type: Cigarettes Amount Used/How Often: CIGARS AND PIPE 1-3 TIMES A WEEK WHILE GOLFING Length of Time of Smoking/Using Tobacco: went form about 1pck/d Cigarettes,to pipe occ cigar. Have You Smoked in the Last Year: No Review of Systems Constitutional: Negative Negative: Fever, Chills Eyes: Negative ENT: Negative Cardiovascular: Negative Negative: Palpitations, Chest Pain Positive: Shortness Of Breath, Cough Gastrointestinal: Negative Negative: Abdominal Pain, Vomiting, Diarrhea Genitourinary: Negative Skin: Negative Neurological: Negative All Other Systems Reviewed And Are Negative: Yes Physical Exam Triage Information Reviewed: Yes Vital Signs On Initial Exam: Initial Vitals Temp Pulse Resp BP Pulse Ox 98.7 F 62 19 179/84 96 02/24/19 06:42 02/24/19 06:42 02/24/19 06:42 02/24/19 06:42 02/24/19 06:42 Vital Signs Reviewed: Yes Appearance: Positive: Well-Appearing - Pt. sitting up in bed in NAD. Breathing easily on RA. Skin: Positive: Warm, Dry Head/Face: Positive: Normal Head/Face Inspection Eyes: Positive: Normal, EOMI Neck: Positive: Supple Respiratory/Lung Sounds: Positive: Other - Diminished breath sounds in bases.. Negative: Stridor, Tracheal Deviation, Unable to speak in full sentences, Fatigue Cardiovascular: Positive: Normal, RRR Abdomen Description: Positive: Nontender, Soft Musculoskeletal: Positive: Normal, Strength/ROM Intact. Negative: Edema Left, Edema Right Neurological: Positive: Normal, Alert, Oriented to Person Place, Time, CN Intact II-III Psychiatric: Positive: Affect/Mood Appropriate Diagnostics - Vital Signs Vital Signs Temp Pulse Resp BP Pulse Ox 02/24/19 10:17 97.5 F 61 18 148/93 95 02/24/19 10:15 148/93 02/24/19 10:00 59 97 02/24/19 09:48 57 145/66 92 02/24/19 09:18 61 164/76 92 02/24/19 09:00 61 93 02/24/19 08:48 67 121/64 95 02/24/19 08:18 58 134/63 90 02/24/19 08:00 62 98 02/24/19 07:23 58 12 100 02/24/19 07:18 65 16 150/76 98 02/24/19 07:00 66 27 91 02/24/19 06:48 61 18 179/84 97 02/24/19 06:46 9 02/24/19 06:42 98.7 F 62 19 179/84 96 - Laboratory Lab Results: Lab Results 02/24/19 02/24/19 02/24/19 Range/Units 07:32 07:32 07:32 WBC 13.2 H (3.5-10.8) 10^3/uL RBC 3.16 L (4.18-5.48) 10^6 /uL Hgb 9.6 L (14.0-18.0) g/dL Hct 29 L (42-52) % MCV 92 (80-94) fL MCH 30 (27-31) pg MCHC 33 (31-36) g/dL RDW 21 H (10.5-15) % Plt Count 194 (150-450) 10^3/uL MPV 7.4 (7.4-10.4) fL Neut % (Auto) 76.7 % Lymph % (Auto) 17.2 % Mcdonald % (Auto) 5.5 % Eos % (Auto) 0.4 % Baso % (Auto) 0.2 % Absolute Neuts (auto) 10.2 H (1.5-7.7) 10^3/ul Absolute Lymphs (auto) 2.3 (1.0-4.8) 10^3/ul Absolute Monos (auto) 0.7 (0-0.8) 10^3/ul Absolute Eos (auto) 0.1 (0-0.6) 10^3/ul Absolute Basos (auto) 0.0 (0-0.2) 10^3/ul Absolute Nucleated RBC 0.0 10^3/ul Nucleated RBC % 0.0 Sodium 137 (135-145) mmol/L Potassium 3.9 (3.5-5.0) mmol/L Chloride 105 (101-111) mmol/L Carbon Dioxide 25 (22-32) mmol/L Anion Gap 7 (2-11) mmol/L BUN 62 H (6-24) mg/dL Creatinine 2.52 H (0.67-1.17) mg/dL Est GFR ( Amer) 30.9 (>60) Est GFR (Non-Af Amer) 25.6 (>60) BUN/Creatinine Ratio 24.6 H (8-20) Glucose 131 H (70-100) mg/dL POC Glucose (mg/dL) (70-100) mg/dL Lactic Acid 1.4 (0.5-2.0) mmol/L Calcium 9.2 (8.6-10.3) mg/dL Total Bilirubin 0.50 (0.2-1.0) mg/dL AST 14 (13-39) U/L ALT 24 (7-52) U/L Alkaline Phosphatase 74 (34-104) U/L Troponin I 0.02 (<0.04) ng/mL C-Reactive Protein 2.29 (<8.01) mg/L B-Natriuretic Peptide (<=100) pg/mL Total Protein 7.3 (6.4-8.9) g/dL Albumin 3.8 (3.2-5.2) g/dL Globulin 3.5 (2-4) g/dL Albumin/Globulin Ratio 1.1 (1-3) 02/24/19 02/24/19 02/24/19 Range/Units 07:32 09:29 09:32 WBC (3.5-10.8) 10^3/uL RBC (4.18-5.48) 10^6 /uL Hgb (14.0-18.0) g/dL Hct (42-52) % MCV (80-94) fL MCH (27-31) pg MCHC (31-36) g/dL RDW (10.5-15) % Plt Count (150-450) 10^3/uL MPV (7.4-10.4) fL Neut % (Auto) % Lymph % (Auto) % Mcdonald % (Auto) % Eos % (Auto) % Baso % (Auto) % Absolute Neuts (auto) (1.5-7.7) 10^3/ul Absolute Lymphs (auto) (1.0-4.8) 10^3/ul Absolute Monos (auto) (0-0.8) 10^3/ul Absolute Eos (auto) (0-0.6) 10^3/ul Absolute Basos (auto) (0-0.2) 10^3/ul Absolute Nucleated RBC 10^3/ul Nucleated RBC % Sodium (135-145) mmol/L Potassium (3.5-5.0) mmol/L Chloride (101-111) mmol/L Carbon Dioxide (22-32) mmol/L Anion Gap (2-11) mmol/L BUN (6-24) mg/dL Creatinine (0.67-1.17) mg/dL Est GFR ( Amer) (>60) Est GFR (Non-Af Amer) (>60) BUN/Creatinine Ratio (8-20) Glucose (70-100) mg/dL POC Glucose (mg/dL) 59 L 64 L (70-100) mg/dL Lactic Acid (0.5-2.0) mmol/L Calcium (8.6-10.3) mg/dL Total Bilirubin (0.2-1.0) mg/dL AST (13-39) U/L ALT (7-52) U/L Alkaline Phosphatase (34-104) U/L Troponin I (<0.04) ng/mL C-Reactive Protein (<8.01) mg/L B-Natriuretic Peptide 384 H (<=100) pg/mL Total Protein (6.4-8.9) g/dL Albumin (3.2-5.2) g/dL Globulin (2-4) g/dL Albumin/Globulin Ratio (1-3) Result Diagrams: 02/24/19 07:32 02/24/19 07:32 Lab Statement: Any lab studies that have been ordered have been reviewed, and results considered in the medical decision making process. Course/Dx - Course Course Of Treatment: Patient presenting with ongoing cough. He is afebrile. Oxygen saturation is 96% on room air which is normal. The patient a DuoNeb treatment, dose of sinus Medrol and check labs chest x-ray. ECG done at 718 shows a sinus rhythm of 67bpm, normal axis, no ST elevation or depression. Labs shows leukocytosis of 13, could be secondary to recent prednisone. Chronic anemia and CKD. BNP 384. Negative troponin. CXR shows COPD without infiltrate or acute findings, per radiology. On re-exam pt. is resting comfortably and moving air better. Pt. was ambulated on RA and O2 saturation stayed 93% and above on RA and pt. did two laps around the ER. Pt. would like to be dc home at this time. Will hold off on antibx and another course of steroids at this time. To see PCP in 1-2 days. Will return to ER if sxs change or worsen. Pt. understands and agrees with plan. - Diagnoses Differential Diagnosis/HQI/PQRI: Positive: Bronchitis, CHF, COPD Exacerbation, MT, Pneumonia, Pneumothorax Provider Diagnoses: COPD (chronic obstructive pulmonary disease) Discharge - Sign-Out/Discharge Documenting (check all that apply): Patient Departure Patient Received Moderate/Deep Sedation with Procedure: No - Discharge Plan Condition: Improved Disposition: HOME Patient Education Materials: COPD (Chronic Obstructive Pulmonary Disease) (ED) Referrals: Aditya Weston FIELD CARE COORDINATOR [Primary Care Provider] - Additional Instructions: Call PCP today for a close follow up appointment Continue medications as directed Return to ER if symptoms change or worsen - Billing Disposition and Condition Condition: IMPROVED Disposition: Home
== END 2019-02-24 10:17 | disposition home or self-care (01) ==
LOC: ED 06:35
DX: J44.9 Chronic obstructive pulmonary disease, unspecified (principal); I10 Essential (primary) hypertension; E11.9 Type 2 diabetes mellitus without complications; E07.9 Disorder of thyroid, unspecified; I25.10 Atherosclerotic heart disease of native coronary artery without angina pectoris; E78.00 Pure hypercholesterolemia, unspecified; E78.5 Hyperlipidemia, unspecified; K21.9 Gastro-esophageal reflux disease without esophagitis; G62.9 Polyneuropathy, unspecified; Z88.3 Allergy status to other anti-infective agents; Z79.899 Other long term (current) drug therapy; Z85.89 Personal history of malignant neoplasm of other organs and systems; Z95.5 Presence of coronary angioplasty implant and graft; Z86.73 Personal history of transient ischemic attack (TIA), and cerebral infarction without residual deficits; Z85.820 Personal history of malignant melanoma of skin; Z87.891 Personal history of nicotine dependence
CPT/HCPCS: 36415; 71046; 80053; 83605; 83880; 84484; 85025; 86140; 87040; 93005; 96374; 99283; A9270-GY; J2930

== ENCOUNTER 2019-07-27 12:35 | Inpatient (IN) | payer BC ==
[2019-07-27] MEDS ORDERED: NS 0.9% 1000 ML** 1,000 ML IV ONE (12:37)
--- OUTSIDE RECORDS SUMMARY | 2019-07-27 12:49 | XMS REPORT | Continuity of Care Document ---
:1950 External Reference #:[id number] Author Name Marquita Campbell MD (transmitted by agent of provider Nupur [place]) Address [address] [place] [address] Care Team Providers Name Role Phone Aditya Weston NP - Family Care Team Information [facility] [phone] Paul Humphreys MD - Plastic and Care Team Information [facility] Reconstructive Surgery Problems Active Problems Provider Date Coronary arteriosclerosis Jacqueline Garg D.O. Onset: 09/27/2011 Chest pain Jacqueline Garg D.O. Onset: 02/26/2012 Hyperlipidemia Brianda Butcher N.P. Onset: 06/04/2012 Benign essential hypertension Brianda Butcher N.P. Onset: 06/04/2012 Coronary arteriosclerosis Jacqueline Garg D.O. Onset: 10/30/2012 Angina decubitus Jacqueline Garg D.O. Onset: 09/15/2013 Essential hypertension Jimmie Malone M.D., [facility], [facility] Onset: 11/28/2013 Chronic ischemic heart disease Jimmie Malone M.D., [facility], [facility] Onset: 2013 Radiation injury Jimmie Malone M.D., [facility], [facility] Onset: 11/28/2013 Tremor Andreia Finn M.D. Onset: 03/26/2015 Headache Andreia Finn M.D. Onset: 03/26/2015 Essential hypertension Jimmie Malone M.D., [facility], [facility] Onset: 07/14/2015 Chronic ischemic heart disease, [facility].D., [facility] Onset: 2014 unspecified Carpal tunnel syndrome of right Andreia Finn M.D. Onset: 08/10/2016 wrist Facial palsy Andreia Finn M.D. Onset: 12/14/2016 Snapping thumb syndrome Jericho Herr MD Onset: 08/14/2017 Acquired trigger finger Jericho Herr MD Onset: 08/14/2017 Angina pectoris Jimmie Malone M.D., [facility] Onset: 09/05/2017 Lateral epicondylitis Jericho Herr MD Onset: 09/18/2017 Atherosclerotic heart disease of Jimmie Malone M.D., [facility] Onset: 2016 knik coronary artery with other forms of angina pectoris Preoperative cardiovascular Jimmie Malone M.D., [facility] Onset: 01/09/2018 examination Polyneuropathy Jude Ramos M.D. Onset: 02/22/2018 Abnormal gait Jude Ramos M.D. Onset: 02/22/2018 Nervous system symptoms Jude Ramos M.D. Onset: 02/22/2018 Chronic fatigue syndrome Jude Ramos M.D. Onset: 02/22/2018 Atherosclerotic heart disease of Jimmie Malone M.D., [facility] Onset: 2017 knik coronary artery with unspecified angina pectoris Type 2 diabetes mellitus Jude Ramos M.D. Onset: 06/04/2018 Cerebrovascular disease Jude Ramos M.D. Onset: 06/04/2018 Cerebral artery occlusion Jude Ramos M.D. Onset: 06/04/2018 Multiple myeloma Jude Ramos M.D. Onset: 09/09/2018 Other specified abnormal findings of Luana Witt.Ariel Onset: 09/02/2018 blood chemistry Gastroesophageal reflux disease Harsha Huynh N.P. Onset: 09/02/2018 Social History Type Date Description Comments Sex Unknown ETOH Use Rarely consumes alcohol Tobacco Use Start: Unknown End: Patient is a former Quit 4 years ago. Unknown smoker Used to smoke cigarettes then pipe then cigars. Recreational Drug Use Denies Drug Use Smoking Status Reviewed: 07/18/19 Patient is a former Quit 4 years ago. smoker Used to smoke cigarettes then pipe then cigars. Allergies, Adverse Reactions, Alerts Active Allergies Reaction Severity Comments Date Augmentin diarrhea 09/04/2016 Inactive Allergies NKDA 01/27/2011 Medications Active Medications SIG Qnty Indications Ordering Date Provider Torsemide 2 tabs po daily 30tabs N18.4 Marquita 02/27/2019 20mg Tablets for 5 days and MD Adrian then 1 tab po q daily Lantus Solostar inject 60 units 30ml Armin Loja MD 06/27/2018 in at night 100Unit/ML Solution Pen-Inject Pen [place] 1 each with every 200units E11.9 Armin Loja MD 06/27/2018 31G X 6 mm insulin injection [facility] [place], [place] Diabetic Shoes 1 pair of 1units E11.9 Armin Loja MD 06/27/2018 [facility] [place], [place] diabetic shoes for daily use Freestyle place 1 sensor 3units E11.8 Armin Loja MD 06/27/2018 Jamie/Sensor/Flash every 10 days Monitoring System [facility] [place] [place] Freestyle use every 8 hours 1units Armin Loja MD 06/27/2018 Jamie/[place]/Flash with sensor Monitoring System Device Amlodipine Besylate 1 by mouth every 30tabs I10 Jimmie Malone, 09/05/2017 5mg day M.D., FACC, Tablets FSCAI Isosorbide 1 by mouth every 90tabs Agusto SPaul 10/28/2014 Mononitrate ER day DO FACC 120mg Tablets ER 24HR Prevacid one a day Unknown Symbicort 1 puff twice a Unknown day 160-4.5mcg/Act Aerosol Albuterol Sulfate 1 unit dose via Unknown nebulizer every 4 (2.5mg/3ML) 0.083% hours as needed Nebulizer Humalog Fabricio 20 units before Unknown Kwikpen meals 3 times 100Unit/ML daily, + sliding Solution Pen-Inject scale- max 100 units daily Levothyroxine Sodium 1 tab by mouth Unknown once daily 75mcg Tablets Multi-Vitamins take one tablet Unknown Tablets by mouth every day (supplement) Atorvastatin Calcium 1 by mouth every 90tabs Agusto SPaul day Cruz, DO FACC 80mg Tablets Carvedilol 1 tab by mouth 90tabs Agusto S. 25mg Tablets twice a day Cruz, DO FACC Clopidogrel Bisulfate once daily [place], MD Juan 75mg Tablets Lidocaine appy to as needed Unknown 5% Patch places Ventolin HFA inhale one puff Unknown every 4 to 6 108(90Base) mcg/Act hours as needed Aerosol Nitroglycerin 1 sl q5mins x3 as 30tabs Agusto S. 0.4mg needed for chest Cruz, DO FACC Tablets Sub pain Alprazolam half tab to one Unknown 0.5mg tablet twice a Tablets day as needed Vitamin D High 2 by mouth every Unknown Potency day 2000Units Capsules Gabapentin 1 am and 1 hs Unknown 300mg Capsules Triamcinolone apply to affected 15gm Unknown Acetonide In area sparingly Absorbase daily prn 0.05% Ointment Oxygen qhs Unknown 4Liters/Min Medications Administered in Office Medication SIG Qnty Indications Ordering Provider Date Celestone 3 mg and 3mg Jericho Herr MD 04/12/2018 Injection Celestone 3 mg and 3mg Jericho Herr MD 09/18/2017 Injection Celestone 3 mg and 3mg Jericho Herr MD 09/18/2017 Injection Celestone 3 mg and 3mg Jericho Herr MD 08/14/2017 Injection Celestone 3 mg and 3mg Jericho Herr MD 08/14/[address] 80[address] 03/19/2015 Injection Celestone 3 mg and 3mg Norberto Roy M.D. 12/25/2014 Injection Depomedrol 80MG Norberto Roy M.D. 10/27/2014 Injection Depomedrol 80MG Norberto Roy M.D. 05/23/2012 Injection Depomedrol 40MG Norberto Roy M.D. 09/21/2011 Injection Immunizations Description No Information Available Vital Signs Date Vital Result Comment 07/18/2019 1:49pm Height 65 inches 5'5" Weight 250.00 lb Heart Rate 70 /min BP Systolic Sitting 114 mmHg left arm sitting large cuff BP Diastolic Sitting 51 mmHg left arm sitting large cuff O2 % BldC Oximetry 93 % room air BMI (Body Mass Index) 41.6 kg/m2 04/29/2019 9:56am Height 65 inches 5'5" Weight 250.00 lb with shoes Heart Rate 70 /min BP Systolic Sitting 140 mmHg lue reg cuff BP Diastolic Sitting 68 mmHg lue reg cuff BP Systolic Standing 134 mmHg lue reg cuff BP Diastolic Standing 68 mmHg lue reg cuff Respiratory Rate 14 /min BMI (Body Mass Index) 41.6 kg/m2 Ejection Fraction 55-60% echo.09/03/18 Results Test Date Facility Test Result H/L Range Note Laboratory test 04/23/2019 [facility] TSH (Thyroid 1.22 Normal 0.34-5.[address] Stim Horm) mcIU/[place] [address] [phone] Basic Metabolic 04/23/2019 [facility] Sodium 137 mmol/L Normal 135-145 Panel [address] [place] [address] [phone] Potassium 4.2 mmol/L Normal 3.5-5.0 Chloride 105 mmol/L Normal 101-111 Co2 Carbon Dioxide 26 mmol/L Normal 22-32 Anion Gap 6 mmol/L Normal 2-11 Glucose 126 mg/dL High 70-100 Blood Urea Nitrogen 36 mg/dL High 6-24 Creatinine 2.60 mg/dL High 0.67-1.17 BUN/Creatinine Ratio 13.8 Normal 8-20 Calcium 8.5 mg/dL Low 8.6-10.3 Egfr Non- 24.7 >60 Egfr 29.9 >60 1 Laboratory test 04/23/2019 [facility] Hemoglobin A1c 7.7 % High 4.0-5.[address] (Glyco HGB) [place] [address] [phone] Fructosamine 237 mcmol/L 200 - 285 3 CBC Auto 03/01/2019 [facility] White Blood 7.2 10^3/uL Normal 3.5-10.[address] [place] [address] [phone] Red Blood Count 3.20 10^6/uL Low 4.18-5.48 Hemoglobin 10.0 g/dL Low 14.0-18.0 Hematocrit 30 % Low 42-52 Mean Corpuscular Volume 94 fL Normal 80-94 Mean Corpuscular Hemoglobin 31 pg Normal 27-31 Mean Corpuscular HGB Conc 33 g/dL Normal 31-36 Red Cell Distribution Width 21 % High 10.5-15 Platelet Count 147 10^3/uL Low 150-450 Mean Platelet Volume 7.6 fL Normal 7.4-10.4 Abs Neutrophils 4.6 10^3/uL Normal 1.5-7.7 Abs Lymphocytes 1.6 10^3/uL Normal 1.0-4.8 Abs Monocytes 0.8 10^3/uL Normal 0-0.8 Abs Eosinophils 0.1 10^3/uL Normal 0-0.6 Abs Basophils 0.0 10^3/uL Normal 0-0.2 Abs Nucleated RBC 0.0 10^3/uL Granulocyte % 63.5 % Lymphocyte % 22.9 % Monocyte % 11.2 % Eosinophil % 2.1 % Basophil % 0.3 % Nucleated Red Blood Cells % 0.0 Comp Metabolic 03/01/2019 [facility] Sodium 135 mmol/L Normal 135-[address] [place] [address] [phone] Potassium 4.3 mmol/L Normal 3.5-5.0 Chloride 100 mmol/L Low 101-111 Co2 Carbon Dioxide 28 mmol/L Normal 22-32 Anion Gap 7 mmol/L Normal 2-11 Glucose 182 mg/dL High 70-100 Blood Urea Nitrogen 39 mg/dL High 6-24 Creatinine 2.53 mg/dL High 0.67-1.17 BUN/Creatinine Ratio 15.4 Normal 8-20 Calcium 8.4 mg/dL Low 8.6-10.3 Total Protein 6.3 g/dL Low 6.4-8.9 Albumin 3.2 g/dL Normal 3.2-5.2 Globulin 3.1 g/dL Normal 2-4 Albumin/Globulin Ratio 1.0 Normal 1-3 Total Bilirubin 0.70 mg/dL Normal 0.2-1.0 Alkaline Phosphatase 57 U/L Normal 34-104 Alt 19 U/L Normal 7-52 Ast 15 U/L Normal 13-39 Egfr Non- 25.5 >60 Egfr 30.8 >60 4 Total Protein 24HR 03/01/2019 [facility] Urine Collection Time 24 hr Urine [address] [place] [address] [phone] Urine Total Volume 2600 mL 5 Urine TP Concentration 174 mg/dL Urine Total Protein/24HR 4524 mg/24Hr High 0-165 Laboratory 03/01/2019 [facility] Immunoglobulin G 2140 Abnormal 767 - [address] (Igg) mg/dL 1590 [place], [place] [id number] [phone] Immunoglobulin M (Igm) 28 mg/dL Abnormal 37 - 286 7 Immunoglobulin A (Iga) 71 mg/dL 61 - 356 8 [place]/Lambda Free 03/01/2019 [facility] [place] Free 2.29 mg/dL Abnormal [address] [place] [address] [phone] Lambda Free Light Chain 7.49 mg/dL Abnormal 10 [place]/Lambda Free Light Chain 0.3057 11 Protein 03/01/2019 [facility] Total 6.6 g/dL 6.3 - Electrophoresis 101 Protein(Pep) 7.9 [place] [address] [phone] Albumin 3.0 g/dL Abnormal 3.4-4.7 Alpha-1 Globulin 0.2 g/dL 0.1-0.3 Alpha-2 Globulin 0.9 g/dL 0.6-1.0 Beta Globulin 0.8 g/dL 0.7-1.2 Gamma Globulin 1.7 g/dL Abnormal 0.6-1.6 Albumin/Globulin Ratio 0.84 M Fercho 1.5 g/dL Impression See Comment 12 Laboratory 03/01/2019 [facility] Miscellaneous See Comment [address] [place] [address] [phone] CBC Auto Diff 02/17/2019 [facility] White Blood Count 7.4 10^3/ uL Normal 3.5- [address] 10.8 [place] [address] [phone] Red Blood Count 2.87 10^6/uL Low 4.18-5.48 Hemoglobin 8.9 g/dL Low 14.0-18.0 Hematocrit 27 % Low 36-46 Mean Corpuscular Volume 93 fL Normal 80-94 Mean Corpuscular Hemoglobin 31 pg Normal 27-31 Mean Corpuscular HGB Conc 34 g/dL Normal 31-36 Red Cell Distribution Width 21 % High 10.5-15 Platelet Count 186 10^3/uL Normal 150-450 Mean Platelet Volume 7.4 fL Normal 7.4-10.4 Abs Neutrophils 5.3 10^3/uL Normal 1.5-7.7 Abs Lymphocytes 1.5 10^3/uL Normal 1.0-4.8 Abs Monocytes 0.4 10^3/uL Normal 0-0.8 Abs Eosinophils 0.2 10^3/uL Normal 0-0.6 Abs Basophils 0 10^3/uL Normal 0-0.2 Abs Nucleated RBC 0 10^3/uL Granulocyte % 71.6 % Lymphocyte % 19.9 % Monocyte % 5.8 % Eosinophil % 2.3 % Basophil % 0.4 % Nucleated Red Blood Cells % 0 Basic Metabolic 02/17/2019 [facility] Sodium 136 mmol/L Normal 135-145 Panel [address] [place] [address] [phone] Potassium 3.9 mmol/L Normal 3.5-5.0 Chloride 105 mmol/L Normal 101-111 Co2 Carbon Dioxide 26 mmol/L Normal 22-32 Anion Gap 5 mmol/L Normal 2-11 Glucose 52 mg/dL Low 70-100 Blood Urea Nitrogen 43 mg/dL High 6-24 Creatinine 2.69 mg/dL High 0.67-1.17 BUN/Creatinine Ratio 16.0 Normal 8-20 Egfr Non- 23.7 >60 Egfr 28.7 >60 14 Laboratory test 02/17/2019 [facility] Creatinine Random 37.23 mg /dL finding [address] [place] [address] [phone] Urine Microalbumin 02/17/2019 [facility] Urine Creatinine 37.23 mg/dL Random [address] [place] [address] [phone] Ur Microalbumin (mg/L) 721.8 mg/L Urine Microalbumin/Creatinine 1938.7 High <31 Laboratory test 02/17/2019 [facility] Total Protein 116 mg/dL finding [address] [place] [place] [address] [phone] Calcium 9.2 mg/dL Normal 8.6-10.3 Phosphorus 3.6 mg/dL Normal 2.5-5.0 Magnesium 1.9 mg/dL Normal 1.9-2.7 Basic Metabolic 01/22/2019 [facility] Sodium 138 mmol/L Normal 135-145 Panel [address] [place] [address] [phone] Potassium 4.0 mmol/L Normal 3.5-5.0 Chloride 106 mmol/L Normal 101-111 Co2 Carbon Dioxide 28 mmol/L Normal 22-32 Anion Gap 4 mmol/L Normal 2-11 Glucose 60 mg/dL Low 70-100 Blood Urea Nitrogen 40 mg/dL High 6-24 Creatinine 2.13 mg/dL High 0.67-1.17 BUN/Creatinine Ratio 18.8 Normal 8-20 Calcium 8.8 mg/dL Normal 8.6-10.3 Egfr Non- 31.1 >60 Egfr 37.6 >60 15 Laboratory test 01/22/2019 [facility] Hemoglobin A1c 7.5 % High 4.0-5.6 16 [address] [place], [place] [id number] [phone] 1 Because ethnic data is not always [...] 5 Kidney failure <15 (or dialysis) 2 Therapeutic target for the treatment of diabetes mellitus patients is <7% HBA1C, and in selective patients <6.0%. Please refer to [place] [employer] diabetic care guidelines for further information. 3 Test Performed by: [address] [address] 4 Because ethnic data is not always [...] 5 Kidney failure <15 (or dialysis) 5 CORRECTED REPORT --- Corrected on 03/01/19 1403 --- Total Volume previously reported as: 1550 mL 6 Test Performed by: [place] [address] 7 Test Performed by: [place] [address] 8 Test Performed by: [place] [address] 9 REFERENCE VALUE 0.3300-1.94 10 REFERENCE VALUE 0.5700-2.63 11 REFERENCE VALUE 0.2600-1.65 Test Performed by: [place] [address] 12 M-spike in gamma fraction. Size of monoclonal protein not changed significantly since 11/01/2018. Test Performed by: [place] [address] 13 Test Result Flag Unit RefValue Quant Free [place]/Lambda Light Chains Hours Collected 24 hr Total Volume 2600 mL Total Protein 2958 H mg/d 10-140 INTERPRETIVE INFORMATION: Total Protein Total urinary protein is determined nephelometrically by adding the albumin and [place] and/or Lambda light chains. This value may not agree with the total protein as determined by chemical methods, which characteristically underestimate urinary light chains. Albumin, Urine Detected Detected Alpha-1, Urine Detected REFERENCE VALUE None Detected Alpha-2, Urine Detected REFERENCE VALUE None Detected Urine Beta Globulin Detected REFERENCE VALUE None Detected Gamma, Urine Detected REFERENCE VALUE None Detected Free Urinary [place] 11.20 H mg/dL 0.14-2.42 Light Chains Free Urinary [place] 291.20 mg/d Excretion/Day Free Urinary Lambda 4.78 H mg/dL 0.02-0.67 Light Chain Free Urinary Lambda 124.28 mg/d Excretion/Day Free Urinary 2.34 ratio 2.04-10.37 [place]/Lambda Ratio Performed by [facility], [address] [place] [id number] [email or web address], Willie Polanco MD - Lab. Director JOY Interpretation See Note Urine is POSITIVE for monoclonal Free Lambda Light chains (Bence Hutchison Protein). Urine JOY shows a monoclonal IgG heavy chain with associated lambda light chain and excess monoclonal free lambda light chains. Test Performed by: [facility] [address] [place] [address] 14 Because ethnic data is not always [...] 5 Kidney failure <15 (or dialysis) 16 Therapeutic target for the treatment of diabetes mellitus patients is <7% HBA1C, and in selective patients <6.0%. Please refer to [place] [employer] diabetic care guidelines for further information. 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 C90.01 Multiple myeloma in remission N18.9 Chronic kidney disease, unspecified J44.9 Chronic obstructive pulmonary disease, unspecified D64.9 Anemia, unspecified E66.8 Other obesity E11.69 Type 2 diabetes mellitus with other specified complication I63.9 Cerebral infarction, unspecified I10 Essential (primary) hypertension E78.5 Hyperlipidemia, unspecified G47.33 Obstructive sleep apnea (adult) (pediatric) I25.10 Athscl heart disease of knik coronary artery w/o ang pctrs Office Visit 04/23/2019 11:00a [facility] Armin Loja, E11.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[facility] mellitus w diabetic chronic kidney disease N18.4 Chronic kidney disease, stage 4 (severe) Z79.4 detention (current) use of insulin Office Visit 02/27/2019 11:30a [facility]phrology Marquita Campbell N18.4 Chronic kidney MD disease, stage 4 (severe) C90.01 Multiple myeloma in remission I12.9 Hypertensive chronic kidney disease w stg 1-4/unsp chr kdny Office Visit 01/22/2019 9:00a [facility] Armin Loja, 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[facility] mellitus w diabetic chronic kidney disease Z79.4 detention (current) use of insulin N18.4 Chronic kidney disease, stage 4 (severe) J44.1 Chronic obstructive pulmonary disease w (acute) exacerbation Assessments Date Code Description Provider 07/18/2019 C90.02 Multiple myeloma in relapse Marquita Campbell MD 07/18/2019 D64.9 Anemia, unspecified Marquita Campbell MD 07/18/2019 N18.4 Chronic kidney disease, stage 4 (severe) Marquita Campbell MD 04/29/2019 I50.32 Chronic diastolic (congestive) heart Agusto Cruz DO FACC failure 04/29/2019 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.4 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 Agusto Cruz DO FACC 04/29/2019 C90.01 Multiple myeloma in remission Agusto Cruz DO FACC 04/29/2019 N18.9 Chronic kidney disease, unspecified Agusto Cruz DO FAC 04/29/2019 J44.9 Chronic obstructive pulmonary disease, Agusto Cruz, DO [facility] unspecified 04/29/2019 D64.9 Anemia, unspecified Agusto Cruz, DO FAC 04/29/2019 E66.8 Other obesity Agusto Cruz, DO FAC 04/29/2019 E11.69 Type 2 diabetes mellitus with other Agusto Cruz, DO [facility] specified complication 04/29/2019 I63.9 Cerebral infarction, unspecified Agusto Cruz, DO FAC 04/29/2019 I10 Essential (primary) hypertension Agusto Cruz, DO FAC 04/29/2019 E78.5 Hyperlipidemia, unspecified Agusto Cruz, DO [facility] 04/29/2019 G47.33 Obstructive sleep apnea (adult) Agusto Cruz, DO [facility] (pediatric) 04/29/2019 I25.10 Atherosclerotic heart disease of knik Agusto Cruz, DO [facility] coronary artery with 04/23/2019 E11.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mellitus with david Loja MD chronic kidney diseas 04/23/2019 N18.4 Chronic kidney disease, stage 4 (severe) Armin Loja MD 04/23/2019 Z79.4 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 Armin Loja MD 02/27/2019 N18.4 Chronic kidney disease, stage 4 (severe) Marquita Campbell MD 02/27/2019 C90.01 Multiple myeloma in remission Marquita Campbell MD 02/27/2019 I12.9 Hypertensive chronic kidney disease w stg Marquita Campbell MD 1-4/unsp chr kdny 01/22/2019 E11.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mellitus w david Loja MD chronic kidney disease 01/22/2019 Z79.4 detention (current) use of insulin Armin Loja MD 01/22/2019 N18.4 Chronic kidney disease, stage 4 (severe) Armin Loja MD 01/22/2019 J44.1 Chronic obstructive pulmonary disease with Armin Loja MD (acute) exacerbat Plan of Treatment Future Appointment(s):09/16/2019 1:00 pm - Narinder Ruiz MD at [facility] Bugthvchsr18/27/2019 - Marquita Campbell, [facility].02 Multiple myeloma in vsveswnJ85.9 Anemia, wturtrwvoewB13.4 Chronic kidney disease, stage 4 (severe) Functional Status Description No Information Available Mental Status Description No Information Available Referrals Description No Information Available
--- OUTSIDE RECORDS SUMMARY | 2019-07-27 12:49 | XMS REPORT | Continuity of Care Document ---
:1950 External Reference #:[id number] Author Name Armin Loja MD (transmitted by agent of provider Mildred Saunders) Address [address] [place] [id number] Care Team Providers Name Role Phone Aditya Weston NP - Family Care Team Information Public Address System Mechanic [phone] Paul Humphreys MD - Plastic and Care Team Information Public Address System Mechanic Reconstructive Surgery Problems Active Problems Provider Date Coronary arteriosclerosis Jacqueline Garg D.O. Onset: 09/27/2011 Chest pain Jacqueline Garg D.O. Onset: 02/26/2012 Hyperlipidemia Brianda Butcher NRoyal Onset: 06/04/2012 Benign essential hypertension Brianda Butcher N.P. Onset: 06/04/2012 Coronary arteriosclerosis Jacqueline Garg D.O. Onset: 10/30/2012 Angina decubitus Jacqueline Garg D.O. Onset: 09/15/2013 Essential hypertension Jimmie Malone M.D., [facility] Onset: 11/28/2013 Chronic ischemic heart disease Jimmie Malone M.D., [facility] Onset: 2013 Radiation injury Jimmie Malone M.D., [facility] Onset: 11/28/2013 Tremor Andreia Finn M.D. Onset: 03/26/2015 Headache Andreia Finn M.D. Onset: 03/26/2015 Essential hypertension Jimmie Malone M.D., [facility] Onset: 07/14/2015 Chronic ischemic heart disease, Jimmie Malone M.D., [facility] Onset: 2014 unspecified Carpal tunnel syndrome of right Andreia Finn M.D. Onset: 08/10/2016 wrist Facial palsy Andreia Finn M.D. Onset: 12/14/2016 Snapping thumb syndrome Jericho Herr MD Onset: 08/14/2017 Acquired trigger finger Jericho Herr MD Onset: 08/14/2017 Angina pectoris Jimmie Malone M.D., [facility] Onset: 09/05/2017 Lateral epicondylitis Jericho Herr MD Onset: 09/18/2017 Atherosclerotic heart disease of Jimmie Malone M.D., [facility] Onset: 2016 [place] coronary artery with other forms of angina pectoris Preoperative cardiovascular Jimmie Malone M.D., [facility] Onset: 01/09/2018 examination Polyneuropathy Jude Ramos M.D. Onset: 02/22/2018 Abnormal gait Jude Ramos M.D. Onset: 02/22/2018 Nervous system symptoms Jude Ramos M.D. Onset: 02/22/2018 Chronic fatigue syndrome Jude Ramos M.D. Onset: 02/22/2018 Atherosclerotic heart disease of Jimmie Malone M.D., [facility] Onset: 2017 [place] coronary artery with unspecified angina pectoris Type [...] Use Denies Drug Use Smoking Status Reviewed: 07/24/19 Patient is a former Quit 4 years [...] in at night 100Unit/ML Solution Pen-Inject Pen [place] 1 each with every 200units E11.9 Armin Loja MD 06/27/2018 31G X 6 mm insulin injection [facility] Diabetic Shoes 1 pair of 1units E11.9 Armin Loja MD 06/27/2018 [facility] diabetic shoes for daily use Freestyle place 1 sensor 3units E11.8 Armin Loja MD 06/27/2018 Jamie/Sensor/Flash every 10 days Monitoring System [facility] Freestyle use every 8 hours 1units Armin Loja MD 06/27/2018 Jamie/[facility]/Flash with sensor Monitoring System Device Amlodipine Besylate 1 by mouth every 30tabs I10 Jimmie Malone, 09/05/2017 5mg day M.D., FACC, Tablets FSCAI Isosorbide 1 by mouth every 90tabs Agusto S. 10/28/2014 Mononitrate ER day Cruz, DO FACC 120mg Tablets ER 24HR Prevacid one a day Unknown Symbicort 1 puff twice a Unknown day 160-4.5mcg/Act Aerosol Albuterol Sulfate 1 unit dose via Unknown nebulizer every 4 (2.5mg/3ML) 0.083% hours as needed Nebulizer Humalog Kwikpen 20 units with Unknown meals,MDD 100 100Unit/ML Solution units Pen-Inject Levothyroxine Sodium 1 tab by mouth Unknown once daily 75mcg Tablets Multi-Vitamins take one tablet Unknown Tablets by mouth every day (supplement) Atorvastatin Calcium 1 by mouth every 90tabs Agusto S. day Cruz, DO FACC 80mg Tablets Carvedilol [...] MD 08/14/2017 Injection Celestone 3 mg and elging Jericho Herr MD 08/14/[address] 03/19/2015 Injection Celestone 3 mg and 3mg Norberto Roy M.D. 12/25/2014 Injection Depomedrol 80MG Norberto Roy M.D. 10/27/2014 Injection Depomedrol 80MG Norberto Roy M.D. 05/23/2012 Injection Depomedrol 40MG Norberto Roy M.D. 09/21/2011 Injection Immunizations Description No Information Available Vital Signs Date Vital Result Comment 07/24/2019 11:35am Height 65 inches 5'5" Weight 254.00 lb w/ shoes Heart Rate 66 /min BP Systolic Sitting 152 mmHg BP Diastolic Sitting 77 mmHg BMI (Body Mass Index) 42.3 kg/m2 07/18/2019 1:49pm Height 65 inches 5'5" Weight 250.00 lb Heart Rate 70 /min BP Systolic Sitting 114 mmHg left arm sitting large cuff BP Diastolic Sitting 51 mmHg left arm sitting large cuff O2 % BldC Oximetry 93 % room air BMI (Body Mass Index) 41.6 kg/m2 Results Test Date Facility Test Result H/L Range Note Laboratory test 04/23/2019 [facility] Hemoglobin A1c 7.7 % High 4.0-5.6 1 finding (Glyco HGB) [place] [address] [phone] Fructosamine 237 mcmol/L 200 - 285 2 Basic Metabolic 04/23/2019 [facility] Sodium 137 mmol/L Normal 135-145 [place] [address] [phone] Potassium 4.2 mmol/L Normal 3.5-5.0 Chloride 105 mmol/L Normal 101-111 Co2 Carbon Dioxide 26 mmol/L Normal 22-32 Anion Gap 6 mmol/L Normal 2-11 Glucose 126 mg/dL High 70-100 Blood Urea Nitrogen 36 mg/dL High 6-24 Creatinine 2.60 mg/dL High 0.67-1.17 BUN/Creatinine Ratio 13.8 Normal 8-20 Calcium 8.5 mg/dL Low 8.6-10.3 Egfr Non- 24.7 >60 Egfr 29.9 >60 3 Laboratory 04/23/2019 [facility] TSH (Thyroid 1.22 Normal 0.34 -5.[address] Stim Horm) mcIU/[place] [address] [phone] CBC Auto Diff 03/01/2019 [facility] White Blood 7.2 10^3/uL Normal 3.5-10.[address] [place] [address] [phone] Red Blood Count 3.20 10^6/uL Low 4.18-5.48 [...] Blood Cells % 0.0 Comp Metabolic 03/01/2019 [facility] Sodium 135 mmol/L Normal 135-[address] [place] [address] [phone] Potassium 4.3 mmol/L Normal 3.5-5.0 Chloride 100 [...] 30.8 >60 4 Total Protein 24HR 03/01/2019 [facility] Urine Collection Time [address] [place] [address] [phone] Urine Total Volume 2600 mL 5 Urine TP Concentration 174 mg/dL Urine Total Protein/24HR 4524 mg/24Hr High 0-165 Laboratory 03/01/2019 [facility] Immunoglobulin G 2140 Abnormal 767 - 6 test finding 101 (Igg) mg/dL [address] [place] [address] [phone] Immunoglobulin M (Igm) 28 mg/dL Abnormal 37 - 286 7 Immunoglobulin A (Iga) 71 mg/dL 61 - 356 8 [place]/Lambda Free 03/01/2019 [facility] [place] Free 2.29 mg/dL Abnormal 9 Light Chains Ser [address] [place] [address] [phone] Lambda Free Light Chain 7.49 mg/dL Abnormal 10 [place]/Lambda Free Light Chain 0.3057 11 Protein 03/01/2019 [facility] Total 6.6 g/dL 6.3 - Electrophoresis 101 Protein(Pep) 7.9 [place] [address] [phone] Albumin 3.0 g/dL Abnormal 3.4-4.7 Alpha-1 Globulin 0.2 g/dL 0.1-0.3 Alpha-2 Globulin 0.9 g/dL 0.6-1.0 Beta Globulin 0.8 g/dL 0.7-1.2 Gamma Globulin 1.7 g/dL Abnormal 0.6-1.6 Albumin/Globulin Ratio 0.84 M Fercho 1.5 g/dL Impression See Comment 12 Laboratory 03/01/2019 [facility] Miscellaneous See Comment 13 test finding [address] [place] [address] [phone] CBC Auto Diff 02/17/2019 [facility] White Blood Count 7.4 10^3/ uL Normal 3.5- [address] 10.8 [place] [address] [phone] Red Blood Count 2.87 10^6/uL Low 4.18-5.48 [...] Blood Cells % 0 Basic Metabolic 02/17/2019 [facility] Sodium 136 mmol/L Normal 135-[address] [place] [address] [phone] Potassium 3.9 mmol/L Normal 3.5-5.0 Chloride 105 mmol/L Normal 101-111 Co2 Carbon Dioxide 26 mmol/L Normal 22-32 Anion Gap 5 mmol/L Normal 2-11 Glucose 52 mg/dL Low 70-100 Blood Urea Nitrogen 43 mg/dL High 6-24 Creatinine 2.69 mg/dL High 0.67-1.17 BUN/Creatinine Ratio 16.0 Normal 8-20 Egfr Non- 23.7 >60 Egfr 28.7 >60 14 Laboratory test 02/17/2019 [facility] Creatinine Random 37.23 mg /dL finding [address] [place] [address] [phone] Urine Microalbumin 02/17/2019 [facility] Urine Creatinine 37.23 mg/dL Random [address] [place], [place] [address] [phone] Ur Microalbumin (mg/L) 721.8 mg/L Urine Microalbumin/Creatinine 1938.7 High <31 Laboratory test 02/17/2019 [facility] Total Protein 116 mg/dL finding [address] [place] [address] [phone] Calcium 9.2 mg/dL Normal 8.6-10.3 Phosphorus 3.6 mg/dL Normal 2.5-5.0 Magnesium 1.9 mg/dL Normal 1.9-2.7 1 Therapeutic target for the treatment of diabetes mellitus patients is <7% HBA1C, and in selective patients <6.0%. Please refer to [place] [employer] diabetic care guidelines for further information. 2 Test Performed by: [address] [address] 3 Because ethnic data is not always readily [...] 15-29 5 Kidney failure <15 (or dialysis) 4 Because ethnic data is not always [...] as: 1550 mL 6 Test Performed by: [facility] Periscope [facility] [place] [address] 7 Test Performed by: [facility] [place] [address] 8 Test Performed by: [facility] [place] [address] 9 REFERENCE VALUE 0.3300-1.94 10 REFERENCE VALUE 0.5700-2.63 11 REFERENCE VALUE 0.2600-1.65 Test Performed by: [facility] [place] [address] 12 M-spike in gamma fraction. Size of monoclonal protein not changed significantly since 11/01/2018. Test Performed by: [facility] [place] [address] 13 Test Result Flag Unit RefValue Quant Free [place]/Lambda Light Chains Hours Collected 24 hr Total Volume 2600 mL Total Protein 2958 H mg/d 10-140 INTERPRETIVE INFORMATION: Total Protein Total urinary protein is determined nephelometrically by adding the albumin and [place] and/or Lambda light chains. This value may not agree with the total protein as determined by chemical methods, which characteristically underestimate urinary light chains. Albumin, Urine Detected Detected Alpha-1, Urine Detected REFERENCE VALUE None Detected Alpha-2, Urine Detected REFERENCE VALUE None Detected Urine Beta Globulin Detected REFERENCE VALUE None Detected Gamma, Urine Detected REFERENCE VALUE None Detected Free Urinary [place] 11.20 H mg/dL 0.14-2.42 Light Chains Free Urinary [place] 291.20 mg/d Excretion/Day Free Urinary Lambda 4.78 H mg/dL 0.02-0.67 Light Chain Free Urinary Lambda 124.28 mg/d Excretion/Day Free Urinary 2.34 ratio 2.04-10.37 [place]/Lambda Ratio Performed by [facility], [address] [place] [id number] [email or web address], Willie Polanco MD - Lab. Director JOY Interpretation See Note Urine is POSITIVE for monoclonal Free Lambda Light chains (Bence Hutchison Protein). Urine JOY shows a monoclonal IgG heavy chain with associated lambda light chain and excess monoclonal free lambda light chains. Test Performed by: [facility] [address] [place] [address] 14 Because ethnic data is not always [...] 15-29 5 Kidney failure <15 (or dialysis) Procedures Date Code Description Status 04/29/2019 45091 EKG Tracing & Interpretation Completed 02/13/2018 [id number] Colonoscopy Completed Medical Devices Description No Information Available Encounters Type Date Location Provider Dx Diagnosis Office Visit 04/29/2019 [place] [facility] Agusto S. Cruz, I50.32 Chronic diastolic 10:00a Of [facility] DO FACC (congestive) heart failure Z79.4 edging catcher (current) use of insulin C90.01 Multiple myeloma in remission N18.9 Chronic kidney disease, unspecified J44.9 Chronic obstructive pulmonary disease, unspecified D64.9 Anemia, unspecified E66.8 Other obesity E11.69 Type 2 diabetes mellitus with other specified complication I63.9 Cerebral infarction, unspecified I10 Essential (primary) hypertension E78.5 Hyperlipidemia, unspecified G47.33 Obstructive sleep apnea (adult) (pediatric) I25.10 Athscl heart disease of [place] coronary artery w/o ang pctrs Office Visit 04/23/2019 11:00a [place] [facility] Funez Coch, E11.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Endocrinology of [facility] 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 N18.4 Chronic kidney disease, stage 4 (severe) Z79.4 group home (current) use of insulin Office Visit 02/27/2019 11:30a [facility] Nephrology Marquita Campbell, N18.4 Chronic kidney MD disease, stage 4 (severe) C90.01 Multiple myeloma in remission I12.9 Hypertensive chronic kidney disease w stg 1-4/unsp chr kdny Assessments Date Code Description Provider 07/18/2019 C90.02 Multiple myeloma in relapse Marquita Campbell MD 07/18/2019 D64.9 Anemia, unspecified Marquita Campbell MD 07/18/2019 N18.4 Chronic kidney disease, stage 4 (severe) Marquita Campbell MD 04/29/2019 I50.32 Chronic diastolic (congestive) heart Agusto Cruz DO FACC failure 04/29/2019 Z79.4 group home (current) use of insulin Agusto Cruz DO FACC 04/29/2019 C90.01 Multiple myeloma in remission Agusto Cruz DO FACC 04/29/2019 N18.9 Chronic kidney disease, unspecified Agusto Cruz, DO FACC 04/29/2019 J44.9 Chronic obstructive pulmonary disease, Agusto Cruz, DO FACC unspecified 04/29/2019 D64.9 Anemia, unspecified Agusto Cruz, DO FACC 04/29/2019 E66.8 Other obesity Agusto Cruz, DO [facility] 04/29/2019 E11.69 Type 2 diabetes mellitus with other Agusto Cruz, DO [facility] specified complication 04/29/2019 I63.9 Cerebral infarction, unspecified Agusto Cruz, DO [facility] 04/29/2019 I10 Essential (primary) hypertension Agusto Cruz, DO [facility] 04/29/2019 E78.5 Hyperlipidemia, unspecified Agusto Cruz, DO [facility] 04/29/2019 G47.33 Obstructive sleep apnea (adult) Agusto Cruz, DO [facility] (pediatric) 04/29/2019 I25.10 Atherosclerotic heart disease of [place] Agusto Cruz, DO [facility] coronary artery with 04/23/2019 E11.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mellitus with diabetic Armin Loja MD chronic kidney diseas 04/23/2019 N18.4 Chronic kidney disease, stage 4 (severe) Armin Loja MD 04/23/2019 Z79.4 group home (current) use of insulin Armin Loja MD 02/27/2019 N18.4 Chronic kidney disease, stage 4 (severe) Marquita Campbell MD 02/27/2019 C90.01 Multiple myeloma in remission Marquita Campbell MD 02/27/2019 I12.9 Hypertensive chronic kidney disease w stg Marquita Campbell MD 1-4/[facility] kdny Plan of Treatment Future Appointment(s):09/16/2019 1:00 pm - Narinder Ruiz MD at [facility] Nephrology Functional Status Description No Information Available Mental Status Description No Information Available Referrals Description No Information Available
--- OUTSIDE RECORDS SUMMARY | 2019-07-27 12:49 | XMS REPORT | Continuity of Care Document ---
:1950 External Reference #:[id number] Author Name Marquita Campbell MD (transmitted by agent of provider Nupur [place]) Address [address] [place] [address] Care Team Providers Name Role Phone Aditya Weston NP - Family Care Team Information [facility] [phone] Paul Humphreys MD - Plastic and Care Team Information [facility] Reconstructive Surgery Problems Active Problems Provider Date Coronary arteriosclerosis Jacqueline Garg D.O. Onset: 09/27/2011 Chest pain Jacqueline Garg D.O. Onset: 02/26/2012 Hyperlipidemia Brianda Butcher N.P. Onset: 06/04/2012 Benign essential hypertension Brianda Butcher N.P. Onset: 06/04/2012 Coronary arteriosclerosis Jacqueline Garg D.O. Onset: 10/30/2012 Angina decubitus Jacqueline Garg D.O. Onset: 09/15/2013 Essential hypertension Jimmie Malone M.D., [facility], [facility] Onset: 11/28/2013 Chronic ischemic heart disease Jimmie Malone M.D., [facility], [facility] Onset: 2013 Radiation injury Jimmie Malone M.D., [facility], [facility] Onset: 11/28/2013 Tremor Andreia Finn M.D. Onset: 03/26/2015 Headache Andreia Finn M.D. Onset: 03/26/2015 Essential hypertension Jimmie Malone M.D., [facility], [facility] Onset: 07/14/2015 Chronic ischemic heart disease, [facility] Onset: 2014 unspecified Carpal tunnel syndrome of right Andreia Finn M.D. Onset: 08/10/2016 wrist Facial palsy Andreia Finn M.D. Onset: 12/14/2016 Snapping thumb syndrome Jericho Herr MD Onset: 08/14/2017 Acquired trigger finger Jericho Herr MD Onset: 08/14/2017 Angina pectoris Jimmie Malone M.D., [facility] Onset: 09/05/2017 Lateral epicondylitis Jericho Herr MD Onset: 09/18/2017 Atherosclerotic heart disease of Jimmie Malone M.D., [facility] Onset: 2016 [place] coronary artery with other forms of angina pectoris Preoperative cardiovascular Jimmie Malone M.D., [facility] Onset: 01/09/2018 examination Polyneuropathy Jude Ramos M.D. Onset: 02/22/2018 Abnormal gait Jude Ramos M.D. Onset: 02/22/2018 Nervous system symptoms Jude Ramos M.D. Onset: 02/22/2018 Chronic fatigue syndrome Jude Ramos M.D. Onset: 02/22/2018 Atherosclerotic heart disease of Jimmie Malone M.D., [facility] Onset: 2017 [place] coronary artery with unspecified angina pectoris Type [...] in at night 100Unit/ML Solution Pen-Inject Pen [place] 1 each with every 200units E11.9 Armin Loja MD 06/27/2018 31G X 6 mm insulin injection [facility] 1 pair of 1units E11.9 Armin Loja MD 06/27/2018 [facility] for daily use Freestyle place 1 sensor 3units E11.8 Armin Loja MD 06/27/2018 Jamie/Sensor/Flash every 10 days Monitoring System [facility] use every 8 hours 1units Armin Loja MD 06/27/2018 Jamie/Casey/Flash with sensor Monitoring System Device Amlodipine Besylate [...] Result H/L Range Note Laboratory test 04/23/2019 [facility] TSH (Thyroid 1.22 Normal 0.34-5.[address] Stim Horm) mcIU/[place] [address] [phone] Basic Metabolic 04/23/2019 [facility] Sodium 137 mmol/L Normal 135-145 Panel [address] [place] [address] [phone] Potassium 4.2 mmol/L Normal 3.5-5.0 Chloride 105 mmol/L Normal 101-111 Co2 Carbon Dioxide 26 mmol/L Normal 22-32 Anion Gap 6 mmol/L Normal 2-11 Glucose 126 mg/dL High 70-100 Blood Urea Nitrogen 36 mg/dL High 6-24 Creatinine 2.60 mg/dL High 0.67-1.17 BUN/Creatinine Ratio 13.8 Normal 8-20 Calcium 8.5 mg/dL Low 8.6-10.3 Egfr Non- 24.7 >60 Egfr 29.9 >60 1 Laboratory test 04/23/2019 [facility] Hemoglobin A1c 7.7 % High 4.0-5.[address] (Glyco HGB) [place] [address] [phone] Fructosamine 237 mcmol/L 200 - 285 3 CBC Auto 03/01/2019 [facility] White Blood 7.2 10^3/uL Normal 3.5-10.[address] [place] [address] [phone] Red Blood Count 3.20 10^6/uL Low 4.18-5.48 [...] Blood Cells % 0.0 Comp Metabolic 03/01/2019 [facility] Sodium 135 mmol/L Normal 135-[address] [place] [address] [phone] Potassium 4.3 mmol/L Normal 3.5-5.0 Chloride 100 [...] 30.8 >60 4 Total Protein 24HR 03/01/2019 [facility] Urine Collection Time 24 hr Urine [address] [place] [address] [phone] Urine Total Volume 2600 mL 5 Urine TP Concentration 174 mg/dL Urine Total Protein/24HR 4524 mg/24Hr High 0-165 Laboratory 03/01/2019 [facility] Immunoglobulin G 2140 Abnormal 767 - [address] (Igg) mg/dL 1590 [place], [place] [id number] [phone] Immunoglobulin M (Igm) 28 mg/dL Abnormal 37 - 286 7 Immunoglobulin A (Iga) 71 mg/dL 61 - 356 8 [place]/Lambda Free 03/01/2019 [facility] [place] Free 2.29 mg/dL Abnormal [address] [place] [address] [phone] Lambda Free Light Chain 7.49 mg/dL Abnormal 10 [place]/Lambda Free Light Chain 0.3057 11 Protein 03/01/2019 [facility] Total 6.6 g/dL 6.3 - Electrophoresis 101 Protein(Pep) 7.9 [place] [address] [phone] Albumin 3.0 g/dL Abnormal 3.4-4.7 Alpha-1 Globulin 0.2 g/dL 0.1-0.3 Alpha-2 Globulin 0.9 g/dL 0.6-1.0 Beta Globulin 0.8 g/dL 0.7-1.2 Gamma Globulin 1.7 g/dL Abnormal 0.6-1.6 Albumin/Globulin Ratio 0.84 M Fercho 1.5 g/dL Impression See Comment 12 Laboratory 03/01/2019 [facility] Miscellaneous See Comment [address] [place] [address] [phone] CBC Auto Diff 02/17/2019 [facility] White Blood Count 7.4 10^3/ uL Normal 3.5- [address] 10.8 [place] [address] [phone] Red Blood Count 2.87 10^6/uL Low 4.18-5.48 [...] Blood Cells % 0 Basic Metabolic 02/17/2019 [facility] Sodium 136 mmol/L Normal 135-145 Panel [address] [place] [address] [phone] Potassium 3.9 mmol/L Normal 3.5-5.0 Chloride 105 mmol/L Normal 101-111 Co2 Carbon Dioxide 26 mmol/L Normal 22-32 Anion Gap 5 mmol/L Normal 2-11 Glucose 52 mg/dL Low 70-100 Blood Urea Nitrogen 43 mg/dL High 6-24 Creatinine 2.69 mg/dL High 0.67-1.17 BUN/Creatinine Ratio 16.0 Normal 8-20 Egfr Non- 23.7 >60 Egfr 28.7 >60 14 Laboratory test 02/17/2019 [facility] Creatinine Random 37.23 mg /dL finding [address] [place] [address] [phone] Urine Microalbumin 02/17/2019 [facility] Urine Creatinine 37.23 mg/dL Random [address] [place] [address] [phone] Ur Microalbumin (mg/L) 721.8 mg/L Urine Microalbumin/Creatinine 1938.7 High <31 Laboratory test 02/17/2019 [facility] Total Protein 116 mg/dL finding [address] [place] [place] [address] [phone] Calcium 9.2 mg/dL Normal 8.6-10.3 Phosphorus 3.6 mg/dL Normal 2.5-5.0 Magnesium 1.9 mg/dL Normal 1.9-2.7 Basic Metabolic 01/22/2019 [facility] Sodium 138 mmol/L Normal 135-145 Panel [address] [place] [address] [phone] Potassium 4.0 mmol/L Normal 3.5-5.0 Chloride 106 mmol/L Normal 101-111 Co2 Carbon Dioxide 28 mmol/L Normal 22-32 Anion Gap 4 mmol/L Normal 2-11 Glucose 60 mg/dL Low 70-100 Blood Urea Nitrogen 40 mg/dL High 6-24 Creatinine 2.13 mg/dL High 0.67-1.17 BUN/Creatinine Ratio 18.8 Normal 8-20 Calcium 8.8 mg/dL Normal 8.6-10.3 Egfr Non- 31.1 >60 Egfr 37.6 >60 15 Laboratory test 01/22/2019 [facility] Hemoglobin A1c 7.5 % High 4.0-5.6 16 [address] [place], [place] [address] [phone] 1 Because ethnic data is not always [...] in selective patients <6.0%. Please refer to [place] [employer] diabetic care guidelines for further information. 3 Test Performed by: [address] [address] 4 Because ethnic data is not always [...] as: 1550 mL 6 Test Performed by: [place] [address] 7 Test Performed by: [place] [address] 8 Test Performed by: [place] [address] 9 REFERENCE VALUE 0.3300-1.94 10 REFERENCE VALUE 0.5700-2.63 11 REFERENCE VALUE 0.2600-1.65 Test Performed by: [place] [address] 12 M-spike in gamma fraction. Size of monoclonal protein not changed significantly since 11/01/2018. Test Performed by: [place] [address] 13 Test Result Flag Unit RefValue Quant Free [place]/Lambda Light Chains Hours Collected 24 hr Total Volume 2600 mL Total Protein 2958 H mg/d 10-140 INTERPRETIVE INFORMATION: Total Protein Total urinary protein is determined nephelometrically by adding the albumin and [place] and/or Lambda light chains. This value may not agree with the total protein as determined by chemical methods, which characteristically underestimate urinary light chains. Albumin, Urine Detected Detected Alpha-1, Urine Detected REFERENCE VALUE None Detected Alpha-2, Urine Detected REFERENCE VALUE None Detected Urine Beta Globulin Detected REFERENCE VALUE None Detected Gamma, Urine Detected REFERENCE VALUE None Detected Free Urinary [place] 11.20 H mg/dL 0.14-2.42 Light Chains Free Urinary [place] 291.20 mg/d Excretion/Day Free Urinary Lambda 4.78 H mg/dL 0.02-0.67 Light Chain Free Urinary Lambda 124.28 mg/d Excretion/Day Free Urinary 2.34 ratio 2.04-10.37 [place]/Lambda Ratio Performed by [facility], [address] [place] [id number] [email or web address], Willie Polanco MD - Lab. Director JOY Interpretation See Note Urine is POSITIVE for monoclonal Free Lambda Light chains (Bence Hutchison Protein). Urine JOY shows a monoclonal IgG heavy chain with associated lambda light chain and excess monoclonal free lambda light chains. Test Performed by: [facility] [address] [place] [address] 14 Because ethnic data is not always [...] in selective patients <6.0%. Please refer to [place] [employer] diabetic care guidelines for further information. Procedures Date Code Description Status 04/29/2019 71837 EKG Tracing & Interpretation Completed 02/13/2018 [id number] Colonoscopy Completed Medical Devices Description No Information Available Encounters Type Date Location Provider Dx Diagnosis Office Visit 04/29/2019 [facility] Agusto Cruz, I50.32 Chronic diastolic 10:00a Of Rv Detailer DO FACC (congestive) heart failure Z79.4 meterman (current) use of insulin C90.01 Multiple myeloma in remission N18.9 Chronic kidney disease, unspecified J44.9 Chronic obstructive pulmonary disease, unspecified D64.9 Anemia, unspecified E66.8 Other obesity E11.69 Type 2 diabetes mellitus with other specified complication I63.9 Cerebral infarction, unspecified I10 Essential (primary) hypertension E78.5 Hyperlipidemia, unspecified G47.33 Obstructive sleep apnea (adult) (pediatric) I25.10 Athscl heart disease of [place] coronary artery w/o ang pctrs Office Visit 04/23/2019 11:00a [facility] Armin Loja, 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 N18.4 Chronic kidney disease, stage 4 (severe) Z79.4 meterman (current) use of insulin Office Visit 02/27/2019 11:30a [facility] Marquita Campbell N18.4 Chronic kidney MD disease, stage 4 (severe) C90.01 Multiple myeloma in remission I12.9 Hypertensive chronic kidney disease w stg 1-4/unsp chr kdny Office Visit 01/22/2019 9:00a [facility] Armin Loja, 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 Z79.4 custodial (current) use of insulin N18.4 Chronic kidney [...] Agusto Cruz DO FACC failure 04/29/2019 Z79.4 custodial (current) use of insulin Agusto Cruz DO FACC 04/29/2019 C90.01 Multiple myeloma in remission Agusto Cruz DO FACC 04/29/2019 N18.9 Chronic kidney disease, unspecified Agusto Cruz DO FAC 04/29/2019 J44.9 Chronic obstructive pulmonary disease, Agusto Cruz, DO [facility] unspecified 04/29/2019 D64.9 Anemia, unspecified Agusto Cruz, DO FAC 04/29/2019 E66.8 Other obesity Agusto Cruz, DO FAC 04/29/2019 E11.69 Type 2 diabetes mellitus with other Agusto Cruz, DO [facility] specified complication 04/29/2019 I63.9 Cerebral infarction, unspecified Agusto Cruz, DO FAC 04/29/2019 I10 Essential (primary) hypertension Agusto Cruz, DO FAC 04/29/2019 E78.5 Hyperlipidemia, unspecified Agusto Cruz, DO [facility] 04/29/2019 G47.33 Obstructive sleep apnea (adult) Agusto Cruz, DO [facility] (pediatric) 04/29/2019 I25.10 Atherosclerotic heart disease of [place] Agusto Cruz, DO [facility] coronary artery with 04/23/2019 E11.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mellitus with david Loja MD chronic kidney diseas 04/23/2019 N18.4 Chronic kidney disease, stage 4 (severe) Armin Loja MD 04/23/2019 Z79.4 meterman (current) use of insulin Armin Loja MD 02/27/2019 N18.4 Chronic kidney disease, stage 4 (severe) Marquita Campbell MD 02/27/2019 C90.01 Multiple myeloma in remission Marquita Campbell MD 02/27/2019 I12.9 Hypertensive chronic kidney disease w stg Marquita Campbell MD 1-4/unsp chr kdny 01/22/2019 E11.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mellitus w david Loja MD chronic kidney disease 01/22/2019 Z79.4 custodial (current) use of insulin Armin Loja MD 01/22/2019 N18.4 Chronic kidney disease, stage 4 (severe) Armin Loja MD 01/22/2019 J44.1 Chronic obstructive pulmonary disease with Armin Loja MD (acute) exacerbat Plan of Treatment Future Appointment(s):09/16/2019 1:00 pm - Narinder Ruiz MD at [facility] Ioldyvdpal27/27/2019 - Marquita Campbell, [facility] [place]90.02 Multiple myeloma in njejswtT21.9 Anemia, tmrjcqcibzlH24.4 Chronic kidney disease, stage 4 (severe) Functional Status Description No Information Available Mental Status Description No Information Available Referrals Description No Information Available
--- NOTE | 2019-07-27 12:57 | ED ---
Neurological HPI - HPI Summary HPI Summary: 69 year old male presents to the ED by EMS with a chief complaint of general pain, starting last night but intensely worsened at 1158 this morning. ALYSSIA ROPER CALLED AT 1231. Per EMS, patient was resting when he suddenly had garbled speech and left side weakness. Per , pt slid off of couch at home, son called EMS. Last known well was when his son saw him go to sleep on the couch at 0830. Patient reports a fever, intense chest ache, and weakness and numbness in the LLE bilat. PMHx of CAD, multiple myeloma, ischemic stroke, HTN, chronic kidney disease. No Hx [place]. Had melanoma >40 years ago, in remission. Per , he was normal this morning at 0800, eating breakfast and making conversation. She reports that he mentioned he felt cold and congested yesterday. Hx smoking, quit 15 years ago. Medications reviewed. Allergies noted. - History of Current Complaint Stated Complaint: POSS STROKE PER EMS Time Seen by Provider: 07/27/19 12:37 Hx Obtained From: Patient, Family/Regulator Operator - , son, EMS Onset/Duration: Sudden Onset, Still Present, Worse Since - 1158 Timing: Sudden Onset Onset Severity: Severe Current Severity: Severe Neurological Deficit Location: Generalized Pain Intensity: 5 Pain Scale Used: 0-10 Numeric Character: Weak, Impaired Speech Aggravating: Unknown Associated Signs and Symptoms: Positive: Pain, Impaired Speech, Numbness, Fever , Chest Pain - Additional Pertinent History Primary Care Physician: [id number] - Allergy/Home Medications Allergies/Adverse Reactions: Allergies Allergy/AdvReac Type Severity Reaction Status Date / Time amoxicillin AdvReac Diarrhea Verified 07/27/19 15:56 clavulanic acid AdvReac Dizziness Verified 07/27/19 15:56 Home Medications: Home Medications Benzonatate CAP* [Tessalon 100 MG CAP*] 100 mg PO TID PRN 07/27/19 [History Confirmed 07/27/19] Lansoprazole CAP (NF) [Prevacid CAP (NF)] 15 mg PO DAILY 07/27/19 [History Confirmed 07/27/19] PMH/Surg Hx/FS Hx/Imm Hx Endocrine/Hematology History: Reports: Hx Bone Marrow Disease - Multiple myeloma 2014/2015, Hx Diabetes, Hx Thyroid Disease - on medication, Hx Anemia - history of, not recent, Other Endocrine/Hematological Disorders Cardiovascular History: Reports: Hx Angina - unstable angina, Hx Coronary Artery Disease - 3 cardiac stents, 2010 & 2012, Hx Hypercholesterolemia, Hx Hypertension - ON MEDS, Other Cardiovascular Problems/Disorders - hyperlipidemia , CVA 05/08 Denies: Hx Cardiac Arrest, Hx Myocardial Infarction, Hx Pacemaker/ICD, Hx Valvular Heart Disease Respiratory History: Reports: Hx Asthma - possible, Hx Chronic Obstructive Pulmonary Disease (COPD), Hx Seasonal Allergies, Hx Sleep Apnea - Oxygen 3 liters at night. Denies: Hx Pulmonary Edema, Other Respiratory Problems/Disorders GI History: Reports: Hx Gastroesophageal Reflux Disease - on medication, Other GI Disorders - PANCREATITIS History: Reports: Hx Kidney Stones - history of, 3, Other Problems/ Disorders - benign growth on L kidney-follows with Dr Posey Denies: Hx Renal Disease Musculoskeletal History: Reports: Hx Arthritis - left shoulder, Hx Back Problems - arthritis, Hx Tendonitis - right elbow, Other Musculoskeletal History - Right hand thumb and pinky trigger fingers Sensory History: Reports: Hx Cataracts - 2007 Bilateral, Hx Contacts or Glasses - reading Denies: Hx Hearing Aid Opthamlomology History: Reports: Hx Cataracts - 2007 Bilateral, Hx Contacts or Glasses - reading Neurological History: Reports: Hx Headaches, Hx Nerve Disease - Neuropathy bilateral feet, hx of carpal tunnel right wrist, Other Neuro Impairments/ Disorders - numbness R hand, Rehman's palsy 2008, balance issues, hx of tremors. 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 MULTIPLE Myeloma Hx Chemotherapy: Yes - Surgical History Surgery Procedure, Year, and Place: CAD - HEART STENT - 09/2013 -3X. Carpal tunnel/trigger finger surgery-BILATERAL HANDS. Cataracts-BILATERAL. Rt AXILLA DISSECTION - REMOVED melonama-1977. Stem Cell Transplant, [facility] February 2016. Carpal tunnel Hx Anesthesia Reactions: No - Immunization History Date of Tetanus Vaccine: Unk Date of Influenza Vaccine: Fall 2012 Infectious Disease History: Reports: Hx Shingles - 10/2015 Denies: Hx Clostridium Difficile, Hx Hepatitis, Hx Human Immunodeficiency Virus (HIV), Hx of Known/Suspected MRSA, Hx Tuberculosis, Hx Known/Suspected VRE , Hx Known/Suspected VRSA, History Other Infectious Disease, Traveled Outside the [place] in Last 30 Days - Family History Known Family History: Positive: Cardiac Disease, Diabetes - Social History Alcohol Use: Weekly Alcohol Amount: 2 Substance Use Type: Reports: None Hx Tobacco Use: Yes Smoking Status (MU): Former Smoker Type: Cigarettes Amount Used/How Often: CIGARS AND PIPE 1-3 TIMES A WEEK WHILE GOLFING Length of Time of Smoking/Using Tobacco: went form about 1pck/d Cigarettes,to pipe occ cigar. Have You Smoked in the Last Year: No Review of Systems Positive: Fever, Chills Positive: Other - congestion Positive: Chest Pain Positive: Weakness - left sided, Numbness - in feet bilaterally, Slurred Speech - also garbled speach All Other Systems Reviewed And Are Negative: Yes Physical Exam - Summary Physical Exam Summary: Constitutional: Well-developed, Well-nourished, Alert. (-) Distressed. Garbled speech. Skin: Warm, Dry HENT: Normocephalic; Atraumatic Eyes: Conjunctiva normal. EOMI. Visual field intact. Neck: Musculoskeletal ROM normal neck. (-) JVD, (-) Stridor, (-) Tracheal deviation Cardio: Rhythm regular, rate normal, Heart sounds normal; Intact distal pulses. Radial pulses are 2+ and symmetric. (-) Murmur Pulmonary/Chest wall: Effort normal. (-) Respiratory distress, (-) Wheezes, (-) Rales Abd: Soft. (-) Tenderness, (-) Distension, (-) Guarding, (-) Rebound Musculoskeletal: (-) Edema. No arm droop. Lymph: (-) Cervical adenopathy Neuro: Alert, Oriented x3, Strength normal, Cranial nerves II-XII are grossly intact. (-) Dysmetria, (-) Nystagmus, (-) Ataxia by finger to nose testing, (-) Sensory deficit. Left facial droop. Sensation intact bilaterally. Psych: Mood and affect Normal Triage Information Reviewed: Yes Vital Signs Reviewed: Yes - Cary Coma Scale Best Eye Response: 4 - Spontaneous Best Motor Response: 6 - Obeys Commands Best Verbal Response: 5 - Oriented Coma Scale Total: 15 Procedures - Sedation Patient Received Moderate/Deep Sedation with Procedure: No Diagnostics - Laboratory Result Diagrams: 07/27/19 12:57 07/27/19 12:57 Lab Statement: Any lab studies that have been ordered have been reviewed, and results considered in the medical decision making process. - Radiology CXR Radiology Interpretation Completed By: Radiologist Summary of Radiographic Findings: CXR shows low lung volumes, left basilar infiltrate. An ED physician has reviewed this report. - CT Brain Ct CT Interpretation Completed By: Radiologist Summary of CT Findings: Brain CT shows: 1. NO EVIDENCE FOR GROSS ACUTE INFARCT , MASS EFFECT OR HEMORRHAGE. 2. OLD LACUNAR INFARCT IN THE LEFT THALAMUS. An ED physician has reviewed this report. - EKG 1251 Cardiac Rate: Tachycardia - 101 bpm EKG Rhythm: Sinus Tachycardia Summary of EKG Findings: EKG at 1251 shows sinus tachycardia at 101 bpm. An ED physician has reviewed and interpreted this EKG. NIH Scale - NIH Scale Level of Consciousness: Alert/Keenly Responsive Ask Patient the Month and His/Her Age: Neither Correct/Aphasic Ask Pt to Open/Close Eyes and Meat Supervisor/Release Non-Paretic Hand: Both Correctly Best Gaze (Only Horizontal Eye Movement): Normal Visual Field Testing: No Visual Loss Facial Paresis-Pt to Smile & Close Eyes or Grimace Symmetry: Partial Paralysis Motor Function - Right Arm: No Drift-Holds 10 Seconds Motor Function - Left Arm: No Drift-Holds 10 Seconds Motor Function - Right Leg: No Drift-Holds 10 Seconds Motor Function - Left Leg: No Drift-Holds 10 Seconds Limb Ataxia-Must be out of Proportion to Weakness Present: Absent Sensory (Use Pinprick to Test Arms/Legs/Trunk/Face): Normal Best Language (Describe Picture, Name Items): No Aphasia Dysarthria (Read Several Words): Slurs Some Words Extinction and Inattention: No Abnormality Total Score: 5 Course/Dx - Course Course Of Treatment: Patient was brought in as a code petit by EMS. Upon arrival , patient was evaluated by myself in the hallway. Patient did have garbled speech and a left facial droop. Patient had a CT scan performed emergently which showed no acute abnormality. Patient cannot receive a CTA due to his CKD. Neurology was counseled to do and they do not believe this is a stroke. Patient was febrile here and had a chest x-ray which showed pneumonia. Patient' s neurologic deficits to improve while here and are likely related to his underlying infection. Patient was given antibiotics and admitted to the hospitalist. - Diagnoses Provider Diagnoses: Pneumonia, Fever, Facial droop During the Visit The Following Alert/Code Occurred: Code Roper - called 1231 - Physician Notifications Discussed Care Of Patient With: Ximena Amin - Hospitalist Time Discussed With Above Provider: 15:08 Instructed by Provider To: Other - Dr. Amin accepts patient for admission. Admit/Transition Orders Completed By ED Provider: Yes - Critical Care Time Critical Care Time: 30-74 min - 40 min Discharge ED - Sign-Out/Discharge Documenting (check all that apply): Patient Departure - admit - Discharge Plan Condition: Stable Disposition: ADMITTED TO [facility] - Billing Disposition and Condition Condition: STABLE Disposition: Admitted to [facility] - Attestation Statements Document Initiated by Toshia: Yes Documenting Scribe: Juan A Arceo Provider For Whom Toshia is Documenting (Include Credential): Dean Juarez MD Scribe Attestation: Juan A Almodovar, scribed for Dean Juarez MD on 07/27/19 at 2111. Scribe Documentation Reviewed: Yes Provider Attestation: The documentation as recorded by the Juan A mcfarland accurately reflects the service I personally performed and the decisions made by Dean webster MD Status of Scribe Document: Viewed
[2019-07-27] MEDS ORDERED: Labetalol IV* 5 MG/ML 20 ML VIAL IV PUSH ONE (13:02)
[2019-07-27 13:05] LABS: ABS Basophils 0.1 10^3/ul (0-0.2); ABS Eosinophils 0.1 10^3/ul (0-0.6); ABS Lymphocytes 0.7 10^3/ul (1.0-4.8); ABS Monocytes 0.4 10^3/ul (0-0.8); ABS Neutrophils 9.9 10^3/ul (1.5-7.7); Eosinophil % 0.9 %; Hematocrit 27 % (42-52); Hemoglobin 8.9 g/dL (14.0-18.0); Lymphocyte % 6.5 %; Mean Corpuscular HGB Conc 33 g/dL (31-36); Mean Corpuscular Hemoglobin 32 pg (27-31); Mean Corpuscular Volume 97 fL (80-94); Mean Platelet Volume 7.5 fL (7.4-10.4); Platelet Count 155 10^3/uL (150-450); Red Blood Count 2.81 10^6 /uL (4.18-5.48); Red Cell Distribution Width 19 % (10-15); White Blood Count 11.2 10^3/uL (3.5-10.8)
[2019-07-27] MEDS ORDERED: Labetalol IV* 5 MG/ML 20 ML VIAL ONE (13:05)
[2019-07-27 13:14] LABS: INR 1.11 (0.82-1.09)
[2019-07-27 13:22] LABS: ALT 17 U/L (7-52); AST 18 U/L (13-39); Albumin 3.7 g/dL (3.2-5.2); Albumin/Globulin Ratio 0.8 (1-3); Alkaline Phosphatase 89 U/L (34-104); Anion Gap 7 mmol/L (2-11); BUN/Creatinine Ratio 12.3 (8-20); Blood Urea Nitrogen 30 mg/dL (6-24); CO2 Carbon Dioxide 23 mmol/L (22-32); Calcium 8.6 mg/dL (8.6-10.3); Chloride 104 mmol/L (101-111); Cholesterol 101 mg/dL; EGFR African American 32.2 (>60); EGFR Non-African American 26.6 (>60); Globulin 4.5 g/dL (2-4); Glucose 88 mg/dL (70-100); HDL Cholesterol 27.1 mg/dL; LDL Cholesterol 60 mg/dL; Potassium 4.2 mmol/L (3.5-5.0); Sodium 134 mmol/L (135-145); Total Protein 8.2 g/dL (6.4-8.9); Triglycerides 71 mg/dL
[2019-07-27 13:36] LABS: Troponin I 0.04 ng/mL (<0.04)
[2019-07-27] MEDS ORDERED: Azithromycin 500 mg/250 ml NS 500 MG/250 ML BAG IVPB ONE (14:51)
[2019-07-27] MEDS ORDERED: cefTRIAXone(*) 1 GM in NS 0.9% 50 ML* 50 ML IVPB ONE (14:51)
[2019-07-27] MEDS ORDERED: Acetaminophen TAB* 325 MG PO ONE (15:04)
[2019-07-27] MEDS ORDERED: Albuterol/Ipratropium NEB.SOL* Albuterol 2.5 MG/Ipratropium 0.5 MG 3 ML INH PRN (15:41)
[2019-07-27] MEDS ORDERED: Acetaminophen TAB* 325 MG PO PRN (15:41)
[2019-07-27] MEDS ORDERED: Magnesium Hydroxide LIQ* 30 ML UDC PO PRN (15:41)
[2019-07-27] MEDS ORDERED: ALPRAZolam TAB* 0.5 MG PO PRN (15:44)
[2019-07-27] MEDS ORDERED: Benzonatate CAP* 100 MG PO PRN (15:44)
[2019-07-27] MEDS ORDERED: Albuterol HFA INHALER* 8 gm MDI INH PRN (15:44)
[2019-07-27] MEDS ORDERED: Nitro 2% OINT* (Nitroglycerin) 1 INCH/PAK PAK TOPICAL ONE (15:48)
[2019-07-27] MEDS ORDERED: Dextrose 50% VIAL 50 ml IV PUSH PRN (15:51)
[2019-07-27] MEDS ORDERED: Bumetanide IV* 0.25 MG/ML 4 ML VIAL SLOW PUSH ONE (15:53)
[2019-07-27] MEDS: Enoxaparin(*) 30 MG/0.3 ML SYR SUBCUT SCH (16:05)
--- NOTE | 2019-07-27 17:48 | HP ---
CC: Aditya Weston NP; Dr. Agusto Cruz; Dr. Ruiz; Dr. Loya * ADMISSION HISTORY AND PHYSICAL: DATE OF ADMISSION: 07/27/19 PRIMARY CARE PROVIDER: Aditya Weston NP CARDIOLOGY: Dr. Agusto Cruz. NEPHROLOGY: Dr. Ruiz. ONCOLOGY: Dr. Loya. ATTENDING FOR THIS ADMISSION: Dr. Amin.* (DICTATED BY RADHA DAVID NP) CHIEF COMPLAINT: Weakness, cough, fever and chills, also altered mental status. HISTORY OF PRESENT ILLNESS: Mr. Loaiza is a 69-year-old male patient who presented to the emergency department today with an altered mental status and a code petit called overhead. Mr. Loaiza was in his usual state of health when he began having fevers and chills and rigors last evening, also with some accompanying shortness of breath that started this morning. His , who is his primary critical care specialist who is at the bedside, also states that she noticed he had started having some mental status changes. 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 He does have CVA in the past and is on Plavix. Because of these changes, a code petit was called in the emergency department. Code petit was called at 12:31 p.m. Last known well was when the patient was asleep this morning at approximately 8:30; however, given that the patient also was reporting the fever and chills and upper respiratory symptoms, there was concern that he also had some infectious etiology. The patient did undergo evaluation with Telestroke. His NIH scale initially was rated as 5 primarily because of some word slurring and AMS. He did not have any unilateral deficits , however, and he is again noted to have a left eye that has a slight droop at baseline. However, he did go through Telestroke and CAT scan. CAT scan did not show any new acute infarct. He does have an old chronic lacunar infarct, but no new deficits were noted. Stroke was ruled out; however, chest x-ray did reveal a left lower lobe infiltrate. He also had a marked leukocytosis and was febrile. The patient was also noted to be hypoxic and tachycardic with an elevated blood pressure. Because the patient also has a complex medical history including COPD, heart failure, insulin-dependent diabetes mellitus, cancer, hypertension, chronic kidney disease, and previous stroke, the patient was given antibiotics and hospitalists were requested to evaluate the patient for admission. PAST MEDICAL HISTORY: Significant for coronary artery disease, diastolic heart failure, CVA, hypertension, GERD, multiple myeloma, melanoma, obesity, COPD, chronic kidney disease stage 4, Rehman's palsy, obstructive sleep apnea, hyperlipidemia, insulin-dependent diabetes mellitus, hypothyroidism, anxiety and chronic headaches. PAST SURGICAL HISTORY: Cardiac cath with 3 stents, cataract removal, excision of melanoma growth, trigger finger repair, carpal tunnel release bilaterally. HOME MEDICATIONS: Include: 1. Prevacid 50 mg p.o. daily. 2. Tessalon 100 mg 3 times a day as needed. 3. Tylenol 500 mg p.o. q.6 hours as needed. 4. Xanax 0.5 mg p.o. b.i.d. as needed. 5. Lipitor 80 mg in the evening. 6. Albuterol 1 puff inhaled q.4-6 hours as needed. 7. Vitamin D 2000 units p.o. b.i.d. 8. Carvedilol 25 mg p.o. b.i.d. 9. Symbicort 80/4.5 one puff inhaled b.i.d. 10. Lantus 60 units subcu in the evening. 11. Neurontin 300 mg p.o. b.i.d. 12. Plavix 75 mg p.o. daily. 13. Isosorbide mononitrate extended release 120 mg p.o. daily. 14. Lispro 18 units subcu before meals. 15. Nystatin topical 3 times a day. 16. Nitroglycerin 0.4 mg sublingual q.5 minutes p.r.n. chest pain. 17. Multivitamin 1 tablet daily. 18. Lidocaine patch as needed. 19. Levothyroxine 75 mcg p.o. daily. 20. Amlodipine 5 mg p.o. daily. 21. Triamcinolone cream topical as needed 2 times a day. 22. Torsemide 20 mg p.o. daily. ALLERGIES: The patient has allergies to AMOXICILLIN and AUGMENTIN. FAMILY HISTORY: Mother with dementia. Father with renal disease, heart disease , and diabetes. SOCIAL HISTORY: The patient does have a remote history of smoking. He does not drink alcohol. Surrogate decision-maker is his who is at bedside. REVIEW OF SYSTEMS: The patient is complaining of fever, sweats, and chills, some rigors, some shortness of breath, cough, diarrhea 2 days ago. He denies any chest pain. He does endorse general weakness and some generalized body aches. No further constitutional complaints. PHYSICAL EXAMINATION GENERAL: Mr. Loaiza is an ill-appearing older gentleman, in moderate amount of distress. VITAL SIGNS: Blood pressure 200/95, heart rate 103, respiratory rate 23, O2 saturation 94% on 4 L nasal cannula with a temperature of 103.3. HEENT: The patient is atraumatic, normocephalic. PERRLA. Extraocular movements are intact. Left eye: He does have a slight droop and lid ptosis at baseline. He does have a flattened nasolabial fold also on the left with some asymmetry, again also his baseline. NECK: Supple, nontender. No JVD noted. No carotid bruits auscultated. LUNGS: Diminished throughout. He has poor air entry. He has an expiratory wheeze on the right and extremely diminished throughout the lung acuña, worse on the right than on the left. CARDIOVASCULAR: S1, S2 present. Rate is tachycardic. Rhythm is regular. No murmurs, gallops, or rubs noted. ABDOMEN: Soft, nontender, and nondistended. Obese. Positive bowel sounds in all 4 quadrants. : Deferred. MUSCULOSKELETAL: There is no clubbing, no cyanosis. He has got bipedal edema primarily to the dorsal aspect of the feet and usp up the shins. +2 pitting. Gross motor and sensation are intact. NEUROLOGIC: He is alert and oriented x3. Otherwise, no focal neuro deficits noted at this time. PSYCHIATRIC: Cooperative and appropriate. SKIN: Hot, somewhat diaphoretic. Otherwise, no wounds or other rashes noted. DIAGNOSTIC STUDIES/LAB DATA: Laboratories: WBCs 11.2, RBCs 2.81, hemoglobin 8.9, hematocrit 27, MCV 97, MCH 32, platelets 155. Sodium 134, potassium 4.2, chloride 104, CO2 of 23, anion gap 7, BUN 30, creatinine 2.43, GFR 26.6, glucose 88, lactic acid 1.5, calcium 8.6. Bilirubin 1.00, AST 18, ALT 17, alk phos 89. Ammonia 49. Troponin 0.04. Total protein 8.2, albumin 3.7, globulin 4.5, albumin-globulin ratio is 0.8. Triglycerides 71, cholesterol 101, LDL 60, HDL 27.1. INR is 1.11. Imaging: CT of the brain at 12:37 today shows no evidence for gross acute infarct, mass effect or hemorrhage. Old lacunar infarct in the left thalamus is noted. Chest x-ray shows low lung volumes with a left basilar infiltrate; however, he is also exhibiting signs especially on the right lung of symptoms of pulmonary vascular congestion. IMPRESSION: Mr. Loaiza is a 69-year-old gentleman with a complex comorbid medical history who presents in the emergency department today altered, code petit was called; however, he is found to have pneumonia and what is likely fluid overload secondary to heart failure. PLAN: The patient has been admitted to telemetry. DIAGNOSES: 1. Altered mental status. The patient's altered mental status is likely secondary to community-acquired pneumonia combined with fluid overload secondary to heart failure. The patient is taking azithromycin and ceftriaxone in the emergency department, also Tylenol for his fever which is high. I have also placed him on DuoNebs q.4 hours, Mucinex, he is on oxygen which can be weaned as tolerated. He has been ruled out for acute cerebrovascular accident and has been seen by Telestroke already. He is already on Plavix and a statin, so he is already on maximum medical therapy for transient ischemic attack or cerebrovascular accident. For the heart failure component, the patient will be given Bumex. He is in respiratory distress at this time and acute hypoxic respiratory failure. He is on torsemide at home; however, we will give him IV Bumex 2 mg now, also give him nitro paste. His blood pressure is very elevated. Nitro paste will help alleviate some preload and afterload, help reduce blood pressure and assist with his heart failure. I will order an echocardiogram for the morning. He has not had an echo since 2018. We will continue his Coreg and also titrate his O2 as tolerated. For his chronic kidney disease, his creatinine is at baseline. We will have to continue to monitor this while we diurese him. I think it would be prudent that tomorrow, we can consider consult with Nephrology and Cardiology depending on how the patient fares throughout the night tonight. 2. For his history of cerebrovascular accident, as noted above, he is already on Plavix. He does have history of Rehman's palsy. Telestroke has been consulted and CT is negative. He will be continued on his Plavix and statin. 3. Accelerated hypertension. He has already received labetalol. His blood pressure has not come down yet. Again, as above, continue his home meds. He has been given nitro paste and we will reassess after he receives Bumex. 4. History of multiple myeloma, currently stable. 5. Gastroesophageal reflux disease. Continue on his PPI. 6. Chronic obstructive pulmonary disease. He will be continued on his home inhalers. 7. Diabetes mellitus type 2, insulin dependent. We will continue him on his Lantus and lispro. He currently takes lispro 18 units before meals. We will also add sliding scale and Accu-Cheks a.c. and h.s. 8. History of anxiety. He will be continued on his Xanax. 9. History of coronary artery disease and stenting. He does have a slight bump in his troponin, this is likely demand in the setting of acute illness and hypoxic respiratory failure. He is on his statin and we will continue his Imdur and his Coreg. 10. DVT prophylaxis. Renally dosed Lovenox. 11. Diet. Heart healthy, consistent carbohydrate as tolerated. 12. Disposition. The patient is inpatient on telemetry. The rest of the patient's course will be determined by further diagnostics, laboratories, and any other input from other providers as warranted during this admission. TIME SPENT: Seventy minutes on admission plan, 50% of which has been spent face -to- face with the patient developing admission plan of care and on patient assessment. RADHA DAVID NP [id number]/[facility] #: [id number] CAM
[2019-07-27] MEDS: Carvedilol TAB* 25 MG PO SCH (17:49)
[2019-07-27] MEDS: Atorvastatin* 80 MG TAB PO SCH (17:49)
[2019-07-27] MEDS ORDERED: Insulin GLARGINE(*) 1 UNITS UNIT SUBCUT SCH (18:00)
[2019-07-27] MEDS: Insulin LISPRO* 1 UNITS UNIT SUBCUT SCH ×3 (18:00→21:30)
[2019-07-27 19:02] LABS: Urine Appearance Clear; Urine Bacteria Absent (Absent); Urine Bilirubin Negative (Negative); Urine Blood 3+ (Negative); Urine Color Straw; Urine Glucose Negative (Negative); Urine Ketones Negative (Negative); Urine Nitrite Negative (Negative); Urine Protein 2+(100 mg/dL) (Negative); Urine Red Blood Cell Trace(0-2/hpf) (Absent); Urine Specific Gravity 1.008 (1.010-1.030); Urine Urobilinogen Negative (Negative); Urine White Blood Cell Absent (Absent)
[2019-07-27] MEDS: Mometasone/Formoter 100/5 MDI INH SCH (20:01)
[2019-07-27] MEDS: guaiFENesin ER TAB 600 MG PO SCH (20:22)
[2019-07-27] MEDS: Gabapentin CAP(*) 300 MG PO SCH (20:23)
[2019-07-27] MEDS: Cholecalciferol TAB* 1000 UNITS PO SCH (20:23)
[2019-07-27] MEDS: Lidocaine Patch REMOVE* 1 NOTE MISC PATCH OFF SCH (20:26)
[2019-07-28 06:22] LABS: ABS Eosinophils 0.1 10^3/ul (0-0.6); ABS Lymphocytes 1.3 10^3/ul (1.0-4.8); ABS Monocytes 0.5 10^3/ul (0-0.8); ABS Neutrophils 8.1 10^3/ul (1.5-7.7); Eosinophil % 0.6 %; Hematocrit 22 % (42-52); Hemoglobin 7.5 g/dL (14.0-18.0); Lymphocyte % 12.8 %; Mean Corpuscular HGB Conc 34 g/dL (31-36); Mean Corpuscular Hemoglobin 32 pg (27-31); Mean Corpuscular Volume 96 fL (80-94); Mean Platelet Volume 7.8 fL (7.4-10.4); Platelet Count 114 10^3/uL (150-450); Red Blood Count 2.32 10^6 /uL (4.18-5.48); Red Cell Distribution Width 20 % (10-15); White Blood Count 9.9 10^3/uL (3.5-10.8)
[2019-07-28 06:38] LABS: Anion Gap 4 mmol/L (2-11); BUN/Creatinine Ratio 12.7 (8-20); Blood Urea Nitrogen 33 mg/dL (6-24); CO2 Carbon Dioxide 24 mmol/L (22-32); Calcium 7.9 mg/dL (8.6-10.3); Chloride 105 mmol/L (101-111); EGFR African American 29.9 (>60); EGFR Non-African American 24.7 (>60); Glucose 155 mg/dL (70-100); Potassium 4.2 mmol/L (3.5-5.0); Sodium 133 mmol/L (135-145)
[2019-07-28] MEDS: Mometasone/Formoter 100/5 MDI INH SCH ×2 (07:55→20:42)
[2019-07-28 08:46] LABS: % Iron Saturation 11 % (15-55); Iron 20 ug/dL (50-212); Total Iron Binding Capacity 174 mcg/dL (250-450); Transferrin 124 mg/dL (203-362)
[2019-07-28 08:51] LABS: Troponin I 0.07 ng/mL (<0.04)
[2019-07-28 09:05] LABS: Ferritin 181.1 ng/mL (24-336)
[2019-07-28] MEDS: Insulin LISPRO* 1 UNITS UNIT SUBCUT SCH ×7 (09:08→21:19)
[2019-07-28] MEDS: Lidocaine PATCH 5%* 1 PATCH TRANSDERM SCH (09:09)
[2019-07-28] MEDS: Cholecalciferol TAB* 1000 UNITS PO SCH ×2 (09:10→21:17)
[2019-07-28] MEDS: Gabapentin CAP(*) 300 MG PO SCH ×2 (09:10→21:18)
[2019-07-28] MEDS: Levothyroxine TAB* 75 MCG TAB PO SCH (09:11)
[2019-07-28] MEDS: Carvedilol TAB* 25 MG PO SCH ×2 (09:12→16:36)
[2019-07-28] MEDS: Pantoprazole TAB * 40 MG TAB PO SCH (09:12)
[2019-07-28] MEDS: Clopidogrel TAB* 75 MG PO SCH (09:12)
[2019-07-28] MEDS: guaiFENesin ER TAB 600 MG PO SCH ×2 (09:12→21:17)
[2019-07-28] MEDS: Isosorbide Mononitrate ER TAB* 60 MG PO SCH (09:13)
[2019-07-28] MEDS: amLODIPine TAB* 5 MG PO SCH (09:13)
[2019-07-28] MEDS ORDERED: Perflutren Lipid Microsphere* 3 ML VIAL ONE (09:46)
[2019-07-28] MEDS ORDERED: Simethicone TAB* 80 MG TAB.CHEW PO PRN (12:40)
--- NOTE | 2019-07-28 14:10 | PN ---
Subjective Date of Service: 07/28/19 Interval History: Patient reported 2 episodes of loose stool today and abd pain to RN Josue. By time of my evaluation, abd pain has resolved. Interested in probiotic. Feels his breathing is comfortable. Denies difficulty breathing, chest pain, fever/chills, abd pain, nausea, blood in stool. Productive cough continues but is less frequent. Objective Active Medications: Acetaminophen (Tylenol Tab*) 650 mg PO Q4H PRN PRN Reason: MILD PAIN or TEMP > 100.4 Albuterol (Ventolin Hfa Inhaler*) 1 puff INH .Q4-6H PRN PRN Reason: SHORTNESS OF BREATH Albuterol/Ipratropium (Duoneb (Albuterol 2.5 Mg/Ipratropium 0.5 Mg)) 1 neb INH [id number] AWAKE PRN PRN Reason: sob/wheexing Alprazolam (Xanax Tab*) 0.5 mg PO BID PRN PRN Reason: ANXIETY Amlodipine Besylate (Norvasc Tab*) 5 mg PO DAILY [facility] Last Admin: 07/28/19 09:13 Dose: 5 mg Atorvastatin Calcium (Lipitor*) 80 mg PO 1700 [facility] Last Admin: 07/27/19 17:49 Dose: 80 mg Benzonatate (Tessalon Cap*) 100 mg PO TID PRN PRN Reason: COUGH Carvedilol (Coreg Tab*) 25 mg PO BID WITH MEALS [facility] Last Admin: 07/28/19 09:12 Dose: 25 mg Cholecalciferol (Vitamin D Tab*) 2,000 units PO BID [facility] Last Admin: 07/28/19 09:10 Dose: 2,000 units Clopidogrel Bisulfate (Plavix Tab*) 75 mg PO DAILY [facility] Last Admin: 07/28/19 09:12 Dose: 75 mg Dextrose (Dextrose 50% Vial 50 Ml*) 25 ml IV PUSH .FOR FS < 60 - SS PRN PRN Reason: FS < 60 Enoxaparin Sodium (Lovenox(*)) 30 mg SUBCUT Q24H [facility] Last Admin: 07/27/19 16:05 Dose: 30 mg Gabapentin (Neurontin Cap(*)) 300 mg PO BID [facility] Last Admin: 07/28/19 09:10 Dose: 300 mg Guaifenesin (Mucinex*) 600 mg PO BID [facility] Last Admin: 07/28/19 09:12 Dose: 600 mg Azithromycin (Zithromax 500 Mg/250 Ml) 500 mg in 250 mls @ 250 mls/hr IVPB Q24H [facility] Ceftriaxone Sodium 1 gm/ (Sodium Chloride) 50 mls @ 100 mls/hr IVPB Q24H [facility] Insulin Glargine (Lantus(*)) 60 units SUBCUT QPM [facility] Last Admin: 07/27/19 18:49 Dose: 60 units Insulin Human Lispro (Humalog*) 18 units SUBCUT AC [facility] Last Admin: 07/28/19 12:36 Dose: 18 unit Insulin Human Lispro (Humalog*) 0 units SUBCUT ACHS [facility]; Protocol Last Admin: 07/28/19 12:36 Dose: 3 units Isosorbide Mononitrate (Imdur Er Tab*) 120 mg PO DAILY [facility] Last Admin: 07/28/19 09:13 Dose: 120 mg Levothyroxine Sodium (Synthroid Tab*) 75 mcg PO DAILY [facility] Last Admin: 07/28/19 09:11 Dose: 75 mcg Lidocaine (Lidoderm 5% Patch*) 1 patch TRANSDERM DAILY [facility] Last Admin: 07/28/19 09:09 Dose: 1 patch Magnesium Hydroxide (Milk Of Magnfrancicso Liq*) 30 ml PO Q4H PRN PRN Reason: CONSTIPATION Mometasone Furoate/Formoterol Fumar (Dulera 100/5 Mdi*) 1 puff INH BID [facility] Last Admin: 07/28/19 07:55 Dose: 1 puff Pantoprazole Sodium (Protonix Tab*) 40 mg PO DAILY [facility] Last Admin: 07/28/19 09:12 Dose: 40 mg Pharmacy Profile Note (Lidocaine Patch Remove*) 1 note PATCH OFF 2100 [facility] Last Admin: 07/27/19 20:26 Dose: Not Given Simethicone (Mylicon Tab*) 80 mg PO Q6H PRN PRN Reason: abdomen pain Last Admin: 07/28/19 13:46 Dose: 80 mg Vital Signs - 8 hr 07/28/19 07/28/19 07/28/19 07:40 07:55 09:10 Temperature 98.7 F Pulse Rate 70 75 Respiratory 16 18 16 Rate Blood Pressure 148/77 (mmHg) O2 Sat by Pulse 98 97 Oximetry 07/28/19 13:49 Temperature Pulse Rate Respiratory 16 Rate Blood Pressure (mmHg) O2 Sat by Pulse Oximetry Oxygen Devices in Use Now: Nasal Cannula Appearance: Obese, elderly white male, sitting in chair, appearing in NAD Eyes: No Scleral Icterus, PERRLA Ears/Nose/Mouth/Throat: Mucous Membranes Moist Neck: NL Appearance and Movements; NL JVP Respiratory: Symmetrical Chest Expansion and Respiratory Effort, Clear to Auscultation Cardiovascular: NL Sounds; No Murmurs; No JVD, RRR Abdominal: - - abd soft, nontender, nondistended Extremities: No Clubbing, Cyanosis, - - trace pitting edema to left foot Skin: No Rash or Ulcers Neurological: Alert and Oriented x 3, NL Muscle Strength and Tone Result Diagrams: 07/28/19 06:00 07/28/19 06:00 Assess/Plan/Problems-Billing Assessment: 69 yo white male with PMHx COPD on 3L oxygen overnight, CAD, CVA, HFpEF, HTN, CKD, Rehman's palsy, hypothyroidism, DMT2 presents with altered mental status found to have pneumonia and CHF exacerbation. - Patient Problems (1) Acute respiratory failure with hypoxia Current Visit: No Status: Acute Code(s): J96.01 - ACUTE RESPIRATORY FAILURE WITH HYPOXIA SNOMED Code(s): 13507751 Comment: -likely 2/2 combination of decompensated CHF plus pneumonia -currently with good saturations on 4L oxygen. Uses 3L oxygen overnight only at home. Will attempt to wean O2 today (2) Pneumonia Current Visit: Yes Status: Acute Code(s): J18.9 - PNEUMONIA, UNSPECIFIED ORGANISM SNOMED Code(s): 612498704 Comment: -left infiltrate on CXR at admission -continue ceftriaxone and azithromycin -afebrile thus far today, leukocytosis resolved (3) Acute on chronic diastolic (congestive) heart failure Current Visit: No Status: Acute Code(s): I50.33 - ACUTE ON CHRONIC DIASTOLIC (CONGESTIVE) HEART FAILURE SNOMED Code(s): 422520140 Comment: -appears near euvolemic today. Lungs are clear with just trace pedal edema -received IV bumex yesterday -given minimally worsened BUN/Cr, will hold restarting the home torsemide for now. Will likely restart tomorrow -echo with EF 50-55%, no wall motion abnormalities, and actually no longer with diastolic dysfunction (4) Loose stools Current Visit: Yes Status: Acute Code(s): R19.5 - OTHER FECAL ABNORMALITIES SNOMED Code(s): 795764210 Comment: -possibly adverse reaction of antibiotics -only two episodes -collected stool cultures and will continue to monitor -ordered probiotic (5) Altered mental status Current Visit: Yes Status: Acute Code(s): R41.82 - ALTERED MENTAL STATUS, UNSPECIFIED SNOMED Code(s): 588340572 Comment: -resolved today -likely was metabolic encephalopathy 2/2 pneumonia (6) History of CVA (cerebrovascular accident) Current Visit: No Status: Acute Code(s): Z86.73 - PRSNL HX OF TIA (TIA), AND CEREB INFRC W/O RESID DEFICITS SNOMED Code(s): 091761190 Comment: -continue plavix (7) CAD (coronary artery disease) Current Visit: No Status: Chronic Code(s): I25.10 - ATHSCL HEART DISEASE OF [place] CORONARY ARTERY W/O ANG PCTRS SNOMED Code(s): 48726162 Comment: -continue plavix (8) Diabetes Current Visit: No Status: Chronic Code(s): E11.9 - TYPE 2 DIABETES MELLITUS WITHOUT COMPLICATIONS SNOMED Code(s): 79785831 Comment: -continue home glargine -lispro SS -checking A1c tomorrow (9) HTN (hypertension) Current Visit: No Status: Chronic Code(s): I10 - ESSENTIAL (PRIMARY) HYPERTENSION SNOMED Code(s): 77753066 Comment: - Continue his home amlodipine, coreg, Imdur (10) Hypothyroidism Current Visit: No Status: Chronic Code(s): E03.9 - HYPOTHYROIDISM, UNSPECIFIED SNOMED Code(s): 10835181 Comment: -home synthroid (11) Anemia Current Visit: No Status: Acute Code(s): D64.9 - ANEMIA, UNSPECIFIED SNOMED Code(s): 497089754 Comment: -chronic in setting of myeloma and CKD -checking B12 and folate given macrocytic (12) Full code status Current Visit: No Status: Acute Code(s): Z78.9 - OTHER SPECIFIED HEALTH STATUS SNOMED Code(s): 074498613 (13) DVT prophylaxis Current Visit: No Status: Acute Code(s): RNY4698 - SNOMED Code(s): 678086332 Comment: -nuha
--- NOTE | 2019-07-28 14:39 | ECHO ---
*[facility]* [place] [address] Fax #: [phone] Transthoracic Echocardiogram Patient: Thad Loaiza : 1950 Study Date: 07/28/2019 Age: 69 Gender: M HR: 68 bpm Height: 64 in /162.6 cm BSA: 2.16 m^2 Weight: 251.5 lb /114.3 kg BMI: 43.3 kg/m^2 *Machine Learning Intern: * Brianda Masters RD *Referring Physician: * Mile Britt *Reading Physician: * Jaya Hansen MD Indications: Congestive Heart Failure. History: Prior cerebrovascular accident,altered mental status,CKD. Coronary artery disease. Risk factors: Hypertension. Diabetes mellitus. Conclusions Summary: - Left ventricle: Systolic function is at the lower limits of normal. The estimated ejection fraction is 50-55%. Wall motion is normal; there are no regional wall motion abnormalities. - Right ventricle: Systolic function is normal. - Mitral valve: There is moderate regurgitation. - Aortic valve: There is no evidence of stenosis. There is no significant regurgitation. - Tricuspid valve: There is mild regurgitation. - Pericardium, extracardiac: There is no pericardial effusion. - Pulmonary arteries: Systolic pressure can not be accurately estimated. - Compared to study of09/03/18, there is little change. Study data: Transthoracic echocardiogram. Procedure: Transthoracic echocardiography was performed. Image quality was adequate. The study was technically limited due to body habitus. Intravenous Definity , 3.5 mlswas administered. Image enhancement administered by Complete 2D, spectral Doppler, and color flow Doppler. Patient status: Inpatient. Patient room number: 443-2. Rhythm: Normal sinus rhythm. Findings Left ventricle: The cavity size is normal. Wall thickness is mildly increased. Systolic function is at the lower limits of normal. The estimated ejection fraction is 50-55%. Wall motion is normal; there are no regional wall motion abnormalities. There is no consistent Doppler evidence of clinically significant diastolic dysfunction. Right ventricle: Well visualized. The cavity size is normal. Wall thickness is normal. Systolic function is normal. Ventricular septum: Well visualized. The ventricular septum is normal. Left atrium: Well visualized. The atrium is mildly to moderately dilated. Right atrium: Well visualized. The atrium is mildly dilated. Atrial septum: Well visualized. No defect or patent foramen ovale is identified. Mitral valve: Well visualized. The leaflets are mildly thickened. No echocardiographic evidence for prolapse. There is no evidence of stenosis. There is moderate regurgitation. Aortic valve: Well visualized. The valve is trileaflet. The leaflets are normal thickness. There is no evidence of stenosis. There is no significant regurgitation. Tricuspid valve: Well visualized. The leaflets are normal thickness. There is no evidence of stenosis. There is mild regurgitation. Pulmonic valve: Not well visualized. The leaflets are normal thickness. There is no evidence of stenosis. There is trace regurgitation. Aorta: The aorta is poorly visualized. Pericardium: There is no pericardial effusion. No evidence of pleural fluid accumulation. Pulmonary arteries: Not well visualized. Systolic pressure can not be accurately estimated. Systemic veins: Not well visualized. Pulmonary veins: Visualization of the pulmonary venous anatomy is incomplete, but a significant abnormality is unlikely. Measurements Left ventricle Value Ref Right atrium continued Value Ref LUIS DANIEL, LAX 4.6 cm 4.2 - SI dim, ES, A4C (H) 5.9 cm 3.4 - 5.8 5.3 ESD, LAX 2.6 cm 2.5 - SI dim/bsa, ES, 2.8 cm/m^2 1.8 - 4.0 A4C 3.0 FS, LAX 43 % 25 - 43 Estimated RAP 8 mm Hg -------- PW, ED, LAX (H) 1.2 cm 0.6 - 1.0 Aortic valve Value Ref FS 42 % 25 - 43 Samuel diam, ED 2.6 cm -------- Mid-wall FS 15 % -------- Samuel diam/bsa, ED 1.2 cm/m^2 -------- PW, ED (H) 1.2 cm 0.6 - Peak v, S 1.36 m/sec -------- 1.0 VTI, S 26.5 cm -------- PW/ID, ED 0.26 -------- Mean grad, S 3.0 mm Hg -------- E', lat samuel, TDI 35.9 cm/sec >=10.0 Peak grad, S 7.0 mm Hg - ------- E/e', lat samuel, TDI 4 -------- LVOT/AV, VTI ratio 0.81 ---- ---- E', med samuel, TDI 47.8 cm/sec >=7.0 E/e', med samuel, TDI 3 -------- Mitral valve Value Ref E', avg, TDI 41.9 cm/sec -------- Peak E 1.33 m/sec ---- ---- E/e', avg, TDI 3 <=14 Peak A 0.53 m/sec - ------- Decel time 238 ms -------- LVOT Value Ref Peak grad, D 7.1 mm Hg -------- Peak amairani, S 1.09 m/sec -------- Peak E/A ratio 2.5 -------- VTI, S 21.4 cm -------- Mean grad, S 2 mm Hg -------- Pulmonic valve Value Ref Peak v, S 0.91 m/sec -------- Ventricular septum Value Ref Peak grad, S 3.0 mm Hg -------- IVS, ED (H) 1.4 cm 0.6 - 1.0 Tricuspid valve Value Ref TR peak v 2.51 m/sec <=2.8 Right ventricle Value Ref Peak RV-RA grad, S 25 mm Hg -------- LUIS DANIEL, LAX 4.2 cm -------- Max TR amairani 2.51 m/sec -------- LUIS DANEIL minor ax, A4C 3.5 cm 1.9 - mid 3.5 Aortic root Value Ref Root diam 3.8 cm <4.3 Left atrium Value Ref Root max diam, ED 3.8 cm <4.3 ML dim, A4C 5.2 cm -------- SI dim, A4C 6.1 cm -------- Ascending aorta Value Ref Vol/bsa, ES, 1-p 34 ml/m^2 12 - 37 AAo AP diam, S 3.7 cm -------- A4C AAo AP diam/bsa, S 1.7 cm/m^2 -------- Vol/bsa, ES, A/L 32 ml/m^2 16 - 34 Right atrium Value Ref SI dim, ES (H) 5.9 cm 3.4 - 5.3 ML dim, ES, A4C (H) 4.6 cm 2.6 - 4.4 Legend: (L) and (H) jonnathan values outside specified reference range. Prepared and electronically signed by Jaya Hansen MD 07/28/2019 14:38
[2019-07-28] MEDS: cefTRIAXone(*) 1 GM in NS 0.9% 50 ML* 50 ML IVPB SCH (15:50)
[2019-07-28] MEDS: Lactobacillus Acidophilus* 1 TAB PO SCH (15:51)
[2019-07-28] MEDS: Azithromycin 500 mg/250 ml NS 500 MG/250 ML BAG IVPB SCH (16:31)
[2019-07-28] MEDS: Enoxaparin(*) 30 MG/0.3 ML SYR SUBCUT SCH (16:36)
[2019-07-28] MEDS: Atorvastatin* 80 MG TAB PO SCH (16:36)
[2019-07-28] MEDS ORDERED: Insulin GLARGINE(*) 1 UNITS UNIT SUBCUT SCH (21:00)
[2019-07-28] MEDS: Lidocaine Patch REMOVE* 1 NOTE MISC PATCH OFF SCH (21:26)
[2019-07-28] MEDS ORDERED: Insulin GLARGINE(*) 1 UNITS UNIT SUBCUT ONE (23:00)
[2019-07-28 23:19] LABS: Troponin I 0.04 ng/mL (<0.04)
[2019-07-29] MEDS ORDERED: Nitroglycerin TAB 0.4 MG* 0.4 MG TAB ONE (03:28)
[2019-07-29] MEDS: Nitroglycerin TAB 0.4 MG* 0.4 MG TAB SL PRN ×2 (03:30→04:42)
[2019-07-29 08:07] LABS: BUN/Creatinine Ratio 14.9 (8-20); EGFR African American 27.2 (>60); EGFR Non-African American 22.5 (>60); Potassium 4.2 mmol/L (3.5-5.0)
[2019-07-29] MEDS: Mometasone/Formoter 100/5 MDI INH SCH ×2 (08:41→23:23)
[2019-07-29] MEDS: Lidocaine PATCH 5%* 1 PATCH TRANSDERM SCH (08:54)
[2019-07-29] MEDS: guaiFENesin ER TAB 600 MG PO SCH ×2 (08:55→21:35)
[2019-07-29] MEDS: Pantoprazole TAB * 40 MG TAB PO SCH (08:55)
[2019-07-29] MEDS: Isosorbide Mononitrate ER TAB* 60 MG PO SCH (08:55)
[2019-07-29] MEDS: amLODIPine TAB* 5 MG PO SCH (08:55)
[2019-07-29] MEDS: Insulin LISPRO* 1 UNITS UNIT SUBCUT SCH ×4 (08:55→21:32)
[2019-07-29] MEDS: Carvedilol TAB* 25 MG PO SCH ×2 (08:55→16:32)
[2019-07-29] MEDS: Clopidogrel TAB* 75 MG PO SCH (08:55)
[2019-07-29] MEDS: Gabapentin CAP(*) 300 MG PO SCH ×2 (08:55→21:34)
[2019-07-29] MEDS: Levothyroxine TAB* 75 MCG TAB PO SCH (08:56)
[2019-07-29] MEDS: Lactobacillus Acidophilus* 1 TAB PO SCH (08:56)
[2019-07-29] MEDS: Cholecalciferol TAB* 1000 UNITS PO SCH ×2 (08:56→21:34)
--- NOTE | 2019-07-29 12:25 | PN ---
Subjective Date of Service: 07/29/19 Interval History: Patient feels improved today. Feels his breathing is comfortable. Cough is improved and no longer productive. Denies fever/chills, chest pain, abd pain. Objective Active Medications: Acetaminophen (Tylenol Tab*) 650 mg PO Q4H PRN PRN Reason: MILD PAIN or TEMP > 100.4 Albuterol (Ventolin Hfa Inhaler*) 1 puff INH .Q4-6H PRN PRN Reason: SHORTNESS OF BREATH Albuterol/Ipratropium (Duoneb (Albuterol 2.5 Mg/Ipratropium 0.5 Mg)) 1 neb INH [id number] AWAKE PRN PRN Reason: sob/wheexing Alprazolam (Xanax Tab*) 0.5 mg PO BID PRN PRN Reason: ANXIETY Amlodipine Besylate (Norvasc Tab*) 5 mg PO DAILY [facility] Last Admin: 07/29/19 08:55 Dose: 5 mg Atorvastatin Calcium (Lipitor*) 80 mg PO 1700 [facility] Last Admin: 07/28/19 16:36 Dose: 80 mg Benzonatate (Tessalon Cap*) 100 mg PO TID PRN PRN Reason: COUGH Carvedilol (Coreg Tab*) 25 mg PO BID WITH MEALS [facility] Last Admin: 07/29/19 08:55 Dose: 25 mg Cholecalciferol (Vitamin D Tab*) 2,000 units PO BID [facility] Last Admin: 07/29/19 08:56 Dose: 2,000 units Clopidogrel Bisulfate (Plavix Tab*) 75 mg PO DAILY [facility] Last Admin: 07/29/19 08:55 Dose: 75 mg Dextrose (Dextrose 50% Vial 50 Ml*) 25 ml IV PUSH .FOR FS < 60 - SS PRN PRN Reason: FS < 60 Enoxaparin Sodium (Lovenox(*)) 30 mg SUBCUT Q24H [facility] Last Admin: 07/28/19 16:36 Dose: 30 mg Gabapentin (Neurontin Cap(*)) 300 mg PO BID [facility] Last Admin: 07/29/19 08:55 Dose: 300 mg Guaifenesin (Mucinex*) 600 mg PO BID [facility] Last Admin: 07/29/19 08:55 Dose: 600 mg Azithromycin (Zithromax 500 Mg/250 Ml) 500 mg in 250 mls @ 250 mls/hr IVPB Q24H [facility] Last Admin: 07/28/19 16:31 Dose: 250 mls/hr Ceftriaxone Sodium 1 gm/ (Sodium Chloride) 50 mls @ 100 mls/hr IVPB Q24H [facility] Last Admin: 07/28/19 15:50 Dose: 100 mls/hr Insulin Glargine (Lantus(*)) 60 units SUBCUT QPM@1800 [facility] Insulin Human Lispro (Humalog*) 0 units SUBCUT ACHS [facility]; Protocol Last Admin: 07/29/19 11:41 Dose: 12 units Isosorbide Mononitrate (Imdur Er Tab*) 120 mg PO DAILY [facility] Last Admin: 07/29/19 08:55 Dose: 120 mg Lactobacillus Rhamnosus (Lactobacillus Acidophilus*) 1 tab PO DAILY [facility] Last Admin: 07/29/19 08:56 Dose: 1 tab Levothyroxine Sodium (Synthroid Tab*) 75 mcg PO DAILY [facility] Last Admin: 07/29/19 08:56 Dose: 75 mcg Lidocaine (Lidoderm 5% Patch*) 1 patch TRANSDERM DAILY [facility] Last Admin: 07/29/19 08:54 Dose: 1 patch Magnesium Hydroxide (Milk Of Magnfrancisco Liq*) 30 ml PO Q4H PRN PRN Reason: CONSTIPATION Mometasone Furoate/Formoterol Fumar (Dulera 100/5 Mdi*) 1 puff INH BID [facility] Last Admin: 07/29/19 08:41 Dose: 1 puff Nitroglycerin (Nitroglycerin Tab 0.4 Mg*) 0.4 mg SL Q5M PRN PRN Reason: ANGINA Last Admin: 07/29/19 04:42 Dose: 0.4 mg Pantoprazole Sodium (Protonix Tab*) 40 mg PO DAILY [facility] Last Admin: 07/29/19 08:55 Dose: 40 mg Pharmacy Profile Note (Lidocaine Patch Remove*) 1 note PATCH OFF 2100 [facility] Last Admin: 07/28/19 21:26 Dose: 1 note Simethicone (Mylicon Tab*) 80 mg PO Q6H PRN PRN Reason: abdomen pain Last Admin: 07/28/19 13:46 Dose: 80 mg Vital Signs - 8 hr 07/29/19 07/29/19 07/29/19 04:43 06:47 08:00 Temperature 98.1 F Pulse Rate 78 Respiratory 24 20 18 Rate Blood Pressure 146/62 160/67 (mmHg) O2 Sat by Pulse 97 Oximetry 07/29/19 07/29/19 07/29/19 08:43 08:55 11:03 Temperature Pulse Rate 80 Respiratory 20 20 18 Rate Blood Pressure (mmHg) O2 Sat by Pulse 95 Oximetry Oxygen Devices in Use Now: Nasal Cannula Appearance: Obese, elderly, white male, sitting upright on side of bed, appearing in NAD Eyes: No Scleral Icterus, PERRLA Ears/Nose/Mouth/Throat: Mucous Membranes Moist Neck: NL Appearance and Movements; NL JVP Respiratory: Symmetrical Chest Expansion and Respiratory Effort, Clear to Auscultation Cardiovascular: NL Sounds; No Murmurs; No JVD, RRR Abdominal: - - abd soft, nontender, nondistended Extremities: No Edema, No Clubbing, Cyanosis Skin: No Rash or Ulcers Neurological: Alert and Oriented x 3, NL Muscle Strength and Tone Result Diagrams: 07/28/19 06:00 07/29/19 06:25 Microbiology and Other Data: Microbiology 07/27/19 14:36 Aerobic Blood Culture - Preliminary Blood Venous No Growth Day 1 Anaerobic Blood Culture - Preliminary No Growth Day 1 07/27/19 14:36 Aerobic Blood Culture - Preliminary Blood Venous No Growth Day 1 Anaerobic Blood Culture - Preliminary No Growth Day 1 Assess/Plan/Problems-Billing Assessment: 69 yo white male with PMHx COPD on 3L oxygen overnight, CAD, CVA, HFpEF, HTN, CKD, Rehman's palsy, hypothyroidism, DMT2 presents with altered mental status found to have pneumonia and CHF exacerbation. - Patient Problems (1) Acute kidney injury superimposed on chronic kidney disease Current Visit: Yes Status: Acute Code(s): N17.9 - ACUTE KIDNEY FAILURE, UNSPECIFIED; N18.9 - CHRONIC KIDNEY DISEASE, UNSPECIFIED SNOMED Code(s): 47561761 Comment: -patient seen last month by Dr. Campbell, who noted M-spike and recommended follow up with Dr. Loya -likely recurrence of multiple myeloma -Dr. Campbell recommends avoiding further diuresis at this point -continue to monitor BUN/Cr -avoiding IVF at this time because patient arrived with decompensated CHF - ordered quantitative immunoglobulins which is pending. If they are <500 he will likely need IVIG and heme/onc should be consulted (2) Acute respiratory failure with hypoxia Current Visit: No Status: Acute Code(s): J96.01 - ACUTE RESPIRATORY FAILURE WITH HYPOXIA SNOMED Code(s): 22283390 Comment: -likely 2/2 combination of decompensated CHF plus pneumonia -currently with good saturations on 4L oxygen. Uses 3L oxygen overnight only at home. Will attempt to wean O2 today (3) Pneumonia Current Visit: Yes Status: Acute Code(s): J18.9 - PNEUMONIA, UNSPECIFIED ORGANISM SNOMED Code(s): 766816768 Comment: -left infiltrate on CXR at admission -continue ceftriaxone and azithromycin -afebrile thus far today, leukocytosis resolved. Initially meeting signs of sepsis which is now resolved (4) Acute on chronic diastolic (congestive) heart failure Current Visit: No Status: Acute Code(s): I50.33 - ACUTE ON CHRONIC DIASTOLIC (CONGESTIVE) HEART FAILURE SNOMED Code(s): 482742965 Comment: -appears euvolemic today. Lungs are clear without LE edema -holding home torsemide considering AVERY on CKD -echo with EF 50-55%, no wall motion abnormalities, and actually no longer with diastolic dysfunction (5) Loose stools Current Visit: Yes Status: Acute Code(s): R19.5 - OTHER FECAL ABNORMALITIES SNOMED Code(s): 639886097 Comment: -possibly adverse reaction of antibiotics -only two episodes -collected stool cultures and will continue to monitor -ordered probiotic -no complaints today (6) History of CVA (cerebrovascular accident) Current Visit: No Status: Acute Code(s): Z86.73 - PRSNL HX OF TIA (TIA), AND CEREB INFRC W/O RESID DEFICITS SNOMED Code(s): 288553269 Comment: -continue plavix (7) CAD (coronary artery disease) Current Visit: No Status: Chronic Code(s): I25.10 - ATHSCL HEART DISEASE OF [place] CORONARY ARTERY W/O ANG PCTRS SNOMED Code(s): 54622080 Comment: -continue plavix (8) Diabetes Current Visit: No Status: Chronic Code(s): E11.9 - TYPE 2 DIABETES MELLITUS WITHOUT COMPLICATIONS SNOMED Code(s): 60922570 Comment: -continue home glargine -lispro SS -checking A1c tomorrow (9) HTN (hypertension) Current Visit: No Status: Chronic Code(s): I10 - ESSENTIAL (PRIMARY) HYPERTENSION SNOMED Code(s): 40315050 Comment: - Continue his home amlodipine, coreg, Imdur (10) Hypothyroidism Current Visit: No Status: Chronic Code(s): E03.9 - HYPOTHYROIDISM, UNSPECIFIED SNOMED Code(s): 06800490 Comment: -home synthroid (11) Anemia Current Visit: No Status: Acute Code(s): D64.9 - ANEMIA, UNSPECIFIED SNOMED Code(s): 778760703 Comment: -chronic in setting of myeloma and CKD -checking B12 and folate given macrocytic (12) Full code status Current Visit: No Status: Acute Code(s): Z78.9 - OTHER SPECIFIED HEALTH STATUS SNOMED Code(s): 418629778 (13) DVT prophylaxis Current Visit: No Status: Acute Code(s): FNA5372 - SNOMED Code(s): 344137041 Comment: -lovenox Status and Disposition: Pending medical improvement
[2019-07-29 14:21] LABS: Urine Chloride Concentration < 22 mmol/L; Urine Creatinine Concentration 132.06 mg/dL; Urine Potassium Concentration 51.1 mmol/L; Urine Sodium Concentration 28 mmol/L
[2019-07-29] MEDS: cefTRIAXone(*) 1 GM in NS 0.9% 50 ML* 50 ML IVPB SCH (14:52)
[2019-07-29] MEDS: Enoxaparin(*) 30 MG/0.3 ML SYR SUBCUT SCH (15:48)
[2019-07-29] MEDS: Azithromycin 500 mg/250 ml NS 500 MG/250 ML BAG IVPB SCH (15:48)
[2019-07-29] MEDS ORDERED: Ondansetron INJ* 2 MG/ML VIAL IV PRN (16:16)
[2019-07-29] MEDS: Atorvastatin* 80 MG TAB PO SCH (16:32)
[2019-07-29] MEDS ORDERED: Insulin GLARGINE(*) 1 UNITS UNIT SUBCUT SCH (18:00)
[2019-07-29] MEDS: predniSONE TAB* 50 MG PO SCH (21:35)
[2019-07-29] MEDS: Lidocaine Patch REMOVE* 1 NOTE MISC PATCH OFF SCH (21:35)
[2019-07-30 07:01] LABS: ABS Lymphocytes 0.6 10^3/ul (1.0-4.8); ABS Monocytes 0.1 10^3/ul (0-0.8); ABS Neutrophils 5.6 10^3/ul (1.5-7.7); Eosinophil % 0.2 %; Hematocrit 21 % (42-52); Hemoglobin 7.2 g/dL (14.0-18.0); Lymphocyte % 9.1 %; Mean Corpuscular HGB Conc 34 g/dL (31-36); Mean Corpuscular Hemoglobin 33 pg (27-31); Mean Corpuscular Volume 97 fL (80-94); Red Blood Count 2.19 10^6 /uL (4.18-5.48); Red Cell Distribution Width 20 % (10-15); White Blood Count 6.3 10^3/uL (3.5-10.8)
[2019-07-30 07:13] LABS: EGFR African American 26.3 (>60); EGFR Non-African American 21.8 (>60)
[2019-07-30] MEDS: Mometasone/Formoter 100/5 MDI INH SCH (07:28)
[2019-07-30 08:05] LABS: Mean Platelet Volume 8.9 fL (7.4-10.4); Platelet Count 127 10^3/uL (150-450)
[2019-07-30 08:25] LABS: Potassium 5.1 mmol/L (3.5-5.0)
[2019-07-30] MEDS: Insulin LISPRO* 1 UNITS UNIT SUBCUT SCH ×2 (09:42→14:03)
[2019-07-30] MEDS: Isosorbide Mononitrate ER TAB* 60 MG PO SCH (09:44)
[2019-07-30] MEDS: Lactobacillus Acidophilus* 1 TAB PO SCH (09:45)
[2019-07-30] MEDS: Gabapentin CAP(*) 300 MG PO SCH (09:45)
[2019-07-30] MEDS: Carvedilol TAB* 25 MG PO SCH (09:45)
[2019-07-30] MEDS: Cholecalciferol TAB* 1000 UNITS PO SCH (09:46)
[2019-07-30] MEDS: Clopidogrel TAB* 75 MG PO SCH (09:47)
[2019-07-30] MEDS: guaiFENesin ER TAB 600 MG PO SCH (09:47)
[2019-07-30] MEDS: Pantoprazole TAB * 40 MG TAB PO SCH (09:48)
[2019-07-30] MEDS: Levothyroxine TAB* 75 MCG TAB PO SCH (09:48)
[2019-07-30] MEDS: predniSONE TAB* 50 MG PO SCH (09:48)
[2019-07-30] MEDS: amLODIPine TAB* 5 MG PO SCH (09:49)
[2019-07-30] MEDS: Lidocaine PATCH 5%* 1 PATCH TRANSDERM SCH (09:50)
[2019-07-30] MEDS ORDERED: Furosemide IV* 10 MG/ML 10 ML VIAL (100 MG) IV ONE (10:15)
[2019-07-30 11:30] VITALS: BP 148/64
--- NOTE | 2019-07-30 19:24 | DS ---
CC: Aditya Weston NP; Dr. Agusto Cruz; Dr. Thad Loya; Dr. Ruiz * DISCHARGE SUMMARY: DATE OF ADMISSION: 07/27/19 DATE OF DISCHARGE: 07/30/19 PRIMARY CARE PROVIDER: Aditya Weston NP [employer] SECRETARY: Agusto Cruz DO ONCOLOGIST: Thad Loya MD WIRE PREPARATION WORKER: Dr. Ruiz. ATTENDING PHYSICIAN: Cat Macias MD * (DICTATED BY JORDAN HOBBS NP) PRIMARY DIAGNOSES: 1. Acute on chronic kidney injury, baseline CKD stage 4. 2. Acute on chronic hypoxic respiratory failure. 3. Community-acquired pneumonia. 4. Acute on chronic diastolic congestive heart failure. SECONDARY DIAGNOSES: 1. Chronic obstructive pulmonary disease. 2. History of cerebrovascular accident. 3. Coronary artery disease. 4. Hypertension. 5. Hypothyroidism. 6. Anemia. 7. Multiple myeloma. 8. Diabetes mellitus type 2. 9. Obstructive sleep apnea. STUDIES WHILE IN THE HOSPITAL: 1. Brain CT on 07/27/19 reads as no evidence for gross acute infarct, mass effect, or hemorrhage, old lacunar infarct in the left thalamus. 2. Chest x-ray on 07/27/19 reads as low lung volumes, left basilar infiltrate. 3. EKG on 07/27/19 shows sinus tachycardia with a rate of 101, QTc 415. This EKG appears similar to the previous EKG on file. 4. Transthoracic echocardiogram on 07/28/19 reads as left ventricular systolic function within the lower limits of normal, the estimated ejection fraction of 50 to 55%, wall motion is normal and there are no regional wall motion abnormalities. Right ventricular systolic function is normal. There is moderate mitral regurgitation. There is no evidence of aortic stenosis. There is no significant aortic regurgitation. There is mild tricuspid regurgitation. There is no pericardial effusion. Systolic pressure in the pulmonary arteries cannot be currently estimated. Compared to the study of 09/03/18, there is a little change. 5. EKG on 07/28/19 shows normal sinus rhythm with a rate of 72, QTc 430. 6. EKG on 07/29/19 shows normal sinus rhythm with a rate of 80, QTc 430. HISTORY OF PRESENT ILLNESS AND HOSPITAL COURSE: Mr. Loaiza is a 69-year-old male with past medical history of coronary artery disease, diastolic heart failure, CVA, hypertension, GERD, multiple myeloma, COPD, chronic kidney disease stage 4, obstructive sleep apnea, and diabetes who presented to the emergency room on 07/27/19 with complaints of cough and fever. Please see the history and physical by Mile Britt NP for a complete summary of the events leading up to this hospitalization. In short, the patient arrived to the emergency room with altered mental status, fevers, and chills. The patient does have some baseline Rehman's palsy, but the patient's was concerned that he was having a stroke and so a Code [place] was called. Stroke was also mainly ruled out and it was determined that the patient's symptoms were secondary to a left lower lobe pneumonia noted on x-ray. He had imaging as noted above. In the emergency room, he was noted to have anemia consistent with his baseline and an elevated creatinine, also mostly consistent with his baseline. He was requiring 5 L of oxygen to maintain saturations in the 90s and for that reason, he was admitted by the hospitalist service. There was additionally some concern for fluid overload and so the patient was given 1 dose of Bumex in the ED. He was started on ceftriaxone and azithromycin to cover community-acquired pneumonia. The patient showed somewhat slow improvement and even as of yesterday was requiring 4 L of oxygen to maintain saturations. The patient does typically wear 3 L of oxygen during the night at home, although is on room air during the day and so this was a change for him. He was started on prednisone because of this acute on chronic respiratory failure in the presence of COPD. He was not given any further diuresis because of concern for his kidney function. Creatinine did spike today at 2.89 and the patient's baseline creatinine appears to be around 2.5. Quantitative immunoglobulins were sent out, though not back as of the time of this dictation. Hemoglobin today did drop to 7.2 and for that reason, his stool occult was checked, which was noted to be negative, so I suspect that this anemia is simply related to his CKD and multiple myeloma as there is no evidence of acute blood loss. Today, the patient was able to ambulate with his nurse around the unit on room air and maintain saturations of 88% and above. He is feeling well and is hopeful that he will be discharged today. On exam, he is alert and oriented x4. He has no focal neurological deficits. His heart has a regular rate and rhythm without murmurs, rubs, or gallops. Lungs are diminished but clear to auscultation without rhonchi, wheezes, or rubs. There is 2+ edema to the lower extremities, which the patient states is increased from his baseline. He does report that he typically has some degree of edema to his lower extremities. For that reason, I did give the patient 1 dose of furosemide today. It is not entirely clear to me the cause of this acute on chronic kidney injury. Initially, it was thought as though his kidney function would not benefit from diuresis, though at this point, the patient does have significant lower extremity edema and ultimately creatinine may be bumped due to fluid overload, so I think it is reasonable to give a dose of Lasix today. Troponins were also noted to be elevated during this admission peaking at 0.07, although I suspect that this is just demand ischemia secondary to pneumonia and respiratory failure. Mr. Loaiza is stable for discharge today. Vital signs are as follows: Temperature 97.4, heart rate 66, respiratory rate 16, oxygen saturation 92% on room air, blood pressure 148/64. DISCHARGE MEDICATIONS: New medications: 1. Azithromycin 250 mg p.o. x2 days. 2. Cefdinir 300 mg p.o. b.i.d. x4 days. 3. Prednisone 10 mg tab taper (4 tabs for 2 days and 3 tabs for 2 days and 2 tabs for 2 days and 1 tab for 2 days). Continued medications: 1. Albuterol MDI 1 puff q.4 hours p.r.n. shortness of breath. 2. Alprazolam 0.5 mg p.o. b.i.d. p.r.n. anxiety. 3. Amlodipine 5 mg p.o. daily. 4. Atorvastatin 80 mg p.o. daily. 5. Tessalon 100 mg p.o. t.i.d. p.r.n. cough. 6. Symbicort 80/4.5 one puff b.i.d. 7. Carvedilol 25 mg p.o. b.i.d. 8. Cholecalciferol 2000 units p.o. b.i.d. 9. Plavix 75 mg p.o. daily. 10. Gabapentin 300 mg p.o. b.i.d. 11. Glargine 60 units subcu daily. 12. Isosorbide mononitrate 120 mg p.o. daily. 13. Lansoprazole 15 mg p.o. daily. 14. Levothyroxine 75 mcg p.o. daily. 15. Acetaminophen 500 mg p.o. q.6 hours p.r.n. fever. 16. Lispro 18 units subcu a.c. 17. Lidocaine patch 5% one patch transdermal daily. 18. Multivitamin 1 tab p.o. daily. 19. Nitro 0.4 mg sublingual q.5 minutes p.r.n. angina. 20. Nystatin cream 1 application topically t.i.d. 21. Torsemide 20 mg p.o. daily. 22. Triamcinolone 0.5% one application topically b.i.d. DISCHARGE PLAN: Mr. Loaiza will be discharged home. Activity will be as tolerated. Diet will be heart healthy. Medications were noted above. The patient has been prescribed an additional 2 days of azithromycin to complete a total of 5 days and an additional 4 days of cefdinir to complete a total of 7 days of cephalosporins for his community-acquired pneumonia. I additionally have prescribed a short prednisone taper as he was started on prednisone here in the hospital. He can continue his other usual medications as noted above. I do not see any reason to stop his diuretics at this point due to his kidney disease because based on his lower extremity edema, it is quite obvious that he does need a diuretic. I will leave further management of this up to the patient 's outpatient providers. Additionally at this time, immunoglobulins are still pending as these labs are sent out and so the primary care provider will need to follow up on these results. The patient can continue using his usual oxygen at night. I have provided him with an order for a BMP to be completed in 3 days to recheck his kidney function. Results of that will go to his primary care provider who he will see next week. The patient has been advised to return to the emergency room or nearest hospital for any worsening of symptoms, shortness of breath, lightheadedness, dizziness, chest discomfort, high fevers, chills, night sweats, loss of consciousness, or any other worrisome signs or symptoms. DISCHARGE CONDITION: Stable. DISCHARGE DISPOSITION: Home. This is a summarized report of a complex medical history and hospital stay. For further details, please see the entire medical record. TIME SPENT: Approximately 50 minutes was spent on this discharge. JORDAN HOBBS NP [id number]/[facility] #: [id number] CAM
[2019-07-31 10:55] LABS: Immunoglobulin A 51 mg/dL (61 - 356); Immunoglobulin G 3010 mg/dL (767 - 1590); Immunoglobulin M 28 mg/dL (37 - 286)
== END 2019-07-30 14:30 | disposition home or self-care (01) | DRG 139 ==
LOC: ED 12:35 → MEDTELE 15:41
PROVIDERS: ADMIT Hospitalist; ATTEND Internal Medicine
DX: J18.9 Pneumonia, unspecified organism (principal); I50.33 Acute on chronic diastolic (congestive) heart failure; J96.21 Acute and chronic respiratory failure with hypoxia; I13.0 Hypertensive heart and chronic kidney disease with heart failure and stage 1 through stage 4 chronic kidney disease, or unspecified chronic kidney disease; J44.0 Chronic obstructive pulmonary disease with (acute) lower respiratory infection; I24.8 Other forms of acute ischemic heart disease; N18.4 Chronic kidney disease, stage 4 (severe); N17.9 Acute kidney failure, unspecified; C90.00 Multiple myeloma not having achieved remission; J44.1 Chronic obstructive pulmonary disease with (acute) exacerbation; Z68.41 Body mass index [BMI] 40.0-44.9, adult; E11.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mellitus with diabetic chronic kidney disease; I25.10 Atherosclerotic heart disease of native coronary artery without angina pectoris; E78.00 Pure hypercholesterolemia, unspecified; E78.5 Hyperlipidemia, unspecified; K21.9 Gastro-esophageal reflux disease without esophagitis; M19.011 Primary osteoarthritis, right shoulder; M47.819 Spondylosis without myelopathy or radiculopathy, site unspecified; E11.42 Type 2 diabetes mellitus with diabetic polyneuropathy; F41.9 Anxiety disorder, unspecified; F32.9 Major depressive disorder, single episode, unspecified; R29.705 NIHSS score 5; G51.0 Bell's palsy; I08.1 Rheumatic disorders of both mitral and tricuspid valves; E66.9 Obesity, unspecified; R51 Headache; Z86.73 Personal history of transient ischemic attack (TIA), and cerebral infarction without residual deficits; E03.9 Hypothyroidism, unspecified; G47.33 Obstructive sleep apnea (adult) (pediatric); D63.1 Anemia in chronic kidney disease; F40.240 Claustrophobia; Z98.42 Cataract extraction status, left eye; Z88.0 Allergy status to penicillin; Z88.1 Allergy status to other antibiotic agents; Z95.5 Presence of coronary angioplasty implant and graft; Z87.442 Personal history of urinary calculi; Z85.820 Personal history of malignant melanoma of skin; Z98.41 Cataract extraction status, right eye; Z87.891 Personal history of nicotine dependence; Z86.19 Personal history of other infectious and parasitic diseases; Z82.0 Family history of epilepsy and other diseases of the nervous system; Z79.51 Long term (current) use of inhaled steroids; Z79.02 Long term (current) use of antithrombotics/antiplatelets; Z79.4 Long term (current) use of insulin
CPT/HCPCS: 36415; 70450; 71045; 80048; 80053; 80061; 81003; 81015; 82140; 82272; 82330; 82436; 82570; 82607; 82728; 82746; 82784; 82947; 83036; 83540; 83550; 83605; 83630; 84133; 84300; 84484; 85025; 85610; 85730; 87040; 87045; 87046; 87899; 93005; 93306; 94640; 96365; 96375; 99283; A9270-GY; C8929; J0456; J0696; J1650; J1815; J1940; J2405; J7512

== ENCOUNTER 2019-10-01 21:47 | Inpatient (IN) | payer BC ==
[2019-10-01] MEDS ORDERED: Albuterol/Ipratropium NEB.SOL* Albuterol 2.5 MG/Ipratropium 0.5 MG 3 ML INH ONE ×2 (22:03→22:25)
--- OUTSIDE RECORDS SUMMARY | 2019-10-01 22:08 | XMS REPORT | Continuity of Care Document ---
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 Onset: 09/27/2011 Chest pain Jacqueline Garg D.O. Onset: 02/26/2012 Hyperlipidemia Brianda Butcher NRoyal Onset: 06/04/2012 Benign essential hypertension Brianda Butcher N.Ariel Onset: 06/04/2012 Coronary arteriosclerosis Jacqueline Garg D.O. Onset: 10/30/2012 Angina decubitus Jacqueline Garg D.O. Onset: 09/15/2013 Essential hypertension Jimmie Malone M.D., [facility] Onset: 11/28/2013 Chronic ischemic heart disease Jimmie Malone M.D., [facility] Onset: 2013 Radiation injury Jimmie Malone M.D., [facility] Onset: 11/28/2013 Tremor Andreia Finn M.D. Onset: 03/26/2015 Headache Andreia Finn M.D. Onset: 03/26/2015 Essential hypertension Jimmie Malone M.D., [facility], [facility] Onset: 07/14/2015 Chronic ischemic heart disease, Jimmie Malone M.D., [facility] Onset: 2014 unspecified Carpal tunnel syndrome of right Andreia Finn M.D. Onset: 08/10/2016 wrist Facial palsy Andreia Finn M.D. Onset: 12/14/2016 Snapping thumb syndrome Jericho Herr MD Onset: 08/14/2017 Acquired trigger finger Jericho Herr MD Onset: 08/14/2017 Angina pectoris Jimmie Malone M.D., [facility] Onset: 09/05/2017 Lateral epicondylitis Jericho Herr MD Onset: 09/18/2017 Atherosclerotic heart disease of Jimmie Malone M.D., [facility] Onset: 2016 [place] coronary artery with other forms of angina pectoris Preoperative cardiovascular Jimmie Malone M.D., [facility] Onset: 01/09/2018 examination Polyneuropathy Jude Ramos M.D. Onset: 02/22/2018 Abnormal gait Jude Ramos M.D. Onset: 02/22/2018 Nervous system symptoms Jude Ramos M.D. Onset: 02/22/2018 Chronic fatigue syndrome Jude Ramos M.D. Onset: 02/22/2018 Atherosclerotic heart disease of Jimmie Malone M.D., [facility] Onset: 2017 [place] coronary artery with unspecified angina pectoris Type [...] Use Denies Drug Use Smoking Status Reviewed: 09/15/19 Patient is a former Quit 4 years ago. smoker Used to smoke cigarettes then pipe then cigars. Allergies, Adverse Reactions, Alerts Active Allergies Reaction Severity Comments Date Augmentin diarrhea 09/04/2016 Inactive Allergies NKDA 01/27/2011 Medications Active Medications SIG Qnty Indications Ordering Date Provider Amlodipine Besylate 10 mg by mouth 90tabs I10 [facility] 09/15/2019 daily at bedtime MD Joseph 10mg Tablets Torsemide 1 tab by mouth 60tabs N18.4 [facility] 09/15/2019 20mg Tablets twice daily MD Joseph Ferrous Sulfate 1 tab by mouth 90tabs N18.4 [facility] 08/15/2019 everyother day MD Joseph 325(65Fe) mg Tablets Lantus Solostar inject 60 units 30ml Armin Loja MD 06/27/2018 in at night 100Unit/ML Solution Pen-Inject Pen Regent 1 each with every 200units E11.9 Armin Loja MD 06/27/2018 31G X 6 mm insulin injection [facility] Diabetic Shoes 1 pair of 1units E11.9 Armin Loja MD 06/27/2018 [facility] diabetic shoes for daily use Freestyle place 1 sensor 3units E11.8 Armin Loja MD 06/27/2018 Jamie/Sensor/Flash every 10 days Monitoring System [facility] Freestyle use every 8 hours 1units Armin Loja MD 06/27/2018 Jamie/[place]/Flash with sensor Monitoring System Device Isosorbide 1 by mouth every 90tabs Agusto SPaul 10/28/2014 Mononitrate ER day Cruz, DO FACC 120mg Tablets ER 24HR Prevacid one a day Unknown Symbicort 1 puff twice a Unknown day 160-4.5mcg/Act Aerosol Albuterol Sulfate 1 unit dose via Unknown nebulizer every 4 (2.5mg/3ML) 0.083% hours as needed Nebulizer Humalog Kwikpen 20 units with 18ml E11.22 Armin Loja MD meals,mdd 100 100Unit/ML Solution units Pen-Inject Levothyroxine Sodium 1 tab by mouth Unknown once daily 75mcg Tablets Multi-Vitamins take one tablet Unknown Tablets by mouth every day (supplement) Atorvastatin Calcium 1 by mouth every 90tabs Agutso SPaul day Cruz, DO FACC 80mg Tablets Carvedilol 1 tab by mouth 180tabs Agusto S. 25mg Tablets twice a day [...] Available Vital Signs Date Vital Result Comment 09/15/2019 10:45am Height 65 inches 5'5" Weight 255.00 lb BMI (Body Mass Index) 42.4 kg/m2 08/15/2019 8:59am Height 65 inches 5'5" Weight 254.00 lb Heart Rate 68 /min BP Systolic Sitting 120 mmHg left arm large cuff BP Diastolic Sitting 59 mmHg left arm large cuff O2 % BldC Oximetry 94 % room air BMI (Body Mass Index) 42.3 kg/m2 Results Test Acquired Date Facility Test Result H/L Range Note Urine Culture And 09/11/2019 [facility] Urine Culture SEE RESULT [address] [place] [address] [phone] Laboratory test 09/11/2019 [facility] Creatinine 46.39 mg/dL [place] [address] [phone] Total Protein Random Urine 109 mg/dL Urinalysis Profile 09/11/2019 [facility] Urine Color Straw [address] [place] [address] [phone] Urine Appearance Clear Urine Specific [place] 1.008 Low 1.010-1.030 Urine pH 6.0 Normal 5-9 Urine Urobilinogen Negative Negative Urine Ketones Negative Negative Urine Protein 2+(100 mg/dL) Abnormal Negative Urine Leukocytes Negative Negative Urine Blood 1+ Abnormal Negative Urine Nitrite Negative Negative Urine Bilirubin Negative Negative Urine Glucose 1+(50 mg/dL) Abnormal Negative Urine White Blood Cell Trace(0-5/hpf) Absent Urine Red Blood Cell Trace(0-2/hpf) Absent Urine Bacteria Absent Absent Urine Hyaline Casts Present Abnormal Absent Total Protein 24HR 09/11/2019 [facility] Urine Collection Time [address] [place] [address] [phone] Urine Total Volume 2300 mL Urine TP Concentration 164 mg/dL Urine Total Protein/24HR 3772 mg/24Hr High 0-165 Comp Metabolic 09/11/2019 [facility] Sodium 135 mmol/L Normal 135-[address] [place] [address] [phone] Potassium 4.2 mmol/L Normal 3.5-5.0 Chloride 105 mmol/L Normal 101-111 Co2 Carbon Dioxide 25 mmol/L Normal 22-32 Anion Gap 5 mmol/L Normal 2-11 Glucose 196 mg/dL High 70-100 Blood Urea Nitrogen 37 mg/dL High 6-24 Creatinine 2.71 mg/dL High 0.67-1.17 BUN/Creatinine Ratio 13.7 Normal 8-20 Calcium 8.6 mg/dL Normal 8.6-10.3 Total Protein 7.8 g/dL Normal 6.4-8.9 Albumin 3.3 g/dL Normal 3.2-5.2 Globulin 4.5 g/dL High 2-4 Albumin/Globulin Ratio 0.7 Low 1-3 Total Bilirubin 0.50 mg/dL Normal 0.2-1.0 Alkaline Phosphatase 70 U/L Normal 34-104 Alt 14 U/L Normal 7-52 Ast 15 U/L Normal 13-39 Egfr Non- 23.4 >60 Egfr 28.4 >60 2 CBC Auto 09/11/2019 [facility] White Blood 4.1 10^3/uL Normal 3.5-10.[address] [place] [address] [phone] Red Blood Count 2.43 10^6/uL Low 4.18-5.48 Hemoglobin 7.8 g/dL Low 14.0-18.0 Hematocrit 24 % Low 42-52 Mean Corpuscular Volume 98 fL High 80-94 Mean Corpuscular Hemoglobin 32 pg High 27-31 Mean Corpuscular HGB Conc 33 g/dL Normal 31-36 Red Cell Distribution Width 20 % High 10-15 Platelet Count 139 10^3/uL Low 150-450 Mean Platelet Volume 7.9 fL Normal 7.4-10.4 Abs Neutrophils 2.4 10^3/uL Normal 1.5-7.7 Abs Lymphocytes 1.2 10^3/uL Normal 1.0-4.8 Abs Monocytes 0.3 10^3/uL Normal 0-0.8 Abs Eosinophils 0.1 10^3/uL Normal 0-0.6 Abs Basophils 0.0 10^3/uL Normal 0-0.2 Abs Nucleated RBC 0.0 10^3/uL Granulocyte % 58.7 % Lymphocyte % 30.0 % Monocyte % 7.3 % Eosinophil % 3.5 % Basophil % 0.5 % Nucleated Red Blood Cells % 0.1 Laboratory test 09/11/2019 [facility] Ferritin 137.6 ng/mL Normal 24-[address] [place] [address] [phone] B-Type Natriuretic Peptide BNP 327 pg/mL High <=100 Iron & Iron Binding 09/11/2019 [facility] Iron 62 g/dL Normal 50-212 [place] [address] [phone] Unsaturated Iron Binding < 213 g/dL Total Iron Binding Capacity 228 g/dL Low 250-450 Transferrin 163 mg/dL Low 203-362 % Iron Saturation 27 % Normal 15-55 Laboratory test 09/11/2019 [facility] Albumin 3.3 g/dL Normal 3.2-5.2 [place] [address] [phone] Laboratory test 09/11/2019 [facility] Hemoglobin A1c 6.5 % High 4.0-5.6 3 finding (Glyco HGB) [place] [address] [phone] Neph Routine 09/11/2019 [facility] Total Protein <pending Random Urine > [place] [address] [phone] Creatinine Random Urine <pending> Laboratory test 04/23/2019 [facility] Hemoglobin A1c 7.7 % High 4.0-5.6 4 finding (Glyco HGB) [place] [address] [phone] Fructosamine 237 mcmol/L 200 - 285 5 Basic Metabolic 04/23/2019 [facility] Sodium 137 mmol/L Normal 135-145 [place] [address] [phone] Potassium 4.2 mmol/L Normal 3.5-5.0 Chloride 105 mmol/L Normal 101-111 Co2 Carbon Dioxide 26 mmol/L Normal 22-32 Anion Gap 6 mmol/L Normal 2-11 Glucose 126 mg/dL High 70-100 Blood Urea Nitrogen 36 mg/dL High 6-24 Creatinine 2.60 mg/dL High 0.67-1.17 BUN/Creatinine Ratio 13.8 Normal 8-20 Calcium 8.5 mg/dL Low 8.6-10.3 Egfr Non- 24.7 >60 Egfr 29.9 >60 6 Laboratory 04/23/2019 [facility] TSH (Thyroid 1.22 Normal 0.34 -5.60 test finding Stim Horm) mcIU/[place] [address] [phone] 1 SEE RESULT BELOW Name: THAD LOAIZA : [address]: Narinder Ruiz MD Acct: [id number] Unit: [id number] AGE: 69 Location: LAB Re09/11/19 SEX: M Status: REG REF SPEC: [id number] ANTOINE: 09/11/[address]: Narinder Ruiz MD REQ: [id number] RECD: 09/11/19 STATUS: COMP _ SOURCE: URINE SPDESC: ORDERED: Urine Culture Procedure Result Reported Site Urine Culture Final 09/12/19- 1012 ML No Growth (<1,000 CFU/mL) * ML - Main Lab . END OF REPORT DEPARTMENT OF PATHOLOGY, [address] [place] [address] Lorenzo Lowry M.D. Director [facility] # [id number] 2 Because ethnic data is not always readily [...] 15-29 5 Kidney failure <15 (or dialysis) 3 Therapeutic target for the treatment of diabetes mellitus patients is <7% HBA1C, and in selective patients <6.0%. Please refer to [place] [employer] diabetic care guidelines for further information. 4 Therapeutic target for the treatment of diabetes mellitus patients is <7% HBA1C, and in selective patients <6.0%. Please refer to [place] [employer] diabetic care guidelines for further information. 5 Test Performed by: [address] [address] 6 Because ethnic data is not always readily [...] (or dialysis) Procedures Date Code Description Status 07/28/2019 02513 ECHO Transthorasic Realtime 2D W Doppler & Color Flow Completed Hosp 04/29/2019 24581 EKG Tracing & Interpretation Completed 02/13/2018 [id number] Colonoscopy Completed Medical Devices Description No Information Available Encounters Type Date Location Provider Dx Diagnosis Office Visit 08/15/2019 [facility] Nephrology Narinder Cobb I12.9 Hypertensive chronic 10:30a MD Joseph kidney disease w stg 1-4/unsp chr kdny E11.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mellitus w diabetic chronic kidney disease N18.4 Chronic kidney disease, stage 4 (severe) E03.9 Hypothyroidism, unspecified I10 Essential (primary) hypertension Office Visit 07/30/2019 2:33p [facility] Jessica Yash, N17.9 Acute kidney Assoc,pc [employer] failure, Hospitalists unspecified N18.4 Chronic kidney disease, stage 4 (severe) J18.9 Pneumonia, unspecified organism I50.33 Acute on chronic diastolic (congestive) heart failure J44.9 Chronic obstructive pulmonary disease, unspecified I25.10 Athscl heart disease of [place] coronary artery w/o ang pctrs I10 Essential (primary) hypertension E03.9 Hypothyroidism, unspecified D64.9 Anemia, unspecified C90.00 Multiple myeloma not having achieved remission Office Visit 07/29/2019 2:33p [facility] Brandee N17.9 Acute kidney Assoc,pc ROXANA Parker failure, Hospitalists unspecified N18.9 Chronic kidney disease, unspecified J96.01 Acute respiratory failure with hypoxia J18.9 Pneumonia, unspecified organism I50.33 Acute on chronic diastolic (congestive) heart failure R19.5 Other fecal abnormalities I25.10 Athscl heart disease of [place] coronary artery w/o ang pctrs E11.9 Type 2 diabetes mellitus without complications I10 Essential (primary) hypertension E03.9 Hypothyroidism, unspecified Office Visit 07/28/2019 [facility] Brandee J96.01 Acute respiratory 2:32p Assoc,pc ROXANA Parker failure with Hospitalists hypoxia J18.9 Pneumonia, unspecified organism I50.33 Acute on chronic diastolic (congestive) heart failure R19.5 Other fecal abnormalities R41.82 Altered mental status, unspecified I25.10 Athscl heart disease of [place] coronary artery w/o ang pctrs E11.9 Type 2 diabetes mellitus without complications I10 Essential (primary) hypertension E03.9 Hypothyroidism, unspecified D64.9 Anemia, unspecified Office Visit 07/27/2019 [facility] R41.82 Altered mental 2:32p Assoc,pc Susan Britt, status, Hospitalists [employer] unspecified I16.0 Hypertensive urgency K21.9 Gastro-esophageal reflux disease without esophagitis J44.9 Chronic obstructive pulmonary disease, unspecified E11.65 Type 2 diabetes mellitus with hyperglycemia F41.9 Anxiety disorder, unspecified Z79.4 emt intermediate (current) use of insulin Office Visit 07/24/2019 11:40a [facility] Armin Loja, E11.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Endocrinology of [facility] 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 N18.4 Chronic kidney disease, stage 4 (severe) E11.65 Type 2 diabetes mellitus with hyperglycemia R60.0 Localized edema Z79.4 intermediate (current) use of insulin C90.02 Multiple myeloma in relapse Office Visit 07/18/2019 2:00p [facility] Nephrology Marquita Campbell, N18.4 Chronic kidney MD disease, stage 4 (severe) C90.02 Multiple myeloma in relapse D64.9 Anemia, unspecified Office Visit 04/29/2019 10:00a [facility] Agusto Barrientos I50.32 Chronic diastolic Of [facility] Cruz, DO (congestive) heart FACC failure Z79.4 emt intermediate (current) use of insulin C90.01 Multiple myeloma in remission N18.9 Chronic kidney disease, unspecified J44.9 Chronic obstructive pulmonary disease, unspecified D64.9 Anemia, unspecified E66.8 Other obesity E11.69 Type 2 diabetes mellitus with other specified complication I63.9 Cerebral infarction, unspecified I10 Essential (primary) hypertension E78.5 Hyperlipidemia, unspecified G47.33 Obstructive sleep apnea (adult) (pediatric) I25.10 Athscl heart disease of [place] coronary artery w/o ang pctrs Office Visit 04/23/2019 11:00a [facility] Armin Coch, E11.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[facility] of [facility] 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 N18.4 Chronic kidney disease, stage 4 (severe) Z79.4 intermediate (current) use of insulin Assessments Date Code Description Provider 09/15/2019 I12.9 Hypertensive chronic kidney disease with Narinder Ruiz MD stage 1 through stage 4 chronic kidney disease, or unspecified chronic kidney disease 09/15/2019 E11.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mellitus with diabetic Narinder Ruiz MD chronic kidney disease 09/15/2019 N18.4 Chronic kidney disease, stage 4 (severe) Narinder Ruiz MD 09/15/2019 E03.9 Hypothyroidism, unspecified Narinder Ruiz MD 09/15/2019 I10 Essential (primary) hypertension Narinder Ruiz MD 08/15/2019 I12.9 Hypertensive chronic kidney disease with Narinder Ruiz MD stage 1 through stage 4 chronic kidney disease, or unspecified chronic kidney disease 08/15/2019 E11.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mellitus with diabetic Narinder Ruiz MD chronic kidney disease 08/15/2019 N18.4 Chronic kidney disease, stage 4 (severe) Narinder Ruiz MD 08/15/2019 E03.9 Hypothyroidism, unspecified Narinder Ruiz MD 08/15/2019 I10 Essential (primary) hypertension Narinder Ruiz MD 07/30/2019 N17.9 Acute kidney failure, unspecified Jessica Yash, [employer] 07/30/2019 N18.4 Chronic kidney disease, stage 4 (severe) Jessica Yash, [employer] 07/30/2019 J18.9 Pneumonia, unspecified organism Jessica Yash, [employer] 07/30/2019 I50.33 Acute on chronic diastolic (congestive) Jessica Yash, [employer] heart failure 07/30/2019 J44.9 Chronic obstructive pulmonary disease, Jessica Yash, [employer] unspecified 07/30/2019 I25.10 Atherosclerotic heart disease of [place] Jessica Yash, [employer] coronary artery without angina pectoris 07/30/2019 I10 Essential (primary) hypertension Jessica Yash, [employer] 07/30/2019 E03.9 Hypothyroidism, unspecified Jessica Yash, [employer] 07/30/2019 D64.9 Anemia, unspecified Jessica Yash, [employer] 07/30/2019 C90.00 Multiple myeloma not having achieved Jessica Yash, [employer] remission 07/29/2019 N17.9 Acute kidney failure, unspecified Brandee O'estrella, PA-C 07/29/2019 N18.9 Chronic kidney disease, unspecified Brandee O'estrella, PA-C 07/29/2019 J96.01 Acute respiratory failure with hypoxia Brandee O'estrella, PA -C 07/29/2019 J18.9 Pneumonia, unspecified organism Brandee O'estrella, PA-C 07/29/2019 I50.33 Acute on chronic diastolic (congestive) Brandee O'estrella, PA-C heart failure 07/29/2019 R19.5 Other fecal abnormalities Brandee O'estrella, PA-C 07/29/2019 I25.10 Atherosclerotic heart disease of [place] Brandee O'estrella, PA-C coronary artery without angina pectoris 07/29/2019 E11.9 Type 2 diabetes mellitus without Brandee O'estrella, PA-C complications 07/29/2019 I10 Essential (primary) hypertension Brandee O'estrella, PA-C 07/29/2019 E03.9 Hypothyroidism, unspecified Brandee O'estrella, PA-C 07/28/2019 J96.01 Acute respiratory failure with hypoxia Brandee O'estrella, PA -C 07/28/2019 I50.9 Heart failure, unspecified Jaya Hansen M.D. 07/28/2019 J18.9 Pneumonia, unspecified organism Brandee O'estrella, PA-C 07/28/2019 I50.33 Acute on chronic diastolic (congestive) Brandee O'estrella, PA-C heart failure 07/28/2019 R19.5 Other fecal abnormalities Brandee O'estrella, PA-C 07/28/2019 R41.82 Altered mental status, unspecified Brandee O'estrella, PA-C 07/28/2019 I25.10 Atherosclerotic heart disease of [place] Brandee Parker PA-C coronary artery without angina pectoris 07/28/2019 E11.9 Type 2 diabetes mellitus without ALEJANDRINA Dacosta-C complications 07/28/2019 I10 Essential (primary) hypertension ALEJANDRINA Dacosta-C 07/28/2019 E03.9 Hypothyroidism, unspecified ALEJANDRINA Dacosta-C 07/28/2019 D64.9 Anemia, unspecified Brandee Parker PA-C 07/27/2019 R41.82 Altered mental status, unspecified Mile Britt, [employer] 07/27/2019 I16.0 Hypertensive urgency Mile Britt, [employer] 07/27/2019 K21.9 Gastro-esophageal reflux disease without Mile Britt, [employer] esophagitis 07/27/2019 J44.9 Chronic obstructive pulmonary disease, Milejamarcus Britt, [employer] [employer] unspecified 07/27/2019 E11.65 Type 2 diabetes mellitus with Mile Britt, [employer] hyperglycemia 07/27/2019 F41.9 Anxiety disorder, unspecified Mile Britt, [employer] 07/27/2019 Z79.4 intermediate (current) use of insulin Mile Britt NP 07/24/2019 E11.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mellitus with diabetic Armin Loja MD chronic kidney disease 07/24/2019 N18.4 Chronic kidney disease, stage 4 (severe) Armin Loja MD 07/24/2019 E11.65 Type 2 diabetes mellitus with Armin Loja MD hyperglycemia 07/24/2019 R60.0 Localized edema Armin Loja MD 07/24/2019 Z79.4 emt intermediate (current) use of insulin Armin Loja MD 07/24/2019 C90.02 Multiple myeloma in relapse Armin Loja MD 07/18/2019 N18.4 Chronic kidney disease, stage 4 (severe) Marquita Campbell MD 07/18/2019 C90.02 Multiple myeloma in relapse Marquita Campbell MD 07/18/2019 D64.9 Anemia, unspecified Marquita Campbell MD 04/29/2019 I50.32 Chronic diastolic (congestive) heart Agusto Cruz [facility] failure 04/29/2019 Z79.4 emt intermediate (current) use of insulin Agusto Cruz [facility] 04/29/2019 C90.01 Multiple myeloma in remission Agusto Cruz [facility] 04/29/2019 N18.9 Chronic kidney disease, unspecified Agusto Cruz, [facility] 04/29/2019 J44.9 Chronic obstructive pulmonary disease, Agusto Cruz [facility] unspecified 04/29/2019 D64.9 Anemia, unspecified Agusto Crzu, [facility] 04/29/2019 E66.8 Other obesity Agusto Cruz [facility] 04/29/2019 E11.69 Type 2 diabetes mellitus with other Agusto Cruz [facility] specified complication 04/29/2019 I63.9 Cerebral infarction, unspecified Agusto Cruz [facility] 04/29/2019 I10 Essential (primary) hypertension Agusto Cruz [facility] 04/29/2019 E78.5 Hyperlipidemia, unspecified Augsto Cruz, [facility] 04/29/2019 G47.33 Obstructive sleep apnea (adult) Agusto Desaizachary [facility] (pediatric) 04/29/2019 I25.10 Atherosclerotic heart disease of [place] Agusto Cruz, [facility] coronary artery with 04/23/2019 E11.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mellitus with diabetic Armin Loja MD chronic kidney diseas 04/23/2019 N18.4 Chronic kidney disease, stage 4 (severe) Armin Loja MD 04/23/2019 Z79.4 emt intermediate (current) use of insulin Armin Loja MD Plan of Treatment Future Appointment(s):10/17/2019 9:40 am - Narinder Ruiz MD at [facility] [place]64/25/2019 - Narinder Ruiz MDI12.9 Hypertensive chronic kidney disease with stage 1 through stage 4 chronic kidney disease, or unspecified chronic kidney wlizqxzJ45.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mellitus with diabetic chronic kidney whaaqqnF18.4 Chronic kidney disease, stage 4 (severe)New Medication: Torsemide 20 mg - 1 tab by mouth twice dailyFollow up:1 month f/uE03.9 Hypothyroidism, [id number] Essential (primary) hypertensionNew Medication: Amlodipine Besylate 10 mg - 10 mg by mouth daily at bedtime Functional Status Description No Information Available Mental Status Description No Information Available Referrals Description No Information Available
--- OUTSIDE RECORDS SUMMARY | 2019-10-01 22:08 | XMS REPORT | Continuity of Care Document ---
:1950 External Reference #:[id number] Author Name Narinder Ruiz MD (transmitted by agent of provider Nupur [place]) Address [address] [place] [id number] Care Team Providers Name Role Phone Aditya Weston NP - Family Care Team Information Senior Programmer [phone] Paul Humphreys MD - Plastic and Care Team Information Senior Programmer [phone] Reconstructive Surgery Problems Active Problems Provider Date Coronary arteriosclerosis Jacqueline Garg D.O. Onset: 09/27/2011 Chest pain Jacqueline Garg D.O. Onset: 02/26/2012 Hyperlipidemia Brianda Butcher NRoyal Onset: 06/04/2012 Benign essential hypertension Brianda Butcher N.Ariel Onset: 06/04/2012 Coronary arteriosclerosis Jacqueline Garg D.O. Onset: 10/30/2012 Angina decubitus Jacqueline Garg D.O. Onset: 09/15/2013 Essential hypertension Jimmie Malone M.D., [facility], [facility] Onset: 11/28/2013 Chronic ischemic heart disease Jimmie Malone M.D., [facility], [facility] Onset: 2013 Radiation injury Jimmie Malone M.D., [facility], [facility] Onset: 11/28/2013 Tremor Andreia Finn M.D. Onset: 03/26/2015 Headache Andreia Finn M.D. Onset: 03/26/2015 Essential hypertension Jimmie Malone M.D., [facility], [facility] Onset: 07/14/2015 Chronic ischemic heart disease, Jimmie Malone M.D., [facility] Onset: 2014 unspecified Carpal tunnel syndrome of right Andreia Finn M.D. Onset: 08/10/2016 wrist Facial palsy Andreia Finn M.D. Onset: 12/14/2016 Snapping thumb syndrome Jericho Herr MD Onset: 08/14/2017 Acquired trigger finger Jericho Herr MD Onset: 08/14/2017 Angina pectoris Jimmie Malone M.D., [facility] Onset: 09/05/2017 Lateral epicondylitis Jericho Herr MD Onset: 09/18/2017 Atherosclerotic heart disease of Jimmie Malone M.D., [facility] Onset: 2016 [place] coronary artery with other forms of angina pectoris Preoperative cardiovascular Jimmie Malone M.D., [facility] Onset: 01/09/2018 examination Polyneuropathy Jude Ramos M.D. Onset: 02/22/2018 Abnormal gait Jude Ramos M.D. Onset: 02/22/2018 Nervous system symptoms Jude Ramos M.D. Onset: 02/22/2018 Chronic fatigue syndrome Jude Ramos M.D. Onset: 02/22/2018 Atherosclerotic heart disease of Jimmie Malone M.D., [facility] Onset: 2017 [place] coronary artery with unspecified angina pectoris Type [...] Use Denies Drug Use Smoking Status Reviewed: 08/15/19 Patient is a former Quit 4 years ago. smoker Used to smoke cigarettes then pipe then cigars. Allergies, Adverse Reactions, Alerts Active Allergies Reaction Severity Comments Date Augmentin diarrhea 09/04/2016 Inactive Allergies NKDA 01/27/2011 Medications Active Medications SIG Qnty Indications Ordering Date Provider Ferrous Sulfate 1 tab by mouth 90tabs N18.4 Mohammad A. 08/15/2019 everyother day MD Joseph 325(65Fe) mg Tablets Torsemide 1 tab po q daily 30tabs N18.4 Marquita 02/27/2019 20mg Tablets MD Adrian Lantus Solostar inject 60 units 30ml Armin Loja MD 06/27/2018 in at night 100Unit/ML Solution Pen-Inject Pen [place] 1 each with every 200units E11.9 Armin Loja MD 06/27/2018 31G X 6 mm insulin injection [facility] Diabetic Shoes 1 pair of 1units E11.9 Armin Loja MD 06/27/2018 [facility] diabetic shoes for daily use Freestyle place 1 sensor 3units E11.8 Armin Loja MD 06/27/2018 Jamie/Sensor/Flash every 10 days [facility] use every 8 hours 1units Arimn Loja MD 06/27/2018 Jamie/[place]/Flash with sensor Monitoring System Device Amlodipine Besylate 1 by mouth every 30tabs I10 Jimmie Malone, 09/05/2017 5mg day M.D., FACC, Tablets FSCAI Isosorbide 1 by mouth every 90tabs Agusto S. 10/28/2014 Mononitrate ER day Anthony, FACC 120mg Tablets ER 24HR Prevacid one [...] Available Vital Signs Date Vital Result Comment 08/15/2019 8:59am Height 65 inches 5'5" Weight 254.00 lb Heart Rate 68 /min BP Systolic Sitting 120 mmHg left arm large cuff BP Diastolic Sitting 59 mmHg left arm large cuff O2 % BldC Oximetry 94 % room air BMI (Body Mass Index) 42.3 kg/m2 07/24/2019 11:35am Height 65 inches 5'5" Weight 254.00 lb w/ shoes Heart Rate 66 /min BP Systolic Sitting 152 mmHg BP Diastolic Sitting 77 mmHg BMI (Body Mass Index) 42.3 kg/m2 Results Test Date Facility Test Result H/L Range Note Laboratory test 04/23/2019 [facility] Hemoglobin A1c 7.7 % High 4.0-5.6 1 finding (Glyco HGB) [place] [address] [phone] Fructosamine 237 mcmol/L 200 - 285 2 Basic Metabolic 04/23/2019 [facility] Sodium 137 mmol/L Normal 135-145 [place] [address] [phone] Potassium 4.2 mmol/L Normal 3.5-5.0 Chloride 105 mmol/L Normal 101-111 Co2 Carbon Dioxide 26 mmol/L Normal 22-32 Anion Gap 6 mmol/L Normal 2-11 Glucose 126 mg/dL High 70-100 Blood Urea Nitrogen 36 mg/dL High 6-24 Creatinine 2.60 mg/dL High 0.67-1.17 BUN/Creatinine Ratio 13.8 Normal 8-20 Calcium 8.5 mg/dL Low 8.6-10.3 Egfr Non- 24.7 >60 Egfr 29.9 >60 3 Laboratory 04/23/2019 [facility] TSH (Thyroid 1.22 Normal 0.34 -5.60 test finding Stim Horm) mcIU/[place] [address] [phone] CBC Auto Diff 03/01/2019 [facility] White Blood 7.2 10^3/uL Normal 3.5-10.8 [place] [address] [phone] Red Blood Count 3.20 10^6/uL Low 4.18-5.48 [...] Blood Cells % 0.0 Comp Metabolic 03/01/2019 [facility] Sodium 135 mmol/L Normal 135-[address] [place] [address] [phone] Potassium 4.3 mmol/L Normal 3.5-5.0 Chloride 100 [...] 30.8 >60 4 Total Protein 24HR 03/01/2019 [facility] Urine Collection Time 24 hr Urine [address] [place] [address] [phone] Urine Total Volume 2600 mL 5 Urine TP Concentration 174 mg/dL Urine Total Protein/24HR 4524 mg/24Hr High 0-165 Laboratory 03/01/2019 [facility] Immunoglobulin G 2140 Abnormal 767 - 6 test finding 101 (Igg) mg/dL 1590 [place] [address] [phone] Immunoglobulin M (Igm) 28 mg/dL Abnormal 37 - 286 7 Immunoglobulin A (Iga) 71 mg/dL 61 - 356 8 [place]/Lambda Free 03/01/2019 [facility] [place] Free 2.29 mg/dL Abnormal [address] [place] [address] [phone] Lambda Free Light Chain 7.49 mg/dL Abnormal 10 [place]/Lambda Free Light Chain 0.3057 11 Protein 03/01/2019 [facility] Total 6.6 g/dL 6.3 - Electrophoresis 101 Protein(Pep) 7.9 [place] [address] [phone] Albumin 3.0 g/dL Abnormal 3.4-4.7 Alpha-1 Globulin 0.2 g/dL 0.1-0.3 Alpha-2 Globulin 0.9 g/dL 0.6-1.0 Beta Globulin 0.8 g/dL 0.7-1.2 Gamma Globulin 1.7 g/dL Abnormal 0.6-1.6 Albumin/Globulin Ratio 0.84 M Fercho 1.5 g/dL Impression See Comment 12 Laboratory 03/01/2019 [facility] Miscellaneous See Comment 13 test finding [address] [place] [address] [phone] CBC Auto Diff 02/17/2019 [facility] White Blood Count 7.4 10^3/ uL Normal 3.5- [address] 10.8 [place] [address] [phone] Red Blood Count 2.87 10^6/uL Low 4.18-5.48 [...] Blood Cells % 0 Basic Metabolic 02/17/2019 [facility] Sodium 136 mmol/L Normal 135-145 Panel [address] [place] [address] [phone] Potassium 3.9 mmol/L Normal 3.5-5.0 Chloride 105 mmol/L Normal 101-111 Co2 Carbon Dioxide 26 mmol/L Normal 22-32 Anion Gap 5 mmol/L Normal 2-11 Glucose 52 mg/dL Low 70-100 Blood Urea Nitrogen 43 mg/dL High 6-24 Creatinine 2.69 mg/dL High 0.67-1.17 BUN/Creatinine Ratio 16.0 Normal 8-20 Egfr Non- 23.7 >60 Egfr 28.7 >60 14 Laboratory test 02/17/2019 [facility] Creatinine Random 37.23 mg /dL finding [address] [place] [address] [phone] Urine Microalbumin 02/17/2019 [facility] Urine Creatinine 37.23 mg/dL Random [address] [place] [address] [phone] Ur Microalbumin (mg/L) 721.8 mg/L Urine Microalbumin/Creatinine 1938.7 High <31 Laboratory test 02/17/2019 [facility] Total Protein 116 mg/dL finding [address] [place] [address] [phone] Calcium 9.2 mg/dL Normal 8.6-10.3 Phosphorus 3.6 mg/dL Normal 2.5-5.0 Magnesium 1.9 mg/dL Normal 1.9-2.7 1 Therapeutic target for the treatment of diabetes mellitus patients is <7% HBA1C, and in selective patients <6.0%. Please refer to [place] [employer] diabetic care guidelines for further information. 2 Test Performed by: [facility] [address] [place] [address] 3 Because ethnic data is not always [...] as: 1550 mL 6 Test Performed by: [facility] [employer] [address] [place] [address] 7 Test Performed by: [facility] [employer] [address] [place] [address] 8 Test Performed by: [facility] [place] [address] 9 REFERENCE VALUE 0.3300-1.94 10 REFERENCE VALUE 0.5700-2.63 11 REFERENCE VALUE 0.2600-1.65 Test Performed by: [facility] [place] [id number] 12 M-spike in gamma fraction. Size of monoclonal protein not changed significantly since 11/01/2018. Test Performed by: [facility] [place] [address] 13 Test Result Flag Unit RefValue Quant Free [place]/Lambda Light Chains Hours Collected 24 hr Total Volume 2600 mL Total Protein 2958 H mg/d 10-140 INTERPRETIVE INFORMATION: Total Protein Total urinary protein is determined nephelometrically by adding the albumin and [place] and/or Lambda light chains. This value may not agree with the total protein as determined by chemical methods, which characteristically underestimate urinary light chains. Albumin, Urine Detected Detected Alpha-1, Urine Detected REFERENCE VALUE None Detected Alpha-2, Urine Detected REFERENCE VALUE None Detected Urine Beta Globulin Detected REFERENCE VALUE None Detected Gamma, Urine Detected REFERENCE VALUE None Detected Free Urinary [place] 11.20 H mg/dL 0.14-2.42 Light Chains Free Urinary [place] 291.20 mg/d Excretion/Day Free Urinary Lambda 4.78 H mg/dL 0.02-0.67 Light Chain Free Urinary Lambda 124.28 mg/d Excretion/Day Free Urinary 2.34 ratio 2.04-10.37 [place]/Lambda Ratio Performed by [facility], [address] [place] [id number] [email or web address], Willie Polanco MD - Lab. Director JOY Interpretation See Note Urine is POSITIVE for monoclonal Free Lambda Light chains (Bence Hutchison Protein). Urine JOY shows a monoclonal IgG heavy chain with associated lambda light chain and excess monoclonal free lambda light chains. Test Performed by: [facility] [address] [place] [address] 14 Because ethnic data is not always [...] dialysis) Procedures Date Code Description Status 07/28/2019 41242 ECHO Transthorasic Realtime 2D W Doppler & Color Flow Completed Hosp 04/29/2019 94147 EKG Tracing & Interpretation Completed 02/13/2018 85032750 Colonoscopy Completed Medical Devices Description No Information Available Encounters Type Date Location Provider Dx Diagnosis Office Visit 07/30/2019 [facility] Jessica Berrios, MARIANNE N17.9 Acute kidney 2:33p Assoc,pc failure, Hospitalists unspecified N18.4 Chronic kidney disease, stage 4 (severe) J18.9 Pneumonia, unspecified organism I50.33 Acute on chronic diastolic (congestive) heart failure J44.9 Chronic obstructive pulmonary disease, unspecified I25.10 Athscl heart disease of [place] coronary artery w/o ang pctrs I10 Essential (primary) hypertension E03.9 Hypothyroidism, unspecified D64.9 Anemia, unspecified C90.00 Multiple myeloma not having achieved remission Office Visit 07/29/2019 2:33p [facility] Brandee N17.9 Acute kidney Assoc,pc O'estrella, PA-C failure, Hospitalists unspecified N18.9 Chronic kidney disease, unspecified J96.01 Acute respiratory failure with hypoxia J18.9 Pneumonia, unspecified organism I50.33 Acute on chronic diastolic (congestive) heart failure R19.5 Other fecal abnormalities I25.10 Athscl heart disease of [place] coronary artery w/o ang pctrs E11.9 Type 2 diabetes mellitus without complications I10 Essential (primary) hypertension E03.9 Hypothyroidism, unspecified Office Visit 07/28/2019 [facility] Brandee J96.01 Acute respiratory 2:32p Assoc,pc O'estrella, PA-C failure with Hospitalists hypoxia J18.9 Pneumonia, unspecified organism I50.33 Acute on chronic diastolic (congestive) heart failure R19.5 Other fecal abnormalities R41.82 Altered mental status, unspecified I25.10 Athscl heart disease of [place] coronary artery w/o ang pctrs E11.9 Type 2 diabetes mellitus without complications I10 Essential (primary) hypertension E03.9 Hypothyroidism, unspecified D64.9 Anemia, unspecified Office Visit 07/27/2019 [facility] Mile R41.82 Altered mental 2:32p Assoc,pc Susan Doto, status, Hospitalists NECKTIE CENTRALIZING MACHINE OPERATOR unspecified I16.0 Hypertensive urgency K21.9 Gastro-esophageal reflux disease without esophagitis J44.9 Chronic obstructive pulmonary disease, unspecified E11.65 Type 2 diabetes mellitus with hyperglycemia F41.9 Anxiety disorder, unspecified Z79.4 [facility] (current) use of insulin Office Visit 07/24/2019 11:40a Eladio العلي and Armin Loja, E11.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[facility] 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 N18.4 Chronic kidney disease, stage 4 (severe) E11.65 Type 2 diabetes mellitus with hyperglycemia R60.0 Localized edema Z79.4 long term (current) use of insulin C90.02 Multiple myeloma in relapse Office Visit 07/18/2019 2:00p [facility] Nephrology Marquita Campbell, N18.4 Chronic kidney MD disease, stage 4 (severe) C90.02 Multiple myeloma in relapse D64.9 Anemia, unspecified Office Visit 04/29/2019 10:00a [place] [facility] Agusto Barrientos I50.32 Chronic diastolic Of [facility] Anthony DO (congestive) heart FACC failure Z79.4 long term (current) use of insulin C90.01 Multiple myeloma in remission N18.9 Chronic kidney disease, unspecified J44.9 Chronic obstructive pulmonary disease, unspecified D64.9 Anemia, unspecified E66.8 Other obesity E11.69 Type 2 diabetes mellitus with other specified complication I63.9 Cerebral infarction, unspecified I10 Essential (primary) hypertension E78.5 Hyperlipidemia, unspecified G47.33 Obstructive sleep apnea (adult) (pediatric) I25.10 Athscl heart disease of [place] coronary artery w/o ang pctrs Office Visit 04/23/2019 11:00a Eladio العلي and Armin Loja, E11.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[facility] 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 N18.4 Chronic kidney disease, stage 4 (severe) Z79.4 long term (current) use of insulin Office Visit 02/27/2019 11:30a [facility] Nephrology Marquita Campbell N18.4 Chronic kidney MD disease, stage 4 (severe) C90.01 Multiple myeloma in remission I12.9 Hypertensive chronic kidney disease w stg 1-4/unsp chr kdny Assessments Date Code Description Provider 08/15/2019 N18.4 Chronic kidney disease, stage 4 (severe) Narinder Ruiz MD 08/15/2019 E03.9 Hypothyroidism, unspecified Narinder Ruiz MD 08/15/2019 I10 Essential (primary) hypertension Narinder Ruiz MD 08/15/2019 E11.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mellitus with diabetic Narinder Ruiz MD chronic kidney disease 07/30/2019 N17.9 Acute kidney failure, unspecified Jessica Yash, NECKTIE CENTRALIZING MACHINE OPERATOR 07/30/2019 N18.4 Chronic kidney disease, stage 4 (severe) Jessica Yash, NECKTIE CENTRALIZING MACHINE OPERATOR 07/30/2019 J18.9 Pneumonia, unspecified organism Jessica Yash, NECKTIE CENTRALIZING MACHINE OPERATOR 07/30/2019 I50.33 Acute on chronic diastolic (congestive) Jessica Yash, NECKTIE CENTRALIZING MACHINE OPERATOR heart failure 07/30/2019 J44.9 Chronic obstructive pulmonary disease, Jessica Yash, NECKTIE CENTRALIZING MACHINE OPERATOR unspecified 07/30/2019 I25.10 Atherosclerotic heart disease of [place] Jessica Yash, NECKTIE CENTRALIZING MACHINE OPERATOR coronary artery without angina pectoris 07/30/2019 I10 Essential (primary) hypertension Jessica Yash, NECKTIE CENTRALIZING MACHINE OPERATOR 07/30/2019 E03.9 Hypothyroidism, unspecified Jessica Yash, NECKTIE CENTRALIZING MACHINE OPERATOR 07/30/2019 D64.9 Anemia, unspecified Jessica Yash, NECKTIE CENTRALIZING MACHINE OPERATOR 07/30/2019 C90.00 Multiple myeloma not having achieved Jessica Yash, NECKTIE CENTRALIZING MACHINE OPERATOR remission 07/29/2019 N17.9 Acute kidney failure, unspecified [...] PA-C 07/29/2019 I25.10 Atherosclerotic heart disease of [place] Brandee O'estrella, PA-C coronary artery without angina pectoris 07/29/2019 E11.9 Type 2 diabetes mellitus without Brandee O'estrella, PA-C complications 07/29/2019 I10 Essential (primary) hypertension Brandee Giles'estrella, PA-C 07/29/2019 E03.9 Hypothyroidism, unspecified Brandee O'estrella, PA-C 07/28/2019 J96.01 Acute respiratory failure with hypoxia Brandee O'estrella, PA -C 07/28/2019 I50.9 Heart failure, unspecified Jaya Hansen M.D. 07/28/2019 J18.9 Pneumonia, unspecified organism Brandee O'estrella, PA-C 07/28/2019 I50.33 Acute on chronic diastolic (congestive) Brandee Giles'estrella, PA-C heart failure 07/28/2019 R19.5 Other fecal abnormalities Brandee Skaggs'estrella, PA-C 07/28/2019 R41.82 Altered mental status, unspecified Brandee O'estrella, PA-C 07/28/2019 I25.10 Atherosclerotic heart disease of [place] Brandee Parker PA-C coronary artery without angina pectoris 07/28/2019 E11.9 Type 2 diabetes mellitus without Brandee O'estrella, PA-C complications 07/28/2019 I10 Essential (primary) hypertension Brandee Skaggs'estrella, PA-C 07/28/2019 E03.9 Hypothyroidism, unspecified Brandee O'estrella, PA-C 07/28/2019 D64.9 Anemia, unspecified Brandee O'estrella, PA-C 07/27/2019 R41.82 Altered mental status, unspecified Mile Britt, NECKTIE CENTRALIZING MACHINE OPERATOR 07/27/2019 I16.0 Hypertensive urgency Mile Britt, NECKTIE CENTRALIZING MACHINE OPERATOR 07/27/2019 K21.9 Gastro-esophageal reflux disease without Mile Britt NECKTIE CENTRALIZING MACHINE OPERATOR esophagitis 07/27/2019 J44.9 Chronic obstructive pulmonary disease, Mile Britt, NECKTIE CENTRALIZING MACHINE OPERATOR unspecified 07/27/2019 E11.65 Type 2 diabetes mellitus with Mile Britt, NECKTIE CENTRALIZING MACHINE OPERATOR hyperglycemia 07/27/2019 F41.9 Anxiety disorder, unspecified Mile Britt, NECKTIE CENTRALIZING MACHINE OPERATOR 07/27/2019 Z79.4 [facility] (current) use of insulin Mile Britt NP 07/24/2019 E11.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mellitus with diabetic Armin Loja MD chronic kidney disease 07/24/2019 N18.4 Chronic kidney disease, stage 4 (severe) Armin Loja MD 07/24/2019 E11.65 Type 2 diabetes mellitus with Armin Loja MD hyperglycemia 07/24/2019 R60.0 Localized edema Armin Loja MD 07/24/2019 Z79.4 long term (current) use of insulin Armin Loja MD 07/24/2019 C90.02 Multiple myeloma in relapse Armin Loja MD 07/18/2019 N18.4 Chronic kidney disease, stage 4 (severe) Marquita Campbell MD 07/18/2019 C90.02 Multiple myeloma in relapse Marquita Campbell MD 07/18/2019 D64.9 Anemia, unspecified Marquita Campbell MD 04/29/2019 I50.32 Chronic diastolic (congestive) heart Agusto Cruz DO [facility] failure 04/29/2019 Z79.4 long term (current) use of insulin Agusto Cruz DO FAC 04/29/2019 C90.01 Multiple myeloma in remission Agusto Cruz DO FAC 04/29/2019 N18.9 Chronic kidney disease, unspecified Agusto Cruz, DO FAC 04/29/2019 J44.9 Chronic obstructive pulmonary disease, Agusto Cruz DO [facility] unspecified 04/29/2019 D64.9 Anemia, unspecified Agusto Cruz DO FAC 04/29/2019 E66.8 Other obesity Agusto Cruz DO FAC 04/29/2019 E11.69 Type 2 diabetes mellitus with other Agusto Cruz DO FAC specified complication 04/29/2019 I63.9 Cerebral infarction, unspecified Agusto Cruz DO FAC 04/29/2019 I10 Essential (primary) hypertension Agusto Cruz DO FAC 04/29/2019 E78.5 Hyperlipidemia, unspecified Agusto Cruz DO FAC 04/29/2019 G47.33 Obstructive sleep apnea (adult) Agusto Cruz DO FAC (pediatric) 04/29/2019 I25.10 Atherosclerotic heart disease of [place] Agusto Cruz, DO [facility] coronary artery with 04/23/2019 E11.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mellitus with diabetic Armin Loja MD chronic kidney diseas 04/23/2019 N18.4 Chronic kidney disease, stage 4 (severe) Armin Loja MD 04/23/2019 Z79.4 [facility] (current) use of insulin Armin Loja MD 02/27/2019 N18.4 Chronic kidney disease, stage 4 (severe) Marquita Campbell MD 02/27/2019 C90.01 Multiple myeloma in remission Marquita Campbell MD 02/27/2019 I12.9 Hypertensive chronic kidney disease with Marquita Campbell MD stage 1 through stage 4 chronic kidney disease, or unspecified chronic kidney disease Plan of Treatment Future Appointment(s):09/15/2019 10:30 am - Narinder Ruiz MD at [facility] Kxnxiyxsee91/25/2019 - Narinder Ruiz MDN18.4 Chronic kidney disease, stage 4 (severe)New Medication:Ferrous Sulfate 325(65 Fe) mg - 1 tab by mouth everyother dayFollow up:1 gfwbvA09.9 Hypothyroidism, [id number] Essential ( primary) ppuhzwcisfvcP48.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mellitus with diabetic chronic kidney disease Functional Status Description No Information Available Mental Status Description No Information Available Referrals Description No Information Available
[2019-10-01] MEDS ORDERED: Furosemide IV* 10 MG/ML 10 ML VIAL (100 MG) IV ONE (22:16)
[2019-10-01 22:25] LABS: ABS Basophils 0.1 10^3/ul (0-0.2); ABS Lymphocytes 0.8 10^3/ul (1.0-4.8); ABS Monocytes 0.3 10^3/ul (0-0.8); ABS Neutrophils 8.4 10^3/ul (1.5-7.7); Hematocrit 22 % (42-52); Hemoglobin 7.5 g/dL (14.0-18.0); Lymphocyte % 8.4 %; Mean Corpuscular HGB Conc 34 g/dL (31-36); Mean Corpuscular Hemoglobin 33 pg (27-31); Mean Corpuscular Volume 98 fL (80-94); Mean Platelet Volume 9.6 fL (7.4-10.4); Nucleated Red Blood Cells % 0.5; Platelet Count 107 10^3/uL (150-450); Red Blood Count 2.26 10^6 /uL (4.18-5.48); Red Cell Distribution Width 21 % (10-15); White Blood Count 9.6 10^3/uL (3.5-10.8)
[2019-10-01 22:31] LABS: INR 0.99 (0.82-1.09)
--- NOTE | 2019-10-01 22:34 | ED ---
Shortness of Breath - HPI Summary HPI Summary: Pt is a 69 y/o M presenting to the ED with a chief complaint of shortness of breath initially onset today after his transfusion. Per triage note, the pts SaO2 was 77% on arrival and he was also complaining of chest pain. After 6L O2 was placed, pt states his sx were somewhat alleviated. Pts RN also reports he gained 10lbs in 1 day. - History of Current Complaint Chief Complaint: EDShortnessOfBreath Time Seen by Provider: 10/01/19 22:01 Hx Obtained From: Patient Onset/Duration: Sudden Onset, Lasting Hours, Still Present Current Severity: Moderate Dyspnea At: Rest Aggravating Factors: Nothing Alleviating Factors: Oxygen Associated Signs & Symptoms: Edema - in abd - Allergy/Home Medications Allergies/Adverse Reactions: Allergies Allergy/AdvReac Type Severity Reaction Status Date / Time amoxicillin AdvReac Diarrhea Verified 10/01/19 22:03 clavulanic acid AdvReac Dizziness Verified 10/01/19 22:03 PMH/Surg Hx/FS Hx/Imm Hx Previously Healthy: No Endocrine/Hematology History: Reports: Hx Bone Marrow Disease - Multiple myeloma 2014/2015, Hx Diabetes, Hx Thyroid Disease - on medication, Hx Anemia - history of, not recent, Other Endocrine/Hematological Disorders Cardiovascular History: Reports: Hx Angina - unstable angina, Hx Coronary Artery Disease - 3 cardiac stents, 2010 & 2012, Hx Hypercholesterolemia, Hx Hypertension - ON MEDS, Other Cardiovascular Problems/Disorders - hyperlipidemia , CVA 05/08 Denies: Hx Cardiac Arrest, Hx Myocardial Infarction, Hx Pacemaker/ICD, Hx Valvular Heart Disease Respiratory History: Reports: Hx Asthma - possible, Hx Chronic Obstructive Pulmonary Disease (COPD), Hx Seasonal Allergies, Hx Sleep Apnea - Oxygen 3 liters at night. Denies: Hx Pulmonary Edema, Other Respiratory Problems/Disorders GI History: Reports: Hx Gastroesophageal Reflux Disease - on medication, Other GI Disorders - PANCREATITIS History: Reports: Hx Kidney Stones - history of, 3, Other Problems/ Disorders - benign growth on L kidney-follows with Dr Posey Denies: Hx Renal Disease Musculoskeletal History: Reports: Hx Arthritis - left shoulder, Hx Back Problems - arthritis, Hx Tendonitis - right elbow, Other Musculoskeletal History - Right hand thumb and pinky trigger fingers Sensory History: Reports: Hx Cataracts - 2008 Bilateral, Hx Contacts or Glasses - reading Denies: Hx Hearing Aid Opthamlomology History: Reports: Hx Cataracts - 2007 Bilateral, Hx Contacts or Glasses - reading Neurological History: Reports: Hx Headaches, Hx Nerve Disease - Neuropathy bilateral feet, hx of carpal tunnel right wrist, Other Neuro Impairments/ Disorders - numbness R hand, Rehman's palsy 2008, balance issues, hx of tremors. 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 MULTIPLE Myeloma Hx Chemotherapy: Yes - Surgical History Surgery Procedure, Year, and Place: CAD - HEART STENT - 09/2013 -3X. Carpal tunnel/trigger finger surgery-BILATERAL HANDS. Cataracts-BILATERAL. Rt AXILLA DISSECTION - REMOVED melonama-1977. Stem Cell Transplant, [facility] February 2016. Carpal tunnel Hx Anesthesia Reactions: No - Immunization History Date of Tetanus Vaccine: Unk Date of Influenza Vaccine: Fall 2012 Infectious Disease History: No Infectious Disease History: Reports: Hx Shingles - 10/2015 Denies: Hx Clostridium Difficile, Hx Hepatitis, Hx Human Immunodeficiency Virus (HIV), Hx of Known/Suspected MRSA, Hx Tuberculosis, Hx Known/Suspected VRE , Hx Known/Suspected VRSA, History Other Infectious Disease, Traveled Outside the in Last 30 Days - Family History Known Family History: Positive: Cardiac Disease, Diabetes - Social History Alcohol Use: Weekly Alcohol Amount: 2 Hx Substance Use: No Substance Use Type: Reports: None Hx Tobacco Use: Yes Smoking Status (MU): Former Smoker Type: Cigarettes Amount Used/How Often: CIGARS AND PIPE 1-3 TIMES A WEEK WHILE GOLFING Length of Time of Smoking/Using Tobacco: went form about 1pck/d Cigarettes,to pipe occ cigar. Have You Smoked in the Last Year: No Review of Systems - ROS Summary Review of Systems Summary: Home Medications Medication Instructions Recorded Confirmed Type Cholecalciferol TAB* [Vitamin D 2,000 units PO BID 05/21/18 07/27/19 History TAB*] Isosorbide Mononitrate ER TAB* 120 mg PO DAILY tab.er 05/31/18 07/27/19 Rx [Imdur ER TAB*] Nitroglycerin TAB 0.4 MG* 0.4 mg SL Q5M PRN tab 05/31/18 07/27/19 Rx Albuterol HFA INHALER* [Ventolin 1 puff INH .Q4-6H PRN 09/02/18 07/27/19 History HFA Inhaler*] Atorvastatin* [Lipitor 80 MG*] 80 mg PO 1700 09/02/18 07/27/19 History Carvedilol TAB* [Coreg TAB*] 25 mg PO BID WITH MEALS 09/02/18 07/27/19 History Clopidogrel TAB* [Plavix TAB*] 75 mg PO DAILY 09/02/18 07/27/19 History Gabapentin CAP(*) [Neurontin 300 300 mg PO BID 09/02/18 07/27/19 History CAP(*)] Insulin GLARGINE(*) [Lantus(*)] 60 units SUBCUT QPM 09/02/18 07/27/19 History Levothyroxine TAB* [Synthroid TAB*] 75 mcg PO DAILY 09/02/18 07/27/19 History Multivitamin [Multivitamins] 1 cap PO DAILY 09/02/18 07/27/19 History amLODIPine TAB* [Norvasc 5 mg TAB*] 5 mg PO DAILY 09/02/18 07/27/19 History ALPRAZolam TAB* [Xanax TAB*] 0.5 mg PO BID PRN 10/29/18 07/27/19 History Lidocaine PATCH 5%* [Lidoderm 5% 1 patch TRANSDERM DAILY 10/29/18 07/27/19 History Patch*] Nystatin CREAM* [Nystatin Cream*] 1 applic TOPICAL TID 10/29/18 07/27/19 History Torsemide TAB* [Demadex 20 MG*] 20 mg PO DAILY 10/29/18 07/27/19 History Triamcinolone 0.5% CREAM(NF) 1 applic TOPICAL BID 10/29/18 07/27/19 History [Triamcinolone 0.5% CREAM*] Insulin Lispro [Humalog Kwikpen 18 unit SC AC 11/21/18 07/27/19 History U-200] Acetaminophen [Tylenol Extra 500 mg PO Q6HR PRN 03/20/19 07/27/19 History Strength] Budesonide/Formote 80/4.5(NF) 1 puff INH BID 03/20/19 07/27/19 History [Symbicort 80/4.5 (NF)] Benzonatate CAP* [Tessalon 100 MG 100 mg PO TID PRN 07/27/19 07/27/19 History CAP*] Lansoprazole CAP (NF) [Prevacid 15 mg PO DAILY 07/27/19 07/27/19 History CAP (NF)] Azithromycin 250 mg PO DAILY 2 Days #2 tablet 07/30/19 Rx Cefdinir cap* [Cefdinir 300 MG cap 300 mg PO BID 4 Days #8 cap 07/30/19 Rx (NF)] predniSONE TAB* [Deltasone 10 MG 0 mg PO DAILY 8 Days #20 tab 07/30/19 Rx TAB*] Positive: Other - weight gain Positive: Chest Pain Positive: Shortness Of Breath All Other Systems Reviewed And Are Negative: Yes Physical Exam - Summary Physical Exam Summary: General: Morbidly obese male appearing in moderate respiratory distress. HEENT: Normocephalic, Atraumatic. Eyes: Conjuctiva normal, PERRL. Oropharynx: Clear, mucous membranes moist, (-) exudates. Neck: Soft, FROM, (-) lymphadenopathy, (-) thyromegaly, (-) JVD. Cardiovascular: Normal sinus rhythm, (-) murmur. Lungs: Decreased breath sounds bilaterally. Tight wheezing throughout. Fair air exchange. Abdomen: Soft, non-tender, non-distended, (-) organomegaly, normal bowel sounds. Back: (-) CVA tenderness Extremities: 2+ pitting edema in the bilateral LE Skin: Warm, diaphoretic, (-) rash. Neuro: Alert and oriented x3, no focal deficits. Psychiatric: Mood normal, affect normal. Triage Information Reviewed: Yes Vital Signs On Initial Exam: Initial Vitals Temp Pulse Resp BP Pulse Ox 97.8 F 68 22 114/68 77 10/01/19 21:50 10/01/19 21:50 10/01/19 21:50 10/01/19 21:50 10/01/19 21:50 Vital Signs Reviewed: Yes Procedures - Sedation Patient Received Moderate/Deep Sedation with Procedure: No Diagnostics - Vital Signs Vital Signs Temp Pulse Resp BP Pulse Ox 10/01/19 21:50 97.8 F 68 22 114/68 77 - Laboratory Lab Results: Lab Results 12/11/19 Range/Units 22:18 WBC 9.6 (3.5-10.8) 10^3/uL RBC 2.26 L (4.18-5.48) 10^6 /uL Hgb 7.5 L (14.0-18.0) g/dL Hct 22 L (42-52) % MCV 98 H (80-94) fL MCH 33 H (27-31) pg MCHC 34 (31-36) g/dL RDW 21 H (10-15) % Plt Count 107 L (150-450) 10^3/uL MPV 9.6 (7.4-10.4) fL Neut % (Auto) 87.4 % Lymph % (Auto) 8.4 % [place] % (Auto) 3.6 % Eos % (Auto) 0.0 % Baso % (Auto) 0.6 % Absolute Neuts (auto) 8.4 H (1.5-7.7) 10^3/ul Absolute Lymphs (auto) 0.8 L (1.0-4.8) 10^3/ul Absolute Monos (auto) 0.3 (0-0.8) 10^3/ul Absolute Eos (auto) 0.0 (0-0.6) 10^3/ul Absolute Basos (auto) 0.1 (0-0.2) 10^3/ul Absolute Nucleated RBC 0.0 10^3/ul Nucleated RBC % 0.5 Result Diagrams: 10/01/19 22:18 10/01/19 22:18 Lab Statement: Any lab studies that have been ordered have been reviewed, and results considered in the medical decision making process. - Radiology CXR Radiology Interpretation Completed By: ED Physician Summary of Radiographic Findings: Fluid overload with CHF. Pending official radiology report. Course/Dx - Course Course Of Treatment: 69 year old male presents with sob. pulsox 77% on room air. multiple chronic medical problems. found to have weight gain and fluid overload after transfusion today. elev bnp and chf on xray. patient given duonebs and lasix. referred to hospitalist for admission - Diagnoses Provider Diagnoses: CHF exacerbation, Hypoxia - Critical Care Time Critical Care Time: 75-104 min - 87min Discharge ED - Sign-Out/Discharge Documenting (check all that apply): Patient Departure - Discharge Plan Condition: Stable Disposition: ADMITTED TO [facility] - Billing Disposition and Condition Condition: STABLE Disposition: Admitted to [facility] - Attestation Statements Document Initiated by Scribe: Yes Documenting Scribe: Carmina Apple Provider For Whom Toshia is Documenting (Include Credential): Shiela Haynes MD. Scribe Attestation: ICarmina, scribed for Shiela Haynes MD. on 10/02/19 at 0215. Scribe Documentation Reviewed: Yes Provider Attestation: The documentation as recorded by the franchescaibe, Carmina Apple accurately reflects the service I personally performed and the decisions made by me, Shiela Haynes MD. Status of Scribe Document: Viewed Consult Consult: 0003 - Spoke with Dr. Soni who will evaluate the pt for admission.
[2019-10-01 22:42] LABS: Albumin 3.5 g/dL (3.2-5.2); Albumin/Globulin Ratio 0.8 (1-3); BUN/Creatinine Ratio 25.1 (8-20); Calcium 7.8 mg/dL (8.6-10.3); EGFR African American 21.3 (>60); EGFR Non-African American 17.6 (>60); Globulin 4.2 g/dL (2-4); Potassium 4.4 mmol/L (3.5-5.0); Total Bilirubin 0.6 mg/dL (0.2-1.0); Total Protein 7.7 g/dL (6.4-8.9)
[2019-10-01 22:44] LABS: Troponin I 0.02 ng/mL (<0.03)
[2019-10-02 00:56] LABS: Troponin I 0.03 ng/mL (<0.03)
[2019-10-02] MEDS ORDERED: Nitro 2% OINT* (Nitroglycerin) 1 INCH/PAK PAK TOPICAL ONE (02:07)
[2019-10-02 05:01] LABS: Troponin I 0.03 ng/mL (<0.03)
[2019-10-02] MEDS ORDERED: Nitroglycerin TAB 0.4 MG* 0.4 MG TAB SL PRN (06:18)
--- NOTE | 2019-10-02 09:07 | ADMNOTE ---
Subjective Interval History: 69 yo male with hx of multiple myeloma came to the emergency room with complaints of shortness of breath immediately following transfusion of 1 pRBC today. He came to the ER in respiratory distress and was found to be hypoxic. CXR shows pulmonary edema. Pt was placed on 5L NC and given a dose of lasix. He was also found to have acute kidney injury on CKD. Family History: Unchanged from Admission Social History: Unchanged from Admission Past Medical History: Unchanged from Admission Review of Systems - Measurements Intake and Output: Intake and Output Last 24 Hours 09/30/19 10/01/19 10/02/19 10/03/19 06:59 06:59 06:59 06:59 Intake Total 20 Output Total 450 Balance -430 Weight 266 lb 9.6 oz Intake: IV Fluids 20 Oral 0 Output: Urine 450 - Review of Systems Constitutional Symptoms: Negative: Weight Gain, Weight Loss, Weakness, Fatigue, Fever, Night Sweats, Unexplained Falls, Other Dermatology: Negative: Normal, Rash, Skin Lesions, Cancer, Skin Lumps, Other HEENT: Negative: Normal, Change in Hearing, Vertigo, Dental Problems, Tinnitus, Sinus Problem, Other Eyes: Negative: Normal, Change in Vision, Double Vision, Eye Pain, Glaucoma, Cataract, Contacts or Glasses, Other Thyroid: Negative: Normal, Goiter, Thyroid Nodule, Cold Intolerance, Heat Intolerance , Sweatiness, Tremor, Frequent Defecation, Constipation, Palpitations, Primary Hypothyroidism, Primary Hyperthyroidism, Weight Loss, Weight Gain, Change in Skin/Hair, Change in Menstruation, Radiation Exposure, Other Pulmonary: Positive: Respiratory Distress, Shortness of Breath Negative: Normal, Cough, Sputum, Hemoptysis, Wheezing, COPD, Asthma, Exercise Intolerance, Home Oxygen, Other Cardiology: Negative: Normal, Chest Pain, Shortness of Breath, Palpitations, Swelling of Ankles, Peripheral Vascular Dis, Edema, Faintness, Syncope, Claudication, Proximal NocturnalDyspnea, Orthopnoea, Other Gastroenterology: Negative: Normal, Abdominal Pain, Nausea, Vomiting, Anorexia, Indigestion, Difficulty Swallowing, Heartburn, Constipation, Diarrhea, Blood in Stools, Change in Bowel Habits, Haematemesis, Melena, Other Genital - Urinary: Negative: Normal, Dysuria, Hematuria, Polyuria, Nocturia, Other Genitourinary - Male: Negative: Prostatism, Erectile Dysfunction, Family Hx of Prostate Cancer, Other Musculoskeletal: Negative: Joint Pain, Joint Stiffness, Arthritis, Osteoporosis, Low Back Pain , Sciatica, Joint Deformities, Kyphoscoliosis, Other Endocrinology: Negative: Normal, Thyroid Problems, Adrenal Problems, Gonadal Problems, Family Hx Endocrine Disorders, Obesity, Diabetes Mellitus, Hyperglycemia, Hx Hypoglycemia, Diabetic Foot Ulcers, Calluses, Hirsutism, Menstrual Abnormalities , Polydipsia, Polyuria, Gonadal Problems, Gynecomastia, Pituitary disease, Other Hematologic/Lymphatic: Negative: Anemia, Easy Bruising, Hx Leukemia, Hx Lymphoma, Use of Anticoagulant, Use of Antiplatelet Drugs, Other Neurology: Negative: Normal, Headache, Migraines, Change in Vision, Diplopia, Dizziness , Change in Balancing, Change in Coordination, Change in Memory, Change in Speech, Change in Sphincter Function, Change in Walking, Numbness\Paresthesiae, Unexplained Weakness, Hx of Stroke\TIA, Hx of Seizures, Other Psychiatry: Negative: Normal, Depression, Anxiety, Depressed Mood, Anhedonia, Sexual Dysfunction, Weight Change, Guilt Feelings, Tearfulness, Unusual Fatigue, Unusual Anxiety, Suicidal Ideation, Hypomania, Eating Disorders, Other Objective Active Medications: Amlodipine Besylate (Norvasc Tab*) 10 mg PO DAILY [facility] Atorvastatin Calcium (Lipitor*) 80 mg PO DAILY@1700 [facility] Carvedilol (Coreg Tab*) 25 mg PO BID WITH MEALS [facility] Clopidogrel Bisulfate (Plavix Tab*) 75 mg PO DAILY [facility] Insulin Glargine (Lantus(*)) 60 units SUBCUT QPM [facility] Isosorbide Mononitrate (Imdur Er Tab*) 120 mg PO DAILY [facility] Nitroglycerin (Nitroglycerin Tab 0.4 Mg*) 0.4 mg SL Q5M PRN PRN Reason: ANGINA Vital Signs - 8 hr 10/02/19 10/02/19 10/02/19 01:08 01:38 02:00 Temperature Pulse Rate 67 65 67 Respiratory 26 21 24 Rate Blood Pressure 182/93 170/107 (mmHg) O2 Sat by Pulse 96 94 94 Oximetry 10/02/19 10/02/19 10/02/19 02:05 02:09 02:39 Temperature Pulse Rate 68 71 67 Respiratory 22 20 20 Rate Blood Pressure 156/78 143/98 178/85 (mmHg) O2 Sat by Pulse 94 96 100 Oximetry 10/02/19 10/02/19 10/02/19 02:57 03:44 04:03 Temperature 97.6 F 97.6 F Pulse Rate 70 69 Respiratory 24 22 24 Rate Blood Pressure 167/79 140/68 (mmHg) O2 Sat by Pulse 94 96 Oximetry Oxygen Devices in Use Now: OxyMask Appearance: in moderate respiratory distress Eyes: No Scleral Icterus, PERRLA Ears/Nose/Mouth/Throat: NL Teeth, Lips, Gums, Mucous Membranes Moist Neck: NL Appearance and Movements; NL JVP, Trachea Midline, No Thyroid Enlargement, Masses Respiratory: - - crackles at the bases Cardiovascular: NL Sounds; No Murmurs; No JVD, - - edema Abdominal: NL Sounds; No Tenderness; No Distention, No Hepatosplenomegaly Lymphatic: No Cervical Adenopathy Skin: No Rash or Ulcers Neurological: Alert and Oriented x 3, NL Sensation, NL Muscle Strength and Tone Result Diagrams: 10/01/19 22:18 10/01/19 22:18 Additional Lab and Data: Lab Results 10/01/19 Range/Units 22:18 WBC 9.6 (3.5-10.8) 10^3/uL RBC 2.26 L (4.18-5.48) 10^6 /uL Hgb 7.5 L (14.0-18.0) g/dL Hct 22 L (42-52) % MCV 98 H (80-94) fL MCH 33 H (27-31) pg MCHC 34 (31-36) g/dL RDW 21 H (10-15) % Plt Count 107 L (150-450) 10^3/uL MPV 9.6 (7.4-10.4) fL Neut % (Auto) 87.4 % Lymph % (Auto) 8.4 % [place] % (Auto) 3.6 % Eos % (Auto) 0.0 % Baso % (Auto) 0.6 % Absolute Neuts (auto) 8.4 H (1.5-7.7) 10^3/ul Absolute Lymphs (auto) 0.8 L (1.0-4.8) 10^3/ul Absolute Monos (auto) 0.3 (0-0.8) 10^3/ul Absolute Eos (auto) 0.0 (0-0.6) 10^3/ul Absolute Basos (auto) 0.1 (0-0.2) 10^3/ul Absolute Nucleated RBC 0.0 10^3/ul Nucleated RBC % 0.5 Assess/Plan/Problems-Billing Assessment: - Patient Problems (1) Acute CHF (congestive heart failure) Current Visit: No Status: Acute Code(s): I50.9 - HEART FAILURE, UNSPECIFIED SNOMED Code(s): 69762559 Comment: - suspect CHF exacerbation versus Trali, but likely CHF exacerbation - will give pt lasix and nitro paste and monitor I/O closely (2) Acute kidney injury superimposed on chronic kidney disease Current Visit: No Status: Acute Code(s): N17.9 - ACUTE KIDNEY FAILURE, UNSPECIFIED; N18.9 - CHRONIC KIDNEY DISEASE, UNSPECIFIED SNOMED Code(s): 00835682 Comment: in the setting MM also has CHF exacerbation so could be prerenal. lasix (3) Acute respiratory failure with hypoxia Current Visit: No Status: Acute Code(s): J96.01 - ACUTE RESPIRATORY FAILURE WITH HYPOXIA SNOMED Code(s): 86199079 Comment: -likely 2/2 combination of decompensated CHF plus pneumonia -currently with good saturations on 5L oxygen. Uses 3L oxygen overnight only at home. (4) DVT prophylaxis Current Visit: No Status: Acute Code(s): TPT6617 - SNOMED Code(s): 587305602 Comment: heparin (5) Full code status Current Visit: No Status: Acute Code(s): Z78.9 - OTHER SPECIFIED HEALTH STATUS SNOMED Code(s): 272660570 (6) HLD (hyperlipidemia) Current Visit: No Status: Acute Code(s): E78.5 - HYPERLIPIDEMIA, UNSPECIFIED SNOMED Code(s): 39000197 Comment: - Continue lipitor 80mg daily. (7) History of CVA (cerebrovascular accident) Current Visit: No Status: Acute Code(s): Z86.73 - PRSNL HX OF TIA (TIA), AND CEREB INFRC W/O RESID DEFICITS SNOMED Code(s): 185424473 Comment: -continue plavix (8) Multiple myeloma Current Visit: No Status: Acute Code(s): C90.00 - MULTIPLE MYELOMA NOT HAVING ACHIEVED REMISSION SNOMED Code(s): 342416148 Comment: - He follows with Dr Loya. (9) RADU (obstructive sleep apnea) Current Visit: No Status: Acute Priority: High Code(s): G47.33 - OBSTRUCTIVE SLEEP APNEA (ADULT) (PEDIATRIC) SNOMED Code(s): 27364644 (10) CAD (coronary artery disease) Current Visit: No Status: Chronic Code(s): I25.10 - ATHSCL HEART DISEASE OF [place] CORONARY ARTERY W/O ANG PCTRS SNOMED Code(s): 27393883 Comment: -continue plavix (11) Diabetes Current Visit: No Status: Chronic Code(s): E11.9 - TYPE 2 DIABETES MELLITUS WITHOUT COMPLICATIONS SNOMED Code(s): 68485914 Comment: -continue home glargine -lispro SS (12) HTN (hypertension) Current Visit: No Status: Chronic Code(s): I10 - ESSENTIAL (PRIMARY) HYPERTENSION SNOMED Code(s): 09542824 Comment: - Continue his home amlodipine, coreg, Imdur
[2019-10-02] MEDS ORDERED: Furosemide IV* 10 MG/ML 10 ML VIAL (100 MG) IV ONE (09:10)
[2019-10-02] MEDS: amLODIPine TAB* 5 MG PO SCH (09:39)
[2019-10-02] MEDS: Isosorbide Mononitrate ER TAB* 60 MG PO SCH (09:39)
[2019-10-02] MEDS: Clopidogrel TAB* 75 MG PO SCH (09:39)
[2019-10-02] MEDS: Carvedilol TAB* 25 MG PO SCH ×2 (10:17→18:07)
--- NOTE | 2019-10-02 10:26 | PN ---
Progress Note - Progress Note Date of Service: 10/02/19 SOAP: Subjective: []Does not feel well, still SOB. Is urinating after Lasix. Not in pain. Otherwise tolerated chemotherapy, due on Sunday for bortezomib. Amlodipine Besylate (Norvasc Tab*) 10 mg PO DAILY [facility] Last Admin: 10/02/19 09:39 Dose: 10 mg Atorvastatin Calcium (Lipitor*) 80 mg PO DAILY@1700 [facility] Carvedilol (Coreg Tab*) 25 mg PO BID WITH MEALS [facility] Last Admin: 10/02/19 10:17 Dose: 25 mg Clopidogrel Bisulfate (Plavix Tab*) 75 mg PO DAILY [facility] Last Admin: 10/02/19 09:39 Dose: 75 mg Heparin Sodium (Porcine) (Heparin Vial(*)) 5,000 units SUBCUT Q12HR [facility] Insulin Glargine (Lantus(*)) 60 units SUBCUT QPM [facility] Isosorbide Mononitrate (Imdur Er Tab*) 120 mg PO DAILY [facility] Last Admin: 10/02/19 09:39 Dose: 120 mg Nitroglycerin (Nitroglycerin Tab 0.4 Mg*) 0.4 mg SL Q5M PRN PRN Reason: ANGINA Objective: [] Vital Signs Temp Pulse Resp BP Pulse Ox 97.9 F 68 20 139/70 97 10/02/19 07:15 10/02/19 07:15 10/02/19 08:00 10/02/19 07:15 10/02/19 07:15 HEENT: OM moist, pale Crackles at base, no wheezing RRR S1S2 +BS NT ND, no HSM, obeses +1 BRAIN Neuro: AAOx 3, gross non focal. Abnormal Lab Results 10/01/19 10/01/19 10/01/19 22:18 22:18 22:18 WBC 9.6 RBC 2.26 L Hgb 7.5 L Hct 22 L MCV 98 H MCH 33 H MCHC 34 RDW 21 H Plt Count 107 L MPV 9.6 Neut % (Auto) 87.4 Lymph % (Auto) 8.4 [place] % (Auto) 3.6 Eos % (Auto) 0.0 Baso % (Auto) 0.6 Absolute Neuts (auto) 8.4 H Absolute Lymphs (auto) 0.8 L Absolute Monos (auto) 0.3 Absolute Eos (auto) 0.0 Absolute Basos (auto) 0.1 Absolute Nucleated RBC 0.0 Nucleated RBC % 0.5 INR (Anticoag Therapy) 0.99 ABG pH ABG pCO2 ABG pO2 ABG HCO3 ABG O2 Saturation ABG Base Excess Sodium 129 L Potassium 4.4 Chloride 100 L Carbon Dioxide 18 L Anion Gap 11 BUN 87 H Creatinine 3.47 H Est GFR ( Amer) 21.3 Est GFR (Non-Af Amer) 17.6 BUN/Creatinine Ratio 25.1 H Glucose 430 H POC Glucose (mg/dL) Lactic Acid Calcium 7.8 L Total Bilirubin 0.60 AST 15 ALT 21 Alkaline Phosphatase 77 Troponin I 0.02 B-Natriuretic Peptide Total Protein 7.7 Albumin 3.5 Globulin 4.2 H Albumin/Globulin Ratio 0.8 L 10/01/19 10/01/19 10/01/19 22:18 22:18 23:00 WBC RBC Hgb Hct MCV MCH MCHC RDW Plt Count MPV Neut % (Auto) Lymph % (Auto) [place] % (Auto) Eos % (Auto) Baso % (Auto) Absolute Neuts (auto) Absolute Lymphs (auto) Absolute Monos (auto) Absolute Eos (auto) Absolute Basos (auto) Absolute Nucleated RBC Nucleated RBC % INR (Anticoag Therapy) ABG pH 7.36 ABG pCO2 29 L ABG pO2 185 H ABG HCO3 18.9 L ABG O2 Saturation 99.0 H ABG Base Excess -7.7 L Sodium Potassium Chloride Carbon Dioxide Anion Gap BUN Creatinine Est GFR ( Amer) Est GFR (Non-Af Amer) BUN/Creatinine Ratio Glucose POC Glucose (mg/dL) Lactic Acid 1.8 Calcium Total Bilirubin AST ALT Alkaline Phosphatase Troponin I B-Natriuretic Peptide 876 H Total Protein Albumin Globulin Albumin/Globulin Ratio 10/02/19 10/02/19 10/02/19 00:26 04:34 08:26 WBC RBC Hgb Hct MCV MCH MCHC RDW Plt Count MPV Neut % (Auto) Lymph % (Auto) [place] % (Auto) Eos % (Auto) Baso % (Auto) Absolute Neuts (auto) Absolute Lymphs (auto) Absolute Monos (auto) Absolute Eos (auto) Absolute Basos (auto) Absolute Nucleated RBC Nucleated RBC % INR (Anticoag Therapy) ABG pH ABG pCO2 ABG pO2 ABG HCO3 ABG O2 Saturation ABG Base Excess Sodium Potassium Chloride Carbon Dioxide Anion Gap BUN Creatinine Est GFR ( Amer) Est GFR (Non-Af Amer) BUN/Creatinine Ratio Glucose POC Glucose (mg/dL) 203 H Lactic Acid Calcium Total Bilirubin AST ALT Alkaline Phosphatase Troponin I 0.03 H* 0.03 H* B-Natriuretic Peptide Total Protein Albumin Globulin Albumin/Globulin Ratio Assessment: []69 year with relapsed myeloma IgG lambda who recently re-started therapy with Daratumumab, Dex, bortezomib weekly. Presented on day 3 with CHF and SOB after daratumumab and PRBC this week. He has CRI, worsening recently with relapsed disease. Plan: []1. CHF. - Given Lasix 80 IV x 1 - Consultation nephrology re advise for further diuretics. - Check Echo 2. Renal function. - Cr increased and decrease Na - Follow daily - No indiction HD 3. Anemia. - Follow and Tx as tolerated - Possible Rx Epo with chemotherapy - Hope for improvement with Rx myeloma 4. DM. Worse with recent Dex - Med dose ISS 5. Myeloma. Bortezomib on Sunday
[2019-10-02] MEDS ORDERED: Dextrose 50% VIAL 50 ml IV PUSH PRN (10:32)
[2019-10-02 10:41] LABS: Hepatitis C Antibody Negative (Negative)
--- NOTE | 2019-10-02 12:31 | CONSULT ---
Consult Consult: CONSULT requested by Dr Loya for ckd and hypervolemia . Patient seen and examned . not having a good diuresis on Lasix 80 mg iv. will start Lasix drop. full consult to follow. please call with questions. Debra Childress MD Nephrology [phone].
[2019-10-02] MEDS: Insulin LISPRO* 1 UNITS UNIT SUBCUT SCH ×3 (12:38→22:01)
[2019-10-02] MEDS: Albuterol/Ipratropium NEB.SOL* Albuterol 2.5 MG/Ipratropium 0.5 MG 3 ML INH PRN ×2 (14:56→18:26)
[2019-10-02] MEDS: Furosemide IV* 100 MG in NS 0.9% 100 ML* 90 ML IV SCH (15:29)
--- NOTE | 2019-10-02 17:00 | CONSULT ---
Consult Consult: DATE OF CONSULT: 10/02/2019 Reason for consultation: Volume overload, acute kidney injury on chronic kidney disease Requesting physician: Thad Loya MD of hematologyoncology History of present illness: Patient is a very nice 69 years old gentleman who presented to the emergency room yesterday with worsening shortness of breath. This was not associated with chest pain, palpitations, fevers or chills, discolored sputum production, hemoptysis or wheezing. He has a past medical history significant for CKD stage IV with a baseline creatinine of 2.6. He is also a patient with multiple myeloma, just recently relapsed after autologous stem cell transplant in 2014. He was restarted on chemotherapy on Sunday. He received bortezomib Sunday and Sunday. He also received a blood transfusion on Sunday. He was short of breath even before starting the chemotherapy, but after Sunday his shortness of breath became worse to the point that he felt so unwell he was sent to the emergency room. He was found to have a serum creatinine of 3.47 mg/dL. 2 days before admission his creatinine was at baseline of 2.68 mg/dL. He also has a history of diabetes for many years. He does not have history of diabetic retinopathy that he knows of. His diabetes had variable control over the years. He had a stroke about a year ago and the couple bouts of pneumonia within the last several months. He has a history of hypertension and he was not hypotensive at the time of admission or since admission. ROS: Constitutional: Negative for fevers, chills, loss of appetite, weight loss. CVS: no CP, or palpitations but positive for shortness of breath at rest, worsening leg swelling Respiratory: Positive for cough clear sputum production, no wheezing, no hemoptysis GI: no abdominal pain, N/V/D/C : no dysuria, gross hematuria, incontinence, hesitancy, slow urine flow All systems were reviewed and they were all negative unless otherwise specified Home medications: Iron sulfate 1 tablet daily Torsemide 20 mg daily Lantus 60 units subcu at night Amlodipine 5 mg daily Isosorbide mononitrate 125 mg ER daily Prevacid once a day Symbicort 1 puff twice a day Albuterol one unit dose via nebulizer every 4 hours as needed Humalog KwikPen 20 units with meals Levothyroxine 75 mcg by mouth daily Lipitor 80 mg daily Carvedilol 25 mg daily twice a day Clopidogrel 75 mg daily Ventolin 1 puff every 4-6 hours as needed Nitroglycerin 0.4 mg tablet 1 sublingual every 5 minutes 3 as needed for chest pain Alprazolam 0.5 mg half tablet to one tablet twice a day as needed Vitamin D 2000 units by mouth daily Gabapentin 300 mg twice a day Oxygen 4 L/min daily at bedtime. Allergies: Amoxicillindiarrhea Clavulanic aciddizziness Past medical history: Multiple myeloma diagnosed in 2014 Type 2 diabetes mellitus Polyneuropathy Coronary artery disease Hypertension Chronic fatigue syndrome Cerebral artery occlusion with cerebrovascular disease GERD Chronic kidney disease Past surgical history: - Autologous stem cell transplant in 2014 in [place] - In 1977 he has a melanoma excision with axillary node dissection on the right side. - PTCA with stent placements 2. Tooth on the first time and once in the last time. Past family history: - Father had diabetes and heart disease. He in his 70s from heart failure and kidney disease. - Mother had dementia and bladder cancer. She at 87 from dementia. - Has 2 brothers. One of cancer it was squamous cell cancer. The other brother is healthy. He has 2 sons, 1 of them has heart problems due to a valve dysfunction and heart failure. The other son is healthy other than anxiety. Social history: Patient is a former smoker consumes alcohol only occasionally, is , and lives with his at home. He is retired for about 10 years. 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 PHYSICAL EXAM: Vitals: Blood pressure is 140/68, oxygen saturation is 96% on 5 L of oxygen, dropped later during the day as 90% on 5 L of oxygen, respiration rate is 24/min , heart rate is 69/min, temperature is 97.6F. General appearance: Mild to moderate respiratory distress, conversant very pleasant elderly male HEENT: Pupils are equal, Neck FROM, supple, head is atraumatic and norm cephalic , external ears nose and lips look normal. Lungs: Crackles in both bases, diminished air entry bilaterally CV: RRR, no MRGs; +4 pitting lower extremity edema bilaterally Abdomen: obese Soft, non-tender; no masses or HSM, but difficult to appreciate due to obesity Extremities: No clubbing or cyanosis Skin: no rash, lesions or ulcers Neurological: Grossly nonfocal, speech is fluent although slightly interrupted by shortness of breath, grossly nonfocal. Musculoskeletal: No CVA tenderness, no red or swollen joints. Psych: Alert and oriented to person, place and time, judgment and insight appropriate. Mood normal. Labs: White blood cell count 9.6, hemoglobin 7.5, platelet count 107, sodium 129 , potassium 4.4, total CO2 18, BUN 87, creatinine 3.47, lactic acid 1.8. Chest x-ray: Suggestion of right basilar infiltrate. Cardiomegaly with interstitial edema present. Echocardiogram from July 2019 showed a left ventricular systolic function of 50-55%. Without regional wall motion abnormalities, right ventricle was normal systolic function. Pulmonary artery pressure could not be accurately compared. No significant valvular abnormality. Assessment and Plan: Very nice 69-year-old gentleman who comes with progressive worsening of shortness of breath in context of chronic kidney disease and volume normal overload after chemotherapy and blood transfusion. He was started on Lasix 80 mg IV 8-year-old white after admission but he has not produced significant amount of urine. 1. Volume overload/acute diastolic heart failure. He has not responded to Lasix IV 80 mg. We will start a Lasix drip at 10-20 mg/h. Goal is to achieve a negative volume balance. Recommend strict Is and Os and low-salt diet. 2. Acute kidney injury, per clinical history due to cardiorenal syndrome. He had a kidney month ago which showed no hydronephrosis or nephrolithiasis. Please get a urine analysis with protein creatinine ratio in a random urine specimen. 3. CKD stage IV with a baseline GFR of about 25 mL/min, which seems to be secondary to prolonged type 2 diabetes mellitus, hypertension, plus minus dysproteinemia due to multiple myeloma. 4. Hyponatremia due to excess free water in context of acute kidney injury. We will place the patient on free water restriction of about 1.5 L per day. 5. Multiple myelomaper oncology 6. Hypertension well controlled, no changes Thank you for the consult we will continue to follow with you. This note was dictated using [employer]. It was reviewed for major inaccuracies, but I may have missed some minor ones. Still working on training my Dragon.
[2019-10-02] MEDS ORDERED: Insulin GLARGINE(*) 1 UNITS UNIT SUBCUT SCH (18:00)
[2019-10-02] MEDS: Atorvastatin* 80 MG TAB PO SCH (18:07)
[2019-10-02] MEDS ORDERED: Furosemide IV* 10 MG/ML VIAL (40 MG) ONE (19:16)
[2019-10-02] MEDS ORDERED: Furosemide IV* 10 MG/ML VIAL (40 MG) IV SLOW PU ONE (20:00)
[2019-10-02 21:51] LABS: Urine Appearance Cloudy; Urine Bilirubin Negative (Negative); Urine Blood 2+ (Negative); Urine Color Yellow; Urine Glucose 1+(50 mg/dL) (Negative); Urine Ketones Negative (Negative); Urine Nitrite Negative (Negative); Urine Protein 2+(100 mg/dL) (Negative); Urine Urobilinogen Negative (Negative)
[2019-10-02 21:56] LABS: Urine Bacteria 1+ (Absent); Urine Red Blood Cell 1+(3-5/hpf) (Absent); Urine Squamous Epithelial Cell Present (Absent); Urine White Blood Cell Trace(0-5/hpf) (Absent)
[2019-10-02] MEDS: Heparin VIAL(*) 5000 UNITS/ML VIAL (FIVE THOUSAND) SUBCUT SCH (22:01)
[2019-10-03] MEDS ORDERED: Furosemide IV* 10 MG/ML 10 ML VIAL (100 MG) ONE (02:05)
[2019-10-03] MEDS: Furosemide IV* 100 MG in NS 0.9% 100 ML* 90 ML IV SCH ×5 (02:44→22:55)
[2019-10-03] MEDS: Albuterol/Ipratropium NEB.SOL* Albuterol 2.5 MG/Ipratropium 0.5 MG 3 ML INH PRN ×2 (05:18→19:34)
[2019-10-03 07:22] LABS: BUN/Creatinine Ratio 25.7 (8-20); Calcium 8.1 mg/dL (8.6-10.3); EGFR African American 21.4 (>60); EGFR Non-African American 17.7 (>60)
[2019-10-03] MEDS: amLODIPine TAB* 5 MG PO SCH (08:11)
[2019-10-03] MEDS: Carvedilol TAB* 25 MG PO SCH ×2 (08:11→16:22)
[2019-10-03] MEDS: Isosorbide Mononitrate ER TAB* 60 MG PO SCH (08:11)
[2019-10-03] MEDS: Heparin VIAL(*) 5000 UNITS/ML VIAL (FIVE THOUSAND) SUBCUT SCH ×2 (08:11→20:25)
[2019-10-03] MEDS: Clopidogrel TAB* 75 MG PO SCH (08:11)
[2019-10-03] MEDS: Insulin LISPRO* 1 UNITS UNIT SUBCUT SCH ×4 (08:12→20:26)
[2019-10-03] MEDS: Atorvastatin* 80 MG TAB PO SCH (16:22)
--- NOTE | 2019-10-03 17:12 | PN ---
Progress Note - Progress Note Date of Service: 10/03/19 Note: Chief complaint: Volume overload, acute kidney injury on chronic kidney disease History of present illness and review of systems: Patient responded well to Lasix drip. I think he was started on 10 mg/h yesterday and today was increased to 20 mg/h. He is diuresing very well. Continues to be short of breath just because he is massively volume overloaded. He denies chest pain or palpitations. Denies abdominal pain, nausea, vomiting or diarrhea. Complains of urinary burning due to Simpson catheter. He prefers to have a Simpson catheter instead of getting up each time he needs to void. He still feels he is unsteady and at risk of falls. Complains of his bottom hurting. He has been in the chair all day long. His kidney function is stable with a serum creatinine of 3.46 mg/dL from 3.47 yesterday. Baseline creatinine is 2.68 mg/dL. Labs reviewed: Sodium 132, potassium 4.0, total CO2 24, BUN 89, creatinine 3.46 mg/dL. Physical exam: Blood pressure 142/66, oxygen saturation 94% on 12 L, temperature is 97.5, heart rate is 67, respiration rate 20. Constitutional: Morbidly obese gentleman, seated in chair, in mild respiratory distress. Chest decreased air entry bilaterally Heart shows S1-S2, regular rate and rhythm no murmurs rubs or gallops, +4 pitting lower extremities edema bilaterally, a hair softer than yesterday. Abdomen: Obese, soft, nontender. Extremities: No clubbing or cyanosis. Psychiatric: Alert and oriented 3, judgment and insight appropriate, mood normal. Assessment and plan: 1. Acute diastolic heart failure. He remains short of breath. He can speak in full sentences but is short of breath when he speaks. Continue Lasix drip at 20 mg/h, along with strict Is and Os and low-salt diet 2. Anasarca : Lasix drip as above. 3. Acute kidney injury, nonoliguric. Stable. Due to cardiorenal syndrome. I expect serum creatinine to improve with diuresis. 4. CKD stage IV with a baseline GFR of about 25 mL/min, probably secondary to type 2 diabetes mellitus, hypertension, plus minus dysproteinemia due to multiple myeloma. 5. Hyponatremia improved. Sodium is increased to 132 from 129 yesterday. 6. Multiple myeloma. He is due for a new round of chemotherapy on Sunday.
[2019-10-03 19:20] LABS: BUN/Creatinine Ratio 26.2 (8-20); Calcium 8.4 mg/dL (8.6-10.3); EGFR African American 21.8 (>60); Potassium 4.2 mmol/L (3.5-5.0)
[2019-10-04] MEDS: Furosemide IV* 100 MG in NS 0.9% 100 ML* 90 ML IV SCH ×4 (07:17→20:15)
[2019-10-04] MEDS: amLODIPine TAB* 5 MG PO SCH (08:05)
[2019-10-04] MEDS: Isosorbide Mononitrate ER TAB* 60 MG PO SCH (08:05)
[2019-10-04] MEDS: Heparin VIAL(*) 5000 UNITS/ML VIAL (FIVE THOUSAND) SUBCUT SCH ×2 (08:05→20:41)
[2019-10-04] MEDS: Insulin LISPRO* 1 UNITS UNIT SUBCUT SCH ×4 (08:05→20:08)
[2019-10-04] MEDS: Clopidogrel TAB* 75 MG PO SCH (08:05)
[2019-10-04] MEDS: Carvedilol TAB* 25 MG PO SCH ×2 (08:06→16:48)
[2019-10-04 09:12] LABS: BUN/Creatinine Ratio 26.5 (8-20); Calcium 8.6 mg/dL (8.6-10.3); EGFR African American 23.3 (>60); EGFR Non-African American 19.3 (>60)
--- NOTE | 2019-10-04 12:16 | PN ---
Progress Note - Progress Note Date of Service: 10/04/19 SOAP: Subjective: []Better today. Breathing less strained. He is urinating. Eating some. Not able to walk w/o sever SOB. Albuterol/Ipratropium (Duoneb (Albuterol 2.5 Mg/Ipratropium 0.5 Mg)) 1 neb INH Q4H PRN PRN Reason: SOB/WHEEZING Last Admin: 10/03/19 19:34 Dose: 1 neb Amlodipine Besylate (Norvasc Tab*) 10 mg PO DAILY [facility] Last Admin: 10/04/19 08:05 Dose: 10 mg Atorvastatin Calcium (Lipitor*) 80 mg PO DAILY@1700 [facility] Last Admin: 10/03/19 16:22 Dose: 80 mg Carvedilol (Coreg Tab*) 25 mg PO BID WITH MEALS [facility] Last Admin: 10/04/19 08:06 Dose: 25 mg Clopidogrel Bisulfate (Plavix Tab*) 75 mg PO DAILY [facility] Last Admin: 10/04/19 08:05 Dose: 75 mg Dextrose (Dextrose 50% Vial 50 Ml*) 25 ml IV PUSH .FOR FS < 60 - SS PRN PRN Reason: FS < 60 Heparin Sodium (Porcine) (Heparin Vial(*)) 5,000 units SUBCUT Q12HR [facility] Last Admin: 10/04/19 08:05 Dose: 5,000 units Furosemide 100 mg/ Sodium (Chloride) 100 mls @ 20 mls/hr IV Q5H [facility]; Protocol Last Admin: 10/04/19 10:09 Dose: 20 mls/hr Insulin Human Lispro (Humalog*) 0 units SUBCUT ACHS [facility]; Protocol Last Admin: 10/04/19 11:52 Dose: 8 units Isosorbide Mononitrate (Imdur Er Tab*) 120 mg PO DAILY [facility] Last Admin: 10/04/19 08:05 Dose: 120 mg Nitroglycerin (Nitroglycerin Tab 0.4 Mg*) 0.4 mg SL Q5M PRN PRN Reason: ANGINA Last Admin: 10/02/19 17:54 Dose: 0.4 mg Objective: [] Vital Signs Temp Pulse Resp BP Pulse Ox 97.6 F 67 24 135/59 95 10/04/19 11:15 10/04/19 11:15 10/04/19 11:15 10/04/19 11:15 12/14/19 11:15 I/O - 2.6L HEENT: Pale, OM moist Wheezing, no crackles. RRR S1S2 Obese, abd wall edema +BS NT ND Ext +2 BRAIN Hgb 7.5 Cr 3.21, improved. Assessment: []69 year old with relapsed myeloma IgG lambda who recently re-started therapy with Daratumumab, Dex, bortezomib weekly. Presented on day 3 with CHF and SOB after daratumumab and PRBC this week. He has CRI, worsening recently with relapsed disease. Now on IV Lasix drip at 20 mg/hr with negative I/O and mild improvement in renal function. Plan: []1. CHF. - Lasix drip at 20 mg/hr today . - Follow I/O, weight and renal function. 2. Renal function. - Cr stable to improved - appreciate nephrology input. 3. Anemia. - Follow and Tx as tolerated - Possible Rx Epo with chemotherapy - Hope for improvement with Rx myeloma 4. Hyponatremia. Improved today, follow 5. DM. Stable on ISS, med dose. 5. Myeloma. Bortezomib on Sunday
[2019-10-04] MEDS: Lidocaine 2% JELLY* 6 ML JELLY TOPICAL PRN ×2 (14:53→18:47)
--- NOTE | 2019-10-04 15:04 | PN ---
Progress Note - Progress Note Date of Service: 10/04/19 Note: Chief complaint: Acute kidney injury on chronic kidney disease, volume overload Interval history: Patient continued to diurese very well last night and today on a Lasix drip 20 mg/h. He complains of severe pain due to Simpson catheter and he would rather have it taken out at this time. He is lying in bed almost flat , breathing a lot more comfortably than yesterday. Voice is stronger. He denies chest pain, abdominal pain, nausea, vomiting or diarrhea Review of systems as above Physical exam: Blood pressure 133/60, temperature is 98.4F, heart rate is 65 bpm, respiratory rate 20 bpm, oxygen saturation 96% on liters nasal cannula Constitutional: A chronically ill gentleman, massively for him overloaded, minimal respiratory distress while lying in bed, pleasant and conversant Chest: Diffuse wheezes bilaterally Heart: S1-S2, regular rate and rhythm, no murmurs rubs or gallops appreciated, 4 + soft or lower extremities edema Psychiatric: Alert and oriented 3, judgment and insight appropriate, mood normal Neuro: Grossly nonfocal Intake and output balance is -2.6 L Labs show a sodium of 135, potassium of 4.0, total CO2 of 27, creatinine of 3.21 , BUN of 85 Assessment and plan: 1. Acute kidney injury due to cardiorenal syndrome. Slightly improvement of serum creatinine from 3.4-0.21 mg/dL. 2. CKD stage IV with a baseline creatinine of 2.6 mg/dL and estimated GFR of 25 mL/min due to DM 2, hypertension, dysproteinemia. 3. Volume overload/acute diastolic heart failure - continue Lasix drip at 20 mg/h to achieve negative volume balance. D/C Simpson due to patient discomfort. 4. Multiple myeloma- due for another dose of bortezomib on Sunday. 5. Hypertension well controlled 6. DM type II per primary team.
[2019-10-04] MEDS: Albuterol/Ipratropium NEB.SOL* Albuterol 2.5 MG/Ipratropium 0.5 MG 3 ML INH PRN (15:33)
[2019-10-04] MEDS: Atorvastatin* 80 MG TAB PO SCH (16:48)
[2019-10-04] MEDS ORDERED: Furosemide IV* 10 MG/ML 10 ML VIAL (100 MG) ONE (19:23)
[2019-10-05] MEDS: Furosemide IV* 100 MG in NS 0.9% 100 ML* 90 ML IV SCH ×5 (01:04→23:35)
[2019-10-05 05:57] LABS: ABS Eosinophils 0.1 10^3/ul (0-0.6); ABS Lymphocytes 0.8 10^3/ul (1.0-4.8); ABS Monocytes 0.4 10^3/ul (0-0.8); ABS Neutrophils 4.5 10^3/ul (1.5-7.7); Eosinophil % 1.3 %; Hematocrit 22 % (42-52); Hemoglobin 7.6 g/dL (14.0-18.0); Lymphocyte % 14.3 %; Mean Corpuscular HGB Conc 35 g/dL (31-36); Mean Corpuscular Hemoglobin 34 pg (27-31); Mean Corpuscular Volume 97 fL (80-94); Mean Platelet Volume 9.9 fL (7.4-10.4); Nucleated Red Blood Cells % 0.1; Platelet Count 105 10^3/uL (150-450); Red Blood Count 2.26 10^6 /uL (4.18-5.48); Red Cell Distribution Width 20 % (10-15); White Blood Count 5.7 10^3/uL (3.5-10.8)
[2019-10-05 06:13] LABS: Albumin 3.2 g/dL (3.2-5.2); Albumin/Globulin Ratio 0.8 (1-3); Calcium 8.2 mg/dL (8.6-10.3); EGFR African American 26.4 (>60); EGFR Non-African American 21.9 (>60); Magnesium 2.2 mg/dL (1.9-2.7); Potassium 3.6 mmol/L (3.5-5.0); Total Bilirubin 0.7 mg/dL (0.2-1.0); Total Protein 7.2 g/dL (6.4-8.9)
[2019-10-05] MEDS ORDERED: Furosemide IV* 10 MG/ML 10 ML VIAL (100 MG) ONE (09:10)
[2019-10-05] MEDS: amLODIPine TAB* 5 MG PO SCH (09:37)
[2019-10-05] MEDS: Isosorbide Mononitrate ER TAB* 60 MG PO SCH (09:38)
[2019-10-05] MEDS: Insulin LISPRO* 1 UNITS UNIT SUBCUT SCH ×4 (09:38→21:05)
[2019-10-05] MEDS: Clopidogrel TAB* 75 MG PO SCH (09:38)
[2019-10-05] MEDS: Carvedilol TAB* 25 MG PO SCH ×2 (09:38→17:04)
[2019-10-05] MEDS: Heparin VIAL(*) 5000 UNITS/ML VIAL (FIVE THOUSAND) SUBCUT SCH ×2 (09:39→21:07)
--- NOTE | 2019-10-05 11:44 | PN ---
Progress Note - Progress Note Date of Service: 10/05/19 Note: Chief complaint: Acute kidney injury, volume overload, acute diastolic heart failure Thad Loaiza is a very nice 69-year-old gentleman with history of CKD most probably secondary to diabetes, hypertension, obesity and multiple myeloma admitted with volume overload. He has a history of multiple myeloma diagnosed in 2014 status post stem cell transplant in [place]. Recently he was diagnosed with recurrence and started on chemotherapy. With a baseline creatinine around 2.6 mg/dL and estimated GFR of 20 mL/min. Echocardiogram was done in July 2019 and showed a left ventricular systolic function of 50-55% without regional wall motion abnormalities, normal systolic function of the right ventricle. 1. Acute kidney injury secondary to cardiorenal syndrome. Improving with successful diuresis 2. CKD stage IVsecondary to diabetes, hypertension, obesity, multiple myeloma. 3. Acute diastolic heart failure improving with diuresis on a Lasix drip at 20 mg/h. continue the same 4. Multiple myeloma- due for next round of chemotherapy tomorrow. Recommend using the least amount of volume possible. Patient will continue to be diuresed. 5. Anemia and thrombocytopenia due to multiple myeloma. CKD stage IV can also contribute. Will defer management to Dr. Loya, his oncologist. 6. Hypertension: Blood pressure little higher than target but I think it will improve when patient will be diuresed to his target weight. 7. Diabetes mellitus type 2, uncontrolled, per primary team 8. COPD - with baseline shortness of breath at home Labs: Hemoglobin 7.6, white blood cell count 5.7, platelet count 105, creatinine improved at 2.88 mg/dL, potassium 3.6, total CO2 27, sodium 134, POC glucose 253 326 milligrams per deciliter. Intake and output = 2015 ml/5725ml with a -3.7 L of balance in the last 24 hours PE : Blood pressure 150/65, temperature 98.4, heart rate 66 bpm, oxygen saturation 91% on 7 L nasal cannula. constitutional: Mild respiratory distress which patient says is normal for him , pleasant and conversant Chest with decreased air entry, diffuse wheezes Heart: S1-S2, regular rate and rhythm, no murmurs rubs or gallops appreciated. Lower extremities +3 soft, pitting edema abdomen: Soft nontender nondistended Psychiatric: Alert and oriented 3, mood normal, judgment and insight appropriate. review of systems: Shortness of breath at baseline, no chest pain, palpitations , abdominal pain, nausea, vomiting or diarrhea.
--- NOTE | 2019-10-05 16:14 | PN ---
Subjective Date of Service: 10/05/19 Interval History: Pt is feeling better daily but still not able to walk any significant distance due to SOB. He is comfortable at rest. No chest pain. He notes that the LE edema is improved in his legs. Family History: Unchanged from Admission Social History: Unchanged from Admission Past Medical History: Unchanged from Admission Objective Active Medications: Albuterol/Ipratropium (Duoneb (Albuterol 2.5 Mg/Ipratropium 0.5 Mg)) 1 neb INH Q4H PRN PRN Reason: SOB/WHEEZING Last Admin: 10/04/19 15:33 Dose: 1 neb Amlodipine Besylate (Norvasc Tab*) 10 mg PO DAILY [facility] Last Admin: 10/05/19 09:37 Dose: 10 mg Atorvastatin Calcium (Lipitor*) 80 mg PO DAILY@1700 [facility] Last Admin: 10/04/19 16:48 Dose: 80 mg Carvedilol (Coreg Tab*) 25 mg PO BID WITH MEALS [facility] Last Admin: 10/05/19 09:38 Dose: 25 mg Clopidogrel Bisulfate (Plavix Tab*) 75 mg PO DAILY [facility] Last Admin: 10/05/19 09:38 Dose: 75 mg Dextrose (Dextrose 50% Vial 50 Ml*) 25 ml IV PUSH .FOR FS < 60 - SS PRN PRN Reason: FS < 60 Heparin Sodium (Porcine) (Heparin Vial(*)) 5,000 units SUBCUT Q12HR [facility] Last Admin: 10/05/19 09:39 Dose: 5,000 units Furosemide 100 mg/ Sodium (Chloride) 100 mls @ 20 mls/hr IV Q5H [facility]; Protocol Last Admin: 10/05/19 11:31 Dose: 20 mls/hr Insulin Human Lispro (Humalog*) 0 units SUBCUT ACHS [facility]; Protocol Last Admin: 10/05/19 12:08 Dose: 8 units Isosorbide Mononitrate (Imdur Er Tab*) 120 mg PO DAILY [facility] Last Admin: 10/05/19 09:38 Dose: 120 mg Lidocaine HCl (Lidocaine 2% Jelly*) 1 applic TOPICAL Q3H PRN PRN Reason: PAIN/CASTRO DISCOMFORT Last Admin: 10/04/19 18:47 Dose: 1 applic Nitroglycerin (Nitroglycerin Tab 0.4 Mg*) 0.4 mg SL Q5M PRN PRN Reason: ANGINA Last Admin: 10/02/19 17:54 Dose: 0.4 mg Oxygen Devices in Use Now: Nasal Cannula Appearance: Middle aged obese male sitting up in a chair, NAD Eyes: No Scleral Icterus Ears/Nose/Mouth/Throat: Mucous Membranes Moist Respiratory: Symmetrical Chest Expansion and Respiratory Effort, - - mildly decreased breath sound R base, otherwise CTA Cardiovascular: RRR, - - marked tense 3+ LE edema B/L Abdominal: NL Sounds; No Tenderness; No Distention Extremities: No Clubbing, Cyanosis Skin: No Nodules or Sclerosis Neurological: Alert and Oriented x 3 Result Diagrams: 10/05/19 05:43 10/05/19 05:43 Additional Lab and Data: Lab Results 10/01/19 Range/Units 22:18 WBC 9.6 (3.5-10.8) 10^3/uL RBC 2.26 L (4.18-5.48) 10^6 /uL Hgb 7.5 L (14.0-18.0) g/dL Hct 22 L (42-52) % MCV 98 H (80-94) fL MCH 33 H (27-31) pg MCHC 34 (31-36) g/dL RDW 21 H (10-15) % Plt Count 107 L (150-450) 10^3/uL MPV 9.6 (7.4-10.4) fL Neut % (Auto) 87.4 % Lymph % (Auto) 8.4 % Foard % (Auto) 3.6 % Eos % (Auto) 0.0 % Baso % (Auto) 0.6 % Absolute Neuts (auto) 8.4 H (1.5-7.7) 10^3/ul Absolute Lymphs (auto) 0.8 L (1.0-4.8) 10^3/ul Absolute Monos (auto) 0.3 (0-0.8) 10^3/ul Absolute Eos (auto) 0.0 (0-0.6) 10^3/ul Absolute Basos (auto) 0.1 (0-0.2) 10^3/ul Absolute Nucleated RBC 0.0 10^3/ul Nucleated RBC % 0.5 Microbiology and Other Data: Microbiology 10/01/19 22:59 Aerobic Blood Culture - Preliminary Blood Venous No Growth Day 3 Anaerobic Blood Culture - Preliminary No Growth Day 3 10/01/19 22:18 Aerobic Blood Culture - Preliminary Blood Venous No Growth Day 3 Anaerobic Blood Culture - Preliminary No Growth Day 3 10/02/19 21:00 Urine Culture - Final Urine No Growth (<1,000 CFU/mL) Assess/Plan/Problems-Billing Mr Loaiza is a 69 yo M with recurrent multiple myeloma, stage III CKD, type II DM, CAD and diastolic CHF who presented to the ER with c/o SOB after receiving 1 unit PRBC. - Patient Problems (1) Acute on chronic diastolic (congestive) heart failure Current Visit: Yes Status: Acute Code(s): I50.33 - ACUTE ON CHRONIC DIASTOLIC (CONGESTIVE) HEART FAILURE SNOMED Code(s): 205268267 Comment: Pt is markedly fluid overloaded with continued marked tense LE edema. He has been diuresing well on the lasix drip. (2) Type II diabetes mellitus Current Visit: Yes Status: Acute Comment: Blood sugars are uncontrolled. He has not been receiving his lantus. Will start lantus 40 units SQ qHS and monitor sugars. Continue lispro sliding scale. (3) Anemia Current Visit: Yes Status: Acute Code(s): D64.9 - ANEMIA, UNSPECIFIED SNOMED Code(s): 376005087 Comment: Chronic in setting of myeloma and CKD. H/H stable over last 2 reads. Continue to monitor. (4) Multiple myeloma Current Visit: Yes Status: Acute Code(s): C90.00 - MULTIPLE MYELOMA NOT HAVING ACHIEVED REMISSION SNOMED Code(s): 917074123 Comment: Management per Dr. Loya. (5) HTN (hypertension) Current Visit: Yes Status: Chronic Code(s): I10 - ESSENTIAL (PRIMARY) HYPERTENSION SNOMED Code(s): 90365771 Comment: BP is mildly elevated. Continue his home doses of amlodipine, coreg and imdur. (6) CAD (coronary artery disease) Current Visit: Yes Status: Chronic Code(s): I25.10 - ATHSCL HEART DISEASE OF [place] CORONARY ARTERY W/O ANG PCTRS SNOMED Code(s): 95940047 Comment: No c/o chest pain. Continue plavix, coreg and imdur. (7) Hypothyroidism Current Visit: Yes Status: Chronic Code(s): E03.9 - HYPOTHYROIDISM, UNSPECIFIED SNOMED Code(s): 28253928 Comment: Resume home dose of synthroid. (8) RADU (obstructive sleep apnea) Current Visit: Yes Status: Chronic Code(s): G47.33 - OBSTRUCTIVE SLEEP APNEA (ADULT) (PEDIATRIC) SNOMED Code(s): 02413962 Comment: Pt does not use CPAP. Continue supplemental O2. (9) DVT prophylaxis Current Visit: Yes Status: Acute Code(s): NAW6515 - SNOMED Code(s): 981752605 Comment: SQ heparin (10) Full code status Current Visit: Yes Status: Acute Code(s): Z78.9 - OTHER SPECIFIED HEALTH STATUS SNOMED Code(s): 890673742
[2019-10-05] MEDS: Atorvastatin* 80 MG TAB PO SCH (17:04)
[2019-10-05] MEDS ORDERED: Insulin GLARGINE(*) 1 UNITS UNIT SUBCUT SCH (21:00)
[2019-10-06] MEDS: Levothyroxine TAB* 75 MCG TAB PO SCH (05:16)
[2019-10-06] MEDS: Furosemide IV* 100 MG in NS 0.9% 100 ML* 90 ML IV SCH ×5 (05:16→21:35)
[2019-10-06] MEDS ORDERED: Cyanocobalamin INJ * 1,000 MCG/ML VIAL 1 ML VIAL IM ONE (06:36)
[2019-10-06] MEDS ORDERED: Furosemide IV* 10 MG/ML 10 ML VIAL (100 MG) ONE (07:27)
[2019-10-06] MEDS: Insulin LISPRO* 1 UNITS UNIT SUBCUT SCH ×4 (08:30→22:49)
[2019-10-06] MEDS: Heparin VIAL(*) 5000 UNITS/ML VIAL (FIVE THOUSAND) SUBCUT SCH ×2 (08:32→22:50)
[2019-10-06] MEDS: Carvedilol TAB* 25 MG PO SCH ×2 (08:33→18:15)
[2019-10-06] MEDS: amLODIPine TAB* 5 MG PO SCH (08:33)
[2019-10-06] MEDS: Isosorbide Mononitrate ER TAB* 60 MG PO SCH (08:33)
[2019-10-06] MEDS: Clopidogrel TAB* 75 MG PO SCH (08:33)
[2019-10-06 09:06] LABS: Albumin 3.6 g/dL (3.2-5.2); BUN/Creatinine Ratio 24.1 (8-20); Calcium 8.9 mg/dL (8.6-10.3); EGFR Non-African American 23.2 (>60); Magnesium 2.2 mg/dL (1.9-2.7); Potassium 3.6 mmol/L (3.5-5.0); Total Protein 7.8 g/dL (6.4-8.9)
[2019-10-06 09:07] LABS: Albumin/Globulin Ratio 0.9 (1-3); Globulin 4.2 g/dL (2-4); Total Bilirubin 0.6 mg/dL (0.2-1.0)
--- NOTE | 2019-10-06 10:58 | PN ---
Progress Note - Progress Note Date of Service: 10/06/19 SOAP: Subjective: []Feeling a lot better today. Yesterday felt crummy. Did have some chest pain yesterday @ approx. 1330 with tele monitor noting an 11 beat run of V.tach. Had not radiating pain and passed without intervention. Breathing feels good, no SOB. Hasn't been moving very much however. Anxious to get out of the hospital. Edema cont.'s to improve. Medications: Albuterol/Ipratropium (Duoneb (Albuterol 2.5 Mg/Ipratropium 0.5 Mg)) 1 neb INH Q4H PRN PRN Reason: SOB/WHEEZING Last Admin: 10/04/19 15:33 Dose: 1 neb Amlodipine Besylate (Norvasc Tab*) 10 mg PO DAILY [facility] Last Admin: 10/06/19 08:33 Dose: 10 mg Atorvastatin Calcium (Lipitor*) 80 mg PO DAILY@1700 [facility] Last Admin: 10/05/19 17:04 Dose: 80 mg Carvedilol (Coreg Tab*) 25 mg PO BID WITH MEALS [facility] Last Admin: 10/06/19 08:33 Dose: 25 mg Clopidogrel Bisulfate (Plavix Tab*) 75 mg PO DAILY [facility] Last Admin: 10/06/19 08:33 Dose: 75 mg Dextrose (Dextrose 50% Vial 50 Ml*) 25 ml IV PUSH .FOR FS < 60 - SS PRN PRN Reason: FS < 60 Heparin Sodium (Porcine) (Heparin Vial(*)) 5,000 units SUBCUT Q12HR [facility] Last Admin: 10/06/19 08:32 Dose: 5,000 units Furosemide 100 mg/ Sodium (Chloride) 100 mls @ 20 mls/hr IV Q5H [facility]; Protocol Last Admin: 10/06/19 08:29 Dose: 20 mls/hr Insulin Glargine (Lantus(*)) 40 units SUBCUT BEDTIME [facility] Last Admin: 10/05/19 21:06 Dose: 40 units Insulin Human Lispro (Humalog*) 0 units SUBCUT ACHS [facility]; Protocol Last Admin: 10/06/19 08:30 Dose: 4 units Isosorbide Mononitrate (Imdur Er Tab*) 120 mg PO DAILY [facility] Last Admin: 10/06/19 08:33 Dose: 120 mg Levothyroxine Sodium (Synthroid Tab*) 75 mcg PO DAILY@0600 [facility] Last Admin: 10/06/19 05:16 Dose: 75 mcg Lidocaine HCl (Lidocaine 2% Jelly*) 1 applic TOPICAL Q3H PRN PRN Reason: PAIN/CASTRO DISCOMFORT Last Admin: 10/04/19 18:47 Dose: 1 applic Nitroglycerin (Nitroglycerin Tab 0.4 Mg*) 0.4 mg SL Q5M PRN PRN Reason: ANGINA Last Admin: 10/02/19 17:54 Dose: 0.4 mg Objective: [] Vital Signs Temp Pulse Resp BP Pulse Ox 97.8 F 62 18 144/64 100 10/06/19 07:53 10/06/19 07:53 10/06/19 07:53 10/06/19 07:53 10/06/19 07:53 A&Ox3, EOMI, neuro grossly non-focal HRR, S1S2 LS dim. to bases, dry cough without wheeze appreciated Obese +3 edema bilat. Legs Laboratory Results - last 24 hr 10/05/19 10/05/19 10/05/19 11:22 16:29 19:41 Sodium Potassium Chloride Carbon Dioxide Anion Gap BUN Creatinine Est GFR ( Amer) Est GFR (Non-Af Amer) BUN/Creatinine Ratio Glucose POC Glucose (mg/dL) 319 H 261 H 310 H Calcium Magnesium Total Bilirubin AST ALT Alkaline Phosphatase Total Protein Albumin Globulin Albumin/Globulin Ratio 10/06/19 10/06/19 07:43 08:25 Sodium 135 Potassium 3.6 Chloride 98 L Carbon Dioxide 31 Anion Gap 6 BUN 66 H Creatinine 2.74 H Est GFR ( Amer) 28.0 Est GFR (Non-Af Amer) 23.2 BUN/Creatinine Ratio 24.1 H Glucose 218 H POC Glucose (mg/dL) 246 H Calcium 8.9 Magnesium 2.2 Total Bilirubin 0.60 AST 11 L ALT 15 Alkaline Phosphatase 78 Total Protein 7.8 Albumin 3.6 Globulin 4.2 H Albumin/Globulin Ratio 0.9 L Assessment: []69 year old with relapsed myeloma IgG lambda who recently re-started therapy with Daratumumab, Dex, bortezomib weekly. Presented on day 3 with CHF and SOB after daratumumab and PRBC found to have significant FVO with cardiac renal syndrome now improving with lasix gtt. Plan: []1. Cardiac renal syndrome with FVO, wt. now down ~10lbs - Lasix drip at 20 mg/hr, hopeful to transition to PO in next 24 hours, will discuss with nephrology - Follow I/O, weight, and renal function. 2. Renal function: - Cr improved - appreciate nephrology input. 3. Anemia - stable, follow labs, will need IV lasix should he require any transfusions in the future 4. DM - persistent AM glucose >200, inc. lantus to 50 u qHS 5. Myeloma: initiated therapy last week - due for D8, will give Bortezomib today with dex (dose reduced to 20 mg with age >65 and co-morbidities) - delay daratumumab until discharged
[2019-10-06] MEDS ORDERED: Dexamethasone TAB* 4 MG PO ONE (12:00)
[2019-10-06] MEDS ORDERED: BORTEZOMIB SUBCUT ONE ×2 (14:00)
[2019-10-06] MEDS ORDERED: Bortezomib* 2.5 MG/ML **FOR SQ USE** (3.5 MG VIAL) SUBCUT ONE (14:00)
--- NOTE | 2019-10-06 15:04 | PN ---
Progress Note - Progress Note Date of Service: 10/06/19 Note: Inpatient FU Note: Performed by Dr. Miguel Ruiz, [facility] Nephrology 10/06/2019 69 yo wm Known Multiple myeloma~2015 s/p ASCT, s/p recent recurrence & started ChemoRx. Baseline sCr (2.4-2.6) eGFR (25). CKD (4). He was seen in clinic 09/19/2019 with sCr 2.71~09/11/1019. Had Hx of AVERY on CKD, sCr 2.9 2/2 PNA~07/2019. CKD 2/2 DM & HTN vs. Myeloma recurrence Just started ChemoRx and was given large amounts of IVF, s/p Fluid overload from excess IVF, developed AVERY on CKD with sCr 3.47~10/01-10/03. sCr improved with Lasix drip at 20 mg/Hr. 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 A home been on Torsemide 20 mg BID Last sCr 2.74~10/06/2019 was 2.88~10/05/2019 & 3.21~10/04/2019 K is dropping and Co2 is increasing from diuresis. Hes still on Lasix drip. Last I/Os 500/1400, 2000/3500, 2000/5700 & 2200/4800. He is in negative balance for the last 4 days Active Medications: Albuterol/Ipratropium (Duoneb (Albuterol 2.5 Mg/Ipratropium 0.5 Mg)) 1 neb INH Q4H PRN PRN Reason: SOB/WHEEZING Last Admin: 10/04/19 15:33 Dose: 1 neb Amlodipine Besylate (Norvasc Tab*) 10 mg PO DAILY [facility] Last Admin: 10/06/19 08:33 Dose: 10 mg Atorvastatin Calcium (Lipitor*) 80 mg PO DAILY@1700 [facility] Last Admin: 10/05/19 17:04 Dose: 80 mg Carvedilol (Coreg Tab*) 25 mg PO BID WITH MEALS [facility] Last Admin: 10/06/19 08:33 Dose: 25 mg Clopidogrel Bisulfate (Plavix Tab*) 75 mg PO DAILY [facility] Last Admin: 10/06/19 08:33 Dose: 75 mg Dextrose (Dextrose 50% Vial 50 Ml*) 25 ml IV PUSH .FOR FS < 60 - SS PRN PRN Reason: FS < 60 Heparin Sodium (Porcine) (Heparin Vial(*)) 5,000 units SUBCUT Q12HR [facility] Last Admin: 10/06/19 08:32 Dose: 5,000 units Furosemide 100 mg/ Sodium (Chloride) 100 mls @ 20 mls/hr IV Q5H [facility]; Protocol Last Admin: 10/06/19 08:29 Dose: 20 mls/hr Insulin Glargine (Lantus(*)) 50 units SUBCUT BEDTIME [facility] Insulin Human Lispro (Humalog*) 0 units SUBCUT ACHS [facility]; Protocol Last Admin: 10/06/19 12:40 Dose: 10 units Isosorbide Mononitrate (Imdur Er Tab*) 120 mg PO DAILY [facility] Last Admin: 10/06/19 08:33 Dose: 120 mg Levothyroxine Sodium (Synthroid Tab*) 75 mcg PO DAILY@0600 [facility] Last Admin: 10/06/19 05:16 Dose: 75 mcg Lidocaine HCl (Lidocaine 2% Jelly*) 1 applic TOPICAL Q3H PRN PRN Reason: PAIN/CASTRO DISCOMFORT Last Admin: 10/04/19 18:47 Dose: 1 applic Nitroglycerin (Nitroglycerin Tab 0.4 Mg*) 0.4 mg SL Q5M PRN PRN Reason: ANGINA Last Admin: 10/02/19 17:54 Dose: 0.4 mg Objective: .Vital Signs: Vital Signs Temp 98.2 F 10/06/19 11:50 Pulse 61 10/06/19 11:50 Resp 16 10/06/19 11:50 BP 137/67 10/06/19 11:50 Pulse Ox 99 10/06/19 11:50 Intake & Output 10/05/19 10/06/19 10/06/19 18:59 06:59 18:59 Intake Total 1510 461 480 Output Total 2200 1290 1410 Balance -690 829 -930 Weight 113.988 kg Intake: IV Fluids 100 10 Lasix gtt 100 10 IVPB 351 Lasix gtt 351 Oral 1410 100 480 Output: Urine 2200 1290 1410 Other: Estimated Void Small # Bowel Movements 1 # Voids 1 2 .Heart: Regular rate and rhythm No murmur or gallop LE Edema No Rub .Lungs: Clear to auscultation and percussion No wheezes or Crackles .Extremities: No amputations No LE edema No varicosities No HD Access Laboratory Reviewed ABG pH 7.36 (7.35-7.45) 10/01/19 23:00 ABG HCO3 18.9 mmol/L (19-31) L 10/01/19 23:00 Sodium 135 mmol/L (135-145) 10/06/19 08:25 Potassium 3.6 mmol/L (3.5-5.0) 10/06/19 08:25 BUN 66 mg/dL (6-24) H 10/06/19 08:25 Creatinine 2.74 mg/dL (0.67-1.17) H 10/06/19 08:25 Calcium 8.9 mg/dL (8.6-10.3) 10/06/19 08:25 Magnesium 2.2 mg/dL (1.9-2.7) 10/06/19 08:25 AST 11 U/L (13-39) L 10/06/19 08:25 ALT 15 U/L (7-52) 10/06/19 08:25 Assessment and Plan: AVERY on CKD: recovered, yet recurrent from different causes over the past few months. Fluid overload, improving but still has significant edema, advise continuing Lasix drip, same rate. He'll need increased Torsemide upon discharge. Electrolytes: K dropping, replace as necessary to keep K >4.0 Co2 going up, advise ABG if CO2>35. He was informed about lab/radiology results & prognosis. All questions were answered. He was made part of the treatment plan.
[2019-10-06] MEDS: Atorvastatin* 80 MG TAB PO SCH (18:15)
[2019-10-06] MEDS ORDERED: Insulin GLARGINE(*) 1 UNITS UNIT SUBCUT SCH (21:00)
[2019-10-07] MEDS: Furosemide IV* 100 MG in NS 0.9% 100 ML* 90 ML IV SCH ×5 (03:20→22:01)
[2019-10-07] MEDS: Levothyroxine TAB* 75 MCG TAB PO SCH (05:12)
[2019-10-07 07:07] LABS: ABS Lymphocytes 0.6 10^3/ul (1.0-4.8); ABS Monocytes 0.1 10^3/ul (0-0.8); ABS Neutrophils 4.3 10^3/ul (1.5-7.7); Hematocrit 23 % (42-52); Hemoglobin 7.7 g/dL (14.0-18.0); Lymphocyte % 11.3 %; Mean Corpuscular HGB Conc 34 g/dL (31-36); Mean Corpuscular Hemoglobin 33 pg (27-31); Mean Corpuscular Volume 96 fL (80-94); Mean Platelet Volume 9.1 fL (7.4-10.4); Nucleated Red Blood Cells % 0.1; Platelet Count 114 10^3/uL (150-450); Red Blood Count 2.36 10^6 /uL (4.18-5.48); Red Cell Distribution Width 19 % (10-15); White Blood Count 4.9 10^3/uL (3.5-10.8)
[2019-10-07 07:22] LABS: Albumin 3.4 g/dL (3.2-5.2); Albumin/Globulin Ratio 0.9 (1-3); BUN/Creatinine Ratio 25.5 (8-20); Calcium 8.2 mg/dL (8.6-10.3); EGFR Non-African American 23.2 (>60); Globulin 3.7 g/dL (2-4); Potassium 3.6 mmol/L (3.5-5.0); Total Bilirubin 0.5 mg/dL (0.2-1.0); Total Protein 7.1 g/dL (6.4-8.9)
[2019-10-07] MEDS: Isosorbide Mononitrate ER TAB* 60 MG PO SCH (08:49)
[2019-10-07] MEDS: Clopidogrel TAB* 75 MG PO SCH (08:49)
[2019-10-07] MEDS: amLODIPine TAB* 5 MG PO SCH (08:49)
[2019-10-07] MEDS: Heparin VIAL(*) 5000 UNITS/ML VIAL (FIVE THOUSAND) SUBCUT SCH ×2 (08:50→22:02)
[2019-10-07] MEDS: Carvedilol TAB* 25 MG PO SCH ×2 (08:50→17:18)
[2019-10-07] MEDS: Insulin LISPRO* 1 UNITS UNIT SUBCUT SCH ×4 (09:23→22:03)
[2019-10-07] MEDS ORDERED: Insulin LISPRO* 1 UNITS UNIT SUBCUT ONE ×4 (10:00→21:53)
--- NOTE | 2019-10-07 15:15 | PN ---
Progress Note - Progress Note Date of Service: 10/07/19 Note: Inpatient Nephrlogy Note: Performed by Dr. Miguel Ruiz, [facility] Nephrology 10/07/2019 69 yo wm Known Multiple myeloma~2014, s/p ASCT s/p recent recurrence & started ChemoRx. Baseline sCr (2.4-2.6) sCr 2.71~09/11/1019. eGFR (25). CKD (4). At home, was on Torsemide 20 mg BID Admitted with severe Fluid overload from excess IVF & AVERY on CKD s/p Lasix drip at 20 mg/Hr. Peak sCr 3.47~10/01-10/03. Last sCr 2.74~10/07/2019 was 2.74~10/06/2019, 2.88~10/05/2019 & 3.21~10/04/2019 Last I/Os 1200/2200, 2000/3500, 2000/5700 & 2200/4800. He is in negative balance. Active Medications: Albuterol/Ipratropium (Duoneb (Albuterol 2.5 Mg/Ipratropium 0.5 Mg)) 1 neb INH Q4H PRN PRN Reason: SOB/WHEEZING Last Admin: 10/04/19 15:33 Dose: 1 neb Amlodipine Besylate (Norvasc Tab*) 10 mg PO DAILY [facility] Last Admin: 10/07/19 08:49 Dose: 10 mg Atorvastatin Calcium (Lipitor*) 80 mg PO DAILY@1700 [facility] Last Admin: 10/06/19 18:15 Dose: 80 mg Carvedilol (Coreg Tab*) 25 mg PO BID WITH MEALS [facility] Last Admin: 10/07/19 08:50 Dose: 25 mg Clopidogrel Bisulfate (Plavix Tab*) 75 mg PO DAILY [facility] Last Admin: 10/07/19 08:49 Dose: 75 mg Dextrose (Dextrose 50% Vial 50 Ml*) 25 ml IV PUSH .FOR FS < 60 - SS PRN PRN Reason: FS < 60 Heparin Sodium (Porcine) (Heparin Vial(*)) 5,000 units SUBCUT Q12HR [facility] Last Admin: 10/07/19 08:50 Dose: 5,000 units Furosemide 100 mg/ Sodium (Chloride) 100 mls @ 20 mls/hr IV Q5H [facility]; Protocol Last Admin: 10/07/19 08:50 Dose: 20 mls/hr Insulin Glargine (Lantus(*)) 60 units SUBCUT BEDTIME [facility] Insulin Human Lispro (Humalog*) 0 units SUBCUT ACHS [facility]; Protocol Last Admin: 10/07/19 14:06 Dose: Not Given Isosorbide Mononitrate (Imdur Er Tab*) 120 mg PO DAILY [facility] Last Admin: 10/07/19 08:49 Dose: 120 mg Levothyroxine Sodium (Synthroid Tab*) 75 mcg PO DAILY@0600 [facility] Last Admin: 10/07/19 05:12 Dose: 75 mcg Lidocaine HCl (Lidocaine 2% Jelly*) 1 applic TOPICAL Q3H PRN PRN Reason: PAIN/CASTRO DISCOMFORT Last Admin: 10/04/19 18:47 Dose: 1 applic Nitroglycerin (Nitroglycerin Tab 0.4 Mg*) 0.4 mg SL Q5M PRN PRN Reason: ANGINA Last Admin: 10/02/19 17:54 Dose: 0.4 mg Objective: .Vital Signs: Vital Signs Temp 97.3 F 10/07/19 11:05 Pulse 62 10/07/19 11:05 Resp 16 10/07/19 11:05 BP 107/62 10/07/19 11:05 Pulse Ox 99 10/07/19 11:05 Intake & Output 10/06/19 10/07/19 10/07/19 18:59 06:59 18:59 Intake Total 165 429 4434 Output Total 1410 850 720 Balance -450 -600 280 Weight 113.716 kg Intake: IV Fluids 150 Lasix gtt 139 NS (0.9%) 11 IVPB 100 Lasix gtt 100 Oral 960 0 1000 Output: Urine 1410 850 720 Other: # Voids 2 Heart: Regular rate and rhythm No murmur or gallop ++ LE Edema .Lungs: No wheezes or Crackles .Extremities: ++ LE edema Laboratory Reviewed ABG pH 7.36 (7.35-7.45) 10/01/19 23:00 ABG HCO3 18.9 mmol/L (19-31) L 10/01/19 23:00 Sodium 130 mmol/L (135-145) L 10/07/19 06:37 Potassium 3.6 mmol/L (3.5-5.0) 10/07/19 06:37 BUN 70 mg/dL (6-24) H 10/07/19 06:37 Creatinine 2.74 mg/dL (0.67-1.17) H 10/07/19 06:37 Calcium 8.2 mg/dL (8.6-10.3) L 10/07/19 06:37 Magnesium 2.0 mg/dL (1.9-2.7) 10/07/19 06:37 AST 10 U/L (13-39) L 10/07/19 06:37 ALT 14 U/L (7-52) 10/07/19 06:37 Assessment and Plan: Fluid overload, improving but still has significant edema. Need to transition him from Lasix drip, as he doesn't have to be kept inpatient for diuresis. May switch to IV Lasix pushes 60 mg TID & later to PO Torsemide upon discharge. Keep K >4.0. Na is 130, but Glucose >450, dilutional Hyponatremia, so true Na >135.
[2019-10-07] MEDS: Atorvastatin* 80 MG TAB PO SCH (17:18)
[2019-10-07] MEDS ORDERED: Dextrose 50% VIAL 50 ml IV PUSH PRN (21:53)
[2019-10-07] MEDS: Insulin GLARGINE(*) 1 UNITS UNIT SUBCUT SCH (22:03)
[2019-10-08] MEDS: Furosemide IV* 100 MG in NS 0.9% 100 ML* 90 ML IV SCH ×2 (02:13→10:43)
[2019-10-08] MEDS: Levothyroxine TAB* 75 MCG TAB PO SCH (06:07)
[2019-10-08 08:36] LABS: ABS Monocytes 0.6 10^3/ul (0-0.8); Hematocrit 24 % (42-52); Hemoglobin 8.3 g/dL (14.0-18.0); Lymphocyte % 12.7 %; Mean Corpuscular HGB Conc 35 g/dL (31-36); Mean Corpuscular Hemoglobin 33 pg (27-31); Mean Corpuscular Volume 95 fL (80-94); Mean Platelet Volume 9.2 fL (7.4-10.4); Platelet Count 112 10^3/uL (150-450); Red Cell Distribution Width 20 % (10-15); White Blood Count 7.5 10^3/uL (3.5-10.8)
[2019-10-08] MEDS: Clopidogrel TAB* 75 MG PO SCH (08:46)
[2019-10-08] MEDS: amLODIPine TAB* 5 MG PO SCH (08:46)
[2019-10-08] MEDS: Heparin VIAL(*) 5000 UNITS/ML VIAL (FIVE THOUSAND) SUBCUT SCH ×2 (08:46→21:49)
[2019-10-08] MEDS: Isosorbide Mononitrate ER TAB* 60 MG PO SCH (08:46)
[2019-10-08] MEDS: Carvedilol TAB* 25 MG PO SCH ×2 (08:46→17:05)
[2019-10-08] MEDS: Insulin LISPRO* 1 UNITS UNIT SUBCUT SCH ×4 (08:47→21:51)
[2019-10-08 08:52] LABS: Albumin 3.6 g/dL (3.2-5.2); Albumin/Globulin Ratio 0.9 (1-3); BUN/Creatinine Ratio 28.3 (8-20); Calcium 8.9 mg/dL (8.6-10.3); EGFR African American 26.2 (>60); EGFR Non-African American 21.7 (>60); Magnesium 2.2 mg/dL (1.9-2.7); Potassium 3.7 mmol/L (3.5-5.0); Total Bilirubin 0.4 mg/dL (0.2-1.0); Total Protein 7.6 g/dL (6.4-8.9)
[2019-10-08] MEDS: Furosemide IV* 10 MG/ML 10 ML VIAL (100 MG) IV SCH ×2 (13:07→21:48)
[2019-10-08] MEDS: Atorvastatin* 80 MG TAB PO SCH (17:05)
[2019-10-08] MEDS: Insulin GLARGINE(*) 1 UNITS UNIT SUBCUT SCH (21:50)
[2019-10-09] MEDS: Levothyroxine TAB* 75 MCG TAB PO SCH (06:50)
[2019-10-09 08:01] VITALS: BP 138/55
[2019-10-09] MEDS ORDERED: Insulin GLARGINE(*) 1 UNITS UNIT SUBCUT SCH (09:00)
[2019-10-09] MEDS: Heparin VIAL(*) 5000 UNITS/ML VIAL (FIVE THOUSAND) SUBCUT SCH (09:22)
[2019-10-09] MEDS: Furosemide IV* 10 MG/ML 10 ML VIAL (100 MG) IV SCH (09:22)
[2019-10-09] MEDS: Clopidogrel TAB* 75 MG PO SCH (09:23)
[2019-10-09] MEDS: Isosorbide Mononitrate ER TAB* 60 MG PO SCH (09:23)
[2019-10-09] MEDS: Insulin LISPRO* 1 UNITS UNIT SUBCUT SCH (09:23)
[2019-10-09] MEDS: Carvedilol TAB* 25 MG PO SCH (09:23)
[2019-10-09] MEDS: amLODIPine TAB* 5 MG PO SCH (09:23)
[2019-10-09 09:59] LABS: ABS Monocytes 0.5 10^3/ul (0-0.8); ABS Neutrophils 4.6 10^3/ul (1.5-7.7); Eosinophil % 0.7 %; Hematocrit 25 % (42-52); Hemoglobin 8.4 g/dL (14.0-18.0); Lymphocyte % 16.5 %; Mean Corpuscular HGB Conc 34 g/dL (31-36); Mean Corpuscular Hemoglobin 33 pg (27-31); Mean Corpuscular Volume 97 fL (80-94); Mean Platelet Volume 9.2 fL (7.4-10.4); Nucleated Red Blood Cells % 0.1; Platelet Count 101 10^3/uL (150-450); Red Blood Count 2.56 10^6 /uL (4.18-5.48); Red Cell Distribution Width 20 % (10-15); White Blood Count 6.2 10^3/uL (3.5-10.8)
[2019-10-09 10:16] LABS: Albumin 3.5 g/dL (3.2-5.2); BUN/Creatinine Ratio 28.4 (8-20); Calcium 8.8 mg/dL (8.6-10.3); EGFR African American 26.8 (>60); EGFR Non-African American 22.1 (>60); Globulin 3.6 g/dL (2-4); Magnesium 2.2 mg/dL (1.9-2.7); Potassium 3.5 mmol/L (3.5-5.0); Total Bilirubin 0.5 mg/dL (0.2-1.0); Total Protein 7.1 g/dL (6.4-8.9)
--- NOTE | 2019-10-09 18:00 | DS ---
CC: Aditya Weston NP; Dr. Ruiz * DISCHARGE SUMMARY: DATE OF ADMISSION: 10/02/19 DATE OF DISCHARGE: 10/09/19 PRIMARY CARE PROVIDER: Aditya Weston NP PRIMARY ONCOLOGIST AND ATTENDING PHYSICIAN: Dr. Thad Loya.* (DICTATED BY ALEJANDRINA CEDILLO) CONSULTING MANAGER RN: Dr. Ruiz. DISCHARGING PROVIDER: ALEJANDRINA Cedillo PRIMARY DISCHARGE DIAGNOSES: 1. Acute on chronic diastolic heart failure with pulmonary and peripheral edema. 2. Acute on chronic renal insufficiency likely secondary to some element of cardiorenal syndrome, improved with diuresis. 3. Insulin-dependent diabetes. 4. Chronic anemia. 5. Relapsed multiple myeloma. 6. Hypertension. 7. History of coronary artery disease. 8. Obstructive sleep apnea. 9. Hypothyroidism. DISCHARGE MEDICATIONS: 1. Acetaminophen 500 mg p.o. q.6 hours as needed for pain or fever. 2. Albuterol inhaler 1 puff inhaled every 4 to 6 hours as needed for shortness of breath. 3. Alprazolam 0.5 mg p.o. twice daily. 4. Amlodipine 10 mg p.o. daily. 5. Atorvastatin 80 mg p.o. daily. 6. Benzonatate 100 mg p.o. t.i.d. as needed for cough. 7. Symbicort 1 puff inhaled twice daily. 8. Carvedilol 25 mg p.o. twice daily. 9. Vitamin D 2000 units p.o. daily. 10. Plavix 75 mg p.o. daily. 11. Gabapentin 300 mg p.o. twice daily. 12. Lantus 60 units subcu daily. 13. Humalog 18 units subcu at meal time. 14. Lansoprazole 15 mg p.o. daily. 15. Levothyroxine 75 mcg p.o. daily. 16. Lidoderm patch 1 patch apply transdermally daily. 17. Multivitamin 1 capsule p.o. daily. 18. Nystatin cream apply topically twice daily as needed. 19. Triamcinolone 0.5% cream apply topically twice daily as needed. 20. Isosorbide mononitrate 120 mg p.o. daily. 21. Nitroglycerin 0.4 mg sublingual q.5 minutes p.r.n. chest pain. 22. Torsemide 40 mg p.o. twice daily. HOSPITAL IMAGING: Chest x-ray, 10/01/19, shows suggestion of right basilar infiltrate and cardiomegaly with interstitial edema. HOSPITAL COURSE: This is a 69-year-old gentleman with relapsed myeloma, followed by Dr. Loya, who presented to the emergency department with complaints of acute dyspnea shortly following a blood transfusion and 2 days of daratumumab infusions with typical corticosteroids as pretreatments. The patient was initially hypoxic, measuring 77% on room air, quickly improved with supplemental oxygen. Chest x-ray demonstrated pulmonary edema and possible basilar infiltrate and he was grossly edematous peripherally. Heart rate and blood pressure were within normal limits. The patient's baseline creatinine is somewhere in the mid 2 range, but was noted to be 3.47 at the time of admission. The patient was subsequently admitted and diuresed with IV Lasix. Serial troponins demonstrated just a small rise to 0.03, but no evidence of an acute ischemic event. The patient had had an echocardiogram just 2 months prior to admission that showed no systolic dysfunction, but perhaps some suggestion of mild diastolic dysfunction. The patient has a known history of coronary artery disease and is on chronic diuretics via torsemide at home. The patient was seen by Nephrology, who recommended diuresis with a Lasix drip. This was eventually effective in inducing large volume diuresis and his renal function slowly improved throughout his hospital stay reaching near his baseline discharge at 2.85. The patient's respiratory status improved and he no longer required supplemental oxygen during the day. He chronically requires nighttime oxygen and has a known history of sleep apnea and that was reproduced during his hospital stay. DISPOSITION AND FOLLOWUP PLAN: The patient is being discharged to home in stable condition. She is being discharged on twice his usual home dose of torsemide and has followup with both Oncology and Nephrology. He is asked to closely monitor his weight daily and call with an increase of 3 pounds in 1 day or 5 pounds in 1 week. We will plan to continue his current myeloma therapy without changes. ALEJANDRINA CEDILLO [id number]/[facility] #: [id number] [facility]
== END 2019-10-09 12:41 | disposition home or self-care (01) | DRG 194 ==
LOC: ED 21:47 → MEDTELE 10-02 01:23
PROVIDERS: ADMIT Student in an Organized Health Care Education/Training Program; ATTEND Internal Medicine Hematology & Oncology
DX: I13.0 Hypertensive heart and chronic kidney disease with heart failure and stage 1 through stage 4 chronic kidney disease, or unspecified chronic kidney disease (principal); J96.01 Acute respiratory failure with hypoxia; I50.33 Acute on chronic diastolic (congestive) heart failure; N17.9 Acute kidney failure, unspecified; C90.02 Multiple myeloma in relapse; E87.1 Hypo-osmolality and hyponatremia; N18.4 Chronic kidney disease, stage 4 (severe); Z94.84 Stem cells transplant status; Z68.41 Body mass index [BMI] 40.0-44.9, adult; E11.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mellitus with diabetic chronic kidney disease; I25.10 Atherosclerotic heart disease of native coronary artery without angina pectoris; E78.00 Pure hypercholesterolemia, unspecified; E78.5 Hyperlipidemia, unspecified; J44.9 Chronic obstructive pulmonary disease, unspecified; M19.012 Primary osteoarthritis, left shoulder; E11.42 Type 2 diabetes mellitus with diabetic polyneuropathy; F41.9 Anxiety disorder, unspecified; F32.9 Major depressive disorder, single episode, unspecified; F40.240 Claustrophobia; E03.9 Hypothyroidism, unspecified; E66.01 Morbid (severe) obesity due to excess calories; D63.1 Anemia in chronic kidney disease; R53.82 Chronic fatigue, unspecified; K21.9 Gastro-esophageal reflux disease without esophagitis; G47.33 Obstructive sleep apnea (adult) (pediatric); Z88.0 Allergy status to penicillin; Z95.5 Presence of coronary angioplasty implant and graft; Z86.73 Personal history of transient ischemic attack (TIA), and cerebral infarction without residual deficits; Z88.1 Allergy status to other antibiotic agents; Z85.820 Personal history of malignant melanoma of skin; Z98.42 Cataract extraction status, left eye; Z98.41 Cataract extraction status, right eye; Z87.891 Personal history of nicotine dependence; Z79.02 Long term (current) use of antithrombotics/antiplatelets; Z79.890 Hormone replacement therapy; Z79.52 Long term (current) use of systemic steroids; Z79.4 Long term (current) use of insulin
CPT/HCPCS: 36415; 71045; 80048; 80053; 81003; 81015; 82803; 82947; 83036; 83605; 83735; 83880; 84484; 85025; 85610; 86803; 87040; 87086; 93005; 94640; 96374; 99232; 99233; 99239; 99284; A9270-GY; G8978-GP-CI; G8979-GP-CI; G8980-GP-CI; J1644; J1940; J3420; J8540; J9041

== ENCOUNTER 2019-12-11 08:09 | Inpatient (IN) | payer MEDICARE ==
[2019-12-11] MEDS ORDERED: Furosemide IV* 10 MG/ML 10 ML VIAL (100 MG) IV ONE (08:28)
[2019-12-11] MEDS ORDERED: Albuterol/Ipratropium NEB.SOL* Albuterol 2.5 MG/Ipratropium 0.5 MG 3 ML INH ONE (08:36)
[2019-12-11 08:47] LABS: ABS Eosinophils 0.1 10^3/ul (0-0.6); ABS Lymphocytes 1.1 10^3/ul (1.0-4.8); ABS Monocytes 0.8 10^3/ul (0-0.8); ABS Neutrophils 5.5 10^3/ul (1.5-7.7); Eosinophil % 1.1 %; Hematocrit 30 % (42-52); Lymphocyte % 14.9 %; Mean Corpuscular HGB Conc 34 g/dL (31-36); Mean Corpuscular Hemoglobin 32 pg (27-31); Mean Corpuscular Volume 96 fL (80-94); Mean Platelet Volume 8.1 fL (7.4-10.4); Nucleated Red Blood Cells % 0.1; Platelet Count 78 10^3/uL (150-450); Red Blood Count 3.13 10^6 /uL (4.18-5.48); Red Cell Distribution Width 20 % (10-15); White Blood Count 7.6 10^3/uL (3.5-10.8)
[2019-12-11 08:51] LABS: INR 0.98 (0.82-1.09)
[2019-12-11 09:03] LABS: Albumin 3.7 g/dL (3.2-5.2); Albumin/Globulin Ratio 1.8 (1-3); BUN/Creatinine Ratio 22.2 (8-20); C Reactive Protein 4.47 mg/L (<8.01); Calcium 8.4 mg/dL (8.6-10.3); EGFR African American 30.9 (>60); EGFR Non-African American 25.5 (>60); Globulin 2.1 g/dL (2-4); Potassium 3.8 mmol/L (3.5-5.0); Total Bilirubin 0.6 mg/dL (0.2-1.0); Total Protein 5.8 g/dL (6.4-8.9)
[2019-12-11 09:10] LABS: Troponin I 0.03 ng/mL (<0.03)
[2019-12-11] MEDS ORDERED: Nitroglycerin TAB 0.4 MG* 0.4 MG TAB SL ONE (09:22)
--- NOTE | 2019-12-11 10:33 | ED ---
Shortness of Breath - HPI Summary HPI Summary: This patient's a 69-year-old male with a complicated past medical history presented to the ED with shortness of breath over the past few days. He states this has been worsening. He is only able to sit upright in a chair and continues to be on 3 L. He typically uses 3 L only at bedtime. He also endorses a 25 pound weight gain over the past 3 weeks. He states he is very edematous with abd bloating/pain. Endorses bilateral leg pain and edema. Has not been using his compression stockings until today. Patient is currently receiving weekly chemotherapy treatments for his multiple myeloma and is on 40 mg Lasix twice daily. This was increased from 20 mg twice daily since 2 months ago from his last admission due to pulmonary edema. He also has a history of chronic kidney failure stage IV and is a patient of Dr. Ruiz. Denies urinary symptoms. Continue to eat and drink OK. Has taken all of his medications as scheduled. No fevers, sweats, chills or recent illness. Mild cough, no production. Unable to lie flat. Denies dizziness, PUCKETT. - History of Current Complaint Chief Complaint: EDShortnessOfBreath Time Seen by Provider: 12/11/19 08:15 Hx Obtained From: Patient Onset/Duration: Gradual Onset Timing: Constant Current Severity: Moderate Dyspnea At: Orthopena Aggravating Factors: Movement Alleviating Factors: Upright Position Associated Signs & Symptoms: Edema - Allergy/Home Medications Allergies/Adverse Reactions: Allergies Allergy/AdvReac Type Severity Reaction Status Date / Time amoxicillin AdvReac Diarrhea Verified 12/11/19 08:12 clavulanic acid AdvReac Dizziness Verified 12/11/19 08:12 Home Medications: Home Medications Cholecalciferol TAB* [Vitamin D TAB*] 2,000 units PO DAILY 05/21/18 [History Confirmed 12/11/19] Isosorbide Mononitrate ER TAB* [Imdur ER TAB*] 120 mg PO DAILY tab.er 05/31/18 [Rx Confirmed 12/11/19] Nitroglycerin TAB 0.4 MG* 0.4 mg SL Q5M PRN tab 05/31/18 [Rx Confirmed 12/11/19 ] Albuterol HFA INHALER* [Ventolin HFA Inhaler*] 1 puff INH .Q4-6H PRN 09/02/18 [ History Confirmed 12/11/19] Atorvastatin* [Lipitor 80 MG*] 80 mg PO 1700 09/02/18 [History Confirmed ] Carvedilol TAB* [Coreg TAB*] 25 mg PO BID WITH MEALS 09/02/18 [History Confirmed 12/11/19] Clopidogrel TAB* [Plavix TAB*] 75 mg PO DAILY 09/02/18 [History Confirmed ] Gabapentin CAP(*) [Neurontin 300 CAP(*)] 300 mg PO BID 09/02/18 [History Confirmed 12/11/19] Insulin GLARGINE(*) [Lantus 100 unist/ml 10 ml VIAL (*)] 60 units SUBCUT QPM 10/08 [History Confirmed 12/11/19] Levothyroxine TAB* [Synthroid TAB*] 75 mcg PO DAILY 09/02/18 [History Confirmed 12/11/19] Multivitamin [Multivitamins] 1 cap PO DAILY 09/02/18 [History Confirmed 12/11/19 ] amLODIPine TAB* [Norvasc 5 mg TAB*] 10 mg PO DAILY 09/02/18 [History Confirmed 12/11/19] ALPRAZolam TAB* [Xanax TAB*] 0.5 mg PO BID PRN 10/29/18 [History Confirmed 12/11] Lidocaine PATCH 5%* [Lidoderm 5% Patch*] 1 patch TRANSDERM DAILY 10/29/18 [ History Confirmed 12/11/19] Nystatin CREAM* [Nystatin Cream*] 1 applic TOPICAL TID PRN 10/29/18 [History Confirmed 12/11/19] Triamcinolone 0.5% CREAM(NF) [Triamcinolone 0.5% CREAM*] 1 applic TOPICAL BID [History Confirmed 12/11/19] Insulin Lispro [Humalog Kwikpen U-200 200 units/ml 3 ml x 2 Pens] 20 unit SC AC 11/21/18 [History Confirmed 12/11/19] Acetaminophen [Tylenol Extra Strength] 500 mg PO Q6HR PRN 03/20/19 [History Confirmed 12/11/19] Budesonide/Formote 80/4.5(NF) [Symbicort 80/4.5 (NF)] 1 puff INH BID 03/20/19 [ History Confirmed 12/11/19] Benzonatate CAP* [Tessalon 100 MG CAP*] 100 mg PO TID PRN 07/27/19 [History Confirmed 12/11/19] Lansoprazole CAP (NF) [Prevacid CAP (NF)] 15 mg PO DAILY 07/27/19 [History Confirmed 12/11/19] Torsemide TAB* [Demadex 20 MG*] 40 mg PO BID #120 tab 10/09/19 [Rx Confirmed ] Cephalexin CAP* [Keflex 500 CAP*] 500 mg PO TID 12/11/19 [History Confirmed ] Insulin Lispro Protamin/Lispro [Humalog Mix 75-25 Kwikpen 3 ml x 5 Pens] 60 units SUBCUT SEE INSTRUCTIONS 12/11/19 [History Confirmed 12/11/19] Valacyclovir HCl [Valacyclovir] 1 tab PO TID 12/11/19 [History Confirmed ] PMH/Surg Hx/FS Hx/Imm Hx Previously Healthy: No Endocrine/Hematology History: Reports: Hx Bone Marrow Disease - Multiple myeloma , Present (2019), Hx Anemia - history of, not recent, Other Endocrine/Hematological Disorders Denies: Hx Diabetes, Hx Thyroid Disease Cardiovascular History: Reports: Hx Angina - unstable angina, Hx Congestive Heart Failure, Hx Coronary Artery Disease - 3 cardiac stents, 2010 & 2012, Hx Hypercholesterolemia, Hx Hypertension, Other Cardiovascular Problems/Disorders - hyperlipidemia, 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 Denies: Hx Pulmonary Edema, Other Respiratory Problems/Disorders GI History: Reports: Hx Gastroesophageal Reflux Disease - on medication, Other GI Disorders - PANCREATITIS History: Reports: Hx Kidney Stones - history of, 3, Other Problems/ Disorders - benign growth on L kidney-follows with Dr Posey Denies: Hx Renal Disease Musculoskeletal History: Reports: Hx Back Problems - arthritis, Hx Tendonitis - right elbow, Other Musculoskeletal History - Right hand thumb and pinky trigger fingers Denies: Hx Arthritis, Hx Osteoporosis Sensory History: Reports: Hx Hearing Problem Denies: Hx Cataracts, Hx Contacts or Glasses, Hx Glaucoma, Hx Hearing Aid Opthamlomology History: Denies: Hx Cataracts, Hx Contacts or Glasses, Hx Glaucoma Neurological History: Reports: Hx Nerve Disease - Neuropathy bilateral feet, hx of carpal tunnel right wrist, Other Neuro Impairments/Disorders - numbness R hand, Rehman's palsy 2008, balance issues, hx of tremors. 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 MULTIPLE Myeloma Hx Chemotherapy: Yes - Surgical History Surgery Procedure, Year, and Place: CAD - HEART STENT - 09/2013 -3X. Carpal tunnel/trigger finger surgery-BILATERAL HANDS. Cataracts-BILATERAL. Rt AXILLA DISSECTION - REMOVED melonama-1977. Stem Cell Transplant, [facility] February 2016. Carpal tunnel Hx Anesthesia Reactions: No - Immunization History Date of Tetanus Vaccine: Unk Date of Influenza Vaccine: Fall 2012 Hx Pertussis Vaccination: No Immunizations Up to Date: Yes Infectious Disease History: No Infectious Disease History: Reports: Hx Shingles - 10/2015 Denies: Hx Clostridium Difficile, Hx Hepatitis, Hx Human Immunodeficiency Virus (HIV), Hx of Known/Suspected MRSA, Hx Tuberculosis, Hx Known/Suspected VRE , Hx Known/Suspected VRSA, History Other Infectious Disease, Traveled Outside the in Last 30 Days - Family History Known Family History: Positive: Cardiac Disease, Diabetes - Social History Occupation: Unemployed Lives: With Family Alcohol Use: Occasionally Alcohol Amount: beer occasionally Hx Substance Use: No Substance Use Type: Reports: None Hx Tobacco Use: Yes Smoking Status (MU): Former Smoker Type: Cigarettes Amount Used/How Often: CIGARS AND PIPE 1-3 TIMES A WEEK WHILE GOLFING Length of Time of Smoking/Using Tobacco: went form about 1pck/d Cigarettes,to pipe occ cigar. Have You Smoked in the Last Year: No Review of Systems Positive: Fatigue. Negative: Fever, Chills, Skin Diaphoresis Negative: Palpitations, Chest Pain Positive: Shortness Of Breath, Cough Negative: Abdominal Pain, Vomiting, Diarrhea Positive: Edema - bilateral 3+. Negative: Arthralgia Negative: Rash, Bruising All Other Systems Reviewed And Are Negative: Yes Physical Exam Triage Information Reviewed: Yes Vital Signs On Initial Exam: Initial Vitals Temp Pulse Resp BP Pulse Ox 97.4 F 66 22 154/86 93 12/11/19 08:10 12/11/19 08:10 12/11/19 08:10 12/11/19 08:10 12/11/19 08:10 Vital Signs Reviewed: Yes Appearance: Positive: Well-Appearing, Well-Nourished Skin: Positive: Warm, Skin Color Reflects Adequate Perfusion Head/Face: Positive: Normal Head/Face Inspection Eyes: Positive: EOMI, AURE, Conjunctiva Clear Neck: Positive: Supple Respiratory/Lung Sounds: Positive: Rhonchi Cardiovascular: Positive: Leg Edema Left, Leg Edema Right Musculoskeletal: Positive: Normal, Strength/ROM Intact Neurological: Positive: Speech Normal Psychiatric: Positive: Affect/Mood Appropriate AVPU Assessment: Alert Procedures - Sedation Patient Received Moderate/Deep Sedation with Procedure: No Diagnostics - Vital Signs Vital Signs Temp Pulse Resp BP Pulse Ox 12/11/19 10:00 56 14 91 12/11/19 09:06 58 20 141/76 93 12/11/19 09:00 58 27 90 12/11/19 08:46 62 22 93 12/11/19 08:25 61 94 12/11/19 08:10 97.4 F 66 22 154/86 93 - Laboratory Lab Results: Lab Results 12/11/19 12/11/19 12/11/19 Range/Units 08:36 08:36 08:36 WBC 7.6 (3.5-10.8) 10^3/uL RBC 3.13 L (4.18-5.48) 10^6 /uL Hgb 10.0 L (14.0-18.0) g/dL Hct 30 L (42-52) % MCV 96 H (80-94) fL MCH 32 H (27-31) pg MCHC 34 (31-36) g/dL RDW 20 H (10-15) % Plt Count 78 L (150-450) 10^3/uL MPV 8.1 (7.4-10.4) fL Neut % (Auto) 72.6 % Lymph % (Auto) 14.9 % [place] % (Auto) 10.9 % Eos % (Auto) 1.1 % Baso % (Auto) 0.5 % Absolute Neuts (auto) 5.5 (1.5-7.7) 10^3/ul Absolute Lymphs (auto) 1.1 (1.0-4.8) 10^3/ul Absolute Monos (auto) 0.8 (0-0.8) 10^3/ul Absolute Eos (auto) 0.1 (0-0.6) 10^3/ul Absolute Basos (auto) 0.0 (0-0.2) 10^3/ul Absolute Nucleated RBC 0.0 10^3/ul Nucleated RBC % 0.1 INR (Anticoag Therapy) 0.98 (0.82-1.09) Sodium 136 (135-145) mmol/L Potassium 3.8 (3.5-5.0) mmol/L Chloride 102 (101-111) mmol/L Carbon Dioxide 26 (22-32) mmol/L Anion Gap 8 (2-11) mmol/L BUN 56 H (6-24) mg/dL Creatinine 2.52 H (0.67-1.17) mg/dL Est GFR ( Amer) 30.9 (>60) Est GFR (Non-Af Amer) 25.5 (>60) BUN/Creatinine Ratio 22.2 H (8-20) Glucose 156 H (70-100) mg/dL Lactic Acid (0.5-2.0) mmol/L Calcium 8.4 L (8.6-10.3) mg/dL Total Bilirubin 0.60 (0.2-1.0) mg/dL AST 22 (13-39) U/L ALT 44 (7-52) U/L Alkaline Phosphatase 81 (34-104) U/L Troponin I 0.03 H* (<0.03) ng/mL C-Reactive Protein 4.47 (<8.01) mg/L B-Natriuretic Peptide (<=100) pg/mL Total Protein 5.8 L (6.4-8.9) g/dL Albumin 3.7 (3.2-5.2) g/dL Globulin 2.1 (2-4) g/dL Albumin/Globulin Ratio 1.8 (1-3) 12/11/19 12/11/19 Range/Units 08:36 08:36 WBC (3.5-10.8) 10^3/uL RBC (4.18-5.48) 10^6 /uL Hgb (14.0-18.0) g/dL Hct (42-52) % MCV (80-94) fL MCH (27-31) pg MCHC (31-36) g/dL RDW (10-15) % Plt Count (150-450) 10^3/uL MPV (7.4-10.4) fL Neut % (Auto) % Lymph % (Auto) % [place] % (Auto) % Eos % (Auto) % Baso % (Auto) % Absolute Neuts (auto) (1.5-7.7) 10^3/ul Absolute Lymphs (auto) (1.0-4.8) 10^3/ul Absolute Monos (auto) (0-0.8) 10^3/ul Absolute Eos (auto) (0-0.6) 10^3/ul Absolute Basos (auto) (0-0.2) 10^3/ul Absolute Nucleated RBC 10^3/ul Nucleated RBC % INR (Anticoag Therapy) (0.82-1.09) Sodium (135-145) mmol/L Potassium (3.5-5.0) mmol/L Chloride (101-111) mmol/L Carbon Dioxide (22-32) mmol/L Anion Gap (2-11) mmol/L BUN (6-24) mg/dL Creatinine (0.67-1.17) mg/dL Est GFR ( Amer) (>60) Est GFR (Non-Af Amer) (>60) BUN/Creatinine Ratio (8-20) Glucose (70-100) mg/dL Lactic Acid 1.2 (0.5-2.0) mmol/L Calcium (8.6-10.3) mg/dL Total Bilirubin (0.2-1.0) mg/dL AST (13-39) U/L ALT (7-52) U/L Alkaline Phosphatase (34-104) U/L Troponin I (<0.03) ng/mL C-Reactive Protein (<8.01) mg/L B-Natriuretic Peptide 624 H (<=100) pg/mL Total Protein (6.4-8.9) g/dL Albumin (3.2-5.2) g/dL Globulin (2-4) g/dL Albumin/Globulin Ratio (1-3) Result Diagrams: 12/11/19 08:36 12/11/19 08:36 Lab Statement: Any lab studies that have been ordered have been reviewed, and results considered in the medical decision making process. Course/Dx - Course Course Of Treatment: This patient is evaluated for shortness of breath. On physical examination, patient appears to be in mild respiratory distress. Sat on arrival 84%. Patient was immediately placed on 3 L and saturation hovering between 90-94%. Upon standing and movement, this dropped again to 88% on 3 L. He typically uses 3 L only at bedtime. Patient appears very edematous. 3+ BLE edema, abd with typani throughout, normal BS, rhonchorous sounds throughout. Pt sitting upright in chair. Unable to lie flat. Pt given 80mg lasix and sxs improved. Continues on 3L with sat of 94%. Discussed with Dr. Navas who will admit for pulmonary edema/CHF exacerbation. Discussed case with Dr. Quiroz as well who will consult. - Diagnoses Differential Diagnosis/HQI/PQRI: Positive: Asthma, CHF, Pulmonary Edema Provider Diagnoses: CHF exacerbation - Physician Notifications Discussed Care of Patient With: Chi Quiroz - will consult with patient Discharge ED - Sign-Out/Discharge Documenting (check all that apply): Patient Departure All imaging exams completed and their final reports reviewed: No - Discharge Plan Condition: Fair Disposition: ADMITTED TO [facility] - Billing Disposition and Condition Condition: FAIR Disposition: Admitted to [facility] - Attestation Statements Provider Attestation: I was available for consultation for this patient. I did not evaluate the patient or participate in any medical decision making or disposition decisions unless I am specifically named in the chart as having consulted on the patient. If I have consulted on the patient, please see my own ED note on the patient encounter. Yousif Elaine MD
[2019-12-11] MEDS ORDERED: Benzonatate CAP* 100 MG PO PRN (10:54)
[2019-12-11] MEDS ORDERED: ALPRAZolam TAB* 0.5 MG PO PRN (10:54)
[2019-12-11] MEDS ORDERED: Acetaminophen TAB* 325 MG PO PRN (10:54)
[2019-12-11] MEDS ORDERED: Albuterol HFA INHALER* 8 gm MDI INH PRN (10:54)
[2019-12-11] MEDS ORDERED: Nitroglycerin TAB 0.4 MG* 0.4 MG TAB SL PRN (10:54)
[2019-12-11] MEDS ORDERED: Dextrose 50% Syringe 50 ML* 25 GM/50 ML SYRINGE IV PUSH PRN (10:59)
--- NOTE | 2019-12-11 11:10 | CONSULT ---
Consultation - Reason for Consultation Reason for Consultation: CHF with history of Myeloma Ordering Provider: Cathy Mon Chief Complaint: Progressive dyspnea over the past 4 days, pedal edema On therapy for IgG Lambda Myeloma History of Present Illness: This 69 year old gentleman is followed by dr Loya for a diagnosis of IgG Lambda Myeloma. He presented in [address] showing a right 6th rib fracture. A spike of 2.5 gm/dl was noted at that time with SFLCs reported negative. Marrow 05/2015 with 17% plasma cells, He was initiated on CyBorD 10/04/2015, and underwent AutoTx 03/04/2016. New lytic lesions were noted in the humerus 04/2016 and Revlimid 10 mg Daily was started 05/2016. This was held 11/2016 secondary to progressive neuropathy. 10/2017 renal infarct, 08/2018 pneumonia, 08/2019 progressive M Fercho, 09/28/2019 Initiated Daratumamab Velcade and Dex, 2018 admission for CHF 12/08/2019 Cycle IV Daratumamab Velcade and Dex 07/2019 ECHO EF 50-55% Moderate MR Mild TR Baseline CRI Most recent labs suggest response to current treatment with spike decreasing from 0.7 to 0.5, IgG total 1070 to 740 and k/l 1.36 to 1.3 He is now admitted via the ER with progressive HINKLE , pedal edema over the past 3 days. Similar presenttaion to 09/2019 hospitalization No fevers, no sputum, denies chest pain Platelets 78 Creatinine 2.52 LA 1.2 Troponon 0.03 BNP 624 CXR with interstitial edema Improved in ER symptomatically with O2 supplementation Allergies/Medications Allergies/Adverse Reactions: Allergies Allergy/AdvReac Type Severity Reaction Status Date / Time amoxicillin AdvReac Diarrhea Verified 12/11/19 08:12 clavulanic acid AdvReac Dizziness Verified 12/11/19 08:12 History - Past Medical History Hx Blood Dyscrasias: Yes Hx Cancer: Yes Hx Cardiac Disorders: Yes Hx Circulatory Problems: Yes Hx Diabetes: No Hx Hypercholesterolemia: Yes Hx Hypertension: Yes - Social History Hx Tobacco Use: Yes Review of Systems - Review of Systems Constitutional Symptoms: Positive: Weight Gain, Weakness, Fatigue Dermatology: Positive: Normal HEENT: Positive: Normal Eyes: Positive: Normal Thyroid: Positive: Normal Pulmonary: Positive: Shortness of Breath, Exercise Intolerance, Home Oxygen Cardiology: Positive: Shortness of Breath, Swelling of Ankles, Edema Gastroenterology: Positive: Normal Genital - Urinary: Positive: Normal Hematologic/Lymphatic: Positive: Anemia - thrombocytopenia Psychiatry: Positive: Normal Physical Exam - Physical Exam Physical Examination: alert and conversant O2 via NC Scattered rhonci bilateral lungs Cardiac mild tachycardia abdomen moderate distension, nontender Extrem with 2-3+ lower extremity edema Neuro nonfocal Results - Lab Results Lab Results: 12/11/19 12/11/19 12/11/19 08:36 08:36 08:36 WBC 7.6 RBC 3.13 L Hgb 10.0 L Hct 30 L MCV 96 H MCH 32 H MCHC 34 RDW 20 H Plt Count 78 L MPV 8.1 Neut % (Auto) 72.6 Lymph % (Auto) 14.9 [place] % (Auto) 10.9 Eos % (Auto) 1.1 Baso % (Auto) 0.5 Absolute Neuts (auto) 5.5 Absolute Lymphs (auto) 1.1 Absolute Monos (auto) 0.8 Absolute Eos (auto) 0.1 Absolute Basos (auto) 0.0 Absolute Nucleated RBC 0.0 Nucleated RBC % 0.1 INR (Anticoag Therapy) 0.98 Sodium 136 Potassium 3.8 Chloride 102 Carbon Dioxide 26 Anion Gap 8 BUN 56 H Creatinine 2.52 H Est GFR ( Amer) 30.9 Est GFR (Non-Af Amer) 25.5 BUN/Creatinine Ratio 22.2 H Glucose 156 H Lactic Acid Calcium 8.4 L Total Bilirubin 0.60 AST 22 ALT 44 Alkaline Phosphatase 81 Troponin I 0.03 H* C-Reactive Protein 4.47 B-Natriuretic Peptide Total Protein 5.8 L Albumin 3.7 Globulin 2.1 Albumin/Globulin Ratio 1.8 12/11/19 12/11/19 08:36 08:36 WBC RBC Hgb Hct MCV MCH MCHC RDW Plt Count MPV Neut % (Auto) Lymph % (Auto) [place] % (Auto) Eos % (Auto) Baso % (Auto) Absolute Neuts (auto) Absolute Lymphs (auto) Absolute Monos (auto) Absolute Eos (auto) Absolute Basos (auto) Absolute Nucleated RBC Nucleated RBC % INR (Anticoag Therapy) Sodium Potassium Chloride Carbon Dioxide Anion Gap BUN Creatinine Est GFR ( Amer) Est GFR (Non-Af Amer) BUN/Creatinine Ratio Glucose Lactic Acid 1.2 Calcium Total Bilirubin AST ALT Alkaline Phosphatase Troponin I C-Reactive Protein B-Natriuretic Peptide 624 H Total Protein Albumin Globulin Albumin/Globulin Ratio - Radiology Radiology Results: Interstitial Edema on CXR Assessment and Plan Impression: IgG Lambda Myeloma on Daratumamab, Velcade and Dexamethasone Cycle IV 12/08/2019 Recurrent CHF History of CAD post stenting Prior mild reduction in EF with moderate MR Dyslipidemia Hypertension Prior resected Melanoma Post stem cell transplantation AutoTx 02/2016 Prior [place] CRI Multifactorial anemia and thrombocytopenia Mildly elevated troponin Plan: Diuresis Replace and monitor electrolytes Oxygen supplementation/ pulmonary support Trend troponin Cardiac monitoring Repeat Echocardogram for comparison 10/2018 Monitor CBC (appears at baseline) Monitor renal function (Chronic renal insufficiency) Active therapy for Myeloma on hold pending resolution of acute events Will follow with you Reviewed with patient and
[2019-12-11 12:39] LABS: Troponin I 0.03 ng/mL (<0.03)
[2019-12-11] MEDS: Insulin LISPRO* 1 UNITS UNIT SUBCUT SCH ×5 (13:05→21:46)
[2019-12-11] MEDS ORDERED: Furosemide IV* 10 MG/ML VIAL (40 MG) IV SLOW PU ONE (13:40)
[2019-12-11] MEDS: ValACYclovir (*) 1 GM TAB PO SCH ×2 (14:17→20:53)
[2019-12-11] MEDS: Heparin VIAL(*) 5000 UNITS/ML VIAL (FIVE THOUSAND) SUBCUT SCH ×2 (14:20→20:55)
[2019-12-11] MEDS: Atorvastatin* 80 MG TAB PO SCH (17:39)
[2019-12-11] MEDS: Insulin GLARGINE(*) 1 UNITS UNIT SUBCUT SCH (17:40)
[2019-12-11] MEDS: Carvedilol TAB* 25 MG PO SCH (18:05)
[2019-12-11] MEDS: Mometasone/Formoter 100/5 MDI INH SCH (19:27)
[2019-12-11] MEDS: Gabapentin CAP(*) 300 MG PO SCH (20:53)
[2019-12-11] MEDS: Triamcinolone 0.5% OINT * 15 GM TUBE TOPICAL SCH (20:53)
--- NOTE | 2019-12-11 21:08 | HP ---
CC: Aditya Weston NP at [facility]; Dr. Quiroz; Dr. Ruiz * ADMISSION HISTORY AND PHYSICAL: DATE OF ADMISSION: 12/11/19 CHIEF COMPLAINT: Shortness of breath. HISTORY OF PRESENT ILLNESS: Mr. Loaiza is a 69-year-old man with a history of heart failure with preserved ejection fraction, who presented to the emergency department with progressive dyspnea for 3 days. He reports 25-pound weight gain over the last 3 weeks. He states that the weight seems to come on him every Sunday after he has chemotherapy. He denies chest pain. He states his weight was 252 pounds on 11/10/19, it is now 280. He typically uses 3 L of oxygen by nasal cannula at nighttime due to heart failure, but he has required external aid to relieve dyspnea. 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 He does admit to orthopnea and PND. He denies any cough or sputum production. Last admission to this hospital was in September 2019. During that hospital stay , he was cared for by the Oncology Service and discharge diagnoses included acute-on- chronic diastolic heart failure and worsening renal insufficiency. He was also admitted to this hospital in July with confusion, pneumonia, and congestive heart failure. The patient does have multiple myeloma and takes chemotherapy weekly since diagnosis in 2014. Most recent echocardiogram regarding his heart failure was in July 2019 where his ejection fraction was found to be 50% to 55% with moderate mitral regurgitation. PAST MEDICAL HISTORY: Includes coronary artery disease, status post 3 stents in 2010, 2012; hypertension; hyperlipidemia; history of stroke in April of 2018; type 2 diabetes; and heart failure with preserved ejection fraction. PAST SURGICAL HISTORY: Includes melanoma excision, left forearm in the with axillary dissection. He also has carpal tunnel surgery bilaterally. MEDICATIONS ON ADMISSION: 1. Acetaminophen 500 mg p.o. q.6 hours p.r.n. pain or fever. 2. Albuterol MDI 2 puffs inhaled q.4 hours p.r.n. wheezing. 3. Alprazolam 0.5 mg p.o. b.i.d. p.r.n. anxiety. 4. Amlodipine 10 mg p.o. daily. 5. Atorvastatin 80 mg p.o. q.h.s. 6. Benzonatate 100 mg p.o. t.i.d. p.r.n. cough. 7. Budesonide/formoterol 1 inhalation b.i.d. 8. Carvedilol 25 mg p.o. b.i.d. 9. Cephalexin 500 mg p.o. t.i.d. (unclear indication). 10. Cholecalciferol 2000 units p.o. daily. 11. Clopidogrel 75 mg p.o. daily. 12. Gabapentin 300 mg p.o. b.i.d. 13. Insulin glargine 60 units subcutaneous q.p.m. 14. Insulin lispro 20 units subcutaneous q.a.c. 15. Insulin 70/30, 60 units subcutaneous q.a.m. for 1 to 3 days after taking dexamethasone and then stop. 16. Lansoprazole 15 mg p.o. daily. 17. Levothyroxine 75 mcg p.o. daily. 18. Lidocaine patch as needed. 19. Multivitamin 1 tab p.o. daily. 20. Nystatin cream as needed. 21. Triamcinolone 0.5% cream topically daily as needed. 22. Valacyclovir 1000 mg p.o. t.i.d. 23. Isosorbide mononitrate 120 mg p.o. daily. 24. Nitroglycerin 0.4 mg sublingual q.5 minutes p.r.n. chest pain. 25. Torsemide 40 mg p.o. b.i.d. ALLERGIES: AMOXICILLIN and CLAVULANIC ACID. SOCIAL HISTORY: He is retired from the [employer]. He is . His healthcare proxy is his . He has 1 child. He quit tobacco years ago and never smoked cigarettes. He smoked a pipe or cigar off and on. He denies any alcohol or drug use. FAMILY HISTORY: Notable for father who had heart disease, but of kidney failure. Father also had diabetes type 2. Mother of dementia as an elderly person. Sister has valvular heart disease. REVIEW OF SYSTEMS: The patient denies any fever, weight loss or anorexia. The patient denies any chest pain or palpitations, but does report excessive peripheral edema. The patient denies any cough or hemoptysis, but does have shortness of breath. He does have orthopnea, but denies PND. Remainder of 14- point review of systems negative other than mentioned in the HPI. PHYSICAL EXAMINATION GENERAL: He is alert, in no acute distress. VITAL SIGNS: Temperature is 36.3, pulse is 57, respirations 14 to 27, blood pressure is 141/76, oxygen saturation is 91% on 3L. HEENT: Head is normocephalic, atraumatic. Sclerae anicteric. Pupils are equal , round, and reactive to light and accommodation. Oropharynx is moist. No lesions. NECK: No JVD. No carotid bruit. No thyromegaly. LUNGS: Rales at the bases bilaterally. HEART: Regular rate and rhythm without murmurs or gallops. ABDOMEN: Obese, firm, nontender. No hepatosplenomegaly. No masses. Positive bowel sounds. EXTREMITIES: 1+ pitting edema bilaterally. He is wearing CAITLIN stockings bilaterally. NEUROLOGIC: Cranial nerves II through XII are intact. Motor strength is 5/5 throughout. Deep tendon reflexes are symmetric. He is alert and oriented x3. DIAGNOSTIC STUDIES/LAB DATA: Sodium 136, potassium 3.8, chloride 102, bicarb 26, BUN 56, creatinine 2.53, glucose 156, calcium 8.4, albumin 3.7. AST 22, ALT 44. BNP is 624. INR 0.98. Troponin 0.03, white count 7.6, hemoglobin 10, hematocrit 30%, platelets of 78. Chest x-ray shows pulmonary edema. EKG is pending. ASSESSMENT AND PLAN: A 69-year-old man presenting with exacerbation of heart failure with preserved ejection fraction. The patient will be admitted to telemetry and monitored for arrhythmias. We will assess for myocardial infarction by serial troponins and EKG. I doubt myocardial infarction, mainly appears he is volume overloaded. The patient's creatinine is basically at baseline, so he does not appear to have cardiorenal syndrome. The patient will be diuresed with high- dose IV Lasix and we may add metolazone to augment this. He can have a condom catheter to help with trips to the bathroom and help in taking an output monitoring. He will also need daily weights, of course. If his chronic kidney disease worsens with doses of Lasix, we will talk to Dr. Ruiz about other treatments. In the past, he has required a furosemide drip to begin diuresis. For his myeloma, Dr. Quiroz was consulted. He is holding chemotherapy for now. It does seem that exposure to chemotherapy including high dose corticosteroids may be exacerbating his volume overload. For his diabetes, we will continue his Lantus and Humalog, but hold on the 70/ 30. Diabetic diet, will follow as indicated. Code status is full. The patient has high risk of DVT, will have subcutaneous heparin and sequential compression device while he is here in the hospital. [id number]/[facility] #: [id number] MTDD
[2019-12-11] MEDS: oxyCODONE TAB* 5 MG TAB PO PRN (21:45)
[2019-12-12] MEDS: Heparin VIAL(*) 5000 UNITS/ML VIAL (FIVE THOUSAND) SUBCUT SCH ×3 (05:51→21:33)
[2019-12-12] MEDS: Levothyroxine TAB* 75 MCG TAB PO SCH (05:51)
[2019-12-12 06:06] LABS: ABS Eosinophils 0.1 10^3/ul (0-0.6); ABS Monocytes 0.7 10^3/ul (0-0.8); ABS Neutrophils 3.7 10^3/ul (1.5-7.7); Eosinophil % 1.5 %; Hematocrit 28 % (42-52); Hemoglobin 9.4 g/dL (14.0-18.0); Lymphocyte % 17.8 %; Mean Corpuscular HGB Conc 34 g/dL (31-36); Mean Corpuscular Hemoglobin 32 pg (27-31); Mean Corpuscular Volume 95 fL (80-94); Mean Platelet Volume 7.9 fL (7.4-10.4); Nucleated Red Blood Cells % 0.2; Platelet Count 69 10^3/uL (150-450); Red Blood Count 2.93 10^6 /uL (4.18-5.48); Red Cell Distribution Width 20 % (10-15); White Blood Count 5.5 10^3/uL (3.5-10.8)
[2019-12-12 06:20] LABS: BUN/Creatinine Ratio 23.4 (8-20); Calcium 8.2 mg/dL (8.6-10.3); EGFR African American 32.8 (>60); EGFR Non-African American 27.1 (>60); Magnesium 2.2 mg/dL (1.9-2.7); Potassium 3.8 mmol/L (3.5-5.0)
[2019-12-12] MEDS: Mometasone/Formoter 100/5 MDI INH SCH ×2 (07:47→19:25)
[2019-12-12] MEDS: Clopidogrel TAB* 75 MG PO SCH (08:40)
[2019-12-12] MEDS: Pantoprazole TAB * 40 MG TAB PO SCH (08:40)
[2019-12-12] MEDS: Cholecalciferol TAB* 1000 UNITS PO SCH (08:40)
[2019-12-12] MEDS: Isosorbide Mononitrate ER TAB* 60 MG PO SCH (08:40)
[2019-12-12] MEDS: Carvedilol TAB* 25 MG PO SCH ×2 (08:40→18:41)
[2019-12-12] MEDS: Insulin LISPRO* 1 UNITS UNIT SUBCUT SCH ×7 (08:41→21:32)
[2019-12-12] MEDS: Gabapentin CAP(*) 300 MG PO SCH ×2 (08:41→20:13)
--- NOTE | 2019-12-12 11:23 | PN ---
Progress Note - Progress Note Date of Service: 12/12/19 SOAP: Subjective: [Malick was admitted yesterday with heart failure exacerbation. He reports significant weight gain with SOB over the 24h preceeding his hospitalization. He received his chemotherapy infusion Sunday of this week which includes high dose dexamethasone and generally results in a couple pound weight gain which then resolves within a couple days. Instead of his usual pattern he continued to gain weight. He also admits to eating a fair amount of canned soup recently , which is not his usual practice. He has maintained his usual diuretic dosing and administration. Denies any missed doses. Since admission Malick feels much better. SOB has resolved and he reports the swelling in his feet has improved. Urine output is good, condom catheter in place. He developed acute onset of R groin pain overnight. CT was completed without any acute pathology noted. The pain is better this morning. Denies any testicular pain or scrotal edema. Objective: [ Vital Signs: Temp Pulse Resp BP Pulse Ox 97.9 F 65 16 124/49 97 12/12/19 07:40 12/12/19 07:48 12/12/19 08:41 12/12/19 07:40 12/12/19 07:48 Acetaminophen (Tylenol Tab*) 487.5 mg PO Q6HR PRN PRN Reason: fever Albuterol (Ventolin Hfa Inhaler*) 2 puff INH .Q4-6H PRN PRN Reason: SHORTNESS OF BREATH Alprazolam (Xanax Tab*) 0.5 mg PO BID PRN PRN Reason: ANXIETY Atorvastatin Calcium (Lipitor*) 80 mg PO 1700 [facility] Last Admin: 12/11/19 17:39 Dose: 80 mg Benzonatate (Tessalon Cap*) 100 mg PO TID PRN PRN Reason: COUGH Carvedilol (Coreg Tab*) 25 mg PO BID WITH MEALS [facility] Last Admin: 12/12/19 08:40 Dose: 25 mg Cholecalciferol (Vitamin D Tab*) 2,000 units PO DAILY [facility] Last Admin: 12/12/19 08:40 Dose: 2,000 units Clopidogrel Bisulfate (Plavix Tab*) 75 mg PO DAILY [facility] Last Admin: 12/12/19 08:40 Dose: 75 mg Dextrose (D50w Syringe 50 Ml*) 12.5 gm IV PUSH .FOR FS < 60 - SS PRN PRN Reason: FS < 60 Gabapentin (Neurontin Cap(*)) 300 mg PO BID [facility] Last Admin: 12/12/19 08:41 Dose: 300 mg Heparin Sodium (Porcine) (Heparin Vial(*)) 5,000 units SUBCUT Q8HR [facility] Last Admin: 12/12/19 05:51 Dose: 5,000 units Insulin Glargine (Lantus(*)) 60 units SUBCUT QPM [facility] Last Admin: 12/11/19 17:40 Dose: 60 units Insulin Human Lispro (Humalog*) 20 units SUBCUT AC [facility] Last Admin: 12/12/19 08:41 Dose: 20 units Insulin Human Lispro (Humalog*) 0 units SUBCUT ACHS [facility]; Protocol Last Admin: 12/12/19 08:42 Dose: 2 units Isosorbide Mononitrate (Imdur Er Tab*) 120 mg PO DAILY [facility] Last Admin: 12/12/19 08:40 Dose: 120 mg Levothyroxine Sodium (Synthroid Tab*) 75 mcg PO 0600 [facility] Last Admin: 12/12/19 05:51 Dose: 75 mcg Mometasone Furoate/Formoterol Fumar (Dulera 100/5 Mdi*) 1 puff INH BID [facility] Last Admin: 12/12/19 07:47 Dose: 1 puff Nitroglycerin (Nitroglycerin Tab 0.4 Mg*) 0.4 mg SL Q5M PRN PRN Reason: ANGINA Oxycodone HCl (Roxycodone Tab*) 5 mg PO Q6H PRN PRN Reason: PAIN - SEVERE Last Admin: 12/11/19 21:45 Dose: 5 mg Pantoprazole Sodium (Protonix Tab*) 40 mg PO DAILY [facility] Last Admin: 12/12/19 08:40 Dose: 40 mg Triamcinolone Acetonide (Triamcinolone 0.5% Oint *) 1 applic TOPICAL BID [facility] Last Admin: 12/11/19 20:53 Dose: 1 applic Valacyclovir HCl (Valtrex 1 Gm(*)) 1 gm PO BID [facility]; Protocol Last Admin: 12/11/19 20:53 Dose: 1 gm Laboratory Results - last 24 hr 12/11/19 12/11/19 12/11/19 11:52 11:52 15:54 WBC RBC Hgb Hct MCV MCH MCHC RDW Plt Count MPV Neut % (Auto) Lymph % (Auto) [place] % (Auto) Eos % (Auto) Baso % (Auto) Absolute Neuts (auto) Absolute Lymphs (auto) Absolute Monos (auto) Absolute Eos (auto) Absolute Basos (auto) Absolute Nucleated RBC Nucleated RBC % Sodium Potassium Chloride Carbon Dioxide Anion Gap BUN Creatinine Est GFR ( Amer) Est GFR (Non-Af Amer) BUN/Creatinine Ratio Glucose POC Glucose (mg/dL) 147 H Lactic Acid Calcium Magnesium Troponin I 0.03 H* 0.01 12/11/19 12/11/19 12/11/19 16:53 21:11 21:54 WBC RBC Hgb Hct MCV MCH MCHC RDW Plt Count MPV Neut % (Auto) Lymph % (Auto) [place] % (Auto) Eos % (Auto) Baso % (Auto) Absolute Neuts (auto) Absolute Lymphs (auto) Absolute Monos (auto) Absolute Eos (auto) Absolute Basos (auto) Absolute Nucleated RBC Nucleated RBC % Sodium Potassium Chloride Carbon Dioxide Anion Gap BUN Creatinine Est GFR ( Amer) Est GFR (Non-Af Amer) BUN/Creatinine Ratio Glucose POC Glucose (mg/dL) 114 H 174 H Lactic Acid 0.9 Calcium Magnesium Troponin I 12/12/19 12/12/19 12/12/19 05:36 05:36 07:32 WBC 5.5 RBC 2.93 L Hgb 9.4 L Hct 28 L MCV 95 H MCH 32 H MCHC 34 RDW 20 H Plt Count 69 L MPV 7.9 Neut % (Auto) 68.5 Lymph % (Auto) 17.8 [place] % (Auto) 12.0 Eos % (Auto) 1.5 Baso % (Auto) 0.2 Absolute Neuts (auto) 3.7 Absolute Lymphs (auto) 1.0 Absolute Monos (auto) 0.7 Absolute Eos (auto) 0.1 Absolute Basos (auto) 0.0 Absolute Nucleated RBC 0.0 Nucleated RBC % 0.2 Sodium 136 Potassium 3.8 Chloride 103 Carbon Dioxide 27 Anion Gap 6 BUN 56 H Creatinine 2.39 H Est GFR ( Amer) 32.8 Est GFR (Non-Af Amer) 27.1 BUN/Creatinine Ratio 23.4 H Glucose 166 H POC Glucose (mg/dL) 153 H Lactic Acid Calcium 8.2 L Magnesium 2.2 Troponin I Exam: Gen: relatively well appearing 69 yo male in NAD, sitting up in a chair at bedside HEENT: MMM CV: faint heart sounds Resp: decreased breath sounds at lung bases, no w/c/r Abd: soft, obese, nonTTP Ext: 2+ edema at the feet and LE Assessment: 69 yo male with multiple myeloma and chronic diastolic heart failure C4D5 daratumumab/velcade/dexamethasone. Admitted with CHF exacerbation. His has had an excellent serologic response to his myeloma therapy and plan was to start de-escalating dexamethasone which is certainly contributing to his fluid retention. He appears clinically improved after IV diuresis. Plan: [1. CHF exacerbation - acute on chronic diastolic heart failure - cont diuresis per hospitalist team 2. Multiple myeloma - C4d5 bridger/velcade/dex - will de-escalate dexamethasone with subsequent treatment - will cont with velcade on Sunday if he is discharged prior to then, can otherwise hold until discharged and resume as an outpatient Dispo: oncology team will cont to follow along, discharge plan per hospitalists
[2019-12-12] MEDS: Triamcinolone 0.5% OINT * 15 GM TUBE TOPICAL SCH ×2 (11:44→20:20)
[2019-12-12] MEDS: ValACYclovir (*) 1 GM TAB PO SCH ×2 (11:44→20:19)
[2019-12-12] MEDS ORDERED: Furosemide IV* 10 MG/ML 10 ML VIAL (100 MG) IV ONE (15:00)
--- NOTE | 2019-12-12 17:03 | PN ---
Subjective Date of Service: 12/12/19 Interval History: Patient feels breathing is better than admission. Has lost weight compared to home scale, was 280 at home few days ago, 270 lbs now. Edema in LE persists. No chest pain. Family History: Unchanged from Admission Social History: Unchanged from Admission Past Medical History: Unchanged from Admission Objective Active Medications: Acetaminophen (Tylenol Tab*) 487.5 mg PO Q6HR PRN PRN Reason: fever Albuterol (Ventolin Hfa Inhaler*) 2 puff INH .Q4-6H PRN PRN Reason: SHORTNESS OF BREATH Alprazolam (Xanax Tab*) 0.5 mg PO BID PRN PRN Reason: ANXIETY Atorvastatin Calcium (Lipitor*) 80 mg PO 1700 [facility] Last Admin: 12/11/19 17:39 Dose: 80 mg Benzonatate (Tessalon Cap*) 100 mg PO TID PRN PRN Reason: COUGH Carvedilol (Coreg Tab*) 25 mg PO BID WITH MEALS [facility] Last Admin: 12/12/19 08:40 Dose: 25 mg Cholecalciferol (Vitamin D Tab*) 2,000 units PO DAILY [facility] Last Admin: 12/12/19 08:40 Dose: 2,000 units Clopidogrel Bisulfate (Plavix Tab*) 75 mg PO DAILY [facility] Last Admin: 12/12/19 08:40 Dose: 75 mg Dextrose (D50w Syringe 50 Ml*) 12.5 gm IV PUSH .FOR FS < 60 - SS PRN PRN Reason: FS < 60 Gabapentin (Neurontin Cap(*)) 300 mg PO BID [facility] Last Admin: 12/12/19 08:41 Dose: 300 mg Heparin Sodium (Porcine) (Heparin Vial(*)) 5,000 units SUBCUT Q8HR [facility] Last Admin: 12/12/19 14:10 Dose: 5,000 units Insulin Glargine (Lantus(*)) 60 units SUBCUT QPM [facility] Last Admin: 12/11/19 17:40 Dose: 60 units Insulin Human Lispro (Humalog*) 20 units SUBCUT AC [facility] Last Admin: 12/12/19 12:39 Dose: 10 units Insulin Human Lispro (Humalog*) 0 units SUBCUT ACHS [facility]; Protocol Last Admin: 12/12/19 12:30 Dose: Not Given Isosorbide Mononitrate (Imdur Er Tab*) 120 mg PO DAILY [facility] Last Admin: 12/12/19 08:40 Dose: 120 mg Levothyroxine Sodium (Synthroid Tab*) 75 mcg PO 0600 [facility] Last Admin: 12/12/19 05:51 Dose: 75 mcg Mometasone Furoate/Formoterol Fumar (Dulera 100/5 Mdi*) 1 puff INH BID [facility] Last Admin: 12/12/19 07:47 Dose: 1 puff Nitroglycerin (Nitroglycerin Tab 0.4 Mg*) 0.4 mg SL Q5M PRN PRN Reason: ANGINA Oxycodone HCl (Roxycodone Tab*) 5 mg PO Q6H PRN PRN Reason: PAIN - SEVERE Last Admin: 12/11/19 21:45 Dose: 5 mg Pantoprazole Sodium (Protonix Tab*) 40 mg PO DAILY [facility] Last Admin: 12/12/19 08:40 Dose: 40 mg Triamcinolone Acetonide (Triamcinolone 0.5% Oint *) 1 applic TOPICAL BID [facility] Last Admin: 12/12/19 11:44 Dose: Not Given Valacyclovir HCl (Valtrex 1 Gm(*)) 1 gm PO BID [facility]; Protocol Last Admin: 12/12/19 11:44 Dose: 1 gm Vital Signs - 8 hr 12/12/19 12/12/19 11:20 11:45 Temperature 36.4 C Pulse Rate 61 Respiratory 22 18 Rate Blood Pressure 142/57 (mmHg) O2 Sat by Pulse 97 Oximetry Oxygen Devices in Use Now: Nasal Cannula Appearance: alert, no distress Ears/Nose/Mouth/Throat: Clear Oropharnyx Neck: NL Appearance and Movements; NL JVP Respiratory: Symmetrical Chest Expansion and Respiratory Effort Cardiovascular: NL Sounds; No Murmurs; No JVD, RRR, - - 3+ pitting edema to mid thigh bilat Neurological: Alert and Oriented x 3 Lines/Tubes/Other Access: Clean, Dry and Intact Peripheral IV Nutrition: Taking PO's Result Diagrams: 12/12/19 05:36 12/12/19 05:36 Additional Lab and Data: Laboratory Tests 12/11/19 12/12/19 12/12/19 21:11 05:36 07:32 Glucose 166 H POC Glucose (mg/dL) 174 H 153 H 12/12/19 11:59 Glucose POC Glucose (mg/dL) 109 H Assess/Plan/Problems-Billing Assessment: 69 year old man with active myeloma, on treatment, admitted w/ acute exacerbation of HFpEF. - Patient Problems (1) Acute on chronic diastolic (congestive) heart failure Current Visit: No Status: Acute Priority: High Code(s): I50.33 - ACUTE ON CHRONIC DIASTOLIC (CONGESTIVE) HEART FAILURE SNOMED Code(s): 448662112 Comment: -Intake and output and daily weight seem inaccurate -Patient is symptomatically better and has lost weight compared w/ home -Creatinine improved w/ diuresis. -Will need additional diuresis today. (2) Multiple myeloma not having achieved remission Current Visit: No Status: Chronic Priority: Medium Code(s): C90.00 - MULTIPLE MYELOMA NOT HAVING ACHIEVED REMISSION SNOMED Code(s): 146702605 Comment: -Hematology consult appreciated -Plan for chemo/dex Sunday if clinically stable (3) Type II diabetes mellitus Current Visit: No Status: Chronic Priority: Medium Comment: - Blood sugar in reasonable control - Continue lispro sliding scale. Status and Disposition: inpatient
[2019-12-12] MEDS: Atorvastatin* 80 MG TAB PO SCH (18:12)
[2019-12-12] MEDS: oxyCODONE TAB* 5 MG TAB PO PRN (18:41)
[2019-12-12] MEDS: Insulin GLARGINE(*) 1 UNITS UNIT SUBCUT SCH (21:31)
[2019-12-13] MEDS: Heparin VIAL(*) 5000 UNITS/ML VIAL (FIVE THOUSAND) SUBCUT SCH ×3 (05:55→21:23)
[2019-12-13] MEDS: Levothyroxine TAB* 75 MCG TAB PO SCH (05:55)
[2019-12-13 07:17] LABS: BUN/Creatinine Ratio 21.9 (8-20); Calcium 8.3 mg/dL (8.6-10.3); EGFR African American 33.1 (>60); EGFR Non-African American 27.4 (>60); Potassium 3.9 mmol/L (3.5-5.0)
[2019-12-13 07:46] LABS: TSH (Thyroid Stimulating Horm) 6.78 mcIU/mL (0.34-5.60)
[2019-12-13] MEDS ORDERED: Metolazone TAB* 5 MG PO ONE (08:22)
[2019-12-13] MEDS: ValACYclovir (*) 1 GM TAB PO SCH ×2 (08:25→21:19)
[2019-12-13] MEDS: Cholecalciferol TAB* 1000 UNITS PO SCH (08:25)
[2019-12-13] MEDS: Pantoprazole TAB * 40 MG TAB PO SCH (08:26)
[2019-12-13] MEDS: Clopidogrel TAB* 75 MG PO SCH (08:26)
[2019-12-13] MEDS: Carvedilol TAB* 25 MG PO SCH ×2 (08:26→17:36)
[2019-12-13] MEDS: Isosorbide Mononitrate ER TAB* 60 MG PO SCH (08:26)
[2019-12-13] MEDS: Gabapentin CAP(*) 300 MG PO SCH ×2 (08:26→21:18)
[2019-12-13] MEDS: Insulin LISPRO* 1 UNITS UNIT SUBCUT SCH ×7 (08:27→21:20)
[2019-12-13] MEDS: Triamcinolone 0.5% OINT * 15 GM TUBE TOPICAL SCH ×2 (08:28→21:23)
[2019-12-13] MEDS: Mometasone/Formoter 100/5 MDI INH SCH ×2 (08:46→19:51)
[2019-12-13] MEDS ORDERED: Furosemide IV* 10 MG/ML VIAL (40 MG) IV SLOW PU ONE (08:55)
--- NOTE | 2019-12-13 11:30 | PN ---
Subjective Date of Service: 12/13/19 Interval History: Patient feels he is diuresing well. Received metolazone and IV lasix this AM. Able to walk to bathroom, but using urinal mostly. No chest pain, dyspnea at rest. Had HINKLE. Generally uses O2 at night at home, requiring during day here. Family History: Unchanged from Admission Social History: Unchanged from Admission Past Medical History: Unchanged from Admission Objective Active Medications: Acetaminophen (Tylenol Tab*) 487.5 mg PO Q6HR PRN PRN Reason: fever Albuterol (Ventolin Hfa Inhaler*) 2 puff INH .Q4-6H PRN PRN Reason: SHORTNESS OF BREATH Alprazolam (Xanax Tab*) 0.5 mg PO BID PRN PRN Reason: ANXIETY Last Admin: 12/13/19 00:38 Dose: 0.5 mg Atorvastatin Calcium (Lipitor*) 80 mg PO 1700 [facility] Last Admin: 12/12/19 18:12 Dose: 80 mg Benzonatate (Tessalon Cap*) 100 mg PO TID PRN PRN Reason: COUGH Carvedilol (Coreg Tab*) 25 mg PO BID WITH MEALS [facility] Last Admin: 12/13/19 08:26 Dose: 25 mg Cholecalciferol (Vitamin D Tab*) 2,000 units PO DAILY [facility] Last Admin: 12/13/19 08:25 Dose: 2,000 units Clopidogrel Bisulfate (Plavix Tab*) 75 mg PO DAILY [facility] Last Admin: 12/13/19 08:26 Dose: 75 mg Dextrose (D50w Syringe 50 Ml*) 12.5 gm IV PUSH .FOR FS < 60 - SS PRN PRN Reason: FS < 60 Gabapentin (Neurontin Cap(*)) 300 mg PO BID [facility] Last Admin: 12/13/19 08:26 Dose: 300 mg Heparin Sodium (Porcine) (Heparin Vial(*)) 5,000 units SUBCUT Q8HR [facility] Last Admin: 12/13/19 05:55 Dose: 5,000 units Insulin Glargine (Lantus(*)) 60 units SUBCUT QPM [facility] Last Admin: 12/12/19 21:31 Dose: 60 units Insulin Human Lispro (Humalog*) 0 units SUBCUT ACHS [facility]; Protocol Last Admin: 12/13/19 08:27 Dose: 1 units Insulin Human Lispro (Humalog*) 15 units SUBCUT AC [facility] Isosorbide Mononitrate (Imdur Er Tab*) 120 mg PO DAILY [facility] Last Admin: 12/13/19 08:26 Dose: 120 mg Levothyroxine Sodium (Synthroid Tab*) 75 mcg PO 0600 [facility] Last Admin: 12/13/19 05:55 Dose: 75 mcg Mometasone Furoate/Formoterol Fumar (Dulera 100/5 Mdi*) 1 puff INH BID [facility] Last Admin: 12/13/19 08:46 Dose: Not Given Nitroglycerin (Nitroglycerin Tab 0.4 Mg*) 0.4 mg SL Q5M PRN PRN Reason: ANGINA Oxycodone HCl (Roxycodone Tab*) 5 mg PO Q6H PRN PRN Reason: PAIN - SEVERE Last Admin: 12/12/19 18:41 Dose: 5 mg Pantoprazole Sodium (Protonix Tab*) 40 mg PO DAILY [facility] Last Admin: 12/13/19 08:26 Dose: 40 mg Triamcinolone Acetonide (Triamcinolone 0.5% Oint *) 1 applic TOPICAL BID [facility] Last Admin: 12/13/19 08:28 Dose: Not Given Valacyclovir HCl (Valtrex 1 Gm(*)) 1 gm PO BID [facility]; Protocol Last Admin: 12/13/19 08:25 Dose: 1 gm Vital Signs - 8 hr 12/13/19 12/13/19 12/13/19 07:23 08:00 08:26 Temperature 36.4 C Pulse Rate 61 Respiratory 16 16 16 Rate Blood Pressure 148/69 (mmHg) O2 Sat by Pulse 97 Oximetry 12/13/19 11:10 Temperature Pulse Rate Respiratory 20 Rate Blood Pressure (mmHg) O2 Sat by Pulse Oximetry Oxygen Devices in Use Now: Nasal Cannula Appearance: alert, no distress Ears/Nose/Mouth/Throat: NL Teeth, Lips, Gums, Clear Oropharnyx Neck: NL Appearance and Movements; NL JVP Respiratory: Symmetrical Chest Expansion and Respiratory Effort Cardiovascular: NL Sounds; No Murmurs; No JVD, RRR Abdominal: NL Sounds; No Tenderness; No Distention Extremities: - - 2+ pitting edema bilat LE Neurological: Alert and Oriented x 3 Lines/Tubes/Other Access: Clean, Dry and Intact Peripheral IV Nutrition: Taking PO's Result Diagrams: 12/12/19 05:36 12/13/19 06:50 Additional Lab and Data: Laboratory Tests 12/12/19 12/12/19 12/13/19 18:06 20:09 06:50 Glucose 148 H POC Glucose (mg/dL) 302 H Glucose Meter Confirm 213 H 12/13/19 07:42 Glucose POC Glucose (mg/dL) 140 H Glucose Meter Confirm Assess/Plan/Problems-Billing Assessment: 69 year old man with active myeloma, on treatment, admitted w/ acute exacerbation of HFpEF. - Patient Problems (1) Acute on chronic diastolic (congestive) heart failure Current Visit: Yes Status: Acute Priority: High Code(s): I50.33 - ACUTE ON CHRONIC DIASTOLIC (CONGESTIVE) HEART FAILURE SNOMED Code(s): 446019001 Comment: -Intake and output and daily weight seem inaccurate, weight stable -Patient is symptomatically better and has lost weight compared w/ home -Creatinine improved w/ diuresis. -Will need additional diuresis today. (2) Multiple myeloma not having achieved remission Current Visit: Yes Status: Chronic Priority: Medium Code(s): C90.00 - MULTIPLE MYELOMA NOT HAVING ACHIEVED REMISSION SNOMED Code(s): 270631119 Comment: -Hematology consult appreciated -Plan for chemo/dex Sunday if clinically stable (3) Type II diabetes mellitus Current Visit: Yes Status: Chronic Priority: Medium Comment: - Blood sugar in reasonable control - Continue lispro sliding scale, reduced standing mealtime insulin (4) DVT prophylaxis Current Visit: Yes Status: Acute Code(s): NLX6922 - SNOMED Code(s): 619209147 Comment: SQ heparin Status and Disposition: inpatient
[2019-12-13] MEDS ORDERED: Acetaminophen TAB* 325 MG PO PRN (15:26)
[2019-12-13] MEDS: Atorvastatin* 80 MG TAB PO SCH (17:36)
[2019-12-13] MEDS: Insulin GLARGINE(*) 1 UNITS UNIT SUBCUT SCH (17:38)
[2019-12-14 05:25] LABS: ABS Eosinophils 0.1 10^3/ul (0-0.6); ABS Lymphocytes 1.3 10^3/ul (1.0-4.8); ABS Monocytes 0.7 10^3/ul (0-0.8); ABS Neutrophils 3.8 10^3/ul (1.5-7.7); Eosinophil % 1.9 %; Hematocrit 29 % (42-52); Hemoglobin 9.8 g/dL (14.0-18.0); Lymphocyte % 22.2 %; Mean Corpuscular HGB Conc 34 g/dL (31-36); Mean Corpuscular Hemoglobin 32 pg (27-31); Mean Corpuscular Volume 95 fL (80-94); Mean Platelet Volume 8.8 fL (7.4-10.4); Nucleated Red Blood Cells % 0.2; Platelet Count 87 10^3/uL (150-450); Red Blood Count 3.05 10^6 /uL (4.18-5.48); Red Cell Distribution Width 20 % (10-15); White Blood Count 5.9 10^3/uL (3.5-10.8)
[2019-12-14 05:40] LABS: BUN/Creatinine Ratio 23.1 (8-20); Calcium 8.5 mg/dL (8.6-10.3); EGFR African American 31.6 (>60); EGFR Non-African American 26.1 (>60)
[2019-12-14] MEDS: Levothyroxine TAB* 88 MCG TAB PO SCH (05:45)
[2019-12-14] MEDS: Heparin VIAL(*) 5000 UNITS/ML VIAL (FIVE THOUSAND) SUBCUT SCH ×3 (05:49→22:40)
[2019-12-14] MEDS: Mometasone/Formoter 100/5 MDI INH SCH ×2 (08:17→19:26)
[2019-12-14] MEDS: Insulin LISPRO* 1 UNITS UNIT SUBCUT SCH ×7 (08:43→20:31)
[2019-12-14] MEDS: Isosorbide Mononitrate ER TAB* 60 MG PO SCH (08:44)
[2019-12-14] MEDS: Pantoprazole TAB * 40 MG TAB PO SCH (08:45)
[2019-12-14] MEDS: Carvedilol TAB* 25 MG PO SCH ×2 (08:45→17:44)
[2019-12-14] MEDS: Gabapentin CAP(*) 300 MG PO SCH ×2 (08:45→20:26)
[2019-12-14] MEDS: ValACYclovir (*) 1 GM TAB PO SCH ×2 (08:45→20:26)
[2019-12-14] MEDS: Cholecalciferol TAB* 1000 UNITS PO SCH (08:45)
[2019-12-14] MEDS: Clopidogrel TAB* 75 MG PO SCH (08:46)
[2019-12-14] MEDS: Triamcinolone 0.5% OINT * 15 GM TUBE TOPICAL SCH ×2 (08:47→20:26)
[2019-12-14] MEDS ORDERED: Furosemide IV* 10 MG/ML 10 ML VIAL (100 MG) IV ONE ×2 (10:46→17:00)
--- NOTE | 2019-12-14 11:34 | PN ---
Progress Note - Progress Note Date of Service: 12/14/19 SOAP: Subjective: [Improving. Denies any SOB, feels like his legs are improving. No additional complaints.] Objective: [ Vital Signs: Temp Pulse Resp BP Pulse Ox 97.7 F 64 20 142/68 96 12/14/19 07:40 12/14/19 07:40 12/14/19 08:45 12/14/19 07:40 12/14/19 07:40 Acetaminophen (Tylenol Tab*) 650 mg PO Q4H PRN PRN Reason: MILD PAIN or TEMP > 100.4 Last Admin: 12/13/19 15:52 Dose: 650 mg Albuterol (Ventolin Hfa Inhaler*) 2 puff INH .Q4-6H PRN PRN Reason: SHORTNESS OF BREATH Alprazolam (Xanax Tab*) 0.5 mg PO BID PRN PRN Reason: ANXIETY Last Admin: 12/13/19 00:38 Dose: 0.5 mg Atorvastatin Calcium (Lipitor*) 80 mg PO 1700 [facility] Last Admin: 12/13/19 17:36 Dose: 80 mg Benzonatate (Tessalon Cap*) 100 mg PO TID PRN PRN Reason: COUGH Carvedilol (Coreg Tab*) 25 mg PO BID WITH MEALS [facility] Last Admin: 12/14/19 08:45 Dose: 25 mg Cholecalciferol (Vitamin D Tab*) 2,000 units PO DAILY [facility] Last Admin: 12/14/19 08:45 Dose: 2,000 units Clopidogrel Bisulfate (Plavix Tab*) 75 mg PO DAILY [facility] Last Admin: 12/14/19 08:46 Dose: 75 mg Dextrose (D50w Syringe 50 Ml*) 12.5 gm IV PUSH .FOR FS < 60 - SS PRN PRN Reason: FS < 60 Gabapentin (Neurontin Cap(*)) 300 mg PO BID [facility] Last Admin: 12/14/19 08:45 Dose: 300 mg Heparin Sodium (Porcine) (Heparin Vial(*)) 5,000 units SUBCUT Q8HR [facility] Last Admin: 12/14/19 05:49 Dose: 5,000 units Insulin Glargine (Lantus(*)) 60 units SUBCUT QPM [facility] Last Admin: 12/13/19 17:38 Dose: 60 units Insulin Human Lispro (Humalog*) 0 units SUBCUT ACHS [facility]; Protocol Last Admin: 12/14/19 08:43 Dose: 1 units Insulin Human Lispro (Humalog*) 15 units SUBCUT AC [facility] Last Admin: 12/14/19 08:44 Dose: 15 units Isosorbide Mononitrate (Imdur Er Tab*) 120 mg PO DAILY [facility] Last Admin: 12/14/19 08:44 Dose: 120 mg Levothyroxine Sodium (Synthroid Tab*) 88 mcg PO 0600 [facility] Last Admin: 12/14/19 05:45 Dose: 88 mcg Mometasone Furoate/Formoterol Fumar (Dulera 100/5 Mdi*) 1 puff INH BID [facility] Last Admin: 12/14/19 08:17 Dose: Not Given Nitroglycerin (Nitroglycerin Tab 0.4 Mg*) 0.4 mg SL Q5M PRN PRN Reason: ANGINA Oxycodone HCl (Roxycodone Tab*) 5 mg PO Q6H PRN PRN Reason: PAIN - SEVERE Last Admin: 12/12/19 18:41 Dose: 5 mg Pantoprazole Sodium (Protonix Tab*) 40 mg PO DAILY [facility] Last Admin: 12/14/19 08:45 Dose: 40 mg Triamcinolone Acetonide (Triamcinolone 0.5% Oint *) 1 applic TOPICAL BID [facility] Last Admin: 12/14/19 08:47 Dose: Not Given Valacyclovir HCl (Valtrex 1 Gm(*)) 1 gm PO BID [facility]; Protocol Last Admin: 12/14/19 08:45 Dose: 1 gm Laboratory Results - last 24 hr 12/13/19 12/13/19 12/13/19 11:16 16:12 20:50 WBC RBC Hgb Hct MCV MCH MCHC RDW Plt Count MPV Neut % (Auto) Lymph % (Auto) Irwin % (Auto) Eos % (Auto) Baso % (Auto) Absolute Neuts (auto) Absolute Lymphs (auto) Absolute Monos (auto) Absolute Eos (auto) Absolute Basos (auto) Absolute Nucleated RBC Nucleated RBC % Sodium Potassium Chloride Carbon Dioxide Anion Gap BUN Creatinine Est GFR ( Amer) Est GFR (Non-Af Amer) BUN/Creatinine Ratio Glucose POC Glucose (mg/dL) 69 L 78 148 H Calcium 12/14/19 12/14/19 12/14/19 04:57 04:57 07:23 WBC 5.9 RBC 3.05 L Hgb 9.8 L Hct 29 L MCV 95 H MCH 32 H MCHC 34 RDW 20 H Plt Count 87 L MPV 8.8 Neut % (Auto) 63.8 Lymph % (Auto) 22.2 Irwin % (Auto) 11.8 Eos % (Auto) 1.9 Baso % (Auto) 0.3 Absolute Neuts (auto) 3.8 Absolute Lymphs (auto) 1.3 Absolute Monos (auto) 0.7 Absolute Eos (auto) 0.1 Absolute Basos (auto) 0.0 Absolute Nucleated RBC 0.0 Nucleated RBC % 0.2 Sodium 135 Potassium 4.0 Chloride 99 L Carbon Dioxide 30 Anion Gap 6 BUN 57 H Creatinine 2.47 H Est GFR ( Amer) 31.6 Est GFR (Non-Af Amer) 26.1 BUN/Creatinine Ratio 23.1 H Glucose 161 H POC Glucose (mg/dL) 148 H Calcium 8.5 L Exam: Gen: relatively well appearing 69 yo male in NAD, sitting up in a chair at bedside HEENT: MMM CV: faint heart sounds Resp: CTA, no w/c/r Abd: soft, obese, nonTTP Ext: 2-3+ edema at the feet and LE Assessment: 69 yo male with multiple myeloma and chronic diastolic heart failure C4D7 daratumumab/velcade/dexamethasone. Admitted with CHF exacerbation. His has had an excellent serologic response to his myeloma therapy and plan was to start de-escalating dexamethasone which is certainly contributing to his fluid retention. He is clinically improving with IV diuresis. Plan: [1. CHF exacerbation - acute on chronic diastolic heart failure - cont diuresis per hospitalist team 2. Multiple myeloma - C4d7 bridger/velcade/dex - will de-escalate dexamethasone with subsequent treatment - will cont with velcade (no dex) on Sunday if he is discharged today, can otherwise hold until discharged and resume as an outpatient 3. Hypothyroidism - TSH 6.7 on levothyroxine which may also contribute to fluid accumulation - will check free T4, levothyroxine increased from 75 to 88mcg this hospital stay - recheck in 4-6 weeks Dispo: oncology team will cont to follow along, discharge plan per hospitalists]
[2019-12-14 12:06] LABS: Free T4 0.87 ng/dL (0.61-1.12)
[2019-12-14] MEDS ORDERED: Calcium Carbonate CHEW TAB* 500 MG (TUMS) PO PRN (14:17)
--- NOTE | 2019-12-14 15:10 | PN ---
Subjective Date of Service: 12/14/19 Interval History: This morning when I saw him, Mr. Loaiza feels much better. He walked around the halls on room air without any shortness of breath. He is anxious to go home. He thinks he is close to baseline. Then I came back to see him at lunch and he wasn't feeling well. After lunch his BG was 58. He got dextrose and crackers and his last BG was 95. He is now having diarrhea. Family History: Unchanged from Admission Social History: Unchanged from Admission Past Medical History: Unchanged from Admission Objective Active Medications: Acetaminophen (Tylenol Tab*) 650 mg PO Q4H PRN PRN Reason: MILD PAIN or TEMP > 100.4 Last Admin: 12/13/19 15:52 Dose: 650 mg Albuterol (Ventolin Hfa Inhaler*) 2 puff INH .Q4-6H PRN PRN Reason: SHORTNESS OF BREATH Alprazolam (Xanax Tab*) 0.5 mg PO BID PRN PRN Reason: ANXIETY Last Admin: 12/13/19 00:38 Dose: 0.5 mg Atorvastatin Calcium (Lipitor*) 80 mg PO 1700 [facility] Last Admin: 12/13/19 17:36 Dose: 80 mg Benzonatate (Tessalon Cap*) 100 mg PO TID PRN PRN Reason: COUGH Calcium Carbonate (Tums*) 500 mg PO Q4H PRN PRN Reason: INDIGESTION Carvedilol (Coreg Tab*) 25 mg PO BID WITH MEALS [facility] Last Admin: 12/14/19 08:45 Dose: 25 mg Cholecalciferol (Vitamin D Tab*) 2,000 units PO DAILY [facility] Last Admin: 12/14/19 08:45 Dose: 2,000 units Clopidogrel Bisulfate (Plavix Tab*) 75 mg PO DAILY [facility] Last Admin: 12/14/19 08:46 Dose: 75 mg Dextrose (D50w Syringe 50 Ml*) 12.5 gm IV PUSH .FOR FS < 60 - SS PRN PRN Reason: FS < 60 Last Admin: 12/14/19 14:45 Dose: 12.5 gm Gabapentin (Neurontin Cap(*)) 300 mg PO BID [facility] Last Admin: 12/14/19 08:45 Dose: 300 mg Heparin Sodium (Porcine) (Heparin Vial(*)) 5,000 units SUBCUT Q8HR [facility] Last Admin: 12/14/19 05:49 Dose: 5,000 units Insulin Glargine (Lantus(*)) 60 units SUBCUT QPM [facility] Last Admin: 12/13/19 17:38 Dose: 60 units Insulin Human Lispro (Humalog*) 0 units SUBCUT ACHS [facility]; Protocol Last Admin: 12/14/19 11:53 Dose: 2 units Insulin Human Lispro (Humalog*) 15 units SUBCUT AC [facility] Last Admin: 12/14/19 11:53 Dose: 15 units Isosorbide Mononitrate (Imdur Er Tab*) 120 mg PO DAILY [facility] Last Admin: 12/14/19 08:44 Dose: 120 mg Levothyroxine Sodium (Synthroid Tab*) 88 mcg PO 0600 [facility] Last Admin: 12/14/19 05:45 Dose: 88 mcg Mometasone Furoate/Formoterol Fumar (Dulera 100/5 Mdi*) 1 puff INH BID [facility] Last Admin: 12/14/19 08:17 Dose: Not Given Nitroglycerin (Nitroglycerin Tab 0.4 Mg*) 0.4 mg SL Q5M PRN PRN Reason: ANGINA Oxycodone HCl (Roxycodone Tab*) 5 mg PO Q6H PRN PRN Reason: PAIN - SEVERE Last Admin: 12/12/19 18:41 Dose: 5 mg Pantoprazole Sodium (Protonix Tab*) 40 mg PO DAILY [facility] Last Admin: 12/14/19 08:45 Dose: 40 mg Triamcinolone Acetonide (Triamcinolone 0.5% Oint *) 1 applic TOPICAL BID [facility] Last Admin: 12/14/19 08:47 Dose: Not Given Valacyclovir HCl (Valtrex 1 Gm(*)) 1 gm PO BID [facility]; Protocol Last Admin: 12/14/19 08:45 Dose: 1 gm Vital Signs - 8 hr 12/14/19 12/14/19 12/14/19 07:33 07:40 08:45 Temperature 97.7 F Pulse Rate 64 Respiratory 20 20 20 Rate Blood Pressure 142/68 (mmHg) O2 Sat by Pulse 96 Oximetry 12/14/19 12/14/19 12/14/19 11:04 11:20 11:33 Temperature 97.6 F Pulse Rate 64 Respiratory 20 20 Rate Blood Pressure 135/74 (mmHg) O2 Sat by Pulse 96 89 Oximetry Oxygen Devices in Use Now: None Appearance: alert, well appearing, breathing comfortably Eyes: No Scleral Icterus Ears/Nose/Mouth/Throat: NL Teeth, Lips, Gums Respiratory: Symmetrical Chest Expansion and Respiratory Effort, Clear to Auscultation Cardiovascular: NL Sounds; No Murmurs; No JVD, RRR Abdominal: - - obese, few echymoses, cannot appreciate a fluid wave Lymphatic: No Cervical Adenopathy Extremities: - - 3+ edema to the knees Neurological: Alert and Oriented x 3 Result Diagrams: 12/14/19 04:57 12/14/19 04:57 Additional Lab and Data: Laboratory Tests 12/12/19 12/12/19 12/13/19 18:06 20:09 06:50 Glucose 148 H POC Glucose (mg/dL) 302 H Glucose Meter Confirm 213 H 12/13/19 07:42 Glucose POC Glucose (mg/dL) 140 H Glucose Meter Confirm Assess/Plan/Problems-Billing Assessment: 69 year old man with active myeloma, on treatment, admitted w/ acute exacerbation of HFpEF. - Patient Problems (1) Hypoglycemia Current Visit: Yes Status: Acute Code(s): E16.2 - HYPOGLYCEMIA, UNSPECIFIED SNOMED Code(s): 060896728 Comment: Mr. Loaiza was preparing for discharge when he was feeling unwell, and was found to have a BG of 58. I suspect this confirms his admission of dietary nonadherence at home Received dextrose and crackers; awaiting repeat Reduce mealtime insulin dose No evidence of infection and renal function is at baseline (2) Acute CHF (congestive heart failure) Current Visit: No Status: Acute Code(s): I50.9 - HEART FAILURE, UNSPECIFIED SNOMED Code(s): 68508334 Comment: likely related to dietary/fluid nonadherence--he admits to canned soups lately, and not understanding fluid volumes he has been getting equivalent lasix dosing here to his home torsemide dosing will increase lasix dose today weight is improving but ins/outs have been marginal needs a fluid restriction. I explained goal fluid intake to him today--he understands a 2L restriction now (3) Acute respiratory failure with hypoxia Current Visit: No Status: Acute Code(s): J96.01 - ACUTE RESPIRATORY FAILURE WITH HYPOXIA SNOMED Code(s): 04925367 Comment: likely related to pulmonary edema continue IV diuresis he is back to his baseline O2 requirement (none during the day and 2L at night) (4) Multiple myeloma not having achieved remission Current Visit: Yes Status: Chronic Priority: Medium Code(s): C90.00 - MULTIPLE MYELOMA NOT HAVING ACHIEVED REMISSION SNOMED Code(s): 627171185 Comment: heme/onc following was supposed to get chemo tomorrow, will be postponed until later in the week (5) Hypothyroidism Current Visit: No Status: Chronic Code(s): E03.9 - HYPOTHYROIDISM, UNSPECIFIED SNOMED Code(s): 31312556 Comment: synthroid dose increased on this admission with the thought that uncontrolled hypothyroid may be contributing to volume overload (6) RADU (obstructive sleep apnea) Current Visit: No Status: Chronic Code(s): G47.33 - OBSTRUCTIVE SLEEP APNEA (ADULT) (PEDIATRIC) SNOMED Code(s): 04546341 Comment: can only tolerate O2 at night (7) DVT prophylaxis Current Visit: Yes Status: Acute Code(s): EWQ1386 - SNOMED Code(s): 120283412 Comment: SQ heparin Status and Disposition: inpatient; needs increased diuresis and monitoring of hypoglycemia
[2019-12-14] MEDS: Atorvastatin* 80 MG TAB PO SCH (17:44)
[2019-12-14] MEDS: Insulin GLARGINE(*) 1 UNITS UNIT SUBCUT SCH (17:44)
[2019-12-15] MEDS ORDERED: diPHENhydraMINE PO* 25 MG PO PRN (00:04)
[2019-12-15] MEDS ORDERED: Insulin LISPRO* 1 UNITS UNIT SUBCUT ONE (00:05)
[2019-12-15] MEDS ORDERED: Dextrose 50% Syringe 50 ML* 25 GM/50 ML SYRINGE IV PUSH PRN (00:05)
[2019-12-15] MEDS: Heparin VIAL(*) 5000 UNITS/ML VIAL (FIVE THOUSAND) SUBCUT SCH (05:25)
[2019-12-15] MEDS: Levothyroxine TAB* 88 MCG TAB PO SCH (05:26)
[2019-12-15] MEDS: Mometasone/Formoter 100/5 MDI INH SCH (07:20)
[2019-12-15] MEDS: Insulin LISPRO* 1 UNITS UNIT SUBCUT SCH ×4 (08:12→12:15)
[2019-12-15] MEDS: Cholecalciferol TAB* 1000 UNITS PO SCH (09:49)
[2019-12-15] MEDS: ValACYclovir (*) 1 GM TAB PO SCH (09:49)
[2019-12-15] MEDS: Isosorbide Mononitrate ER TAB* 60 MG PO SCH (09:50)
[2019-12-15] MEDS: Gabapentin CAP(*) 300 MG PO SCH (09:50)
[2019-12-15] MEDS: Clopidogrel TAB* 75 MG PO SCH (09:52)
[2019-12-15] MEDS: Pantoprazole TAB * 40 MG TAB PO SCH (09:54)
[2019-12-15] MEDS: Triamcinolone 0.5% OINT * 15 GM TUBE TOPICAL SCH (09:54)
[2019-12-15] MEDS: Carvedilol TAB* 25 MG PO SCH (09:54)
[2019-12-15 11:56] VITALS: BP 127/58
--- NOTE | 2019-12-15 12:45 | DS ---
CC: Dr. Loya; Dr. Ruiz, Nephrology; Dr. Loja, Endocrinology; Aditya Weston NP * DISCHARGE SUMMARY: DATE OF ADMISSION: 12/11/19 DATE OF DISCHARGE: 12/15/19 PRIMARY CARE PROVIDER: Aditya Weston NP. DISPOSITION ON DISCHARGE: Home. CONDITION ON DISCHARGE: Stable. DISCHARGE DIAGNOSIS: Acute diastolic congestive heart failure exacerbation. SECONDARY DIAGNOSES: 1. Multiple myeloma, currently on treatment. 2. Diabetes type 2. 3. History of congestive heart failure with preserved ejection fraction. 4. Carotid disease. 5. Dyslipidemia. 6. History of melanoma, status post excision. CONSULTATION DURING HOSPITAL STAY: Included Dr. Chi Quiroz from Oncology. MEDICATIONS AT DISCHARGE: 1. Acetaminophen on a p.r.n. basis. 2. Albuterol inhaler on a p.r.n. basis. 3. Xanax 0.5 mg b.i.d. p.r.n. 4. Norvasc 10 mg daily. 5. Lipitor 80 mg daily. 6. Tessalon Perles on a p.r.n. basis. 7. Symbicort 80/4.5 one inhalation b.i.d. 8. Coreg 25 mg b.i.d. 9. Vitamin D3 2000 units daily. 10. Plavix 75 mg daily. 11. Neurontin 300 mg b.i.d. 12. Lantus insulin 60 units at night. 13. Insulin lispro. Due to the patient's episode of hypoglycemia, the patient is recommended to restart insulin lispro at 10 units with each meal and titrate it up to 20 units with each meal 3 times a day if he continues to have hyperglycemia. 14. Prevacid 30 mg daily. 15. Lidoderm patch 5% as previously used. 16. Multivitamin 1 tablet daily. 17. Nystatin cream p.r.n. 18. Valacyclovir 1 tablet 3 times a day on as needed basis as previously taken. 19. Imdur 120 mg daily. 20. Synthroid increased to 88 mcg daily, which is a new dose. 21. Zaroxolyn 5 mg daily, take 30 minutes before the dose of torsemide which is a new medication. 22. Nitroglycerin on a p.r.n. basis. 23. Demadex 40 mg b.i.d. LABORATORY DATA AND STUDIES PERFORMED DURING THE HOSPITAL STAY: On 12/14/19, sodium of 135, potassium 4.0, chloride 99, carbon dioxide 30, BUN 57, creatinine 2.47. The patient's TSH was noted to be 6.78 on 12/13/19. Troponin on admission was 0.03. Liver function tests were unremarkable on admission. CT abdomen and pelvis obtained on 12/11/19, impression: "No CT findings to correlate with symptomatology. Bilateral pleural effusions with associated volume loss." Portable chest x-ray on admission, impression: "Findings suggestive of interstitial pulmonary edema." HOSPITALIZATION COURSE: Thad Loaiza is a 69-year-old male who is currently undergoing treatment for multiple myeloma, who presented to the hospital complaining of shortness of breath on 12/11/19. For further details of the patient's presentation, please see Dr. Navas's history and physical dictated on admission. Shortly, the patient was admitted to our hospital and treated with IV diuretics. The day prior to the patient's current discharge, he developed an episode of hypoglycemia after he received his mealtime dose of 20 units of insulin lispro. At this point, his mealtime dose of insulin was lowered. At discharge, the patient was recommended to start with lispro 10 units with each meal and then titrate it up back to 20. During his hospital stay, the patient was treated with multiple doses of IV furosemide. His weight decreased dramatically and he diuresed pretty well. By the time of discharge, he was no longer hypoxemic. We will not increase his dose of torsemide, but we will add on metolazone for the next 10 days. The patient is also planning to see Dr. Ruiz for followup during that time. As per discussion with the oncology team, the patient is going to be discharged home today and he is going to call Dr. Loya's office for a subcutaneous injection of his chemotherapy medication. Please also note that his TSH was mildly elevated and his Synthroid was increased from 75 mcg to 88 mcg. PHYSICAL EXAMINATION: At the time of discharge, blood pressure 136/57, heart rate of 65 and regular, respiratory rate 22, oxygen saturation 93% on room air, temperature 98.1. General: The patient is a very pleasant 69-year-old male who is in no acute distress. The patient is alert and oriented x3. HEENT: Head : Atraumatic, normocephalic. Eyes: Pupils equal and reactive to light and accommodation. Oropharynx clear. Mucosa moist. Neck: Supple. No JVD. No bruits bilaterally. Cardiovascular: Regular rate and rhythm. No murmurs. Respiratory: Clear to auscultation bilaterally. Abdomen: Soft, nontender. Bowel sounds present in all 4 quadrants. Extremities: There is +1 pitting pedal edema bilaterally. Pulses +2 bilaterally. No clubbing or cyanosis. Neuro Evaluation: Speech clear. Cranial nerves II through XII grossly intact. Motor strength is 5/5 bilaterally. For followup, the patient recommended to follow up with his primary care provider in 4 to 7 days. The patient is set up with a followup appointment with Dr. Loya on 12/26/19, which he is advised to keep. The patient also asked to call Dr. Ruiz's office to set up for an appointment in 1 to 2 weeks. The patient is also planning to call Dr. Loja's office, was advised of how to proceed with treatment of his diabetes when he is receiving the doses of Decadron with his chemotherapy on a monthly basis. Please note that this is a short summary of the patient's hospital stay. Please refer to further medical records for details. TIME SPENT: Approximately 40 minutes was spent on the patient's discharge. [id number]/[facility] #: [id number] CAM
== END 2019-12-15 13:00 | disposition home or self-care (01) | DRG 291 ==
LOC: ED 08:09 → MEDTELE 10:50
PROVIDERS: ADMIT Internal Medicine; ATTEND Internal Medicine
DX: I13.0 Hypertensive heart and chronic kidney disease with heart failure and stage 1 through stage 4 chronic kidney disease, or unspecified chronic kidney disease (principal); I50.33 Acute on chronic diastolic (congestive) heart failure; J96.01 Acute respiratory failure with hypoxia; C90.00 Multiple myeloma not having achieved remission; Z94.84 Stem cells transplant status; I25.10 Atherosclerotic heart disease of native coronary artery without angina pectoris; E78.00 Pure hypercholesterolemia, unspecified; E78.5 Hyperlipidemia, unspecified; J44.9 Chronic obstructive pulmonary disease, unspecified; K21.9 Gastro-esophageal reflux disease without esophagitis; M19.90 Unspecified osteoarthritis, unspecified site; E11.42 Type 2 diabetes mellitus with diabetic polyneuropathy; E11.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mellitus with diabetic chronic kidney disease; R79.89 Other specified abnormal findings of blood chemistry; D63.1 Anemia in chronic kidney disease; D69.6 Thrombocytopenia, unspecified; E03.9 Hypothyroidism, unspecified; H91.90 Unspecified hearing loss, unspecified ear; G47.33 Obstructive sleep apnea (adult) (pediatric); F40.240 Claustrophobia; E11.649 Type 2 diabetes mellitus with hypoglycemia without coma; Z95.5 Presence of coronary angioplasty implant and graft; Z88.0 Allergy status to penicillin; Z88.1 Allergy status to other antibiotic agents; Z86.73 Personal history of transient ischemic attack (TIA), and cerebral infarction without residual deficits; Z85.820 Personal history of malignant melanoma of skin; Z92.21 Personal history of antineoplastic chemotherapy; Z87.891 Personal history of nicotine dependence; Z79.51 Long term (current) use of inhaled steroids; Z79.02 Long term (current) use of antithrombotics/antiplatelets; Z79.4 Long term (current) use of insulin; Z79.899 Other long term (current) drug therapy; Z79.890 Hormone replacement therapy
CPT/HCPCS: 36415; 71046; 74176; 80048; 80053; 82947; 83605; 83735; 83880; 84439; 84443; 84484; 85025; 85610; 86140; 93005; 94640; 96374; 99223; 99232; 99284; A9270-GY; J1644; J1815; J1940

== ENCOUNTER 2020-11-13 08:22 | Inpatient (IN) ==
[2020-11-13] MEDS ORDERED: Albuterol HFA INHALER 8 gm MDI INH ONE (08:38)
[2020-11-13 09:32] LABS: ABS Eosinophils 0.1 10^3/ul (0-0.6); ABS Lymphocytes 0.9 10^3/ul (1.0-4.8); ABS Monocytes 0.8 10^3/ul (0-0.8); ABS Neutrophils 7.1 10^3/ul (1.5-7.7); Eosinophil % 0.7 %; Hematocrit 38 % (42-52); Lymphocyte % 9.9 %; Mean Corpuscular HGB Conc 34 g/dL (31-36); Mean Corpuscular Hemoglobin 33 pg (27-31); Mean Corpuscular Volume 95 fL (80-94); Mean Platelet Volume 7.4 fL (7.4-10.4); Nucleated Red Blood Cells % 0.2; Platelet Count 150 10^3/uL (150-450); Red Blood Count 3.98 10^6 /uL (4.18-5.48); Red Cell Distribution Width 16 % (10-15); White Blood Count 8.9 10^3/uL (3.5-10.8)
[2020-11-13 09:41] LABS: ALT 38 U/L (7-52); AST 17 U/L (13-39); Albumin 3.7 g/dL (3.2-5.2); Albumin/Globulin Ratio 1.5 (1-3); Alkaline Phosphatase 71 U/L (34-104); Anion Gap 9 mmol/L (2-11); BUN/Creatinine Ratio 19.8 (8-20); Blood Urea Nitrogen 53 mg/dL (6-24); C Reactive Protein 55.85 mg/L (<8.01); CO2 Carbon Dioxide 32 mmol/L (22-32); Calcium 9.6 mg/dL (8.6-10.3); Chloride 98 mmol/L (101-111); Creatine Kinase 63 U/L (10-223); EGFR African American 28.7 (>60); EGFR Non-African American 23.7 (>60); Globulin 2.4 g/dL (2-4); Glucose 78 mg/dL (70-100); Potassium 3.3 mmol/L (3.5-5.0); Sodium 139 mmol/L (135-145); Total Protein 6.1 g/dL (6.4-8.9)
[2020-11-13 09:44] LABS: CKMB ng/mL 2.2 ng/mL (0.6-6.3)
[2020-11-13 09:49] LABS: Influenza A Molecular Negative (Negative); Influenza B Molecular Negative (Negative)
[2020-11-13 09:50] LABS: Activated Partial Thrombo Time 28.9 seconds (26.0-38.0); INR 0.94 (0.82-1.09)
[2020-11-13 09:54] LABS: Troponin I 0.11 ng/mL (<0.03)
[2020-11-13] MEDS ORDERED: Diltiazem IV push/loading dose 5 MG/ML 5 ML vial (25 mg) IV SLOW PU ONE (09:55)
[2020-11-13] MEDS ORDERED: Potassium Chlor 20 meq TAB.ER PO ONE (11:58)
[2020-11-13 12:52] LABS: Urine Appearance Clear; Urine Bilirubin Negative (Negative); Urine Blood 2+ (Negative); Urine Color Yellow; Urine Glucose Negative (Negative); Urine Ketones Negative (Negative); Urine Nitrite Negative (Negative); Urine Protein 3+(>=500 mg/dL) (Negative); Urine Urobilinogen Negative (Negative)
[2020-11-13] MEDS ORDERED: Furosemide 40 mg/4 ml IV VIAL IV SLOW PU ONE (12:59)
[2020-11-13] MEDS ORDERED: Albuterol HFA INHALER 8 gm MDI INH PRN (13:01)
[2020-11-13 13:06] LABS: Urine Bacteria Absent (Absent); Urine Red Blood Cell Trace(0-2/hpf) (Absent); Urine White Blood Cell Trace(0-5/hpf) (Absent)
[2020-11-13] MEDS ORDERED: Lidocaine PATCH 5% PATCH TRANSDERM PRN (13:08)
[2020-11-13] MEDS ORDERED: HYDROcodone/ACETAMIN 5/325 mg TAB PO PRN (13:08)
[2020-11-13 13:27] LABS: Troponin I 0.12 ng/mL (<0.03)
[2020-11-13] MEDS: cefTRIAXone 1 gm/50 mL NS BAG 1 GM/50 ML BAG IVPB SCH (13:52)
[2020-11-13] MEDS: Azithromycin 500 mg/250 ml NS 500 MG/250 ML BAG IVPB SCH (14:53)
[2020-11-13] MEDS: Heparin 5000 UNITS/ML 1 mL VIAL SUBCUT SCH ×2 (15:33→22:11)
[2020-11-13] MEDS: Isosorbide Mononit ER 60mg TAB PO SCH (15:33)
[2020-11-13 16:14] LABS: Troponin I 0.13 ng/mL (<0.03)
[2020-11-13 18:36] LABS: Troponin I 0.16 ng/mL (<0.03)
[2020-11-13] MEDS: Insulin GLARGINE 100 un/ml 10 ml VIAL SUBCUT SCH (22:12)
[2020-11-13 22:20] LABS: Troponin I 0.13 ng/mL (<0.03)
[2020-11-13] MEDS: Lidocaine Patch REMOVE PATCH PATCH OFF SCH (22:21)
[2020-11-14] MEDS: Heparin 5000 UNITS/ML 1 mL VIAL SUBCUT SCH ×3 (05:13→21:46)
[2020-11-14 06:48] LABS: ABS Eosinophils 0.1 10^3/ul (0-0.6); ABS Lymphocytes 0.7 10^3/ul (1.0-4.8); ABS Monocytes 0.3 10^3/ul (0-0.8); ABS Neutrophils 4.3 10^3/ul (1.5-7.7); Eosinophil % 1.5 %; Hematocrit 31 % (42-52); Hemoglobin 10.7 g/dL (14.0-18.0); Lymphocyte % 11.9 %; Mean Corpuscular HGB Conc 35 g/dL (31-36); Mean Corpuscular Hemoglobin 33 pg (27-31); Mean Corpuscular Volume 94 fL (80-94); Mean Platelet Volume 6.8 fL (7.4-10.4); Platelet Count 120 10^3/uL (150-450); Red Blood Count 3.28 10^6 /uL (4.18-5.48); Red Cell Distribution Width 17 % (10-15); White Blood Count 5.4 10^3/uL (3.5-10.8)
[2020-11-14 07:04] LABS: BUN/Creatinine Ratio 20.3 (8-20); Calcium 8.9 mg/dL (8.6-10.3); EGFR African American 27.7 (>60); EGFR Non-African American 22.9 (>60); Potassium 4.1 mmol/L (3.5-5.0)
[2020-11-14 07:30] LABS: Magnesium 1.9 mg/dL (1.9-2.7)
[2020-11-14] MEDS: Furosemide 40 mg/4 ml IV VIAL IV SLOW PU SCH ×2 (08:00→21:45)
[2020-11-14] MEDS: Vitamin THERAPEUTIC TAB PO SCH (08:01)
[2020-11-14] MEDS: Cholecalciferol (VIT D3) 1,000 unit TAB PO SCH (08:01)
[2020-11-14] MEDS: Isosorbide Mononit ER 60mg TAB PO SCH (08:01)
[2020-11-14] MEDS: cefTRIAXone 1 gm/50 mL NS BAG 1 GM/50 ML BAG IVPB SCH (12:56)
[2020-11-14] MEDS: Azithromycin 500 mg/250 ml NS 500 MG/250 ML BAG IVPB SCH (13:27)
[2020-11-14] MEDS: Insulin GLARGINE 100 un/ml 10 ml VIAL SUBCUT SCH (21:46)
[2020-11-14] MEDS: Lidocaine Patch REMOVE PATCH PATCH OFF SCH (21:47)
[2020-11-15] MEDS: Heparin 5000 UNITS/ML 1 mL VIAL SUBCUT SCH ×2 (05:49→13:10)
[2020-11-15 08:23] LABS: ABS Eosinophils 0.1 10^3/ul (0-0.6); ABS Lymphocytes 0.6 10^3/ul (1.0-4.8); ABS Monocytes 0.4 10^3/ul (0-0.8); ABS Neutrophils 5.5 10^3/ul (1.5-7.7); Eosinophil % 1.5 %; Hematocrit 32 % (42-52); Hemoglobin 11.4 g/dL (14.0-18.0); Lymphocyte % 9.3 %; Mean Corpuscular HGB Conc 35 g/dL (31-36); Mean Corpuscular Hemoglobin 33 pg (27-31); Mean Corpuscular Volume 93 fL (80-94); Mean Platelet Volume 7.2 fL (7.4-10.4); Nucleated Red Blood Cells % 0.1; Platelet Count 134 10^3/uL (150-450); Red Cell Distribution Width 17 % (10-15); White Blood Count 6.6 10^3/uL (3.5-10.8)
[2020-11-15] MEDS: Vitamin THERAPEUTIC TAB PO SCH (08:37)
[2020-11-15] MEDS: Cholecalciferol (VIT D3) 1,000 unit TAB PO SCH (08:37)
[2020-11-15] MEDS: Furosemide 40 mg/4 ml IV VIAL IV SLOW PU SCH (08:38)
[2020-11-15] MEDS: Isosorbide Mononit ER 60mg TAB PO SCH (08:38)
[2020-11-15 08:39] LABS: BUN/Creatinine Ratio 21.1 (8-20); Calcium 9.7 mg/dL (8.6-10.3); EGFR African American 30.2 (>60); Potassium 3.8 mmol/L (3.5-5.0)
[2020-11-15 11:48] VITALS: BP 132/56
[2020-11-15] MEDS: cefTRIAXone 1 gm/50 mL NS BAG 1 GM/50 ML BAG IVPB SCH (12:26)
[2020-11-15] MEDS: Azithromycin 500 mg/250 ml NS 500 MG/250 ML BAG IVPB SCH (14:18)
== END 2020-11-15 17:30 | disposition home or self-care (01) ==
LOC: ED 08:22 → MED 14:45
PROVIDERS: ADMIT Internal Medicine; ATTEND Internal Medicine

== ENCOUNTER 2020-11-17 00:40 | Inpatient (IN) ==
[2020-11-17] MEDS ORDERED: Dextrose 50% Syringe 50 ml 25 GM/50 ML SYRINGE IV PUSH ONE (00:56)
[2020-11-17] MEDS ORDERED: Dextrose 50% Syringe 50 ml 25 GM/50 ML SYRINGE ONE (00:56)
[2020-11-17] MEDS ORDERED: Dextrose 50% Syringe 50 ml 25 GM/50 ML SYRINGE IV PUSH PRN ×2 (01:06→05:13)
[2020-11-17 01:29] LABS: ABS Eosinophils 0.1 10^3/ul (0-0.6); ABS Lymphocytes 0.4 10^3/ul (1.0-4.8); ABS Monocytes 0.4 10^3/ul (0-0.8); ABS Neutrophils 6.3 10^3/ul (1.5-7.7); Eosinophil % 1.3 %; Hematocrit 32 % (42-52); Hemoglobin 11.2 g/dL (14.0-18.0); Mean Corpuscular HGB Conc 35 g/dL (31-36); Mean Corpuscular Hemoglobin 33 pg (27-31); Mean Corpuscular Volume 92 fL (80-94); Mean Platelet Volume 7.2 fL (7.4-10.4); Platelet Count 136 10^3/uL (150-450); Red Blood Count 3.46 10^6 /uL (4.18-5.48); Red Cell Distribution Width 17 % (10-15); White Blood Count 7.3 10^3/uL (3.5-10.8)
[2020-11-17 01:46] LABS: ALT 30 U/L (7-52); AST 16 U/L (13-39); Albumin 3.2 g/dL (3.2-5.2); Albumin/Globulin Ratio 1.3 (1-3); Alkaline Phosphatase 64 U/L (34-104); Anion Gap 10 mmol/L (2-11); BUN/Creatinine Ratio 18.6 (8-20); Blood Urea Nitrogen 52 mg/dL (6-24); CO2 Carbon Dioxide 30 mmol/L (22-32); Calcium 10.1 mg/dL (8.6-10.3); Chloride 96 mmol/L (101-111); EGFR African American 27.2 (>60); EGFR Non-African American 22.5 (>60); Globulin 2.5 g/dL (2-4); Glucose 170 mg/dL (70-100); Potassium 3.7 mmol/L (3.5-5.0); Sodium 136 mmol/L (135-145); Total Protein 5.7 g/dL (6.4-8.9)
[2020-11-17 01:52] LABS: Troponin I 0.06 ng/mL (<0.03)
[2020-11-17 02:03] LABS: TSH Ultra Thyroid Stim Horm 0.48 mcIU/mL (0.34-5.60)
[2020-11-17 02:25] LABS: Alcohol, S < 10 mg/dL (<10)
[2020-11-17] MEDS ORDERED: Albuterol 2.5mg/3 ml (0.083%) NEB.SOLN INH PRN (04:27)
[2020-11-17] MEDS ORDERED: Mometasone/Formoter 100/5 MDI INH PRN (04:27)
[2020-11-17] MEDS ORDERED: Lidocaine PATCH 5% PATCH TRANSDERM PRN (05:00)
[2020-11-17] MEDS ORDERED: Ondansetron 4 mg VIAL 2 MG/ML 2 ml VIAL IV PRN (05:18)
[2020-11-17] MEDS ORDERED: cefTRIAXone 1 gm/50 mL NS BAG 1 GM/50 ML BAG IVPB SCH (06:00)
[2020-11-17 07:23] LABS: Troponin I 0.06 ng/mL (<0.03)
[2020-11-17 07:41] LABS: Glucose 119 mg/dL (70-100)
[2020-11-17] MEDS: Furosemide 40 mg/4 ml IV VIAL IV SLOW PU SCH ×2 (08:19→18:00)
[2020-11-17] MEDS: Enoxaparin 30 MG/0.3 ML SYR SUBCUT SCH (08:20)
[2020-11-17] MEDS: Isosorbide Mononit ER 60mg TAB PO SCH (09:09)
[2020-11-17] MEDS: Cholecalciferol (VIT D3) 1,000 unit TAB PO SCH (09:10)
[2020-11-17] MEDS: Insulin GLARGINE 100 un/ml 10 ml VIAL SUBCUT SCH (18:01)
[2020-11-17 18:28] LABS: Troponin I 0.06 ng/mL (<0.03)
[2020-11-17] MEDS: Lidocaine Patch REMOVE PATCH PATCH OFF SCH (20:04)
[2020-11-17] MEDS: Cefepime 2 GM in Dextrose 2 GM/50 ML BAG IV SCH (22:01)
[2020-11-17] MEDS: metroNIDAZOLE IV 500 MG/100ML 500 MG/100 ML BAG IVPB SCH (22:35)
[2020-11-18] MEDS: metroNIDAZOLE IV 500 MG/100ML 500 MG/100 ML BAG IVPB SCH ×3 (05:25→21:44)
[2020-11-18] MEDS: Enoxaparin 30 MG/0.3 ML SYR SUBCUT SCH (05:25)
[2020-11-18] MEDS: Cholecalciferol (VIT D3) 1,000 unit TAB PO SCH (08:22)
[2020-11-18] MEDS: Isosorbide Mononit ER 60mg TAB PO SCH (08:24)
[2020-11-18 10:00] LABS: ABS Basophils 0.1 10^3/ul (0-0.2); ABS Eosinophils 0.2 10^3/ul (0-0.6); ABS Lymphocytes 0.6 10^3/ul (1.0-4.8); ABS Monocytes 0.3 10^3/ul (0-0.8); ABS Neutrophils 4.8 10^3/ul (1.5-7.7); Eosinophil % 2.8 %; Hematocrit 27 % (42-52); Hemoglobin 9.8 g/dL (14.0-18.0); Lymphocyte % 10.6 %; Mean Corpuscular HGB Conc 36 g/dL (31-36); Mean Corpuscular Hemoglobin 34 pg (27-31); Mean Corpuscular Volume 93 fL (80-94); Mean Platelet Volume 7.2 fL (7.4-10.4); Nucleated Red Blood Cells % 0.1; Platelet Count 123 10^3/uL (150-450); Red Blood Count 2.92 10^6 /uL (4.18-5.48); Red Cell Distribution Width 17 % (10-15)
[2020-11-18 10:23] LABS: BUN/Creatinine Ratio 19.4 (8-20); Calcium 9.4 mg/dL (8.6-10.3); EGFR African American 24.2 (>60); Potassium 4.4 mmol/L (3.5-5.0)
[2020-11-18] MEDS: Insulin GLARGINE 100 un/ml 10 ml VIAL SUBCUT SCH (17:38)
[2020-11-18] MEDS ORDERED: NS 0.9% 500 ml BAG 500 ML IV ONE (19:29)
[2020-11-18] MEDS: Cefepime 2 GM in Dextrose 2 GM/50 ML BAG IV SCH (20:31)
[2020-11-18] MEDS: Lidocaine Patch REMOVE PATCH PATCH OFF SCH (21:45)
[2020-11-19 02:15] LABS: Urine Appearance Clear; Urine Bilirubin Negative (Negative); Urine Blood Negative (Negative); Urine Color Yellow; Urine Glucose Negative (Negative); Urine Ketones Negative (Negative); Urine Nitrite Negative (Negative); Urine Protein 2+(100 mg/dL) (Negative); Urine Specific Gravity 1.013 (1.010-1.030); Urine Urobilinogen Negative (Negative)
[2020-11-19 02:30] LABS: Urine Bacteria Absent (Absent); Urine Red Blood Cell Absent (Absent); Urine White Blood Cell Absent (Absent)
[2020-11-19] MEDS: metroNIDAZOLE IV 500 MG/100ML 500 MG/100 ML BAG IVPB SCH ×3 (05:48→23:19)
[2020-11-19] MEDS: Enoxaparin 30 MG/0.3 ML SYR SUBCUT SCH (05:49)
[2020-11-19 07:29] LABS: BUN/Creatinine Ratio 18.8 (8-20); Calcium 9.5 mg/dL (8.6-10.3); EGFR African American 26.4 (>60); EGFR Non-African American 21.8 (>60)
[2020-11-19] MEDS: Cholecalciferol (VIT D3) 1,000 unit TAB PO SCH (08:22)
[2020-11-19] MEDS: Isosorbide Mononit ER 60mg TAB PO SCH (08:22)
[2020-11-19] MEDS ORDERED: NS 0.9% 1000 ml BAG 1,000 ML IV SCH (08:30)
[2020-11-19] MEDS: Insulin GLARGINE 100 un/ml 10 ml VIAL SUBCUT SCH (17:28)
[2020-11-19] MEDS: Lidocaine Patch REMOVE PATCH PATCH OFF SCH (22:03)
[2020-11-19] MEDS: Cefepime 2 GM in Dextrose 2 GM/50 ML BAG IV SCH (22:25)
[2020-11-20] MEDS: metroNIDAZOLE IV 500 MG/100ML 500 MG/100 ML BAG IVPB SCH ×3 (05:58→14:37)
[2020-11-20] MEDS: Enoxaparin 30 MG/0.3 ML SYR SUBCUT SCH (05:58)
[2020-11-20] MEDS: Cholecalciferol (VIT D3) 1,000 unit TAB PO SCH (08:30)
[2020-11-20] MEDS: Isosorbide Mononit ER 60mg TAB PO SCH (08:30)
[2020-11-20 13:13] LABS: Urine Appearance Cloudy; Urine Bilirubin Negative (Negative); Urine Blood 1+ (Negative); Urine Color Yellow; Urine Glucose 1+(50 mg/dL) (Negative); Urine Ketones Negative (Negative); Urine Nitrite Negative (Negative); Urine Protein 2+(100 mg/dL) (Negative); Urine Specific Gravity 1.016 (1.010-1.030); Urine Urobilinogen Negative (Negative)
[2020-11-20 13:26] LABS: Urine Bacteria Absent (Absent); Urine Red Blood Cell Trace(0-2/hpf) (Absent); Urine Squamous Epithelial Cell Present (Absent); Urine White Blood Cell Trace(0-5/hpf) (Absent)
[2020-11-20 15:55] VITALS: BP 144/57
[2020-11-20] MEDS: Insulin GLARGINE 100 un/ml 10 ml VIAL SUBCUT SCH (17:23)
== END 2020-11-20 18:05 | disposition home or self-care (01) | DRG 637 ==
LOC: ED 00:40 → MED 05:22
PROVIDERS: ADMIT Internal Medicine; ATTEND Internal Medicine

== ENCOUNTER 2021-03-01 10:09 | Inpatient (IN) ==
[2021-03-01 10:42] LABS: ABS Basophils 0.1 10^3/ul (0-0.2); ABS Eosinophils 0.2 10^3/ul (0-0.6); ABS Lymphocytes 1.6 10^3/ul (1.0-4.8); ABS Monocytes 0.8 10^3/ul (0-0.8); Eosinophil % 2.4 %; Hematocrit 34 % (42-52); Hemoglobin 11.7 g/dL (14.0-18.0); Lymphocyte % 16.8 %; Mean Corpuscular HGB Conc 35 g/dL (31-36); Mean Corpuscular Hemoglobin 34 pg (27-31); Mean Corpuscular Volume 98 fL (80-94); Mean Platelet Volume 7.6 fL (7.4-10.4); Platelet Count 147 10^3/uL (150-450); Red Blood Count 3.47 10^6 /uL (4.18-5.48); Red Cell Distribution Width 15 % (10-15); White Blood Count 9.8 10^3/uL (3.5-10.8)
[2021-03-01 10:49] LABS: INR 0.95 (0.82-1.09)
[2021-03-01 11:01] LABS: Chloride 101 mmol/L (101-111); Potassium 4.2 mmol/L (3.5-5.0); Sodium 139 mmol/L (135-145)
[2021-03-01 11:12] LABS: Troponin I 0.15 ng/mL (<0.03)
[2021-03-01 11:26] LABS: ALT 17 U/L (7-52); AST 13 U/L (13-39); Albumin 3.6 g/dL (3.2-5.2); Albumin/Globulin Ratio 1.7 (1-3); Alkaline Phosphatase 86 U/L (34-104); Anion Gap 8 mmol/L (2-11); Blood Urea Nitrogen 34 mg/dL (6-24); CO2 Carbon Dioxide 30 mmol/L (22-32); Calcium 8.7 mg/dL (8.6-10.3); EGFR African American 30.3 (>60); EGFR Non-African American 25.1 (>60); Globulin 2.1 g/dL (2-4); Glucose 172 mg/dL (70-100); Total Protein 5.7 g/dL (6.4-8.9)
[2021-03-01] MEDS ORDERED: NS 0.9% 1000 ml BAG 1,000 ML IV ONE (11:49)
[2021-03-01] MEDS ORDERED: Al Hydrox/Mg Hydrox/Simet LIQ 30 ML UDC PO ONE (11:49)
[2021-03-01 13:02] LABS: Activated Partial Thrombo Time 30.5 seconds (26.0-38.0)
[2021-03-01 14:08] LABS: Troponin I 0.16 ng/mL (<0.03)
[2021-03-01 15:12] LABS: Lipase 28 U/L (11.0-82.0)
[2021-03-01] MEDS ORDERED: Dextrose 50% Syringe 50 ml 25 GM/50 ML SYRINGE IV PUSH PRN (15:42)
[2021-03-01 16:02] LABS: Hepatitis C Antibody Negative (Negative)
[2021-03-01] MEDS ORDERED: Insulin GLARGINE 100 un/ml 10 ml VIAL SUBCUT SCH ×2 (18:00→21:00)
[2021-03-01 18:08] LABS: TSH Ultra Thyroid Stim Horm 1.56 mcIU/mL (0.34-5.60)
[2021-03-01 18:40] LABS: ABS Basophils 0.1 10^3/ul (0-0.2); ABS Eosinophils 0.2 10^3/ul (0-0.6); ABS Lymphocytes 1.7 10^3/ul (1.0-4.8); ABS Monocytes 0.7 10^3/ul (0-0.8); ABS Neutrophils 5.5 10^3/ul (1.5-7.7); Eosinophil % 2.5 %; Hematocrit 34 % (42-52); Hemoglobin 11.6 g/dL (14.0-18.0); Lymphocyte % 20.9 %; Mean Corpuscular HGB Conc 35 g/dL (31-36); Mean Corpuscular Hemoglobin 34 pg (27-31); Mean Corpuscular Volume 98 fL (80-94); Mean Platelet Volume 7.2 fL (7.4-10.4); Platelet Count 146 10^3/uL (150-450); Red Blood Count 3.45 10^6 /uL (4.18-5.48); Red Cell Distribution Width 16 % (10-15); White Blood Count 8.2 10^3/uL (3.5-10.8)
[2021-03-01] MEDS ORDERED: Albuterol HFA INHALER 8 gm MDI INH PRN (18:49)
[2021-03-01] MEDS: Heparin DRIP 25,000 UNITS BAG 25,000 UNITS/500 ML BAG IV SCH (18:58)
[2021-03-01] MEDS: Heparin 5000 UNITS/ML 1 mL VIAL IV SCH (18:58)
[2021-03-01 19:17] LABS: Blood Urea Nitrogen 32 mg/dL (6-24); EGFR African American 31.8 (>60); EGFR Non-African American 26.3 (>60)
[2021-03-01 19:23] LABS: Troponin I 0.16 ng/mL (<0.03)
[2021-03-01] MEDS: Mometasone/Formoter 200/5 MDI INH SCH (20:05)
[2021-03-01] MEDS ORDERED: Nitroglycerin 0.1 mg/hr PATCH (2.5 mg) TRANSDERM PRN (23:39)
[2021-03-01 23:46] LABS: Troponin I 0.14 ng/mL (<0.03)
[2021-03-02] MEDS: Heparin 5000 UNITS/ML 1 mL VIAL IV SCH ×2 (02:28→15:01)
[2021-03-02 06:22] LABS: ABS Basophils 0.1 10^3/ul (0-0.2); ABS Eosinophils 0.2 10^3/ul (0-0.6); ABS Lymphocytes 1.6 10^3/ul (1.0-4.8); ABS Monocytes 0.5 10^3/ul (0-0.8); ABS Neutrophils 5.4 10^3/ul (1.5-7.7); Eosinophil % 2.3 %; Hematocrit 35 % (42-52); Hemoglobin 11.9 g/dL (14.0-18.0); Lymphocyte % 20.7 %; Mean Corpuscular HGB Conc 34 g/dL (31-36); Mean Corpuscular Hemoglobin 34 pg (27-31); Mean Corpuscular Volume 98 fL (80-94); Mean Platelet Volume 7.9 fL (7.4-10.4); Platelet Count 150 10^3/uL (150-450); Red Blood Count 3.55 10^6 /uL (4.18-5.48); Red Cell Distribution Width 16 % (10-15); White Blood Count 7.7 10^3/uL (3.5-10.8)
[2021-03-02 06:53] LABS: Calcium 8.8 mg/dL (8.6-10.3); EGFR African American 30.9 (>60); EGFR Non-African American 25.5 (>60); HDL Cholesterol 29.3 mg/dL; Potassium 3.9 mmol/L (3.5-5.0)
[2021-03-02] MEDS ORDERED: Regadenoson 0.4 MG/5 ML SYRINGE ONE (08:09)
[2021-03-02] MEDS ORDERED: Aminophylline 25 MG/ML VIAL ONE (08:09)
[2021-03-02] MEDS ORDERED: Perflutren Lipid Microsphere 3 ML VIAL ONE (09:39)
[2021-03-02] MEDS: Mometasone/Formoter 200/5 MDI INH SCH ×2 (09:43→20:32)
[2021-03-02] MEDS: Isosorbide Mononit ER 60mg TAB PO SCH (11:01)
[2021-03-02] MEDS ORDERED: Nitro Patch/OINT Remove PATCH TOPICAL PRN (12:00)
[2021-03-02] MEDS: Heparin DRIP 25,000 UNITS BAG 25,000 UNITS/500 ML BAG IV SCH (15:02)
[2021-03-02] MEDS ORDERED: Insulin GLARGINE 100 un/ml 10 ml VIAL SUBCUT SCH (21:00)
[2021-03-03 05:43] LABS: ABS Eosinophils 0.2 10^3/ul (0-0.6); ABS Lymphocytes 1.5 10^3/ul (1.0-4.8); ABS Monocytes 0.6 10^3/ul (0-0.8); ABS Neutrophils 4.4 10^3/ul (1.5-7.7); Eosinophil % 2.5 %; Hematocrit 32 % (42-52); Hemoglobin 10.7 g/dL (14.0-18.0); Lymphocyte % 22.1 %; Mean Corpuscular HGB Conc 34 g/dL (31-36); Mean Corpuscular Hemoglobin 34 pg (27-31); Mean Corpuscular Volume 98 fL (80-94); Mean Platelet Volume 7.4 fL (7.4-10.4); Platelet Count 151 10^3/uL (150-450); Red Blood Count 3.21 10^6 /uL (4.18-5.48); Red Cell Distribution Width 16 % (10-15); White Blood Count 6.6 10^3/uL (3.5-10.8)
[2021-03-03 05:57] LABS: Activated Partial Thrombo Time 71.9 seconds (26.0-38.0)
[2021-03-03 06:04] LABS: Calcium 8.5 mg/dL (8.6-10.3); EGFR African American 30.2 (>60); Potassium 3.9 mmol/L (3.5-5.0)
[2021-03-03] MEDS ORDERED: NS 0.9% 1000 ml BAG 1,000 ML IV SCH (06:30)
[2021-03-03] MEDS: Mometasone/Formoter 200/5 MDI INH SCH (08:10)
[2021-03-03] MEDS ORDERED: VERAPAMIL 2.5 MG/ML 2 ML VIAL ** 5 mg/2 ml ONE (08:47)
[2021-03-03] MEDS ORDERED: Midazolam 5 mg/5 ml VIAL 1 mg/ml 5 ml VIAL (5 mg) ONE (08:47)
[2021-03-03] MEDS ORDERED: fentaNYL 100 mcg/2 ml 50 MCG/ML VIAL ONE (08:47)
[2021-03-03] MEDS ORDERED: Heparin 1,000 UNIT/ML 10 ml (10,000 UNITS) CATHLAB/DIALYSIS ONE ×2 (08:47→11:43)
[2021-03-03] MEDS ORDERED: Heparin 2 UNITS/ML 1000 mls 2,000 ML IV ONE (08:48)
[2021-03-03] MEDS ORDERED: nitroGLYCERIN DRIP 25,000 MCG/250 ML BTL ONE (08:48)
[2021-03-03] MEDS ORDERED: Lidocaine 1% VIAL 10 MG/ML VIAL ONE (08:48)
[2021-03-03] MEDS ORDERED: Iodixanol 320 (CONTRAST) 100 ML SDV ONE (08:48)
[2021-03-03 08:56] LABS: INR 0.99 (0.82-1.09)
[2021-03-03] MEDS ORDERED: Heparin DRIP 25,000 UNITS BAG 0 UNITS/0 ML BAG ONE (09:52)
[2021-03-03] MEDS ORDERED: Heparin DRIP 25,000 UNITS BAG 25,000 UNITS/500 ML BAG ONE (11:28)
[2021-03-03] MEDS ORDERED: Lorazepam PYXIS KEY PRN (11:36)
[2021-03-03] MEDS ORDERED: LORazepam 2 mg VIAL 1 ml IV PUSH ONE (11:36)
[2021-03-03] MEDS: Heparin DRIP 25,000 UNITS BAG 25,000 UNITS/500 ML BAG IV SCH (11:45)
[2021-03-03] MEDS: Heparin 5000 UNITS/ML 1 mL VIAL IV SCH (11:46)
[2021-03-03] MEDS: Isosorbide Mononit ER 60mg TAB PO SCH (12:31)
[2021-03-03 13:45] VITALS: BP 124/66
== END 2021-03-03 16:28 | disposition short-term general hospital (02) | DRG 287 ==
LOC: ED 10:09 → MEDTELE 15:33
PROVIDERS: ADMIT Internal Medicine; ATTEND Internal Medicine

== ENCOUNTER 2021-04-11 10:17 | Inpatient (IN) ==
[2021-04-11 11:12] LABS: ABS Basophils 0.1 10^3/ul (0-0.2); ABS Eosinophils 0.3 10^3/ul (0-0.6); ABS Lymphocytes 1.7 10^3/ul (1.0-4.8); ABS Monocytes 0.7 10^3/ul (0-0.8); ABS Neutrophils 6.7 10^3/ul (1.5-7.7); Eosinophil % 3.4 %; Hematocrit 34 % (42-52); Hemoglobin 11.2 g/dL (14.0-18.0); Lymphocyte % 17.7 %; Mean Corpuscular HGB Conc 34 g/dL (31-36); Mean Corpuscular Hemoglobin 32 pg (27-31); Mean Corpuscular Volume 96 fL (80-94); Platelet Count 207 10^3/uL (150-450); Red Blood Count 3.51 10^6 /uL (4.18-5.48); Red Cell Distribution Width 16 % (10-15); White Blood Count 9.5 10^3/uL (3.5-10.8)
[2021-04-11 11:34] LABS: ALT 11 U/L (7-52); AST 13 U/L (13-39); Albumin 3.9 g/dL (3.2-5.2); Albumin/Globulin Ratio 1.8 (1-3); Alkaline Phosphatase 83 U/L (35-149); Anion Gap 8 mmol/L (2-11); CO2 Carbon Dioxide 28 mmol/L (22-32); Calcium 9.2 mg/dL (8.6-10.3); Chloride 101 mmol/L (101-111); EGFR African American 28.4 (>60); EGFR Non-African American 23.5 (>60); Globulin 2.2 g/dL (2-4); Glucose 176 mg/dL (70-100); Potassium 3.9 mmol/L (3.5-5.0); Sodium 137 mmol/L (135-145); Total Protein 6.1 g/dL (6.4-8.9)
[2021-04-11 11:36] LABS: Troponin I 0.35 ng/mL (<0.03)
[2021-04-11] MEDS ORDERED: Furosemide 40 mg/4 ml IV VIAL IV ONE (11:47)
[2021-04-11] MEDS ORDERED: Furosemide 40 mg/4 ml IV VIAL IV SLOW PU ONE (11:59)
[2021-04-11 12:23] LABS: Blood Urea Nitrogen 38 mg/dL (6-24)
[2021-04-11 13:07] LABS: Troponin I 0.35 ng/mL (<0.03)
[2021-04-11] MEDS ORDERED: Nitroglycerin 0.6 mg TAB SL ONE (13:30)
[2021-04-11] MEDS ORDERED: Albuterol HFA INHALER 8 gm MDI INH PRN (14:07)
[2021-04-11 17:46] LABS: Troponin I 0.42 ng/mL (<0.03)
[2021-04-11] MEDS: Heparin 5000 UNITS/ML 1 mL VIAL SUBCUT SCH ×2 (17:56→22:04)
[2021-04-11] MEDS: Mometasone/Formoter 200/5 MDI INH SCH (19:09)
[2021-04-11 20:23] LABS: Troponin I 0.41 ng/mL (<0.03)
[2021-04-11] MEDS ORDERED: Isosorbide Mononit ER 60mg TAB PO SCH (21:00)
[2021-04-11] MEDS ORDERED: Insulin GLARGINE 100 un/ml 10 ml VIAL SUBCUT SCH ×2 (21:00)
[2021-04-11 22:49] LABS: Troponin I 0.38 ng/mL (<0.03)
[2021-04-12] MEDS ORDERED: Nitroglycerin 0.6 mg TAB SL ONE (00:43)
[2021-04-12] MEDS ORDERED: Heparin DRIP 25,000 UNITS BAG 25,000 UNITS/500 ML BAG IV SCH (00:45)
[2021-04-12] MEDS: Heparin 5000 UNITS/ML 1 mL VIAL IV SCH ×2 (01:09→14:03)
[2021-04-12 01:17] LABS: ABS Basophils 0.1 10^3/ul (0-0.2); ABS Eosinophils 0.4 10^3/ul (0-0.6); ABS Lymphocytes 1.5 10^3/ul (1.0-4.8); ABS Monocytes 0.7 10^3/ul (0-0.8); ABS Neutrophils 7.6 10^3/ul (1.5-7.7); Eosinophil % 3.7 %; Hematocrit 31 % (42-52); Hemoglobin 10.7 g/dL (14.0-18.0); Lymphocyte % 14.7 %; Mean Corpuscular HGB Conc 35 g/dL (31-36); Mean Corpuscular Hemoglobin 33 pg (27-31); Mean Corpuscular Volume 95 fL (80-94); Platelet Count 209 10^3/uL (150-450); Red Blood Count 3.26 10^6 /uL (4.18-5.48); Red Cell Distribution Width 16 % (10-15); White Blood Count 10.3 10^3/uL (3.5-10.8)
[2021-04-12 01:37] LABS: EGFR African American 26.8 (>60); EGFR Non-African American 22.1 (>60)
[2021-04-12 01:47] LABS: Troponin I 0.34 ng/mL (<0.03)
[2021-04-12] MEDS ORDERED: nitroGLYCERIN DRIP 25,000 MCG/250 ML BTL IV SCH (02:00)
[2021-04-12] MEDS: Heparin 5000 UNITS/ML 1 mL VIAL SUBCUT SCH (04:33)
[2021-04-12 04:34] LABS: ABS Basophils 0.1 10^3/ul (0-0.2); ABS Eosinophils 0.4 10^3/ul (0-0.6); ABS Lymphocytes 1.9 10^3/ul (1.0-4.8); ABS Monocytes 0.8 10^3/ul (0-0.8); Eosinophil % 4.4 %; Hematocrit 29 % (42-52); Hemoglobin 10.3 g/dL (14.0-18.0); Lymphocyte % 18.2 %; Mean Corpuscular HGB Conc 35 g/dL (31-36); Mean Corpuscular Hemoglobin 33 pg (27-31); Mean Corpuscular Volume 94 fL (80-94); Mean Platelet Volume 7.5 fL (7.4-10.4); Platelet Count 187 10^3/uL (150-450); Red Blood Count 3.08 10^6 /uL (4.18-5.48); Red Cell Distribution Width 16 % (10-15); White Blood Count 10.2 10^3/uL (3.5-10.8)
[2021-04-12 04:49] LABS: Calcium 8.7 mg/dL (8.6-10.3); EGFR African American 27.6 (>60); EGFR Non-African American 22.8 (>60); Magnesium 2.4 mg/dL (1.9-2.7); Potassium 3.8 mmol/L (3.5-5.0)
[2021-04-12 04:55] LABS: Troponin I 0.31 ng/mL (<0.03)
[2021-04-12] MEDS: Mometasone/Formoter 200/5 MDI INH SCH ×2 (07:15→19:31)
[2021-04-12] MEDS ORDERED: Furosemide 40 mg/4 ml IV VIAL IV ONE (08:00)
[2021-04-12] MEDS ORDERED: Aspirin EC 81 mg TAB.EC (enteric coated) PO SCH (09:00)
[2021-04-12] MEDS ORDERED: Isosorbide Mononit ER 60mg TAB PO SCH (09:00)
[2021-04-12] MEDS ORDERED: Dextrose 50% Syringe 50 ml 25 GM/50 ML SYRINGE IV PUSH PRN (11:56)
[2021-04-12] MEDS ORDERED: Perflutren Lipid Microsphere 3 ML VIAL ONE (14:38)
[2021-04-12 21:52] VITALS: BP 131/60
== END 2021-04-12 19:06 | disposition short-term general hospital (02) ==
LOC: ED 10:17 → MEDTELE 14:00 → ICU 04-12 01:08
PROVIDERS: ADMIT Hospitalist; ATTEND Internal Medicine

== ENCOUNTER 2021-05-04 03:20 | Inpatient (IN) ==
[2021-05-04] MEDS ORDERED: Morphine 10 MG/ML VIAL (1 ml) IV ONE (03:54)
[2021-05-04] MEDS ORDERED: Droperidol 5 MG/2 ML 2 ML VIAL IV ONE (03:54)
[2021-05-04] MEDS ORDERED: NS 0.9% 1000 ml BAG 1,000 ML IV ONE ×2 (03:54→09:02)
[2021-05-04 04:40] LABS: ABS Basophils 0.1 10^3/ul (0-0.2); ABS Eosinophils 0.4 10^3/ul (0-0.6); ABS Lymphocytes 1.7 10^3/ul (1.0-4.8); ABS Monocytes 1.3 10^3/ul (0-0.8); Eosinophil % 2.3 %; Hematocrit 36 % (42-52); Hemoglobin 12.5 g/dL (14.0-18.0); Lymphocyte % 9.7 %; Mean Corpuscular HGB Conc 35 g/dL (31-36); Mean Corpuscular Hemoglobin 31 pg (27-31); Mean Corpuscular Volume 88 fL (80-94); Mean Platelet Volume 7.7 fL (7.4-10.4); Platelet Count 311 10^3/uL (150-450); Red Blood Count 4.09 10^6 /uL (4.18-5.48); Red Cell Distribution Width 17 % (10-15); White Blood Count 17.5 10^3/uL (3.5-10.8)
[2021-05-04 04:57] LABS: ALT 7 U/L (7-52); Albumin/Globulin Ratio 1.3 (1-3); Alkaline Phosphatase 75 U/L (35-149); Blood Urea Nitrogen 102 mg/dL (6-24); CO2 Carbon Dioxide 35 mmol/L (22-32); Calcium 9.6 mg/dL (8.6-10.3); Chloride 78 mmol/L (101-111); EGFR African American 14.1 (>60); EGFR Non-African American 11.6 (>60); Glucose 176 mg/dL (70-100); Lipase 86 U/L (11.0-82.0); Sodium 125 mmol/L (135-145)
[2021-05-04 05:00] LABS: Anion Gap 12 mmol/L (2-11)
[2021-05-04 05:33] LABS: Potassium Redraw 3.4 mmol/L (3.5-5.0)
[2021-05-04] MEDS ORDERED: Al Hydrox/Mg Hydrox/Simet LIQ 30 ML UDC PO ONE (08:18)
[2021-05-04 09:29] LABS: Urine Appearance Clear; Urine Bilirubin Negative (Negative); Urine Blood Negative (Negative); Urine Color Yellow; Urine Glucose Negative (Negative); Urine Ketones Negative (Negative); Urine Nitrite Negative (Negative); Urine Protein 2+(100 mg/dL) (Negative); Urine Urobilinogen Negative (Negative)
[2021-05-04 09:45] LABS: Urine Bacteria Absent (Absent); Urine Red Blood Cell Trace(0-2/hpf) (Absent); Urine Squamous Epithelial Cell Present (Absent); Urine White Blood Cell Trace(0-5/hpf) (Absent)
[2021-05-04] MEDS ORDERED: Morphine 4 MG/ML VIAL (1 ml) IV ONE (09:51)
[2021-05-04 10:18] LABS: Troponin I 0.04 ng/mL (<0.03)
[2021-05-04] MEDS ORDERED: NS 0.9% 1000 ml BAG 1,000 ML IV SCH (10:30)
[2021-05-04] MEDS ORDERED: Dextrose 50% Syringe 50 ml 25 GM/50 ML SYRINGE IV PUSH PRN (10:42)
[2021-05-04] MEDS ORDERED: Mometasone/Formoter 200/5 MDI INH PRN (10:42)
[2021-05-04] MEDS ORDERED: Albuterol HFA INHALER 8 gm MDI INH PRN (10:42)
[2021-05-04] MEDS: Heparin 5000 UNITS/ML 1 mL VIAL SUBCUT SCH ×2 (14:10→21:11)
[2021-05-04] MEDS ORDERED: cefTRIAXone 1 gm/50 mL NS BAG 1 GM/50 ML BAG IVPB SCH (16:00)
[2021-05-04] MEDS ORDERED: Insulin GLARGINE 100 un/ml 10 ml VIAL SUBCUT SCH ×2 (18:00)
[2021-05-04] MEDS: metroNIDAZOLE IV 500 MG/100ML 500 MG/100 ML BAG IVPB SCH (18:17)
[2021-05-05 05:23] LABS: Hematocrit 34 % (42-52); Hemoglobin 11.6 g/dL (14.0-18.0); Mean Corpuscular HGB Conc 34 g/dL (31-36); Mean Corpuscular Hemoglobin 31 pg (27-31); Mean Corpuscular Volume 89 fL (80-94); Mean Platelet Volume 7.4 fL (7.4-10.4); Platelet Count 260 10^3/uL (150-450); Red Blood Count 3.78 10^6 /uL (4.18-5.48); Red Cell Distribution Width 17 % (10-15); White Blood Count 25.9 10^3/uL (3.5-10.8)
[2021-05-05 05:30] LABS: ABS Lymphocytes 0.4 10^3/ul (1.0-4.8); ABS Monocytes 1.3 10^3/ul (0-0.8); ABS Neutrophils 24.2 10^3/ul (1.5-7.7); Eosinophil % 0.1 %; Lymphocyte % 1.5 %
[2021-05-05 05:35] LABS: C Reactive Protein 220.54 mg/L (<8.01); Calcium 8.8 mg/dL (8.6-10.3); EGFR African American 16.1 (>60); EGFR Non-African American 13.3 (>60); Potassium 3.2 mmol/L (3.5-5.0)
[2021-05-05] MEDS: metroNIDAZOLE IV 500 MG/100ML 500 MG/100 ML BAG IVPB SCH (05:36)
[2021-05-05] MEDS: Heparin 5000 UNITS/ML 1 mL VIAL SUBCUT SCH ×3 (05:36→21:59)
[2021-05-05] MEDS ORDERED: Morphine 2 MG/ML SYRINGE IV ONE (06:26)
[2021-05-05] MEDS ORDERED: HYDROmorphone 1 MG/1 ML SYRINGE ONE (07:43)
[2021-05-05] MEDS ORDERED: Potassium Chlor 20 meq TAB.ER PO ONE (08:30)
[2021-05-05] MEDS: Vitamin THERAPEUTIC TAB PO SCH (08:42)
[2021-05-05] MEDS: Aspirin EC 81 mg TAB.EC (enteric coated) PO SCH (08:43)
[2021-05-05] MEDS ORDERED: NS 0.9% 1000 ml BAG 1,000 ML IV SCH (08:45)
[2021-05-05] MEDS ORDERED: Piperacillin/Tazobac ADVAN 3.375 GM in NS 0.9% 100 ml BAG 100 ML IV ONE (10:51)
[2021-05-05] MEDS ORDERED: Zosyn per Pharmacy NOTE FOLLOW UP SCH (11:00)
[2021-05-05] MEDS ORDERED: Linezolid 600 MG IVPREMIX(*) 600 MG/300 ML BAG IVPB SCH (11:30)
[2021-05-05] MEDS: HYDROmorphone 0.5 MG/0.5 ML SYRINGE IV SLOW PU PRN ×2 (14:04→22:10)
[2021-05-05] MEDS ORDERED: Ondansetron 4 mg VIAL 2 MG/ML 2 ml VIAL ONE (16:30)
[2021-05-05] MEDS ORDERED: Ondansetron 4 mg VIAL 2 MG/ML 2 ml VIAL IV ONE (16:30)
[2021-05-05] MEDS ORDERED: fentaNYL 100 mcg/2 ml 50 MCG/ML VIAL ONE (17:05)
[2021-05-05] MEDS: Insulin GLARGINE 100 un/ml 10 ml VIAL SUBCUT SCH (18:36)
[2021-05-05] MEDS ORDERED: Prochlorperazine 5 mg/ml 2 ml VIAL (10 mg) IV ONE (18:42)
[2021-05-05] MEDS ORDERED: Prochlorperazine 5 mg/ml 2 ml VIAL (10 mg) ONE (18:44)
[2021-05-05] MEDS: ZOSYN 3.375 GM Q8H per EXTENDED INFUSION IV SCH (21:59)
[2021-05-06] MEDS: Heparin 5000 UNITS/ML 1 mL VIAL SUBCUT SCH ×3 (05:50→20:11)
[2021-05-06 07:08] LABS: ABS Basophils 0.1 10^3/ul (0-0.2); ABS Eosinophils 0.2 10^3/ul (0-0.6); ABS Monocytes 1.1 10^3/ul (0-0.8); ABS Neutrophils 15.9 10^3/ul (1.5-7.7); Hematocrit 29 % (42-52); Lymphocyte % 5.7 %; Mean Corpuscular HGB Conc 35 g/dL (31-36); Mean Corpuscular Hemoglobin 31 pg (27-31); Mean Corpuscular Volume 89 fL (80-94); Mean Platelet Volume 7.2 fL (7.4-10.4); Platelet Count 222 10^3/uL (150-450); Red Blood Count 3.25 10^6 /uL (4.18-5.48); Red Cell Distribution Width 17 % (10-15); White Blood Count 18.3 10^3/uL (3.5-10.8)
[2021-05-06 07:14] LABS: INR 1.44 (0.86-1.15)
[2021-05-06 07:26] LABS: Calcium 8.6 mg/dL (8.6-10.3); EGFR African American 15.9 (>60); EGFR Non-African American 13.1 (>60); Potassium 3.4 mmol/L (3.5-5.0)
[2021-05-06] MEDS ORDERED: Potassium Chlor 20 meq TAB.ER PO ONE (07:36)
[2021-05-06] MEDS: Vitamin THERAPEUTIC TAB PO SCH (07:38)
[2021-05-06] MEDS: Aspirin EC 81 mg TAB.EC (enteric coated) PO SCH (07:38)
[2021-05-06] MEDS: HYDROmorphone 0.5 MG/0.5 ML SYRINGE IV SLOW PU PRN ×2 (07:39→20:34)
[2021-05-06] MEDS ORDERED: Ondansetron 4 mg VIAL 2 MG/ML 2 ml VIAL IV PRN (08:51)
[2021-05-06] MEDS: ZOSYN 3.375 GM Q8H per EXTENDED INFUSION IV SCH ×2 (10:21→23:25)
[2021-05-06] MEDS: Insulin GLARGINE 100 un/ml 10 ml VIAL SUBCUT SCH (17:17)
[2021-05-06 20:40] LABS: Troponin I 0.05 ng/mL (<0.03)
[2021-05-06 21:20] LABS: Anion Gap 11 mmol/L (2-11); Blood Urea Nitrogen 98 mg/dL (6-24); CO2 Carbon Dioxide 30 mmol/L (22-32); Calcium 8.5 mg/dL (8.6-10.3); Chloride 85 mmol/L (101-111); EGFR African American 17.1 (>60); EGFR Non-African American 14.1 (>60); Glucose 172 mg/dL (70-100); Magnesium 2.3 mg/dL (1.9-2.7); Potassium 3.2 mmol/L (3.5-5.0); Sodium 126 mmol/L (135-145)
[2021-05-06 23:26] LABS: Troponin I 0.05 ng/mL (<0.03)
[2021-05-07] MEDS: HYDROmorphone 0.5 MG/0.5 ML SYRINGE IV SLOW PU PRN (01:05)
[2021-05-07 02:44] LABS: Troponin I 0.05 ng/mL (<0.03)
[2021-05-07] MEDS: Heparin 5000 UNITS/ML 1 mL VIAL SUBCUT SCH ×3 (06:07→20:55)
[2021-05-07 06:55] LABS: ABS Eosinophils 0.4 10^3/ul (0-0.6); ABS Monocytes 0.7 10^3/ul (0-0.8); Eosinophil % 4.3 %; Hematocrit 28 % (42-52); Hemoglobin 9.8 g/dL (14.0-18.0); Lymphocyte % 9.5 %; Mean Corpuscular HGB Conc 35 g/dL (31-36); Mean Corpuscular Hemoglobin 32 pg (27-31); Mean Corpuscular Volume 89 fL (80-94); Mean Platelet Volume 7.3 fL (7.4-10.4); Platelet Count 213 10^3/uL (150-450); Red Blood Count 3.11 10^6 /uL (4.18-5.48); Red Cell Distribution Width 16 % (10-15); White Blood Count 10.2 10^3/uL (3.5-10.8)
[2021-05-07 07:13] LABS: C Reactive Protein 257.54 mg/L (<8.01); Calcium 8.5 mg/dL (8.6-10.3); EGFR African American 16.5 (>60); EGFR Non-African American 13.6 (>60); Potassium 3.2 mmol/L (3.5-5.0)
[2021-05-07] MEDS ORDERED: Potassium Chlor 20 meq TAB.ER PO ONE (08:53)
[2021-05-07] MEDS: Vitamin THERAPEUTIC TAB PO SCH (11:11)
[2021-05-07] MEDS: Aspirin EC 81 mg TAB.EC (enteric coated) PO SCH (11:11)
[2021-05-07] MEDS: ZOSYN 3.375 GM Q8H per EXTENDED INFUSION IV SCH ×2 (11:13→22:39)
[2021-05-07] MEDS: Insulin GLARGINE 100 un/ml 10 ml VIAL SUBCUT SCH (17:36)
[2021-05-07 22:05] LABS: Urine Appearance Cloudy; Urine Bacteria Absent (Absent); Urine Bilirubin Negative (Negative); Urine Blood 3+ (Negative); Urine Color Red; Urine Glucose 3+(>=500 mg/dL) (Negative); Urine Ketones Negative (Negative); Urine Nitrite Negative (Negative); Urine Protein 2+(100 mg/dL) (Negative); Urine Red Blood Cell 3+(>10/hpf) (Absent); Urine Urobilinogen Negative (Negative); Urine White Blood Cell 3+(>20/hpf) (Absent)
[2021-05-08] MEDS: Heparin 5000 UNITS/ML 1 mL VIAL SUBCUT SCH ×3 (06:07→21:02)
[2021-05-08] MEDS ORDERED: Insulin GLARGINE 100 un/ml 10 ml VIAL SUBCUT ONE (07:35)
[2021-05-08 07:39] LABS: ABS Basophils 0.1 10^3/ul (0-0.2); ABS Eosinophils 0.7 10^3/ul (0-0.6); ABS Lymphocytes 0.8 10^3/ul (1.0-4.8); ABS Monocytes 0.7 10^3/ul (0-0.8); ABS Neutrophils 5.7 10^3/ul (1.5-7.7); Eosinophil % 8.4 %; Hematocrit 30 % (42-52); Hemoglobin 10.3 g/dL (14.0-18.0); Lymphocyte % 9.8 %; Mean Corpuscular HGB Conc 35 g/dL (31-36); Mean Corpuscular Hemoglobin 31 pg (27-31); Mean Corpuscular Volume 89 fL (80-94); Mean Platelet Volume 6.9 fL (7.4-10.4); Platelet Count 235 10^3/uL (150-450); Red Blood Count 3.34 10^6 /uL (4.18-5.48); Red Cell Distribution Width 17 % (10-15); White Blood Count 7.8 10^3/uL (3.5-10.8)
[2021-05-08 08:00] LABS: C Reactive Protein 158.67 mg/L (<8.01); Calcium 8.8 mg/dL (8.6-10.3); EGFR African American 17.9 (>60); EGFR Non-African American 14.8 (>60); Potassium 3.2 mmol/L (3.5-5.0)
[2021-05-08] MEDS: Vitamin THERAPEUTIC TAB PO SCH (08:33)
[2021-05-08] MEDS: Aspirin EC 81 mg TAB.EC (enteric coated) PO SCH (08:33)
[2021-05-08] MEDS ORDERED: Potassium Chlor 20 meq TAB.ER PO ONE (09:01)
[2021-05-08] MEDS: ZOSYN 3.375 GM Q8H per EXTENDED INFUSION IV SCH ×2 (11:12→21:12)
[2021-05-08] MEDS: Insulin GLARGINE 100 un/ml 10 ml VIAL SUBCUT SCH (17:43)
[2021-05-09] MEDS: Heparin 5000 UNITS/ML 1 mL VIAL SUBCUT SCH ×3 (06:04→22:24)
[2021-05-09 08:01] LABS: Calcium 9.1 mg/dL (8.6-10.3); EGFR African American 20.5 (>60); Magnesium 2.5 mg/dL (1.9-2.7); Phosphorus 3.6 mg/dL (2.5-5.0); Potassium 3.8 mmol/L (3.5-5.0)
[2021-05-09 08:15] LABS: Hematocrit 30 % (42-52); Hemoglobin 10.6 g/dL (14.0-18.0); Mean Corpuscular HGB Conc 35 g/dL (31-36); Mean Corpuscular Hemoglobin 31 pg (27-31); Mean Corpuscular Volume 89 fL (80-94); Mean Platelet Volume 7.2 fL (7.4-10.4); Platelet Count 260 10^3/uL (150-450); Red Blood Count 3.41 10^6 /uL (4.18-5.48); Red Cell Distribution Width 17 % (10-15); White Blood Count 7.7 10^3/uL (3.5-10.8)
[2021-05-09] MEDS: Aspirin EC 81 mg TAB.EC (enteric coated) PO SCH (08:38)
[2021-05-09] MEDS: Vitamin THERAPEUTIC TAB PO SCH (08:38)
[2021-05-09 09:16] LABS: RBC Morphology Normal (Normal)
[2021-05-09 09:17] LABS: ABS Basophils 0.1 10^3/ul (0-0.2); ABS Eosinophils 0.7 10^3/ul (0-0.6); ABS Lymphocytes 1.3 10^3/ul (1.0-4.8); ABS Monocytes 0.8 10^3/ul (0-0.8); Eosinophil % 8.4 %; Lymphocyte % 16.6 %
[2021-05-09] MEDS: ZOSYN 3.375 GM Q8H per EXTENDED INFUSION IV SCH ×2 (10:09→22:23)
[2021-05-09] MEDS: Insulin GLARGINE 100 un/ml 10 ml VIAL SUBCUT SCH (18:13)
[2021-05-10] MEDS: Heparin 5000 UNITS/ML 1 mL VIAL SUBCUT SCH ×2 (05:31→13:21)
[2021-05-10 06:51] LABS: Hematocrit 29 % (42-52); Hemoglobin 10.3 g/dL (14.0-18.0); Mean Corpuscular HGB Conc 35 g/dL (31-36); Mean Corpuscular Hemoglobin 31 pg (27-31); Mean Corpuscular Volume 89 fL (80-94); Platelet Count 246 10^3/uL (150-450); Red Blood Count 3.31 10^6 /uL (4.18-5.48); Red Cell Distribution Width 17 % (10-15); White Blood Count 8.6 10^3/uL (3.5-10.8)
[2021-05-10 07:01] LABS: Magnesium 2.3 mg/dL (1.9-2.7); Potassium 3.5 mmol/L (3.5-5.0)
[2021-05-10 07:06] LABS: EGFR African American 23.9 (>60); EGFR Non-African American 19.7 (>60)
[2021-05-10 07:32] LABS: ABS Basophils 0.1 10^3/ul (0-0.2); ABS Eosinophils 0.7 10^3/ul (0-0.6); ABS Lymphocytes 1.4 10^3/ul (1.0-4.8); ABS Neutrophils 5.5 10^3/ul (1.5-7.7); Eosinophil % 8.2 %
[2021-05-10] MEDS: Vitamin THERAPEUTIC TAB PO SCH (08:53)
[2021-05-10] MEDS: Aspirin EC 81 mg TAB.EC (enteric coated) PO SCH (08:53)
[2021-05-10] MEDS: ZOSYN 3.375 GM Q8H per EXTENDED INFUSION IV SCH (11:30)
[2021-05-10 11:31] VITALS: BP 138/70
== END 2021-05-10 14:00 | disposition home or self-care (01) | DRG 444 ==
LOC: ED 03:20 → MED 10:30
PROVIDERS: ADMIT Hospitalist; ATTEND Internal Medicine

== ENCOUNTER 2021-08-24 16:00 | Inpatient (IN) ==
[2021-08-24 19:06] LABS: Rapid COVID-19 Molecular Undetected (Undetected)
[2021-08-24 19:07] LABS: Activated Partial Thrombo Time 31.9 seconds (26.0-38.0); INR 1.23 (0.86-1.15)
[2021-08-24 19:11] LABS: ABS Eosinophils 0.1 10^3/ul (0-0.6); ABS Lymphocytes 1.7 10^3/ul (1.0-4.8); ABS Monocytes 0.9 10^3/ul (0-0.8); ABS Neutrophils 7.4 10^3/ul (1.5-7.7); Eosinophil % 0.9 %; Hematocrit 22 % (42-52); Hemoglobin 7.3 g/dL (14.0-18.0); Lymphocyte % 16.7 %; Mean Corpuscular HGB Conc 34 g/dL (31-36); Mean Corpuscular Hemoglobin 31 pg (27-31); Mean Corpuscular Volume 93 fL (80-94); Mean Platelet Volume 7.1 fL (7.4-10.4); Platelet Count 296 10^3/uL (150-450); Red Blood Count 2.32 10^6 /uL (4.18-5.48); Red Cell Distribution Width 18 % (10-15); White Blood Count 10.2 10^3/uL (3.5-10.8)
[2021-08-24 20:55] LABS: Urine Appearance Clear; Urine Bilirubin Negative (Negative); Urine Blood Negative (Negative); Urine Color Yellow; Urine Glucose 2+(150 mg/dL) (Negative); Urine Ketones Negative (Negative); Urine Nitrite Negative (Negative); Urine Protein 2+(100 mg/dL) (Negative); Urine Specific Gravity 1.011 (1.002-1.030); Urine Urobilinogen Negative (Negative)
[2021-08-24 20:58] LABS: Urine Bacteria 1+ (Absent); Urine Red Blood Cell Trace(0-2/hpf) (Absent); Urine White Blood Cell Trace(0-5/hpf) (Absent)
[2021-08-24 21:25] LABS: Albumin < 1.7 g/dL (3.2-5.2); Anion Gap 7 mmol/L (2-11); CO2 Carbon Dioxide 22 mmol/L (22-32); Calcium 9.2 mg/dL (8.6-10.3); Chloride 97 mmol/L (101-111); Magnesium 2.2 mg/dL (1.9-2.7); Potassium 4.3 mmol/L (3.5-5.0); Sodium 126 mmol/L (135-145)
[2021-08-24 21:32] LABS: ALT 44 U/L (7-52); AST 36 U/L (13-39); Albumin/Globulin Ratio 0.2 (1-3); Alkaline Phosphatase 204 U/L (35-149); Blood Urea Nitrogen 65 mg/dL (6-24); Globulin 8.6 g/dL (2-4); Glucose 386 mg/dL (70-100); Total Protein 10.3 g/dL (6.4-8.9)
[2021-08-24] MEDS ORDERED: Magnesium Hydroxide LIQ 30 ML UDC PO PRN (23:40)
[2021-08-24] MEDS ORDERED: Dextrose 50% Syringe 50 ml 25 GM/50 ML SYRINGE IV PUSH PRN (23:48)
[2021-08-25] MEDS ORDERED: HYDROcodone/ACETAMIN 5/325 mg TAB PO PRN (00:04)
[2021-08-25] MEDS ORDERED: Potassium Chlor 20 meq TAB.ER PO SCH (01:00)
[2021-08-25] MEDS: Insulin GLARGINE 100 un/ml 10 ml VIAL SUBCUT SCH ×2 (01:32→18:13)
[2021-08-25 06:46] LABS: Hematocrit 22 % (42-52); Hemoglobin 7.6 g/dL (14.0-18.0); Mean Corpuscular HGB Conc 35 g/dL (31-36); Mean Corpuscular Hemoglobin 32 pg (27-31); Mean Corpuscular Volume 92 fL (80-94); Mean Platelet Volume 6.8 fL (7.4-10.4); Platelet Count 270 10^3/uL (150-450); Red Blood Count 2.39 10^6 /uL (4.18-5.48); Red Cell Distribution Width 17 % (10-15); White Blood Count 11.4 10^3/uL (3.5-10.8)
[2021-08-25 06:54] LABS: ABS Eosinophils 0.1 10^3/ul (0-0.6); ABS Lymphocytes 1.7 10^3/ul (1.0-4.8); ABS Monocytes 1.2 10^3/ul (0-0.8); ABS Neutrophils 8.3 10^3/ul (1.5-7.7); Eosinophil % 1.2 %; Lymphocyte % 14.9 %
[2021-08-25 07:04] LABS: CO2 Carbon Dioxide 24 mmol/L (22-32); Chloride 99 mmol/L (101-111); Potassium 3.7 mmol/L (3.5-5.0); Sodium 129 mmol/L (135-145)
[2021-08-25 07:05] LABS: ALT 36 U/L (7-52); AST 21 U/L (13-39); Albumin 2.5 g/dL (3.2-5.2); Albumin/Globulin Ratio 0.4 (1-3); Alkaline Phosphatase 185 U/L (35-149); Anion Gap 6 mmol/L (2-11); Blood Urea Nitrogen 62 mg/dL (6-24); Calcium 9.1 mg/dL (8.6-10.3); Glucose 148 mg/dL (70-100); Total Protein 9.5 g/dL (6.4-8.9)
[2021-08-25 09:17] LABS: % Iron Saturation 34 % (15-55); Iron 44 ug/dL (50-212); LDH 130 U/L (140-271); Total Iron Binding Capacity 129 mcg/dL (250-450); Transferrin 92 mg/dL (203-362); Unsaturated Iron Binding < 114 ug/dL
[2021-08-25 10:21] LABS: Hepatitis B Surface Antigen Nonreactive (Nonreactive)
[2021-08-25 10:38] LABS: Hepatitis B Surface Ab Immune (Immune)
[2021-08-25 15:56] LABS: Hematocrit for Retic CNT 22 % (42-52); RBC Retic Count 2.32 10^6/uL (4.18-5.48)
[2021-08-25 16:00] LABS: Corrected Retic Count 1.9 % (0.5-1.5); Immature Retic Fraction 0.58
[2021-08-25] MEDS: Heparin 1,000 UNIT/ML 10 ml (10,000 UNITS) CATHLAB/DIALYSIS DIALYSIS ONE ×2 (16:00→18:12)
[2021-08-25 16:19] LABS: Hematocrit 27 % (42-52); Hemoglobin 9.1 g/dL (14.0-18.0); Mean Corpuscular HGB Conc 34 g/dL (31-36); Mean Corpuscular Hemoglobin 31 pg (27-31); Mean Corpuscular Volume 92 fL (80-94); Mean Platelet Volume 6.7 fL (7.4-10.4); Platelet Count 323 10^3/uL (150-450); Red Blood Count 2.94 10^6 /uL (4.18-5.48); Red Cell Distribution Width 17 % (10-15); White Blood Count 14.4 10^3/uL (3.5-10.8)
[2021-08-25] MEDS: Bumetanide IV 0.25 MG/ML 4 ml VIAL (1 mg) IV SCH ×2 (16:29→21:16)
[2021-08-25 19:38] LABS: Troponin I 0.05 ng/mL (<0.03)
[2021-08-25 20:04] LABS: Ferritin 627.1 ng/mL (24-336)
[2021-08-25] MEDS: Heparin 5000 UNITS/ML 1 mL VIAL SUBCUT SCH (21:16)
[2021-08-25 23:03] LABS: Troponin I 0.04 ng/mL (<0.03)
[2021-08-26] MEDS: Heparin 5000 UNITS/ML 1 mL VIAL SUBCUT SCH ×3 (05:22→20:58)
[2021-08-26 05:47] LABS: Hematocrit 27 % (42-52); Mean Corpuscular HGB Conc 33 g/dL (31-36); Mean Corpuscular Hemoglobin 31 pg (27-31); Mean Corpuscular Volume 92 fL (80-94); Mean Platelet Volume 6.9 fL (7.4-10.4); Platelet Count 307 10^3/uL (150-450); Red Blood Count 2.93 10^6 /uL (4.18-5.48); Red Cell Distribution Width 18 % (10-15); White Blood Count 11.8 10^3/uL (3.5-10.8)
[2021-08-26 06:20] LABS: Albumin 2.7 g/dL (3.2-5.2); Albumin/Globulin Ratio 0.4 (1-3); Calcium 9.1 mg/dL (8.6-10.3); Globulin 7.5 g/dL (2-4); Magnesium 2.1 mg/dL (1.9-2.7); Potassium 4.1 mmol/L (3.5-5.0); Total Bilirubin 0.6 mg/dL (0.2-1.0); Total Protein 10.2 g/dL (6.4-8.9)
[2021-08-26] MEDS ORDERED: Iron Sucrose 200 MG in NS 0.9% 100 ml BAG 100 ML IVPB ONE (08:00)
[2021-08-26] MEDS: Bumetanide IV 0.25 MG/ML 4 ml VIAL (1 mg) IV SCH ×3 (08:32→21:06)
[2021-08-26] MEDS ORDERED: Albuterol HFA INHALER 8 gm MDI INH PRN (09:37)
[2021-08-26] MEDS ORDERED: Budesonide/Formote 160/4.5(NF) MDI INH SCH (10:00)
[2021-08-26] MEDS: Mometasone/Formoter 200/5 MDI INH SCH ×2 (10:58→19:53)
[2021-08-26] MEDS ORDERED: Midazolam 5 mg/5 ml VIAL 1 mg/ml 5 ml VIAL (5 mg) ONE (10:59)
[2021-08-26] MEDS ORDERED: Naloxone 0.4 mg VIAL 0.4 mg/ml 1 ml VIAL ONE (10:59)
[2021-08-26] MEDS ORDERED: fentaNYL 100 mcg/2 ml 50 MCG/ML VIAL ONE (10:59)
[2021-08-26] MEDS ORDERED: Flumazenil 0.5 mg/5 ml 0.1 MG/ML 5 ml VIAL ONE (10:59)
[2021-08-26] MEDS: Aspirin EC 81 mg TAB.EC (enteric coated) PO SCH (13:26)
[2021-08-26] MEDS ORDERED: Heparin 1,000 UNIT/ML 10 ml (10,000 UNITS) CATHLAB/DIALYSIS DIALYSIS ONE (15:00)
[2021-08-26] MEDS: Insulin GLARGINE 100 un/ml 10 ml VIAL SUBCUT SCH (17:32)
[2021-08-26] MEDS ORDERED: Vancomycin 1,500 MG in NS 0.9% 250 ml 250 ML IVPB ONE (18:30)
[2021-08-26] MEDS ORDERED: Lorazepam PYXIS KEY PRN (18:37)
[2021-08-26] MEDS ORDERED: LORazepam 2 mg VIAL 1 ml IV PUSH PRN (18:37)
[2021-08-26] MEDS: cefTRIAXone 2 GM ADDV.VIAL 2 GM in NS 0.9% 100 ml BAG 100 ML IV SCH (19:40)
[2021-08-26] MEDS ORDERED: Vancomycin per Pharmacy 1 EA NOTE FOLLOW UP PRN (22:01)
[2021-08-27] MEDS: Heparin 5000 UNITS/ML 1 mL VIAL SUBCUT SCH ×3 (05:31→21:37)
[2021-08-27] MEDS ORDERED: Vancomycin Random Level NOTE FOLLOW UP ONE (06:00)
[2021-08-27] MEDS: Mometasone/Formoter 200/5 MDI INH SCH ×2 (08:16→19:53)
[2021-08-27] MEDS ORDERED: Dexamethasone IV 4 MG/ML VIAL 1 ml VIAL IV SLOW PU SCH (09:00)
[2021-08-27] MEDS: Aspirin EC 81 mg TAB.EC (enteric coated) PO SCH (09:02)
[2021-08-27 09:06] LABS: Hematocrit 26 % (42-52); Hemoglobin 8.9 g/dL (14.0-18.0); Mean Corpuscular HGB Conc 34 g/dL (31-36); Mean Corpuscular Hemoglobin 32 pg (27-31); Mean Corpuscular Volume 93 fL (80-94); Platelet Count 300 10^3/uL (150-450); Red Blood Count 2.79 10^6 /uL (4.18-5.48); Red Cell Distribution Width 18 % (10-15); White Blood Count 10.3 10^3/uL (3.5-10.8)
[2021-08-27] MEDS: Bumetanide IV 0.25 MG/ML 4 ml VIAL (1 mg) IV SCH ×2 (09:08→21:33)
[2021-08-27 09:22] LABS: Calcium 8.5 mg/dL (8.6-10.3); Phosphorus 4.1 mg/dL (2.5-5.0); Potassium 3.6 mmol/L (3.5-5.0)
[2021-08-27 09:25] LABS: Vancomycin Random 12.8 mcg/mL
[2021-08-27] MEDS: Dexamethasone IV 40 MG in NS 0.9% 50 ML 50 ML IVPB SCH (09:54)
[2021-08-27] MEDS ORDERED: hydrOXYzine LIQ ORALSYR 2 MG/ML PO PRN (10:48)
[2021-08-27] MEDS ORDERED: Vancomycin 1,000 MG - ED ONCE IVPB ONE (15:00)
[2021-08-27 17:35] LABS: Glucose Confirmatory 401 mg/dL (70-100)
[2021-08-27] MEDS: Insulin GLARGINE 100 un/ml 10 ml VIAL SUBCUT SCH (17:48)
[2021-08-27] MEDS ORDERED: Insulin GLARGINE 100 un/ml 10 ml VIAL SUBCUT SCH (18:00)
[2021-08-27] MEDS: cefTRIAXone 2 GM ADDV.VIAL 2 GM in NS 0.9% 100 ml BAG 100 ML IV SCH (21:31)
[2021-08-27 22:10] LABS: Glucose Confirmatory 450 mg/dL (70-100)
[2021-08-28] MEDS: Heparin 5000 UNITS/ML 1 mL VIAL SUBCUT SCH ×3 (05:25→22:44)
[2021-08-28] MEDS ORDERED: Vancomycin Random Level NOTE FOLLOW UP ONE (06:00)
[2021-08-28 06:13] LABS: ABS Lymphocytes 0.9 10^3/ul (1.0-4.8); ABS Monocytes 0.6 10^3/ul (0-0.8); ABS Neutrophils 11.8 10^3/ul (1.5-7.7); Hematocrit 25 % (42-52); Hemoglobin 8.3 g/dL (14.0-18.0); Lymphocyte % 6.5 %; Mean Corpuscular HGB Conc 33 g/dL (31-36); Mean Corpuscular Hemoglobin 31 pg (27-31); Mean Corpuscular Volume 94 fL (80-94); Mean Platelet Volume 7.1 fL (7.4-10.4); Platelet Count 281 10^3/uL (150-450); Red Cell Distribution Width 18 % (10-15); White Blood Count 13.3 10^3/uL (3.5-10.8)
[2021-08-28 06:29] LABS: Calcium 8.4 mg/dL (8.6-10.3); Magnesium 2.1 mg/dL (1.9-2.7); Phosphorus 4.9 mg/dL (2.5-5.0); Potassium 3.8 mmol/L (3.5-5.0)
[2021-08-28] MEDS: Bumetanide IV 0.25 MG/ML 4 ml VIAL (1 mg) IV SCH ×2 (07:37→22:37)
[2021-08-28] MEDS: Aspirin EC 81 mg TAB.EC (enteric coated) PO SCH (07:40)
[2021-08-28] MEDS: Dexamethasone IV 40 MG in NS 0.9% 50 ML 50 ML IVPB SCH (07:47)
[2021-08-28 07:51] LABS: Glucose Confirmatory 402 mg/dL (70-100)
[2021-08-28] MEDS: Mometasone/Formoter 200/5 MDI INH SCH ×2 (08:26→20:38)
[2021-08-28] MEDS ORDERED: Dextrose 50% Syringe 50 ml 25 GM/50 ML SYRINGE IV PUSH PRN ×2 (11:41→21:24)
[2021-08-28 12:23] LABS: Glucose Confirmatory 492 mg/dL (70-100)
[2021-08-28] MEDS ORDERED: Insulin ISOPH/REG 70/30 SUBCUT SCH (17:00)
[2021-08-28 17:08] LABS: Glucose Confirmatory 625 mg/dL (70-100)
[2021-08-28 17:58] LABS: Calcium 8.1 mg/dL (8.6-10.3); Potassium 4.1 mmol/L (3.5-5.0)
[2021-08-28] MEDS: Insulin GLARGINE 100 un/ml 10 ml VIAL SUBCUT SCH (18:26)
[2021-08-28] MEDS: cefTRIAXone 2 GM ADDV.VIAL 2 GM in NS 0.9% 100 ml BAG 100 ML IV SCH (23:49)
[2021-08-29] MEDS ORDERED: Dextrose 50% Syringe 50 ml 25 GM/50 ML SYRINGE IV PUSH PRN (00:41)
[2021-08-29 01:42] LABS: Urine Appearance Cloudy; Urine Bilirubin Negative (Negative); Urine Blood 1+ (Negative); Urine Color Yellow; Urine Glucose 3+(>=500 mg/dL) (Negative); Urine Ketones Negative (Negative); Urine Nitrite Negative (Negative); Urine Protein 2+(100 mg/dL) (Negative); Urine Specific Gravity 1.015 (1.002-1.030); Urine Urobilinogen Negative (Negative)
[2021-08-29 02:01] LABS: Urine Bacteria Absent (Absent); Urine Red Blood Cell 1+(3-5/hpf) (Absent); Urine Squamous Epithelial Cell Present (Absent); Urine White Blood Cell Trace(0-5/hpf) (Absent)
[2021-08-29 04:43] LABS: Hematocrit 22 % (42-52); Hemoglobin 7.5 g/dL (14.0-18.0); Mean Corpuscular HGB Conc 34 g/dL (31-36); Mean Corpuscular Hemoglobin 31 pg (27-31); Mean Corpuscular Volume 93 fL (80-94); Mean Platelet Volume 7.2 fL (7.4-10.4); Platelet Count 268 10^3/uL (150-450); Red Blood Count 2.42 10^6 /uL (4.18-5.48); Red Cell Distribution Width 17 % (10-15)
[2021-08-29 05:00] LABS: Calcium 7.9 mg/dL (8.6-10.3); Magnesium 2.1 mg/dL (1.9-2.7); Phosphorus 5.3 mg/dL (2.5-5.0); Potassium 3.9 mmol/L (3.5-5.0)
[2021-08-29 05:12] LABS: Vancomycin Random 16.6 mcg/mL
[2021-08-29] MEDS: Heparin 5000 UNITS/ML 1 mL VIAL SUBCUT SCH ×3 (05:29→21:14)
[2021-08-29] MEDS: Mometasone/Formoter 200/5 MDI INH SCH ×2 (07:59→20:45)
[2021-08-29] MEDS ORDERED: Insulin ISOPH/REG 70/30 SUBCUT SCH (08:00)
[2021-08-29 09:11] LABS: Glucose Confirmatory 462 mg/dL (70-100)
[2021-08-29 10:21] LABS: C Reactive Protein 68.97 mg/L (<8.01)
[2021-08-29] MEDS: Dexamethasone IV 40 MG in NS 0.9% 50 ML 50 ML IVPB SCH (10:22)
[2021-08-29] MEDS: Insulin NPH 100 units/ml SUBCUT SCH ×2 (10:22→18:19)
[2021-08-29 11:21] LABS: Kappa Free Light Chain 2.15 mg/dL; Lambda Free Light Chain, S 44.9 mg/dL
[2021-08-29 12:03] LABS: Immunoglobulin A 84 mg/dL (61 - 356); Immunoglobulin G 5340 mg/dL (767 - 1590); Immunoglobulin M 26 mg/dL (37 - 286)
[2021-08-29] MEDS: Heparin 1,000 UNIT/ML 10 ml (10,000 UNITS) CATHLAB/DIALYSIS DIALYSIS SCH ×4 (12:33→15:52)
[2021-08-29 12:47] LABS: Calcium 7.8 mg/dL (8.6-10.3); Potassium 3.5 mmol/L (3.5-5.0)
[2021-08-29 13:41] LABS: Haptoglobin 307 mg/dL (30 - 200)
[2021-08-29] MEDS ORDERED: Vancomycin - DIALYSIS DOSING 1 EA NOTE FOLLOW UP SCH (14:00)
[2021-08-29 14:56] LABS: Immunoglobulin A 82 mg/dL (61 - 356); Immunoglobulin M 27 mg/dL (37 - 286)
[2021-08-29 15:42] LABS: Immunoglobulin G 5870 mg/dL (767 - 1590)
[2021-08-29] MEDS: Bumetanide IV 0.25 MG/ML 4 ml VIAL (1 mg) IV SCH ×2 (16:10→20:06)
[2021-08-29] MEDS: Aspirin EC 81 mg TAB.EC (enteric coated) PO SCH (16:11)
[2021-08-29 17:49] LABS: Calcium 7.5 mg/dL (8.6-10.3); Potassium 3.9 mmol/L (3.5-5.0)
[2021-08-29] MEDS ORDERED: Vancomycin 750 MG in NS 0.9% 250 ML IVPB ONE (18:00)
[2021-08-29 18:17] LABS: Albumin 2.5 g/dL (3.4-4.7); Albumin/Globulin Ratio 0.39; Gamma Globulin 3.7 g/dL (0.6-1.6); Total Protein(PEP) 8.9 g/dL (6.3 - 7.9)
[2021-08-29] MEDS: Insulin GLARGINE 100 un/ml 10 ml VIAL SUBCUT SCH (18:20)
[2021-08-29 19:40] LABS: Kappa Free Light Chain 2.04 mg/dL; Lambda Free Light Chain, S 38.5 mg/dL
[2021-08-29] MEDS: cefTRIAXone 2 GM ADDV.VIAL 2 GM in NS 0.9% 100 ml BAG 100 ML IV SCH (21:11)
[2021-08-29 21:25] LABS: ABS Basophils 0.1 10^3/ul (0-0.2); ABS Lymphocytes 0.6 10^3/ul (1.0-4.8); ABS Monocytes 0.6 10^3/ul (0-0.8); ABS Neutrophils 15.4 10^3/ul (1.5-7.7); Hematocrit 24 % (42-52); Hemoglobin 8.4 g/dL (14.0-18.0); Lymphocyte % 3.7 %; Mean Corpuscular HGB Conc 35 g/dL (31-36); Mean Corpuscular Hemoglobin 31 pg (27-31); Mean Corpuscular Volume 91 fL (80-94); Mean Platelet Volume 7.3 fL (7.4-10.4); Platelet Count 263 10^3/uL (150-450); Red Blood Count 2.69 10^6 /uL (4.18-5.48); Red Cell Distribution Width 17 % (10-15); White Blood Count 16.6 10^3/uL (3.5-10.8)
[2021-08-29 21:45] LABS: Calcium 7.6 mg/dL (8.6-10.3); Potassium 3.8 mmol/L (3.5-5.0)
[2021-08-30 01:48] LABS: Calcium 7.8 mg/dL (8.6-10.3); Potassium 3.7 mmol/L (3.5-5.0)
[2021-08-30 06:03] LABS: Hematocrit 24 % (42-52); Hemoglobin 8.1 g/dL (14.0-18.0); Mean Corpuscular HGB Conc 34 g/dL (31-36); Mean Corpuscular Hemoglobin 31 pg (27-31); Mean Corpuscular Volume 90 fL (80-94); Mean Platelet Volume 7.5 fL (7.4-10.4); Platelet Count 241 10^3/uL (150-450); Red Blood Count 2.63 10^6 /uL (4.18-5.48); Red Cell Distribution Width 18 % (10-15); White Blood Count 15.2 10^3/uL (3.5-10.8)
[2021-08-30 06:42] LABS: Calcium 7.5 mg/dL (8.6-10.3); Magnesium 1.9 mg/dL (1.9-2.7); Potassium 3.8 mmol/L (3.5-5.0)
[2021-08-30] MEDS: Heparin 5000 UNITS/ML 1 mL VIAL SUBCUT SCH ×3 (07:07→22:11)
[2021-08-30] MEDS: Mometasone/Formoter 200/5 MDI INH SCH ×2 (08:14→19:51)
[2021-08-30] MEDS: Aspirin EC 81 mg TAB.EC (enteric coated) PO SCH (08:41)
[2021-08-30] MEDS: Bumetanide IV 0.25 MG/ML 4 ml VIAL (1 mg) IV SCH ×2 (08:42→20:04)
[2021-08-30] MEDS: Dexamethasone IV 40 MG in NS 0.9% 50 ML 50 ML IVPB SCH (08:43)
[2021-08-30] MEDS: Insulin NPH 100 units/ml SUBCUT SCH ×2 (09:03→17:24)
[2021-08-30 09:30] LABS: Albumin 2.5 g/dL (3.4-4.7); Albumin/Globulin Ratio 0.35; Gamma Globulin 4.2 g/dL (0.6-1.6); Total Protein(PEP) 9.5 g/dL (6.3 - 7.9)
[2021-08-30] MEDS ORDERED: Buffered Lidocaine 1% SYRIN 1 ml INTRADERM ONE (12:23)
[2021-08-30] MEDS ORDERED: Pantoprazole VIAL 40 MG VIAL IV ONE (15:27)
[2021-08-30] MEDS: Calcium Carb (TUMS) 500 mg CHEW TAB PO PRN (16:10)
[2021-08-30] MEDS ORDERED: Bortezomib SQ USE 3.5 MG/1.4 ML VIAL SUBCUT ONE (18:00)
[2021-08-30] MEDS ORDERED: NS 0.9% IVPB ONE (18:00)
[2021-08-30] MEDS ORDERED: CYCLOPHOSPHAMIDE IVPB ONE (18:00)
[2021-08-30] MEDS: cefTRIAXone 2 GM ADDV.VIAL 2 GM in NS 0.9% 100 ml BAG 100 ML IV SCH (19:59)
[2021-08-31] MEDS: Calcium Carb (TUMS) 500 mg CHEW TAB PO PRN ×3 (02:21→16:04)
[2021-08-31] MEDS: Bismuth Subsalicylate (BTL) 525 MG/30 ML (BULK BTL) PO PRN ×2 (04:31→13:37)
[2021-08-31 05:08] LABS: Hematocrit 28 % (42-52); Hemoglobin 9.5 g/dL (14.0-18.0); Mean Corpuscular HGB Conc 34 g/dL (31-36); Mean Corpuscular Hemoglobin 31 pg (27-31); Mean Corpuscular Volume 91 fL (80-94); Mean Platelet Volume 7.1 fL (7.4-10.4); Platelet Count 317 10^3/uL (150-450); Red Blood Count 3.11 10^6 /uL (4.18-5.48); Red Cell Distribution Width 17 % (10-15); White Blood Count 25.1 10^3/uL (3.5-10.8)
[2021-08-31 05:25] LABS: Calcium 7.7 mg/dL (8.6-10.3); Magnesium 1.9 mg/dL (1.9-2.7); Phosphorus 3.7 mg/dL (2.5-5.0)
[2021-08-31] MEDS ORDERED: Vancomycin Random Level NOTE FOLLOW UP ONE (06:00)
[2021-08-31] MEDS: Heparin 5000 UNITS/ML 1 mL VIAL SUBCUT SCH ×3 (06:24→21:52)
[2021-08-31 07:20] LABS: Vancomycin Random 14.1 mcg/mL
[2021-08-31] MEDS ORDERED: Insulin NPH 100 units/ml SUBCUT SCH (08:00)
[2021-08-31] MEDS: Mometasone/Formoter 200/5 MDI INH SCH ×2 (08:14→19:19)
[2021-08-31] MEDS: Aspirin EC 81 mg TAB.EC (enteric coated) PO SCH (08:51)
[2021-08-31] MEDS: Bumetanide IV 0.25 MG/ML 4 ml VIAL (1 mg) IV SCH (08:52)
[2021-08-31] MEDS: Insulin GLARGINE 100 un/ml 10 ml VIAL SUBCUT SCH (08:53)
[2021-08-31] MEDS ORDERED: Dextrose 50% Syringe 50 ml 25 GM/50 ML SYRINGE IV PUSH PRN (11:22)
[2021-08-31] MEDS: Heparin 1,000 UNIT/ML 10 ml (10,000 UNITS) CATHLAB/DIALYSIS DIALYSIS SCH ×4 (14:03→17:14)
[2021-08-31] MEDS ORDERED: Vancomycin 750 MG in NS 0.9% 250 ML IVPB ONE (16:00)
[2021-08-31] MEDS: cefTRIAXone 2 GM ADDV.VIAL 2 GM in NS 0.9% 100 ml BAG 100 ML IV SCH (21:54)
[2021-09-01] MEDS: Heparin 5000 UNITS/ML 1 mL VIAL SUBCUT SCH ×3 (07:32→22:22)
[2021-09-01] MEDS: Mometasone/Formoter 200/5 MDI INH SCH ×2 (07:46→20:18)
[2021-09-01] MEDS ORDERED: Heparin 2 UNITS/ML IVPREMIX 1,000 UNIT/500 ML BAG IV ONE (08:13)
[2021-09-01] MEDS ORDERED: fentaNYL 100 mcg/2 ml 50 MCG/ML VIAL ONE (08:13)
[2021-09-01] MEDS ORDERED: Midazolam 5 mg/5 ml VIAL 1 mg/ml 5 ml VIAL (5 mg) ONE (08:13)
[2021-09-01] MEDS ORDERED: Ondansetron 4 mg VIAL 2 MG/ML 2 ml VIAL ONE (08:13)
[2021-09-01] MEDS ORDERED: Lidocaine 1% VIAL 10 MG/ML VIAL ONE (08:13)
[2021-09-01] MEDS ORDERED: Heparin 5000 UNITS/ML 1 mL VIAL ONE (08:46)
[2021-09-01] MEDS: Aspirin EC 81 mg TAB.EC (enteric coated) PO SCH (10:36)
[2021-09-01 10:42] LABS: Hematocrit 26 % (42-52); Hemoglobin 8.6 g/dL (14.0-18.0); Mean Corpuscular HGB Conc 33 g/dL (31-36); Mean Corpuscular Hemoglobin 31 pg (27-31); Mean Corpuscular Volume 93 fL (80-94); Mean Platelet Volume 7.3 fL (7.4-10.4); Platelet Count 236 10^3/uL (150-450); Red Blood Count 2.79 10^6 /uL (4.18-5.48); Red Cell Distribution Width 18 % (10-15); White Blood Count 13.5 10^3/uL (3.5-10.8)
[2021-09-01] MEDS: Insulin GLARGINE 100 un/ml 10 ml VIAL SUBCUT SCH (10:49)
[2021-09-01 11:03] LABS: Calcium 7.6 mg/dL (8.6-10.3); Magnesium 1.9 mg/dL (1.9-2.7); Phosphorus 3.5 mg/dL (2.5-5.0); Potassium 3.7 mmol/L (3.5-5.0)
[2021-09-01] MEDS: cefTRIAXone 2 GM ADDV.VIAL 2 GM in NS 0.9% 100 ml BAG 100 ML IV SCH (22:17)
[2021-09-02 05:06] LABS: Hematocrit 25 % (42-52); Hemoglobin 8.2 g/dL (14.0-18.0); Mean Corpuscular HGB Conc 34 g/dL (31-36); Mean Corpuscular Hemoglobin 31 pg (27-31); Mean Corpuscular Volume 93 fL (80-94); Mean Platelet Volume 7.1 fL (7.4-10.4); Platelet Count 164 10^3/uL (150-450); Red Blood Count 2.63 10^6 /uL (4.18-5.48); Red Cell Distribution Width 18 % (10-15); White Blood Count 9.2 10^3/uL (3.5-10.8)
[2021-09-02] MEDS: Heparin 5000 UNITS/ML 1 mL VIAL SUBCUT SCH ×3 (05:19→21:41)
[2021-09-02 05:26] LABS: Calcium 7.2 mg/dL (8.6-10.3); Magnesium 1.7 mg/dL (1.9-2.7); Phosphorus 4.1 mg/dL (2.5-5.0)
[2021-09-02 05:50] LABS: ABS Eosinophils 0.1 10^3/ul (0-0.6); ABS Lymphocytes 1.2 10^3/ul (1.0-4.8); ABS Monocytes 1.1 10^3/ul (0-0.8); ABS Neutrophils 6.8 10^3/ul (1.5-7.7); Eosinophil % 0.9 %; Lymphocyte % 13.4 %; Nucleated Red Blood Cells % 0.2
[2021-09-02 06:05] LABS: Vancomycin Random 11.9 mcg/mL
[2021-09-02] MEDS ORDERED: Magnesium Sulfate 2 gm BAG 2 GM/50 ML BAG IVPB ONE (06:53)
[2021-09-02] MEDS: Mometasone/Formoter 200/5 MDI INH SCH ×2 (07:08→20:15)
[2021-09-02] MEDS: Heparin 1,000 UNIT/ML 10 ml (10,000 UNITS) CATHLAB/DIALYSIS DIALYSIS SCH ×4 (07:22→11:12)
[2021-09-02] MEDS: Vancomycin Random Level NOTE FOLLOW UP SCH (08:15)
[2021-09-02] MEDS: Aspirin EC 81 mg TAB.EC (enteric coated) PO SCH (12:33)
[2021-09-02] MEDS: Insulin GLARGINE 100 un/ml 10 ml VIAL SUBCUT SCH (12:55)
[2021-09-02] MEDS: Nystatin TOP POWDER 15 GM BTL TOPICAL SCH ×2 (14:34→21:40)
[2021-09-02] MEDS ORDERED: Vancomycin 750 MG in NS 0.9% 250 ML IVPB ONE (17:00)
[2021-09-02] MEDS: cefTRIAXone 2 GM ADDV.VIAL 2 GM in NS 0.9% 100 ml BAG 100 ML IV SCH (21:41)
[2021-09-03] MEDS: Nystatin TOP POWDER 15 GM BTL TOPICAL SCH ×4 (00:29→20:12)
[2021-09-03] MEDS: Heparin 5000 UNITS/ML 1 mL VIAL SUBCUT SCH ×3 (05:21→20:12)
[2021-09-03 05:36] LABS: Hematocrit 25 % (42-52); Hemoglobin 8.2 g/dL (14.0-18.0); Mean Corpuscular HGB Conc 34 g/dL (31-36); Mean Corpuscular Hemoglobin 31 pg (27-31); Mean Corpuscular Volume 94 fL (80-94); Platelet Count 155 10^3/uL (150-450); Red Blood Count 2.62 10^6 /uL (4.18-5.48); Red Cell Distribution Width 18 % (10-15); White Blood Count 9.9 10^3/uL (3.5-10.8)
[2021-09-03 05:51] LABS: Calcium 7.8 mg/dL (8.6-10.3); Magnesium 2.1 mg/dL (1.9-2.7); Potassium 3.7 mmol/L (3.5-5.0)
[2021-09-03] MEDS: Mometasone/Formoter 200/5 MDI INH SCH ×2 (07:17→19:45)
[2021-09-03] MEDS: Insulin GLARGINE 100 un/ml 10 ml VIAL SUBCUT SCH (09:40)
[2021-09-03] MEDS: Aspirin EC 81 mg TAB.EC (enteric coated) PO SCH (09:46)
[2021-09-03] MEDS: cefTRIAXone 2 GM ADDV.VIAL 2 GM in NS 0.9% 100 ml BAG 100 ML IV SCH (20:22)
[2021-09-04] MEDS: Heparin 5000 UNITS/ML 1 mL VIAL SUBCUT SCH ×3 (05:24→20:31)
[2021-09-04] MEDS: Mometasone/Formoter 200/5 MDI INH SCH ×2 (07:31→19:13)
[2021-09-04] MEDS: Aspirin EC 81 mg TAB.EC (enteric coated) PO SCH (09:21)
[2021-09-04] MEDS: Nystatin TOP POWDER 15 GM BTL TOPICAL SCH ×3 (09:22→20:34)
[2021-09-04] MEDS: Insulin GLARGINE 100 un/ml 10 ml VIAL SUBCUT SCH (09:22)
[2021-09-04] MEDS: cefTRIAXone 2 GM ADDV.VIAL 2 GM in NS 0.9% 100 ml BAG 100 ML IV SCH (20:34)
[2021-09-05] MEDS: Heparin 5000 UNITS/ML 1 mL VIAL SUBCUT SCH ×3 (05:33→23:30)
[2021-09-05 05:54] LABS: Hematocrit 23 % (42-52); Hemoglobin 7.7 g/dL (14.0-18.0); Mean Corpuscular HGB Conc 34 g/dL (31-36); Mean Corpuscular Hemoglobin 32 pg (27-31); Mean Corpuscular Volume 94 fL (80-94); Mean Platelet Volume 7.7 fL (7.4-10.4); Platelet Count 164 10^3/uL (150-450); Red Blood Count 2.44 10^6 /uL (4.18-5.48); Red Cell Distribution Width 18 % (10-15)
[2021-09-05 06:08] LABS: Calcium 8.1 mg/dL (8.6-10.3); Magnesium 1.8 mg/dL (1.9-2.7)
[2021-09-05] MEDS: Vancomycin Random Level NOTE FOLLOW UP SCH (06:26)
[2021-09-05] MEDS ORDERED: Magnesium Sulfate IV 1GM/100ML 1 GM/100 ML BAG IV ONE (07:27)
[2021-09-05] MEDS: Mometasone/Formoter 200/5 MDI INH SCH ×2 (08:23→20:16)
[2021-09-05] MEDS: Heparin 1,000 UNIT/ML 10 ml (10,000 UNITS) CATHLAB/DIALYSIS DIALYSIS SCH ×5 (08:34→12:52)
[2021-09-05] MEDS: Nystatin TOP POWDER 15 GM BTL TOPICAL SCH ×4 (12:22→20:15)
[2021-09-05 12:37] LABS: C Reactive Protein 119.06 mg/L (<8.01)
[2021-09-05] MEDS: Aspirin EC 81 mg TAB.EC (enteric coated) PO SCH (13:05)
[2021-09-05] MEDS: Insulin GLARGINE 100 un/ml 10 ml VIAL SUBCUT SCH (13:07)
[2021-09-05] MEDS ORDERED: Vancomycin 1000 MG in NS 0.9% 250 ML IVPB ONE (16:00)
[2021-09-05] MEDS: cefTRIAXone 2 GM ADDV.VIAL 2 GM in NS 0.9% 100 ml BAG 100 ML IV SCH (20:04)
[2021-09-06 04:37] LABS: ABS Lymphocytes 0.6 10^3/ul (1.0-4.8); Eosinophil % 0.4 %; Hematocrit 26 % (42-52); Hemoglobin 8.8 g/dL (14.0-18.0); Lymphocyte % 6.3 %; Mean Corpuscular HGB Conc 34 g/dL (31-36); Mean Corpuscular Hemoglobin 31 pg (27-31); Mean Corpuscular Volume 92 fL (80-94); Mean Platelet Volume 7.8 fL (7.4-10.4); Platelet Count 164 10^3/uL (150-450); Red Blood Count 2.83 10^6 /uL (4.18-5.48); Red Cell Distribution Width 18 % (10-15); White Blood Count 9.7 10^3/uL (3.5-10.8)
[2021-09-06 04:50] LABS: Calcium 7.9 mg/dL (8.6-10.3); Magnesium 1.9 mg/dL (1.9-2.7); Potassium 4.1 mmol/L (3.5-5.0)
[2021-09-06] MEDS: Heparin 5000 UNITS/ML 1 mL VIAL SUBCUT SCH (05:56)
[2021-09-06 07:05] VITALS: BP 143/79
[2021-09-06] MEDS: Mometasone/Formoter 200/5 MDI INH SCH (07:06)
[2021-09-06] MEDS: Insulin GLARGINE 100 un/ml 10 ml VIAL SUBCUT SCH (08:49)
[2021-09-06] MEDS: Aspirin EC 81 mg TAB.EC (enteric coated) PO SCH (08:50)
[2021-09-06] MEDS: Nystatin TOP POWDER 15 GM BTL TOPICAL SCH (08:51)
[2021-09-06] MEDS ORDERED: CYCLOPHOSPHAMIDE IVPB ONE (09:00)
[2021-09-06] MEDS ORDERED: NS 0.9% IVPB ONE (09:00)
[2021-09-06] MEDS ORDERED: Bortezomib SQ USE 3.5 MG/1.4 ML VIAL SUBCUT ONE (09:00)
== END 2021-09-06 16:30 | disposition home health service (06) | DRG 673 ==
LOC: ED 16:00 → EDHOLD 23:40 → SUATTDRO 23:40 → MED 08-25 17:15
PROVIDERS: ADMIT Internal Medicine; ATTEND Internal Medicine

== ENCOUNTER 2022-09-20 02:12 | Inpatient (IN) ==
[2022-09-20 03:16] LABS: PCO2 Arterial 32 mmHg (35-45); PO2 Arterial 64 mmHg (80-100)
[2022-09-20] MEDS ORDERED: Albuterol/Ipratropium NEB.SOL (2.5/0.5 MG) 3 ML NEB.SOLN INH ONE (03:24)
[2022-09-20] MEDS ORDERED: methylPREDNISolone SOD SUCC 40 mg/ml 1 ml VIAL IV ONE (03:25)
[2022-09-20] MEDS ORDERED: cefTRIAXone 1 gm/50 mL D5W 1 GM/50 ML BAG IV ONE (03:26)
[2022-09-20] MEDS ORDERED: Azithromycin 500 mg/250 ml NS 500 MG/250 ML BAG IVPB ONE (03:27)
[2022-09-20 03:29] LABS: Hematocrit 32 % (42-52); Hemoglobin 10.2 g/dL (14.0-18.0); Mean Corpuscular HGB Conc 32 g/dL (31-36); Mean Corpuscular Hemoglobin 32 pg (27-31); Mean Corpuscular Volume 100 fL (80-94); Mean Platelet Volume 7.9 fL (7.4-10.4); Platelet Count 146 10^3/uL (150-450); Red Blood Count 3.14 10^6 /uL (4.18-5.48); Red Cell Distribution Width 20 % (10-15); White Blood Count 40.3 10^3/uL (3.5-10.8)
[2022-09-20 03:30] LABS: Urine Appearance Clear; Urine Bilirubin Negative (Negative); Urine Blood 1+ (Negative); Urine Color Yellow; Urine Glucose 3+(>=500 mg/dL) (Negative); Urine Ketones Negative (Negative); Urine Nitrite Negative (Negative); Urine Protein 2+(100 mg/dL) (Negative); Urine Specific Gravity 1.014 (1.002-1.030); Urine Urobilinogen Negative (Negative)
[2022-09-20 03:37] LABS: Urine Bacteria Absent (Absent); Urine Red Blood Cell Trace(0-2/hpf) (Absent); Urine Squamous Epithelial Cell Present (Absent); Urine White Blood Cell Trace(0-5/hpf) (Absent)
[2022-09-20] MEDS ORDERED: Dextrose 50% Syringe 50 ml 25 GM/50 ML SYRINGE IV PUSH PRN ×2 (03:51→06:38)
[2022-09-20 03:52] LABS: Albumin 3.7 g/dL (3.2-5.2); Calcium 8.2 mg/dL (8.6-10.3); Total Bilirubin 0.6 mg/dL (0.2-1.0)
[2022-09-20 03:53] LABS: Potassium 4.1 mmol/L (3.5-5.0)
[2022-09-20 03:57] LABS: Albumin/Globulin Ratio 2.5 (1-3); CRP High Sensitivity 19.77 mg/L (<2.00); Globulin 1.5 g/dL (2-4); Total Protein 5.2 g/dL (6.4-8.9)
[2022-09-20 04:47] LABS: ABS Basophils 0.1 10^3/ul (0-0.2); ABS Lymphocytes 0.9 10^3/ul (1.0-4.8); ABS Monocytes 0.8 10^3/ul (0-0.8); ABS Neutrophils 38.5 10^3/ul (1.5-7.7); Eosinophil % 0.1 %; Lymphocyte % 2.2 %
[2022-09-20] MEDS ORDERED: Vancomycin 1,000 MG in NS 0.9% 250 ml 250 ML IVPB SCH (05:36)
[2022-09-20 05:40] LABS: C Reactive Protein 18.91 mg/L (<8.01)
[2022-09-20] MEDS ORDERED: Vancomycin per Pharmacy 1 EA NOTE FOLLOW UP PRN (05:52)
[2022-09-20] MEDS ORDERED: Cefepime 2 GM IV - ED ONCE IV ONE (06:00)
[2022-09-20] MEDS ORDERED: Vancomycin 1,000 MG - ED ONCE IVPB ONE (06:00)
[2022-09-20] MEDS ORDERED: Ondansetron 4 mg VIAL 2 MG/ML 2 ml VIAL IV PRN (06:33)
[2022-09-20] MEDS ORDERED: Ipratropium HFA INHALER(NF) (ALTERNATIVE = NEBS) INH PRN (06:36)
[2022-09-20] MEDS ORDERED: Albuterol HFA INHALER 8 gm MDI INH PRN (06:36)
[2022-09-20] MEDS ORDERED: Mometasone/Formoter 200/5 MDI INH PRN (06:51)
[2022-09-20] MEDS: Heparin 5000 UNITS/ML 1 mL VIAL SUBCUT SCH ×2 (07:41→14:11)
[2022-09-20] MEDS: Isosorbide Mononit ER 30mg TAB PO SCH (09:07)
[2022-09-20] MEDS: Vitamin THERAPEUTIC TAB PO SCH (09:07)
[2022-09-20] MEDS ORDERED: Cefepime 2 GM in Dextrose 2 GM/50 ML BAG IV SCH (13:00)
[2022-09-20] MEDS ORDERED: Cefepime ADVAN 1 GM in NS 0.9% 50 ML 50 ML IVPB SCH (16:00)
[2022-09-20] MEDS ORDERED: Cefepime 1 GM in Dextrose 1 GM/50 ML BAG IV SCH (17:00)
[2022-09-20] MEDS: methylPREDNISolone SOD SUCC 40 mg/ml 1 ml VIAL IV SCH (18:12)
[2022-09-20] MEDS: Heparin 1,000 UNIT/ML 10 ml (10,000 UNITS) CATHLAB/DIALYSIS DIALYSIS PRN ×3 (19:31→21:24)
[2022-09-20] MEDS ORDERED: guaiFENesin 100 mg/5 ml LIQ unit dose cup PO PRN (20:42)
[2022-09-20] MEDS ORDERED: Insulin GLARGINE 100 un/ml 10 ml VIAL SUBCUT SCH (21:00)
[2022-09-21] MEDS: Heparin 5000 UNITS/ML 1 mL VIAL SUBCUT SCH ×3 (00:30→14:23)
[2022-09-21] MEDS: methylPREDNISolone SOD SUCC 40 mg/ml 1 ml VIAL IV SCH (06:10)
[2022-09-21 06:46] LABS: Hematocrit 28 % (42-52); Hemoglobin 9.4 g/dL (14.0-18.0); Mean Corpuscular HGB Conc 33 g/dL (31-36); Mean Corpuscular Hemoglobin 33 pg (27-31); Mean Corpuscular Volume 100 fL (80-94); Red Blood Count 2.85 10^6 /uL (4.18-5.48); Red Cell Distribution Width 20 % (10-15)
[2022-09-21 06:47] LABS: ABS Lymphocytes 1.3 10^3/ul (1.0-4.8); ABS Monocytes 0.7 10^3/ul (0-0.8); ABS Neutrophils 13.9 10^3/ul (1.5-7.7)
[2022-09-21 07:08] LABS: Calcium 8.3 mg/dL (8.6-10.3); Magnesium 1.9 mg/dL (1.9-2.7); Potassium 4.1 mmol/L (3.5-5.0)
[2022-09-21 07:53] LABS: Mean Platelet Volume 7.7 fL (7.4-10.4); Platelet Count 93 10^3/uL (150-450)
[2022-09-21] MEDS: Vitamin THERAPEUTIC TAB PO SCH (08:18)
[2022-09-21] MEDS: Isosorbide Mononit ER 30mg TAB PO SCH (08:18)
[2022-09-21 11:48] VITALS: BP 155/75
[2022-09-21 13:14] LABS: Immunoglobulin A 21 mg/dL (61 - 356); Immunoglobulin G 284 mg/dL (767 - 1590); Immunoglobulin M <5 mg/dL (37 - 286)
[2022-09-22] MEDS ORDERED: Vancomycin Random Level NOTE FOLLOW UP ONE (06:00)
== END 2022-09-21 14:30 | disposition home or self-care (01) | DRG 193 ==
LOC: ED 02:12 → SUATTDRO 06:33 → EDHOLD 06:33 → MED 12:31
PROVIDERS: ADMIT Internal Medicine; ATTEND Internal Medicine

== ENCOUNTER 2023-10-10 15:19 | Inpatient (IN) ==
[2023-10-10 15:52] LABS: ABS Lymphocytes 0.6 10^3/uL (1.0-4.8); ABS Neutrophils 9.6 10^3/uL (1.5-7.6); ABS Nucleated RBC 0.01 10^3/ul; Eosinophil % 0.2 %; Hematocrit 28.5 % (38-53); Hemoglobin 9.7 g/dL (13.2-16.3); Lymphocyte % 5.5 %; Mean Corpuscular Hemoglobin 34.4 pg (27-33); Mean Corpuscular Hgb Conc 33.8 g/dL (31-36); Mean Corpuscular Volume 101.8 fL (80-97); Mean Platelet Volume 8.3 fL (7.5-11.2); Nucleated Red Blood Cells % 0.1 %/100WBC (0.0-0.8); Platelet Count 146 10^3/uL (150-450); Red Cell Distribution Width 18.5 % (12-17); White Blood Count 11.3 10^3/uL (3.6-10.2)
[2023-10-10 16:27] LABS: Albumin/Globulin Ratio 1.6 (1-3); Calcium 8.4 mg/dL (8.6-10.3); Creatinine, Serum 2.87 mg/dL (0.67-1.17); Direct Bilirubin 0.3 mg/dL (0.03-0.18); Globulin 2.5 g/dL (2-4); HDL Cholesterol 36.7 mg/dL; Indirect Bilirubin 0.8 mg/dL (0.3-1.0); Potassium 3.9 mmol/L (3.5-5.0); Total Bilirubin 1.1 mg/dL (0.2-1.0); Total Protein 6.5 g/dL (6.4-8.9); eGFR CKD-EPI 22.4 (>60)
[2023-10-10 16:30] LABS: PCO2 Arterial 35 mmHg (35-45); PO2 Arterial 107 mmHg (80-100)
[2023-10-10 16:43] LABS: Activated Partial Thrombo Time 38.4 seconds (26.0-38.0); INR 1.53 (0.83-1.13)
[2023-10-10] MEDS ORDERED: Ondansetron 4 mg VIAL 2 MG/ML 2 ml VIAL IV PRN (21:43)
[2023-10-10] MEDS ORDERED: Remdesivir 100 mg Vial 200 MG in NS 0.9% 250 ml 210 ML IV ONE (22:11)
[2023-10-10] MEDS ORDERED: Warfarin per PHARMACY **NOTE FOLLOW UP SCH (23:00)
[2023-10-11 01:20] LABS: Urine Appearance Cloudy; Urine Bilirubin Negative (Negative); Urine Blood 1+ (Negative); Urine Color Yellow; Urine Glucose 1+(50 mg/dL) (Negative); Urine Ketones Trace (Negative); Urine Nitrite Negative (Negative); Urine Protein 3+(>=500 mg/dL) (Negative); Urine Specific Gravity 1.017 (1.002-1.030); Urine Urobilinogen Negative (Negative)
[2023-10-11 01:42] LABS: Urine Bacteria Absent (Absent); Urine Granular Casts Present (Absent); Urine Red Blood Cell Trace(0-2/hpf) (Absent); Urine Squamous Epithelial Cell Present (Absent); Urine White Blood Cell Absent (Absent)
[2023-10-11 06:54] LABS: ABS Lymphocytes 0.7 10^3/uL (1.0-4.8); ABS Monocytes 0.5 10^3/uL (0.0-1.1); Hematocrit 26.1 % (38-53); Hemoglobin 8.8 g/dL (13.2-16.3); Mean Corpuscular Hemoglobin 34.3 pg (27-33); Mean Corpuscular Hgb Conc 33.9 g/dL (31-36); Mean Corpuscular Volume 101.1 fL (80-97); Mean Platelet Volume 8.1 fL (7.5-11.2); Platelet Count 141 10^3/uL (150-450); Red Blood Count 2.58 10^6/uL (4.06-5.63); White Blood Count 12.3 10^3/uL (3.6-10.2)
[2023-10-11 07:10] LABS: Calcium 8.2 mg/dL (8.6-10.3); Creatinine, Serum 3.51 mg/dL (0.67-1.17); eGFR CKD-EPI 17.6 (>60)
[2023-10-11 07:13] LABS: INR 1.49 (0.83-1.13)
[2023-10-11] MEDS ORDERED: Insulin ISOPH/REG 70/30 SUBCUT SCH (08:30)
[2023-10-11] MEDS ORDERED: NF: Pancrelipase 24,000 units (NF) PO SCH (09:00)
[2023-10-11] MEDS: Isosorbide Mononit ER 30mg TAB PO SCH (09:10)
[2023-10-11] MEDS ORDERED: Dextrose 50% Syringe 50 ml 25 GM/50 ML SYRINGE IV PUSH PRN (14:54)
[2023-10-11] MEDS ORDERED: NS 0.9% 1000 ml BAG 100 ML IV PRN (16:23)
[2023-10-11] MEDS ORDERED: Albumin Human 25% 25 GM/100 ML BTL IV PRN (16:23)
[2023-10-11] MEDS ORDERED: NS 0.9% 1000 ml BAG 200 ML IV PRN (16:23)
[2023-10-11] MEDS: Insulin ISOPH/REG 70/30 SUBCUT SCH (18:41)
[2023-10-11 19:46] LABS: Hepatitis B Surface Ab Not Immune (Immune)
[2023-10-11] MEDS ORDERED: Remdesivir 100 mg Vial 100 MG in NS 0.9% 250 ml 230 ML IV SCH (21:00)
[2023-10-11] MEDS: NF: Pancrelipase 24,000 units (NF) PO SCH (21:42)
[2023-10-11 23:43] LABS: Glucose Confirmatory 477 mg/dL (70-100)
[2023-10-12] MEDS ORDERED: Dextrose 50% Syringe 50 ml 25 GM/50 ML SYRINGE IV PUSH PRN (00:10)
[2023-10-12 07:28] LABS: ABS Lymphocytes 1.8 10^3/uL (1.0-4.8); ABS Neutrophils 9.5 10^3/uL (1.5-7.6); ABS Nucleated RBC 0.01 10^3/ul; Hematocrit 24.2 % (38-53); Hemoglobin 8.3 g/dL (13.2-16.3); Lymphocyte % 14.9 %; Mean Corpuscular Hemoglobin 33.7 pg (27-33); Mean Corpuscular Hgb Conc 34.2 g/dL (31-36); Mean Corpuscular Volume 98.8 fL (80-97); Nucleated Red Blood Cells % 0.1 %/100WBC (0.0-0.8); Platelet Count 168 10^3/uL (150-450); Red Blood Count 2.45 10^6/uL (4.06-5.63); Red Cell Distribution Width 18.3 % (12-17); White Blood Count 12.3 10^3/uL (3.6-10.2)
[2023-10-12 07:33] LABS: INR 1.44 (0.83-1.13)
[2023-10-12] MEDS ORDERED: Insulin ISOPH/REG 70/30 SUBCUT SCH (08:30)
[2023-10-12 08:34] LABS: Calcium 8.3 mg/dL (8.6-10.3); Creatinine, Serum 4.21 mg/dL (0.67-1.17); Magnesium 1.9 mg/dL (1.9-2.7); Phosphorus 4.6 mg/dL (2.5-5.0); Potassium 3.5 mmol/L (3.5-5.0); eGFR CKD-EPI 14.2 (>60)
[2023-10-12] MEDS ORDERED: Heparin 1,000 UNIT/ML 10 ml (10,000 UNITS) CATHLAB/DIALYSIS DIALYSIS PRN (09:00)
[2023-10-12] MEDS ORDERED: Senna TAB 8.6 mg TAB PO PRN (09:03)
[2023-10-12] MEDS: Isosorbide Mononit ER 30mg TAB PO SCH (10:31)
[2023-10-12 10:50] LABS: Hepatitis B Surface Antigen Nonreactive (Nonreactive)
[2023-10-12] MEDS: NF: Pancrelipase 24,000 units (NF) PO SCH (11:49)
[2023-10-12] MEDS ORDERED: Warfarin DAILY REMINDER **NOTE FOLLOW UP SCH (17:00)
[2023-10-12] MEDS: Insulin ISOPH/REG 70/30 SUBCUT SCH (17:13)
[2023-10-12 18:29] VITALS: BP 105/68
== END 2023-10-12 18:46 | disposition home or self-care (01) | DRG 177 ==
LOC: EDHOLD 15:19 → ED 15:19 → SUATTDRO 21:43 → MED 10-11
PROVIDERS: ADMIT Internal Medicine; ATTEND Internal Medicine

== ENCOUNTER 2024-03-04 08:10 | Inpatient (IN) ==
[~2024-03-04 08:10] MED LIST changes: -Buffered Lidocaine 0.9% SYRIN* 5 ML/SYR SYRINGE INTRADERM ONE; +ELOTUZUMAB IVPB SCH; -Famotidine IV* 10 MG/ML 2 ML (20 mg) IV ONE; +NS 0.9% IVPB SCH; -Ondansetron INJ* 2 MG/ML VIAL ONE
[2024-03-04 09:14] LABS: Hematocrit 24.3 % (38-53); Hemoglobin 8.4 g/dL (13.2-16.3); Mean Corpuscular Hemoglobin 35.3 pg (27-33); Mean Corpuscular Hgb Conc 34.5 g/dL (31-36); Mean Corpuscular Volume 102.3 fL (80-97); Mean Platelet Volume 6.9 fL (7.5-11.2); Platelet Count 187 10^3/uL (150-450); Red Blood Count 2.37 10^6/uL (4.06-5.63); Red Cell Distribution Width 17.3 % (12-17); White Blood Count 8.2 10^3/uL (3.6-10.2)
[2024-03-04 09:33] LABS: ABS Neutrophils 5.4 10^3/uL (1.5-7.6)
[2024-03-04 09:38] LABS: Albumin/Globulin Ratio 0.6 (1-3); Calcium 10.1 mg/dL (8.6-10.3); Creatinine, Serum 3.63 mg/dL (0.67-1.17); Globulin 4.7 g/dL (2-4); Potassium 3.5 mmol/L (3.5-5.0); Total Bilirubin 0.4 mg/dL (0.2-1.0); Total Protein 7.7 g/dL (6.4-8.9); eGFR CKD-EPI 16.9 (>60)
[2024-03-04] MEDS ORDERED: Tocilizumab 200 MG/10 ML 10 ml VIAL IVPB PRN (10:18)
[2024-03-04 10:59] LABS: ABS Basophils 0.1 10^3/uL (0.0-0.1); ABS Eosinophils 0.2 10^3/uL (0.0-0.5); ABS Lymphocytes 1.5 10^3/uL (1.0-4.8); ABS Monocytes 0.8 10^3/uL (0.0-1.1); ABS Nucleated RBC 0.01 10^3/ul; Eosinophil % 2.8 %; Lymphocyte % 18.7 %; Macrocytosis 1+; Nucleated Red Blood Cells % 0.1 %/100WBC (0.0-0.8)
[2024-03-04] MEDS: Dexamethasone IV 4 MG/ML VIAL 1 ml VIAL IV SLOW PU ONE (13:46)
[2024-03-04] MEDS: Acetaminophen IV 1 GM/100ML 1,000 MG/100 ML BAG IV ONE (13:50)
[2024-03-04] MEDS ORDERED: Albuterol (2.5 MG) 0.5 % CONC 0.5 ML NEB.SOLN INH PRN (14:18)
[2024-03-04] MEDS ORDERED: NS 0.9% 1000 ml BAG 100 ML IV PRN (15:33)
[2024-03-04] MEDS ORDERED: NS 0.9% 1000 ml BAG 200 ML IV PRN (15:33)
[2024-03-04] MEDS: [UNRECOGNIZED DRUG - OTHER] SUBCUT ONE (15:53)
[2024-03-04] MEDS ORDERED: Dextrose 50% Syringe 50 ml 25 GM/50 ML SYRINGE IV PUSH PRN (16:33)
[2024-03-04 20:35] LABS: Hepatitis B Surface Antigen Nonreactive (Nonreactive)
[2024-03-04 20:53] LABS: Hepatitis B Surface Ab Not Immune (Immune)
[2024-03-04] MEDS: Heparin 5000 UNITS/ML 1 mL VIAL SUBCUT SCH (21:40)
[2024-03-04] MEDS: Insulin GLARGINE 100 un/ml 10 ml VIAL SUBCUT SCH (21:40)
[2024-03-04] MEDS: [UNRECOGNIZED DRUG - OTHER] PO SCH (21:41)
[2024-03-04] MEDS: PROTEASE PO SCH (21:41)
[2024-03-04] MEDS: LIPASE PO SCH (21:41)
[2024-03-04] MEDS: AMYLASE PO SCH (21:41)
[2024-03-05] MEDS: Dexamethasone IV 4 MG/ML VIAL 1 ml VIAL IV SLOW PU PRN (00:25)
[2024-03-05 04:19] LABS: Hematocrit 23.9 % (38-53); Hemoglobin 8.3 g/dL (13.2-16.3); Mean Corpuscular Hemoglobin 35.5 pg (27-33); Mean Corpuscular Hgb Conc 34.8 g/dL (31-36); Mean Corpuscular Volume 101.8 fL (80-97); Mean Platelet Volume 7.2 fL (7.5-11.2); Platelet Count 176 10^3/uL (150-450); Red Blood Count 2.35 10^6/uL (4.06-5.63); Red Cell Distribution Width 17.3 % (12-17)
[2024-03-05 05:20] LABS: ABS Lymphocytes 0.7 10^3/uL (1.0-4.8); ABS Monocytes 0.1 10^3/uL (0.0-1.1); ABS Neutrophils 6.2 10^3/uL (1.5-7.6); ABS Nucleated RBC 0.01 10^3/ul; Eosinophil % 0.1 %; Nucleated Red Blood Cells % 0.1 %/100WBC (0.0-0.8)
[2024-03-05 05:39] LABS: Albumin 3.1 g/dL (3.2-5.2); Albumin/Globulin Ratio 0.7 (1-3); Calcium 10.6 mg/dL (8.6-10.3); Creatinine, Serum 4.36 mg/dL (0.67-1.17); Globulin 4.4 g/dL (2-4); Potassium 5.1 mmol/L (3.5-5.0); Total Bilirubin 0.4 mg/dL (0.2-1.0); Total Protein 7.5 g/dL (6.4-8.9); eGFR CKD-EPI 13.6 (>60)
[2024-03-05] MEDS ORDERED: Dextrose 50% Syringe 50 ml 25 GM/50 ML SYRINGE IV PUSH PRN ×2 (05:53→07:10)
[2024-03-05] MEDS: Heparin 1,000 UNIT/ML 10 ml (10,000 UNITS) CATHLAB/DIALYSIS DIALYSIS PRN (08:15)
[2024-03-05] MEDS: Insulin GLARGINE 100 un/ml 10 ml VIAL SUBCUT SCH ×2 (09:10→21:14)
[2024-03-05] MEDS: Isosorbide Mononit ER 60mg TAB PO SCH (09:11)
[2024-03-05] MEDS: Aspirin EC 325 mg TAB.EC PO SCH (09:11)
[2024-03-05] MEDS: Dexamethasone IV 4 MG/ML VIAL 1 ml VIAL ONE (09:18)
[2024-03-05] MEDS: Pancrelipase 5,000 units CAP PO SCH (10:17)
[2024-03-05] MEDS: Albumin Human 25% 25 GM/100 ML BTL IV PRN (11:07)
[2024-03-05] MEDS: Dexamethasone IV 4 MG/ML 5 ML VIAL (20 MG) IVPB ONE ×2 (11:22→15:58)
[2024-03-05 14:50] LABS: Kappa Free Light Chain 1.73 mg/dL; Lambda Free Light Chain, S 17.3 mg/dL
[2024-03-05] MEDS: COVID VAC 23-24(12+)(Moderna) SYR 0.5 ML IM ONE (17:14)
[2024-03-05] MEDS: Ondansetron ODT 4 mg TAB 4 MG TAB PO PRN (17:58)
[2024-03-05 20:04] LABS: Calcium 10.5 mg/dL (8.6-10.3); Creatinine, Serum 3.49 mg/dL (0.67-1.17); Magnesium 1.6 mg/dL (1.9-2.7); eGFR CKD-EPI 17.7 (>60)
[2024-03-05 20:13] LABS: Potassium 3.9 mmol/L (3.5-5.0)
[2024-03-05] MEDS: Magnesium Sulfate 2 gm BAG 2 GM/50 ML BAG IVPB ONE (21:06)
[2024-03-05 21:20] LABS: High Sensitivity Troponin 1 Hr 15 pg/mL (<20)
[2024-03-06 06:05] LABS: ABS Basophils 0.1 10^3/uL (0.0-0.1); ABS Monocytes 0.9 10^3/uL (0.0-1.1); ABS Neutrophils 15.8 10^3/uL (1.5-7.6); ABS Nucleated RBC 0.02 10^3/ul; Hematocrit 23.5 % (38-53); Lymphocyte % 5.6 %; Mean Corpuscular Hemoglobin 35.1 pg (27-33); Mean Corpuscular Hgb Conc 34.2 g/dL (31-36); Mean Corpuscular Volume 102.7 fL (80-97); Mean Platelet Volume 7.7 fL (7.5-11.2); Nucleated Red Blood Cells % 0.1 %/100WBC (0.0-0.8); Platelet Count 204 10^3/uL (150-450); Red Blood Count 2.29 10^6/uL (4.06-5.63); Red Cell Distribution Width 17.5 % (12-17); White Blood Count 17.8 10^3/uL (3.6-10.2)
[2024-03-06 06:47] LABS: Albumin 3.4 g/dL (3.2-5.2); Albumin/Globulin Ratio 0.7 (1-3); Calcium 11.3 mg/dL (8.6-10.3); Creatinine, Serum 4.26 mg/dL (0.67-1.17); Globulin 4.7 g/dL (2-4); Potassium 4.5 mmol/L (3.5-5.0); Total Bilirubin 0.3 mg/dL (0.2-1.0); Total Protein 8.1 g/dL (6.4-8.9)
[2024-03-06 07:21] LABS: Magnesium 2.4 mg/dL (1.9-2.7)
[2024-03-06 10:45] LABS: Flag, M-protein Isotype Positive (Negative); Immunoglobulin A (IgA), S 31 mg/dL (61 - 356); Immunoglobulin G (IgG), S 3130 mg/dL (767 - 1590); Immunoglobulin M (IgM), S <5 mg/dL (37 - 286); M-protein GL 2.908 g/dL
[2024-03-07 05:07] LABS: ABS Eosinophils 0.1 10^3/uL (0.0-0.5); ABS Lymphocytes 1.4 10^3/uL (1.0-4.8); ABS Monocytes 0.9 10^3/uL (0.0-1.1); ABS Neutrophils 8.6 10^3/uL (1.5-7.6); Hematocrit 24.8 % (38-53); Hemoglobin 8.6 g/dL (13.2-16.3); Lymphocyte % 12.6 %; Mean Corpuscular Hemoglobin 35.8 pg (27-33); Mean Corpuscular Hgb Conc 34.6 g/dL (31-36); Mean Corpuscular Volume 103.3 fL (80-97); Mean Platelet Volume 7.2 fL (7.5-11.2); Platelet Count 206 10^3/uL (150-450); Red Cell Distribution Width 17.9 % (12-17); White Blood Count 10.9 10^3/uL (3.6-10.2)
[2024-03-07 05:39] LABS: Albumin/Globulin Ratio 0.6 (1-3); Calcium 11.1 mg/dL (8.6-10.3); Creatinine, Serum 5.2 mg/dL (0.67-1.17); Globulin 4.7 g/dL (2-4); Potassium 4.2 mmol/L (3.5-5.0); Total Bilirubin 0.3 mg/dL (0.2-1.0); Total Protein 7.7 g/dL (6.4-8.9)
[2024-03-07] MEDS: Acetaminophen IV 1 GM/100ML 1,000 MG/100 ML BAG IV ONE (12:39)
[2024-03-07] MEDS: Dexamethasone IV 4 MG/ML VIAL 1 ml VIAL IV SLOW PU ONE (12:48)
[2024-03-07] MEDS: [UNRECOGNIZED DRUG - OTHER] SUBCUT ONE (14:38)
[2024-03-08 04:32] LABS: Hematocrit 24.9 % (38-53); Hemoglobin 8.6 g/dL (13.2-16.3); Mean Corpuscular Hemoglobin 34.9 pg (27-33); Mean Corpuscular Hgb Conc 34.3 g/dL (31-36); Mean Corpuscular Volume 101.6 fL (80-97); Mean Platelet Volume 6.9 fL (7.5-11.2); Platelet Count 211 10^3/uL (150-450); Red Blood Count 2.45 10^6/uL (4.06-5.63); Red Cell Distribution Width 17.2 % (12-17); White Blood Count 11.5 10^3/uL (3.6-10.2)
[2024-03-08 05:34] LABS: Albumin 3.4 g/dL (3.2-5.2); Albumin/Globulin Ratio 0.7 (1-3); Calcium 10.8 mg/dL (8.6-10.3); Creatinine, Serum 4.02 mg/dL (0.67-1.17); Globulin 4.8 g/dL (2-4); Potassium 4.7 mmol/L (3.5-5.0); Total Bilirubin 0.4 mg/dL (0.2-1.0); Total Protein 8.2 g/dL (6.4-8.9)
[2024-03-08 07:24] LABS: ABS Monocytes 0.5 10^3/uL (0.0-1.1); Eosinophil % 0.1 %; Lymphocyte % 8.4 %
[2024-03-08 07:25] LABS: RBC Morphology Normal (Normal); Smudge Cells Present
[2024-03-09 04:33] LABS: Hematocrit 26.4 % (38-53); Hemoglobin 9.2 g/dL (13.2-16.3); Mean Corpuscular Hemoglobin 35.5 pg (27-33); Mean Corpuscular Hgb Conc 34.6 g/dL (31-36); Mean Corpuscular Volume 102.6 fL (80-97); Mean Platelet Volume 7.1 fL (7.5-11.2); Platelet Count 208 10^3/uL (150-450); Red Blood Count 2.57 10^6/uL (4.06-5.63); Red Cell Distribution Width 17.6 % (12-17); White Blood Count 9.2 10^3/uL (3.6-10.2)
[2024-03-09 04:49] LABS: ABS Eosinophils 0.3 10^3/uL (0.0-0.5); ABS Lymphocytes 0.7 10^3/uL (1.0-4.8); ABS Monocytes 0.7 10^3/uL (0.0-1.1); ABS Neutrophils 7.5 10^3/uL (1.5-7.6); ABS Nucleated RBC 0.03 10^3/ul; Eosinophil % 3.6 %; Lymphocyte % 7.4 %; Nucleated Red Blood Cells % 0.3 %/100WBC (0.0-0.8)
[2024-03-09 05:00] LABS: Albumin 3.2 g/dL (3.2-5.2); Albumin/Globulin Ratio 0.7 (1-3); Calcium 10.9 mg/dL (8.6-10.3); Creatinine, Serum 4.73 mg/dL (0.67-1.17); Globulin 4.7 g/dL (2-4); Potassium 4.1 mmol/L (3.5-5.0); Total Bilirubin 0.4 mg/dL (0.2-1.0); Total Protein 7.9 g/dL (6.4-8.9); eGFR CKD-EPI 12.3 (>60)
[2024-03-10 04:25] LABS: Hematocrit 27.4 % (38-53); Hemoglobin 9.5 g/dL (13.2-16.3); Mean Corpuscular Hemoglobin 35.4 pg (27-33); Mean Corpuscular Hgb Conc 34.6 g/dL (31-36); Mean Corpuscular Volume 102.4 fL (80-97); Mean Platelet Volume 6.9 fL (7.5-11.2); Platelet Count 194 10^3/uL (150-450); Red Blood Count 2.67 10^6/uL (4.06-5.63); Red Cell Distribution Width 17.8 % (12-17); White Blood Count 10.1 10^3/uL (3.6-10.2)
[2024-03-10 04:50] LABS: Albumin 3.1 g/dL (3.2-5.2); Albumin/Globulin Ratio 0.6 (1-3); Calcium 11.6 mg/dL (8.6-10.3); Creatinine, Serum 5.47 mg/dL (0.67-1.17); Globulin 4.9 g/dL (2-4); Potassium 4.4 mmol/L (3.5-5.0); Total Bilirubin 0.3 mg/dL (0.2-1.0); eGFR CKD-EPI 10.3 (>60)
[2024-03-10 05:28] LABS: ABS Basophils 0.1 10^3/uL (0.0-0.1); ABS Eosinophils 0.4 10^3/uL (0.0-0.5); ABS Monocytes 1.1 10^3/uL (0.0-1.1); ABS Neutrophils 7.4 10^3/uL (1.5-7.6); ABS Nucleated RBC 0.01 10^3/ul; Anisocytosis 1+; Eosinophil % 4.4 %; Macrocytosis 1+; Nucleated Red Blood Cells % 0.1 %/100WBC (0.0-0.8); Polychromasia 1+
[2024-03-10] MEDS: [UNRECOGNIZED DRUG - OTHER] SUBCUT ONE (13:44)
[2024-03-11 04:35] LABS: Hematocrit 26.5 % (38-53); Mean Corpuscular Volume 102.8 fL (80-97); Mean Platelet Volume 7.2 fL (7.5-11.2); Platelet Count 159 10^3/uL (150-450); Red Blood Count 2.58 10^6/uL (4.06-5.63); Red Cell Distribution Width 17.9 % (12-17); White Blood Count 16.7 10^3/uL (3.6-10.2)
[2024-03-11 04:56] LABS: Albumin 3.7 g/dL (3.2-5.2); Albumin/Globulin Ratio 0.8 (1-3); Calcium 11.4 mg/dL (8.6-10.3); Creatinine, Serum 4.49 mg/dL (0.67-1.17); Globulin 4.7 g/dL (2-4); Potassium 4.9 mmol/L (3.5-5.0); Total Bilirubin 0.5 mg/dL (0.2-1.0); Total Protein 8.4 g/dL (6.4-8.9); eGFR CKD-EPI 13.1 (>60)
[2024-03-11 05:29] LABS: ABS Basophils 0.1 10^3/uL (0.0-0.1); ABS Eosinophils 0.1 10^3/uL (0.0-0.5); ABS Lymphocytes 0.1 10^3/uL (1.0-4.8); ABS Monocytes 0.2 10^3/uL (0.0-1.1); ABS Neutrophils 16.1 10^3/uL (1.5-7.6); ABS Nucleated RBC 0.01 10^3/ul; Anisocytosis 1+; Eosinophil % 0.5 %; Lymphocyte % 0.3 %; Macrocytosis 1+; Nucleated Red Blood Cells % 0.1 %/100WBC (0.0-0.8); Polychromasia 1+
[2024-03-11 12:31] LABS: Magnesium 1.5 mg/dL (1.9-2.7)
[2024-03-11] MEDS ORDERED: Dexamethasone IV 4 MG/ML VIAL 1 ml VIAL IV SLOW PU PRN (16:56)
[2024-03-11] MEDS ORDERED: Tocilizumab 200 MG/10 ML 10 ml VIAL IVPB PRN (16:57)
[2024-03-11] MEDS ORDERED: TOCILIZUMAB IVPB PRN (18:39)
[2024-03-11] MEDS ORDERED: [UNRECOGNIZED DRUG - OTHER] IVPB PRN (18:39)
[2024-03-12 04:46] LABS: Hematocrit 27.6 % (38-53); Hemoglobin 9.5 g/dL (13.2-16.3); Mean Corpuscular Hemoglobin 35.2 pg (27-33); Mean Corpuscular Hgb Conc 34.3 g/dL (31-36); Mean Corpuscular Volume 102.7 fL (80-97); Mean Platelet Volume 7.4 fL (7.5-11.2); Platelet Count 163 10^3/uL (150-450); Red Blood Count 2.69 10^6/uL (4.06-5.63); Red Cell Distribution Width 17.9 % (12-17); White Blood Count 14.1 10^3/uL (3.6-10.2)
[2024-03-12 05:25] LABS: Albumin 3.6 g/dL (3.2-5.2); Albumin/Globulin Ratio 0.7 (1-3); Calcium 12.1 mg/dL (8.6-10.3); Creatinine, Serum 5.42 mg/dL (0.67-1.17); Potassium 4.7 mmol/L (3.5-5.0); Total Bilirubin 0.5 mg/dL (0.2-1.0); Total Protein 8.6 g/dL (6.4-8.9); eGFR CKD-EPI 10.5 (>60)
[2024-03-12 05:49] LABS: ABS Basophils 0.1 10^3/uL (0.0-0.1); ABS Eosinophils 0.2 10^3/uL (0.0-0.5); ABS Lymphocytes 0.5 10^3/uL (1.0-4.8); ABS Monocytes 0.9 10^3/uL (0.0-1.1); ABS Neutrophils 12.3 10^3/uL (1.5-7.6); ABS Nucleated RBC 0.01 10^3/ul; Anisocytosis 1+; Eosinophil % 1.1 %; Lymphocyte % 3.9 %; Nucleated Red Blood Cells % 0.1 %/100WBC (0.0-0.8); Polychromasia 1+
[2024-03-12 12:49] VITALS: BP 119/56
== END 2024-03-12 14:27 | disposition home or self-care (01) | DRG 846 ==
LOC: CHOA 08:10 → ICU 12:45
PROVIDERS: ADMIT Internal Medicine Hematology & Oncology; ATTEND Student in an Organized Health Care Education/Training Program

== ENCOUNTER 2024-03-26 05:02 | Inpatient (IN) ==
[2024-03-26 05:27] LABS: ABS Lymphocytes 0.4 10^3/uL (1.0-4.8); ABS Monocytes 0.3 10^3/uL (0.0-1.1); ABS Neutrophils 6.3 10^3/uL (1.5-7.6); Hematocrit 26.1 % (38-53); Hemoglobin 8.9 g/dL (13.2-16.3); Lymphocyte % 5.6 %; Mean Corpuscular Hemoglobin 35.3 pg (27-33); Mean Corpuscular Hgb Conc 34.3 g/dL (31-36); Mean Corpuscular Volume 102.7 fL (80-97); Mean Platelet Volume 8.2 fL (7.5-11.2); Nucleated Red Blood Cells % 0.1 %/100WBC (0.0-0.8); Platelet Count 158 10^3/uL (150-450); Red Blood Count 2.54 10^6/uL (4.06-5.63); Red Cell Distribution Width 18.4 % (12-17)
[2024-03-26 05:32] LABS: INR 0.96 (0.83-1.13)
[2024-03-26 05:50] LABS: High Sens Troponin Baseline 16 pg/mL (<20)
[2024-03-26 06:26] LABS: ALT 13 U/L (7-52); Albumin 3.2 g/dL (3.2-5.2); Albumin/Globulin Ratio 0.8 (1-3); Alkaline Phosphatase 89 U/L (35-149); Anion Gap 10 mmol/L (2-16); Blood Urea Nitrogen 58 mg/dL (6-24); CO2 Carbon Dioxide 20 mmol/L (22-32); Chloride 97 mmol/L (101-111); Creatinine, Serum 4.71 mg/dL (0.67-1.17); Globulin 4.2 g/dL (2-4); Glucose 585 mg/dL (70-100); Sodium 127 mmol/L (135-145); Total Bilirubin 0.4 mg/dL (0.2-1.0); Total Protein 7.4 g/dL (6.4-8.9); eGFR CKD-EPI 12.4 (>60)
[2024-03-26 07:05] LABS: High Sensitivity Troponin 1 Hr 17 pg/mL (<20)
[2024-03-26 10:16] LABS: ABS Basophils 0.1 10^3/uL (0.0-0.1); ABS Lymphocytes 0.5 10^3/uL (1.0-4.8); ABS Monocytes 0.4 10^3/uL (0.0-1.1); ABS Neutrophils 7.4 10^3/uL (1.5-7.6); ABS Nucleated RBC 0.01 10^3/ul; Eosinophil % 0.1 %; Hemoglobin 9.1 g/dL (13.2-16.3); Lymphocyte % 6.4 %; Mean Corpuscular Hgb Conc 34.9 g/dL (31-36); Mean Corpuscular Volume 100.2 fL (80-97); Mean Platelet Volume 7.9 fL (7.5-11.2); Nucleated Red Blood Cells % 0.1 %/100WBC (0.0-0.8); Platelet Count 154 10^3/uL (150-450); Red Blood Count 2.59 10^6/uL (4.06-5.63); Red Cell Distribution Width 17.7 % (12-17); White Blood Count 8.5 10^3/uL (3.6-10.2)
[2024-03-26 10:29] LABS: Potassium Redraw 4.7 mmol/L (3.5-5.0)
[2024-03-26] MEDS ORDERED: Albumin Human 25% 25 GM/100 ML BTL IV PRN (11:52)
[2024-03-26] MEDS ORDERED: NS 0.9% 1000 ml BAG 100 ML IV PRN (11:52)
[2024-03-26] MEDS ORDERED: NS 0.9% 1000 ml BAG 200 ML IV PRN (11:52)
[2024-03-26 12:14] LABS: Albumin 3.3 g/dL (3.2-5.2); Albumin/Globulin Ratio 0.8 (1-3); Calcium 8.4 mg/dL (8.6-10.3); Creatinine, Serum 4.57 mg/dL (0.67-1.17); Globulin 4.2 g/dL (2-4); Potassium 4.7 mmol/L (3.5-5.0); Total Bilirubin 0.3 mg/dL (0.2-1.0); Total Protein 7.5 g/dL (6.4-8.9); eGFR CKD-EPI 12.8 (>60)
[2024-03-26] MEDS ORDERED: Dextrose 50% Syringe 50 ml 25 GM/50 ML SYRINGE IV PUSH PRN (12:14)
[2024-03-26] MEDS: Insulin GLARGINE 100 un/ml 10 ml VIAL SUBCUT ONE ×2 (13:47→18:48)
[2024-03-26] MEDS: Heparin 1,000 UNIT/ML 10 ml (10,000 UNITS) CATHLAB/DIALYSIS DIALYSIS PRN (14:00)
[2024-03-26 14:46] LABS: Hepatitis B Surface Antigen Nonreactive (Nonreactive)
[2024-03-26 15:04] LABS: Hepatitis B Surface Ab Not Immune (Immune)
[2024-03-26] MEDS ORDERED: Albuterol (2.5 MG) 0.5 % CONC 0.5 ML NEB.SOLN INH PRN (16:50)
[2024-03-26] MEDS: Pancrelipase 5,000 units CAP PO SCH (20:58)
[2024-03-26] MEDS ORDERED: Insulin GLARGINE 100 un/ml 10 ml VIAL SUBCUT SCH (21:00)
[2024-03-27 05:48] LABS: ABS Eosinophils 0.2 10^3/uL (0.0-0.5); ABS Lymphocytes 0.6 10^3/uL (1.0-4.8); ABS Monocytes 0.5 10^3/uL (0.0-1.1); ABS Neutrophils 7.6 10^3/uL (1.5-7.6); Eosinophil % 1.7 %; Hematocrit 29.2 % (38-53); Hemoglobin 10.1 g/dL (13.2-16.3); Lymphocyte % 6.4 %; Mean Corpuscular Hemoglobin 34.8 pg (27-33); Mean Corpuscular Hgb Conc 34.7 g/dL (31-36); Mean Corpuscular Volume 100.4 fL (80-97); Mean Platelet Volume 7.2 fL (7.5-11.2); Platelet Count 175 10^3/uL (150-450); Red Blood Count 2.91 10^6/uL (4.06-5.63); White Blood Count 8.8 10^3/uL (3.6-10.2)
[2024-03-27 06:26] LABS: Calcium 8.4 mg/dL (8.6-10.3); Creatinine, Serum 3.11 mg/dL (0.67-1.17); Magnesium 1.4 mg/dL (1.9-2.7); Potassium 3.3 mmol/L (3.5-5.0); eGFR CKD-EPI 20.4 (>60)
[2024-03-27] MEDS ORDERED: Regadenoson 0.4 MG/5 ML SYRINGE ONE ×2 (07:19→12:22)
[2024-03-27] MEDS ORDERED: Aminophylline 25 MG/ML VIAL ONE ×2 (07:19→12:22)
[2024-03-27 09:41] LABS: Folate 9.96 ng/mL (5.90-24.80)
[2024-03-27] MEDS: Insulin GLARGINE 100 un/ml 10 ml VIAL SUBCUT SCH (11:40)
[2024-03-27] MEDS: Potassium Chlor 20 meq TAB.ER PO ONE (12:03)
[2024-03-27] MEDS: Pantoprazole VIAL 40 MG VIAL IV SCH (12:03)
[2024-03-27] MEDS: Magnesium Sulfate IV 1GM/100ML 1 GM/100 ML BAG IV ONE (12:03)
[2024-03-27] MEDS: Vitamin THERAPEUTIC TAB PO SCH (12:03)
[2024-03-27] MEDS: Aspirin EC 325 mg TAB.EC PO SCH (12:04)
[2024-03-27] MEDS: Cholecalciferol (VIT D3) 1,000 unit TAB PO SCH (12:04)
[2024-03-27] MEDS: Isosorbide Mononit ER 30mg TAB PO SCH (12:04)
[2024-03-27] MEDS ORDERED: Ondansetron ODT 4 mg TAB 4 MG TAB ONE (13:18)
[2024-03-27] MEDS: Ondansetron ODT 4 mg TAB 4 MG TAB PO PRN (13:19)
[2024-03-27 14:14] VITALS: BP 96/56
== END 2024-03-27 16:55 | disposition home or self-care (01) | DRG 313 ==
LOC: EDHOLD 05:02 → ED 05:02 → MEDTELE 12:20
PROVIDERS: ADMIT Internal Medicine; ATTEND Internal Medicine

== ENCOUNTER 2024-04-03 08:01 | Inpatient (IN) ==
[2024-04-03 08:33] LABS: ABS Basophils 0.1 10^3/uL (0.0-0.1); ABS Eosinophils 0.1 10^3/uL (0.0-0.5); ABS Lymphocytes 0.5 10^3/uL (1.0-4.8); ABS Monocytes 0.8 10^3/uL (0.0-1.1); ABS Neutrophils 8.2 10^3/uL (1.5-7.6); Eosinophil % 1.2 %; Hematocrit 28.3 % (38-53); Hemoglobin 9.7 g/dL (13.2-16.3); Lymphocyte % 5.4 %; Mean Corpuscular Hemoglobin 34.1 pg (27-33); Mean Corpuscular Hgb Conc 34.3 g/dL (31-36); Mean Corpuscular Volume 99.3 fL (80-97); Mean Platelet Volume 7.2 fL (7.5-11.2); Platelet Count 200 10^3/uL (150-450); Red Blood Count 2.85 10^6/uL (4.06-5.63); Red Cell Distribution Width 18.1 % (12-17); White Blood Count 9.8 10^3/uL (3.6-10.2)
[2024-04-03 08:41] LABS: INR 0.95 (0.83-1.13)
[2024-04-03 09:23] LABS: Albumin 3.2 g/dL (3.2-5.2); Albumin/Globulin Ratio 0.7 (1-3); Calcium 8.8 mg/dL (8.6-10.3); Creatinine, Serum 3.62 mg/dL (0.67-1.17); Globulin 4.5 g/dL (2-4); Potassium 3.6 mmol/L (3.5-5.0); Total Bilirubin 0.5 mg/dL (0.2-1.0); Total Protein 7.7 g/dL (6.4-8.9)
[2024-04-03 10:02] LABS: High Sensitivity Troponin 1 Hr 28 pg/mL (<20)
[2024-04-03] MEDS: Nitroglycerin 0.2 mg/hr PATCH (5 mg) TRANSDERM ONE (12:34)
[2024-04-03] MEDS: Acetaminophen IV 1 GM/100ML 1,000 MG/100 ML BAG IV ONE (12:34)
[2024-04-03 13:14] LABS: High Sensitivity Troponin 3 Hr 32 pg/mL (<20)
[2024-04-03 14:18] LABS: Magnesium 1.5 mg/dL (1.9-2.7)
[2024-04-03] MEDS ORDERED: Sulfur Hexaflouride MICROSPHR 25 MG VIAL ONE (14:18)
[2024-04-03] MEDS ORDERED: Albuterol 2.5mg/3 ml (0.083%) NEB.SOLN INH PRN (14:45)
[2024-04-03] MEDS ORDERED: Dextrose 50% Syringe 50 ml 25 GM/50 ML SYRINGE IV PUSH PRN (14:53)
[2024-04-03] MEDS: Pantoprazole VIAL 40 MG VIAL IV ONE (15:26)
[2024-04-03] MEDS: Aspirin EC 325 mg TAB.EC PO SCH (15:26)
[2024-04-03] MEDS: Potassium Chlor 20 meq TAB.ER PO ONE (15:34)
[2024-04-03 16:38] LABS: Calcium 8.1 mg/dL (8.6-10.3); Creatinine, Serum 3.75 mg/dL (0.67-1.17); Magnesium 1.4 mg/dL (1.9-2.7); Potassium 3.6 mmol/L (3.5-5.0); eGFR CKD-EPI 16.3 (>60)
[2024-04-03] MEDS: Pancrelipase 5,000 units CAP PO SCH (19:16)
[2024-04-03] MEDS: Sulfur Hexaflouride MICROSPHR 25 MG VIAL IV ONE (20:16)
[2024-04-03] MEDS: Morphine 2 MG/ML SYRINGE IV ONE (23:00)
[2024-04-04 06:38] LABS: Calcium 8.3 mg/dL (8.6-10.3); Creatinine, Serum 3.96 mg/dL (0.67-1.17); Magnesium 1.5 mg/dL (1.9-2.7); Potassium 4.3 mmol/L (3.5-5.0); eGFR CKD-EPI 15.2 (>60)
[2024-04-04] MEDS ORDERED: NS 0.9% 1000 ml BAG 100 ML IV PRN (07:36)
[2024-04-04] MEDS ORDERED: NS 0.9% 1000 ml BAG 200 ML IV PRN (07:36)
[2024-04-04 07:40] LABS: ABS Eosinophils 0.2 10^3/uL (0.0-0.5); ABS Lymphocytes 0.8 10^3/uL (1.0-4.8); ABS Monocytes 0.9 10^3/uL (0.0-1.1); ABS Neutrophils 7.9 10^3/uL (1.5-7.6); ABS Nucleated RBC 0.01 10^3/ul; Eosinophil % 1.9 %; Hematocrit 28.5 % (38-53); Hemoglobin 9.7 g/dL (13.2-16.3); Lymphocyte % 7.9 %; Mean Corpuscular Hemoglobin 33.8 pg (27-33); Mean Corpuscular Hgb Conc 34.1 g/dL (31-36); Mean Corpuscular Volume 99.1 fL (80-97); Mean Platelet Volume 7.7 fL (7.5-11.2); Nucleated Red Blood Cells % 0.1 %/100WBC (0.0-0.8); Platelet Count 192 10^3/uL (150-450); Red Blood Count 2.88 10^6/uL (4.06-5.63); Red Cell Distribution Width 17.9 % (12-17); White Blood Count 9.8 10^3/uL (3.6-10.2)
[2024-04-04] MEDS: Magnesium Sulfate 2 gm BAG 2 GM/50 ML BAG IVPB ONE (08:14)
[2024-04-04] MEDS: Heparin 1,000 UNIT/ML 10 ml (10,000 UNITS) CATHLAB/DIALYSIS DIALYSIS PRN (09:14)
[2024-04-04] MEDS: Cholecalciferol (VIT D3) 1,000 unit TAB PO SCH (11:00)
[2024-04-04] MEDS: Vitamin THERAPEUTIC TAB PO SCH (11:00)
[2024-04-04] MEDS: Al Hydrox/Mg Hydrox/Simet LIQ 30 ML UDC PO SCH (11:01)
[2024-04-04] MEDS: Isosorbide Mononit ER 60mg TAB PO SCH (11:01)
[2024-04-04] MEDS: Insulin GLARGINE 100 un/ml 10 ml VIAL SUBCUT SCH (11:01)
[2024-04-04] MEDS: Isosorbide Mononit ER 30mg TAB PO SCH (11:06)
[2024-04-04] MEDS: Albumin Human 25% 25 GM/100 ML BTL IV PRN (11:48)
[2024-04-04 11:54] LABS: High Sensitivity Troponin 1 Hr 32 pg/mL (<20)
[2024-04-04] MEDS: Lidocaine PATCH 5% PATCH TRANSDERM SCH (20:00)
[2024-04-04] MEDS: Calcium Carb (TUMS) 500 mg CHEW TAB PO PRN (20:02)
[2024-04-04 23:11] LABS: Hepatitis B Surface Antigen Nonreactive (Nonreactive)
[2024-04-04 23:29] LABS: Hepatitis B Surface Ab Not Immune (Immune)
[2024-04-05 06:17] LABS: Hematocrit 29.3 % (38-53); Hemoglobin 9.9 g/dL (13.2-16.3); Mean Corpuscular Hemoglobin 33.8 pg (27-33); Mean Corpuscular Hgb Conc 33.9 g/dL (31-36); Mean Corpuscular Volume 99.8 fL (80-97); Mean Platelet Volume 7.1 fL (7.5-11.2); Platelet Count 184 10^3/uL (150-450); Red Blood Count 2.93 10^6/uL (4.06-5.63); Red Cell Distribution Width 18.2 % (12-17); White Blood Count 8.9 10^3/uL (3.6-10.2)
[2024-04-05 06:37] LABS: Calcium 8.5 mg/dL (8.6-10.3); Creatinine, Serum 3.5 mg/dL (0.67-1.17); Magnesium 1.9 mg/dL (1.9-2.7); Potassium 4.1 mmol/L (3.5-5.0); eGFR CKD-EPI 17.7 (>60)
[2024-04-05] MEDS: Insulin GLARGINE 100 un/ml 10 ml VIAL SUBCUT SCH (08:28)
[2024-04-05 10:34] VITALS: BP 99/62
== END 2024-04-05 14:50 | disposition home health service (06) | DRG 302 ==
LOC: ED 08:01 → EDHOLD 08:01 → OBSVTOIN 13:38 → SUATTDRO 13:38 → MEDTELE 17:19
PROVIDERS: ADMIT Internal Medicine; ATTEND Student in an Organized Health Care Education/Training Program

== ENCOUNTER 2024-04-10 04:10 | Inpatient (IN) ==
[2024-04-10] MEDS ORDERED: Piperacillin/Tazobac 3.375 BAG 3.375 GM/100 ML BAG IV ONE (05:04)
[2024-04-10] MEDS ORDERED: Vancomycin 1,000 MG BAG/ADDV ONE (05:05)
[2024-04-10] MEDS ORDERED: Cefepime 2 GM in Dextrose 2 GM/50 ML BAG IV ONE (05:18)
[2024-04-10 06:17] LABS: ABS Lymphocytes 0.6 10^3/uL (1.0-4.8); ABS Neutrophils 10.8 10^3/uL (1.5-7.6); ABS Nucleated RBC 0.01 10^3/ul; Eosinophil % 0.3 %; Hematocrit 23.5 % (38-53); Lymphocyte % 5.2 %; Mean Corpuscular Hemoglobin 33.3 pg (27-33); Mean Corpuscular Hgb Conc 34.2 g/dL (31-36); Mean Corpuscular Volume 97.3 fL (80-97); Mean Platelet Volume 7.7 fL (7.5-11.2); Nucleated Red Blood Cells % 0.1 %/100WBC (0.0-0.8); Platelet Count 197 10^3/uL (150-450); Red Blood Count 2.41 10^6/uL (4.06-5.63); Red Cell Distribution Width 17.3 % (12-17); White Blood Count 12.5 10^3/uL (3.6-10.2)
[2024-04-10 06:26] LABS: Albumin 3.3 g/dL (3.2-5.2); Albumin/Globulin Ratio 0.7 (1-3); Calcium 8.3 mg/dL (8.6-10.3); Creatinine, Serum 3.72 mg/dL (0.67-1.17); Globulin 4.7 g/dL (2-4); Potassium 3.7 mmol/L (3.5-5.0); Total Bilirubin 0.4 mg/dL (0.2-1.0); eGFR CKD-EPI 16.4 (>60)
[2024-04-10] MEDS: Furosemide 40 mg/4 ml IV VIAL IV ONE (08:54)
[2024-04-10 11:03] LABS: Urine Appearance Clear; Urine Bilirubin Negative (Negative); Urine Blood Negative (Negative); Urine Color Light-Yellow; Urine Glucose 2+ (>=150 mg/dL) (Negative); Urine Ketones Negative (Negative); Urine Nitrite Negative (Negative); Urine Protein 1+ (>=30 mg/dL) (Negative); Urine Specific Gravity 1.018 (1.002-1.030); Urine Urobilinogen Negative (Negative); Urine pH 5.5 (5.0-8.0)
[2024-04-10 11:19] LABS: Urine Bacteria Absent /HPF (Absent); Urine Red Blood Cell Trace(0-2/hpf) /HPF (0-Trace); Urine Squamous Epithelial Cell Present /HPF (Absent); Urine White Blood Cell Trace(0-5/hpf) /HPF (0-Trace)
[2024-04-10] MEDS: Ondansetron 4 mg VIAL 2 MG/ML 2 ml VIAL IV ONE (12:13)
[2024-04-10] MEDS ORDERED: Polyethylene Glycol 3350 17 GM PACKET PO PRN (13:20)
[2024-04-10] MEDS ORDERED: Senna TAB 8.6 mg TAB PO PRN (13:20)
[2024-04-10] MEDS ORDERED: Ondansetron 4 mg VIAL 2 MG/ML 2 ml VIAL IV PRN (13:20)
[2024-04-10 13:53] LABS: High Sensitivity Troponin 1 Hr 97 pg/mL (<20)
[2024-04-10] MEDS ORDERED: Albuterol (2.5 MG) 0.5 % CONC 0.5 ML NEB.SOLN INH PRN (14:15)
[2024-04-10 14:42] LABS: C Reactive Protein 34.05 mg/L (<8.01)
[2024-04-10] MEDS ORDERED: Zosyn per Pharmacy NOTE FOLLOW UP SCH (15:00)
[2024-04-10] MEDS: oxyCODONE/Acetamin 5/325 mg TAB PO SCH (16:55)
[2024-04-10] MEDS: ZOSYN 3.375 GM x ONE DOSE over 30 miuntes IV (16:56)
[2024-04-10] MEDS: Pancrelipase 5,000 units CAP PO SCH (17:14)
[2024-04-10] MEDS ORDERED: Vancomycin per Pharmacy 1 EA NOTE FOLLOW UP SCH (18:00)
[2024-04-10] MEDS: Vancomycin 1,500 MG in NS 0.9% 250 ml 250 ML IVPB ONE (18:36)
[2024-04-10] MEDS ORDERED: Dextrose 50% Syringe 50 ml 25 GM/50 ML SYRINGE IV PUSH PRN (19:47)
[2024-04-10] MEDS: ZOSYN 3.375 GM Q12H per EXTENDED INFUSION IV SCH (20:48)
[2024-04-11 06:22] LABS: ABS Basophils 0.1 10^3/uL (0.0-0.1); ABS Eosinophils 0.1 10^3/uL (0.0-0.5); ABS Lymphocytes 0.5 10^3/uL (1.0-4.8); ABS Monocytes 0.7 10^3/uL (0.0-1.1); ABS Neutrophils 7.7 10^3/uL (1.5-7.6); Eosinophil % 1.4 %; Hematocrit 22.1 % (38-53); Hemoglobin 7.7 g/dL (13.2-16.3); Lymphocyte % 5.2 %; Mean Corpuscular Hemoglobin 34.3 pg (27-33); Mean Corpuscular Hgb Conc 34.9 g/dL (31-36); Mean Corpuscular Volume 98.4 fL (80-97); Mean Platelet Volume 7.4 fL (7.5-11.2); Platelet Count 170 10^3/uL (150-450); Red Blood Count 2.24 10^6/uL (4.06-5.63); Red Cell Distribution Width 17.8 % (12-17)
[2024-04-11 06:57] LABS: C Reactive Protein 103.37 mg/L (<8.01); Magnesium 1.7 mg/dL (1.9-2.7)
[2024-04-11] MEDS ORDERED: NS 0.9% 1000 ml BAG 200 ML IV PRN (07:31)
[2024-04-11] MEDS ORDERED: NS 0.9% 1000 ml BAG 100 ML IV PRN (07:31)
[2024-04-11] MEDS: Isosorbide Mononit ER 60mg TAB PO SCH (07:54)
[2024-04-11] MEDS: Aspirin EC 325 mg TAB.EC PO SCH (08:04)
[2024-04-11] MEDS: Heparin 1,000 UNIT/ML 10 ml (10,000 UNITS) CATHLAB/DIALYSIS DIALYSIS PRN (09:05)
[2024-04-11] MEDS: Albumin Human 25% 25 GM/100 ML BTL IV PRN (11:34)
[2024-04-11] MEDS ORDERED: fentaNYL 100 mcg/2 ml 50 MCG/ML VIAL ONE (13:56)
[2024-04-11] MEDS ORDERED: Midazolam 5 mg/5 ml VIAL 1 mg/ml 5 ml VIAL (5 mg) ONE (13:56)
[2024-04-11] MEDS ORDERED: Naloxone 0.4 mg VIAL 0.4 mg/ml 1 ml VIAL ONE (13:59)
[2024-04-11] MEDS ORDERED: Flumazenil 0.5 mg/5 ml 0.1 MG/ML 5 ml VIAL ONE (13:59)
[2024-04-11] MEDS: Vancomycin Random Level NOTE FOLLOW UP ONE (14:14)
[2024-04-11] MEDS ORDERED: Naloxone 0.4 mg VIAL 0.4 mg/ml 1 ml VIAL IV PUSH PRN (14:30)
[2024-04-11] MEDS ORDERED: Flumazenil 0.5 mg/5 ml 0.1 MG/ML 5 ml VIAL IV PRN (14:30)
[2024-04-11] MEDS: fentaNYL 100 mcg/2 ml 50 MCG/ML VIAL IV SLOW PU ONE (15:14)
[2024-04-11] MEDS: Sulfur Hexaflouride MICROSPHR 25 MG VIAL IV ONE (15:14)
[2024-04-11] MEDS: Midazolam 10 mg/10 ml VIAL 1 mg/ml 10 ml VIAL (10 mg) IV SLOW PU ONE (15:15)
[2024-04-11] MEDS: Vancomycin 750 MG in NS 0.9% 250 ML IVPB ONE (15:44)
[2024-04-11] MEDS: Albuterol 2.5mg/3 ml (0.083%) NEB.SOLN INH PRN (18:06)
[2024-04-11] MEDS: Lidocaine PATCH 5% PATCH TRANSDERM SCH (20:30)
[2024-04-11] MEDS: Heparin 5000 UNITS/ML 1 mL VIAL SUBCUT SCH (20:32)
[2024-04-12 06:10] LABS: ABS Eosinophils 0.1 10^3/uL (0.0-0.5); ABS Lymphocytes 0.6 10^3/uL (1.0-4.8); ABS Monocytes 0.6 10^3/uL (0.0-1.1); ABS Neutrophils 3.7 10^3/uL (1.5-7.6); ABS Nucleated RBC 0.01 10^3/ul; Eosinophil % 1.5 %; Hematocrit 21.9 % (38-53); Hemoglobin 7.5 g/dL (13.2-16.3); Lymphocyte % 11.9 %; Mean Corpuscular Hemoglobin 34.3 pg (27-33); Mean Corpuscular Hgb Conc 34.4 g/dL (31-36); Mean Corpuscular Volume 99.6 fL (80-97); Mean Platelet Volume 7.6 fL (7.5-11.2); Nucleated Red Blood Cells % 0.2 %/100WBC (0.0-0.8); Platelet Count 178 10^3/uL (150-450); Red Blood Count 2.19 10^6/uL (4.06-5.63); Red Cell Distribution Width 17.8 % (12-17)
[2024-04-12 06:48] LABS: Calcium 7.8 mg/dL (8.6-10.3); Creatinine, Serum 3.43 mg/dL (0.67-1.17); Magnesium 1.7 mg/dL (1.9-2.7); Phosphorus 4.6 mg/dL (2.5-5.0); Potassium 4.5 mmol/L (3.5-5.0); eGFR CKD-EPI 18.1 (>60)
[2024-04-12 12:17] LABS: Glucose Confirmatory 434 mg/dL (70-100)
[2024-04-12] MEDS: Insulin GLARGINE 100 un/ml 10 ml VIAL SUBCUT SCH (20:28)
[2024-04-13 06:24] LABS: ABS Eosinophils 0.1 10^3/uL (0.0-0.5); ABS Lymphocytes 0.5 10^3/uL (1.0-4.8); ABS Monocytes 0.5 10^3/uL (0.0-1.1); ABS Neutrophils 5.2 10^3/uL (1.5-7.6); Eosinophil % 1.5 %; Hematocrit 23.4 % (38-53); Hemoglobin 8.1 g/dL (13.2-16.3); Lymphocyte % 8.3 %; Mean Corpuscular Hemoglobin 33.7 pg (27-33); Mean Corpuscular Hgb Conc 34.4 g/dL (31-36); Mean Corpuscular Volume 98.1 fL (80-97); Mean Platelet Volume 7.2 fL (7.5-11.2); Platelet Count 213 10^3/uL (150-450); Red Blood Count 2.39 10^6/uL (4.06-5.63); White Blood Count 6.4 10^3/uL (3.6-10.2)
[2024-04-13 07:56] LABS: Creatinine, Serum 3.59 mg/dL (0.67-1.17); Magnesium 1.5 mg/dL (1.9-2.7); Potassium 3.6 mmol/L (3.5-5.0); eGFR CKD-EPI 17.1 (>60)
[2024-04-13] MEDS: Magnesium Sulfate 2 gm BAG 2 GM/50 ML BAG IVPB ONE (09:51)
[2024-04-13] MEDS: Vancomycin 750 MG in NS 0.9% 250 ML IVPB ONE (11:48)
[2024-04-13] MEDS: Insulin GLARGINE 100 un/ml 10 ml VIAL SUBCUT SCH (20:47)
[2024-04-14 07:48] LABS: Hematocrit 23.2 % (38-53); Hemoglobin 8.2 g/dL (13.2-16.3); Mean Corpuscular Hemoglobin 34.3 pg (27-33); Mean Corpuscular Hgb Conc 35.1 g/dL (31-36); Mean Corpuscular Volume 97.7 fL (80-97); Mean Platelet Volume 7.5 fL (7.5-11.2); Platelet Count 208 10^3/uL (150-450); Red Blood Count 2.38 10^6/uL (4.06-5.63); Red Cell Distribution Width 18.2 % (12-17); White Blood Count 7.1 10^3/uL (3.6-10.2)
[2024-04-14 08:02] LABS: Calcium 8.1 mg/dL (8.6-10.3); Creatinine, Serum 4.14 mg/dL (0.67-1.17); Magnesium 1.7 mg/dL (1.9-2.7); Potassium 3.9 mmol/L (3.5-5.0); Vancomycin Random 21.8 mcg/mL; eGFR CKD-EPI 14.4 (>60)
[2024-04-14 08:46] LABS: ABS Eosinophils 0.2 10^3/uL (0.0-0.5); ABS Lymphocytes 0.8 10^3/uL (1.0-4.8); ABS Monocytes 0.5 10^3/uL (0.0-1.1); ABS Neutrophils 5.6 10^3/uL (1.5-7.6); Eosinophil % 2.5 %; Lymphocyte % 10.7 %
[2024-04-14] MEDS: Vancomycin Random Level NOTE FOLLOW UP ONE (13:57)
[2024-04-14] MEDS: Lidocaine 1% w EPI 1:100,000 MDV 50 ML VIAL INJ ONE (18:00)
[2024-04-14] MEDS: Vancomycin 750 MG in NS 0.9% 250 ML IVPB ONE (18:05)
[2024-04-15 06:56] LABS: Hemoglobin 8.1 g/dL (13.2-16.3); Mean Corpuscular Hemoglobin 34.4 pg (27-33); Mean Corpuscular Hgb Conc 35.3 g/dL (31-36); Mean Corpuscular Volume 97.4 fL (80-97); Mean Platelet Volume 7.1 fL (7.5-11.2); Platelet Count 196 10^3/uL (150-450); Red Blood Count 2.36 10^6/uL (4.06-5.63); Red Cell Distribution Width 17.9 % (12-17)
[2024-04-15 07:57] LABS: Calcium 8.1 mg/dL (8.6-10.3); Creatinine, Serum 3.19 mg/dL (0.67-1.17); Magnesium 1.5 mg/dL (1.9-2.7); eGFR CKD-EPI 19.8 (>60)
[2024-04-15 08:02] LABS: ABS Basophils 0.1 10^3/uL (0.0-0.1); ABS Eosinophils 0.2 10^3/uL (0.0-0.5); ABS Lymphocytes 0.8 10^3/uL (1.0-4.8); ABS Monocytes 0.6 10^3/uL (0.0-1.1); ABS Neutrophils 5.5 10^3/uL (1.5-7.6); Eosinophil % 2.5 %; Lymphocyte % 10.7 %
[2024-04-15] MEDS: Magnesium Sulf 4 GM/100 ML IV 4,000 MG/100 ML BAG IVPB ONE (11:55)
[2024-04-15] MEDS: Insulin ISOPH/REG 70/30 SUBCUT SCH (16:59)
[2024-04-16 06:56] LABS: ABS Basophils 0.1 10^3/uL (0.0-0.1); ABS Eosinophils 0.2 10^3/uL (0.0-0.5); ABS Lymphocytes 0.8 10^3/uL (1.0-4.8); ABS Monocytes 0.7 10^3/uL (0.0-1.1); ABS Neutrophils 9.1 10^3/uL (1.5-7.6); ABS Nucleated RBC 0.01 10^3/ul; Eosinophil % 1.6 %; Hemoglobin 8.2 g/dL (13.2-16.3); Lymphocyte % 7.6 %; Mean Corpuscular Hgb Conc 35.6 g/dL (31-36); Mean Corpuscular Volume 98.1 fL (80-97); Mean Platelet Volume 7.1 fL (7.5-11.2); Nucleated Red Blood Cells % 0.1 %/100WBC (0.0-0.8); Platelet Count 216 10^3/uL (150-450); Red Blood Count 2.34 10^6/uL (4.06-5.63); Red Cell Distribution Width 18.3 % (12-17); White Blood Count 10.9 10^3/uL (3.6-10.2)
[2024-04-16 08:37] LABS: Calcium 8.8 mg/dL (8.6-10.3); Creatinine, Serum 3.91 mg/dL (0.67-1.17); Magnesium 2.2 mg/dL (1.9-2.7); Potassium 4.3 mmol/L (3.5-5.0); eGFR CKD-EPI 15.5 (>60)
[2024-04-16] MEDS: Vancomycin Random Level NOTE FOLLOW UP ONE (09:08)
[2024-04-16] MEDS: Insulin ISOPH/REG 70/30 SUBCUT SCH ×2 (09:09→20:05)
[2024-04-16] MEDS: Vancomycin 750 MG in NS 0.9% 250 ML IVPB ONE (18:54)
[2024-04-17 07:10] LABS: Hematocrit 22.8 % (38-53); Mean Corpuscular Hgb Conc 34.9 g/dL (31-36); Mean Corpuscular Volume 97.7 fL (80-97); Mean Platelet Volume 7.1 fL (7.5-11.2); Platelet Count 211 10^3/uL (150-450); Red Blood Count 2.34 10^6/uL (4.06-5.63); Red Cell Distribution Width 18.3 % (12-17); White Blood Count 7.8 10^3/uL (3.6-10.2)
[2024-04-17 09:13] LABS: ABS Basophils 0.1 10^3/uL (0.0-0.1); ABS Eosinophils 0.2 10^3/uL (0.0-0.5); ABS Lymphocytes 0.9 10^3/uL (1.0-4.8); ABS Monocytes 0.7 10^3/uL (0.0-1.1); ABS Neutrophils 5.8 10^3/uL (1.5-7.6); Eosinophil % 2.3 %; Lymphocyte % 12.2 %; Nucleated Red Blood Cells % 0.1 %/100WBC (0.0-0.8)
[2024-04-17] MEDS: Insulin ISOPH/REG 70/30 SUBCUT SCH (10:03)
[2024-04-18 06:38] LABS: Hematocrit 24.1 % (38-53); Hemoglobin 8.1 g/dL (13.2-16.3); Mean Corpuscular Hemoglobin 33.1 pg (27-33); Mean Corpuscular Hgb Conc 33.9 g/dL (31-36); Mean Corpuscular Volume 97.7 fL (80-97); Platelet Count 241 10^3/uL (150-450); Red Blood Count 2.46 10^6/uL (4.06-5.63); Red Cell Distribution Width 18.7 % (12-17)
[2024-04-18 08:04] LABS: C Reactive Protein 64.05 mg/L (<8.01); Calcium 9.4 mg/dL (8.6-10.3); Creatinine, Serum 3.92 mg/dL (0.67-1.17); Magnesium 1.9 mg/dL (1.9-2.7); Potassium 4.6 mmol/L (3.5-5.0); eGFR CKD-EPI 15.4 (>60)
[2024-04-18 08:22] LABS: ABS Basophils 0.1 10^3/uL (0.0-0.1); ABS Eosinophils 0.2 10^3/uL (0.0-0.5); ABS Lymphocytes 1.2 10^3/uL (1.0-4.8); ABS Monocytes 0.7 10^3/uL (0.0-1.1); ABS Neutrophils 5.9 10^3/uL (1.5-7.6); ABS Nucleated RBC 0.01 10^3/ul; Eosinophil % 2.5 %; Lymphocyte % 14.7 %; Nucleated Red Blood Cells % 0.1 %/100WBC (0.0-0.8)
[2024-04-18 08:23] LABS: Anisocytosis 1+; Hypochromasia 1+
[2024-04-18 14:11] VITALS: BP 139/64
[2024-04-18] MEDS: Vancomycin 750 MG in NS 0.9% 250 ML IVPB ONE (14:48)
[2024-04-23] MEDS ORDERED: Vancomycin Random Level NOTE FOLLOW UP ONE (06:00)
== END 2024-04-18 17:06 | disposition home or self-care (01) | DRG 871 ==
LOC: ED 06:05 → EDHOLD 13:20 → MEDTELE 14:24
PROVIDERS: ADMIT Student in an Organized Health Care Education/Training Program; ATTEND Student in an Organized Health Care Education/Training Program

== ENCOUNTER 2024-04-24 00:54 | Inpatient (IN) ==
[2024-04-24 01:54] LABS: ABS Basophils 0.1 10^3/uL (0.0-0.1); ABS Eosinophils 0.1 10^3/uL (0.0-0.5); ABS Lymphocytes 0.7 10^3/uL (1.0-4.8); ABS Neutrophils 10.6 10^3/uL (1.5-7.6); Eosinophil % 0.5 %; Hematocrit 22.2 % (38-53); Hemoglobin 7.5 g/dL (13.2-16.3); Lymphocyte % 5.4 %; Mean Corpuscular Hemoglobin 32.5 pg (27-33); Mean Corpuscular Hgb Conc 33.6 g/dL (31-36); Mean Corpuscular Volume 96.5 fL (80-97); Mean Platelet Volume 7.2 fL (7.5-11.2); Platelet Count 223 10^3/uL (150-450); Red Cell Distribution Width 18.1 % (12-17); White Blood Count 12.4 10^3/uL (3.6-10.2)
[2024-04-24 01:57] LABS: INR 1.02 (0.83-1.13)
[2024-04-24] MEDS: Acetaminophen IV 1 GM/100ML 1,000 MG/100 ML BAG IV ONE (01:59)
[2024-04-24] MEDS: Cefepime 2 GM in Dextrose 2 GM/50 ML BAG IV ONE (02:04)
[2024-04-24 02:10] LABS: Albumin 3.2 g/dL (3.2-5.2); Albumin/Globulin Ratio 0.6 (1-3); Calcium 8.8 mg/dL (8.6-10.3); Creatinine, Serum 3.17 mg/dL (0.67-1.17); Globulin 5.1 g/dL (2-4); Potassium 3.4 mmol/L (3.5-5.0); Total Bilirubin 0.6 mg/dL (0.2-1.0); Total Protein 8.3 g/dL (6.4-8.9); eGFR CKD-EPI 19.9 (>60)
[2024-04-24 02:10] LABS: C Reactive Protein 35.87 mg/L (<8.01); Magnesium 1.8 mg/dL (1.9-2.7)
[2024-04-24 03:17] LABS: High Sensitivity Troponin 1 Hr 28 pg/mL (<20)
[2024-04-24] MEDS: Vancomycin 1,250 MG in NS 0.9% 250 ml 250 ML IVPB ONE (03:39)
[2024-04-24] MEDS ORDERED: Albuterol (2.5 MG) 0.5 % CONC 0.5 ML NEB.SOLN INH PRN (04:51)
[2024-04-24] MEDS ORDERED: Sulfur Hexaflouride MICROSPHR 25 MG VIAL IV ONE (05:09)
[2024-04-24 05:12] LABS: Ferritin 921.1 ng/mL (24-336)
[2024-04-24] MEDS ORDERED: Ondansetron ODT 4 mg TAB 4 MG TAB PO PRN (05:13)
[2024-04-24] MEDS: Magnesium Sulfate 2 gm BAG 2 GM/50 ML BAG IVPB ONE (06:40)
[2024-04-24] MEDS ORDERED: Vancomycin per Pharmacy 1 EA NOTE FOLLOW UP SCH (07:00)
[2024-04-24 07:42] LABS: ABS Basophils 0.1 10^3/uL (0.0-0.1); ABS Eosinophils 0.2 10^3/uL (0.0-0.5); ABS Lymphocytes 0.6 10^3/uL (1.0-4.8); ABS Monocytes 0.8 10^3/uL (0.0-1.1); ABS Neutrophils 7.2 10^3/uL (1.5-7.6); Eosinophil % 1.9 %; Hematocrit 21.3 % (38-53); Hemoglobin 7.3 g/dL (13.2-16.3); Lymphocyte % 7.1 %; Mean Corpuscular Hemoglobin 33.5 pg (27-33); Mean Corpuscular Hgb Conc 34.4 g/dL (31-36); Mean Corpuscular Volume 97.6 fL (80-97); Mean Platelet Volume 7.2 fL (7.5-11.2); Platelet Count 184 10^3/uL (150-450); Red Blood Count 2.18 10^6/uL (4.06-5.63); Red Cell Distribution Width 18.7 % (12-17); White Blood Count 8.9 10^3/uL (3.6-10.2)
[2024-04-24 08:15] LABS: Calcium 8.4 mg/dL (8.6-10.3); Creatinine, Serum 3.49 mg/dL (0.67-1.17); Potassium 3.6 mmol/L (3.5-5.0); eGFR CKD-EPI 17.7 (>60)
[2024-04-24 09:20] LABS: ABS Eosinophils 0.2 10^3/uL (0.0-0.5); ABS Lymphocytes 0.5 10^3/uL (1.0-4.8); ABS Monocytes 0.8 10^3/uL (0.0-1.1); ABS Neutrophils 6.6 10^3/uL (1.5-7.6); Eosinophil % 2.5 %; Hematocrit 19.8 % (38-53); Hemoglobin 6.9 g/dL (13.2-16.3); Lymphocyte % 6.4 %; Mean Corpuscular Hemoglobin 33.8 pg (27-33); Mean Corpuscular Hgb Conc 34.6 g/dL (31-36); Mean Corpuscular Volume 97.5 fL (80-97); Mean Platelet Volume 7.1 fL (7.5-11.2); Platelet Count 181 10^3/uL (150-450); Red Blood Count 2.03 10^6/uL (4.06-5.63); Red Cell Distribution Width 18.4 % (12-17); White Blood Count 8.1 10^3/uL (3.6-10.2)
[2024-04-24] MEDS: Enoxaparin 40 MG/0.4 ML SYR SUBCUT SCH (09:23)
[2024-04-24 09:25] LABS: Activated Partial Thrombo Time 24.8 seconds (26.0-38.0); INR 1.03 (0.83-1.13)
[2024-04-24] MEDS: Aspirin EC 325 mg TAB.EC PO SCH (09:56)
[2024-04-24] MEDS: Pancrelipase 5,000 units CAP PO SCH (09:57)
[2024-04-24 10:00] LABS: Creatinine, Serum 3.59 mg/dL (0.67-1.17); eGFR CKD-EPI 17.1 (>60)
[2024-04-24 10:45] LABS: Urine Appearance Clear; Urine Bilirubin Negative (Negative); Urine Blood Negative (Negative); Urine Color Yellow; Urine Glucose 1+ (>=70 mg/dL) (Negative); Urine Ketones Negative (Negative); Urine Nitrite Negative (Negative); Urine Protein 1+ (>=30 mg/dL) (Negative); Urine Specific Gravity 1.015 (1.002-1.030); Urine Urobilinogen Negative (Negative); Urine pH 5.5 (5.0-8.0)
[2024-04-24 11:09] LABS: Urine Bacteria Absent /HPF (Absent); Urine Red Blood Cell Trace(0-2/hpf) /HPF (0-Trace); Urine Squamous Epithelial Cell Present /HPF (Absent); Urine White Blood Cell 1+(6-10/hpf) /HPF (0-Trace)
[2024-04-24] MEDS: cefTRIAXone 1 gm/50 mL D5W 1 GM/50 ML BAG IV SCH (12:48)
[2024-04-24] MEDS: Azithromycin 500 mg/250 ml NS 500 MG/250 ML BAG IVPB SCH (13:26)
[2024-04-24] MEDS: Heparin 5000 UNITS/ML 1 mL VIAL SUBCUT SCH (13:26)
[2024-04-24] MEDS ORDERED: Dextrose 50% Syringe 50 ml 25 GM/50 ML SYRINGE IV PUSH PRN (14:16)
[2024-04-24 15:13] LABS: High Sensitivity Troponin 1 Hr 32 pg/mL (<20)
[2024-04-24] MEDS: Morphine 2 MG/ML SYRINGE IV PRN (21:42)
[2024-04-24 23:35] LABS: Hematocrit 25.5 % (38-53); Hemoglobin 8.7 g/dL (13.2-16.3)
[2024-04-25] MEDS: guaiFENesin 100 mg/5 ml LIQ unit dose cup ONE (05:14)
[2024-04-25 07:53] LABS: Hematocrit 27.5 % (38-53); Hemoglobin 9.4 g/dL (13.2-16.3); Mean Corpuscular Hemoglobin 31.9 pg (27-33); Mean Corpuscular Hgb Conc 34.1 g/dL (31-36); Mean Corpuscular Volume 93.7 fL (80-97); Mean Platelet Volume 7.3 fL (7.5-11.2); Platelet Count 194 10^3/uL (150-450); Red Blood Count 2.93 10^6/uL (4.06-5.63); Red Cell Distribution Width 19.4 % (12-17); White Blood Count 7.8 10^3/uL (3.6-10.2)
[2024-04-25] MEDS ORDERED: Dextrose 50% Syringe 50 ml 25 GM/50 ML SYRINGE IV PUSH PRN (08:00)
[2024-04-25 08:42] LABS: Calcium 8.5 mg/dL (8.6-10.3); Creatinine, Serum 4.28 mg/dL (0.67-1.17); Creatinine, Serum 4.32 mg/dL (0.67-1.17); Potassium 3.7 mmol/L (3.5-5.0); Vancomycin Trough 24.8 mcg/mL; eGFR CKD-EPI 13.7 (>60); eGFR CKD-EPI 13.9 (>60)
[2024-04-25] MEDS ORDERED: Cefepime 2 GM in Dextrose 2 GM/50 ML BAG IV SCH (09:00)
[2024-04-25] MEDS ORDERED: Albumin Human 25% 25 GM/100 ML BTL IV SCH (09:00)
[2024-04-25] MEDS: Heparin 1,000 UNIT/ML 10 ml (10,000 UNITS) CATHLAB/DIALYSIS ONE (09:45)
[2024-04-25 10:23] LABS: Hepatitis B Surface Ab Not Immune (Immune)
[2024-04-25] MEDS: Vancomycin Random Level NOTE FOLLOW UP ONE (11:10)
[2024-04-25 11:48] LABS: Hepatitis B Surface Antigen Nonreactive (Nonreactive)
[2024-04-25] MEDS: Vancomycin 750 MG in NS 0.9% 250 ML IVPB ONE (19:49)
[2024-04-25] MEDS ORDERED: Insulin GLARGINE 100 un/ml 10 ml VIAL SUBCUT SCH ×2 (21:00)
[2024-04-25] MEDS: Insulin GLARGINE 100 un/ml 10 ml VIAL SUBCUT SCH (21:29)
[2024-04-26 05:19] LABS: Hematocrit 30.1 % (38-53); Hemoglobin 10.2 g/dL (13.2-16.3); Mean Corpuscular Hemoglobin 31.3 pg (27-33); Mean Corpuscular Hgb Conc 33.8 g/dL (31-36); Mean Corpuscular Volume 92.6 fL (80-97); Mean Platelet Volume 7.4 fL (7.5-11.2); Platelet Count 211 10^3/uL (150-450); Red Blood Count 3.25 10^6/uL (4.06-5.63); Red Cell Distribution Width 19.5 % (12-17); White Blood Count 6.2 10^3/uL (3.6-10.2)
[2024-04-26 05:37] LABS: Calcium 8.7 mg/dL (8.6-10.3); Creatinine, Serum 2.92 mg/dL (0.67-1.17); Magnesium 1.7 mg/dL (1.9-2.7); Potassium 3.5 mmol/L (3.5-5.0)
[2024-04-26 06:36] LABS: ABS Eosinophils 0.3 10^3/uL (0.0-0.5); ABS Lymphocytes 0.8 10^3/uL (1.0-4.8); ABS Monocytes 0.9 10^3/uL (0.0-1.1); ABS Neutrophils 4.2 10^3/uL (1.5-7.6); Eosinophil % 4.6 %; Lymphocyte % 13.1 %
[2024-04-26] MEDS: Magnesium Sulfate 2 gm BAG 2 GM/50 ML BAG IVPB ONE (09:32)
[2024-04-26 14:27] VITALS: BP 110/51
[2024-04-28] MEDS ORDERED: Vancomycin Random Level NOTE FOLLOW UP ONE (06:00)
[2024-04-28 14:05] LABS: Kappa Free Light Chain 0.63 mg/dL; Lambda Free Light Chain, S 7.56 mg/dL
[2024-04-28 17:00] LABS: Flag, M-protein Isotype Positive (Negative); Immunoglobulin A (IgA), S <1 mg/dL (61 - 356); Immunoglobulin G (IgG), S 3760 mg/dL (767 - 1590); Immunoglobulin M (IgM), S <5 mg/dL (37 - 286); M-protein GL 3.466 g/dL
== END 2024-04-26 15:50 | disposition home or self-care (01) | DRG 871 ==
LOC: ED 00:54 → EDHOLD 00:54 → SUATTDRO 03:51 → MEDTELE 04:43
PROVIDERS: ADMIT Internal Medicine; ATTEND Hospitalist

== ENCOUNTER 2024-05-03 10:47 | Inpatient (IN) ==
[2024-05-03 11:42] LABS: ABS Basophils 0.3 10^3/uL (0.0-0.1); ABS Lymphocytes 0.6 10^3/uL (1.0-4.8); ABS Neutrophils 17.9 10^3/uL (1.5-7.6); Eosinophil % 0.2 %; Hematocrit 31.6 % (38-53); Hemoglobin 10.1 g/dL (13.2-16.3); Lymphocyte % 3.1 %; Mean Corpuscular Hemoglobin 30.6 pg (27-33); Mean Corpuscular Hgb Conc 32.1 g/dL (31-36); Mean Corpuscular Volume 95.2 fL (80-97); Mean Platelet Volume 7.3 fL (7.5-11.2); Platelet Count 182 10^3/uL (150-450); Red Blood Count 3.32 10^6/uL (4.06-5.63); Red Cell Distribution Width 19.2 % (12-17); White Blood Count 19.9 10^3/uL (3.6-10.2)
[2024-05-03 11:56] LABS: Activated Partial Thrombo Time 25.5 seconds (26.0-38.0); INR 1.16 (0.83-1.13)
[2024-05-03] MEDS: Cefepime 1 GM in Dextrose 1 GM/50 ML BAG IV ONE (11:56)
[2024-05-03 12:26] LABS: Albumin/Globulin Ratio 0.6 (1-3); Creatinine, Serum 3.73 mg/dL (0.67-1.17); Globulin 5.4 g/dL (2-4); Total Bilirubin 0.7 mg/dL (0.2-1.0); Total Protein 8.4 g/dL (6.4-8.9); eGFR CKD-EPI 16.4 (>60)
[2024-05-03] MEDS: Lactated Ringers 1000 ml BAG 1,000 ML IV ONE (13:14)
[2024-05-03 13:31] LABS: High Sensitivity Troponin 1 Hr 125 pg/mL (<20)
[2024-05-03] MEDS: Pancrelipase 5,000 units CAP PO SCH (18:47)
[2024-05-03] MEDS: Insulin ISOPH/REG 70/30 SUBCUT SCH (19:00)
[2024-05-03 19:52] LABS: Blood Urea Nitrogen 30 mg/dL (6-24); CO2 Carbon Dioxide 24 mmol/L (22-32); Calcium 8.3 mg/dL (8.6-10.3); Chloride 98 mmol/L (101-111); Creatinine, Serum 3.96 mg/dL (0.67-1.17); Glucose 146 mg/dL (70-100); Sodium 129 mmol/L (135-145); eGFR CKD-EPI 15.2 (>60)
[2024-05-03 19:54] LABS: Anion Gap 7 mmol/L (2-16)
[2024-05-03 21:30] LABS: TSH Ultra Thyroid Stim Horm 0.63 mcIU/mL (0.34-5.60)
[2024-05-03] MEDS: Heparin 5000 UNITS/ML 1 mL VIAL SUBCUT SCH (21:43)
[2024-05-03] MEDS ORDERED: Morphine ER 15 mg TAB ** extended release PO PRN (22:02)
[2024-05-03] MEDS ORDERED: oxyCODONE SR 10 mg TAB PO PRN (22:03)
[2024-05-03 22:25] LABS: Potassium Redraw 4.1 mmol/L (3.5-5.0)
[2024-05-04 05:34] LABS: ABS Eosinophils 0.2 10^3/uL (0.0-0.5); ABS Monocytes 0.8 10^3/uL (0.0-1.1); ABS Neutrophils 7.9 10^3/uL (1.5-7.6); Eosinophil % 2.1 %; Hematocrit 25.7 % (38-53); Hemoglobin 8.7 g/dL (13.2-16.3); Lymphocyte % 9.8 %; Mean Corpuscular Hemoglobin 32.2 pg (27-33); Mean Corpuscular Volume 94.6 fL (80-97); Mean Platelet Volume 7.5 fL (7.5-11.2); Platelet Count 148 10^3/uL (150-450); Red Blood Count 2.71 10^6/uL (4.06-5.63); Red Cell Distribution Width 18.9 % (12-17); White Blood Count 9.9 10^3/uL (3.6-10.2)
[2024-05-04 05:59] LABS: Calcium 8.3 mg/dL (8.6-10.3); Creatinine, Serum 4.17 mg/dL (0.67-1.17); Potassium 4.1 mmol/L (3.5-5.0); eGFR CKD-EPI 14.3 (>60)
[2024-05-04] MEDS: Cholecalciferol (VIT D3) 1,000 unit TAB PO SCH (09:41)
[2024-05-04] MEDS: Aspirin EC 325 mg TAB.EC PO SCH (09:42)
[2024-05-04] MEDS: Isosorbide Mononit ER 60mg TAB PO SCH (09:43)
[2024-05-04] MEDS: Cefepime 1 GM in Dextrose 1 GM/50 ML BAG IV SCH (09:43)
[2024-05-04] MEDS: Insulin ISOPH/REG 70/30 SUBCUT SCH (09:44)
[2024-05-04 13:55] LABS: Urine Appearance Turbid; Urine Bilirubin Negative (Negative); Urine Blood Trace (Negative); Urine Color Yellow; Urine Glucose 1+ (>=70 mg/dL) (Negative); Urine Ketones Negative (Negative); Urine Nitrite Negative (Negative); Urine Protein 1+ (>=30 mg/dL) (Negative); Urine Specific Gravity 1.018 (1.002-1.030); Urine Urobilinogen Negative (Negative); Urine pH 5.5 (5.0-8.0)
[2024-05-04 14:04] LABS: Urine Bacteria Absent /HPF (Absent); Urine Red Blood Cell 1+(3-5/hpf) /HPF (0-Trace); Urine Squamous Epithelial Cell Present /HPF (Absent); Urine White Blood Cell 2+(11-20/hpf) /HPF (0-Trace)
[2024-05-04] MEDS ORDERED: Dextrose 50% Syringe 50 ml 25 GM/50 ML SYRINGE IV PUSH PRN (19:30)
[2024-05-05] MEDS ORDERED: NS 0.9% 1000 ml BAG 200 ML IV PRN (02:20)
[2024-05-05] MEDS ORDERED: Albumin Human 25% 25 GM/100 ML BTL IV PRN (02:20)
[2024-05-05] MEDS ORDERED: NS 0.9% 1000 ml BAG 100 ML IV PRN (02:20)
[2024-05-05] MEDS: Heparin 1,000 UNIT/ML 10 ml (10,000 UNITS) CATHLAB/DIALYSIS DIALYSIS PRN (13:47)
[2024-05-05] MEDS ORDERED: Vancomycin per Pharmacy 1 EA NOTE FOLLOW UP PRN (14:54)
[2024-05-05] MEDS: HYDROmorphone 0.5 MG/0.5 ML SYRINGE IV SLOW PU PRN (16:05)
[2024-05-05] MEDS: Lidocaine PATCH 5% PATCH TRANSDERM SCH (17:20)
[2024-05-05] MEDS: Vancomycin 750 MG in NS 0.9% 250 ml 250 ML IVPB SCH (17:44)
[2024-05-06 06:17] LABS: ABS Basophils 0.1 10^3/uL (0.0-0.1); ABS Eosinophils 0.2 10^3/uL (0.0-0.5); ABS Lymphocytes 1.3 10^3/uL (1.0-4.8); ABS Monocytes 1.2 10^3/uL (0.0-1.1); ABS Neutrophils 5.5 10^3/uL (1.5-7.6); Eosinophil % 2.8 %; Hematocrit 27.7 % (38-53); Hemoglobin 9.5 g/dL (13.2-16.3); Lymphocyte % 15.5 %; Mean Corpuscular Hgb Conc 34.3 g/dL (31-36); Mean Corpuscular Volume 93.4 fL (80-97); Mean Platelet Volume 7.3 fL (7.5-11.2); Platelet Count 174 10^3/uL (150-450); Red Blood Count 2.97 10^6/uL (4.06-5.63); Red Cell Distribution Width 19.2 % (12-17); White Blood Count 8.3 10^3/uL (3.6-10.2)
[2024-05-06 06:51] LABS: Calcium 8.7 mg/dL (8.6-10.3); Creatinine, Serum 3.63 mg/dL (0.67-1.17); Magnesium 1.7 mg/dL (1.9-2.7); eGFR CKD-EPI 16.9 (>60)
[2024-05-06 09:55] VITALS: BP 106/60
[2024-05-07] MEDS ORDERED: Vancomycin Random Level NOTE FOLLOW UP ONE (06:00)
== END 2024-05-06 14:05 | disposition home or self-care (01) | DRG 871 ==
LOC: EDHOLD 10:47 → ED 10:47 → SSU 15:16 → MEDTELE 15:27
PROVIDERS: ADMIT Internal Medicine; ATTEND Internal Medicine

== ENCOUNTER 2024-07-23 12:10 | Inpatient (IN) ==
[2024-07-23 13:25] LABS: ABS Eosinophils 0.1 10^3/uL (0.0-0.5); ABS Lymphocytes 1.3 10^3/uL (1.0-4.8); ABS Monocytes 0.6 10^3/uL (0.0-1.1); ABS Neutrophils 4.9 10^3/uL (1.5-7.6); Eosinophil % 2.1 %; Hematocrit 27.5 % (38-53); Hemoglobin 9.1 g/dL (13.2-16.3); Mean Corpuscular Hemoglobin 32.9 pg (27-33); Mean Corpuscular Volume 99.9 fL (80-97); Mean Platelet Volume 6.8 fL (7.5-11.2); Nucleated Red Blood Cells % 0.1 %/100WBC (0.0-0.8); Platelet Count 178 10^3/uL (150-450); Red Blood Count 2.75 10^6/uL (4.06-5.63); Red Cell Distribution Width 19.6 % (12-17)
[2024-07-23 14:41] LABS: High Sensitivity Troponin 1 Hr 42 pg/mL (<20)
[2024-07-23 14:44] LABS: Albumin 2.5 g/dL (3.2-5.2); Albumin/Globulin Ratio 0.3 (1-3); Calcium 11.2 mg/dL (8.6-10.3); Creatinine, Serum 6.03 mg/dL (0.67-1.17); Globulin 7.6 g/dL (2-4); Potassium 3.6 mmol/L (3.5-5.0); Total Bilirubin 0.4 mg/dL (0.2-1.0); Total Protein 10.1 g/dL (6.4-8.9); eGFR CKD-EPI 9.1 (>60)
[2024-07-23 16:29] LABS: High Sensitivity Troponin 3 Hr 49 pg/mL (<20)
[2024-07-23] MEDS ORDERED: Dextrose 50% Syringe 50 ml 25 GM/50 ML SYRINGE IV PUSH PRN (18:36)
[2024-07-23] MEDS: Calcitonin (Salmon) INJ 200 UNITS/ML 2 ML VIAL (400 units) SUBCUT ONE (19:26)
[2024-07-23 19:46] LABS: Urine Appearance Clear; Urine Bilirubin Negative (Negative); Urine Blood 1+ (Negative); Urine Color Yellow; Urine Glucose Negative (Negative); Urine Ketones Negative (Negative); Urine Nitrite Negative (Negative); Urine Protein 1+ (>=30 mg/dL) (Negative); Urine Specific Gravity 1.019 (1.002-1.030); Urine Urobilinogen Negative (Negative); Urine pH 5.5 (5.0-8.0)
[2024-07-23 20:07] LABS: Urine Creatinine Concentration 121.14 mg/dL (20.00-370.00)
[2024-07-23 20:15] LABS: Urine Creatinine Concentration 123.85 mg/dL (20.00-370.00)
[2024-07-23] MEDS ORDERED: NS 0.9% 1000 ml BAG 200 ML IV PRN (20:15)
[2024-07-23 20:22] LABS: Urine Bacteria 1+ /HPF (Absent); Urine Red Blood Cell 1+(3-5/hpf) /HPF (0-Trace); Urine Squamous Epithelial Cell Present /HPF (Absent); Urine White Blood Cell 2+(11-20/hpf) /HPF (0-Trace)
[2024-07-23 21:03] LABS: Urine Osmo 298 mOsm/kg (150-1150)
[2024-07-23] MEDS: Aspirin EC 325 mg TAB.EC PO SCH (21:31)
[2024-07-23] MEDS: Heparin 5000 UNITS/ML 1 mL VIAL SUBCUT SCH (21:34)
[2024-07-23 22:07] LABS: Creatinine, Serum 5.99 mg/dL (0.67-1.17); Renal Sodium Excretion 1.45 %
[2024-07-23] MEDS: AMYLASE PO SCH (22:17)
[2024-07-23] MEDS: LIPASE PO SCH (22:17)
[2024-07-23] MEDS: [UNRECOGNIZED DRUG - OTHER] PO SCH (22:17)
[2024-07-23] MEDS: PROTEASE PO SCH (22:17)
[2024-07-23 22:19] LABS: Hepatitis B Surface Ab Not Immune (Immune)
[2024-07-24 07:04] LABS: ABS Eosinophils 0.2 10^3/uL (0.0-0.5); ABS Monocytes 0.5 10^3/uL (0.0-1.1); ABS Neutrophils 3.3 10^3/uL (1.5-7.6); Eosinophil % 2.9 %; Hematocrit 24.5 % (38-53); Hemoglobin 8.5 g/dL (13.2-16.3); Lymphocyte % 32.9 %; Mean Corpuscular Hemoglobin 34.3 pg (27-33); Mean Corpuscular Hgb Conc 34.6 g/dL (31-36); Mean Corpuscular Volume 99.1 fL (80-97); Mean Platelet Volume 7.1 fL (7.5-11.2); Nucleated Red Blood Cells % 0.1 %/100WBC (0.0-0.8); Platelet Count 166 10^3/uL (150-450); Red Blood Count 2.47 10^6/uL (4.06-5.63); Red Cell Distribution Width 19.5 % (12-17); White Blood Count 6.1 10^3/uL (3.6-10.2)
[2024-07-24 07:25] LABS: Calcium 10.4 mg/dL (8.6-10.3); Creatinine, Serum 6.33 mg/dL (0.67-1.17); eGFR CKD-EPI 8.6 (>60)
[2024-07-24 09:27] LABS: Albumin 2.2 g/dL (3.2-5.2)
[2024-07-24] MEDS: Heparin 1,000 UNIT/ML 10 ml (10,000 UNITS) CATHLAB/DIALYSIS DIALYSIS PRN (10:00)
[2024-07-24] MEDS: Albumin Human 25% 25 GM/100 ML BTL IV PRN (10:46)
[2024-07-24 10:57] LABS: Hepatitis B Surface Antigen Nonreactive (Nonreactive)
[2024-07-24] MEDS: NS 0.9% 1000 ml BAG 100 ML IV PRN (11:32)
[2024-07-24] MEDS: Isosorbide Mononit ER 30mg TAB PO SCH (15:20)
[2024-07-24] MEDS: Multivitamins/Minerals TAB PO SCH (15:21)
[2024-07-24 22:21] LABS: Osmolality Serum 298 mOsm/kg (275-295)
[2024-07-25 06:09] LABS: Hemoglobin 8.1 g/dL (13.2-16.3); Mean Corpuscular Hemoglobin 33.3 pg (27-33); Mean Corpuscular Hgb Conc 33.6 g/dL (31-36); Mean Corpuscular Volume 99.3 fL (80-97); Mean Platelet Volume 6.9 fL (7.5-11.2); Platelet Count 162 10^3/uL (150-450); Red Blood Count 2.42 10^6/uL (4.06-5.63); Red Cell Distribution Width 19.6 % (12-17); White Blood Count 6.2 10^3/uL (3.6-10.2)
[2024-07-25 07:01] LABS: Creatinine, Serum 4.74 mg/dL (0.67-1.17); Potassium 3.7 mmol/L (3.5-5.0); eGFR CKD-EPI 12.2 (>60)
[2024-07-25] MEDS: Pancrelipase 5,000 units CAP PO SCH (17:23)
[2024-07-25] MEDS: HYDROmorphone 0.5 MG/0.5 ML SYRINGE IV SLOW PU ONE (23:47)
[2024-07-26] MEDS: Bumetanide IV 0.25 MG/ML 4 ml VIAL (1 mg) IV SLOW PU PRN (00:05)
[2024-07-26 03:08] LABS: Urine Appearance Turbid; Urine Bilirubin Negative (Negative); Urine Blood 1+ (Negative); Urine Color Yellow; Urine Glucose Negative (Negative); Urine Ketones Trace (Negative); Urine Nitrite Negative (Negative); Urine Protein 2+ (>=100 mg/dL) (Negative); Urine Specific Gravity 1.025 (1.002-1.030); Urine Urobilinogen Negative (Negative); Urine pH 5.5 (5.0-8.0)
[2024-07-26 03:16] LABS: Urine Bacteria 1+ /HPF (Absent); Urine Red Blood Cell 1+(3-5/hpf) /HPF (0-Trace); Urine Squamous Epithelial Cell Present /HPF (Absent); Urine White Blood Cell 3+(>20/hpf) /HPF (0-Trace)
[2024-07-26] MEDS: Acetaminophen IV 1 GM/100ML 1,000 MG/100 ML BAG IV ONE ×2 (04:21→10:30)
[2024-07-26] MEDS: cefTRIAXone 2 gm/50 mL D5W 2 GM/50 ML BAG IV SCH (04:49)
[2024-07-26] MEDS ORDERED: Bumetanide IV 0.25 MG/ML 4 ml VIAL (1 mg) IV SLOW PU PRN ×2 (05:49→06:00)
[2024-07-26] MEDS ORDERED: Lorazepam PYXIS KEY PRN (05:59)
[2024-07-26] MEDS: LORazepam 2 mg VIAL 1 ml IV PUSH ONE (06:11)
[2024-07-26] MEDS: Bumetanide IV 0.25 MG/ML 4 ml VIAL (1 mg) IV SLOW PU ONE (06:25)
[2024-07-26 06:36] LABS: ABS Lymphocytes 0.9 10^3/uL (1.0-4.8); ABS Monocytes 0.6 10^3/uL (0.0-1.1); Eosinophil % 0.1 %; Hematocrit 27.1 % (38-53); Hemoglobin 9.2 g/dL (13.2-16.3); Lymphocyte % 9.4 %; Mean Corpuscular Hemoglobin 33.7 pg (27-33); Mean Corpuscular Hgb Conc 33.9 g/dL (31-36); Mean Corpuscular Volume 99.5 fL (80-97); Mean Platelet Volume 7.2 fL (7.5-11.2); Platelet Count 180 10^3/uL (150-450); Red Blood Count 2.73 10^6/uL (4.06-5.63); Red Cell Distribution Width 19.4 % (12-17); White Blood Count 9.6 10^3/uL (3.6-10.2)
[2024-07-26 07:16] LABS: Calcium 9.6 mg/dL (8.6-10.3); Creatinine, Serum 4.03 mg/dL (0.67-1.17); Magnesium 1.6 mg/dL (1.9-2.7); Potassium 3.9 mmol/L (3.5-5.0); eGFR CKD-EPI 14.8 (>60)
[2024-07-26] MEDS ORDERED: Zosyn per Pharmacy NOTE FOLLOW UP SCH (09:00)
[2024-07-26] MEDS: Piperacillin/Tazobac 3.375 BAG 3.375 GM/100 ML BAG IV ONE (11:03)
[2024-07-26 11:06] LABS: Venous Bicarbonate HCO3 26.4 mmol/L (24-28)
[2024-07-26] MEDS: Norepinephrine 4 MG/250mL D5W 4,000 MCG/250 ML BAG IV SCH (11:51)
[2024-07-26 11:53] LABS: Calcium 9.3 mg/dL (8.6-10.3); Creatinine, Serum 4.39 mg/dL (0.67-1.17); Potassium 4.4 mmol/L (3.5-5.0); eGFR CKD-EPI 13.4 (>60)
[2024-07-26] MEDS: ZOSYN 3.375 GM Q12H per EXTENDED INFUSION IV SCH (16:43)
[2024-07-26] MEDS: Senna TAB 8.6 mg TAB PO PRN (17:48)
[2024-07-26] MEDS: HYDROmorphone 0.5 MG/0.5 ML SYRINGE IV SLOW PU PRN (23:05)
[2024-07-27 04:27] LABS: ABS Lymphocytes 0.9 10^3/uL (1.0-4.8); ABS Monocytes 0.7 10^3/uL (0.0-1.1); ABS Neutrophils 8.4 10^3/uL (1.5-7.6); Eosinophil % 0.2 %; Hemoglobin 8.5 g/dL (13.2-16.3); Lymphocyte % 9.1 %; Mean Corpuscular Hgb Conc 32.9 g/dL (31-36); Mean Corpuscular Volume 100.4 fL (80-97); Mean Platelet Volume 7.2 fL (7.5-11.2); Platelet Count 174 10^3/uL (150-450); Red Blood Count 2.59 10^6/uL (4.06-5.63); Red Cell Distribution Width 19.2 % (12-17); White Blood Count 10.1 10^3/uL (3.6-10.2)
[2024-07-27 05:05] LABS: Calcium 9.8 mg/dL (8.6-10.3); Creatinine, Serum 3.61 mg/dL (0.67-1.17); Magnesium 1.7 mg/dL (1.9-2.7); Potassium 3.6 mmol/L (3.5-5.0); eGFR CKD-EPI 16.9 (>60)
[2024-07-27] MEDS: Isosorbide Mononit ER 30mg TAB PO SCH (09:30)
[2024-07-28] MEDS: Acetaminophen IV 1 GM/100ML 1,000 MG/100 ML BAG IV SCH (00:28)
[2024-07-28] MEDS: HYDROmorphone 0.5 MG/0.5 ML SYRINGE IV SLOW PU ONE (03:06)
[2024-07-28] MEDS: Polyethylene Glycol 3350 17 GM PACKET PO PRN (08:51)
[2024-07-28 13:11] LABS: ABS Eosinophils 0.1 10^3/uL (0.0-0.5); ABS Lymphocytes 1.2 10^3/uL (1.0-4.8); ABS Monocytes 0.6 10^3/uL (0.0-1.1); ABS Neutrophils 8.8 10^3/uL (1.5-7.6); ABS Nucleated RBC 0.01 10^3/ul; Eosinophil % 0.5 %; Hematocrit 25.5 % (38-53); Hemoglobin 8.6 g/dL (13.2-16.3); Lymphocyte % 11.2 %; Mean Corpuscular Hemoglobin 33.6 pg (27-33); Mean Corpuscular Hgb Conc 33.6 g/dL (31-36); Mean Corpuscular Volume 99.9 fL (80-97); Mean Platelet Volume 7.5 fL (7.5-11.2); Platelet Count 187 10^3/uL (150-450); Red Blood Count 2.55 10^6/uL (4.06-5.63); Red Cell Distribution Width 18.8 % (12-17); White Blood Count 10.6 10^3/uL (3.6-10.2)
[2024-07-28 14:15] LABS: Calcium 10.3 mg/dL (8.6-10.3); Creatinine, Serum 5.42 mg/dL (0.67-1.17); Potassium 3.5 mmol/L (3.5-5.0); eGFR CKD-EPI 10.4 (>60)
[2024-07-28 17:30] VITALS: BP 128/79
[2024-07-29] MEDS: Atropine 1% (ORAL/SL) 15 ML BTL SL PRN (13:00)
[2024-07-30] MEDS: Morphine ORAL CONCENTRATE 5 MG/0.25 ML ORAL.SYRIN SL PRN (20:23)
== END 2024-08-01 10:25 | disposition hospice, home (50) | DRG 291 ==
LOC: ED 12:10 → EDHOLD 12:10 → MEDTELE 19:57 → SUATTDRO 07-24 03:06 → ICU 07-26 10:15 → MEDTELE 07-27 08:20
PROVIDERS: ADMIT Student in an Organized Health Care Education/Training Program; ATTEND Hospitalist